=== PATIENT | female | born 1940 | race Caucasian/White ===

== ENCOUNTER 2016-06-06 13:15 | Inpatient (IN) | payer MEDICARE, OTHER ==
[~2016-06-06] VITALS: Ht 162.6 cm; Wt 127.0 kg
[2016-06-06] VITALS (10 sets, daily range): BP systolic 102–143; BP diastolic 54–80
[~2016-06-06 13:15] MED LIST: ALLO300T PO; APIX5TAB PO; ATOR40TA59 PO; CEPH250C PO; DILT120C97 PO; FURO40TA4 PO; FURO80TA3 PO; INSULIN DETEMIR 300 UNITS/3 ML INSULN.PEN. SQ SCH; LOSA1TAB16 PO; LOSA1TAB17 PO; LOSA25TA PO; NOVOLIN N SQ; NOVOLIN R SQ; PANT40TA5 PO; POTA10TA10 PO; losartan/HCTZ
[2016-06-06 15:47] LABS: BASO # 0.1 x10^3/uL (0.0-0.2); BASO % 1 % (0-3); EOS % 3 % (0-3); HEMATOCRIT 22.1 % (36.0-47.0); LYMPH # 1.1 x10^3/uL (1.0-4.8); LYMPH % 17 % (24-48); MEAN CORPUSCULAR HEMOGLOBIN 30 pg (25-35); MEAN CORPUSCULAR HGB CONC 31 g/dL (31-37); MEAN CORPUSCULAR VOLUME 95 fL (79-100); MONO % 8 % (0-9); NEUT % 71 % (31-73); PLATELET COUNT 332 x10^3/uL (140-400); RED BLOOD COUNT 2.34 x10^6/uL (3.50-5.40); RED CELL DISTRIBUTION WIDTH 19.9 % (11.5-14.5); WHITE BLOOD COUNT 6.4 x10^3/uL (4.0-11.0)
[2016-06-06 15:55] LABS: CALCIUM 9.1 mg/dL (8.5-10.1); CREATININE 1.8 mg/dL (0.6-1.0); GFR 27.4; POTASSIUM 3.9 mmol/L (3.5-5.1)
[2016-06-06 15:58] LABS: HEMOGLOBIN 6.9 g/dL (12.0-15.5)
--- NOTE | 2016-06-06 16:40 | PDOC2 ---
GI CONSULT Reason For Consult: Anemia HPI: HPI: 76 y/o female directly admitted by Dr. Moser for anemia. Denies abd pain, n/v, diarrhea, constipation, melena, hematochezia, weight loss, change in appetite, SOA, dizziness, weakness. Labs: Hgb 6.9 - compared to last admission w/ Hgb 11 then 9s w/ increased RDW. Transfusion and hemoccult ordered. Recently started on Eliquis for PE. Denies NSAID use. H/o GERD controlled w/ pantoprazole. No previous EGD. Colonoscopy in 2007 was unrevealing except for hemorrhoids. PMH: PMH: PE on Eliquis, DM, HLD, HTN, CARMEN, tonsillectomy, chest tube placement as a child for pneumonia, urosepsis retinopathy FH: Family History: No pertinent hx Social History: ALCOHOL: none Drugs: None ROS: GEN: Denies fevers, chills, sweats HEENT: Denies blurred vision, sore throat CV: Denies chest pain RESP: Denies shortness of air, cough GI: Per HPI : Denies hematuria, dysuria ENDO: Denies weight changes NEURO: Denies confusion, dizziness MSK: Denies weakness, joint pain/swelling SKIN: Denies jaundice, pruritus VItals: Vitals: Vital Signs Date Time Temp Pulse Resp B/P Pulse Ox O2 Delivery O2 Flow Rate FiO2 06/06/16 15:06 97.7 92 18 143/80 98 Room Air 97.7 Labs: Labs: Laboratory Tests Test 06/06/16 15:30 White Blood Count 6.4x10^3/uL (4.0-11.0) Red Blood Count 2.34x10^6/uL (3.50-5.40) Hemoglobin 6.9g/dL (12.0-15.5) Hematocrit 22.1% (36.0-47.0) Mean Corpuscular Volume 95fL (79-100) Mean Corpuscular Hemoglobin 30pg (25-35) Mean Corpuscular Hemoglobin Concent 31g/dL (31-37) Red Cell Distribution Width 19.9% (11.5-14.5) Platelet Count 332x10^3/uL (140-400) Neutrophils (%) (Auto) 71% (31-73) Lymphocytes (%) (Auto) 17% (24-48) Monocytes (%) (Auto) 8% (0-9) Eosinophils (%) (Auto) 3% (0-3) Basophils (%) (Auto) 1% (0-3) Neutrophils # (Auto) 4.6x10^3uL (1.8-7.7) Lymphocytes # (Auto) 1.1x10^3/uL (1.0-4.8) Monocytes # (Auto) 0.5x10^3/uL (0.0-1.1) Eosinophils # (Auto) 0.2x10^3/uL (0.0-0.7) Basophils # (Auto) 0.1x10^3/uL (0.0-0.2) Sodium Level 143mmol/L (136-145) Potassium Level 3.9mmol/L (3.5-5.1) Chloride Level 107mmol/L (98-107) Carbon Dioxide Level 24mmol/L (21-32) Anion Gap 12 (6-14) Blood Urea Nitrogen 44mg/dL (7-20) Creatinine 1.8mg/dL (0.6-1.0) Estimated GFR (Cockcroft-Gault) 27.4 Glucose Level 161mg/dL (70-99) Calcium Level 9.1mg/dL (8.5-10.1) Allergies: Coded Allergies: No Known Drug Allergies (Unverified , 08/26/13) Medications: Please see EMR. Imaging: Imaging: - PE: GEN: NAD HEENT: Atraumatic, PERRL LUNGS: CTAB HEART: RRR ABD: NABS, S/ND/NT, obese EXTREMITY: BLE edema SKIN: No rashes, no jaundice NEURO/PSYCH: A & O 3 A/P: A/P: Anemia -Hgb 6.9 (in Mar-) -denies GI symptoms GERD -controlled w/ PPI, no previous EGD CRC screen -colonoscopy 2007 w/ hemorrhoids Recent PE on Eliquis Elevated BMI of 47 -- D/w Dr. Mittal - EGD tomorrow a.m. r/o upper GI source of anemia. NPO at midnight. MARIS RYDER Jun 06, 2016 16:40
[2016-06-06] MEDS: INSULIN ASPART 300 UNITS/3 ML INSULN.PEN SQ SCH (18:02)
[2016-06-06 18:39] LABS: INR 1.6 (0.8-1.1); PROTHROMBIN TIME PATIENT 18.3 SEC (11.7-14.0)
[2016-06-06] MEDS ORDERED: FUROSEMIDE 40 MG/4 ML VIAL IVP ONE (19:45)
[2016-06-06] MEDS: ATORVASTATIN CALCIUM 40 MG TABLET. PO SCH (20:49)
[2016-06-06 20:51] LABS: NEG OBC FOB NEG; POS OBC FOB POS
[2016-06-06] MEDS: INSULIN DETEMIR 300 UNITS/3 ML INSULN.PEN. SQ SCH (21:34)
[2016-06-07 00:35] VITALS: BP 113/57
[2016-06-07 03:00] VITALS: BP 129/65
[2016-06-07 05:47] LABS: BASO # 0.1 x10^3/uL (0.0-0.2); BASO % 1 % (0-3); EOS % 5 % (0-3); HEMATOCRIT 26.5 % (36.0-47.0); HEMOGLOBIN 8.5 g/dL (12.0-15.5); LYMPH # 1.9 x10^3/uL (1.0-4.8); LYMPH % 23 % (24-48); MEAN CORPUSCULAR HEMOGLOBIN 29 pg (25-35); MEAN CORPUSCULAR HGB CONC 32 g/dL (31-37); MEAN CORPUSCULAR VOLUME 89 fL (79-100); MONO % 8 % (0-9); NEUT % 64 % (31-73); PLATELET COUNT 341 x10^3/uL (140-400); RED BLOOD COUNT 2.97 x10^6/uL (3.50-5.40); RED CELL DISTRIBUTION WIDTH 19.2 % (11.5-14.5)
[2016-06-07 07:00] VITALS: BP 121/59
[2016-06-07] MEDS: INSULIN ASPART 300 UNITS/3 ML INSULN.PEN SQ SCH ×3 (07:30→17:25)
[2016-06-07] MEDS: IV RINGERS,LACTATED 1000ML 1,000 ML IV SCH ×2 (08:21→22:20)
[2016-06-07] MEDS: INSULIN DETEMIR 300 UNITS/3 ML INSULN.PEN. SQ SCH ×2 (09:00→17:25)
[2016-06-07] MEDS ORDERED: PROPOFOL 20 ML IV ONE (09:23)
--- NOTE | 2016-06-07 09:38 | PDOC4 ---
Operative Note Operative Note EGD Meds Propofol 120 mg iv Pre-op dx acute blood loss anemia post-op dx watermelon stomach/gastropathy Plan ct abd/pelvis to assess for portal hypertension if unrevealing, IVC filter and stoppage of anticoagulation may be best option MANJU ESQUEDA MD Jun 07, 2016 09:38
[2016-06-07] MEDS ORDERED: IOHEXOL 240 MG/ML 50ML VIAL. PO ONE (10:45)
[2016-06-07] MEDS ORDERED: CONTRAST GIVEN MC PRN (11:00)
--- NOTE | 2016-06-07 11:39 | HP ---
ADMIT DATE: 06/06/2016 REASON FOR ADMISSION: GI bleed. CHIEF COMPLAINT: Fatigue. HISTORY OF PRESENT ILLNESS AND HOSPITAL COURSE: This patient is a 76-year-old female, who was initially seen in March 2016 with acute pulmonary embolus. She was treated with anticoagulation and subsequently went to detention where she improved to the point where she was able to be discharged home. She continued to come to the office for followup due to anemia noted during hospitalization, despite adequate iron and vitamin supplementation. The patient's blood counts continued to decline to the point that outpatient workup was felt not to be urgent enough due to the patient's increasing fatigue and decreasing hemoglobin to critical levels of less than 7. She was admitted to the hospital for further evaluation and GI workup. PAST MEDICAL HISTORY: Significant for: 1. New pulmonary embolus. 2. Morbid obesity. 3. Type 2 diabetes. 4. Hypertension. 5. Gouty arthritis. 6. Severe venous stasis. 7. Gastroesophageal reflux disease. 8. Chronic kidney disease stage 3. 9. High cholesterol. FAMILY HISTORY: Significant for mother who with lung cancer, brother who with pancreatic cancer. PAST SURGICAL HISTORY: Significant for surgery of kidney as well as tonsillectomy. SOCIAL HISTORY: The patient has never smoked or used alcohol. She lives with her sister. She is retired. REVIEW OF SYSTEMS: The patient states other than fatigue, she has been doing well. She has no nausea, vomiting or diarrhea. She notices black stools, but she takes iron pills and attributes this to that. PHYSICAL EXAMINATION: GENERAL: This is an obese female, in no apparent distress on my exam. Alert and oriented. She is pale. HEENT: Benign. NECK: Supple, without JVD or bruit. CARDIAC: Regular rate and rhythm. LUNGS: Clear. ABDOMEN: Soft, nontender. EXTREMITIES: There are venous stasis changes with 2+ edema and some redness on her right ankle, but it is nontender. NEUROLOGIC: Showed no unilateral findings. ASSESSMENT: 1. Gastrointestinal bleed with positive Hemoccult today. 2. Recent pulmonary embolus on anticoagulation. 3. Type 2 diabetes. 4. Hypertension. 5. High cholesterol. 6. Morbid obesity. 7. Chronic renal disease, stage 3-4. PLAN: To admit the patient, transfused 2 units packed red blood cells, add Lasix between units. Consult GI medicine for further evaluation. HARPREET ZAMORA MD DR: Jonny JOB#: [id number] / [id number]
--- NOTE | 2016-06-07 12:38 | RAD ---
EXAM: CT abdomen/pelvis without contrast. HISTORY: Gastrointestinal hemorrhage. TECHNIQUE: Computed tomography of the abdomen and pelvis was performed without intravenous contrast. COMPARISON: 05/20/2011. FINDINGS: Lung windows through the visualized portions of the bases reveal mild atelectasis. There is a calcified granuloma in the left hilum. Bone windows reveal no suspicious lesions. There is a subacute right posterior 10th rib fracture. There is at least moderate lower lumbar central canal stenosis. The liver, pancreas, gallbladder and adrenal glands are unremarkable without contrast. There is a calcified granuloma in the spleen. Cortical thinning is noted along both kidneys. There is no hydronephrosis. A small nodule laterally along the right kidney has decreased in size and may represent a small proteinaceous/hemorrhagic cyst. The stomach is unremarkable by CT. Duodenum and proximal small bowel also appear normal. There is no obstruction. The appendix is not inflamed. There are no pathologically enlarged lymph nodes. There are at least chronic calcifications at the origins of both renal arteries. IMPRESSION: 1. The stomach is unremarkable by CT. No small bowel or colonic lesions are identified, though sensitivity is low by this technique. 2. At least mild bilateral renal atrophy. 3. At least moderate lower lumbar central canal stenosis. *One or more of the following individualized dose reduction techniques were utilized for this examination: 1. Automated exposure control. 2. Adjustment of the mA and/or kV according to patient size. 3. Use of iterative reconstruction technique.
[2016-06-07 14:51] VITALS: BP 118/61
[2016-06-07] MEDS: DILTIAZEM HCL 120 MG CAP.ER.24H PO SCH (16:07)
[2016-06-07] MEDS: FUROSEMIDE 40 MG TABLET PO SCH (16:07)
[2016-06-07] MEDS: ALLOPURINOL 300 MG TABLET. PO SCH (16:07)
[2016-06-07] MEDS: PANTOPRAZOLE 40 MG TABLET. PO SCH (16:07)
[2016-06-07] MEDS: POTASSIUM CHLORIDE 10 MEQ TABLET.ER. PO SCH (16:08)
[2016-06-07] MEDS: LOSARTAN POTASSIUM 25 MG TABLET. PO SCH (16:08)
--- NOTE | 2016-06-07 16:17 | PDOC ---
Provider Note Provider Note dictated obtain repeat V/Q, dopplers hold AC for now ELIANA STONE MD Jun 07, 2016 16:17
--- NOTE | 2016-06-07 17:07 | CONS ---
DATE OF CONSULTATION: 06/07/2016 ATTENDING PHYSICIAN: Dr. Moser. REASON FOR CONSULTATION: Recent anemia and history of pulmonary embolism. HISTORY OF PRESENT ILLNESS: The patient is a 76-year-old female, who was seen by my partner Dr. Flanagan at the beginning of March with acute pulmonary embolism. Her V/Q scan was of high probability for pulmonary embolism. She had venous Dopplers which were a suboptimal study, but no DVT was observed. The patient states she has been on Eliquis since then. She was brought into the hospital after she was complaining of weakness and some progressive dyspnea. She was noted to have a hemoglobin level of 7 as an outpatient. The patient was admitted and seen by GI. Latest hemoglobin was 6.9. She underwent EGD. She had normal esophagus. She had enlarged gastric folds with hemorrhage. GI had recommended CT abdomen and pelvis and to look for portal hypertension. The patient states that due to back pain, she does not ambulate much. She has no known cancers. She was having some increase in exertional dyspnea recently due to anemia. No cough, no fever, no chills, no chest pain. She has chronic lower extremity edema and some venous stasis. Consultation requested for further evaluation and management. PAST MEDICAL HISTORY: Significant for: 1. Pulmonary embolism in March with no DVT. 2. Morbid obesity. 3. Type 2 diabetes. 4. Hypertension. 5. Gouty gastritis. 6. Venous stasis. 7. Gastroesophageal reflux disease. 8. CKD stage 3. 9. Dyslipidemia. PAST SURGICAL HISTORY: No recent surgeries. ALLERGIES: None. FAMILY HISTORY: Mother with lung cancer, brother with pancreatic cancer. SOCIAL HISTORY: Nonsmoker, nonalcoholic. REVIEW OF SYSTEMS: Twelve-point systems was obtained. Pertinent positives discussed in my history of present illness, otherwise noncontributory. All systems that were negative were reviewed as well. PHYSICAL EXAMINATION: VITAL SIGNS: Blood pressure 118/61, afebrile, pulse ox 98% on room air. NECK: Supple. LUNGS: Clear. CARDIOVASCULAR: Regular rate and rhythm. ABDOMEN: Soft, obese. EXTREMITIES: With venous stasis and bilateral pitting edema. LABORATORY DATA: Reviewed. White cell count 8.0, hemoglobin up from 6.9 to 8.5, platelets are 341. Her BUN is 44 and creatinine of 1.8. INR was 1.6. CT abdomen and pelvis showed mild renal atrophy and some lumbar central stenosis. No portal hypertension reported. IMPRESSION: 1. The patient with history of pulmonary embolism in March with no definite DVT. The risk factors were morbid obesity and sedentary lifestyle due to her chronic back pain. No known malignancy. She now comes in with anemia with a hemoglobin of 6.9 and increasing dyspnea secondary to anemia. She had an EGD done and it showed enlarged gastric folds with hemorrhage. At this time, anticoagulation has been kept on hold. I would recommend to repeat V/Q scan and venous Dopplers of lower extremities, and at this point it is reasonable to withhold anticoagulation and reassess the need for any IVC filter. 2. No significant history of tobacco use. 3. History of pulmonary embolism in March with no DVT and has been on Eliquis since then. 4. Recent acute blood loss anemia. RECOMMENDATIONS: 1. Obtain V/Q scan and venous Dopplers of lower extremities. 2. At this point, it is reasonable to withhold anticoagulation. 3. Pursue with further GI workup. She may need colonoscopy to rule out a lower GI source. 4. Follow hemoglobin post transfusion. 5. If venous Dopplers are positive, then IVC filter would be indicated. 6. Further recommendations to follow after review of imaging studies. Discussed with RN. ELIANA STONE MD DR: YONIS/roge JOB#: [id number] / [id number] LEAH
[2016-06-07 19:00] VITALS: BP 144/58
--- NOTE | 2016-06-07 20:22 | RAD ---
INDICATION: History of PE, follow up on PE diagnosed March 2016. TECHNIQUE: 5.0 mCi of Tc99m MAA administered intravenously and perfusion images obtained. 15.0 mCi of Xe-133 administered and ventilation images obtained. COMPARISON: None FINDINGS: There is improved distribution of radiotracer throughout both lungs on perfusion images when compared to the previous V/Q scan from March. Approximately two to three moderate wedge-shaped, peripheral perfusion defects persist within the lower lungs. IMPRESSION: Intermediate probability for pulmonary embolus. Findings relayed to the a floor nurse at 20:14 on 06/07/16. Electronically signed by: Yumiko Medellin (Jun 07, 2016 20:20:22)
[2016-06-07] MEDS: ATORVASTATIN CALCIUM 40 MG TABLET. PO SCH (22:10)
[2016-06-07 23:00] VITALS: BP 117/57
--- NOTE | 2016-06-08 02:03 | RAD ---
PROCEDURE Two-view chest dated 06/07/2016. HISTORY Possible pulmonary embolus. History PE. TECHNIQUE PA and lateral views obtained. COMPARISON None. FINDINGS Heart size upper limits of normal. Mediastinal contours within normal limits. Lungs are clear without focal consolidation. Vascular interstitium within normal limits. No pleural effusion or pneumothorax. IMPRESSION No acute radiographic abnormality. Electronically signed by: Dangelo Mcneill (Jun 08, 2016 02:01:21)
[2016-06-08 03:00] VITALS: BP 107/55
[2016-06-08 07:00] VITALS: BP 111/76
[2016-06-08 07:32] LABS: HEMATOCRIT 28.2 % (36.0-47.0); RED BLOOD COUNT 3.08 x10^6/uL (3.50-5.40); RED CELL DISTRIBUTION WIDTH 19.3 % (11.5-14.5); WHITE BLOOD COUNT 7.3 x10^3/uL (4.0-11.0)
[2016-06-08 07:44] LABS: CALCIUM 9.2 mg/dL (8.5-10.1); CREATININE 1.8 mg/dL (0.6-1.0); GFR 27.4; POTASSIUM 3.8 mmol/L (3.5-5.1)
[2016-06-08] MEDS: POTASSIUM CHLORIDE 10 MEQ TABLET.ER. PO SCH (08:40)
[2016-06-08] MEDS: PANTOPRAZOLE 40 MG TABLET. PO SCH (08:40)
[2016-06-08] MEDS: FUROSEMIDE 40 MG TABLET PO SCH (08:41)
[2016-06-08] MEDS: ALLOPURINOL 300 MG TABLET. PO SCH (08:41)
[2016-06-08] MEDS: LOSARTAN POTASSIUM 25 MG TABLET. PO SCH (08:41)
[2016-06-08] MEDS: DILTIAZEM HCL 120 MG CAP.ER.24H PO SCH (08:41)
--- NOTE | 2016-06-08 08:44 | RAD ---
Exam performed: Bilateral lower extremity venous Doppler. Clinical Indication: Chronic bilateral lower maturity swelling, history of PE, patient is diabetic Date of Service:06/07/16 Comparison : None available Discussion: Multiple longitudinal and transverse high resolution real-time images of the venous system of bilateral lower extremity were obtained with color and Doppler sampling and spectral analysis. The common femoral, superficial femoral, popliteal and proximal calf veins are all patent and demonstrate normal flow and compressibility. Normal respiratory phasicity and augmentation is present. Calf veins are not well seen due to swelling. Impression: No convincing evidence of DVT noted, given the limitation of swelling with suboptimal evaluation of the calf veins.
[2016-06-08] MEDS: INSULIN ASPART 300 UNITS/3 ML INSULN.PEN SQ SCH ×5 (08:53→17:04)
[2016-06-08] MEDS: INSULIN DETEMIR 300 UNITS/3 ML INSULN.PEN. SQ SCH ×2 (08:53→17:49)
[2016-06-08] MEDS ORDERED: DEXTROSE 50% 25 GM / 50ML DISP.SYRIN. IV PRN (10:00)
--- NOTE | 2016-06-08 10:06 | PDOC ---
SUBJECTIVE Subjective Pt states that she is feeling okay. No acute complaints. Discussed different options regarding IVC filter or potentially staying on blood thinners. Dr. Webb came in for a portion of this discussion, appreciate GI recommendations as well. OBJECTIVE Vital Signs Vital Signs Date Time Temp Pulse Resp B/P Pulse Ox O2 Delivery O2 Flow Rate FiO2 06/08/16 08:41 77 107/55 06/08/16 08:41 77 107/55 06/08/16 07:00 98.0 64 20 111/76 98 Room Air 98.0 06/08/16 03:00 98.3 77 18 107/55 97 98.3 06/07/16 23:00 98.2 77 18 117/57 97 98.2 06/07/16 20:00 Room Air 06/07/16 19:00 97.9 83 18 144/58 100 97.9 06/07/16 16:08 70 118/61 06/07/16 16:07 70 118/61 06/07/16 14:51 97.7 70 18 118/61 98 Room Air 97.7 06/07/16 10:05 72 20 106/75 100 Room Air I & O Intake and Output 06/08/16 07:00 Intake Total 1150 ml Output Total 1250 ml Balance -100 ml Intake Oral 1050 ml IV Total 100 ml Output Urine Total 1250 ml # Bowel Movements 1 PHYSICAL EXAM Physical Exam GEN: NAD, AOx3 HEENT: MMM, EOMI, no scleral icterus/injection Cardiac: RRR, no M/R/G Lungs: CTAB, regular breathing rate and effort Abd: soft, non distended, NTTP Ext: non pitting edema LE bilaterally Neuro: CN2-12 GI ASSESSMENT/PLAN Assessment/Plan Pt is a 76 yo CF admitted for anemia 2/2 GI bleed 1)Acute anemia- 2/2 GI bleed. Improved after 2 units PRCB tx yesterday. EGD showed watermelon stomach. CT Ab non revealing. Pt's V/Q scan still shows perfusion defects that persist. Appreciate GI recommendations. 2)Recent pulmonary embolus on anticoagulation- Pulmonology following. Anti- coagulation currently being held 3)Type 2 diabetes- previously uncontrolled with HbA1C 04/16 of 8.1, repeat pending. Fasting BS this morning was fairly well controlled. Pt currently continued on Levemir 37units BID, Novolog 25units TID. Will start SSI and QAC blood checks 4)Hypertension- pt more on hypotensive side. Currently receiving Losartan 25mg , Lasix 40mg. CTM 5)High cholesterol- pt continued on Atorvastatin 40mg 6)Morbid obesity. 7)Chronic renal disease, stage 3-4- Cr currently stable at 1.8. Electrolytes WNL 8)Hx afib- pt currently rate and rhythm controlled. Pt continued on Diltiazem 9)Gout- pt continued on Allopurinol Problems: COMMENT Lab Laboratory Tests Test 06/07/16 14:27 06/07/16 16:28 06/07/16 22:12 06/08/16 07:00 Glucose (Fingerstick) 116mg/dL (70-99) 209mg/dL (70-99) 106mg/dL (70-99) White Blood Count 7.3x10^3/uL (4.0-11.0) Red Blood Count 3.08x10^6/uL (3.50-5.40) Hemoglobin 9.0g/dL (12.0-15.5) Hematocrit 28.2% (36.0-47.0) Mean Corpuscular Volume 92fL (79-100) Mean Corpuscular Hemoglobin 29pg (25-35) Mean Corpuscular Hemoglobin Concent 32g/dL (31-37) Red Cell Distribution Width 19.3% (11.5-14.5) Platelet Count 334x10^3/uL (140-400) Sodium Level 141mmol/L (136-145) Potassium Level 3.8mmol/L (3.5-5.1) Chloride Level 106mmol/L (98-107) Carbon Dioxide Level 26mmol/L (21-32) Anion Gap 9 (6-14) Blood Urea Nitrogen 34mg/dL (7-20) Creatinine 1.8mg/dL (0.6-1.0) Estimated GFR (Cockcroft-Gault) 27.4 Glucose Level 131mg/dL (70-99) Calcium Level 9.2mg/dL (8.5-10.1) SCAR JORGE MD Jun 08, 2016 10:06
--- NOTE | 2016-06-08 10:17 | PDOC ---
PULMONARY PROGRESS NOTES Subjective NO SOA Vitals Vital Signs Date Time Temp Pulse Resp B/P Pulse Ox O2 Delivery O2 Flow Rate FiO2 06/08/16 08:41 77 107/55 06/08/16 07:00 98.0 20 98 Room Air 98.0 General: Alert, Oriented X4, No acute distress Lungs: Clear Cardiovascular: S1 Abdomen: Soft, Non-tender Neuro Exam: Alert Extremities: Other (2+edema/ stasis) Labs Laboratory Tests Test 06/06/16 15:30 06/06/16 16:22 06/06/16 19:00 06/06/16 21:00 White Blood Count 6.4x10^3/uL (4.0-11.0) Red Blood Count 2.34x10^6/uL (3.50-5.40) Hemoglobin 6.9g/dL (12.0-15.5) Hematocrit 22.1% (36.0-47.0) Mean Corpuscular Volume 95fL (79-100) Mean Corpuscular Hemoglobin 30pg (25-35) Mean Corpuscular Hemoglobin Concent 31g/dL (31-37) Red Cell Distribution Width 19.9% (11.5-14.5) Platelet Count 332x10^3/uL (140-400) Neutrophils (%) (Auto) 71% (31-73) Lymphocytes (%) (Auto) 17% (24-48) Monocytes (%) (Auto) 8% (0-9) Eosinophils (%) (Auto) 3% (0-3) Basophils (%) (Auto) 1% (0-3) Neutrophils # (Auto) 4.6x10^3uL (1.8-7.7) Lymphocytes # (Auto) 1.1x10^3/uL (1.0-4.8) Monocytes # (Auto) 0.5x10^3/uL (0.0-1.1) Eosinophils # (Auto) 0.2x10^3/uL (0.0-0.7) Basophils # (Auto) 0.1x10^3/uL (0.0-0.2) Prothrombin Time 18.3SEC (11.7-14.0) Prothromb Time International Ratio 1.6 (0.8-1.1) Sodium Level 143mmol/L (136-145) Potassium Level 3.9mmol/L (3.5-5.1) Chloride Level 107mmol/L (98-107) Carbon Dioxide Level 24mmol/L (21-32) Anion Gap 12 (6-14) Blood Urea Nitrogen 44mg/dL (7-20) Creatinine 1.8mg/dL (0.6-1.0) Estimated GFR (Cockcroft-Gault) 27.4 Glucose Level 161mg/dL (70-99) Calcium Level 9.1mg/dL (8.5-10.1) Glucose (Fingerstick) 172mg/dL (70-99) 88mg/dL (70-99) Stool Occult Blood Positive (NEG) Test 06/06/16 23:52 06/07/16 05:00 06/07/16 07:21 06/07/16 14:27 Glucose (Fingerstick) 81mg/dL (70-99) 84mg/dL (70-99) 116mg/dL (70-99) White Blood Count 8.0x10^3/uL (4.0-11.0) Red Blood Count 2.97x10^6/uL (3.50-5.40) Hemoglobin 8.5g/dL (12.0-15.5) Hematocrit 26.5% (36.0-47.0) Mean Corpuscular Volume 89fL (79-100) Mean Corpuscular Hemoglobin 29pg (25-35) Mean Corpuscular Hemoglobin Concent 32g/dL (31-37) Red Cell Distribution Width 19.2% (11.5-14.5) Platelet Count 341x10^3/uL (140-400) Neutrophils (%) (Auto) 64% (31-73) Lymphocytes (%) (Auto) 23% (24-48) Monocytes (%) (Auto) 8% (0-9) Eosinophils (%) (Auto) 5% (0-3) Basophils (%) (Auto) 1% (0-3) Neutrophils # (Auto) 5.1x10^3uL (1.8-7.7) Lymphocytes # (Auto) 1.9x10^3/uL (1.0-4.8) Monocytes # (Auto) 0.6x10^3/uL (0.0-1.1) Eosinophils # (Auto) 0.4x10^3/uL (0.0-0.7) Basophils # (Auto) 0.1x10^3/uL (0.0-0.2) Reticulocyte Count (auto) 2.6% (0.5-2.5) Haptoglobin 278mg/dL (34-200) Test 06/07/16 16:28 06/07/16 22:12 06/08/16 07:00 Glucose (Fingerstick) 209mg/dL (70-99) 106mg/dL (70-99) White Blood Count 7.3x10^3/uL (4.0-11.0) Red Blood Count 3.08x10^6/uL (3.50-5.40) Hemoglobin 9.0g/dL (12.0-15.5) Hematocrit 28.2% (36.0-47.0) Mean Corpuscular Volume 92fL (79-100) Mean Corpuscular Hemoglobin 29pg (25-35) Mean Corpuscular Hemoglobin Concent 32g/dL (31-37) Red Cell Distribution Width 19.3% (11.5-14.5) Platelet Count 334x10^3/uL (140-400) Sodium Level 141mmol/L (136-145) Potassium Level 3.8mmol/L (3.5-5.1) Chloride Level 106mmol/L (98-107) Carbon Dioxide Level 26mmol/L (21-32) Anion Gap 9 (6-14) Blood Urea Nitrogen 34mg/dL (7-20) Creatinine 1.8mg/dL (0.6-1.0) Estimated GFR (Cockcroft-Gault) 27.4 Glucose Level 131mg/dL (70-99) Calcium Level 9.2mg/dL (8.5-10.1) Laboratory Tests Test 06/07/16 14:27 06/07/16 16:28 06/07/16 22:12 06/08/16 07:00 Glucose (Fingerstick) 116mg/dL (70-99) 209mg/dL (70-99) 106mg/dL (70-99) White Blood Count 7.3x10^3/uL (4.0-11.0) Red Blood Count 3.08x10^6/uL (3.50-5.40) Hemoglobin 9.0g/dL (12.0-15.5) Hematocrit 28.2% (36.0-47.0) Mean Corpuscular Volume 92fL (79-100) Mean Corpuscular Hemoglobin 29pg (25-35) Mean Corpuscular Hemoglobin Concent 32g/dL (31-37) Red Cell Distribution Width 19.3% (11.5-14.5) Platelet Count 334x10^3/uL (140-400) Sodium Level 141mmol/L (136-145) Potassium Level 3.8mmol/L (3.5-5.1) Chloride Level 106mmol/L (98-107) Carbon Dioxide Level 26mmol/L (21-32) Anion Gap 9 (6-14) Blood Urea Nitrogen 34mg/dL (7-20) Creatinine 1.8mg/dL (0.6-1.0) Estimated GFR (Cockcroft-Gault) 27.4 Glucose Level 131mg/dL (70-99) Calcium Level 9.2mg/dL (8.5-10.1) Medications Active Scripts Medications Dose Route/Sig Days Date Category Eliquis (Apixaban) 5 Mg Tablet 5 Mg PO BID 04/04/16 Rx Cozaar (Losartan Potassium) 25 Mg Tablet 25 Mg PO DAILY 04/04/16 Rx Diltiazem 24HR Cd (Diltiazem Hcl) 120 Mg Cap.er.24h 120 Mg PO DAILY 04/04/16 Rx Furosemide 40 Mg Tablet 1 Tab PO DAILY 04/01/16 Reported [novolin R] 25 Units SQ TIDAC 04/01/16 Reported [novolin N] 37 Units SQ BIDAFTMEAL 04/01/16 Reported Potassium Chloride 10 Meq Tablet.er 10 Meq PO DAILY 04/01/16 Reported Pantoprazole Sodium 40 Mg Tablet.dr 1 Tab PO DAILY 04/01/16 Reported Atorvastatin Calcium 40 Mg Tablet 1 Tab PO QHS 04/01/16 Reported Allopurinol 300 Mg Tablet 1 Tab PO DAILY 04/01/16 Reported Impression . 1. The patient with history of pulmonary embolism in March with no definite DVT. The risk factors were morbid obesity and sedentary lifestyle due to her chronic back pain. No known malignancy. She now comes in with anemia with a hemoglobin of 6.9 and increasing dyspnea secondary to anemia. She had an EGD done and it showed enlarged gastric folds with hemorrhage. At this time, anticoagulation has been kept on hold. repeat V/Q scan indeterminate prob for PE (improved from high prob) and no DVT by venous Dopplers of lower extremities. CT abdomen with no portal HTN. she may need colonoscopy. Await GI rec regarding absolute contra-indication for AC 2. No significant history of tobacco use. 3. History of pulmonary embolism in March with no DVT and has been on Eliquis since then. 4. Recent acute blood loss anemia. Plan . 1. Indeterminate V/Q scan and negative venous Dopplers of lower extremities.IVC filter may not help but can be considered. 2. At this point, it is reasonable to withhold anticoagulation. 3. Pursue with further GI workup. She may need colonoscopy to rule out a lower GI source. 4. Follow hemoglobin 5. Await GI recommendations regarding absolute contraindication to AC 6. d/w PCP ELIANA STONE MD Jun 08, 2016 10:17
[2016-06-08 11:00] VITALS: BP 105/69
[2016-06-08] MEDS: IV RINGERS,LACTATED 1000ML 1,000 ML IV SCH (12:58)
[2016-06-08 15:00] VITALS: BP 103/52
--- NOTE | 2016-06-08 17:23 | PDOC ---
GI PROGRESS NOTES Date Date/Time DATE: 06/08/16 TIME: 17:13 Subjective Subjective eating - feeling better still with SOA with walking and back pain Objective Vitals Vital Signs Date Time Temp Pulse Resp B/P Pulse Ox O2 Delivery O2 Flow Rate FiO2 06/08/16 11:00 98.0 68 22 105/69 96 Room Air 98.0 06/08/16 08:41 77 107/55 06/08/16 08:41 77 107/55 06/08/16 08:00 Room Air 06/08/16 07:00 98.0 64 20 111/76 98 Room Air 98.0 06/08/16 03:00 98.3 77 18 107/55 97 98.3 06/07/16 23:00 98.2 77 18 117/57 97 98.2 06/07/16 20:00 Room Air 06/07/16 19:00 97.9 83 18 144/58 100 97.9 Labs Labs Laboratory Tests Test 06/07/16 22:12 06/08/16 07:00 06/08/16 11:01 06/08/16 16:38 Glucose (Fingerstick) 106mg/dL (70-99) 138mg/dL (70-99) 83mg/dL (70-99) White Blood Count 7.3x10^3/uL (4.0-11.0) Red Blood Count 3.08x10^6/uL (3.50-5.40) Hemoglobin 9.0g/dL (12.0-15.5) Hematocrit 28.2% (36.0-47.0) Mean Corpuscular Volume 92fL (79-100) Mean Corpuscular Hemoglobin 29pg (25-35) Mean Corpuscular Hemoglobin Concent 32g/dL (31-37) Red Cell Distribution Width 19.3% (11.5-14.5) Platelet Count 334x10^3/uL (140-400) Sodium Level 141mmol/L (136-145) Potassium Level 3.8mmol/L (3.5-5.1) Chloride Level 106mmol/L (98-107) Carbon Dioxide Level 26mmol/L (21-32) Anion Gap 9 (6-14) Blood Urea Nitrogen 34mg/dL (7-20) Creatinine 1.8mg/dL (0.6-1.0) Estimated GFR (Cockcroft-Gault) 27.4 Glucose Level 131mg/dL (70-99) Calcium Level 9.2mg/dL (8.5-10.1) Physical Exam Physical Exam abd- soft Assessment Assessment Gastric vascular AVMS- watermelon stomach- CT shows NO evidence for cirrhosis or portal hypertension as a potential cause- Bleeding- appears to have stopped and Hgb now stable But with history of PE- must review all options- risk of rebleeding with this gastric lesion if anti-coags are restarted- unclear how risky . Additionally disucssed IVC filter but patient states no history of DVT- Im not sure n=how accruate that is, but it would determine logic for IVC filter I will defer to pulm and PCP on these difficult decisions Problems: JUAN JOSÉ CERDA MD Jun 08, 2016 17:23
[2016-06-08 19:00] VITALS: BP 104/59
[2016-06-08] MEDS: ATORVASTATIN CALCIUM 40 MG TABLET. PO SCH (20:29)
[2016-06-08 22:32] VITALS: BP 113/56
[2016-06-09] MEDS: IV RINGERS,LACTATED 1000ML 1,000 ML IV SCH ×2 (00:53→14:20)
[2016-06-09 03:00] VITALS: BP 107/53
[2016-06-09 05:39] LABS: HEMATOCRIT 26.1 % (36.0-47.0); HEMOGLOBIN 8.4 g/dL (12.0-15.5); RED BLOOD COUNT 2.86 x10^6/uL (3.50-5.40); RED CELL DISTRIBUTION WIDTH 18.8 % (11.5-14.5); WHITE BLOOD COUNT 6.9 x10^3/uL (4.0-11.0)
[2016-06-09 06:00] LABS: CALCIUM 8.9 mg/dL (8.5-10.1); GFR 24.3; POTASSIUM 4.3 mmol/L (3.5-5.1)
[2016-06-09 07:00] VITALS: BP 120/63
--- NOTE | 2016-06-09 07:22 | PDOC ---
SUBJECTIVE Subjective Pt's Hb decreased slightly over the last 24 hours; she has not noticed any active bleeding. She is still unsure of what option she would like to pursue; discussed different treatment options again with pt. She is otherwise doing well OBJECTIVE Vital Signs Vital Signs Date Time Temp Pulse Resp B/P Pulse Ox O2 Delivery O2 Flow Rate FiO2 06/09/16 03:00 98.4 72 19 107/53 99 Room Air 98.4 06/08/16 22:32 98.0 74 18 113/56 98 Room Air 98.0 06/08/16 19:00 97.6 78 18 104/59 100 Room Air 97.6 06/08/16 15:00 97.5 76 20 103/52 97 Room Air 97.5 06/08/16 11:00 98.0 68 22 105/69 96 Room Air 98.0 06/08/16 08:41 77 107/55 06/08/16 08:41 77 107/55 06/08/16 08:00 Room Air I & O Intake and Output 06/09/16 07:00 Intake Total 2426 ml Output Total 1900 ml Balance 526 ml Intake Oral 2426 ml Output Urine Total 1900 ml PHYSICAL EXAM Physical Exam GEN: NAD, AOx3 HEENT: MMM, EOMI, no scleral icterus/injection Cardiac: RRR, no M/R/G Lungs: CTAB, regular breathing rate and effort Abd: soft, non distended, NTTP Ext: non pitting edema LE bilaterally Neuro: CN2-12 GI ASSESSMENT/PLAN Assessment/Plan Pt is a 76 yo CF admitted for anemia 2/2 GI bleed 1)Acute anemia- 2/2 GI bleed, EGD showed watermelon stomach. Hb initially improved after 2 units PRCB, but starting to trend down again. CT Ab non revealing. Pt's V/Q scan shows perfusion defects that persist, normal LE dopplers. Currently holding anti-coagulation. Pt is still unsure on which treatment option she would like to pursue 2)Recent pulmonary embolus on anticoagulation- Pulmonology following. Anti- coagulation currently being held. See above 3)Type 2 diabetes- previously uncontrolled with HbA1C 04/16 of 8.1, but now controlled with HbA1C of 6. Pt currently continued on Levemir 37units BID, Novolog 25units TID. Will start SSI and QAC blood checks 4)Hypertension- pt continues to be more on hypotensive side. Will hold pt's Losartan for now and continue her Lasix 40mg 5)High cholesterol- pt continued on Atorvastatin 40mg 6)Morbid obesity. 7)Chronic renal disease, stage 3-4- Cr currently stable at 2. Electrolytes WNL 8)Hx afib- pt currently rate and rhythm controlled. Pt continued on Diltiazem 9)Gout- pt continued on Allopurinol Problems: COMMENT Lab Laboratory Tests Test 06/08/16 11:01 06/08/16 16:38 06/08/16 20:13 06/08/16 20:35 Glucose (Fingerstick) 138mg/dL (70-99) 83mg/dL (70-99) 68mg/dL (70-99) 88mg/dL (70-99) Test 06/09/16 00:15 06/09/16 05:05 Glucose (Fingerstick) 152mg/dL (70-99) White Blood Count 6.9x10^3/uL (4.0-11.0) Red Blood Count 2.86x10^6/uL (3.50-5.40) Hemoglobin 8.4g/dL (12.0-15.5) Hematocrit 26.1% (36.0-47.0) Mean Corpuscular Volume 91fL (79-100) Mean Corpuscular Hemoglobin 29pg (25-35) Mean Corpuscular Hemoglobin Concent 32g/dL (31-37) Red Cell Distribution Width 18.8% (11.5-14.5) Platelet Count 315x10^3/uL (140-400) Sodium Level 143mmol/L (136-145) Potassium Level 4.3mmol/L (3.5-5.1) Chloride Level 107mmol/L (98-107) Carbon Dioxide Level 28mmol/L (21-32) Anion Gap 8 (6-14) Blood Urea Nitrogen 38mg/dL (7-20) Creatinine 2.0mg/dL (0.6-1.0) Estimated GFR (Cockcroft-Gault) 24.3 Glucose Level 116mg/dL (70-99) Calcium Level 8.9mg/dL (8.5-10.1) SCAR JORGE MD Jun 09, 2016 07:21
[2016-06-09] MEDS: INSULIN ASPART 300 UNITS/3 ML INSULN.PEN SQ SCH ×6 (07:40→16:58)
[2016-06-09] MEDS: POTASSIUM CHLORIDE 10 MEQ TABLET.ER. PO SCH (07:43)
[2016-06-09] MEDS: PANTOPRAZOLE 40 MG TABLET. PO SCH (07:43)
[2016-06-09] MEDS: FUROSEMIDE 40 MG TABLET PO SCH (09:01)
[2016-06-09] MEDS: ALLOPURINOL 300 MG TABLET. PO SCH (09:01)
[2016-06-09] MEDS: DILTIAZEM HCL 120 MG CAP.ER.24H PO SCH (09:01)
[2016-06-09] MEDS: INSULIN DETEMIR 300 UNITS/3 ML INSULN.PEN. SQ SCH ×2 (09:04→18:13)
[2016-06-09 11:00] VITALS: BP 115/69
--- NOTE | 2016-06-09 12:24 | PDOC ---
PULMONARY PROGRESS NOTES Subjective NO SOA Vitals Vital Signs Date Time Temp Pulse Resp B/P Pulse Ox O2 Delivery O2 Flow Rate FiO2 06/09/16 09:01 75 120/63 06/09/16 07:50 Room Air 06/09/16 07:00 97.3 22 97 97.3 General: Alert, Oriented X4, No acute distress Lungs: Clear Cardiovascular: S1 Abdomen: Soft, Non-tender Neuro Exam: Alert Extremities: Other (2+edema/ stasis) Labs Laboratory Tests Test 06/07/16 14:27 06/07/16 16:28 06/07/16 22:12 06/08/16 07:00 Glucose (Fingerstick) 116mg/dL (70-99) 209mg/dL (70-99) 106mg/dL (70-99) White Blood Count 7.3x10^3/uL (4.0-11.0) Red Blood Count 3.08x10^6/uL (3.50-5.40) Hemoglobin 9.0g/dL (12.0-15.5) Hematocrit 28.2% (36.0-47.0) Mean Corpuscular Volume 92fL (79-100) Mean Corpuscular Hemoglobin 29pg (25-35) Mean Corpuscular Hemoglobin Concent 32g/dL (31-37) Red Cell Distribution Width 19.3% (11.5-14.5) Platelet Count 334x10^3/uL (140-400) Sodium Level 141mmol/L (136-145) Potassium Level 3.8mmol/L (3.5-5.1) Chloride Level 106mmol/L (98-107) Carbon Dioxide Level 26mmol/L (21-32) Anion Gap 9 (6-14) Blood Urea Nitrogen 34mg/dL (7-20) Creatinine 1.8mg/dL (0.6-1.0) Estimated GFR (Cockcroft-Gault) 27.4 Glucose Level 131mg/dL (70-99) Hemoglobin A1c 6.0% (4.8-5.6) Calcium Level 9.2mg/dL (8.5-10.1) Test 06/08/16 11:01 06/08/16 16:38 06/08/16 20:13 06/08/16 20:35 Glucose (Fingerstick) 138mg/dL (70-99) 83mg/dL (70-99) 68mg/dL (70-99) 88mg/dL (70-99) Test 06/09/16 00:15 06/09/16 05:05 06/09/16 07:23 06/09/16 11:18 Glucose (Fingerstick) 152mg/dL (70-99) 111mg/dL (70-99) 118mg/dL (70-99) White Blood Count 6.9x10^3/uL (4.0-11.0) Red Blood Count 2.86x10^6/uL (3.50-5.40) Hemoglobin 8.4g/dL (12.0-15.5) Hematocrit 26.1% (36.0-47.0) Mean Corpuscular Volume 91fL (79-100) Mean Corpuscular Hemoglobin 29pg (25-35) Mean Corpuscular Hemoglobin Concent 32g/dL (31-37) Red Cell Distribution Width 18.8% (11.5-14.5) Platelet Count 315x10^3/uL (140-400) Sodium Level 143mmol/L (136-145) Potassium Level 4.3mmol/L (3.5-5.1) Chloride Level 107mmol/L (98-107) Carbon Dioxide Level 28mmol/L (21-32) Anion Gap 8 (6-14) Blood Urea Nitrogen 38mg/dL (7-20) Creatinine 2.0mg/dL (0.6-1.0) Estimated GFR (Cockcroft-Gault) 24.3 Glucose Level 116mg/dL (70-99) Calcium Level 8.9mg/dL (8.5-10.1) Laboratory Tests Test 06/08/16 16:38 06/08/16 20:13 06/08/16 20:35 06/09/16 00:15 Glucose (Fingerstick) 83mg/dL (70-99) 68mg/dL (70-99) 88mg/dL (70-99) 152mg/dL (70-99) Test 06/09/16 05:05 06/09/16 07:23 06/09/16 11:18 White Blood Count 6.9x10^3/uL (4.0-11.0) Red Blood Count 2.86x10^6/uL (3.50-5.40) Hemoglobin 8.4g/dL (12.0-15.5) Hematocrit 26.1% (36.0-47.0) Mean Corpuscular Volume 91fL (79-100) Mean Corpuscular Hemoglobin 29pg (25-35) Mean Corpuscular Hemoglobin Concent 32g/dL (31-37) Red Cell Distribution Width 18.8% (11.5-14.5) Platelet Count 315x10^3/uL (140-400) Sodium Level 143mmol/L (136-145) Potassium Level 4.3mmol/L (3.5-5.1) Chloride Level 107mmol/L (98-107) Carbon Dioxide Level 28mmol/L (21-32) Anion Gap 8 (6-14) Blood Urea Nitrogen 38mg/dL (7-20) Creatinine 2.0mg/dL (0.6-1.0) Estimated GFR (Cockcroft-Gault) 24.3 Glucose Level 116mg/dL (70-99) Calcium Level 8.9mg/dL (8.5-10.1) Glucose (Fingerstick) 111mg/dL (70-99) 118mg/dL (70-99) Medications Active Scripts Medications Dose Route/Sig Days Date Category Eliquis (Apixaban) 5 Mg Tablet 5 Mg PO BID 04/04/16 Rx Cozaar (Losartan Potassium) 25 Mg Tablet 25 Mg PO DAILY 04/04/16 Rx Diltiazem 24HR Cd (Diltiazem Hcl) 120 Mg Cap.er.24h 120 Mg PO DAILY 04/04/16 Rx Furosemide 40 Mg Tablet 1 Tab PO DAILY 04/01/16 Reported [novolin R] 25 Units SQ TIDAC 04/01/16 Reported [novolin N] 37 Units SQ BIDAFTMEAL 04/01/16 Reported Potassium Chloride 10 Meq Tablet.er 10 Meq PO DAILY 04/01/16 Reported Pantoprazole Sodium 40 Mg Tablet.dr 1 Tab PO DAILY 04/01/16 Reported Atorvastatin Calcium 40 Mg Tablet 1 Tab PO QHS 04/01/16 Reported Allopurinol 300 Mg Tablet 1 Tab PO DAILY 04/01/16 Reported Impression . 1. The patient with history of pulmonary embolism in March with no definite DVT. The risk factors were morbid obesity and sedentary lifestyle due to her chronic back pain. No known malignancy. She now comes in with anemia with a hemoglobin of 6.9 and increasing dyspnea secondary to anemia. She had an EGD done and it showed Gastric vascular AVMS- watermelon stomach- CT shows NO evidence for cirrhosis or portal hypertension as a potential cause- Bleeding- appears to have stopped and Hgb trending down again anticoagulation has been kept on hold. repeat V/Q scan indeterminate prob for PE (improved from high prob) and no DVT by venous Dopplers of lower extremities. 2. No significant history of tobacco use. 3. History of pulmonary embolism in March with no DVT and has been on Eliquis since then. 4. Recent acute blood loss anemia. Plan . 1. Indeterminate V/Q scan and negative venous Dopplers of lower extremities. 2. At this point, it is reasonable to withhold anticoagulation as risk of bleeding outweighs benefits 3. Pursue with further GI workup.? may need colonoscopy to rule out a lower GI source. 4. Follow hemoglobin 5. I had a lengthy discussion with patient. I told her that at this point anti- coagulation needs to be avoided due to ongoing anemia.She is definitive at risk for recurrent PE without AC due to her sedentary life style .IVC filter may be an option but since she had no DVT on two occasions , it may not provide full protection from recurrent PE but still may be considered. she is somewhat reluctant about it but will think about it and let us know 6. d/w PCP ELIANA STONE MD Jun 09, 2016 12:23
[2016-06-09 15:00] VITALS: BP 125/57
[2016-06-09 19:40] VITALS: BP 110/60
[2016-06-09] MEDS: ATORVASTATIN CALCIUM 40 MG TABLET. PO SCH (21:14)
[2016-06-09 23:00] VITALS: BP 114/57
[2016-06-10 02:42] VITALS: BP 109/54
[2016-06-10 07:00] VITALS: BP 121/70
--- NOTE | 2016-06-10 08:15 | PDOC ---
PROGRESS NOTES Subjective Subjective Patient without complaint, feels much better, ready to go home today. Objective Objective Vital Signs Date Time Temp Pulse Resp B/P Pulse Ox O2 Delivery O2 Flow Rate FiO2 06/10/16 02:42 98.3 74 24 109/54 98 Room Air 98.3 06/09/16 19:40 Intake and Output 06/10/16 07:00 Intake Total 1430 ml Output Total 2300 ml Balance -870 ml Intake Oral 1430 ml Output Urine Total 2300 ml # Voids 1 # Bowel Movements 1 Physical Exam Abdomen: Normal bowel sounds, Soft, No tenderness Heart: Regular rate Extremities: Other (moderate diffuse edema bilateral LE's) General: Alert, Oriented X3, No acute distress Lungs: Clear to auscultation Assessment Assessment Problems Medical Problems: (1) Acute upper GI bleed Status: Acute (2) Anemia Status: Acute (3) GI bleed Status: Acute Plan Plan of Care 1. Upper GI bleed from gastric AVM's - Hgb stable from yesterday. Home today on po Fe and close follow up in our office. 2. recent PE's - improving on VQ scan. Not hypoxic on RA. Risks and benefits of anticoagulation and'/or IVC filter placement discussed. Appears best at this time for patient to continue without anticoagulation. Venous dopplers negative for DVT's this admission and in March so difficult to say that she would benefit from filter placement. 3. DM2 - well controlled, continue insulins. 4. HTN - BP stable, will have patient resume her usual low dose of Losartan at home, continue Cardizem also. 5. venous insufficiency - chronic, stable. 6. CKD - stable, patient appears at baseline. Comment Review of Relevant I have reviewed the following items edis (where applicable) has been applied. Labs Laboratory Tests Test 06/08/16 11:01 06/08/16 16:38 06/08/16 20:13 06/08/16 20:35 Glucose (Fingerstick) 138mg/dL (70-99) 83mg/dL (70-99) 68mg/dL (70-99) 88mg/dL (70-99) Test 06/09/16 00:15 06/09/16 05:05 06/09/16 07:23 06/09/16 11:18 Glucose (Fingerstick) 152mg/dL (70-99) 111mg/dL (70-99) 118mg/dL (70-99) White Blood Count 6.9x10^3/uL (4.0-11.0) Red Blood Count 2.86x10^6/uL (3.50-5.40) Hemoglobin 8.4g/dL (12.0-15.5) Hematocrit 26.1% (36.0-47.0) Mean Corpuscular Volume 91fL (79-100) Mean Corpuscular Hemoglobin 29pg (25-35) Mean Corpuscular Hemoglobin Concent 32g/dL (31-37) Red Cell Distribution Width 18.8% (11.5-14.5) Platelet Count 315x10^3/uL (140-400) Sodium Level 143mmol/L (136-145) Potassium Level 4.3mmol/L (3.5-5.1) Chloride Level 107mmol/L (98-107) Carbon Dioxide Level 28mmol/L (21-32) Anion Gap 8 (6-14) Blood Urea Nitrogen 38mg/dL (7-20) Creatinine 2.0mg/dL (0.6-1.0) Estimated GFR (Cockcroft-Gault) 24.3 Glucose Level 116mg/dL (70-99) Calcium Level 8.9mg/dL (8.5-10.1) Test 06/09/16 16:56 06/09/16 20:14 06/10/16 06:10 06/10/16 07:16 Glucose (Fingerstick) 77mg/dL (70-99) 129mg/dL (70-99) 101mg/dL (70-99) Hemoglobin 8.5g/dL (12.0-15.5) Laboratory Tests Test 06/09/16 11:18 06/09/16 16:56 06/09/16 20:14 06/10/16 06:10 Glucose (Fingerstick) 118mg/dL (70-99) 77mg/dL (70-99) 129mg/dL (70-99) Hemoglobin 8.5g/dL (12.0-15.5) Test 06/10/16 07:16 Glucose (Fingerstick) 101mg/dL (70-99) Medications Current Medications Allopurinol (Zyloprim) 300 mg DAILY PO Last administered on 06/09/16 09:01; Start 06/07/16 at 09:00 Atorvastatin Calcium (Lipitor) 40 mg QHS PO Last administered on 06/09/16 21: 14; Start 06/06/16 at 21:00 Diltiazem HCl (Cardizem 24hr Cd) 120 mg DAILY PO Last administered on 09:01; Start 06/07/16 at 09:00 Furosemide (Lasix) 40 mg DAILY PO Last administered on 06/09/16 09:01; Start 06/07/16 at 09:00 Losartan Potassium (Cozaar) 25 mg DAILY PO Last administered on 06/08/16 08:41 ; Start 06/07/16 at 09:00; Stop 06/09/16 at 07:21; Status DC Pantoprazole Sodium (Protonix) 40 mg DAILYAC PO Last administered on 06/09/16 07:43; Start 06/07/16 at 07:30 Potassium Chloride (Klor-Con) 10 meq [id number] PO Last administered on 07:43; Start 06/07/16 at 08:00 Insulin Detemir (Levemir) 37 units BIDAFTMEAL SQ ; Start 06/05/16 at 09:00; Stop 06/06/16 at 15:35; Status DC Insulin Aspart (Novolog) 25 units TIDAC SQ Last administered on 06/09/16 16:58 ; Start 06/06/16 at 16:30 Insulin Detemir (Levemir) 37 units BIDAFTMEAL SQ Last administered on 18:13; Start 06/06/16 at 18:00 Furosemide 40 mg 40 mg 1X ONCE IVP Last administered on 06/06/16 20:48; Start 06/06/16 at 19:45; Stop 06/06/16 at 19:46; Status DC Lactated Ringer's 1,000 ml @ 75 mls/hr [id number] IV Last administered on 08:21; Start 06/07/16 at 09:00 Propofol (Diprivan) 20 ml @ As Directed STK-MED ONCE IV ; Start 06/07/16 at 09: 23; Stop 06/07/16 at 09:24; Status DC Iohexol (Omnipaque 240 Mg/ml) 40 ml 1X ONCE PO Last administered on 06/07/16t 10:45; Start 06/07/16 at 10:45; Stop 06/07/16 at 10:49; Status DC Info (Do NOT chart on this entry -- for MONITORING) 1 each PRN DAILY PRN MC SEE COMMENTS; Start 06/07/16 at 11:00; Stop 06/09/16 at 10:59; Status DC Insulin Aspart (Novolog) 0-7 UNITS TIDWMEALS SQ ; Start 06/08/16 at 12:00 Dextrose 12.5 gm PRN Q15MIN PRN IV SEE COMMENTS; Start 06/08/16 at 10:00 Active Scripts Active Eliquis (Apixaban) 5 Mg Tablet 5 Mg PO BID Cozaar (Losartan Potassium) 25 Mg Tablet 25 Mg PO DAILY Diltiazem 24HR Cd (Diltiazem Hcl) 120 Mg Cap.er.24h 120 Mg PO DAILY Reported Furosemide 40 Mg Tablet 1 Tab PO DAILY [novolin R] 25 Units SQ TIDAC [novolin N] 37 Units SQ BIDAFTMEAL Potassium Chloride 10 Meq Tablet.er 10 Meq PO DAILY Pantoprazole Sodium 40 Mg Tablet.dr 1 Tab PO DAILY Atorvastatin Calcium 40 Mg Tablet 1 Tab PO QHS Allopurinol 300 Mg Tablet 1 Tab PO DAILY Vitals/I & O Vital Sign - Last 24 Hours 06/09/16 06/09/16 06/09/16 06/09/16 09:01 11:00 15:00 19:40 Temp 97.4 97.9 98.0 97.4 97.9 98.0 Pulse 75 71 76 78 Resp 20 20 12 B/P 120/63 115/69 125/57 110/60 Pulse Ox 98 97 99 O2 Delivery Room Air Room Air Room Air O2 Flow Rate 06/09/16 06/09/16 06/10/16 20:00 23:00 02:42 Temp 98.0 98.3 98.0 98.3 Pulse 78 74 Resp 20 24 B/P 114/57 109/54 Pulse Ox 99 98 O2 Delivery Room Air Room Air Room Air Intake and Output 06/09/16 06/09/16 06/10/16 15:00 23:00 07:00 Intake Total 720 ml 710 ml Output Total 1500 ml 600 ml 200 ml Balance -780 ml 110 ml -200 ml MERRICK TOURE MD Jun 10, 2016 08:15
[2016-06-10] MEDS ORDERED: FERR-26 PO (08:17)
[2016-06-10] MEDS: INSULIN ASPART 300 UNITS/3 ML INSULN.PEN SQ SCH ×4 (08:26→12:17)
[2016-06-10] MEDS: PANTOPRAZOLE 40 MG TABLET. PO SCH (08:27)
[2016-06-10] MEDS: INSULIN DETEMIR 300 UNITS/3 ML INSULN.PEN. SQ SCH ×2 (08:27→12:15)
[2016-06-10] MEDS: ALLOPURINOL 300 MG TABLET. PO SCH (08:28)
[2016-06-10] MEDS: DILTIAZEM HCL 120 MG CAP.ER.24H PO SCH (08:28)
[2016-06-10] MEDS: POTASSIUM CHLORIDE 10 MEQ TABLET.ER. PO SCH (08:28)
[2016-06-10] MEDS: IV RINGERS,LACTATED 1000ML 1,000 ML IV SCH (08:34)
--- NOTE | 2016-06-10 10:35 | PDOC ---
Subjective: Subjective: No GI complaints. Objective: Objective: Reviewed notes. Vital Signs: Vital Signs Date Time Temp Pulse Resp B/P Pulse Ox O2 Delivery O2 Flow Rate FiO2 06/10/16 08:28 94 121/70 06/10/16 08:00 Room Air 06/10/16 02:42 98.3 24 98 98.3 06/09/16 19:40 Labs: Laboratory Tests Test 06/09/16 11:18 06/09/16 16:56 06/09/16 20:14 06/10/16 06:10 Glucose (Fingerstick) 118mg/dL 77mg/dL 129mg/dL Hemoglobin 8.5g/dL Test 06/10/16 07:16 Glucose (Fingerstick) 101mg/dL Imaging: EGD 06/07/16: watermelon stomach/gastropathy CT A/P 06/07/16: unrevealing for portal HTN, cirrhosis LE US: no convincing evidence of DVT noted PE: GEN: NAD LUNGS: CTAB HEART: RRR ABD: NABS, S/ND/NT NEURO/PSYCH: A & O 3 A/P: Anemia -Hgb stable -h/o GERD on PPI, EGD as above w/ watermelon stomach/AVMs -colonoscopy 2007 w/ hemorrhoids Recent PEs -has discussed IVC, to continue w/o anticoagulation for now -- Note DC plans today, to monitor Hgb w/ PCP. MARIS RYDER Jun 10, 2016 10:35
[2016-06-10 11:00] VITALS: BP 150/62
[2016-06-10] MEDS: FUROSEMIDE 40 MG TABLET PO SCH (12:10)
--- NOTE | 2016-06-10 12:25 | DS ---
DATE OF DISCHARGE: 06/10/2016 CHIEF COMPLAINT: Fatigue. HISTORY OF PRESENT ILLNESS: The patient is a 76-year-old female who was diagnosed with acute pulmonary embolism in March 2016. She was started on Eliquis at that time. There were no DVT's seen in her legs on venous Doppler studies at that time. She had been [facility] to [facility], but had improved and was able to return home. She was being followed in our office and found to have an ongoing anemia. This had worsened when she was seen on the day of admission. She was advised hospitalization for further evaluation. HOSPITAL COURSE: The patient was admitted and seen in consultation by GI and Pulmonary Medicine. Initial hemoglobin was 6.9 and she received 2 units of packed red cells in transfusion. The patient's hemoglobin improved to 8.5 and has remained stable since then. Dr. Mittal performed an EGD on 06/07/2016. This showed multiple AVMs in the gastric area and the patient's bleeding was thought to have occurred from these. CT of the abdomen and pelvis was done, but was unremarkable. Dr. Magdaleno ordered a V/Q scan as a followup from the patient's previous pulmonary emboli. The V/Q scan showed resolving areas of perfusion defects and no new areas of emboli. Venous Dopplers of the patient's legs were again negative for DVT's. The risks and benefits of anticoagulation and/or IVC filter placement were discussed with the patient on several occasions, it was felt that an IVC filter could not definitely be recommended at this time as she has had no DVTs on two different occasions when venous Dopplers were checked. With the multiple AVMs seen on EGD, she is at a risk for some chronic ongoing blood loss. It was decided not to resume her anticoagulation and not to pursue IVC filter placement. The patient appears to understand the risks and benefits of this. If pulmonary emboli were to reoccur then further treatment might be indicated. The patient's other chronic medical conditions including hypertension, chronic kidney disease and diabetes all appears stable and her home medications for these will be continued. The patient states she was already taking iron at home and she is advised to resume this. FINAL DIAGNOSES: 1. Upper gastrointestinal bleed due to gastric arteriovenous malformations. 2. Recent pulmonary emboli, resolving. 3. Diabetes mellitus type 2, insulin-dependent. 4. Hypertension. 5. Chronic venous insufficiency. 6. Chronic kidney disease, stage 3 to 4. DISCHARGE MEDICATIONS: Iron 325 mg daily, atorvastatin 40 mg daily, allopurinol 300 mg daily, Cardizem CD 120 mg daily, furosemide 40 mg daily, losartan 25 mg daily, pantoprazole 40 mg daily, potassium 10 mEq daily. The patient is to resume her home insulins. Her Eliquis 5 mg b.i.d. has been discontinued. FOLLOWUP: With Dr. Moser within 2 weeks. MERRICK TOURE MD DR: JANELL/roge JOB#: [id number] / [id number] LEAH
== END 2016-06-10 12:40 | disposition home or self-care (01) | DRG 378 ==
LOC: 5 SOUTH 13:37
PROVIDERS: ADMIT Family Medicine; ATTEND Family Medicine
PROC: 30233N1 Transfusion of Nonautologous Red Blood Cells into Peripheral Vein, Percutaneous Approach (ICD-10-PCS; principal; 2016-06-06)
PROC: 0DJ08ZZ Inspection of Upper Intestinal Tract, Via Natural or Artificial Opening Endoscopic (ICD-10-PCS; 2016-06-07)
DX: K31.811 Angiodysplasia of stomach and duodenum with bleeding (principal); D62 Acute posthemorrhagic anemia; Z68.42 Body mass index [BMI] 45.0-49.9, adult; N18.4 Chronic kidney disease, stage 4 (severe); E11.22 Type 2 diabetes mellitus with diabetic chronic kidney disease; E11.319 Type 2 diabetes mellitus with unspecified diabetic retinopathy without macular edema; E66.01 Morbid (severe) obesity due to excess calories; E78.00 Pure hypercholesterolemia, unspecified; E78.5 Hyperlipidemia, unspecified; G47.33 Obstructive sleep apnea (adult) (pediatric); G89.29 Other chronic pain; K21.9 Gastro-esophageal reflux disease without esophagitis; K31.9 Disease of stomach and duodenum, unspecified; M10.00 Idiopathic gout, unspecified site; I12.9 Hypertensive chronic kidney disease with stage 1 through stage 4 chronic kidney disease, or unspecified chronic kidney disease; I48.91 Unspecified atrial fibrillation; I87.2 Venous insufficiency (chronic) (peripheral); I87.8 Other specified disorders of veins; Z87.01 Personal history of pneumonia (recurrent); Z79.4 Long term (current) use of insulin; Z80.0 Family history of malignant neoplasm of digestive organs; Z80.1 Family history of malignant neoplasm of trachea, bronchus and lung; Z86.711 Personal history of pulmonary embolism; Z79.899 Other long term (current) drug therapy; Z79.82 Long term (current) use of aspirin
CPT/HCPCS: 36415; 71020; 74176; 78582; 80048; 82274; 82947; 83010; 83036; 85018; 85027; 85045; 85610; 86850; 86900; 86901; 86920; 93970; 96374; A9540; A9558; J1815; J1940; J2704; J7120; P9016; Q9966

== ENCOUNTER → 2016-06-21 | Day surgery (SDC) | payer MEDICARE, OTHER ==
[~2016-06-21] MED LIST changes: +ERGO500012 PO; +FENTANYL PF 100 MCG/2 ML VIAL. IV PRN; +FERR-26 PO; +HYDROMORPHONE 2 MG/ML VIAL. IV PRN; -INSULIN DETEMIR 300 UNITS/3 ML INSULN.PEN. SQ SCH; +IV RINGERS,LACTATED 1000ML 1,000 ML IV SCH; +LIDOCAINE 1% 1 ML SYRINGE. ID PRN; +LIDOCAINE 2% PF Vial for OR 5 ML VIAL. ONE; +MORPHINE SULFATE 2 MG/ML DISP.SYRIN. IV PRN; +ONDANSETRON PF 4 MG/2 ML VIAL. IV PRN; +PROCHLORPERAZINE 10 MG/2 ML VIAL. IV PRN; +PROPOFOL 20 ML IV ONE
[2016-06-21 08:59] VITALS: BP 138/52
== END | disposition home or self-care (01) ==
LOC: ENDOS 06:39
PROVIDERS: ATTEND Internal Medicine Gastroenterology
DX: K64.1 Second degree hemorrhoids (principal); K60.2 Anal fissure, unspecified; M19.90 Unspecified osteoarthritis, unspecified site; E78.00 Pure hypercholesterolemia, unspecified; E11.9 Type 2 diabetes mellitus without complications; I10 Essential (primary) hypertension; D64.9 Anemia, unspecified; E66.9 Obesity, unspecified; I48.91 Unspecified atrial fibrillation; Z83.3 Family history of diabetes mellitus; Z87.39 Personal history of other diseases of the musculoskeletal system and connective tissue; Z87.442 Personal history of urinary calculi
CPT/HCPCS: 45378; 82947; J2704

== ENCOUNTER → 2016-07-15 | Outpatient (CLI) | payer MEDICARE, OTHER ==
[2016-06-21 08:59] VITALS: BP 138/52
[~2016-07-15] MED LIST changes: -FENTANYL PF 100 MCG/2 ML VIAL. IV PRN; -HYDROMORPHONE 2 MG/ML VIAL. IV PRN; -IV RINGERS,LACTATED 1000ML 1,000 ML IV SCH; -LIDOCAINE 1% 1 ML SYRINGE. ID PRN; -LIDOCAINE 2% PF Vial for OR 5 ML VIAL. ONE; -MORPHINE SULFATE 2 MG/ML DISP.SYRIN. IV PRN; -ONDANSETRON PF 4 MG/2 ML VIAL. IV PRN; -PROCHLORPERAZINE 10 MG/2 ML VIAL. IV PRN; -PROPOFOL 20 ML IV ONE
--- NOTE | 2016-07-15 15:19 | RAD ---
Right lower extremity venous ultrasound, 07/15/2016 : History: Right leg edema Duplex evaluation including grayscale, color flow and spectral Doppler analysis was performed. The femoral and popliteal veins show no filling defects to suggest DVT. The visualized calf veins are unremarkable. IMPRESSION: There is no sonographic evidence of deep vein thrombosis in the right lower extremity
== END | disposition home or self-care (01) ==
LOC: US 13:52
PROVIDERS: ATTEND Family Medicine
DX: R60.0 Localized edema (principal)
CPT/HCPCS: 93971

== ENCOUNTER → 2016-09-23 | Outpatient (CLI) | payer MEDICARE, OTHER ==
[2016-06-21 08:59] VITALS: BP 138/52
[~2016-09-23] MED LIST changes: +DILT120C80 PO; -DILT120C97 PO; -ERGO500012 PO; +ERGO500027 PO; -POTA10TA10 PO; +POTA10TA12 PO
--- NOTE | 2016-09-23 14:55 | CARD ---
APPROVED REPORT EXAM: Two-dimensional and M-mode echocardiogram with Doppler and color Doppler. Other Information Quality : Average Rhythm : NSR INDICATION Pulmonary Hypertention 2D DIMENSIONS RVDd3.4 (2.9-3.5cm)Left Atrium(2D)4.0 (1.6-4.0cm) IVSd1.1 (0.7-1.1cm)Aortic Root(2D)3.0 (2.0-3.7cm) LVDd5.0 (3.9-5.9cm)LVOT Diameter2.0 (1.8-2.4cm) PWd1.1 (0.7-1.1cm)LVDs3.2 (2.5-4.0cm) FS (%) 35.5 %SV75.5 ml LVEF(%)64.7 (>50%) Aortic Valve AoV Peak Thomas.173.6cm/sAoV VTI32.2cm AO Peak GR.12.0mmHgLVOT Peak Thomas.134.4cm/s LVOT VTI 27.33cmAO Mean GR.7mmHg SHERMAN (VMAX)2.61vz2SGI (VTI)2.78cm2 Mitral Valve MV E Gyhntarj17.0cm/sMV DECEL [id number] MV A Wuwbqslx10.9cm/sMV E Mean Gr.2mmHg MV PWK61msG/A Ratio1.0 MV A Xycufwzi053exFEG (PHT)3.74cm2 TDI E/Lateral E'6.8E/Medial E'8.2 Pulmonary Valve PV Peak Swybsjlr546.9cm/sPV Peak Grad.7mmHg Tricuspid Valve TR P. Jtqnqlob382mw/sRAP XIWCGOVK2fhPv TR Peak Gr.30xvBaLBCN63yqFu Pulmonary Vein S1 Zbwxlusb72.5cm/sD2 Ebanqemy33.2cm/s LEFT VENTRICLE The left ventricle is normal size. There is normal left ventricular wall thickness. Left ventricle sy stolic function is normal. The Ejection Fraction is 60-65%. There is normal LV segmental wall motion. The left ventricular diastolic function and filling is normal for age. There is no ventricular septa l defect visualized. RIGHT VENTRICLE The right ventricle is normal size. The right ventricular systolic function is normal. ATRIA The left atrium size is normal. The right atrium size is normal. The interatrial septum is intact wit h no evidence for an atrial septal defect or patent foramen ovale as noted on 2-D or Doppler imaging. AORTIC VALVE The aortic valve is normal in structure and function. The aortic valve is trileaflet. Doppler and Col or Flow revealed no significant aortic regurgitation. There is no significant aortic valvular stenosi s. MITRAL VALVE The mitral valve is normal in structure and function. There is no evidence of mitral valve prolapse. There is no mitral valve stenosis. Doppler and Color Flow revealed trace mitral valve regurgitation. TRICUSPID VALVE The tricuspid valve is normal in structure and function. Doppler and Color Flow revealed mild tricusp id regurgitation. The PA pressure was estimated at 33 mmHg. There is no tricuspid valve stenosis. PULMONIC VALVE The pulmonic valve is not well visualized. Doppler and Color Flow revealed trace pulmonic valvular re gurgitation. There is no pulmonic valvular stenosis. GREAT VESSELS The aortic root is normal in size. The ascending aorta is normal in size. Normal pulmonary venous lexy w (Doppler). The IVC is normal in size and collapses >50% with inspiration. PERICARDIAL EFFUSION There is no evidence of significant pericardial effusion. Critical Notification Critical Value: No <Conclusion> The left ventricle is normal size. Left ventricle systolic function is normal. The Ejection Fraction is 60-65%. There is normal left ventricular wall thickness. There is no significant aortic valvular stenosis. Doppler and Color Flow revealed no significant aortic regurgitation. Doppler and Color Flow revealed trace mitral valve regurgitation. Doppler and Color Flow revealed mild tricuspid regurgitation. The PA pressure was estimated at 33 mmHg.
== END | disposition home or self-care (01) ==
LOC: ECHO 10:19
PROVIDERS: ATTEND Internal Medicine Cardiovascular Disease
DX: I27.2 Other secondary pulmonary hypertension (principal)
CPT/HCPCS: 93306

== ENCOUNTER → 2018-02-16 | Outpatient (CLI) | payer MEDICARE, OTHER ==
[2017-10-24 16:01] VITALS: BP 116/73
[~2018-02-16] MED LIST changes: -FERR-26 PO; +FERR325T14 PO; -LOSA1TAB16 PO; -LOSA1TAB17 PO; +LOSA1TAB19 PO; +LOSA1TAB22 PO; +WARF7.5T48 PO
--- NOTE | 2018-02-16 15:46 | RAD ---
Chest, 2 views, 02/16/2018: HISTORY: Shortness of breath, pulmonary emboli Comparison is made to a study from 10/27/2017. The heart size and pulmonary vascularity are normal. No pulmonary infiltrate is seen. There is no evidence of significant pleural fluid. There is moderate hypertrophic spurring in the spine with bony bridging at several levels. IMPRESSION: No acute cardiopulmonary abnormality is detected. Electronically signed by: Denver Mobley MD (02/16/2018 3:43 PM) [facility]
--- NOTE | 2018-02-16 15:53 | RAD ---
Ventilation/perfusion lung scan, 02/16/2018: HISTORY: Shortness of breath, previous pulmonary emboli The ventilation study was performed utilizing 25 mCi of xenon-133. Activity in the lungs is mildly heterogeneous. There is fairly good washout of the xenon from both lungs. Perfusion imaging was performed following IV injection of 6.6 mCi of technetium 99m MAA. There is a wedge shaped peripheral perfusion defect in the right middle lobe which appears unchanged since 10/27/2017. No new perfusion abnormality is seen. IMPRESSION: 1. Chronic right middle lobe perfusion defect related to a previous episode of pulmonary emboli. 2. No new abnormality is detected. Electronically signed by: Denver Mobley MD (02/16/2018 3:50 PM) [facility]
== END | disposition home or self-care (01) ==
LOC: NM 08:11
PROVIDERS: ATTEND Internal Medicine Critical Care Medicine
DX: R06.02 Shortness of breath (principal); R94.39 Abnormal result of other cardiovascular function study; Z86.711 Personal history of pulmonary embolism
CPT/HCPCS: 71046; 78582; 96374; A9540; A9558

== ENCOUNTER → 2018-06-25 | Outpatient (CLI) | payer MEDICARE ==
[2017-10-24 16:01] VITALS: BP 116/73
[~2018-06-25] MED LIST changes: -DILT120C80 PO; +DILT120C85 PO
--- NOTE | 2018-06-25 09:55 | CARD ---
MR#: [id number] Date of Study: 06/25/2018 Ordering Physician: MAURICIO ROMO, Referring Physician: MAURICIO ROMO, Tech: Lorene Kenny LAVINIA APPROVED REPORT EXAM: Two-dimensional and M-mode echocardiogram with Doppler and color Doppler. Other Information Quality : Technically LimitedHR: 83bpm Rhythm : NSRTechnically limited study due to body habitus. INDICATION Hypertension/HCVD RISK FACTORS Hypertension Obesity Diabetes 2D DIMENSIONS RVDd3.6 (2.9-3.5cm)Left Atrium(2D)3.5 (1.6-4.0cm) IVSd1.0 (0.7-1.1cm)Aortic Root(2D)2.9 (2.0-3.7cm) LVDd4.4 (3.9-5.9cm)LVOT Diameter1.9 (1.8-2.4cm) PWd1.2 (0.7-1.1cm)LVDs3.1 (2.5-4.0cm) FS (%) 28.6 %SV47.5 ml LVEF(%)55.4 (>50%) M-Mode DIMENSIONS Left Atrium(MM)4.16 (2.5-4.0cm)Aortic Root3.06 (2.2-3.7cm) Aortic Valve AoV Peak Thomas.151.7cm/sAoV VTI31.6cm AO Peak GR.9.2mmHgLVOT Peak Thomas.137.2cm/s AO Mean GR.6mmHgAVA (VMAX)2.50cm2 SHERMAN (VTI)2.50cm2 Mitral Valve MV E Accsnela48.7cm/sMV DECEL HXSM926ew MV A Osikaqul949.7cm/sE/A Ratio0.8 Pulmonary Valve PV Peak Cgwuqzxe540.2cm/s Tricuspid Valve TR P. Vilybqij377pf/sRAP DAEYWBRQ1awEu TR Peak Gr.68vcAkKPCM01fyKi LEFT VENTRICLE The left ventricle is normal size. There is normal left ventricular wall thickness. The left ventricu lar systolic function is normal. The Ejection Fraction is 55-60%. There is normal LV segmental wall m otion. Transmitral Doppler flow pattern is Grade I-abnormal relaxation pattern. RIGHT VENTRICLE The right ventricle is normal size. There is normal right ventricular wall thickness. The right ventr icular systolic function is normal. ATRIA The left atrium size is normal. The right atrium size is normal. The interatrial septum is intact wit h no evidence for an atrial septal defect or patent foramen ovale as noted on 2-D or Doppler imaging. AORTIC VALVE The aortic valve is mildly calcified. The aortic valve is trileaflet. Doppler and Color Flow revealed no significant aortic regurgitation. There is no significant aortic valvular stenosis. There is no a ortic valvular vegetation. MITRAL VALVE The mitral valve is normal in structure and function. There is no evidence of mitral valve prolapse. There is no mitral valve stenosis. Doppler and Color Flow revealed no mitral valve regurgitation note d. TRICUSPID VALVE The tricuspid valve is normal in structure and function. Doppler and Color Flow revealed trace to mil d tricuspid regurgitation. The PA pressure was estimated at 35 mmHg. There is no tricuspid valve prol apse or vegetation. There is no tricuspid valve stenosis. PULMONIC VALVE The pulmonic valve is not well visualized. GREAT VESSELS The aortic root is normal in size. The ascending aorta is normal in size. The IVC is normal in size a nd collapses >50% with inspiration. PERICARDIAL EFFUSION There is no evidence of significant pericardial effusion. Critical Notification Critical Value: No <Conclusion> The left ventricular systolic function is normal. The Ejection Fraction is 55-60%. There is normal LV segmental wall motion. Transmitral Doppler flow pattern is Grade I-abnormal relaxation pattern. Trace to mild tricuspid regurgitation. The PA pressure was estimated at 35 mmHg. There is no evidence of significant pericardial effusion. Signed by : Basil Caldwell, Electronically Approved : 06/25/2018 09:55:26
== END | disposition home or self-care (01) ==
LOC: ECHO 08:12
PROVIDERS: ATTEND Internal Medicine Cardiovascular Disease
DX: I27.20 Pulmonary hypertension, unspecified (principal); I10 Essential (primary) hypertension; E11.9 Type 2 diabetes mellitus without complications; E66.9 Obesity, unspecified
CPT/HCPCS: 93306

== ENCOUNTER 2018-08-08 15:32 | Emergency (ER) | payer MEDICARE ==
[~2018-08-08] VITALS: Ht 162.6 cm; Wt 124.3 kg
[2018-08-08] MEDS ORDERED: DIPHTH,PERTUSS(ACELL),TET TOX 0.5 ML DISP.SYRIN. VAX IM ONE (16:00)
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
[2018-08-08 17:20] VITALS: BP 141/63
== END 2018-08-08 18:02 | disposition home or self-care (01) ==
LOC: ER 15:32
DX: S92.514A Nondisplaced fracture of proximal phalanx of right lesser toe(s), initial encounter for closed fracture (principal); M79.671 Pain in right foot; M79.672 Pain in left foot; M25.562 Pain in left knee; I89.0 Lymphedema, not elsewhere classified; E11.9 Type 2 diabetes mellitus without complications; I10 Essential (primary) hypertension; E78.00 Pure hypercholesterolemia, unspecified; Z86.718 Personal history of other venous thrombosis and embolism; Z79.01 Long term (current) use of anticoagulants; V43.52XA Car driver injured in collision with other type car in traffic accident, initial encounter; Y93.89 Activity, other specified; Y92.410 Unspecified street and highway as the place of occurrence of the external cause; Y99.8 Other external cause status
CPT/HCPCS: 73562; 73590; 73630; 90471; 90715; 99284

== ENCOUNTER 2018-12-24 14:24 | Inpatient (IN) | payer MEDICARE ==
[~2018-12-24] VITALS: Ht 160 cm; Wt 122.1 kg
[~2018-12-24 14:24] MED LIST changes: -DILT120C85 PO; +DILT120C99 PO; -PANT40TA5 PO; +PANT40TA77 PO
[2018-12-24] MEDS ORDERED: fentaNYL PF VIAL 100 MCG/2 ML VIAL IM ONE (16:30)
--- NOTE | 2018-12-24 16:49 | RAD ---
AP view of the pelvis and lateral view of the left hip Clinical indications: Fall. Pain. FINDINGS: No acute fracture or dislocation or lytic process is seen. No diastases of the symphysis pubis or either SI joint is seen. IMPRESSION: No acute fracture. Electronically signed by: Russ Knapp MD (12/24/2018 4:46 PM) [id number]
[2018-12-24] MEDS ORDERED: MORPHINE SULFATE 10 MG/ML VIAL. IV ONE (17:00)
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
--- NOTE | 2018-12-24 19:38 | PHYS DOC ---
Past Medical History Past Medical History: Diabetes-Type II, DVT, High Cholesterol, Hypertension, Pneumonia, Other Additional Past Medical Histor: PE, lymphedema (DESHAWN OWUSU APRN) Past Surgical History: Other Additional Past Surgical Histo: chest while infant/TUBES IN LUNGS (DESHAWN OWUSU APRN) Alcohol Use: None Drug Use: None (DESHAWN OWUSU APRN) Adult General Chief Complaint Chief Complaint: HIP PAIN HPI HPI Patient is a 78 year old female with history of diabetes type 2, hypertension, high cholesterol, bilateral lower extremity lymphedema, who presents to the ED today complaining of left hip pain described as sharp and intermittent rated at 10 out of 10 that began 4 days ago after she fell landing on her left hip. Patient denies any loss of consciousness. Denies hitting her head on the ground. She states she's been unable to ambulate comfortably since she fell. She states today's symptoms got worse and she was unable to bear weight the left lower extremity. (DESHAWN OWUSU APRN) Review of Systems Review of Systems Constitutional: Denies fever or chills [] Eyes: Denies change in visual acuity, redness, or eye pain [] HENT: Denies nasal congestion or sore throat [] Respiratory: Denies cough or shortness of breath [] Cardiovascular: No additional information not addressed in HPI [] GI: Denies abdominal pain, nausea, vomiting, bloody stools or diarrhea [] : Denies dysuria or hematuria [] Musculoskeletal: Reports left hip pain Integument: Denies rash or skin lesions [] Neurologic: Denies headache, focal weakness or sensory changes [] All other systems were reviewed and found to be within normal limits, except as documented in this note. (DESHAWN OWUSU APRN) Current Medications Current Medications Current Medications Medications (Trade) Dose Ordered Sig/Angy Start Time Stop Time Status Last Admin Dose Admin Acetaminophen (Tylenol) 650 mg PRN Q4HRS PRN 12/24/18 19:45 12/25/18 19:44 Fentanyl Citrate (Fentanyl 2ml Vial) 50 mcg 1X ONCE 12/24/18 16:30 12/24/18 16:31 Cancel Morphine Sulfate (Morphine Sulfate) 4 mg PRN Q2HR PRN 12/24/18 19:45 12/25/18 19:44 Ondansetron HCl (Zofran) 4 mg PRN Q8HRS PRN 12/24/18 19:45 12/25/18 19:44 (DANICA ABRAMS MD) Allergies Allergies Allergies Coded Allergies Type Severity Reaction Last Updated Verified No Known Drug Allergies 10/24/17 No (DANICA ABRAMS MD) Physical Exam Physical Exam Constitutional: Well developed, well nourished, no acute distress, non-toxic appearance. [] HENT: Normocephalic, atraumatic, bilateral external ears normal, oropharynx moist, no oral exudates, nose normal. [] Eyes: PERRLA, EOMI, conjunctiva normal, no discharge. [] Neck: Normal range of motion, no tenderness, supple, no stridor. [] Cardiovascular:Heart rate regular rhythm, no murmur [] Lungs & Thorax: Bilateral breath sounds clear to auscultation [] Abdomen: Bowel sounds normal, soft, no tenderness, no masses, no pulsatile masses. [] Skin: Warm, dry, no erythema, no rash. [] Back: No tenderness, no CVA tenderness. [] Extremities: Morbidly obese patient. Left hip with no obvious deformity, tenderness on palpation of the left inner hip region. Limited range of motion to the left lower extremity specifically hip partly due to her weight. Patient has notable chronic bilateral lower extremity lymphedema. +1 bilateral pedal pulses. Cap refill less than 2 seconds bilateral toes. Sensation intact bilat eral lower extremities. Neurologic: Alert and oriented X 3, normal motor function, normal sensory function, no focal deficits noted. [] Psychologic: Affect normal, judgement normal, mood normal. [] (DESHAWN OWUSU APRN) Current Patient Data Vital Signs Vital Signs Date Time Temp Pulse Resp B/P (MAP) Pulse Ox O2 Delivery O2 Flow Rate FiO2 12/24/18 20:14 87 22 195/78 (117) 98 Room Air 12/24/18 16:15 98.0 98.0 (DANICA ABRAMS MD) EKG EKG [] (DESHAWN OWUSU APRN) Radiology/Procedures Radiology/Procedures []PROCEDURE: CT LOWER EXTREMITY WO LEFT PQRS Compliance statement: One or more of the following individualized dose reduction techniques were utilized for this examination: 1. Automated exposure control. 2. Adjustment of the mA and/or kV according to patient size. 3. Use of iterative reconstruction technique. Indication:Fall. Left hip pain. TECHNIQUE: CT left hip joint with IV contrast with multiplanar reformats. COMPARISON: None FINDINGS: Small calcific densities seen anterior to the greater trochanter of the femur which may represent an erosion fracture. Small intra-articular calcific density is seen adjacent to the fovea of the femur. Mild hip joint osteoarthritis. No joint effusion. No enlarged inguinal or pelvic lymph nodes. Visualized bowel is within normal limits. Visualized urinary bladder is within normal limits. Uterus is present. IMPRESSION: 1. Calcific density adjacent to the greater trochanter may present calcific tendinitis or an avulsion fracture. No gross femoral fracture. 2. Loose body in the joint space. Electronically signed by: Mario Roy DO (12/24/2018 5:17 PM) [facility] DICTATED and SIGNED BY: MARIO ROY DO DATE: 12/24/18 1717 PROCEDURE: HIP LEFT 1 VIEW WITH PELVIS AP view of the pelvis and lateral view of the left hip Clinical indications: Fall. Pain. FINDINGS: No acute fracture or dislocation or lytic process is seen. No diastases of the symphysis pubis or either SI joint is seen. IMPRESSION: No acute fracture. Electronically signed by: Nilo Knapp MD (12/24/2018 4:46 PM) [id number] DICTATED and SIGNED BY: NILO KNAPP MD DATE: 12/24/18 1646 (DESHAWN OWUSU APRN) Course & Med Decision Making Course & Med Decision Making Pertinent Labs and Imaging studies reviewed. (See chart for details) This is a 78-year-old female patient who presents to the ED today with left hip pain status post falling 4 days ago. Left hip x-rays interpreted by radiologist were negative for any acute findings. Patient is unable to bear weight on the left lower extremity. We did a CAT scan, CAT scan noted for calcific density adjacent to the greater trochanter may present calcific tendinitis or an avulsion fracture. No gross femoral fracture. Loose body in the joint space. Spoke with Dr. Moser who accepted patient for admission Routine consult placed for orthopedic doctor (DESHAWN OWUSU APRN) Course & Med Decision Making Staff Physician Addendum: I was working in the ER during the course of this patient's visit. I was available for consultation as needed, but I was not directly involved in the care of this patient. (DANICA ABRAMS MD) Dragon Disclaimer Dragon Disclaimer This electronic medical record was generated, in whole or in part, using a voice recognition dictation system. (DESHAWN OWUSU APRN) Departure Departure Impression: Primary Impression: Left hip pain Additional Impression: Fall Disposition: ADMITTED INPATIENT Condition: STABLE Referrals: HARPREET MOSER MD (PCP) Problem Qualifiers Additional Impression: Fall Encounter type: initial encounter Qualified Codes: W19.XXXA - Unspecified fall, initial encounter DESHAWN OWUSU APRN Dec 24, 2018 19:38 DANICA ABRAMS MD Dec 25, 2018 01:24
[2018-12-24] MEDS ORDERED: ONDANSETRON PF 4 MG/2 ML VIAL. IV PRN (19:45)
[2018-12-24] MEDS ORDERED: ACETAMINOPHEN 325 MG TABLET. PO PRN (19:45)
[2018-12-24] MEDS ORDERED: MORPHINE SULFATE 4 MG/ML VIAL. IV PRN (19:45)
--- NOTE | 2018-12-24 21:04 | NUR ---
The patient, MERRICK ARRIAGA, 78 y/o, F admitted by HARPREET ZAMORA MD, was given written information regarding hospital policies, unit procedures and contact persons. RN received report from Jaspreet NATARAJAN in ED @ 2103. Patient was transported via gurney from the ED to room 404 @ 2114. RN performed a head to toe assessment at that time, VSS, afebrile, and pain rated a 0/10. Bed is in lowest locked position and call light is within reach. Valuables were checked and left in the room with the patient. RN will continue to monitor patient closely.
[2018-12-24 21:54] VITALS: BP 152/72
[2018-12-24 23:05] VITALS: BP 143/68
[2018-12-25 02:42] LABS: BILIRUBIN,URINE NEGATIVE (NEG); CLARITY,URINE CLEAR; COLOR,URINE YELLOW; NITRITE,URINE NEGATIVE (NEG); PROTEIN,URINE 30 mg/dL (NEG-TRACE); UROBILINOGEN,URINE 0.2 mg/dL (0.2 mg/dL)
[2018-12-25 02:47] LABS: BACTERIA,URINE MOD /HPF (0-FEW); RBC,URINE 0 /HPF (0-2); SQUAMOUS EPITHELIAL CELL,UR MOD /LPF; WBC,URINE TNTC /HPF (0-4); YEAST,URINE PRESENT /HPF
[2018-12-25 03:00] VITALS: BP 159/73
[2018-12-25 07:00] VITALS: BP 159/57
[2018-12-25] MEDS: PANTOPRAZOLE 40 MG TABLET.DR. PO SCH (07:16)
[2018-12-25] MEDS: INSULIN LISPRO 300 UNITS/3 ML VIAL. SQ SCH ×3 (08:00→17:00)
[2018-12-25] MEDS: ALLOPURINOL 300 MG TABLET. PO SCH (08:25)
[2018-12-25] MEDS: LOSARTAN POTASSIUM 25 MG TABLET. PO SCH (08:25)
[2018-12-25] MEDS: FUROSEMIDE 40 MG TABLET. PO SCH (08:25)
[2018-12-25] MEDS: FERROUS SULFATE 325 MG TABLET. PO SCH (08:25)
[2018-12-25] MEDS: POTASSIUM CHLORIDE 10 MEQ TABLET.ER. PO SCH ×2 (08:26→20:02)
[2018-12-25] MEDS: INSULIN GLARGINE SYRINGE. SQ SCH ×2 (08:29→21:24)
[2018-12-25 08:31] LABS: BASO % 1 % (0-3); EOS # 0.3 x10^3/uL (0.0-0.7); EOS % 5 % (0-3); HEMATOCRIT 33.7 % (36.0-47.0); LYMPH # 1.1 x10^3/uL (1.0-4.8); LYMPH % 23 % (24-48); MEAN CORPUSCULAR HEMOGLOBIN 27 pg (25-35); MEAN CORPUSCULAR HGB CONC 33 g/dL (31-37); MEAN CORPUSCULAR VOLUME 84 fL (79-100); MONO # 0.4 x10^3/uL (0.0-1.1); MONO % 8 % (0-9); NEUT # 3.2 x10^3/uL (1.8-7.7); NEUT % 63 % (31-73); PLATELET COUNT 338 x10^3/uL (140-400); RED BLOOD COUNT 4.02 x10^6/uL (3.50-5.40); RED CELL DISTRIBUTION WIDTH 17.9 % (11.5-14.5)
[2018-12-25 08:36] LABS: PROTHROMBIN TIME PATIENT 17.9 SEC (11.7-14.0)
[2018-12-25 08:38] LABS: CREATININE 1.3 mg/dL (0.6-1.0); GFR 39.7; POTASSIUM 3.8 mmol/L (3.5-5.1)
--- NOTE | 2018-12-25 08:55 | PDOC1 ---
History and Physical Date of Admission Date of Admission 12/24/18 Identification/Chief Complaint Chief Complaint fall, left hip pain Source Source: Chart review, Patient History of Present Illness History of Present Illness She fell at home and has a possible left hip avulsion fracture, admitted for pain control, bedrest, ortho consult, she has multiple comorbidities Past Medical History Cardiovascular: AFIB, HTN, Hyperlipidemia Pulmonary: Pulmonary embolus, Other CENTRAL NERVOUS SYSTEM: Other GI: GI bleed, Other Heme/Onc: Anemia NOS Hepatobiliary: No pertinent hx Psych: No pertinent hx Rheumatologic: No pertinent hx Infectious disease: No pertinent hx Renal/: Chronic renal insuff Endocrine: Diabetes, Other (Vitamin D def) Past Surgical History Past Surgical History: Cataract Removal, Tonsillectomy, Other (lung surgery as a child) Family History Family History: Cancer, Other Social History Smoke: No ALCOHOL: none Drugs: None Current Medications Current Medications Current Medications Medications (Trade) Dose Ordered Sig/Angy Start Time Stop Time Status Last Admin Dose Admin Acetaminophen (Tylenol) 650 mg PRN Q4HRS PRN 12/24/18 19:45 12/25/18 19:44 Acetaminophen/ Hydrocodone Bitart (Lortab 5/325) 2 tab PRN Q4HRS PRN 12/24/18 23:45 Allopurinol (Zyloprim) 300 mg DAILY 12/25/18 09:00 12/25/18 08:25 300 MG Atorvastatin Calcium (Lipitor) 40 mg QHS 12/25/18 21:00 Diltiazem HCl (Cardizem 24hr Cd) 120 mg DAILY 12/25/18 09:00 12/25/18 08:26 120 MG Ergocalciferol (Vitamin D2) 50,000 unit WEEKLY 12/31/18 09:00 Fentanyl Citrate (Fentanyl 2ml Vial) 50 mcg 1X ONCE 12/24/18 16:30 12/24/18 16:31 Cancel Ferrous Sulfate (Feosol) 325 mg DAILY 12/25/18 09:00 12/25/18 08:25 325 MG Furosemide (Lasix) 40 mg DAILY 12/25/18 09:00 12/25/18 08:25 40 MG Influenza Virus Vaccine Quadrival (Afluria Quad 2019-20 (3yr Up) Syringe) 0.5 ml ONCE ONCE 12/25/18 09:00 12/25/18 09:01 Insulin Glargine (Lantus Syringe) 37 unit BID 12/25/18 09:00 12/25/18 08:29 37 UNIT Insulin Human Lispro (HumaLOG) 25 units TIDWMEALS 12/25/18 08:00 Losartan Potassium (Cozaar) 25 mg DAILY 12/25/18 09:00 12/25/18 08:25 25 MG Morphine Sulfate (Morphine Sulfate) 4 mg PRN Q2HR PRN 12/24/18 19:45 12/25/18 19:44 Ondansetron HCl (Zofran) 4 mg PRN Q8HRS PRN 12/24/18 19:45 12/25/18 19:44 Pantoprazole Sodium (Protonix) 40 mg DAILYAC 12/25/18 07:30 12/25/18 07:16 40 MG Potassium Chloride (Klor-Con) 10 meq BID 12/25/18 09:00 12/25/18 08:26 10 MEQ Warfarin Sodium (Coumadin Per Physician) 1 each PRN DAILY PRN 12/25/18 07:30 Warfarin Sodium (Coumadin) 4 mg DAILY16 12/25/18 16:00 UNV Allergies Allergies Allergies Coded Allergies Type Severity Reaction Last Updated Verified No Known Drug Allergies 10/24/17 No ROS Review of System CONSTITUTIONAL: No fever or chills EYES: No recent changes SKIN: No rash or itching CARDIOVASCULAR: No chest pain, syncope, palpitations, or edema RESPIRATORY: No SOB or cough GASTROINTESTINAL: No nausea, vomiting or abdominal pain NEUROLOGICAL: No headaches or weakness ENDOCRINE: No cold or heat intolerance GENITOURINARY: + dysuria MUSCULOSKELETAL: see HPI LYMPHATICS: No enlarged lymph nodes PSYCHIATRIC: No anxiety or depression Physical Exam Physical Exam GEN.: No apparent distress. Alert and oriented. HEENT: Head is normocephalic, atraumatic NECK: Supple. LUNGS: Clear to auscultation. HEART: RRR, S1, S2 present. Peripheral pulses intact ABDOMEN: Soft, nontender. Positive bowel sounds. EXTREMITIES: Without any cyanosis. NEUROLOGIC: Normal speech, normal tone PSYCHIATRIC: Normal affect, normal mood. SKIN: No ulcerations MS: tenderness of left hip Vitals Vitals Vital Signs Date Time Temp Pulse Resp B/P (MAP) Pulse Ox O2 Delivery O2 Flow Rate FiO2 12/25/18 08:26 82 159/57 12/25/18 03:00 97.8 98 97.8 12/24/18 21:15 Room Air 12/24/18 20:44 22 Labs Labs Laboratory Tests Test 12/24/18 21:46 12/25/18 01:10 12/25/18 07:25 Glucose (Fingerstick) 179 mg/dL (70-99) Urine Collection Type Unknown Urine Color Yellow Urine Clarity Clear Urine pH 6.0 Urine Specific [place] 1.020 Urine Protein 30 mg/dL (NEG-TRACE) Urine Glucose (UA) Negative mg/dL (NEG) Urine Ketones (Stick) Negative mg/dL (NEG) Urine Blood Negative (NEG) Urine Nitrite Negative (NEG) Urine Bilirubin Negative (NEG) Urine Urobilinogen Dipstick 0.2 mg/dL (0.2 mg/dL) Urine Leukocyte Esterase Moderate (NEG) Urine RBC 0 /HPF (0-2) Urine WBC Tntc /HPF (0-4) Urine Squamous Epithelial Cells Mod /LPF Urine Bacteria Mod /HPF (0-FEW) Urine Mucus Slight /LPF Urine Yeast Present /HPF White Blood Count 5.0 x10^3/uL (4.0-11.0) Red Blood Count 4.02 x10^6/uL (3.50-5.40) Hemoglobin 11.0 g/dL (12.0-15.5) Hematocrit 33.7 % (36.0-47.0) Mean Corpuscular Volume 84 fL (79-100) Mean Corpuscular Hemoglobin 27 pg (25-35) Mean Corpuscular Hemoglobin Concent 33 g/dL (31-37) Red Cell Distribution Width 17.9 % (11.5-14.5) Platelet Count 338 x10^3/uL (140-400) Neutrophils (%) (Auto) 63 % (31-73) Lymphocytes (%) (Auto) 23 % (24-48) Monocytes (%) (Auto) 8 % (0-9) Eosinophils (%) (Auto) 5 % (0-3) Basophils (%) (Auto) 1 % (0-3) Neutrophils # (Auto) 3.2 x10^3/uL (1.8-7.7) Lymphocytes # (Auto) 1.1 x10^3/uL (1.0-4.8) Monocytes # (Auto) 0.4 x10^3/uL (0.0-1.1) Eosinophils # (Auto) 0.3 x10^3/uL (0.0-0.7) Basophils # (Auto) 0.0 x10^3/uL (0.0-0.2) Prothrombin Time 17.9 SEC (11.7-14.0) Prothromb Time International Ratio 1.5 (0.8-1.1) Sodium Level 142 mmol/L (136-145) Potassium Level 3.8 mmol/L (3.5-5.1) Chloride Level 106 mmol/L (98-107) Carbon Dioxide Level 27 mmol/L (21-32) Anion Gap 9 (6-14) Blood Urea Nitrogen 21 mg/dL (7-20) Creatinine 1.3 mg/dL (0.6-1.0) Estimated GFR (Cockcroft-Gault) 39.7 Glucose Level 159 mg/dL (70-99) Calcium Level 9.0 mg/dL (8.5-10.1) Laboratory Tests Test 12/24/18 21:46 12/25/18 01:10 12/25/18 07:25 Glucose (Fingerstick) 179 mg/dL (70-99) Urine Collection Type Unknown Urine Color Yellow Urine Clarity Clear Urine pH 6.0 Urine Specific [place] 1.020 Urine Protein 30 mg/dL (NEG-TRACE) Urine Glucose (UA) Negative mg/dL (NEG) Urine Ketones (Stick) Negative mg/dL (NEG) Urine Blood Negative (NEG) Urine Nitrite Negative (NEG) Urine Bilirubin Negative (NEG) Urine Urobilinogen Dipstick 0.2 mg/dL (0.2 mg/dL) Urine Leukocyte Esterase Moderate (NEG) Urine RBC 0 /HPF (0-2) Urine WBC Tntc /HPF (0-4) Urine Squamous Epithelial Cells Mod /LPF Urine Bacteria Mod /HPF (0-FEW) Urine Mucus Slight /LPF Urine Yeast Present /HPF White Blood Count 5.0 x10^3/uL (4.0-11.0) Red Blood Count 4.02 x10^6/uL (3.50-5.40) Hemoglobin 11.0 g/dL (12.0-15.5) Hematocrit 33.7 % (36.0-47.0) Mean Corpuscular Volume 84 fL (79-100) Mean Corpuscular Hemoglobin 27 pg (25-35) Mean Corpuscular Hemoglobin Concent 33 g/dL (31-37) Red Cell Distribution Width 17.9 % (11.5-14.5) Platelet Count 338 x10^3/uL (140-400) Neutrophils (%) (Auto) 63 % (31-73) Lymphocytes (%) (Auto) 23 % (24-48) Monocytes (%) (Auto) 8 % (0-9) Eosinophils (%) (Auto) 5 % (0-3) Basophils (%) (Auto) 1 % (0-3) Neutrophils # (Auto) 3.2 x10^3/uL (1.8-7.7) Lymphocytes # (Auto) 1.1 x10^3/uL (1.0-4.8) Monocytes # (Auto) 0.4 x10^3/uL (0.0-1.1) Eosinophils # (Auto) 0.3 x10^3/uL (0.0-0.7) Basophils # (Auto) 0.0 x10^3/uL (0.0-0.2) Prothrombin Time 17.9 SEC (11.7-14.0) Prothromb Time International Ratio 1.5 (0.8-1.1) Sodium Level 142 mmol/L (136-145) Potassium Level 3.8 mmol/L (3.5-5.1) Chloride Level 106 mmol/L (98-107) Carbon Dioxide Level 27 mmol/L (21-32) Anion Gap 9 (6-14) Blood Urea Nitrogen 21 mg/dL (7-20) Creatinine 1.3 mg/dL (0.6-1.0) Estimated GFR (Cockcroft-Gault) 39.7 Glucose Level 159 mg/dL (70-99) Calcium Level 9.0 mg/dL (8.5-10.1) VTE Prophylaxis Ordered VTE Prophylaxis Devices: No VTE Pharmacological Prophylaxi: Yes Assessment/Plan Assessment/Plan Fall at home with left hip pain, unable to ambulate - possible avulsion fracture - ortho consult, PT/OT, diclofenac patch, ice possible UTI - Rocephin for now multiple comorbidities - continue home meds, add SSI Pan MICHAEL MD Dec 25, 2018 08:55
[2018-12-25] MEDS ORDERED: FLU VAX QS 2019-20 (36MOS+)/PF 0.5 ML SYRINGE. VAX IM ONE (09:00)
[2018-12-25 11:00] VITALS: BP 156/69
--- NOTE | 2018-12-25 14:23 | NUR ---
SS following for discharge planning. SS reviewed pt chart. Pt is from home and is currently on room air. PT/OT ordered. SS will await PT/OT evaluations and recommendations and will proceed accordingly with discharge planning.
[2018-12-25] MEDS: cefTRIAXone IV Push 1 GM VIAL. IVP SCH (14:48)
[2018-12-25] MEDS: DICLOFENAC SODIUM 1% TOPICAL GEL 100GM TUBE. TP SCH ×2 (14:48→20:04)
[2018-12-25 15:00] VITALS: BP 126/68
[2018-12-25] MEDS: WARFARIN 4 MG TABLET. PO SCH (15:28)
[2018-12-25] MEDS ORDERED: WARFARIN 7.5 MG TABLET. PO SCH (16:00)
[2018-12-25 19:00] VITALS: BP 122/71
[2018-12-25] MEDS: ATORVASTATIN CALCIUM 40 MG TABLET. PO SCH (20:02)
[2018-12-25] MEDS: HYDROcodone/APAP 5/325MG 1 TAB TABLET PO PRN (20:03)
--- NOTE | 2018-12-25 22:05 | CONS ---
DATE OF CONSULTATION: 12/25/2018 REASON FOR CONSULTATION: Left hip pain. REQUESTING PHYSICIAN: Dr. Dangelo Moser HISTORY OF PRESENT ILLNESS: The patient is a 78-year-old female who had the sudden onset of left hip pain about 4 days ago and describes somewhat of a fall, although she said she fell very lightly really against a piece of furniture two separate instances and really did not exactly have immediate hip pain. It was first lower over the hip and now is higher over the outside of the hip, denies really radiation but the day of admission, her symptoms got worse and she was unable to bear weight on the left lower extremity and had difficulty getting around. Again, she really denies any specific trauma or no actual fall to the ground. She denies any loss of consciousness, hitting her head. No neck or back pain, radiating pain in the extremities. PAST MEDICAL HISTORY: Significant for type 2 diabetes, history of DVT, hypertension, hypercholesterolemia, pneumonia, lymphedema and a history of pulmonary embolism. PAST SURGICAL HISTORY: Surgery as an . MEDICATIONS: List is reviewed. ALLERGIES: She has no known drug allergies. FAMILY HISTORY: Noncontributory. SOCIAL HISTORY: Previously got around independently. Denies tobacco, alcohol or drug use. REVIEW OF SYSTEMS: Some stiffness on the left hip and chronic lower extremity lymphedema, otherwise per history of present illness. PHYSICAL EXAMINATION: GENERAL: Pleasant, cooperative 78-year-old female, alert and oriented, no acute distress. EXTREMITIES: On examination of the left hip, she really has no tenderness on internal and external rotation or weightbearing through an extended still extremity. She has a bit more pain on extremes of motion of the left hip compared to the right and tenderness over the trochanteric bursa on the left compared to the right as well. Negative straight leg raise. Normal stability bilaterally. Normal alignment, stability of bilateral knees and ankles. She does have some chronic lower extremity 2+ pitting edema. Toes are warm. She has some stiffness in the ankles and feet due to the chronic lymphedema as well. IMAGING STUDIES: Include AP of the pelvis, lateral hip and a CT of the lower extremity, none of which show any degenerative change or evidence of fracture. She does have on CT small indication on the radiology report of some calcification around the area of the greater tuberosity, perhaps an old avulsion type fracture, although on her physical examination, she has no abduction weakness whatsoever or pain associated with that maneuver so that the diagnosis is likely chronic. IMPRESSION: Left hip pain and trochanteric bursitis status post fall. TREATMENT PLAN: I went over with her the fact that she seems to be aggravated mainly over the musculature of the hip. She has some mild trochanteric bursitis as well since this issue is only a few days old, not in favor of immediate injection and would rather have her go through some physical therapy and see how she responds as she does not seem to have a structural deficit. She is therefore weightbearing as tolerated. Physical therapy can do ambulation and transfers without restrictions. I told her we could keep in the back of our mind if she continues to have pain over the trochanteric bursa area and eventual injection, although I probably hold off a little bit to see how she progresses with physical therapy. SHIVA ZHANG MD DR: FRENCH/roge JOB#: [id number] / [id number] DANGELO Tyler MD
[2018-12-25 23:00] VITALS: BP_SYST 122; BP_SYST 129; BP_DIAS 71
[2018-12-26 03:00] VITALS: BP 102/43
[2018-12-26] MEDS: PANTOPRAZOLE 40 MG TABLET.DR. PO SCH (06:27)
[2018-12-26] MEDS: HYDROcodone/APAP 5/325MG 1 TAB TABLET PO PRN ×2 (06:27→14:38)
[2018-12-26 07:00] VITALS: BP 129/81
[2018-12-26] MEDS: INSULIN LISPRO 300 UNITS/3 ML VIAL. SQ SCH ×3 (08:11→17:38)
[2018-12-26] MEDS: LOSARTAN POTASSIUM 25 MG TABLET. PO SCH (09:00)
[2018-12-26] MEDS: POTASSIUM CHLORIDE 10 MEQ TABLET.ER. PO SCH ×2 (09:08→20:53)
[2018-12-26] MEDS: FERROUS SULFATE 325 MG TABLET. PO SCH (09:08)
[2018-12-26] MEDS: ALLOPURINOL 300 MG TABLET. PO SCH (09:09)
[2018-12-26] MEDS: FUROSEMIDE 40 MG TABLET. PO SCH (09:10)
[2018-12-26] MEDS: DICLOFENAC SODIUM 1% TOPICAL GEL 100GM TUBE. TP SCH ×2 (09:12→20:54)
[2018-12-26] MEDS: INSULIN GLARGINE SYRINGE. SQ SCH ×2 (09:17→20:46)
[2018-12-26 11:00] VITALS: BP 120/52
--- NOTE | 2018-12-26 11:25 | PDOC ---
PROGRESS NOTES Subjective Subjective Patient states pain in left hip is a little better. Objective Objective Vital Signs Date Time Temp Pulse Resp B/P (MAP) Pulse Ox O2 Delivery O2 Flow Rate FiO2 12/26/18 09:00 65 116/53 12/26/18 07:27 20 Room Air 12/26/18 07:00 97.4 97 97.4 Intake and Output 12/26/18 07:00 Intake Total 1240 ml Output Total 500 ml Balance 740 ml Intake Oral 1240 ml Output Urine Total 500 ml # Voids 5 Physical Exam Abdomen: Normal bowel sounds, Soft, No tenderness Heart: Regular rate Extremities: Other (no pitting edema present, Tubigrips on) General: Alert, Oriented X3, No acute distress Lungs: Clear to auscultation Plan Plan of Care 1. L hip pain - appreciate Orthopedics input. Dr Linder feels patient having bursitis, no evidence of acute fracture. Continue po pain meds. 2. probable UTI - UA at admission had TNTC WBC's but also moderate squamous cells and patient was started on Rocephin. Unfortunately, no urine culture was done and lab no longer has the urine specimen. New UA and culture ordered, culture may be negative as she has received two doses of Rocephin. 3. DM2 - well controlled, continue present medication. 4. HTN - well controlled with present medications. 5. hx DVT - stable, continue Coumadin. INR was low at admission. 6. debility and mobility deficits - continue therapies, anticipate transfer to long-term when ready for discharge. Comment Review of Relevant I have reviewed the following items edis (where applicable) has been applied. Labs Laboratory Tests Test 12/24/18 21:46 12/25/18 01:10 12/25/18 07:25 12/25/18 07:51 Glucose (Fingerstick) 179 mg/dL (70-99) 146 mg/dL (70-99) Urine Collection Type Unknown Urine Color Yellow Urine Clarity Clear Urine pH 6.0 Urine Specific [place] 1.020 Urine Protein 30 mg/dL (NEG-TRACE) Urine Glucose (UA) Negative mg/dL (NEG) Urine Ketones (Stick) Negative mg/dL (NEG) Urine Blood Negative (NEG) Urine Nitrite Negative (NEG) Urine Bilirubin Negative (NEG) Urine Urobilinogen Dipstick 0.2 mg/dL (0.2 mg/dL) Urine Leukocyte Esterase Moderate (NEG) Urine RBC 0 /HPF (0-2) Urine WBC Tntc /HPF (0-4) Urine Squamous Epithelial Cells Mod /LPF Urine Bacteria Mod /HPF (0-FEW) Urine Mucus Slight /LPF Urine Yeast Present /HPF White Blood Count 5.0 x10^3/uL (4.0-11.0) Red Blood Count 4.02 x10^6/uL (3.50-5.40) Hemoglobin 11.0 g/dL (12.0-15.5) Hematocrit 33.7 % (36.0-47.0) Mean Corpuscular Volume 84 fL (79-100) Mean Corpuscular Hemoglobin 27 pg (25-35) Mean Corpuscular Hemoglobin Concent 33 g/dL (31-37) Red Cell Distribution Width 17.9 % (11.5-14.5) Platelet Count 338 x10^3/uL (140-400) Neutrophils (%) (Auto) 63 % (31-73) Lymphocytes (%) (Auto) 23 % (24-48) Monocytes (%) (Auto) 8 % (0-9) Eosinophils (%) (Auto) 5 % (0-3) Basophils (%) (Auto) 1 % (0-3) Neutrophils # (Auto) 3.2 x10^3/uL (1.8-7.7) Lymphocytes # (Auto) 1.1 x10^3/uL (1.0-4.8) Monocytes # (Auto) 0.4 x10^3/uL (0.0-1.1) Eosinophils # (Auto) 0.3 x10^3/uL (0.0-0.7) Basophils # (Auto) 0.0 x10^3/uL (0.0-0.2) Prothrombin Time 17.9 SEC (11.7-14.0) Prothromb Time International Ratio 1.5 (0.8-1.1) Sodium Level 142 mmol/L (136-145) Potassium Level 3.8 mmol/L (3.5-5.1) Chloride Level 106 mmol/L (98-107) Carbon Dioxide Level 27 mmol/L (21-32) Anion Gap 9 (6-14) Blood Urea Nitrogen 21 mg/dL (7-20) Creatinine 1.3 mg/dL (0.6-1.0) Estimated GFR (Cockcroft-Gault) 39.7 Glucose Level 159 mg/dL (70-99) Calcium Level 9.0 mg/dL (8.5-10.1) Test 12/25/18 11:43 12/25/18 17:03 12/25/18 20:54 12/26/18 07:45 Glucose (Fingerstick) 156 mg/dL (70-99) 186 mg/dL (70-99) 183 mg/dL (70-99) 197 mg/dL (70-99) Laboratory Tests Test 12/25/18 11:43 12/25/18 17:03 12/25/18 20:54 12/26/18 07:45 Glucose (Fingerstick) 156 mg/dL (70-99) 186 mg/dL (70-99) 183 mg/dL (70-99) 197 mg/dL (70-99) Medications Current Medications Fentanyl Citrate (Fentanyl 2ml Vial) 50 mcg 1X ONCE IM ; Start 12/24/18 at 16:30; Stop 12/24/18 at 16:31; Status Cancel Morphine Sulfate (Morphine Sulfate) 5 mg 1X ONCE IV Last administered on 12/24/18at 17:16; Start 12/24/18 at 17:00; Stop 12/24/18 at 17:01; Status DC Ondansetron HCl (Zofran) 4 mg PRN Q8HRS PRN IV NAUSEA/VOMITING; Start 12/24/18 at 19:45; Stop 12/25/18 at 19:44; Status DC Morphine Sulfate (Morphine Sulfate) 4 mg PRN Q2HR PRN IV PAIN; Start 12/24/18 at 19:45; Stop 12/25/18 at 19:44; Status DC Acetaminophen (Tylenol) 650 mg PRN Q4HRS PRN PO FEVER; Start 12/24/18 at 19:45; Stop 12/25/18 at 19:44; Status DC Allopurinol (Zyloprim) 300 mg DAILY PO Last administered on 12/26/18at 09:09; Start 12/25/18 at 09:00 Atorvastatin Calcium (Lipitor) 40 mg QHS PO Last administered on 12/25/18at 20:02; Start 12/25/18 at 21:00 Diltiazem HCl (Cardizem 24hr Cd) 120 mg DAILY PO Last administered on 12/25/18 08:26; Start 12/25/18 at 09:00 Ergocalciferol (Vitamin D2) 50,000 unit WEEKLY PO ; Start 12/31/18 at 09:00 Ferrous Sulfate (Feosol) 325 mg DAILY PO Last administered on 12/26/18 09:08; Start 12/25/18 at 09:00 Furosemide (Lasix) 40 mg DAILY PO Last administered on 12/26/18 09:10; Start 12/25/18 at 09:00 Losartan Potassium (Cozaar) 25 mg DAILY PO Last administered on 12/25/18 08:25; Start 12/25/18 at 09:00 Pantoprazole Sodium (Protonix) 40 mg DAILYAC PO Last administered on 12/26/18 06:27; Start 12/25/18 at 07:30 Potassium Chloride (Klor-Con) 10 meq BID PO Last administered on 12/26/18 09:08; Start 12/25/18 at 09:00 Warfarin Sodium (Coumadin) 7.5 mg DAILY16 PO ; Start 12/25/18 at 16:00; Stop 12/24/18 at 23:43; Status DC Insulin Glargine (Lantus Syringe) 37 unit BID SQ Last administered on 12/26/18 09:17; Start 12/25/18 at 09:00 Insulin Human Lispro (HumaLOG) 25 units TIDWMEALS SQ Last administered on 12/26/18at 08:11; Start 12/25/18 at 08:00 Acetaminophen/ Hydrocodone Bitart (Lortab 5/325) 1 tab PRN Q4HRS PRN PO MILD PAIN 1-3; Start 12/24/18 at 23:45 Acetaminophen/ Hydrocodone Bitart (Lortab 5/325) 2 tab PRN Q4HRS PRN PO MODERATE PAIN, SEVERE PAIN Last administered on 12/26/18 06:27; Start 12/24/18 at 23:45 Warfarin Sodium (Coumadin) 4 mg DAILY16 PO Last administered on 12/25/18at 15:28; Start 12/25/18 at 16:00 Influenza Virus Vaccine Quadrival (Afluria Quad 2019-20 (3yr Up) Syringe) 0.5 ml ONCE ONCE VAX IM Last administered on 12/25/18at 12:27; Start 12/25/18 at 09:00; Stop 12/25/18 at 09:01; Status DC Warfarin Sodium (Coumadin Per Physician) 1 each PRN DAILY PRN MC SEE COMMENTS; Start 12/25/18 at 07:30 Ceftriaxone Sodium (Rocephin) 1 gm Q24H IVP Last administered on 12/25/18at 14:48; Start 12/25/18 at 14:00 Diclofenac Sodium (Voltaren) 1 melissa BID TP Last administered on 12/26/18at 09:12; Start 12/25/18 at 14:00 Active Scripts Active Coumadin (Warfarin Sodium) 7.5 Mg Tablet 7.5 Mg PO DAILY16 30 Days Ferrous Sulfate 325 Mg Tablet 1 Tab PO DAILY Cozaar (Losartan Potassium) 25 Mg Tablet 25 Mg PO DAILY Diltiazem 24HR Cd (Diltiazem Hcl) 120 Mg Cap.er.24h 120 Mg PO DAILY Reported Vitamin D2 (Ergocalciferol (Vitamin D2)) 50,000 Unit Capsule 1 Cap PO WEEKLY Furosemide 40 Mg Tablet 1 Tab PO DAILY [novolin R] 25 Units SQ TIDAC [novolin N] 37 Units SQ BIDAFTMEAL Potassium Chloride 10 Meq Tablet.er 10 Meq PO BID Pantoprazole Sodium (Pantoprazole Sodium) 40 Mg Tablet.dr 1 Tab PO DAILY Atorvastatin Calcium 40 Mg Tablet 1 Tab PO QHS Allopurinol 300 Mg Tablet 1 Tab PO DAILY Vitals/I & O Vital Sign - Last 24 Hours 12/25/18 12/25/18 12/25/18 12/25/18 15:00 19:00 20:00 20:03 Temp 98.0 98.3 98.0 98.3 Pulse 72 77 Resp 20 18 18 B/P (MAP) 126/68 (87) 122/71 (88) Pulse Ox 99 97 99 O2 Delivery Room Air Room Air Room Air Room Air 12/25/18 12/25/18 12/26/18 12/26/18 21:03 23:00 03:00 06:27 Temp 98.3 97.9 98.3 97.9 Pulse 83 76 Resp 18 18 18 B/P (MAP) 129/71 (90) 102/43 (62) Pulse Ox 99 97 96 96 O2 Delivery Room Air Room Air Room Air Room Air 12/26/18 12/26/18 12/26/18 12/26/18 07:00 07:27 09:00 09:00 Temp 97.4 97.4 Pulse 72 65 65 Resp 16 20 B/P (MAP) 129/81 (97) 116/53 116/53 Pulse Ox 97 O2 Delivery Room Air Room Air Intake and Output 12/25/18 12/25/18 12/26/18 15:00 23:00 07:00 Intake Total 700 ml 540 ml Output Total 200 ml 300 ml Balance 500 ml 240 ml Nutrition Consultation Dietary Evaluation: Comments: Suggest continue the ADA, cardiac diet with three meals per day Expected Outcomes/Goals: Stable weight PO intake >75% of estimated nutritional needs Malnutrition Findings: Malnutrition related to morbid: BMI>or equal to 40 Malnutrition related to morbid: Yes Weight Status: Morbidly Obese MERRICK TOURE MD Dec 26, 2018 11:25
[2018-12-26] MEDS: cefTRIAXone IV Push 1 GM VIAL. IVP SCH (14:38)
[2018-12-26 15:00] VITALS: BP 142/67
[2018-12-26] MEDS: WARFARIN 4 MG TABLET. PO SCH (17:34)
[2018-12-26] MEDS ORDERED: ACETAMINOPHEN 500 MG TABLET PO PRN (18:00)
[2018-12-26] MEDS ORDERED: METHOCARBAMOL 750 MG TABLET PO PRN (18:00)
[2018-12-26 19:00] VITALS: BP 133/52
[2018-12-26] MEDS: ATORVASTATIN CALCIUM 40 MG TABLET. PO SCH (20:52)
[2018-12-26] MEDS: LACTOBACILLUS RHAMNOSUS GG 1 CAPSULE. PO SCH (20:53)
[2018-12-26 23:00] VITALS: BP 125/57
[2018-12-27 02:52] VITALS: BP 127/47
[2018-12-27 05:35] LABS: PROTHROMBIN TIME PATIENT 19.9 SEC (11.7-14.0)
[2018-12-27] MEDS: PANTOPRAZOLE 40 MG TABLET.DR. PO SCH (05:58)
[2018-12-27] MEDS: HYDROcodone/APAP 5/325MG 1 TAB TABLET PO PRN (06:23)
[2018-12-27 07:05] VITALS: BP 146/57
[2018-12-27] MEDS: ALLOPURINOL 300 MG TABLET. PO SCH (08:19)
[2018-12-27] MEDS: LACTOBACILLUS RHAMNOSUS GG 1 CAPSULE. PO SCH ×2 (08:19→21:03)
[2018-12-27] MEDS: LOSARTAN POTASSIUM 25 MG TABLET. PO SCH (08:19)
[2018-12-27] MEDS: FERROUS SULFATE 325 MG TABLET. PO SCH (08:20)
[2018-12-27] MEDS: POTASSIUM CHLORIDE 10 MEQ TABLET.ER. PO SCH ×2 (08:20→21:03)
[2018-12-27] MEDS: FUROSEMIDE 40 MG TABLET. PO SCH (08:20)
[2018-12-27] MEDS: INSULIN GLARGINE SYRINGE. SQ SCH ×2 (08:27→21:31)
[2018-12-27] MEDS: DICLOFENAC SODIUM 1% TOPICAL GEL 100GM TUBE. TP SCH ×2 (08:28→21:02)
[2018-12-27] MEDS: INSULIN LISPRO 300 UNITS/3 ML VIAL. SQ SCH ×3 (08:28→16:47)
--- NOTE | 2018-12-27 10:53 | PDOC ---
PROGRESS NOTES Subjective Subjective Patient reports pain in left hip is decreasing and mobility is improving. Objective Objective Vital Signs Date Time Temp Pulse Resp B/P (MAP) Pulse Ox O2 Delivery O2 Flow Rate FiO2 12/27/18 08:20 82 146/57 12/27/18 07:25 99 Room Air 12/27/18 07:05 97.6 18 97.6 Intake and Output 12/27/18 06:59 Intake Total 910 ml Balance 910 ml Intake Oral 910 ml # Voids 3 Physical Exam Abdomen: Normal bowel sounds, Soft, No tenderness Heart: Regular rate Extremities: No edema General: Alert, Oriented X3, No acute distress Lungs: Clear to auscultation Plan Plan of Care 1. L hip pain with bursitis - improving and able to do more with PT, Continue present tx, may be able to go home when ready for discharge instead of to [place]. 2. Probably UTI - repeat UA was not collected yesterday so no culture will be available. Continue Rocephin. 3. DM2 - controlled, continue insulins. 4. HTN - controlled, continue present medication. 5. chronic anticoagulation - INR improving but still low, continue Coumadin. Comment Review of Relevant I have reviewed the following items edis (where applicable) has been applied. Labs Laboratory Tests Test 12/25/18 11:43 12/25/18 17:03 12/25/18 20:54 12/26/18 07:45 Glucose (Fingerstick) 156 mg/dL (70-99) 186 mg/dL (70-99) 183 mg/dL (70-99) 197 mg/dL (70-99) Test 12/26/18 11:32 12/26/18 16:24 12/26/18 20:16 12/27/18 04:30 Glucose (Fingerstick) 93 mg/dL (70-99) 146 mg/dL (70-99) 83 mg/dL (70-99) Prothrombin Time 19.9 SEC (11.7-14.0) Prothromb Time International Ratio 1.7 (0.8-1.1) Test 12/27/18 07:07 Glucose (Fingerstick) 136 mg/dL (70-99) Laboratory Tests Test 12/26/18 11:32 12/26/18 16:24 12/26/18 20:16 12/27/18 04:30 Glucose (Fingerstick) 93 mg/dL (70-99) 146 mg/dL (70-99) 83 mg/dL (70-99) Prothrombin Time 19.9 SEC (11.7-14.0) Prothromb Time International Ratio 1.7 (0.8-1.1) Test 12/27/18 07:07 Glucose (Fingerstick) 136 mg/dL (70-99) Medications Current Medications Fentanyl Citrate (Fentanyl 2ml Vial) 50 mcg 1X ONCE IM ; Start 12/24/18 at 16:30; Stop 12/24/18 at 16:31; Status Cancel Morphine Sulfate (Morphine Sulfate) 5 mg 1X ONCE IV Last administered on 12/24/18at 17:16; Start 12/24/18 at 17:00; Stop 12/24/18 at 17:01; Status DC Ondansetron HCl (Zofran) 4 mg PRN Q8HRS PRN IV NAUSEA/VOMITING; Start 12/24/18 at 19:45; Stop 12/25/18 at 19:44; Status DC Morphine Sulfate (Morphine Sulfate) 4 mg PRN Q2HR PRN IV PAIN; Start 12/24/18 at 19:45; Stop 12/25/18 at 19:44; Status DC Acetaminophen (Tylenol) 650 mg PRN Q4HRS PRN PO FEVER; Start 12/24/18 at 19:45; Stop 12/25/18 at 19:44; Status DC Allopurinol (Zyloprim) 300 mg DAILY PO Last administered on 12/27/18at 08:19; Start 12/25/18 at 09:00 Atorvastatin Calcium (Lipitor) 40 mg QHS PO Last administered on 12/26/18at 20:52; Start 12/25/18 at 21:00 Diltiazem HCl (Cardizem 24hr Cd) 120 mg DAILY PO Last administered on 12/27/18at 08:20; Start 12/25/18 at 09:00 Ergocalciferol (Vitamin D2) 50,000 unit WEEKLY PO ; Start 12/31/18 at 09:00 Ferrous Sulfate (Feosol) 325 mg DAILY PO Last administered on 12/27/18at 08:20; Start 12/25/18 at 09:00 Furosemide (Lasix) 40 mg DAILY PO Last administered on 9/29/19at 08:20; Start 12/25/18 at 09:00 Losartan Potassium (Cozaar) 25 mg DAILY PO Last administered on 12/27/18 08:19; Start 12/25/18 at 09:00 Pantoprazole Sodium (Protonix) 40 mg DAILYAC PO Last administered on 12/27/18 05:58; Start 12/25/18 at 07:30 Potassium Chloride (Klor-Con) 10 meq BID PO Last administered on 12/27/18 08:20; Start 12/25/18 at 09:00 Warfarin Sodium (Coumadin) 7.5 mg DAILY16 PO ; Start 12/25/18 at 16:00; Stop 12/24/18 at 23:43; Status DC Insulin Glargine (Lantus Syringe) 37 unit BID SQ Last administered on 12/27/18 08:27; Start 12/25/18 at 09:00 Insulin Human Lispro (HumaLOG) 25 units TIDWMEALS SQ Last administered on 12/27/18 08:28; Start 12/25/18 at 08:00 Acetaminophen/ Hydrocodone Bitart (Lortab 5/325) 1 tab PRN Q4HRS PRN PO MILD PAIN 1-3 Last administered on 12/27/18 06:23; Start 12/24/18 at 23:45 Acetaminophen/ Hydrocodone Bitart (Lortab 5/325) 2 tab PRN Q4HRS PRN PO MODERATE PAIN, SEVERE PAIN Last administered on 12/26/18 14:38; Start 12/24/18 at 23:45 Warfarin Sodium (Coumadin) 4 mg DAILY16 PO Last administered on 12/26/18 17:34; Start 12/25/18 at 16:00 Influenza Virus Vaccine Quadrival (Afluria Quad 2019-20 (3yr Up) Syringe) 0.5 ml ONCE ONCE VAX IM Last administered on 12/25/18 12:27; Start 12/25/18 at 09:00; Stop 12/25/18 at 09:01; Status DC Warfarin Sodium (Coumadin Per Physician) 1 each PRN DAILY PRN MC SEE COMMENTS Last administered on 12/26/18 11:20; Start 12/25/18 at 07:30 Ceftriaxone Sodium (Rocephin) 1 gm Q24H IVP Last administered on 9/28/19at 14:38; Start 12/25/18 at 14:00 Diclofenac Sodium (Voltaren) 1 melissa BID TP Last administered on 12/27/18at 08:28; Start 12/25/18 at 14:00 Lactobacillus Rhamnosus (Culturelle) 1 cap BID PO Last administered on 12/27/18at 08:19; Start 12/26/18 at 21:00 Acetaminophen (Tylenol) 1,000 mg PRN Q6HRS PRN PO pain mild; Start 12/26/18 at 18:00 Methocarbamol (Robaxin) 1,500 mg PRN Q8HRS PRN PO MUSCLE SPASMS; Start 12/26/18 at 18:00 Active Scripts Active Coumadin (Warfarin Sodium) 7.5 Mg Tablet 7.5 Mg PO DAILY16 30 Days Ferrous Sulfate 325 Mg Tablet 1 Tab PO DAILY Cozaar (Losartan Potassium) 25 Mg Tablet 25 Mg PO DAILY Diltiazem 24HR Cd (Diltiazem Hcl) 120 Mg Cap.er.24h 120 Mg PO DAILY Reported Vitamin D2 (Ergocalciferol (Vitamin D2)) 50,000 Unit Capsule 1 Cap PO WEEKLY Furosemide 40 Mg Tablet 1 Tab PO DAILY [novolin R] 25 Units SQ TIDAC [novolin N] 37 Units SQ BIDAFTMEAL Potassium Chloride 10 Meq Tablet.er 10 Meq PO BID Pantoprazole Sodium (Pantoprazole Sodium) 40 Mg Tablet.dr 1 Tab PO DAILY Atorvastatin Calcium 40 Mg Tablet 1 Tab PO QHS Allopurinol 300 Mg Tablet 1 Tab PO DAILY Vitals/I & O Vital Sign - Last 24 Hours 12/26/18 12/26/18 12/26/18 12/26/18 11:00 14:38 15:00 15:38 Temp 97.4 97.9 97.4 97.9 Pulse 66 79 Resp 16 20 16 16 B/P (MAP) 120/52 (74) 142/67 (92) Pulse Ox 96 95 O2 Delivery Room Air Room Air Room Air Room Air 12/26/18 12/26/18 12/26/18 12/27/18 19:00 19:35 23:00 02:52 Temp 98.3 97.9 97.5 98.3 97.9 97.5 Pulse 80 78 77 Resp 18 18 18 B/P (MAP) 133/52 (79) 125/57 (79) 127/47 (73) Pulse Ox 96 97 97 O2 Delivery Room Air Room Air Room Air Room Air 12/27/18 12/27/18 12/27/18 12/27/18 06:23 07:05 07:25 08:19 Temp 97.6 97.6 Pulse 82 82 Resp 18 B/P (MAP) 146/57 (86) 146/57 Pulse Ox 99 99 O2 Delivery Room Air Room Air Room Air 12/27/18 08:20 Pulse 82 B/P (MAP) 146/57 Intake and Output 12/26/18 12/26/18 12/27/18 14:59 22:59 06:59 Intake Total 280 ml 380 ml 250 ml Balance 280 ml 380 ml 250 ml Nutrition Consultation Dietary Evaluation: Comments: Suggest continue the ADA, cardiac diet with three meals per day Expected Outcomes/Goals: Stable weight PO intake >75% of estimated nutritional needs Malnutrition Findings: Malnutrition related to morbid: BMI>or equal to 40 Malnutrition related to morbid: Yes Weight Status: Morbidly Obese MERRICK TOURE MD Dec 27, 2018 10:53
[2018-12-27 11:00] VITALS: BP 123/64
[2018-12-27 15:00] VITALS: BP 110/57
[2018-12-27] MEDS: cefTRIAXone IV Push 1 GM VIAL. IVP SCH (15:25)
[2018-12-27] MEDS: WARFARIN 4 MG TABLET. PO SCH (15:36)
[2018-12-27] MEDS ORDERED: DEXTROSE 50% 25 GM / 50ML DISP.SYRIN. IV PRN (17:00)
[2018-12-27 19:00] VITALS: BP 142/63
[2018-12-27] MEDS: ATORVASTATIN CALCIUM 40 MG TABLET. PO SCH (21:03)
[2018-12-27 23:02] VITALS: BP 147/58
[2018-12-28 03:10] VITALS: BP 138/62
[2018-12-28] MEDS: HYDROcodone/APAP 5/325MG 1 TAB TABLET PO PRN ×2 (03:35→14:19)
[2018-12-28] MEDS: PANTOPRAZOLE 40 MG TABLET.DR. PO SCH (06:17)
[2018-12-28 07:00] VITALS: BP 134/58
[2018-12-28] MEDS: LACTOBACILLUS RHAMNOSUS GG 1 CAPSULE. PO SCH ×2 (08:24→21:17)
[2018-12-28] MEDS: POTASSIUM CHLORIDE 10 MEQ TABLET.ER. PO SCH ×2 (08:24→21:17)
[2018-12-28] MEDS: FERROUS SULFATE 325 MG TABLET. PO SCH (08:24)
[2018-12-28] MEDS: LOSARTAN POTASSIUM 25 MG TABLET. PO SCH (08:25)
[2018-12-28] MEDS: ALLOPURINOL 300 MG TABLET. PO SCH (08:25)
[2018-12-28] MEDS: FUROSEMIDE 40 MG TABLET. PO SCH (08:26)
[2018-12-28] MEDS: DICLOFENAC SODIUM 1% TOPICAL GEL 100GM TUBE. TP SCH ×2 (08:26→21:19)
[2018-12-28] MEDS: INSULIN GLARGINE SYRINGE. SQ SCH (08:33)
[2018-12-28] MEDS: INSULIN LISPRO 300 UNITS/3 ML VIAL. SQ SCH ×4 (08:33→17:00)
[2018-12-28] MEDS ORDERED: INSU100V8 SQ (08:52)
[2018-12-28] MEDS ORDERED: CEPH-264 PO (08:52)
[2018-12-28] MEDS ORDERED: METH750T2 PO (08:52)
[2018-12-28] MEDS ORDERED: DICL100G18 TP (08:52)
[2018-12-28] MEDS ORDERED: PRED-220 PO (08:53)
--- NOTE | 2018-12-28 08:55 | SNU/HH DC ---
DISCHARGE ORDERS DISCHARGE INFORMATION: DISCHARGE DATE: Dec 28, 2018 FINAL DIAGNOSIS Uti Debilitatin Hip Bursitis Morbid obesity CONDITION ON DISCHARGE: Stable CODE STATUS: Code Status: Full [facility]: SNF STAY <30 DAYS: Yes POST DISCHARGE ORDERS: ACTIVITY ORDERS: Activity as tolerated WEIGHT BEARING STATUS: As tolerated DIET AFTER DISCHARGE: ADA CHECKS AFTER DISCHARGE: CHECKS AFTER DISCHARGE: Check blood press - daily, Check blood sugar, ac/hs TREATMENT/EQUIPMENT ORDERS: Physical Therapy For: Evalulation/Treatment Occupational Therapy For: Evaluation/Treatment DISCHARGE MEDICATIONS: Home Meds Active Scripts Prednisone (PREDNISONE ) 10 Mg Tablet, 10 MG PO UD for OA, #30 TAB 0 Refills Take 5 tablets by mouth daily for 2 days, then take 4 tablets by mouth daily for 2 days, then take 3 tablets by mouth daily for 2 days, then take 2 tablets by mouth daily for 2 days, then take 1 tablets by mouth daily for 2 days, then stop. Prov:HARPREET ZAMORA MD 12/28/18 Cephalexin (KEFLEX) 500 Mg Capsule, 2 CAP PO TID for UTI, #21 CAP Prov:HARPREET ZAMORA MD 12/28/18 Insulin Glargine,Hum.rec.anlog (LANTUS) 100 Unit/1 Ml Vial, 20 UNIT SQ BID for DM2 for 30 Days, #1 EACH Prov:HARPREET ZAMORA MD 12/28/18 Diclofenac Sodium (VOLTAREN) 100 Gm Gel..gram., 1 VU TP BID for Pain for 14 Days, #28 EACH Prov:HARPREET ZAMORA MD 12/28/18 Methocarbamol (METHOCARBAMOL) 750 Mg Tablet, 750 MG PO PRN Q8HRS PRN for MUSCLE SPASMS for 14 Days, #60 TAB Prov:HARPREET ZAMORA MD 12/28/18 Warfarin Sodium (COUMADIN) 7.5 Mg Tablet, 7.5 MG PO DAILY16 for 30 Days, #30 TAB Prov:HARPREET ZAMORA MD 09/29/17 Ferrous Sulfate (FERROUS SULFATE) 325 Mg Tablet, 1 TAB PO DAILY, #30 TAB 3 Refills Prov:MERRICK TOURE MD 06/10/16 Losartan Potassium (COZAAR ) 25 Mg Tablet, 25 MG PO DAILY, #30 TAB Prov:HARPREET ZAMORA MD 04/04/16 Diltiazem Hcl (DILTIAZEM 24HR CD) 120 Mg Cap.er.24h, 120 MG PO DAILY, #30 TAB Prov:HARPREET ZAMORA MD 04/04/16 Reported Medications Ergocalciferol (Vitamin D2) (VITAMIN D2) 50,000 Unit Capsule, 1 CAP PO WEEKLY, #4 CAP 5 Refills 06/21/16 Furosemide (FUROSEMIDE) 40 Mg Tablet, 1 TAB PO DAILY, #30 TAB 5 Refills 04/01/16 [novolin R] No Conflict Check, 25 UNITS SQ TIDAC 04/01/16 Potassium Chloride (POTASSIUM CHLORIDE) 10 Meq Tablet.er, 10 MEQ PO BID, TAB 04/01/16 Pantoprazole Sodium (PANTOPRAZOLE SODIUM ) 40 Mg Tablet.dr, 1 TAB PO DAILY, #30 TAB 3 Refills 04/01/16 Atorvastatin Calcium (ATORVASTATIN CALCIUM) 40 Mg Tablet, 1 TAB PO QHS, #90 TAB 3 Refills 04/01/16 Allopurinol (ALLOPURINOL) 300 Mg Tablet, 1 TAB PO DAILY, #30 TAB 5 Refills 04/01/16 Discontinued Reported Medications [novolin N] No Conflict Check, 37 UNITS SQ BIDAFTMEAL 04/01/16 HARPREET ZAMORA MD Dec 28, 2018 08:55
[2018-12-28 11:00] VITALS: BP 142/51
[2018-12-28] MEDS: cefTRIAXone IV Push 1 GM VIAL. IVP SCH (14:20)
[2018-12-28 14:24] LABS: BILIRUBIN,URINE NEGATIVE (NEG); CLARITY,URINE CLOUDY; COLOR,URINE YELLOW; NITRITE,URINE NEGATIVE (NEG); PROTEIN,URINE NEGATIVE (NEG-TRACE); UROBILINOGEN,URINE 0.2 mg/dL (0.2 mg/dL)
[2018-12-28 14:39] LABS: BACTERIA,URINE FEW /HPF (0-FEW); SQUAMOUS EPITHELIAL CELL,UR OCC /LPF; WBC,URINE TNTC /HPF (0-4)
[2018-12-28 14:40] LABS: YEAST,URINE PRESENT /HPF
[2018-12-28 15:00] VITALS: BP 101/59
--- NOTE | 2018-12-28 15:50 | NUR ---
Pt's BS 34. Pt. states she feels dizzy and a little shaky. OJ x [address] Shanti westfall.
--- NOTE | 2018-12-28 16:04 | NUR ---
Dr. Louis notified of BS 34, orders received.
[2018-12-28] MEDS ORDERED: INSULIN GLARGINE SYRINGE. SQ SCH ×2 (16:15→21:00)
[2018-12-28] MEDS: WARFARIN 4 MG TABLET. PO SCH (17:38)
--- NOTE | 2018-12-28 18:29 | NUR ---
Dr. Lafleur returned call, notified about pt's family communication re: bx, hospice, etc. Orders received. Addendum: 12/28/18 at 1833 by NAZIA NUNES RN Charted on wrong patient.
[2018-12-28 19:00] VITALS: BP 110/53
[2018-12-28] MEDS: ATORVASTATIN CALCIUM 40 MG TABLET. PO SCH (21:17)
[2018-12-28 23:00] VITALS: BP 111/32
[2018-12-29 03:00] VITALS: BP 121/54
[2018-12-29 04:45] LABS: PROTHROMBIN TIME PATIENT 24.1 SEC (11.7-14.0)
[2018-12-29 07:00] VITALS: BP 127/72
[2018-12-29] MEDS: PANTOPRAZOLE 40 MG TABLET.DR. PO SCH (07:16)
[2018-12-29] MEDS: INSULIN LISPRO 300 UNITS/3 ML VIAL. SQ SCH ×2 (07:58→11:03)
[2018-12-29] MEDS: ALLOPURINOL 300 MG TABLET. PO SCH (08:30)
[2018-12-29] MEDS: DICLOFENAC SODIUM 1% TOPICAL GEL 100GM TUBE. TP SCH (08:30)
[2018-12-29] MEDS: LACTOBACILLUS RHAMNOSUS GG 1 CAPSULE. PO SCH (08:30)
[2018-12-29] MEDS: FUROSEMIDE 40 MG TABLET. PO SCH (08:31)
[2018-12-29] MEDS: FERROUS SULFATE 325 MG TABLET. PO SCH (08:31)
[2018-12-29] MEDS: POTASSIUM CHLORIDE 10 MEQ TABLET.ER. PO SCH (08:31)
[2018-12-29] MEDS: LOSARTAN POTASSIUM 25 MG TABLET. PO SCH (08:32)
[2018-12-29] MEDS ORDERED: AMMONIUM LACTATE 12% TOPICAL LOTION 226GM BOTTLE. TP SCH (10:30)
[2018-12-29 11:00] VITALS: BP 116/59
[2018-12-29] MEDS: HYDROcodone/APAP 5/325MG 1 TAB TABLET PO PRN (13:31)
--- NOTE | 2018-12-29 14:20 | NUR ---
Discharge instructions reviewed with patient, verbalized understanding. Patient was escorted out via wheelchair by transportation to go to [facility].
--- NOTE | 2018-12-29 17:15 | DS ---
DATE OF DISCHARGE: 12/29/2018 ADMITTING DIAGNOSIS: Mobility deficit. SECONDARY DIAGNOSES: 1. Possible avulsion fracture of left hip. 2. Morbid obesity. 3. Atrial fibrillation. 4. Hypertension. 5. Urinary tract infection. HISTORY OF PRESENT ILLNESS AND HOSPITAL COURSE: This patient is a 78-year-old female who came to the Emergency Room with increasing left hip pain and inability to walk. She was found to have a possible avulsion fracture over trochanter. Orthopedics was consulted, but felt that no acute fracture was noted. The patient's mobility improved in hospital stay, but she was still unable to care for herself. She was also found to have a UTI and was treated with IV then p.o. antibiotics. Due to her debility, she was recommended to proceed to detention for PT and OT modalities and was discharged on the following medications: Cephalexin 500 mg 2 pills b.i.d. for one more week, diclofenac gel applied to area b.i.d., insulin 20 units Lantus b.i.d., methocarbamol 750 mg t.i.d.; prednisone taper at 50 mg for 2 days, tapering by 10 mg every other day; allopurinol 300 mg daily, Lipitor 40 mg daily, diltiazem extended release 120 mg daily, vitamin D 50,000 units weekly, iron sulfate 325 mg daily, Lasix 40 mg daily, losartan 25 mg daily, Novolin R insulin 25 units before meals, pantoprazole 40 mg daily, potassium chloride 20 mEq b.i.d., Coumadin 7.5 mg daily with INR checked via pharmacy. HARPREET ZAMORA MD DR: AMANDA/roge JOB#: [id number] / [id number]
[2018-12-31] MEDS ORDERED: ERGOCALCIFEROL (VITAMIN D2) 50,000 UNIT CAPSULE. PO SCH (09:00)
== END 2018-12-29 14:30 | DRG 558 ==
LOC: ER 14:24 → 4 NORTH 20:23
PROVIDERS: ADMIT Family Medicine; ATTEND Family Medicine
DX: M70.62 Trochanteric bursitis, left hip (principal); N39.0 Urinary tract infection, site not specified; Z68.42 Body mass index [BMI] 45.0-49.9, adult; I12.9 Hypertensive chronic kidney disease with stage 1 through stage 4 chronic kidney disease, or unspecified chronic kidney disease; E11.22 Type 2 diabetes mellitus with diabetic chronic kidney disease; E78.00 Pure hypercholesterolemia, unspecified; I48.91 Unspecified atrial fibrillation; E78.5 Hyperlipidemia, unspecified; E66.01 Morbid (severe) obesity due to excess calories; M24.00 Loose body in unspecified joint; N18.9 Chronic kidney disease, unspecified; W19.XXXA Unspecified fall, initial encounter; Z98.49 Cataract extraction status, unspecified eye; Y93.89 Activity, other specified; Y92.098 Other place in other non-institutional residence as the place of occurrence of the external cause; Y99.8 Other external cause status; Z86.718 Personal history of other venous thrombosis and embolism; Z86.711 Personal history of pulmonary embolism; Z87.01 Personal history of pneumonia (recurrent); Z80.9 Family history of malignant neoplasm, unspecified
CPT/HCPCS: 36415; 73501; 73700; 80048; 81001; 82962; 85025; 85610; 87086; 90471; 90686; 96374; J0696; J1815; J2270; 97110; 97116; 97530; 97535; 99285-25; G0378

== ENCOUNTER 2019-09-06 07:32 | Inpatient (IN) | payer MEDICARE ==
[~2019-09-06] VITALS: Ht 162.6 cm; Wt 117.1 kg
[~2019-09-06 07:32] MED LIST changes: +CEPH-264 PO; +DICL100G54 TP; +INSU100V8 SQ; +METH750T2 PO; -POTA10TA12 PO; +POTASSIUM CHLO10 ME1 PO; +PRED-220 PO
--- NOTE | 2019-09-06 08:13 | PHYS DOC ---
Past Medical History Past Medical History: Diabetes-Type II, DVT, High Cholesterol, Hypertension, Pneumonia, Other Additional Past Medical Histor: PE, lymphedema Past Surgical History: Other Additional Past Surgical Histo: chest while infant/TUBES IN LUNGS Smoking Status: Never Smoker Alcohol Use: None Drug Use: None General Adult EDM: Chief Complaint: HIP PAIN HPI: HPI: 79-year-old female past medical history significant for morbid obesity, hypertension, hyperlipidemia, GERD, iddm, A. fib on Coumadin and chf/lymphedema on Lasix, presents to the ED with atraumatic left hip pain for the past 3 days. Patient also reports increased urinary frequency and dysuria for the past week. States she has had similar symptoms in the past and was admitted for them. EMR was reviewed and patient was admitted to the hospital in November 2017 for left hip bursitis with a UTI. States she ambulates with a cane and is having difficulty bearing weight at home-cannot care for herself. Review of systems: Denies associated fever, chills, cough, headache, neck stiffness, dyspnea, hemoptysis, nausea, vomiting, diaphoresis, chest pain or pressure, unilateral or new leg swelling, flank pain, abdominal pain. Current Medications: Current Medications Medications (Trade) Dose Ordered Sig/Angy Start Time Stop Time Status Last Admin Dose Admin Ceftriaxone Sodium (Rocephin) 1 gm 1X ONCE 09/06/19 08:15 09/06/19 08:16 UNV Allergies: Allergies: Allergies Coded Allergies Type Severity Reaction Last Updated Verified No Known Drug Allergies 10/24/17 No Physical Exam: PE: Constitutional: Well developed, well nourished, no acute distress, non-toxic appearance, morbid obesity HENT: Normocephalic, atraumatic, bilateral external ears normal, oropharynx moist, no oral exudates, nose normal. [] Eyes: EOMI, conjunctiva normal, no discharge. [] Neck: Normal range of motion, no tenderness, supple, no stridor. [] Cardiovascular:Heart rate regular rhythm, no murmur [] Lungs & Thorax: Bilateral breath sounds clear to auscultation [] Abdomen: Bowel sounds normal, soft, no tenderness, no masses, no pulsatile masses. [] Skin: Warm, dry, no erythema, no rash. [] Back: No tenderness, no CVA tenderness. [] Extremities: No tenderness, no cyanosis, no clubbing, ROM intact, bl le edema- equal, can lift left leg above stretcher-no ttp Neurologic: Alert and oriented X 3, normal motor function, normal sensory function, no focal deficits noted. [] Psychologic: Affect normal, judgement normal, mood normal. [] EKG: EKG: Normal sinus rhythm at 90 bpm, no axis deviation, first-degree AV block with VT interval of 246, T wave inversions III, no ST elevations or ST depressions, has no active chest pain Radiology/Procedures: Radiology/Procedures: IMAGING REPORT Signed PATIENT: MERRICK ARRIAGA A ACCOUNT: [id number] : 1940 LOCATION: ER AGE: 79 SEX: F EXAM STATUS: REG ER ORD. PHYSICIAN: RUIZ MARCELO DO REASON: left hip pain, no injury PROCEDURE: HIP LEFT 2V WITH PELVIS HIP LEFT 2V WITH PELVIS History: Reason: left hip pain, no injury / Spl. Instructions: / History: Technique: AP view the pelvis and 2 additional views of the left hip. Comparison: December 24, 2018 Findings: Normal alignment. No fracture. Lower lumbar spondylosis. Mild bilateral hip DJD. Impression: 1. No acute osseous abnormality. 2. Mild bilateral hip DJD. Electronically signed by: Camden Wheeler DO (09/06/2019 8:30 AM) [id number] DICTATED and SIGNED BY: CAMDEN WHEELER DO DATE: 09/06/19 0830 IMAGING REPORT Signed PATIENT: MERRICK ARRIAGA AACCOUNT: [id number] : 1940 LOCATION: ER AGE: 79 SEX: F EXAM STATUS: REG ER ORD. PHYSICIAN: RUIZ MARCELO DO REASON: admit PROCEDURE: CHEST AP ONLY EXAM: CHEST AP ONLY 09/06/2019 11:20 AM CLINICAL INDICATION:Admit COMPARISON:Chest radiograph 02/16/2018 TECHNIQUE:AP upright view of the chest FINDINGS:The heart and mediastinum are normal. Lungs are slightly hypoexpanded but clear. No focal opacity, pleural effusion, or pneumothorax. No acute osseous abnormality. IMPRESSION:No acute cardiopulmonary abnormality. Electronically signed by: Leslye Resendiz MD (09/06/2019 11:46 AM) [id number] DICTATED and SIGNED BY: LESLYE RESENDIZ MD DATE: 09/06/19 1146 Impression: Concern for atraumatic left hip pain, likely DJD, consider bursitis, cannot bear weight. U/A contaminated, abx started in ed. Will admit for pt/ot - to consider rehab. Pt agrees with these plans and is stable at time of admission. Course & Med Decision Making: Course & Med Decision Making Pertinent Labs and Imaging studies reviewed. (See chart for details) [] Dragon Disclaimer: Dragon Disclaimer: This electronic medical record was generated, in whole or in part, using a voice recognition dictation system. Departure Departure Impression: Primary Impression: Left hip pain Additional Impressions: Encounter for rehabilitation evaluation Microcytic anemia CKD (chronic kidney disease) DJD (degenerative joint disease) of pelvis Disposition: ADMITTED INPATIENT Admitting Physician: [facility] Referrals: HARPREET ZAMORA MD (PCP) Justicifation of Admission Dx: Justifications for Admission: Justification of Admission Dx: Comment: (left hip pain, nonweight bearing, for rehab) RUIZ MARCELO DO Sep 06, 2019 08:13
[2019-09-06] MEDS ORDERED: cefTRIAXone IV Push 1 GM VIAL. IVP ONE (08:15)
[2019-09-06 08:16] LABS: BILIRUBIN,URINE NEGATIVE (NEG); CLARITY,URINE TURBID; COLOR,URINE YELLOW; NITRITE,URINE NEGATIVE (NEG); PROTEIN,URINE 30 mg/dL (NEG-TRACE); UROBILINOGEN,URINE 0.2 mg/dL (0.2 mg/dL)
[2019-09-06 08:19] LABS: BASO % 1 % (0-3); EOS # 0.3 x10^3/uL (0.0-0.7); EOS % 4 % (0-3); HEMATOCRIT 23.7 % (36.0-47.0); HEMOGLOBIN 7.1 g/dL (12.0-15.5); LYMPH # 1.2 x10^3/uL (1.0-4.8); LYMPH % 18 % (24-48); MEAN CORPUSCULAR HEMOGLOBIN 23 pg (25-35); MEAN CORPUSCULAR HGB CONC 30 g/dL (31-37); MEAN CORPUSCULAR VOLUME 77 fL (79-100); MONO # 0.5 x10^3/uL (0.0-1.1); MONO % 8 % (0-9); NEUT # 4.6 x10^3/uL (1.8-7.7); NEUT % 70 % (31-73); PLATELET COUNT 410 x10^3/uL (140-400); RED BLOOD COUNT 3.07 x10^6/uL (3.50-5.40); RED CELL DISTRIBUTION WIDTH 21.7 % (11.5-14.5); WHITE BLOOD COUNT 6.6 x10^3/uL (4.0-11.0)
[2019-09-06 08:26] LABS: CALCIUM 8.6 mg/dL (8.5-10.1); CREATININE 1.9 mg/dL (0.6-1.0); GFR 25.6; POTASSIUM 4.4 mmol/L (3.5-5.1)
[2019-09-06 08:27] LABS: WBC,URINE >40 /HPF (0-4)
[2019-09-06 08:28] LABS: BACTERIA,URINE 0 /HPF (0-FEW); SQUAMOUS EPITHELIAL CELL,UR FEW /LPF
[2019-09-06 08:32] LABS: ALBUMIN 2.8 g/dL (3.4-5.0); ALBUMIN/GLOBULIN RATIO 0.8 (1.0-1.7); TOTAL BILIRUBIN 0.3 mg/dL (0.2-1.0); TOTAL PROTEIN 6.5 g/dL (6.4-8.2)
--- NOTE | 2019-09-06 08:33 | RAD ---
HIP LEFT 2V WITH PELVIS History: Reason: left hip pain, no injury / Spl. Instructions: / History: Technique: AP view the pelvis and 2 additional views of the left hip. Comparison: December 24, 2018 Findings: Normal alignment. No fracture. Lower lumbar spondylosis. Mild bilateral hip DJD. Impression: 1. No acute osseous abnormality. 2. Mild bilateral hip DJD. Electronically signed by: Camden Wheeler DO (09/06/2019 8:30 AM) [id number]
[2019-09-06 09:34] LABS: ANISOCYTOSIS MOD; HYPOCHROMIA SLIGHT; OVALOCYTES OCC; PLT ESTIMATE INCREASED (ADEQUATE)
--- NOTE | 2019-09-06 11:27 | PDOC1 ---
History and Physical Date of Admission Date of Admission DATE: 09/06/19 TIME: 11:24 Identification/Chief Complaint Chief Complaint Weakness Source Source: Chart review, Patient History of Present Illness History of Present Illness Ms Cheng is a 79yo F w/ PMHx Diabetes-Type II, DVT, High Cholesterol, Hypertension, PE, lymphedema, morbid obesity, presents to the ED with atraumatic severe left hip pain for the past 3 days. Presented the ER complaining of progressive left lateral hip pain. Pain is been progressive over the last week. A few weeks ago she noted dysuria and pain on urination and was a scared to call her primary care doctor because she did not want to pay for an antibiotic. She feels like this may have resolved, but now her hip pain has crept up on her. In ED noted with Hb 7.1, CR 1.9. Left hip x- ray with DJD, she did have fairly extensive work-up in the fall 2018 and senior care time for rehabilitation. States she ambulates with a cane and is having difficulty bearing weight at home-cannot care for herself. On ROS her right calf is much more swollen that the left. Past Medical History Cardiovascular: AFIB, HTN, Hyperlipidemia Pulmonary: Pulmonary embolus, Other CENTRAL NERVOUS SYSTEM: Other GI: GI bleed, Other Heme/Onc: Anemia NOS Hepatobiliary: No pertinent hx Psych: No pertinent hx Musculoskeletal: low back pain, Osteoarthritis Rheumatologic: No pertinent hx Infectious disease: No pertinent hx Renal/: Chronic renal insuff Endocrine: Diabetes, Other Past Surgical History Past Surgical History: Cataract Removal, Tonsillectomy, Other Family History Family History: Cancer, Other Social History Smoke: No ALCOHOL: none Drugs: None Current Medications Current Medications Current Medications Ceftriaxone Sodium (Rocephin) 1 gm 1X ONCE IVP Last administered on 09/06/19at 09:40; Start 09/06/19 at 08:15; Stop 09/06/19 at 08:16; Status DC Active Scripts Active Prednisone (Prednisone) 10 Mg Tablet 10 Mg PO UD Take 5 tablets by mouth daily for 2 days, then take 4 tablets by mouth daily for 2 days, then take 3 tablets by mouth daily for 2 days, then take 2 tablets by mouth daily for 2 days, then take 1 tablets by mouth daily for 2 days, then stop. Keflex (Cephalexin) 500 Mg Capsule 2 Cap PO TID Lantus (Insulin Glargine,Hum.rec.anlog) 100 Unit/1 Ml Vial 20 Unit SQ BID 30 Days Voltaren (Diclofenac Sodium) 100 Gm Gel..gram. 1 [place] TP BID 14 Days Methocarbamol 750 Mg Tablet 750 Mg PO PRN Q8HRS PRN 14 Days Coumadin (Warfarin Sodium) 7.5 Mg Tablet 7.5 Mg PO DAILY16 30 Days Ferrous Sulfate 325 Mg Tablet 1 Tab PO DAILY Cozaar (Losartan Potassium) 25 Mg Tablet 25 Mg PO DAILY Diltiazem 24HR Cd (Diltiazem Hcl) 120 Mg Cap.er.24h 120 Mg PO DAILY Reported Vitamin D2 (Ergocalciferol (Vitamin D2)) 50,000 Unit Capsule 1 Cap PO WEEKLY Furosemide 40 Mg Tablet 1 Tab PO DAILY [novolin R] 25 Units SQ TIDAC Potassium Chloride 10 Meq Tablet.er 10 Meq PO BID Pantoprazole Sodium (Pantoprazole Sodium) 40 Mg Tablet.dr 1 Tab PO DAILY Atorvastatin Calcium 40 Mg Tablet 1 Tab PO QHS Allopurinol 300 Mg Tablet 1 Tab PO DAILY Allergies Allergies: Coded Allergies: No Known Drug Allergies (Unverified , 10/24/17) ROS General: YES: Fatigue, Malaise; No: Chills, Night Sweats, Appetite, Other PSYCHOLOGICAL ROS: No: Anxiety, Behavioral Disorder, Concentration difficultie, Decreased libido, Depression, Disorientation, Hallucinations, Hostility, Irritablity, Memory difficulties, Mood Swings, Obsessive thoughts, Physical abuse, Sexual abuse, Sleep disturbances, Suicidal ideation, Other Eyes: No Blurry vision, No Decreased vision, No Double vision, No Dry eyes, No Excessive tearing, No Eye Pain, No Itchy Eyes, No Loss of vision, No Photophobia, No Scotomata, No Uses contacts, No Uses glasses, No Other HEENT: No: Heacaches, Visual Changes, Hearing change, Nasal congestion, Nasal discharge, Oral lesions, Sinus pain, Sore Throat, Epistaxis, Sneezing, Snoring, Tinnitus, Vertigo, Vocal changes, Other ALLERGY AND IMMUNOLOGY: No: Hives, Insect Bite Sensitivity, Itchy/Watery Eyes, Nasal Congestion, Post Nasal Drip, Seasonal Allergies, Other Hematological and Lymphatic: No: Bleeding Problems, Blood Clots, Blood Transfusions, Brusing, Night Sweats, Pallor, Swollen Lymph Nodes, Other ENDOCRINE: No: Breast Changes, Galactorrhea, Hair Pattern Changes, Hot Flashes, Malaise/lethargy, Mood Swings, Palpitations, Polydipsia/polyuria, Skin Changes, Temperature Intolerance, Unexpected Weight Changes, Other Breast: No New/Changing Breast Lumps, No Nipple changes, No Nipple discharge, No Other Respiratory: No: Cough, Hemoptysis, Orthopnea, Pleuritic Pain, Shortness of breath, SOB with excertion, Sputum Changes, Stridor, Tachypnea, Wheezing, Other Cardiovascular: yes Orthopnea, yes Edema; No Chest Pain, No Palpitations, No Paroxysmal Noc. Dyspnea, No Lt Headedness, No Other Gastrointestinal: No Nausea, No Vomiting, No Abdominal Pain, No Diarrhea, No Constipation, No Melena, No Hematochezia, No Other Genitourinary: No Dysuria, No Frequency, No Incontinence, No Hematuria, No Retention, No Discharge, No Urgency, No Pain, No Flank Pain, No Other, No , No , No , No , No , No , No Musculoskeletal: No Gait Disturbance, No Joint Pain, No Joint Stiffness, No Joint Swelling, No Muscle Pain, No Muscular Weakness, No Pain In:, No Swelling In:, No Other Neurological: No Behavorial Changes, No Bowel/Bladder ControlChng, No Confusion, No Dizziness, No Gait Disturbance, No Headaches, No Impaired Coord/balance, No Memory Loss, No Numbness/Tingling, No Seizures, No Speech Problems, No Tremors, No Visual Changes, No Weakness, No Other Skin: Yes Dry Skin, Yes Eczema; No Hair Changes, No Lumps, No Mole Changes, No Mottling, No Nail Changes, No Pruritus, No Rash, No Skin Lesion Changes, No Other, No Acne Physical Exam General: Alert, Oriented X3, Cooperative, No acute distress HEENT: Atraumatic, PERRLA, EOMI, Mucous membr. moist/pink Lungs: Clear to auscultation, Normal air movement Heart: S1S2, RRR, no thrills, no rubs Abdomen: Normal bowel sounds, Soft, No tenderness, No hepatosplenomegaly, No masses Rectal Exam: not examined Extremities: No clubbing, No cyanosis, Other (Bilateral edema, right calf > left calf) Skin: No breakdown, Other (Venous stasis dermatitis, xerosis bilaterally) Neuro: Normal speech, Strength at 5/5 X4 ext, Normal tone, Sensation intact, Cranial nerves 3-12 NL, Reflexes 2+, Other (left lateral hip pain, no pain on internal or external rotation. Pain on weight bearing) Psych/Mental Status: Mental status NL, Mood NL Vitals Vitals Vital Signs Date Time Temp Pulse Resp B/P (MAP) Pulse Ox O2 Delivery O2 Flow Rate FiO2 09/06/19 10:37 92 122/62 (82) 99 Room Air 09/06/19 07:32 98.8 22 98.8 Labs Labs Laboratory Tests Test 09/06/19 08:00 White Blood Count 6.6 x10^3/uL (4.0-11.0) Red Blood Count 3.07 x10^6/uL (3.50-5.40) Hemoglobin 7.1 g/dL (12.0-15.5) Hematocrit 23.7 % (36.0-47.0) Mean Corpuscular Volume 77 fL (79-100) Mean Corpuscular Hemoglobin 23 pg (25-35) Mean Corpuscular Hemoglobin Concent 30 g/dL (31-37) Red Cell Distribution Width 21.7 % (11.5-14.5) Platelet Count 410 x10^3/uL (140-400) Neutrophils (%) (Auto) 70 % (31-73) Lymphocytes (%) (Auto) 18 % (24-48) Monocytes (%) (Auto) 8 % (0-9) Eosinophils (%) (Auto) 4 % (0-3) Basophils (%) (Auto) 1 % (0-3) Neutrophils # (Auto) 4.6 x10^3/uL (1.8-7.7) Lymphocytes # (Auto) 1.2 x10^3/uL (1.0-4.8) Monocytes # (Auto) 0.5 x10^3/uL (0.0-1.1) Eosinophils # (Auto) 0.3 x10^3/uL (0.0-0.7) Basophils # (Auto) 0.0 x10^3/uL (0.0-0.2) Platelet Estimate Increased (ADEQUATE) Hypochromasia Slight Anisocytosis Mod Ovalocytes Occ Urine Collection Type Unknown Urine Color Yellow Urine Clarity Turbid Urine pH 5.0 (<5.0-8.0) Urine Specific [place] 1.020 (1.000-1.030) Urine Protein 30 mg/dL (NEG-TRACE) Urine Glucose (UA) Negative mg/dL (NEG) Urine Ketones (Stick) Negative mg/dL (NEG) Urine Blood Small (NEG) Urine Nitrite Negative (NEG) Urine Bilirubin Negative (NEG) Urine Urobilinogen Dipstick 0.2 mg/dL (0.2 mg/dL) Urine Leukocyte Esterase Large (NEG) Urine RBC 3-5 /HPF (0-2) Urine WBC >40 /HPF (0-4) Urine Squamous Epithelial Cells Few /LPF Urine Bacteria 0 /HPF (0-FEW) Sodium Level 141 mmol/L (136-145) Potassium Level 4.4 mmol/L (3.5-5.1) Chloride Level 106 mmol/L (98-107) Carbon Dioxide Level 21 mmol/L (21-32) Anion Gap 14 (6-14) Blood Urea Nitrogen 43 mg/dL (7-20) Creatinine 1.9 mg/dL (0.6-1.0) Estimated GFR (Cockcroft-Gault) 25.6 BUN/Creatinine Ratio 23 (6-20) Glucose Level 200 mg/dL (70-99) Calcium Level 8.6 mg/dL (8.5-10.1) Total Bilirubin 0.3 mg/dL (0.2-1.0) Aspartate Amino Transf (AST/SGOT) 13 U/L (15-37) Alanine Aminotransferase (ALT/SGPT) 9 U/L (14-59) Alkaline Phosphatase 90 U/L (46-116) Total Protein 6.5 g/dL (6.4-8.2) Albumin 2.8 g/dL (3.4-5.0) Albumin/Globulin Ratio 0.8 (1.0-1.7) Laboratory Tests Test 09/06/19 08:00 White Blood Count 6.6 x10^3/uL (4.0-11.0) Red Blood Count 3.07 x10^6/uL (3.50-5.40) Hemoglobin 7.1 g/dL (12.0-15.5) Hematocrit 23.7 % (36.0-47.0) Mean Corpuscular Volume 77 fL (79-100) Mean Corpuscular Hemoglobin 23 pg (25-35) Mean Corpuscular Hemoglobin Concent 30 g/dL (31-37) Red Cell Distribution Width 21.7 % (11.5-14.5) Platelet Count 410 x10^3/uL (140-400) Neutrophils (%) (Auto) 70 % (31-73) Lymphocytes (%) (Auto) 18 % (24-48) Monocytes (%) (Auto) 8 % (0-9) Eosinophils (%) (Auto) 4 % (0-3) Basophils (%) (Auto) 1 % (0-3) Neutrophils # (Auto) 4.6 x10^3/uL (1.8-7.7) Lymphocytes # (Auto) 1.2 x10^3/uL (1.0-4.8) Monocytes # (Auto) 0.5 x10^3/uL (0.0-1.1) Eosinophils # (Auto) 0.3 x10^3/uL (0.0-0.7) Basophils # (Auto) 0.0 x10^3/uL (0.0-0.2) Platelet Estimate Increased (ADEQUATE) Hypochromasia Slight Anisocytosis Mod Ovalocytes Occ Urine Collection Type Unknown Urine Color Yellow Urine Clarity Turbid Urine pH 5.0 (<5.0-8.0) Urine Specific [place] 1.020 (1.000-1.030) Urine Protein 30 mg/dL (NEG-TRACE) Urine Glucose (UA) Negative mg/dL (NEG) Urine Ketones (Stick) Negative mg/dL (NEG) Urine Blood Small (NEG) Urine Nitrite Negative (NEG) Urine Bilirubin Negative (NEG) Urine Urobilinogen Dipstick 0.2 mg/dL (0.2 mg/dL) Urine Leukocyte Esterase Large (NEG) Urine RBC 3-5 /HPF (0-2) Urine WBC >40 /HPF (0-4) Urine Squamous Epithelial Cells Few /LPF Urine Bacteria 0 /HPF (0-FEW) Sodium Level 141 mmol/L (136-145) Potassium Level 4.4 mmol/L (3.5-5.1) Chloride Level 106 mmol/L (98-107) Carbon Dioxide Level 21 mmol/L (21-32) Anion Gap 14 (6-14) Blood Urea Nitrogen 43 mg/dL (7-20) Creatinine 1.9 mg/dL (0.6-1.0) Estimated GFR (Cockcroft-Gault) 25.6 BUN/Creatinine Ratio 23 (6-20) Glucose Level 200 mg/dL (70-99) Calcium Level 8.6 mg/dL (8.5-10.1) Total Bilirubin 0.3 mg/dL (0.2-1.0) Aspartate Amino Transf (AST/SGOT) 13 U/L (15-37) Alanine Aminotransferase (ALT/SGPT) 9 U/L (14-59) Alkaline Phosphatase 90 U/L (46-116) Total Protein 6.5 g/dL (6.4-8.2) Albumin 2.8 g/dL (3.4-5.0) Albumin/Globulin Ratio 0.8 (1.0-1.7) Images Images Lef Hip XR: Normal alignment. No fracture. Lower lumbar spondylosis. Mild bilateral hip DJD. Impression: 1. No acute osseous abnormality. 2. Mild bilateral hip DJD. CXR: The heart and mediastinum are normal. Lungs are slightly hypoexpanded but clear. No focal opacity, pleural effusion, or pneumothorax. No acute osseous abnormality. IMPRESSION:No acute cardiopulmonary abnormality. VTE Prophylaxis Ordered VTE Prophylaxis Devices: No VTE Pharmacological Prophylaxi: Yes Assessment/Plan Assessment/Plan A/P: Left hip pain -appears to be osteoarthritis with DJD on x-ray. Will have PT evaluate and PMR physician recommendations. Right calf pain - with DVT/PE history we will repeat venous Dopplers as her INR subtherapeutic Lymphedema - chronic, will have OT evaluate once assessed for DVT Acute anemia -possibly of CKD. On chronic iron denies any GI losses will check iron stores transfuse for Hb less than 7 Morbid obesity -counseled on diet weight loss. Hypertension - continue home meds Paroxsymal afib - noted in [facility] in 2017, has been sinus since. On coumadin, rate controlled Urinary tract infection - with positive excite esterase, negative nitrates, will give empiric Rocephin BOBBY on CKD - Cr 1.9 from 1.3 last check. FEN - Renal diet PPX - warfarin FULL CODE Dispo - inpatient for above Justicifation of Admission Dx: Justifications for Admission: Justification of Admission Dx: Yes Chronic Renal Failure: Renail Failure LAURIE GIBSON MD Sep 06, 2019 11:27
--- NOTE | 2019-09-06 11:49 | RAD ---
EXAM: CHEST AP ONLY 09/06/2019 11:20 AM CLINICAL INDICATION:Admit COMPARISON:Chest radiograph 02/16/2018 TECHNIQUE:AP upright view of the chest FINDINGS:The heart and mediastinum are normal. Lungs are slightly hypoexpanded but clear. No focal opacity, pleural effusion, or pneumothorax. No acute osseous abnormality. IMPRESSION:No acute cardiopulmonary abnormality. Electronically signed by: Leslye Resendiz MD (09/06/2019 11:46 AM) [id number]
[2019-09-06 13:00] VITALS: BP 135/61
[2019-09-06] MEDS ORDERED: DEXTROSE 50% 25 GM / 50ML DISP.SYRIN. IV PRN (14:00)
--- NOTE | 2019-09-06 14:36 | EKG ---
[facility] [address] [place] [address] Test Date: 2019-09-06 Test Time: 11:43:58 Pat Name: MERRICK ARRIAGA Department: Room: 444 Gender: F Quarter Section Ironer: : 1940 Requested By: LAURIE GIBSON Order Number: [id number] Reading MD: Philippe Ferraro Measurements Intervals [place] Rate: 90 P: 31 MA: 246 QRS: 21 QRSD: 78 T: 24 QT: 356 QTc: 440 Interpretive Statements SINUS RHYTHM PROLONGED MA INTERVAL QRS(T) CONTOUR ABNORMALITY CONSIDER ANTEROLATERAL MYOCARDIAL DAMAGE Electronically Signed On 09-10-2019 16:00:40 CDT by Philippe Ferraro
[2019-09-06 14:48] LABS: PROTHROMBIN TIME PATIENT 16.1 SEC (11.7-14.0)
[2019-09-06] MEDS: INSULIN LISPRO 300 UNITS/3 ML VIAL. SQ SCH ×2 (16:30→21:46)
[2019-09-06] MEDS: WARFARIN 7.5 MG TABLET. PO SCH (17:31)
--- NOTE | 2019-09-06 18:39 | RAD ---
Exam: Bilateral lower extremity venous duplex study INDICATION: Leg swelling TECHNIQUE: Using a combination of real-time ultrasound imaging and color-flow and pulse Doppler imaging techniques along with graded compression and augmentation, duplex evaluation of the deep venous systems of bilateral lower extremity was performed. Multiple images were obtained. Findings: There is no sonographic evidence for deep venous thrombosis involving the visualized deep venous structures of the bilateral lower extremity. IMPRESSION: No acute DVT in the bilateral lower extremities. Electronically signed by: Kofi Alonzo MD (09/06/2019 6:36 PM) [id number]
[2019-09-06 19:00] VITALS: BP 146/55
[2019-09-06 20:59] LABS: FECAL OB PT NEGATIVE (NEG)
[2019-09-06] MEDS: DICLOFENAC SODIUM 1% TOPICAL GEL 100GM TUBE. TP SCH (21:37)
[2019-09-06] MEDS: ATORVASTATIN CALCIUM 40 MG TABLET. PO SCH (21:37)
[2019-09-06] MEDS: INSULIN GLARGINE SYRINGE. SQ SCH (21:38)
[2019-09-06 23:00] VITALS: BP 143/56
[2019-09-07 03:00] VITALS: BP 143/65
[2019-09-07 04:34] LABS: BASO % 1 % (0-3); EOS # 0.4 x10^3/uL (0.0-0.7); EOS % 6 % (0-3); HEMATOCRIT 22.4 % (36.0-47.0); LYMPH % 18 % (24-48); MEAN CORPUSCULAR HEMOGLOBIN 24 pg (25-35); MEAN CORPUSCULAR HGB CONC 31 g/dL (31-37); MEAN CORPUSCULAR VOLUME 77 fL (79-100); MONO # 0.5 x10^3/uL (0.0-1.1); MONO % 8 % (0-9); NEUT # 3.9 x10^3/uL (1.8-7.7); NEUT % 67 % (31-73); PLATELET COUNT 400 x10^3/uL (140-400); RED CELL DISTRIBUTION WIDTH 21.5 % (11.5-14.5); WHITE BLOOD COUNT 5.8 x10^3/uL (4.0-11.0)
[2019-09-07 04:40] LABS: PROTHROMBIN TIME PATIENT 15.3 SEC (11.7-14.0)
[2019-09-07 04:57] LABS: CALCIUM 8.4 mg/dL (8.5-10.1); CREATININE 1.6 mg/dL (0.6-1.0); GFR 31.2; POTASSIUM 4.3 mmol/L (3.5-5.1)
[2019-09-07 07:15] VITALS: BP 139/61
[2019-09-07] MEDS: INSULIN LISPRO 300 UNITS/3 ML VIAL. SQ SCH ×4 (07:30→21:16)
[2019-09-07] MEDS: cefTRIAXone IV Push 1 GM VIAL. IVP SCH (09:12)
[2019-09-07] MEDS: ALLOPURINOL 100 MG TABLET. PO SCH (09:12)
[2019-09-07] MEDS: FERROUS SULFATE 325 MG TABLET. PO SCH (09:12)
[2019-09-07] MEDS: PANTOPRAZOLE 40 MG TABLET.DR. PO SCH (09:12)
[2019-09-07] MEDS: DICLOFENAC SODIUM 1% TOPICAL GEL 100GM TUBE. TP SCH ×2 (09:13→21:16)
[2019-09-07] MEDS: INSULIN GLARGINE SYRINGE. SQ SCH ×2 (09:19→21:16)
[2019-09-07] MEDS ORDERED: methylPREDNISolone ACETATE 40 MG/ML VIAL. IM ONE (10:00)
[2019-09-07] MEDS ORDERED: BUPIVACAINE MPF 0.25% 10 ML VIAL. IJ ONE (10:00)
[2019-09-07 10:27] VITALS: BP 150/42
--- NOTE | 2019-09-07 11:13 | PDOC ---
PROGRESS NOTES Chief Complaint Chief Complaint Left hip pain -appears to be osteoarthritis with DJD on x-ray. Will have PT evaluate and PMR physician recommendations. Right calf pain - negative for DVT PE history more or less one year ago Lymphedema - chronic, will have OT evaluate once assessed for DVT Acute anemia -possibly of CKD. On chronic iron denies any GI losses will check iron stores transfuse for Hb less than 7 Morbid obesity -counseled on diet weight loss. Hypertension - continue home meds Paroxsymal afib - noted in [facility] in 2017, has been sinus since. On coumadin, rate controlled Urinary tract infection - with positive excite esterase, negative nitrates, will give empiric Rocephin BOBBY on CKD - Cr 1.9 from 1.3 last check. FEN - Renal diet PPX - warfarin FULL CODE Dispo - inpatient for above Further recommendations based on clinical course. History of Present Illness History of Present Illness 09/07/2019: Discussed results of imaging studies and explained plan of care in detail no new concerns were voiced during my visit. No acute events reported o vernight, case discussed with nursing staff patient in no acute distress no complaints during my visit Vitals Vitals Vital Signs Date Time Temp Pulse Resp B/P (MAP) Pulse Ox O2 Delivery O2 Flow Rate FiO2 09/07/19 10:27 97.6 87 20 150/42 (78) 96 Room Air 97.6 Physical Exam General: Alert, Oriented X3, Cooperative, No acute distress Lungs: Clear Abdomen: Normal bowel sounds, Soft, No tenderness, No hepatosplenomegaly, No masses Extremities: No clubbing, No cyanosis, Other (Bilateral edema, right calf > left calf) Skin: No breakdown, Other (Venous stasis dermatitis, xerosis bilaterally) Labs LABS Laboratory Tests Test 09/06/19 14:00 09/06/19 16:49 09/06/19 20:40 09/06/19 20:47 Prothrombin Time 16.1 SEC (11.7-14.0) Prothromb Time International Ratio 1.3 (0.8-1.1) Glucose (Fingerstick) 146 mg/dL (70-99) 203 mg/dL (70-99) Stool Occult Blood Negative (NEG) Test 09/07/19 04:05 09/07/19 07:11 White Blood Count 5.8 x10^3/uL (4.0-11.0) Red Blood Count 2.90 x10^6/uL (3.50-5.40) Hemoglobin 7.0 g/dL (12.0-15.5) Hematocrit 22.4 % (36.0-47.0) Mean Corpuscular Volume 77 fL (79-100) Mean Corpuscular Hemoglobin 24 pg (25-35) Mean Corpuscular Hemoglobin Concent 31 g/dL (31-37) Red Cell Distribution Width 21.5 % (11.5-14.5) Platelet Count 400 x10^3/uL (140-400) Neutrophils (%) (Auto) 67 % (31-73) Lymphocytes (%) (Auto) 18 % (24-48) Monocytes (%) (Auto) 8 % (0-9) Eosinophils (%) (Auto) 6 % (0-3) Basophils (%) (Auto) 1 % (0-3) Neutrophils # (Auto) 3.9 x10^3/uL (1.8-7.7) Lymphocytes # (Auto) 1.0 x10^3/uL (1.0-4.8) Monocytes # (Auto) 0.5 x10^3/uL (0.0-1.1) Eosinophils # (Auto) 0.4 x10^3/uL (0.0-0.7) Basophils # (Auto) 0.0 x10^3/uL (0.0-0.2) Prothrombin Time 15.3 SEC (11.7-14.0) Prothromb Time International Ratio 1.3 (0.8-1.1) Sodium Level 138 mmol/L (136-145) Potassium Level 4.3 mmol/L (3.5-5.1) Chloride Level 105 mmol/L (98-107) Carbon Dioxide Level 23 mmol/L (21-32) Anion Gap 10 (6-14) Blood Urea Nitrogen 32 mg/dL (7-20) Creatinine 1.6 mg/dL (0.6-1.0) Estimated GFR (Cockcroft-Gault) 31.2 Glucose Level 128 mg/dL (70-99) Calcium Level 8.4 mg/dL (8.5-10.1) Glucose (Fingerstick) 120 mg/dL (70-99) Review of Systems Review of Systems Pertinent as per HPI otherwise 10 point review of system is negative Assessment and Plan Assessmemt and Plan Problems Medical Problems: (1) CKD (chronic kidney disease) Status: Acute (2) DJD (degenerative joint disease) of pelvis Status: Acute (3) Encounter for rehabilitation evaluation Status: Acute (4) Microcytic anemia Status: Acute Comment Review of Relevant I have reviewed the following items edis (where applicable) has been applied. Labs Laboratory Tests Test 09/06/19 08:00 09/06/19 14:00 09/06/19 16:49 09/06/19 20:40 White Blood Count 6.6 x10^3/uL (4.0-11.0) Red Blood Count 3.07 x10^6/uL (3.50-5.40) Hemoglobin 7.1 g/dL (12.0-15.5) Hematocrit 23.7 % (36.0-47.0) Mean Corpuscular Volume 77 fL (79-100) Mean Corpuscular Hemoglobin 23 pg (25-35) Mean Corpuscular Hemoglobin Concent 30 g/dL (31-37) Red Cell Distribution Width 21.7 % (11.5-14.5) Platelet Count 410 x10^3/uL (140-400) Neutrophils (%) (Auto) 70 % (31-73) Lymphocytes (%) (Auto) 18 % (24-48) Monocytes (%) (Auto) 8 % (0-9) Eosinophils (%) (Auto) 4 % (0-3) Basophils (%) (Auto) 1 % (0-3) Neutrophils # (Auto) 4.6 x10^3/uL (1.8-7.7) Lymphocytes # (Auto) 1.2 x10^3/uL (1.0-4.8) Monocytes # (Auto) 0.5 x10^3/uL (0.0-1.1) Eosinophils # (Auto) 0.3 x10^3/uL (0.0-0.7) Basophils # (Auto) 0.0 x10^3/uL (0.0-0.2) Platelet Estimate Increased (ADEQUATE) Hypochromasia Slight Anisocytosis Mod Ovalocytes Occ Urine Collection Type Unknown Urine Color Yellow Urine Clarity Turbid Urine pH 5.0 (<5.0-8.0) Urine Specific [place] 1.020 (1.000-1.030) Urine Protein 30 mg/dL (NEG-TRACE) Urine Glucose (UA) Negative mg/dL (NEG) Urine Ketones (Stick) Negative mg/dL (NEG) Urine Blood Small (NEG) Urine Nitrite Negative (NEG) Urine Bilirubin Negative (NEG) Urine Urobilinogen Dipstick 0.2 mg/dL (0.2 mg/dL) Urine Leukocyte Esterase Large (NEG) Urine RBC 3-5 /HPF (0-2) Urine WBC >40 /HPF (0-4) Urine Squamous Epithelial Cells Few /LPF Urine Bacteria 0 /HPF (0-FEW) Sodium Level 141 mmol/L (136-145) Potassium Level 4.4 mmol/L (3.5-5.1) Chloride Level 106 mmol/L (98-107) Carbon Dioxide Level 21 mmol/L (21-32) Anion Gap 14 (6-14) Blood Urea Nitrogen 43 mg/dL (7-20) Creatinine 1.9 mg/dL (0.6-1.0) Estimated GFR (Cockcroft-Gault) 25.6 BUN/Creatinine Ratio 23 (6-20) Glucose Level 200 mg/dL (70-99) Calcium Level 8.6 mg/dL (8.5-10.1) Total Bilirubin 0.3 mg/dL (0.2-1.0) Aspartate Amino Transf (AST/SGOT) 13 U/L (15-37) Alanine Aminotransferase (ALT/SGPT) 9 U/L (14-59) Alkaline Phosphatase 90 U/L (46-116) Total Protein 6.5 g/dL (6.4-8.2) Albumin 2.8 g/dL (3.4-5.0) Albumin/Globulin Ratio 0.8 (1.0-1.7) Prothrombin Time 16.1 SEC (11.7-14.0) Prothromb Time International Ratio 1.3 (0.8-1.1) Glucose (Fingerstick) 146 mg/dL (70-99) Stool Occult Blood Negative (NEG) Test 09/06/19 20:47 09/07/19 04:05 09/07/19 07:11 Glucose (Fingerstick) 203 mg/dL (70-99) 120 mg/dL (70-99) White Blood Count 5.8 x10^3/uL (4.0-11.0) Red Blood Count 2.90 x10^6/uL (3.50-5.40) Hemoglobin 7.0 g/dL (12.0-15.5) Hematocrit 22.4 % (36.0-47.0) Mean Corpuscular Volume 77 fL (79-100) Mean Corpuscular Hemoglobin 24 pg (25-35) Mean Corpuscular Hemoglobin Concent 31 g/dL (31-37) Red Cell Distribution Width 21.5 % (11.5-14.5) Platelet Count 400 x10^3/uL (140-400) Neutrophils (%) (Auto) 67 % (31-73) Lymphocytes (%) (Auto) 18 % (24-48) Monocytes (%) (Auto) 8 % (0-9) Eosinophils (%) (Auto) 6 % (0-3) Basophils (%) (Auto) 1 % (0-3) Neutrophils # (Auto) 3.9 x10^3/uL (1.8-7.7) Lymphocytes # (Auto) 1.0 x10^3/uL (1.0-4.8) Monocytes # (Auto) 0.5 x10^3/uL (0.0-1.1) Eosinophils # (Auto) 0.4 x10^3/uL (0.0-0.7) Basophils # (Auto) 0.0 x10^3/uL (0.0-0.2) Prothrombin Time 15.3 SEC (11.7-14.0) Prothromb Time International Ratio 1.3 (0.8-1.1) Sodium Level 138 mmol/L (136-145) Potassium Level 4.3 mmol/L (3.5-5.1) Chloride Level 105 mmol/L (98-107) Carbon Dioxide Level 23 mmol/L (21-32) Anion Gap 10 (6-14) Blood Urea Nitrogen 32 mg/dL (7-20) Creatinine 1.6 mg/dL (0.6-1.0) Estimated GFR (Cockcroft-Gault) 31.2 Glucose Level 128 mg/dL (70-99) Calcium Level 8.4 mg/dL (8.5-10.1) Laboratory Tests Test 09/06/19 14:00 09/06/19 16:49 09/06/19 20:40 09/06/19 20:47 Prothrombin Time 16.1 SEC (11.7-14.0) Prothromb Time International Ratio 1.3 (0.8-1.1) Glucose (Fingerstick) 146 mg/dL (70-99) 203 mg/dL (70-99) Stool Occult Blood Negative (NEG) Test 09/07/19 04:05 09/07/19 07:11 White Blood Count 5.8 x10^3/uL (4.0-11.0) Red Blood Count 2.90 x10^6/uL (3.50-5.40) Hemoglobin 7.0 g/dL (12.0-15.5) Hematocrit 22.4 % (36.0-47.0) Mean Corpuscular Volume 77 fL (79-100) Mean Corpuscular Hemoglobin 24 pg (25-35) Mean Corpuscular Hemoglobin Concent 31 g/dL (31-37) Red Cell Distribution Width 21.5 % (11.5-14.5) Platelet Count 400 x10^3/uL (140-400) Neutrophils (%) (Auto) 67 % (31-73) Lymphocytes (%) (Auto) 18 % (24-48) Monocytes (%) (Auto) 8 % (0-9) Eosinophils (%) (Auto) 6 % (0-3) Basophils (%) (Auto) 1 % (0-3) Neutrophils # (Auto) 3.9 x10^3/uL (1.8-7.7) Lymphocytes # (Auto) 1.0 x10^3/uL (1.0-4.8) Monocytes # (Auto) 0.5 x10^3/uL (0.0-1.1) Eosinophils # (Auto) 0.4 x10^3/uL (0.0-0.7) Basophils # (Auto) 0.0 x10^3/uL (0.0-0.2) Prothrombin Time 15.3 SEC (11.7-14.0) Prothromb Time International Ratio 1.3 (0.8-1.1) Sodium Level 138 mmol/L (136-145) Potassium Level 4.3 mmol/L (3.5-5.1) Chloride Level 105 mmol/L (98-107) Carbon Dioxide Level 23 mmol/L (21-32) Anion Gap 10 (6-14) Blood Urea Nitrogen 32 mg/dL (7-20) Creatinine 1.6 mg/dL (0.6-1.0) Estimated GFR (Cockcroft-Gault) 31.2 Glucose Level 128 mg/dL (70-99) Calcium Level 8.4 mg/dL (8.5-10.1) Glucose (Fingerstick) 120 mg/dL (70-99) Microbiology 09/06/19 Urine Culture - Final, Complete Medications Current Medications Ceftriaxone Sodium (Rocephin) 1 gm 1X ONCE IVP Last administered on 09/06/19 09:40; Start 09/06/19 at 08:15; Stop 09/06/19 at 08:16; Status DC Ceftriaxone Sodium (Rocephin) 1 gm DAILY IVP Last administered on 09/07/19 09:12; Start 09/07/19 at 09:00 Allopurinol (Zyloprim) 100 mg DAILY PO Last administered on 09/07/19 09:12; Start 09/07/19 at 09:00 Atorvastatin Calcium (Lipitor) 40 mg QHS PO Last administered on 09/06/19 21:37; Start 09/06/19 at 21:00 Diclofenac Sodium (Voltaren) 1 [place] BID TP Last administered on 09/07/19 09:13; Start 09/06/19 at 21:00 Diltiazem HCl (Cardizem 24hr Cd) 120 mg DAILY PO Last administered on 09/07/19 09:12; Start 09/07/19 at 09:00 Ferrous Sulfate (Feosol) 325 mg DAILY PO Last administered on 09/07/19 09:12; Start 09/07/19 at 09:00 Insulin Glargine (Lantus Syringe) 20 unit BID SQ Last administered on 09/07/19 09:19; Start 09/06/19 at 21:00 Pantoprazole Sodium (Protonix) 40 mg DAILY PO Last administered on 09/07/19 09:12; Start 09/07/19 at 09:00 Warfarin Sodium (Coumadin) 7.5 mg DAILY16 PO Last administered on 09/06/19at 17:31; Start 09/06/19 at 16:00 Insulin Human Lispro (HumaLOG) 0-7 UNITS TIDACHC SQ Last administered on 09/06/19at 21:46; Start 09/06/19 at 16:30 Dextrose (Dextrose 50%-Water Syringe) 12.5 gm PRN Q15MIN PRN IV SEE COMMENTS; Start 09/06/19 at 14:00 Warfarin Sodium (Coumadin Per Physician) 1 each PRN DAILY PRN MC SEE COMMENTS; Start 09/06/19 at 15:15 Methylprednisolone Acetate (DEPO-Medrol 40MG VIAL) 40 mg 1X ONCE IM ; Start 09/07/19 at 10:00; Stop 09/07/19 at 10:01; Status DC Bupivacaine HCl (Sensorcaine-Mpf 0.25%) 10 ml 1X ONCE IJ ; Start 09/07/19 at 10:00; Stop 09/07/19 at 10:01; Status DC Active Scripts Active Prednisone (Prednisone) 10 Mg Tablet 10 Mg PO UD Take 5 tablets by mouth daily for 2 days, then take 4 tablets by mouth daily for 2 days, then take 3 tablets by mouth daily for 2 days, then take 2 tablets by mouth daily for 2 days, then take 1 tablets by mouth daily for 2 days, then stop. Keflex (Cephalexin) 500 Mg Capsule 2 Cap PO TID Lantus (Insulin Glargine,Hum.rec.anlog) 100 Unit/1 Ml Vial 20 Unit SQ BID 30 Days Voltaren (Diclofenac Sodium) 100 Gm Gel..gram. 1 [place] TP BID 14 Days Methocarbamol 750 Mg Tablet 750 Mg PO PRN Q8HRS PRN 14 Days Coumadin (Warfarin Sodium) 7.5 Mg Tablet 7.5 Mg PO DAILY16 30 Days Ferrous Sulfate 325 Mg Tablet 1 Tab PO DAILY Cozaar (Losartan Potassium) 25 Mg Tablet 25 Mg PO DAILY Diltiazem 24HR Cd (Diltiazem Hcl) 120 Mg Cap.er.24h 120 Mg PO DAILY Reported Vitamin D2 (Ergocalciferol (Vitamin D2)) 50,000 Unit Capsule 1 Cap PO WEEKLY Furosemide 40 Mg Tablet 1 Tab PO DAILY [novolin R] 25 Units SQ TIDAC Potassium Chloride 10 Meq Tablet.er 10 Meq PO BID Pantoprazole Sodium (Pantoprazole Sodium) 40 Mg Tablet.dr 1 Tab PO DAILY Atorvastatin Calcium 40 Mg Tablet 1 Tab PO QHS Allopurinol 300 Mg Tablet 1 Tab PO DAILY Vitals/I & O Vital Sign - Last 24 Hours 09/06/19 09/06/19 09/06/19 09/06/19 11:37 12:07 13:00 19:00 Temp 97.9 97.9 97.9 97.9 Pulse 91 92 92 89 Resp 18 18 B/P (MAP) 143/53 (83) 161/63 (95) 135/61 (85) 146/55 (85) Pulse Ox 99 98 99 98 O2 Delivery Room Air Room Air Room Air Room Air 09/06/19 09/06/19 09/07/19 09/07/19 20:15 23:00 03:00 07:15 Temp 98.0 98.7 97.9 98.0 98.7 97.9 Pulse 85 93 73 Resp 18 18 17 B/P (MAP) 143/56 (85) 143/65 (91) 139/61 (87) Pulse Ox 94 93 98 O2 Delivery Room Air Room Air Room Air Room Air 09/07/19 09/07/19 09:12 10:27 Temp 97.6 97.6 Pulse 73 87 Resp 20 B/P (MAP) 139/61 150/42 (78) Pulse Ox 96 O2 Delivery Room Air Intake and Output 09/06/19 09/06/19 09/07/19 15:00 23:00 07:00 Intake Total 240 ml Balance 240 ml JASON TILLEY MD Sep 07, 2019 11:13
--- NOTE | 2019-09-07 11:32 | CONS ---
DATE OF CONSULTATION: 09/07/2019 ATTENDING PHYSICIAN: Eddi Newsome MD REASON FOR CONSULTATION: The patient was seen at the request of Dr. Newsome for rehab evaluation. LOCATION: She is in room 444. HISTORY OF PRESENT ILLNESS: This is a 79-year-old female known to me in the past. The patient with diabetes mellitus type 2, deep venous thrombosis, hypercholesterolemia, hypertension, previous pulmonary emboli, lymphedema, morbid obesity, admitted through the Emergency Room with left hip pain for about 3 days. The patient denies any specific injury. X-rays revealed degenerative changes in her hips. She was also found with hemoglobin of 9.1, creatinine 1.9 and being treated for urinary tract infection. She admits some pain after she finishes urination. The patient lives at home with her sister in the basement. She had one or two steps to enter the house. She does not use any assistive devices while inside the house. ALLERGIES: The patient is not known allergic to any medication. PAST MEDICAL HISTORY: Also includes atrial fibrillation, GI bleeding, anemia, osteoarthritis, chronic lower back pain, chronic renal insufficiency. The patient is status post cataract surgery and tonsillectomy. FAMILY HISTORY: Carcinoma. PHYSICAL EXAMINATION: Today revealed an elderly female. She is alert, oriented to time, place, person and circumstance and follows commands appropriately, moves all 4 extremities voluntarily where she had 4+/5 grade muscle strength and she had absent knee and ankle jerks and she had equal perception of touch and pinprick sensation bilaterally. She had some edema and redness of skin in lower part of her legs. She had crepitus on range of motion of both knee joints. She had slightly overgrown toenails, especially big toes. She had no significant pain on range of motion of hip or knee joints or lumbar spine, tenderness to palpation over left trochanteric bursa. The patient takes some time to roll from side to side. I have not tested her transfers or ambulation skills at this time. Straight leg raising test is negative bilaterally. ASSESSMENT AND PLAN: Elderly female with degenerative joint disease of both hips, knees and chronic lower back pain without any clinical evidence of ongoing lumbar radiculopathy, presents with left trochanteric bursitis and also the patient with known lymphedema of both lower extremities, diabetes mellitus with peripheral neuropathy, morbid obesity, hypertension, hyperlipidemia, anemia, previous GI bleeding, chronic renal insufficiency, hypertension, atrial fibrillation, previous pulmonary emboli and deep venous thrombosis. RECOMMENDATIONS: At her request, I have injected painful left trochanteric bursa under aseptic skin technique after skin prepped and using alcohol swab using 1 mL of Depo-Medrol 40 mg per 1 mL solution mixed with Marcaine 0.25% solution 2 mL and she tolerated the procedure satisfactorily without any side effects to try ice packs, to get her up as tolerated, home with home health followup when medically stable. Dr. Newsome, appreciate asking me to participate in the care of this interesting patient. I will be glad to see her for followup with you on as-needed basis. MAAME BYRNES MD DR: VINCE/roge JOB#: [id number] / [id number]
--- NOTE | 2019-09-07 12:38 | PDOC2 ---
CONSULT Date of Consult Date of Consult DATE: 09/07/19 TIME: 12:35 Reason for Consult Reason for Consult: symptomatic nails Referring Physician Referring Physician: Dajuan Identification/Chief Complaint Chief Complaint symptomatic nails Source Source: Chart review, Patient History of Present Illness Reason for Visit: 79 year old female with DM admitted for hip pain also with long symptomatic toenails. She is well known to our clinic. She also relates to chronic lymphedema. Patient also complaining of difficulty affording her medications, food, and paying bills living on social security alone. Past Medical History Cardiovascular: AFIB, HTN, Hyperlipidemia Pulmonary: Pulmonary embolus, Other CENTRAL NERVOUS SYSTEM: Other GI: GI bleed, Other Heme/Onc: Anemia NOS Hepatobiliary: No pertinent hx Psych: No pertinent hx Musculoskeletal: low back pain, Osteoarthritis Rheumatologic: No pertinent hx Infectious disease: No pertinent hx Renal/: Chronic renal insuff Endocrine: Diabetes, Other Past Surgical History Past Surgical History: Cataract Removal, Tonsillectomy, Other Family History Family History: Cancer, Other Social History No ALCOHOL: none Drugs: None Current Problem List Problem List Problems Medical Problems: (1) CKD (chronic kidney disease) Status: Acute (2) DJD (degenerative joint disease) of pelvis Status: Acute (3) Encounter for rehabilitation evaluation Status: Acute (4) Microcytic anemia Status: Acute Current Medications Current Medications Current Medications Ceftriaxone Sodium (Rocephin) 1 gm 1X ONCE IVP Last administered on 09/06/19at 09:40; Start 09/06/19 at 08:15; Stop 09/06/19 at 08:16; Status DC Ceftriaxone Sodium (Rocephin) 1 gm DAILY IVP Last administered on 09/07/19at 09:12; Start 09/07/19 at 09:00 Allopurinol (Zyloprim) 100 mg DAILY PO Last administered on 09/07/19at 09:12; Start 09/07/19 at 09:00 Atorvastatin Calcium (Lipitor) 40 mg QHS PO Last administered on 09/06/19at 21:37; Start 09/06/19 at 21:00 Diclofenac Sodium (Voltaren) 1 laurel BID TP Last administered on 09/07/19at 09:13; Start 09/06/19 at 21:00 Diltiazem HCl (Cardizem 24hr ) 120 mg DAILY PO Last administered on 09/07/19at 09:12; Start 09/07/19 at 09:00 Ferrous Sulfate (Feosol) 325 mg DAILY PO Last administered on 09/07/19at 09:12; Start 09/07/19 at 09:00 Insulin Glargine (Lantus Syringe) 20 unit BID SQ Last administered on 09/07/19at 09:19; Start 09/06/19 at 21:00 Pantoprazole Sodium (Protonix) 40 mg DAILY PO Last administered on 09/07/19at 09:12; Start 09/07/19 at 09:00 Warfarin Sodium (Coumadin) 7.5 mg DAILY16 PO Last administered on 09/06/19at 17:31; Start 09/06/19 at 16:00 Insulin Human Lispro (HumaLOG) 0-7 UNITS TIDACHC SQ Last administered on 09/07/19at 12:32; Start 09/06/19 at 16:30 Dextrose (Dextrose 50%-Water Syringe) 12.5 gm PRN Q15MIN PRN IV SEE COMMENTS; Start 09/06/19 at 14:00 Warfarin Sodium (Coumadin Per Physician) 1 each PRN DAILY PRN MC SEE COMMENTS; Start 09/06/19 at 15:15 Methylprednisolone Acetate (DEPO-Medrol 40MG VIAL) 40 mg 1X ONCE IM ; Start 09/07/19 at 10:00; Stop 09/07/19 at 10:01; Status DC Bupivacaine HCl (Sensorcaine-Mpf 0.25%) 10 ml 1X ONCE IJ ; Start 09/07/19 at 10:00; Stop 09/07/19 at 10:01; Status DC Active Scripts Active Prednisone (Prednisone) 10 Mg Tablet 10 Mg PO UD Take 5 tablets by mouth daily for 2 days, then take 4 tablets by mouth daily for 2 days, then take 3 tablets by mouth daily for 2 days, then take 2 tablets by mouth daily for 2 days, then take 1 tablets by mouth daily for 2 days, then stop. Keflex (Cephalexin) 500 Mg Capsule 2 Cap PO TID Lantus (Insulin Glargine,Hum.rec.anlog) 100 Unit/1 Ml Vial 20 Unit SQ BID 30 Days Voltaren (Diclofenac Sodium) 100 Gm Gel..gram. 1 Laurel TP BID 14 Days Methocarbamol 750 Mg Tablet 750 Mg PO PRN Q8HRS PRN 14 Days Coumadin (Warfarin Sodium) 7.5 Mg Tablet 7.5 Mg PO DAILY16 30 Days Ferrous Sulfate 325 Mg Tablet 1 Tab PO DAILY Cozaar (Losartan Potassium) 25 Mg Tablet 25 Mg PO DAILY Diltiazem 24HR Cd (Diltiazem Hcl) 120 Mg Cap.er.24h 120 Mg PO DAILY Reported Vitamin D2 (Ergocalciferol (Vitamin D2)) 50,000 Unit Capsule 1 Cap PO WEEKLY Furosemide 40 Mg Tablet 1 Tab PO DAILY [novolin R] 25 Units SQ TIDAC Potassium Chloride 10 Meq Tablet.er 10 Meq PO BID Pantoprazole Sodium (Pantoprazole Sodium) 40 Mg Tablet.dr 1 Tab PO DAILY Atorvastatin Calcium 40 Mg Tablet 1 Tab PO QHS Allopurinol 300 Mg Tablet 1 Tab PO DAILY Allergies Allergies: Coded Allergies: No Known Drug Allergies (Unverified , 10/24/17) ROS General: No: Chills, Night Sweats, Fatigue, Malaise, Appetite, Other PSYCHOLOGICAL ROS: No: Anxiety, Behavioral Disorder, Concentration difficultie, Decreased libido, Depression, Disorientation, Hallucinations, Hostility, Irritablity, Memory difficulties, Mood Swings, Obsessive thoughts, Physical abuse, Sexual abuse, Sleep disturbances, Suicidal ideation, Other Eyes: No Blurry vision, No Decreased vision, No Double vision, No Dry eyes, No Excessive tearing, No Eye Pain, No Itchy Eyes, No Loss of vision, No Photophobia, No Scotomata, No Uses contacts, No Uses glasses, No Other HEENT: No: Heacaches, Visual Changes, Hearing change, Nasal congestion, Nasal discharge, Oral lesions, Sinus pain, Sore Throat, Epistaxis, Sneezing, Snoring, Tinnitus, Vertigo, Vocal changes, Other ALLERGY AND IMMUNOLOGY: No: Hives, Insect Bite Sensitivity, Itchy/Watery Eyes, Nasal Congestion, Post Nasal Drip, Seasonal Allergies, Other Hematological and Lymphatic: No: Bleeding Problems, Blood Clots, Blood Transfusions, Brusing, Night Sweats, Pallor, Swollen Lymph Nodes, Other ENDOCRINE: No: Breast Changes, Galactorrhea, Hair Pattern Changes, Hot Flashes, Malaise/lethargy, Mood Swings, Palpitations, Polydipsia/polyuria, Skin Changes, Temperature Intolerance, Unexpected Weight Changes, Other Breast: No New/Changing Breast Lumps, No Nipple changes, No Nipple discharge, No Other Respiratory: No: Cough, Hemoptysis, Orthopnea, Pleuritic Pain, Shortness of breath, SOB with excertion, Sputum Changes, Stridor, Tachypnea, Wheezing, Other Cardiovascular: No Chest Pain, No Palpitations, No Orthopnea, No Paroxysmal No c. Dyspnea, No Edema, No Lt Headedness, No Other Gastrointestinal: No Nausea, No Vomiting, No Abdominal Pain, No Diarrhea, No Constipation, No Melena, No Hematochezia, No Other Genitourinary: No Dysuria, No Frequency, No Incontinence, No Hematuria, No Retention, No Discharge, No Urgency, No Pain, No Flank Pain, No Other, No , No , No , No , No , No , No Musculoskeletal: Yes Gait Disturbance, Yes Joint Pain, Yes Joint Stiffness Neurological: No Behavorial Changes, No Bowel/Bladder ControlChng, No Confusio n, No Dizziness, No Gait Disturbance, No Headaches, No Impaired Coord/balance, No Memory Loss, No Numbness/Tingling, No Seizures, No Speech Problems, No Tremors, No Visual Changes, No Weakness, No Other Skin: Yes Nail Changes; No Dry Skin, No Eczema, No Hair Changes, No Lumps, No Mole Changes, No Mottling, No Pruritus, No Rash, No Skin Lesion Changes, No Other, No Acne Physical Exam Physical Exam Lower extremity: Skin is warm, xerotic, atrophic. Decreased turgor. no hair is present to feet. Chronic venous stasis changes to anterior legs bilateral. Nails are long x 10 with thickening and yellow discoloration as well as subungal debris to bilateral hallux. DP 1/4. PT 0/4. +2 pitting edema to bilateral lower extremity. No discontinuity of skin. Sensation is diminished to sharp dull and light touch. Dorsally contracted digits 2-5 bilateral. Positive pain on palpation to nails. Muscle strength is 5/5. General: Alert, Oriented X3, mild distress Vitals VITALS Vital Signs Date Time Temp Pulse Resp B/P (MAP) Pulse Ox O2 Delivery O2 Flow Rate FiO2 09/07/19 10:27 97.6 87 20 150/42 (78) 96 Room Air 97.6 Labs Labs Laboratory Tests Test 09/06/19 08:00 09/06/19 14:00 09/06/19 16:49 09/06/19 20:40 White Blood Count 6.6 x10^3/uL (4.0-11.0) Red Blood Count 3.07 x10^6/uL (3.50-5.40) Hemoglobin 7.1 g/dL (12.0-15.5) Hematocrit 23.7 % (36.0-47.0) Mean Corpuscular Volume 77 fL (79-100) Mean Corpuscular Hemoglobin 23 pg (25-35) Mean Corpuscular Hemoglobin Concent 30 g/dL (31-37) Red Cell Distribution Width 21.7 % (11.5-14.5) Platelet Count 410 x10^3/uL (140-400) Neutrophils (%) (Auto) 70 % (31-73) Lymphocytes (%) (Auto) 18 % (24-48) Monocytes (%) (Auto) 8 % (0-9) Eosinophils (%) (Auto) 4 % (0-3) Basophils (%) (Auto) 1 % (0-3) Neutrophils # (Auto) 4.6 x10^3/uL (1.8-7.7) Lymphocytes # (Auto) 1.2 x10^3/uL (1.0-4.8) Monocytes # (Auto) 0.5 x10^3/uL (0.0-1.1) Eosinophils # (Auto) 0.3 x10^3/uL (0.0-0.7) Basophils # (Auto) 0.0 x10^3/uL (0.0-0.2) Platelet Estimate Increased (ADEQUATE) Hypochromasia Slight Anisocytosis Mod Ovalocytes Occ Urine Collection Type Unknown Urine Color Yellow Urine Clarity Turbid Urine pH 5.0 (<5.0-8.0) Urine Specific Monette 1.020 (1.000-1.030) Urine Protein 30 mg/dL (NEG-TRACE) Urine Glucose (UA) Negative mg/dL (NEG) Urine Ketones (Stick) Negative mg/dL (NEG) Urine Blood Small (NEG) Urine Nitrite Negative (NEG) Urine Bilirubin Negative (NEG) Urine Urobilinogen Dipstick 0.2 mg/dL (0.2 mg/dL) Urine Leukocyte Esterase Large (NEG) Urine RBC 3-5 /HPF (0-2) Urine WBC >40 /HPF (0-4) Urine Squamous Epithelial Cells Few /LPF Urine Bacteria 0 /HPF (0-FEW) Sodium Level 141 mmol/L (136-145) Potassium Level 4.4 mmol/L (3.5-5.1) Chloride Level 106 mmol/L (98-107) Carbon Dioxide Level 21 mmol/L (21-32) Anion Gap 14 (6-14) Blood Urea Nitrogen 43 mg/dL (7-20) Creatinine 1.9 mg/dL (0.6-1.0) Estimated GFR (Cockcroft-Gault) 25.6 BUN/Creatinine Ratio 23 (6-20) Glucose Level 200 mg/dL (70-99) Calcium Level 8.6 mg/dL (8.5-10.1) Total Bilirubin 0.3 mg/dL (0.2-1.0) Aspartate Amino Transf (AST/SGOT) 13 U/L (15-37) Alanine Aminotransferase (ALT/SGPT) 9 U/L (14-59) Alkaline Phosphatase 90 U/L (46-116) Total Protein 6.5 g/dL (6.4-8.2) Albumin 2.8 g/dL (3.4-5.0) Albumin/Globulin Ratio 0.8 (1.0-1.7) Prothrombin Time 16.1 SEC (11.7-14.0) Prothromb Time International Ratio 1.3 (0.8-1.1) Glucose (Fingerstick) 146 mg/dL (70-99) Stool Occult Blood Negative (NEG) Test 09/06/19 20:47 09/07/19 04:05 09/07/19 07:11 09/07/19 11:24 Glucose (Fingerstick) 203 mg/dL (70-99) 120 mg/dL (70-99) 180 mg/dL (70-99) White Blood Count 5.8 x10^3/uL (4.0-11.0) Red Blood Count 2.90 x10^6/uL (3.50-5.40) Hemoglobin 7.0 g/dL (12.0-15.5) Hematocrit 22.4 % (36.0-47.0) Mean Corpuscular Volume 77 fL (79-100) Mean Corpuscular Hemoglobin 24 pg (25-35) Mean Corpuscular Hemoglobin Concent 31 g/dL (31-37) Red Cell Distribution Width 21.5 % (11.5-14.5) Platelet Count 400 x10^3/uL (140-400) Neutrophils (%) (Auto) 67 % (31-73) Lymphocytes (%) (Auto) 18 % (24-48) Monocytes (%) (Auto) 8 % (0-9) Eosinophils (%) (Auto) 6 % (0-3) Basophils (%) (Auto) 1 % (0-3) Neutrophils # (Auto) 3.9 x10^3/uL (1.8-7.7) Lymphocytes # (Auto) 1.0 x10^3/uL (1.0-4.8) Monocytes # (Auto) 0.5 x10^3/uL (0.0-1.1) Eosinophils # (Auto) 0.4 x10^3/uL (0.0-0.7) Basophils # (Auto) 0.0 x10^3/uL (0.0-0.2) Prothrombin Time 15.3 SEC (11.7-14.0) Prothromb Time International Ratio 1.3 (0.8-1.1) Sodium Level 138 mmol/L (136-145) Potassium Level 4.3 mmol/L (3.5-5.1) Chloride Level 105 mmol/L (98-107) Carbon Dioxide Level 23 mmol/L (21-32) Anion Gap 10 (6-14) Blood Urea Nitrogen 32 mg/dL (7-20) Creatinine 1.6 mg/dL (0.6-1.0) Estimated GFR (Cockcroft-Gault) 31.2 Glucose Level 128 mg/dL (70-99) Calcium Level 8.4 mg/dL (8.5-10.1) Laboratory Tests Test 09/06/19 14:00 09/06/19 16:49 09/06/19 20:40 09/06/19 20:47 Prothrombin Time 16.1 SEC (11.7-14.0) Prothromb Time International Ratio 1.3 (0.8-1.1) Glucose (Fingerstick) 146 mg/dL (70-99) 203 mg/dL (70-99) Stool Occult Blood Negative (NEG) Test 09/07/19 04:05 09/07/19 07:11 09/07/19 11:24 White Blood Count 5.8 x10^3/uL (4.0-11.0) Red Blood Count 2.90 x10^6/uL (3.50-5.40) Hemoglobin 7.0 g/dL (12.0-15.5) Hematocrit 22.4 % (36.0-47.0) Mean Corpuscular Volume 77 fL (79-100) Mean Corpuscular Hemoglobin 24 pg (25-35) Mean Corpuscular Hemoglobin Concent 31 g/dL (31-37) Red Cell Distribution Width 21.5 % (11.5-14.5) Platelet Count 400 x10^3/uL (140-400) Neutrophils (%) (Auto) 67 % (31-73) Lymphocytes (%) (Auto) 18 % (24-48) Monocytes (%) (Auto) 8 % (0-9) Eosinophils (%) (Auto) 6 % (0-3) Basophils (%) (Auto) 1 % (0-3) Neutrophils # (Auto) 3.9 x10^3/uL (1.8-7.7) Lymphocytes # (Auto) 1.0 x10^3/uL (1.0-4.8) Monocytes # (Auto) 0.5 x10^3/uL (0.0-1.1) Eosinophils # (Auto) 0.4 x10^3/uL (0.0-0.7) Basophils # (Auto) 0.0 x10^3/uL (0.0-0.2) Prothrombin Time 15.3 SEC (11.7-14.0) Prothromb Time International Ratio 1.3 (0.8-1.1) Sodium Level 138 mmol/L (136-145) Potassium Level 4.3 mmol/L (3.5-5.1) Chloride Level 105 mmol/L (98-107) Carbon Dioxide Level 23 mmol/L (21-32) Anion Gap 10 (6-14) Blood Urea Nitrogen 32 mg/dL (7-20) Creatinine 1.6 mg/dL (0.6-1.0) Estimated GFR (Cockcroft-Gault) 31.2 Glucose Level 128 mg/dL (70-99) Calcium Level 8.4 mg/dL (8.5-10.1) Glucose (Fingerstick) 120 mg/dL (70-99) 180 mg/dL (70-99) Assessment/Plan Assessment/Plan 79 year old female with DM, peripheral neuropathy, clinical onychomycosis, onychauxis, lymphedema, and diffuse PVD -Debrided nails x 10 without incident and to patient tolerance. -Reinforced proper DM foot care -Recommend DM shoegear and insoles -Recommend daily foot checks. -She defers treatment with topical antifungal to nails as she cannot reach her toes. Will continue debridement every 3 months -Patient also with financial hardships paying for her medical bills/medications/food. Will consult social work at this time to determine if patient is a candidate for social work manager/medicaid. -Follow up in office in 3 months or sooner if new ulceration or pain. SOCORRO PAIGE DPM Sep 07, 2019 12:38
[2019-09-07 14:47] VITALS: BP 132/46
[2019-09-07] MEDS: WARFARIN 7.5 MG TABLET. PO SCH (16:47)
[2019-09-07 19:00] VITALS: BP 123/59
[2019-09-07] MEDS: ATORVASTATIN CALCIUM 40 MG TABLET. PO SCH (21:16)
[2019-09-07 23:00] VITALS: BP 150/47
[2019-09-08 03:00] VITALS: BP 134/66
[2019-09-08 05:10] LABS: BASO % 1 % (0-3); EOS # 0.3 x10^3/uL (0.0-0.7); EOS % 5 % (0-3); HEMOGLOBIN 7.4 g/dL (12.0-15.5); LYMPH % 16 % (24-48); MEAN CORPUSCULAR HEMOGLOBIN 24 pg (25-35); MEAN CORPUSCULAR HGB CONC 31 g/dL (31-37); MEAN CORPUSCULAR VOLUME 78 fL (79-100); MONO # 0.5 x10^3/uL (0.0-1.1); MONO % 8 % (0-9); NEUT # 4.1 x10^3/uL (1.8-7.7); NEUT % 70 % (31-73); PLATELET COUNT 389 x10^3/uL (140-400); RED BLOOD COUNT 3.09 x10^6/uL (3.50-5.40); RED CELL DISTRIBUTION WIDTH 21.7 % (11.5-14.5); WHITE BLOOD COUNT 5.8 x10^3/uL (4.0-11.0)
[2019-09-08 05:16] LABS: PROTHROMBIN TIME PATIENT 16.4 SEC (11.7-14.0)
[2019-09-08 07:00] VITALS: BP 127/45
[2019-09-08] MEDS: FERROUS SULFATE 325 MG TABLET. PO SCH (09:00)
[2019-09-08] MEDS: cefTRIAXone IV Push 1 GM VIAL. IVP SCH (09:01)
[2019-09-08] MEDS: ALLOPURINOL 100 MG TABLET. PO SCH (09:01)
[2019-09-08] MEDS: PANTOPRAZOLE 40 MG TABLET.DR. PO SCH (09:01)
[2019-09-08] MEDS: DICLOFENAC SODIUM 1% TOPICAL GEL 100GM TUBE. TP SCH ×2 (09:10→20:56)
[2019-09-08] MEDS: INSULIN LISPRO 300 UNITS/3 ML VIAL. SQ SCH ×4 (09:13→21:00)
[2019-09-08] MEDS: INSULIN GLARGINE SYRINGE. SQ SCH ×2 (09:14→21:00)
--- NOTE | 2019-09-08 10:36 | PDOC ---
PROGRESS NOTES Chief Complaint Chief Complaint Left hip pain -appears to be osteoarthritis with DJD on x-ray. Injection done on 09/07/2019 Right calf pain - negative for DVT PE history more or less one year ago Lymphedema - chronic, will have OT evaluate once assessed for DVT Acute anemia -possibly of CKD. On chronic iron denies any GI losses will check iron stores transfuse for Hb less than 7 Morbid obesity -counseled on diet weight loss. Hypertension - continue home meds Paroxsymal afib - noted in [facility] in 2017, has been sinus since. On coumadin, rate controlled Urinary tract infection - with positive excite esterase, negative nitrates, will give empiric Rocephin BOBBY on CKD - Cr 1.9 from 1.3 last check. FEN - Renal diet PPX - warfarin FULL CODE Dispo - inpatient for above Further recommendations based on clinical course. Reassess in the a.m. History of Present Illness History of Present Illness 09/07/2019: Discussed results of imaging studies and explained plan of care in detail no new concerns were voiced during my visit. No acute events reported overnight, case discussed with nursing staff patient in no acute distress no complaints during my visit 09/08/2019: No acute events reported overnight, case discussed with nursing staff patient in no acute distress no complaints during my visit but still having sig nificant discomfort still not ready to be discharged discussed case with Dr. Graff recommendations greatly appreciated Vitals Vitals Vital Signs Date Time Temp Pulse Resp B/P (MAP) Pulse Ox O2 Delivery O2 Flow Rate FiO2 09/08/19 09:01 69 127/45 09/08/19 07:46 Room Air 09/08/19 07:00 97.7 18 97 97.7 Physical Exam General: Alert, Oriented X3, mild distress Lungs: Clear Abdomen: Normal bowel sounds, Soft, No tenderness, No hepatosplenomegaly, No masses Extremities: No clubbing, No cyanosis, Other (Bilateral edema, right calf > left calf) Skin: No breakdown, Other (Venous stasis dermatitis, xerosis bilaterally) Labs LABS Laboratory Tests Test 09/07/19 11:24 09/07/19 16:14 09/07/19 21:13 09/08/19 04:05 Glucose (Fingerstick) 180 mg/dL (70-99) 140 mg/dL (70-99) 191 mg/dL (70-99) White Blood Count 5.8 x10^3/uL (4.0-11.0) Red Blood Count 3.09 x10^6/uL (3.50-5.40) Hemoglobin 7.4 g/dL (12.0-15.5) Hematocrit 24.0 % (36.0-47.0) Mean Corpuscular Volume 78 fL (79-100) Mean Corpuscular Hemoglobin 24 pg (25-35) Mean Corpuscular Hemoglobin Concent 31 g/dL (31-37) Red Cell Distribution Width 21.7 % (11.5-14.5) Platelet Count 389 x10^3/uL (140-400) Neutrophils (%) (Auto) 70 % (31-73) Lymphocytes (%) (Auto) 16 % (24-48) Monocytes (%) (Auto) 8 % (0-9) Eosinophils (%) (Auto) 5 % (0-3) Basophils (%) (Auto) 1 % (0-3) Neutrophils # (Auto) 4.1 x10^3/uL (1.8-7.7) Lymphocytes # (Auto) 1.0 x10^3/uL (1.0-4.8) Monocytes # (Auto) 0.5 x10^3/uL (0.0-1.1) Eosinophils # (Auto) 0.3 x10^3/uL (0.0-0.7) Basophils # (Auto) 0.0 x10^3/uL (0.0-0.2) Prothrombin Time 16.4 SEC (11.7-14.0) Prothromb Time International Ratio 1.4 (0.8-1.1) Test 09/08/19 07:25 Glucose (Fingerstick) 221 mg/dL (70-99) Assessment and Plan Assessmemt and Plan Problems Medical Problems: (1) CKD (chronic kidney disease) Status: Acute (2) DJD (degenerative joint disease) of pelvis Status: Acute (3) Encounter for rehabilitation evaluation Status: Acute (4) Microcytic anemia Status: Acute Comment Review of Relevant I have reviewed the following items edis (where applicable) has been applied. Labs Laboratory Tests Test 09/06/19 14:00 09/06/19 16:49 09/06/19 20:40 09/06/19 20:47 Prothrombin Time 16.1 SEC (11.7-14.0) Prothromb Time International Ratio 1.3 (0.8-1.1) Glucose (Fingerstick) 146 mg/dL (70-99) 203 mg/dL (70-99) Stool Occult Blood Negative (NEG) Test 09/07/19 04:05 09/07/19 07:11 09/07/19 11:24 09/07/19 16:14 White Blood Count 5.8 x10^3/uL (4.0-11.0) Red Blood Count 2.90 x10^6/uL (3.50-5.40) Hemoglobin 7.0 g/dL (12.0-15.5) Hematocrit 22.4 % (36.0-47.0) Mean Corpuscular Volume 77 fL (79-100) Mean Corpuscular Hemoglobin 24 pg (25-35) Mean Corpuscular Hemoglobin Concent 31 g/dL (31-37) Red Cell Distribution Width 21.5 % (11.5-14.5) Platelet Count 400 x10^3/uL (140-400) Neutrophils (%) (Auto) 67 % (31-73) Lymphocytes (%) (Auto) 18 % (24-48) Monocytes (%) (Auto) 8 % (0-9) Eosinophils (%) (Auto) 6 % (0-3) Basophils (%) (Auto) 1 % (0-3) Neutrophils # (Auto) 3.9 x10^3/uL (1.8-7.7) Lymphocytes # (Auto) 1.0 x10^3/uL (1.0-4.8) Monocytes # (Auto) 0.5 x10^3/uL (0.0-1.1) Eosinophils # (Auto) 0.4 x10^3/uL (0.0-0.7) Basophils # (Auto) 0.0 x10^3/uL (0.0-0.2) Prothrombin Time 15.3 SEC (11.7-14.0) Prothromb Time International Ratio 1.3 (0.8-1.1) Sodium Level 138 mmol/L (136-145) Potassium Level 4.3 mmol/L (3.5-5.1) Chloride Level 105 mmol/L (98-107) Carbon Dioxide Level 23 mmol/L (21-32) Anion Gap 10 (6-14) Blood Urea Nitrogen 32 mg/dL (7-20) Creatinine 1.6 mg/dL (0.6-1.0) Estimated GFR (Cockcroft-Gault) 31.2 Glucose Level 128 mg/dL (70-99) Calcium Level 8.4 mg/dL (8.5-10.1) Glucose (Fingerstick) 120 mg/dL (70-99) 180 mg/dL (70-99) 140 mg/dL (70-99) Test 09/07/19 21:13 09/08/19 04:05 09/08/19 07:25 Glucose (Fingerstick) 191 mg/dL (70-99) 221 mg/dL (70-99) White Blood Count 5.8 x10^3/uL (4.0-11.0) Red Blood Count 3.09 x10^6/uL (3.50-5.40) Hemoglobin 7.4 g/dL (12.0-15.5) Hematocrit 24.0 % (36.0-47.0) Mean Corpuscular Volume 78 fL (79-100) Mean Corpuscular Hemoglobin 24 pg (25-35) Mean Corpuscular Hemoglobin Concent 31 g/dL (31-37) Red Cell Distribution Width 21.7 % (11.5-14.5) Platelet Count 389 x10^3/uL (140-400) Neutrophils (%) (Auto) 70 % (31-73) Lymphocytes (%) (Auto) 16 % (24-48) Monocytes (%) (Auto) 8 % (0-9) Eosinophils (%) (Auto) 5 % (0-3) Basophils (%) (Auto) 1 % (0-3) Neutrophils # (Auto) 4.1 x10^3/uL (1.8-7.7) Lymphocytes # (Auto) 1.0 x10^3/uL (1.0-4.8) Monocytes # (Auto) 0.5 x10^3/uL (0.0-1.1) Eosinophils # (Auto) 0.3 x10^3/uL (0.0-0.7) Basophils # (Auto) 0.0 x10^3/uL (0.0-0.2) Prothrombin Time 16.4 SEC (11.7-14.0) Prothromb Time International Ratio 1.4 (0.8-1.1) Laboratory Tests Test 09/07/19 11:24 09/07/19 16:14 09/07/19 21:13 09/08/19 04:05 Glucose (Fingerstick) 180 mg/dL (70-99) 140 mg/dL (70-99) 191 mg/dL (70-99) White Blood Count 5.8 x10^3/uL (4.0-11.0) Red Blood Count 3.09 x10^6/uL (3.50-5.40) Hemoglobin 7.4 g/dL (12.0-15.5) Hematocrit 24.0 % (36.0-47.0) Mean Corpuscular Volume 78 fL (79-100) Mean Corpuscular Hemoglobin 24 pg (25-35) Mean Corpuscular Hemoglobin Concent 31 g/dL (31-37) Red Cell Distribution Width 21.7 % (11.5-14.5) Platelet Count 389 x10^3/uL (140-400) Neutrophils (%) (Auto) 70 % (31-73) Lymphocytes (%) (Auto) 16 % (24-48) Monocytes (%) (Auto) 8 % (0-9) Eosinophils (%) (Auto) 5 % (0-3) Basophils (%) (Auto) 1 % (0-3) Neutrophils # (Auto) 4.1 x10^3/uL (1.8-7.7) Lymphocytes # (Auto) 1.0 x10^3/uL (1.0-4.8) Monocytes # (Auto) 0.5 x10^3/uL (0.0-1.1) Eosinophils # (Auto) 0.3 x10^3/uL (0.0-0.7) Basophils # (Auto) 0.0 x10^3/uL (0.0-0.2) Prothrombin Time 16.4 SEC (11.7-14.0) Prothromb Time International Ratio 1.4 (0.8-1.1) Test 09/08/19 07:25 Glucose (Fingerstick) 221 mg/dL (70-99) Microbiology 09/06/19 Urine Culture - Final, Complete Medications Current Medications Ceftriaxone Sodium (Rocephin) 1 gm 1X ONCE IVP Last administered on 09/06/19 09:40; Start 09/06/19 at 08:15; Stop 09/06/19 at 08:16; Status DC Ceftriaxone Sodium (Rocephin) 1 gm DAILY IVP Last administered on 09/08/19 09:01; Start 09/07/19 at 09:00 Allopurinol (Zyloprim) 100 mg DAILY PO Last administered on 09/08/19 09:01; Start 09/07/19 at 09:00 Atorvastatin Calcium (Lipitor) 40 mg QHS PO Last administered on 09/07/19 21:16; Start 09/06/19 at 21:00 Diclofenac Sodium (Voltaren) 1 laurel BID TP Last administered on 09/08/19 09:10; Start 09/06/19 at 21:00 Diltiazem HCl (Cardizem 24hr Cd) 120 mg DAILY PO Last administered on 09/08/19 09:01; Start 09/07/19 at 09:00 Ferrous Sulfate (Feosol) 325 mg DAILY PO Last administered on 09/08/19 09:00; Start 09/07/19 at 09:00 Insulin Glargine (Lantus Syringe) 20 unit BID SQ Last administered on 09/08/19 09:14; Start 09/06/19 at 21:00 Pantoprazole Sodium (Protonix) 40 mg DAILY PO Last administered on 09/08/19 09:01; Start 09/07/19 at 09:00 Warfarin Sodium (Coumadin) 7.5 mg DAILY16 PO Last administered on 09/07/19at 16:47; Start 09/06/19 at 16:00 Insulin Human Lispro (HumaLOG) 0-7 UNITS TIDACHC SQ Last administered on 09/08/19 09:13; Start 09/06/19 at 16:30 Dextrose (Dextrose 50%-Water Syringe) 12.5 gm PRN Q15MIN PRN IV SEE COMMENTS; Start 09/06/19 at 14:00 Warfarin Sodium (Coumadin Per Physician) 1 each PRN DAILY PRN MC SEE COMMENTS Last administered on 09/07/19at 15:02; Start 09/06/19 at 15:15 Methylprednisolone Acetate (DEPO-Medrol 40MG VIAL) 40 mg 1X ONCE IM ; Start 09/07/19 at 10:00; Stop 09/07/19 at 10:01; Status DC Bupivacaine HCl (Sensorcaine-Mpf 0.25%) 10 ml 1X ONCE IJ ; Start 09/07/19 at 10:00; Stop 09/07/19 at 10:01; Status DC Active Scripts Active Prednisone (Prednisone) 10 Mg Tablet 10 Mg PO UD Take 5 tablets by mouth daily for 2 days, then take 4 tablets by mouth daily for 2 days, then take 3 tablets by mouth daily for 2 days, then take 2 tablets by mouth daily for 2 days, then take 1 tablets by mouth daily for 2 days, then stop. Keflex (Cephalexin) 500 Mg Capsule 2 Cap PO TID Lantus (Insulin Glargine,Hum.rec.anlog) 100 Unit/1 Ml Vial 20 Unit SQ BID 30 Days Voltaren (Diclofenac Sodium) 100 Gm Gel..gram. 1 Laurel TP BID 14 Days Methocarbamol 750 Mg Tablet 750 Mg PO PRN Q8HRS PRN 14 Days Coumadin (Warfarin Sodium) 7.5 Mg Tablet 7.5 Mg PO DAILY16 30 Days Ferrous Sulfate 325 Mg Tablet 1 Tab PO DAILY Cozaar (Losartan Potassium) 25 Mg Tablet 25 Mg PO DAILY Diltiazem 24HR Cd (Diltiazem Hcl) 120 Mg Cap.er.24h 120 Mg PO DAILY Reported Vitamin D2 (Ergocalciferol (Vitamin D2)) 50,000 Unit Capsule 1 Cap PO WEEKLY Furosemide 40 Mg Tablet 1 Tab PO DAILY [novolin R] 25 Units SQ TIDAC Potassium Chloride 10 Meq Tablet.er 10 Meq PO BID Pantoprazole Sodium (Pantoprazole Sodium) 40 Mg Tablet.dr 1 Tab PO DAILY Atorvastatin Calcium 40 Mg Tablet 1 Tab PO QHS Allopurinol 300 Mg Tablet 1 Tab PO DAILY Vitals/I & O Vital Sign - Last 24 Hours 09/07/19 09/07/19 09/07/19 09/07/19 14:47 19:00 20:00 23:00 Temp 98.1 99.2 98.5 98.1 99.2 98.5 Pulse 75 81 76 Resp 18 20 20 B/P (MAP) 132/46 (74) 123/59 (80) 150/47 (81) Pulse Ox 97 97 95 O2 Delivery Room Air Room Air Room Air Room Air 09/08/19 09/08/19 09/08/19 09/08/19 03:00 07:00 07:46 09:01 Temp 97.7 97.7 97.7 97.7 Pulse 68 69 69 Resp 20 18 B/P (MAP) 134/66 (88) 127/45 (72) 127/45 Pulse Ox 98 97 O2 Delivery Room Air Room Air Room Air Intake and Output 09/07/19 09/07/19 09/08/19 15:00 23:00 07:00 Intake Total 860 ml 520 ml Output Total 300 ml Balance 860 ml 220 ml JASON TILLEY MD Sep 08, 2019 10:36
[2019-09-08 11:00] VITALS: BP 144/62
--- NOTE | 2019-09-08 13:07 | PDOC ---
PROGRESS NOTES Subjective Subjective She admits pain higher up in her left hip. Objective Objective Vital Signs Date Time Temp Pulse Resp B/P (MAP) Pulse Ox O2 Delivery O2 Flow Rate FiO2 09/08/19 11:00 97.6 69 18 144/62 (89) 99 Room Air 97.6 Intake and Output 09/08/19 07:00 Intake Total 1380 ml Output Total 300 ml Balance 1080 ml Intake Oral 1380 ml Output Urine Total 300 ml # Voids 9 # Bowel Movements 1 Physical Exam Physical Exam She had tenderness to palpation over left sacroiliac joint area and SLR test is negative bilaterally and she takes time with bed mobility. Assessment Assessment Problems Medical Problems: (1) CKD (chronic kidney disease) Status: Acute (2) DJD (degenerative joint disease) of pelvis Status: Acute (3) Encounter for rehabilitation evaluation Status: Acute (4) Microcytic anemia Status: Acute Plan Plan of Care I thought of injecting painful left sacroiliac joint area,bbut held it up at this time as her blood sugar was high. Agree with plans for SNF transfer when medically stable. Comment Review of Relevant I have reviewed the following items edis (where applicable) has been applied. Labs Laboratory Tests Test 09/06/19 14:00 09/06/19 16:49 09/06/19 20:40 09/06/19 20:47 Prothrombin Time 16.1 SEC (11.7-14.0) Prothromb Time International Ratio 1.3 (0.8-1.1) Glucose (Fingerstick) 146 mg/dL (70-99) 203 mg/dL (70-99) Stool Occult Blood Negative (NEG) Test 09/07/19 04:05 09/07/19 07:11 09/07/19 11:24 09/07/19 16:14 White Blood Count 5.8 x10^3/uL (4.0-11.0) Red Blood Count 2.90 x10^6/uL (3.50-5.40) Hemoglobin 7.0 g/dL (12.0-15.5) Hematocrit 22.4 % (36.0-47.0) Mean Corpuscular Volume 77 fL (79-100) Mean Corpuscular Hemoglobin 24 pg (25-35) Mean Corpuscular Hemoglobin Concent 31 g/dL (31-37) Red Cell Distribution Width 21.5 % (11.5-14.5) Platelet Count 400 x10^3/uL (140-400) Neutrophils (%) (Auto) 67 % (31-73) Lymphocytes (%) (Auto) 18 % (24-48) Monocytes (%) (Auto) 8 % (0-9) Eosinophils (%) (Auto) 6 % (0-3) Basophils (%) (Auto) 1 % (0-3) Neutrophils # (Auto) 3.9 x10^3/uL (1.8-7.7) Lymphocytes # (Auto) 1.0 x10^3/uL (1.0-4.8) Monocytes # (Auto) 0.5 x10^3/uL (0.0-1.1) Eosinophils # (Auto) 0.4 x10^3/uL (0.0-0.7) Basophils # (Auto) 0.0 x10^3/uL (0.0-0.2) Prothrombin Time 15.3 SEC (11.7-14.0) Prothromb Time International Ratio 1.3 (0.8-1.1) Sodium Level 138 mmol/L (136-145) Potassium Level 4.3 mmol/L (3.5-5.1) Chloride Level 105 mmol/L (98-107) Carbon Dioxide Level 23 mmol/L (21-32) Anion Gap 10 (6-14) Blood Urea Nitrogen 32 mg/dL (7-20) Creatinine 1.6 mg/dL (0.6-1.0) Estimated GFR (Cockcroft-Gault) 31.2 Glucose Level 128 mg/dL (70-99) Calcium Level 8.4 mg/dL (8.5-10.1) Glucose (Fingerstick) 120 mg/dL (70-99) 180 mg/dL (70-99) 140 mg/dL (70-99) Test 09/07/19 21:13 09/08/19 04:05 09/08/19 07:25 09/08/19 11:35 Glucose (Fingerstick) 191 mg/dL (70-99) 221 mg/dL (70-99) 148 mg/dL (70-99) White Blood Count 5.8 x10^3/uL (4.0-11.0) Red Blood Count 3.09 x10^6/uL (3.50-5.40) Hemoglobin 7.4 g/dL (12.0-15.5) Hematocrit 24.0 % (36.0-47.0) Mean Corpuscular Volume 78 fL (79-100) Mean Corpuscular Hemoglobin 24 pg (25-35) Mean Corpuscular Hemoglobin Concent 31 g/dL (31-37) Red Cell Distribution Width 21.7 % (11.5-14.5) Platelet Count 389 x10^3/uL (140-400) Neutrophils (%) (Auto) 70 % (31-73) Lymphocytes (%) (Auto) 16 % (24-48) Monocytes (%) (Auto) 8 % (0-9) Eosinophils (%) (Auto) 5 % (0-3) Basophils (%) (Auto) 1 % (0-3) Neutrophils # (Auto) 4.1 x10^3/uL (1.8-7.7) Lymphocytes # (Auto) 1.0 x10^3/uL (1.0-4.8) Monocytes # (Auto) 0.5 x10^3/uL (0.0-1.1) Eosinophils # (Auto) 0.3 x10^3/uL (0.0-0.7) Basophils # (Auto) 0.0 x10^3/uL (0.0-0.2) Prothrombin Time 16.4 SEC (11.7-14.0) Prothromb Time International Ratio 1.4 (0.8-1.1) Laboratory Tests Test 09/07/19 16:14 09/07/19 21:13 09/08/19 04:05 09/08/19 07:25 Glucose (Fingerstick) 140 mg/dL (70-99) 191 mg/dL (70-99) 221 mg/dL (70-99) White Blood Count 5.8 x10^3/uL (4.0-11.0) Red Blood Count 3.09 x10^6/uL (3.50-5.40) Hemoglobin 7.4 g/dL (12.0-15.5) Hematocrit 24.0 % (36.0-47.0) Mean Corpuscular Volume 78 fL (79-100) Mean Corpuscular Hemoglobin 24 pg (25-35) Mean Corpuscular Hemoglobin Concent 31 g/dL (31-37) Red Cell Distribution Width 21.7 % (11.5-14.5) Platelet Count 389 x10^3/uL (140-400) Neutrophils (%) (Auto) 70 % (31-73) Lymphocytes (%) (Auto) 16 % (24-48) Monocytes (%) (Auto) 8 % (0-9) Eosinophils (%) (Auto) 5 % (0-3) Basophils (%) (Auto) 1 % (0-3) Neutrophils # (Auto) 4.1 x10^3/uL (1.8-7.7) Lymphocytes # (Auto) 1.0 x10^3/uL (1.0-4.8) Monocytes # (Auto) 0.5 x10^3/uL (0.0-1.1) Eosinophils # (Auto) 0.3 x10^3/uL (0.0-0.7) Basophils # (Auto) 0.0 x10^3/uL (0.0-0.2) Prothrombin Time 16.4 SEC (11.7-14.0) Prothromb Time International Ratio 1.4 (0.8-1.1) Test 09/08/19 11:35 Glucose (Fingerstick) 148 mg/dL (70-99) Microbiology 09/06/19 Urine Culture - Final, Complete Medications Current Medications Ceftriaxone Sodium (Rocephin) 1 gm 1X ONCE IVP Last administered on 09/06/19at 09:40; Start 09/06/19 at 08:15; Stop 09/06/19 at 08:16; Status DC Ceftriaxone Sodium (Rocephin) 1 gm DAILY IVP Last administered on 09/08/19at 09:01; Start 09/07/19 at 09:00 Allopurinol (Zyloprim) 100 mg DAILY PO Last administered on 09/08/19at 09:01; Start 09/07/19 at 09:00 Atorvastatin Calcium (Lipitor) 40 mg QHS PO Last administered on 09/07/19at 21:16; Start 09/06/19 at 21:00 Diclofenac Sodium (Voltaren) 1 laurel BID TP Last administered on 09/08/19at 09:10; Start 09/06/19 at 21:00 Diltiazem HCl (Cardizem 24hr Cd) 120 mg DAILY PO Last administered on 09/08/19at 09:01; Start 09/07/19 at 09:00 Ferrous Sulfate (Feosol) 325 mg DAILY PO Last administered on 09/08/19at 09:00; Start 09/07/19 at 09:00 Insulin Glargine (Lantus Syringe) 20 unit BID SQ Last administered on 09/08/19at 09:14; Start 09/06/19 at 21:00 Pantoprazole Sodium (Protonix) 40 mg DAILY PO Last administered on 09/08/19at 09:01; Start 09/07/19 at 09:00 Warfarin Sodium (Coumadin) 7.5 mg DAILY16 PO Last administered on 09/07/19at 16:47; Start 09/06/19 at 16:00 Insulin Human Lispro (HumaLOG) 0-7 UNITS TIDACHC SQ Last administered on 09/08/19at 09:13; Start 09/06/19 at 16:30 Dextrose (Dextrose 50%-Water Syringe) 12.5 gm PRN Q15MIN PRN IV SEE COMMENTS; Start 09/06/19 at 14:00 Warfarin Sodium (Coumadin Per Physician) 1 each PRN DAILY PRN MC SEE COMMENTS Last administered on 09/07/19at 15:02; Start 09/06/19 at 15:15 Methylprednisolone Acetate (DEPO-Medrol 40MG VIAL) 40 mg 1X ONCE IM ; Start 09/07/19 at 10:00; Stop 09/07/19 at 10:01; Status DC Bupivacaine HCl (Sensorcaine-Mpf 0.25%) 10 ml 1X ONCE IJ ; Start 09/07/19 at 10:00; Stop 09/07/19 at 10:01; Status DC Active Scripts Active Prednisone (Prednisone) 10 Mg Tablet 10 Mg PO UD Take 5 tablets by mouth daily for 2 days, then take 4 tablets by mouth daily for 2 days, then take 3 tablets by mouth daily for 2 days, then take 2 tablets by mouth daily for 2 days, then take 1 tablets by mouth daily for 2 days, then stop. Keflex (Cephalexin) 500 Mg Capsule 2 Cap PO TID Lantus (Insulin Glargine,Hum.rec.anlog) 100 Unit/1 Ml Vial 20 Unit SQ BID 30 Days Voltaren (Diclofenac Sodium) 100 Gm Gel..gram. 1 Laurel TP BID 14 Days Methocarbamol 750 Mg Tablet 750 Mg PO PRN Q8HRS PRN 14 Days Coumadin (Warfarin Sodium) 7.5 Mg Tablet 7.5 Mg PO DAILY16 30 Days Ferrous Sulfate 325 Mg Tablet 1 Tab PO DAILY Cozaar (Losartan Potassium) 25 Mg Tablet 25 Mg PO DAILY Diltiazem 24HR Cd (Diltiazem Hcl) 120 Mg Cap.er.24h 120 Mg PO DAILY Reported Vitamin D2 (Ergocalciferol (Vitamin D2)) 50,000 Unit Capsule 1 Cap PO WEEKLY Furosemide 40 Mg Tablet 1 Tab PO DAILY [novolin R] 25 Units SQ TIDAC Potassium Chloride 10 Meq Tablet.er 10 Meq PO BID Pantoprazole Sodium (Pantoprazole Sodium) 40 Mg Tablet.dr 1 Tab PO DAILY Atorvastatin Calcium 40 Mg Tablet 1 Tab PO QHS Allopurinol 300 Mg Tablet 1 Tab PO DAILY Vitals/I & O Vital Sign - Last 24 Hours 09/07/19 09/07/19 09/07/19 09/07/19 14:47 19:00 20:00 23:00 Temp 98.1 99.2 98.5 98.1 99.2 98.5 Pulse 75 81 76 Resp 18 20 B/P (MAP) 132/46 (74) 123/59 (80) 150/47 (81) Pulse Ox 97 97 95 O2 Delivery Room Air Room Air Room Air Room Air 09/08/19 09/08/19 09/08/19 09/08/19 03:00 07:00 07:46 09:01 Temp 97.7 97.7 97.7 97.7 Pulse 68 69 69 Resp 20 18 B/P (MAP) 134/66 (88) 127/45 (72) 127/45 Pulse Ox 98 97 O2 Delivery Room Air Room Air Room Air 09/08/19 11:00 Temp 97.6 97.6 Pulse 69 Resp 18 B/P (MAP) 144/62 (89) Pulse Ox 99 O2 Delivery Room Air Intake and Output 09/07/19 09/07/19 09/08/19 15:00 23:00 07:00 Intake Total 860 ml 520 ml Output Total 300 ml Balance 860 ml 220 ml MAAME BYRNES MD Sep 08, 2019 13:07
[2019-09-08 15:00] VITALS: BP 125/53
[2019-09-08] MEDS: WARFARIN 7.5 MG TABLET. PO SCH (17:03)
[2019-09-08 19:00] VITALS: BP 127/55
[2019-09-08] MEDS: ATORVASTATIN CALCIUM 40 MG TABLET. PO SCH (20:55)
[2019-09-08 23:15] VITALS: BP 151/66
[2019-09-09 03:01] VITALS: BP 128/54
[2019-09-09] MEDS: INSULIN LISPRO 300 UNITS/3 ML VIAL. SQ SCH (07:30)
[2019-09-09 08:06] VITALS: BP 117/57
[2019-09-09 08:25] VITALS: BP 117/57
[2019-09-09] MEDS: PANTOPRAZOLE 40 MG TABLET.DR. PO SCH (08:25)
[2019-09-09] MEDS: ALLOPURINOL 100 MG TABLET. PO SCH (08:25)
[2019-09-09] MEDS: FERROUS SULFATE 325 MG TABLET. PO SCH (08:25)
[2019-09-09] MEDS: cefTRIAXone IV Push 1 GM VIAL. IVP SCH (08:26)
[2019-09-09] MEDS: DICLOFENAC SODIUM 1% TOPICAL GEL 100GM TUBE. TP SCH (08:31)
[2019-09-09] MEDS: INSULIN GLARGINE SYRINGE. SQ SCH (08:36)
[2019-09-09] MEDS ORDERED: ACET325T9 PO (09:54)
[2019-09-09] MEDS ORDERED: FURO-69 PO (09:54)
[2019-09-09] MEDS ORDERED: CEPH-264 PO (09:54)
--- NOTE | 2019-09-09 09:56 | SNU/HH DC ---
DISCHARGE ORDERS DISCHARGE INFORMATION: DISCHARGE DATE: Sep 09, 2019 FINAL DIAGNOSIS Left hip pain - acute flare of osteoarthritis with DJD on x-ray. Injection done on 09/07/2019 Right calf pain - muscle strain, neg DVT PE history more or less one year ago Lymphedema - chronic, will have OT evaluate once assessed for DVT Acute anemia -possibly of CKD. On chronic iron denies any GI losses Morbid obesity - BMI 44, Hypertension - continue home meds, chrnoic diastolic CHF Paroxsymal afib - noted in [facility] in 2017, has been sinus since. On coumadin, rate controlled Urinary tract infection - with positive excite esterase, negative nitrates, given Rocephin BOBBY on CKD - Cr 1.9 from 1.3 last check. Problems Medical Problems: (1) CKD (chronic kidney disease) Status: Acute (2) DJD (degenerative joint disease) of pelvis Status: Acute (3) Encounter for rehabilitation evaluation Status: Acute (4) Microcytic anemia Status: Acute CONDITION ON DISCHARGE: Stable CODE STATUS: Code Status: Full SENIOR CARE: SNF STAY <30 DAYS: Yes POST DISCHARGE ORDERS: ACTIVITY ORDERS: Activity as tolerated WEIGHT BEARING STATUS: As tolerated DIET AFTER DISCHARGE: ADA CHECKS AFTER DISCHARGE: CHECKS AFTER DISCHARGE: Check blood press - daily, Check blood sugar, ac/hs FOLLOW-UP: PHYSICIAN FOLLOW-UP: Dr. Moser 1-2 weeks ANTICOAGULATION F/U NEEDED: INR 2x week, TREATMENT/EQUIPMENT ORDERS: Physical Therapy For: Evalulation/Treatment Occupational Therapy For: Evaluation/Treatment DISCHARGE MEDICATIONS: Home Meds Active Scripts Furosemide (LASIX) 20 Mg Tablet, 1 TAB PO DAILY for CHF for 30 Days, #30 TAB 0 Refills Prov:LILI SCHAEFER MD 09/09/19 Acetaminophen (TYLENOL) 325 Mg Tablet, 1-2 TAB PO QID PRN for PAIN, #60 TAB Prov:LILI SCHAEFER MD 09/09/19 Cephalexin (KEFLEX) 500 Mg Capsule, 2 CAP PO TID for UTI, #12 CAP Prov:LILI SCHAEFER MD 09/09/19 Insulin Glargine,Hum.rec.anlog (LANTUS) 100 Unit/1 Ml Vial, 20 UNIT SQ BID for DM2 for 30 Days, #1 EACH Prov:HARPREET MOSER MD 12/28/18 Diclofenac Sodium (VOLTAREN) 100 Gm Gel..gram., 1 VU TP BID for Pain for 14 Days, #28 EACH Prov:HARPREET MOSER MD 12/28/18 Methocarbamol (METHOCARBAMOL) 750 Mg Tablet, 750 MG PO PRN Q8HRS PRN for MUSCLE SPASMS for 14 Days, #60 TAB Prov:HARPREET MOSER MD 12/28/18 Warfarin Sodium (COUMADIN) 7.5 Mg Tablet, 7.5 MG PO DAILY16 for 30 Days, #30 TAB Prov:HARPREET MOSER MD 09/29/17 Ferrous Sulfate (FERROUS SULFATE) 325 Mg Tablet, 1 TAB PO DAILY, #30 TAB 3 Refills Prov:MERRICK TOURE MD 06/10/16 Losartan Potassium (COZAAR ) 25 Mg Tablet, 25 MG PO DAILY, #30 TAB Prov:HARPREET MOSER MD 04/04/16 Diltiazem Hcl (DILTIAZEM 24HR CD) 120 Mg Cap.er.24h, 120 MG PO DAILY, #30 TAB Prov:HARPREET MOSER MD 04/04/16 Reported Medications Ergocalciferol (Vitamin D2) (VITAMIN D2) 50,000 Unit Capsule, 1 CAP PO WEEKLY, #4 CAP 5 Refills 06/21/16 Pantoprazole Sodium (PANTOPRAZOLE SODIUM ) 40 Mg Tablet.dr, 1 TAB PO DAILY, #30 TAB 3 Refills 04/01/16 Atorvastatin Calcium (ATORVASTATIN CALCIUM) 40 Mg Tablet, 1 TAB PO QHS, #90 TAB 3 Refills 04/01/16 Allopurinol (ALLOPURINOL) 300 Mg Tablet, 1 TAB PO DAILY, #30 TAB 5 Refills 04/01/16 Discontinued Reported Medications Furosemide (FUROSEMIDE) 40 Mg Tablet, 1 TAB PO DAILY, #30 TAB 5 Refills 04/01/16 [novolin R] No Conflict Check, 25 UNITS SQ TIDAC 04/01/16 Potassium Chloride (POTASSIUM CHLORIDE) 10 Meq Tablet.er, 10 MEQ PO BID, TAB 04/01/16 Discontinued Scripts Prednisone (PREDNISONE ) 10 Mg Tablet, 10 MG PO UD for OA, #30 TAB 0 Refills Take 5 tablets by mouth daily for 2 days, then take 4 tablets by mouth daily for 2 days, then take 3 tablets by mouth daily for 2 days, then take 2 tablets by mouth daily for 2 days, then take 1 tablets by mouth daily for 2 days, then stop. Prov:HARPREET MOSER MD 12/28/18 LILI SCHAEFER MD Sep 09, 2019 09:56
--- NOTE | 2019-09-09 10:13 | PDOC3 ---
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 Injection done on 09/07/2019 Right calf pain - muscle strain, neg DVT PE history more or less one year ago Lymphedema - chronic, will have OT evaluate once assessed for DVT Acute anemia -possibly of CKD. On chronic iron denies any GI losses Morbid obesity - BMI 44, Hypertension - continue home meds, chrnoic diastolic CHF Paroxsymal afib - noted in RVR in 2017, has been sinus since. On coumadin, rate controlled Urinary tract infection - with positive excite esterase, negative nitrates, given Rocephin BOBBY on CKD - Cr 1.9 from 1.3 last check. Problems Medical Problems: (1) CKD (chronic kidney disease) Status: Acute (2) DJD (degenerative joint disease) of pelvis Status: Acute (3) Encounter for rehabilitation evaluation Status: Acute (4) Microcytic anemia Status: Acute Brief Hospital Course Allergies Allergies Coded Allergies Type Severity Reaction Last Updated Verified No Known Drug Allergies 10/24/17 No Vital Signs Vital Signs Date Time Temp Pulse Resp B/P (MAP) Pulse Ox O2 Delivery O2 Flow Rate FiO2 09/09/19 08:25 60 117/57 09/09/19 08:06 97.5 18 99 Room Air 97.5 Lab Results Laboratory Tests Test 09/07/19 11:24 09/07/19 16:14 09/07/19 21:13 09/08/19 04:05 Glucose (Fingerstick) 180 mg/dL (70-99) 140 mg/dL (70-99) 191 mg/dL (70-99) White Blood Count 5.8 x10^3/uL (4.0-11.0) Red Blood Count 3.09 x10^6/uL (3.50-5.40) Hemoglobin 7.4 g/dL (12.0-15.5) Hematocrit 24.0 % (36.0-47.0) Mean Corpuscular Volume 78 fL (79-100) Mean Corpuscular Hemoglobin 24 pg (25-35) Mean Corpuscular Hemoglobin Concent 31 g/dL (31-37) Red Cell Distribution Width 21.7 % (11.5-14.5) Platelet Count 389 x10^3/uL (140-400) Neutrophils (%) (Auto) 70 % (31-73) Lymphocytes (%) (Auto) 16 % (24-48) Monocytes (%) (Auto) 8 % (0-9) Eosinophils (%) (Auto) 5 % (0-3) Basophils (%) (Auto) 1 % (0-3) Neutrophils # (Auto) 4.1 x10^3/uL (1.8-7.7) Lymphocytes # (Auto) 1.0 x10^3/uL (1.0-4.8) Monocytes # (Auto) 0.5 x10^3/uL (0.0-1.1) Eosinophils # (Auto) 0.3 x10^3/uL (0.0-0.7) Basophils # (Auto) 0.0 x10^3/uL (0.0-0.2) Prothrombin Time 16.4 SEC (11.7-14.0) Prothromb Time International Ratio 1.4 (0.8-1.1) Test 09/08/19 07:25 09/08/19 10:35 09/08/19 11:35 09/08/19 17:02 Glucose (Fingerstick) 221 mg/dL (70-99) 148 mg/dL (70-99) 176 mg/dL (70-99) Coronavirus (COVID-19)(PCR) Not detected (NOT DETECT.) Test 09/08/19 20:04 09/09/19 07:46 Glucose (Fingerstick) 171 mg/dL (70-99) 132 mg/dL (70-99) Laboratory Tests Test 09/08/19 10:35 09/08/19 11:35 09/08/19 17:02 09/08/19 20:04 Coronavirus (COVID-19)(PCR) Not detected (NOT DETECT.) Glucose (Fingerstick) 148 mg/dL (70-99) 176 mg/dL (70-99) 171 mg/dL (70-99) Test 09/09/19 07:46 Glucose (Fingerstick) 132 mg/dL (70-99) Brief Hospital Course Ms. Cheng is a 79 old female, admit with hip pain, could not walk. Mult other problems listed above, felt much improved, still weak Discharge Information Condition at Discharge: Improved Follow Up: Weeks Disposition/Orders: D/C to Another Facility Scheduled Allopurinol (Allopurinol) 300 Mg Tablet, 1 TAB PO DAILY, #30 Ref 5 (Reported) Entered as Reported by: RAHDA SIDHU on 04/01/161142 Last Action: Continued on 09/06/191352 by LAURIE GIBSON MD Atorvastatin Calcium (Atorvastatin Calcium) 40 Mg Tablet, 1 TAB PO QHS, #90 Ref 3 (Reported) Entered as Reported by: RADHA SIDHU on 04/01/161142 Last Action: Continued on 09/06/191352 by LAURIE GIBSON MD Cephalexin (Keflex) 500 Mg Capsule, 2 CAP PO TID for UTI, #12 Prescribed by: LILI SCHAEFER on 09/09/19 0954 Diclofenac Sodium (Voltaren) 100 Gm Gel..gram., 1 VU TP BID for Pain for 14 Days, #28 Prescribed by: HARPREET ZAMORA on 12/28/18 0852 Last Action: Continued on 09/06/191352 by LAURIE GIBSON MD Diltiazem Hcl (Diltiazem 24HR Cd) 120 Mg Cap.er.24h, 120 MG PO DAILY, #30 Prescribed by: HARPREET ZAMORA on 04/04/16 1210 Last Action: Continued on 09/06/191352 by LAURIE GIBSON MD Ergocalciferol (Vitamin D2) (Vitamin D2) 50,000 Unit Capsule, 1 CAP PO WEEKLY, #4 Ref 5 (Reported) Entered as Reported by: JOELLEN GARBER on 06/21/16 0712 Ferrous Sulfate (Ferrous Sulfate) 325 Mg Tablet, 1 TAB PO DAILY, #30 Ref 3 Prescribed by: MERRICK TOURE on 06/10/16 0817 Last Action: Continued on 09/06/191352 by LAURIE GIBSON MD Furosemide (Lasix) 20 Mg Tablet, 1 TAB PO DAILY for CHF for 30 Days, #30 Ref 0 Prescribed by: LILI SCHAEFER on 09/09/19 0954 Insulin Glargine,Hum.rec.anlog (Lantus) 100 Unit/1 Ml Vial, 20 UNIT SQ BID for DM2 for 30 Days, #1 Prescribed by: HARPREET ZAMORA on 12/28/18 0852 Last Action: Continued on 09/06/191352 by LAURIE GIBSON MD Losartan Potassium (Cozaar ) 25 Mg Tablet, 25 MG PO DAILY, #30 Prescribed by: HARPREET ZAMORA on 04/04/16 1210 Pantoprazole Sodium (Pantoprazole Sodium ) 40 Mg Tablet.dr, 1 TAB PO DAILY, #30 Ref 3 (Reported) Entered as Reported by: RADHA SIDHU on 04/01/16 1143 Last Action: Continued on 09/06/19 1353 by LAURIE GIBSON MD Warfarin Sodium (Coumadin) 7.5 Mg Tablet, 7.5 MG PO DAILY16 for 30 Days, #30 Prescribed by: HARPREET ZAMORA on 09/29/17 0859 Last Action: Continued on 09/06/19 135 by LAURIE GIBSON MD Scheduled PRN Acetaminophen (Tylenol) 325 Mg Tablet, 1-2 TAB PO QID PRN for PAIN, #60 Prescribed by: LILI SCHAEFER on 09/09/19 0954 Methocarbamol (Methocarbamol) 750 Mg Tablet, 750 MG PO PRN Q8HRS PRN for MUSCLE SPASMS for 14 Days, #60 Prescribed by: HARPREET ZAMORA on 12/28/18 0852 Discontinued Medications Furosemide (Furosemide) 40 Mg Tablet, 1 TAB PO DAILY, #30 Ref 5 (Reported) Entered as Reported by: VALE HAIDER on 04/01/16 1157 Potassium Chloride (Potassium Chloride) 10 Meq Tablet.er, 10 MEQ PO BID, (Reported) Entered as Reported by: RADHA SIDHU on 04/01/16 1145 Prednisone (Prednisone ) 10 Mg Tablet, 10 MG PO UD for OA, #30 Ref 0 Take 5 tablets by mouth daily for 2 days, then take 4 tablets by mouth daily for 2 days, then take 3 tablets by mouth daily for 2 days, then take 2 tablets by mouth daily for 2 days, then take 1 tablets by mouth daily for 2 days, then stop. Prescribed by: HARPREET ZAMORA on 12/28/18 0853 [novolin R] , 25 UNITS SQ TIDAC, (Reported) Entered as Reported by: RADHA SIDHU on 04/01/16 1148 Patient Instructions Patient Instructions > 30 min face to face Justicifation of Admission Dx: Justifications for Admission: Justification of Admission Dx: Yes Chronic Renal Failure: Renail Failure LILI SCHAEFER MD Sep 09, 2019 10:13
== END 2019-09-09 11:19 | DRG 683 ==
LOC: ER 07:32 → 4 NORTH 11:22
PROVIDERS: ADMIT Internal Medicine; ATTEND Internal Medicine
PROC: 3E0U33Z Introduction of Anti-inflammatory into Joints, Percutaneous Approach (ICD-10-PCS; principal; 2019-09-07)
PROC: 3E0U3BZ Introduction of Anesthetic Agent into Joints, Percutaneous Approach (ICD-10-PCS; 2019-09-07)
DX: N17.9 Acute kidney failure, unspecified (principal); N39.0 Urinary tract infection, site not specified; I13.0 Hypertensive heart and chronic kidney disease with heart failure and stage 1 through stage 4 chronic kidney disease, or unspecified chronic kidney disease; Z68.41 Body mass index [BMI] 40.0-44.9, adult; M16.0 Bilateral primary osteoarthritis of hip; Z20.828 Contact with and (suspected) exposure to other viral communicable diseases; B35.1 Tinea unguium; D50.9 Iron deficiency anemia, unspecified; N18.9 Chronic kidney disease, unspecified; M70.62 Trochanteric bursitis, left hip; I89.0 Lymphedema, not elsewhere classified; I48.0 Paroxysmal atrial fibrillation; I50.9 Heart failure, unspecified; L60.2 Onychogryphosis; E78.5 Hyperlipidemia, unspecified; G89.29 Other chronic pain; E78.00 Pure hypercholesterolemia, unspecified; E66.01 Morbid (severe) obesity due to excess calories; E11.51 Type 2 diabetes mellitus with diabetic peripheral angiopathy without gangrene; E11.42 Type 2 diabetes mellitus with diabetic polyneuropathy; K21.9 Gastro-esophageal reflux disease without esophagitis; M79.661 Pain in right lower leg; E11.22 Type 2 diabetes mellitus with diabetic chronic kidney disease; Z86.711 Personal history of pulmonary embolism; Z79.4 Long term (current) use of insulin; Z79.01 Long term (current) use of anticoagulants; Z87.01 Personal history of pneumonia (recurrent); Z98.49 Cataract extraction status, unspecified eye; Z71.3 Dietary counseling and surveillance
CPT/HCPCS: 36415; 71045; 73502; 80048; 80053; 81001; 82274; 82962; 85025; 85610; 86850; 86900; 86901; 87086; 93005; 93970; 96374; J0696; J1815; P9612; 97530-GO; 97535-GO; 99285-25; G0378; U0003-CS

== ENCOUNTER 2019-10-14 12:04 | Inpatient (IN) | payer MEDICARE ==
[~2019-10-14] VITALS: Ht 162.6 cm; Wt 118.1 kg
[~2019-10-14 12:04] MED LIST changes: +ACET325T9 PO; +FURO-69 PO
[2019-10-14] MEDS ORDERED: GABAPENTIN 100 MG CAPSULE. PO STA (12:29)
[2019-10-14] MEDS ORDERED: ONDANSETRON ODT 4 MG TAB.RAPDIS. PO ONE (12:30)
[2019-10-14] MEDS ORDERED: HYDROcodone/APAP 5/325MG 1 TAB TABLET PO ONE (12:30)
[2019-10-14] MEDS ORDERED: IV NORMAL SALINE 500ML BAG 500 ML IV ONE (12:30)
--- NOTE | 2019-10-14 12:31 | PHYS DOC ---
Past Medical History Past Medical History: Diabetes-Type II, DVT, High Cholesterol, Hypertension, Pneumonia, Other Additional Past Medical Histor: PE, lymphedema Past Surgical History: Other Additional Past Surgical Histo: chest while /TUBES IN LUNGS Smoking Status: Never Smoker Alcohol Use: None Drug Use: None General Adult EDM: Chief Complaint: HYPOGLYCEMIA HPI: HPI: Patient is a 79 year old f biba with low blood sugar "i have had a urine infection and it is gretting worse. when i go to the bathroom it is just a small stream." x one week. patient has chronic left hip pain was admitted, had rehab now pain is increasing again has bilateral foot burning pain denies medications for this. no fever, no cough. no chest pain. today got a little dizzy when she stood up so gave tube oral glucose came up from 59 to 85. ate breakfast at six am. used insulin at 5 am. insulin used sliding scale at meals normally. had not eaten lunch yet when this happened. Review of Systems: Review of Systems: Constitutional: Denies fever or chills. [] Eyes: Denies change in visual acuity. [] HENT: Denies nasal congestion or sore throat. [] Respiratory: Denies cough or shortness of breath. [] Cardiovascular: Denies chest pain or edema. [] GI: : Neurologic: Denies headache, focal weakness or sensory changes. [] Endocrine: Heart Score: Risk Factors: Risk Factors: DM, Current or recent (<one month) smoker, HTN, HLP, family history of CAD, obesity. Risk Scores: Score 0 - 3: 2.5% MACE over next 6 weeks - Discharge Home Score 4 - 6: 20.3% MACE over next 6 weeks - Admit for Clinical Observation Score 7 - 10: 72.7% MACE over next 6 weeks - Early Invasive Strategies Allergies: Allergies: Allergies Coded Allergies Type Severity Reaction Last Updated Verified No Known Drug Allergies 10/24/17 No Physical Exam: PE: Constitutional: Well developed, well nourished, no acute distress, non-toxic appearance. [] HENT: Normocephalic, atraumatic, bilateral external ears normal, oropharynx moist, no oral exudates, nose normal. [] Eyes: PERRLA, EOMI, conjunctiva normal, no discharge. [] Neck: Normal range of motion, no tenderness, supple, no stridor. [] Cardiovascular:Heart rate regular rhythm, no murmur [] Lungs & Thorax: Bilateral breath sounds clear to auscultation [] Abdomen: Bowel sounds normal, soft, no tenderness, no masses, no pulsatile masses. [] Skin: Warm, dry, no erythema, no rash. [] Back: No tenderness, no CVA tenderness. [] Extremities: No tenderness, no cyanosis, no clubbing, ROM intact, no edema. [] Neurologic: Alert and oriented X 3, normal motor function, normal sensory function, no focal deficits noted. [] Psychologic: Affect normal, judgement normal, mood normal. [] Current Patient Data: Labs: Laboratory Tests Test 10/14/19 12:12 Glucose (Fingerstick) 85 mg/dL (70-99) Vital Signs: Vital Signs Date Time Temp Pulse Resp B/P (MAP) Pulse Ox O2 Delivery O2 Flow Rate FiO2 10/14/19 12:04 98.5 89 18 115/60 (78) 98 Room Air 98.5 EKG: EKG: [] Radiology/Procedures: Radiology/Procedures: [] Impression: TECHNIQUE: Single portable radiograph of the chest FINDINGS: The cardiac silhouette is unremarkable. The lungs are clear bilaterally. The costophrenic sulci are clear and well demarcated. IMPRESSION: No radiographic evidence of an acute cardiopulmonary process. Electronically signed by: Wei Tobin MD (10/14/2019 1:16 PM) [id number] DICTATED and SIGNED BY: WEI TOBIN MD DATE: 10/14/19 1316 Course & Med Decision Making: Course & Med Decision Making Pertinent Labs and Imaging studies reviewed. (See chart for details) [] 71-year-old female with a history of diabetes chronic hip pain neuropathy presenting with generalized weakness some dizziness and lightheadedness. Blood sugar was low at 59 patient has a UTI she is having difficulty getting around on her own and she also has acute on chronic kidney disease as well. Baseline creatinine is quite elevated now compared to normal. Discussed with Dr. Gonzalez for admission IV fluids were provided in the emergency room as well as antibiotics Sam Disclaimer: Sam Disclaimer: This electronic medical record was generated, in whole or in part, using a voice recognition dictation system. Departure Departure Impression: Primary Impression: UTI (urinary tract infection) Additional Impression: Acute renal failure Disposition: 09 ADMITTED INPATIENT Admitting Physician: CHATO Condition: STABLE Referrals: HARPREET ZAMORA MD (PCP) Justicifation of Admission Dx: Justifications for Admission: Justification of Admission Dx: Yes Acute Renal Failure: RF Can't Be Managed Outpt Chronic Renal Failure: Renail Failure DANICA ABRAMS MD Oct 14, 2019 12:31
[2019-10-14 12:40] LABS: BASO % 0 % (0-3); EOS # 0.3 x10^3/uL (0.0-0.7); EOS % 4 % (0-3); HEMOGLOBIN 8.6 g/dL (12.0-15.5); LYMPH # 1.8 x10^3/uL (1.0-4.8); LYMPH % 23 % (24-48); MEAN CORPUSCULAR HEMOGLOBIN 26 pg (25-35); MEAN CORPUSCULAR HGB CONC 32 g/dL (31-37); MEAN CORPUSCULAR VOLUME 83 fL (79-100); MONO # 0.7 x10^3/uL (0.0-1.1); MONO % 9 % (0-9); NEUT % 64 % (31-73); PLATELET COUNT 380 x10^3/uL (140-400); RED BLOOD COUNT 3.26 x10^6/uL (3.50-5.40); RED CELL DISTRIBUTION WIDTH 23.2 % (11.5-14.5); WHITE BLOOD COUNT 7.8 x10^3/uL (4.0-11.0)
[2019-10-14 12:51] LABS: BILIRUBIN,URINE NEGATIVE (NEG); COLOR,URINE YELLOW; NITRITE,URINE NEGATIVE (NEG); PROTEIN,URINE NEGATIVE (NEG-TRACE); UROBILINOGEN,URINE 0.2 mg/dL (0.2 mg/dL)
[2019-10-14 12:51] LABS: CALCIUM 9.3 mg/dL (8.5-10.1); CREATININE 2.3 mg/dL (0.6-1.0); GFR 20.5; POTASSIUM 4.8 mmol/L (3.5-5.1)
[2019-10-14 12:58] LABS: ALBUMIN 3.1 g/dL (3.4-5.0); ALBUMIN/GLOBULIN RATIO 0.8 (1.0-1.7); TOTAL BILIRUBIN 0.2 mg/dL (0.2-1.0); TOTAL PROTEIN 7.2 g/dL (6.4-8.2)
[2019-10-14 13:03] LABS: ANISOCYTOSIS SLIGHT; PLT ESTIMATE ADEQUATE (ADEQUATE)
[2019-10-14 13:09] LABS: CLARITY,URINE HAZY
[2019-10-14 13:10] LABS: BACTERIA,URINE FEW /HPF (0-FEW); YEAST,URINE PRESENT /HPF
--- NOTE | 2019-10-14 13:19 | RAD ---
EXAM: CHEST 1 VIEW History: Weakness COMPARISON: 09/06/2019 TECHNIQUE: Single portable radiograph of the chest FINDINGS: The cardiac silhouette is unremarkable. The lungs are clear bilaterally. The costophrenic sulci are clear and well demarcated. IMPRESSION: No radiographic evidence of an acute cardiopulmonary process. Electronically signed by: Wei Tobin MD (10/14/2019 1:16 PM) [id number]
[2019-10-14] MEDS ORDERED: cefTRIAXone IV Push 1 GM VIAL. IVP ONE (14:00)
[2019-10-14 15:00] VITALS: BP 113/47
--- NOTE | 2019-10-14 15:08 | PDOC1 ---
History and Physical Date of Admission Date of Admission DATE: 10/14/19 TIME: 15:07 Identification/Chief Complaint Chief Complaint SEEN IN ER WITH HYPOGLYCEMIA patient has chronic left hip pain was admitted, had rehab now pain is increasing again has bilateral foot burning pain denies medications for this. no fever, no cough. no chest pain. NOTES little dizzy when she stood up so gave tube oral glucose came up from 59 to 85. ate breakfast at six am. used insulin at 5 am. insulin used sliding scale at meals normally. 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, not much water intake x 2 days losarten and allopurinol held due to CKD Past Medical History Past Medical History Past Medical History Past Medical History Past Medical History: Diabetes-Type II, DVT, High Cholesterol, Hypertension, Pneumonia, Other Additional Past Medical Histor: PE, lymphedema Past Surgical History: Other Additional Past Surgical Histo: chest while /TUBES IN LUNGS Smoking Status: Never Smoker Alcohol Use: None Drug Use: None FHX OBESITY Cardiovascular: AFIB, HTN, Hyperlipidemia Pulmonary: Pulmonary embolus, Other CENTRAL NERVOUS SYSTEM: Other GI: GI bleed, Other Heme/Onc: Anemia NOS Hepatobiliary: No pertinent hx Psych: No pertinent hx Musculoskeletal: low back pain, Osteoarthritis Rheumatologic: No pertinent hx Infectious disease: No pertinent hx Renal/: Chronic renal insuff Endocrine: Diabetes, Other Past Surgical History Past Surgical History: Cataract Removal, Tonsillectomy, Other Family History Family History: Cancer, Hypertension, Other Social History Smoke: No ALCOHOL: none Drugs: None Current Problem List Problem List Problems Medical Problems: (1) Acute renal failure Status: Acute Current Medications Current Medications Current Medications Sodium Chloride 500 ml @ 500 mls/hr 1X ONCE IV Last administered on 10/14/19at 12:49; Start 10/14/19 at 12:30; Stop 10/14/19 at 13:29; Status DC Gabapentin (Neurontin) 100 mg 1X STAT PO Last administered on 10/14/19at 12:49; Start 10/14/19 at 12:29; Stop 10/14/19 at 12:31; Status DC Acetaminophen/ Hydrocodone Bitart (Lortab 5/325) 1 tab 1X ONCE PO Last administered on 10/14/19at 12:49; Start 10/14/19 at 12:30; Stop 10/14/19 at 12:33; Status DC Ondansetron HCl (Zofran Odt) 4 mg 1X ONCE PO Last administered on 10/14/19at 12:49; Start 10/14/19 at 12:30; Stop 10/14/19 at 12:33; Status DC Sodium Chloride 1,000 ml @ 75 mls/hr [id number] IV ; Start 10/14/19 at 14:00; Stop 10/15/19 at 13:59 Ceftriaxone Sodium (Rocephin) 1 gm 1X ONCE IVP Last administered on 10/14/19at 14:23; Start 10/14/19 at 14:00; Stop 10/14/19 at 14:01; Status DC Active Scripts Active Lasix (Furosemide) 20 Mg Tablet 1 Tab PO DAILY 30 Days Tylenol (Acetaminophen) 325 Mg Tablet 1-2 Tab PO QID PRN Keflex (Cephalexin) 500 Mg Capsule 2 Cap PO TID Lantus (Insulin Glargine,Hum.rec.anlog) 100 Unit/1 Ml Vial 20 Unit SQ BID 30 Days Voltaren (Diclofenac Sodium) 100 Gm Gel..gram. 1 [place] TP BID 14 Days Methocarbamol 750 Mg Tablet 750 Mg PO PRN Q8HRS PRN 14 Days Coumadin (Warfarin Sodium) 7.5 Mg Tablet 7.5 Mg PO DAILY16 30 Days Ferrous Sulfate 325 Mg Tablet 1 Tab PO DAILY Cozaar (Losartan Potassium) 25 Mg Tablet 25 Mg PO DAILY Diltiazem 24HR Cd (Diltiazem Hcl) 120 Mg Cap.er.24h 120 Mg PO DAILY Reported Vitamin D2 (Ergocalciferol (Vitamin D2)) 50,000 Unit Capsule 1 Cap PO WEEKLY Pantoprazole Sodium (Pantoprazole Sodium) 40 Mg Tablet.dr 1 Tab PO DAILY Atorvastatin Calcium 40 Mg Tablet 1 Tab PO QHS Allopurinol 300 Mg Tablet 1 Tab PO DAILY Allergies Allergies: Coded Allergies: No Known Drug Allergies (Unverified , 10/24/17) ROS Review of System Constitutional: Denies fever or chills. [] Eyes: Denies change in visual acuity. [] HENT: Denies nasal congestion or sore throat. [] Respiratory: Denies cough or shortness of breath. [] Cardiovascular: Denies chest pain or edema. [] NOTES LITTLE WATER INTAKE X 2 DAYS Neurologic: Denies headache, focal weakness or sensory changes. [] 14 PT ROS OTHERWISE NEG Skin: Yes Dry Skin Physical Exam Physical Exam Constitutional: Well developed, well nourished, no acute distress, non-toxic appearance. [] HENT: Normocephalic, atraumatic, bilateral external ears normal, oropharynx moist, no oral exudates, nose normal. [] Eyes: PERRLA, EOMI, conjunctiva normal, no discharge. [] Neck: Normal range of motion, no tenderness, supple, no stridor. [] Cardiovascular:Heart rate regular rhythm, no murmur [] Lungs & Thorax: Bilateral breath sounds clear to auscultation [] Abdomen: Bowel sounds normal, soft, no tenderness, no masses, no pulsatile masses. [] Skin: Warm, dry, no erythema, no rash. [] Back: No tenderness, no CVA tenderness. [] Extremities: No tenderness, no cyanosis, no clubbing, ROM intact, no edema. [] Neurologic: Alert and oriented X 3, normal motor function, normal sensory funct ion, no focal deficits noted. [] Psychologic: Affect normal, judgement normal, mood normal. [] General: Alert, Oriented X3, Cooperative, No acute distress HEENT: Atraumatic, PERRLA, EOMI, Mucous membr. moist/pink Heart: RRR, no thrills Breasts: Not examined Abdomen: Soft Rectal Exam: not examined Extremities: No cyanosis Neuro: Normal speech, Strength at 5/5 X4 ext, Sensation intact, Cranial nerves 3-12 NL Psych/Mental Status: Mental status NL, Mood NL Vitals Vitals Vital Signs Date Time Temp Pulse Resp B/P (MAP) Pulse Ox O2 Delivery O2 Flow Rate FiO2 10/14/19 14:10 82 17 122/63 (82) 100 Room Air 10/14/19 12:04 98.5 98.5 Labs Labs Laboratory Tests Test 10/14/19 12:12 10/14/19 12:20 10/14/19 12:38 10/14/19 13:40 Glucose (Fingerstick) 85 mg/dL (70-99) 101 mg/dL (70-99) White Blood Count 7.8 x10^3/uL (4.0-11.0) Red Blood Count 3.26 x10^6/uL (3.50-5.40) Hemoglobin 8.6 g/dL (12.0-15.5) Hematocrit 27.0 % (36.0-47.0) Mean Corpuscular Volume 83 fL (79-100) Mean Corpuscular Hemoglobin 26 pg (25-35) Mean Corpuscular Hemoglobin Concent 32 g/dL (31-37) Red Cell Distribution Width 23.2 % (11.5-14.5) Platelet Count 380 x10^3/uL (140-400) Neutrophils (%) (Auto) 64 % (31-73) Lymphocytes (%) (Auto) 23 % (24-48) Monocytes (%) (Auto) 9 % (0-9) Eosinophils (%) (Auto) 4 % (0-3) Basophils (%) (Auto) 0 % (0-3) Neutrophils # (Auto) 5.0 x10^3/uL (1.8-7.7) Lymphocytes # (Auto) 1.8 x10^3/uL (1.0-4.8) Monocytes # (Auto) 0.7 x10^3/uL (0.0-1.1) Eosinophils # (Auto) 0.3 x10^3/uL (0.0-0.7) Basophils # (Auto) 0.0 x10^3/uL (0.0-0.2) Platelet Estimate Adequate (ADEQUATE) Anisocytosis Slight Sodium Level 142 mmol/L (136-145) Potassium Level 4.8 mmol/L (3.5-5.1) Chloride Level 106 mmol/L (98-107) Carbon Dioxide Level 28 mmol/L (21-32) Anion Gap 8 (6-14) Blood Urea Nitrogen 55 mg/dL (7-20) Creatinine 2.3 mg/dL (0.6-1.0) Estimated GFR (Cockcroft-Gault) 20.5 BUN/Creatinine Ratio 24 (6-20) Glucose Level 83 mg/dL (70-99) Lactic Acid Level 3.1 mmol/L (0.4-2.0) Calcium Level 9.3 mg/dL (8.5-10.1) Total Bilirubin 0.2 mg/dL (0.2-1.0) Aspartate Amino Transf (AST/SGOT) 23 U/L (15-37) Alanine Aminotransferase (ALT/SGPT) 15 U/L (14-59) Alkaline Phosphatase 85 U/L (46-116) Total Protein 7.2 g/dL (6.4-8.2) Albumin 3.1 g/dL (3.4-5.0) Albumin/Globulin Ratio 0.8 (1.0-1.7) Urine Collection Type U cath Urine Color Yellow Urine Clarity Hazy Urine pH 5.0 (<5.0-8.0) Urine Specific Pierce 1.015 (1.000-1.030) Urine Protein Negative mg/dL (NEG-TRACE) Urine Glucose (UA) Negative mg/dL (NEG) Urine Ketones (Stick) Negative mg/dL (NEG) Urine Blood Moderate (NEG) Urine Nitrite Negative (NEG) Urine Bilirubin Negative (NEG) Urine Urobilinogen Dipstick 0.2 mg/dL (0.2 mg/dL) Urine Leukocyte Esterase Large (NEG) Urine RBC 3-5 /HPF (0-2) Urine WBC 11-20 /HPF (0-4) Urine Bacteria Few /HPF (0-FEW) Urine Yeast Present /HPF Laboratory Tests Test 10/14/19 12:12 10/14/19 12:20 10/14/19 12:38 10/14/19 13:40 Glucose (Fingerstick) 85 mg/dL (70-99) 101 mg/dL (70-99) White Blood Count 7.8 x10^3/uL (4.0-11.0) Red Blood Count 3.26 x10^6/uL (3.50-5.40) Hemoglobin 8.6 g/dL (12.0-15.5) Hematocrit 27.0 % (36.0-47.0) Mean Corpuscular Volume 83 fL (79-100) Mean Corpuscular Hemoglobin 26 pg (25-35) Mean Corpuscular Hemoglobin Concent 32 g/dL (31-37) Red Cell Distribution Width 23.2 % (11.5-14.5) Platelet Count 380 x10^3/uL (140-400) Neutrophils (%) (Auto) 64 % (31-73) Lymphocytes (%) (Auto) 23 % (24-48) Monocytes (%) (Auto) 9 % (0-9) Eosinophils (%) (Auto) 4 % (0-3) Basophils (%) (Auto) 0 % (0-3) Neutrophils # (Auto) 5.0 x10^3/uL (1.8-7.7) Lymphocytes # (Auto) 1.8 x10^3/uL (1.0-4.8) Monocytes # (Auto) 0.7 x10^3/uL (0.0-1.1) Eosinophils # (Auto) 0.3 x10^3/uL (0.0-0.7) Basophils # (Auto) 0.0 x10^3/uL (0.0-0.2) Platelet Estimate Adequate (ADEQUATE) Anisocytosis Slight Sodium Level 142 mmol/L (136-145) Potassium Level 4.8 mmol/L (3.5-5.1) Chloride Level 106 mmol/L (98-107) Carbon Dioxide Level 28 mmol/L (21-32) Anion Gap 8 (6-14) Blood Urea Nitrogen 55 mg/dL (7-20) Creatinine 2.3 mg/dL (0.6-1.0) Estimated GFR (Cockcroft-Gault) 20.5 BUN/Creatinine Ratio 24 (6-20) Glucose Level 83 mg/dL (70-99) Lactic Acid Level 3.1 mmol/L (0.4-2.0) Calcium Level 9.3 mg/dL (8.5-10.1) Total Bilirubin 0.2 mg/dL (0.2-1.0) Aspartate Amino Transf (AST/SGOT) 23 U/L (15-37) Alanine Aminotransferase (ALT/SGPT) 15 U/L (14-59) Alkaline Phosphatase 85 U/L (46-116) Total Protein 7.2 g/dL (6.4-8.2) Albumin 3.1 g/dL (3.4-5.0) Albumin/Globulin Ratio 0.8 (1.0-1.7) Urine Collection Type U cath Urine Color Yellow Urine Clarity Hazy Urine pH 5.0 (<5.0-8.0) Urine Specific Pierce 1.015 (1.000-1.030) Urine Protein Negative mg/dL (NEG-TRACE) Urine Glucose (UA) Negative mg/dL (NEG) Urine Ketones (Stick) Negative mg/dL (NEG) Urine Blood Moderate (NEG) Urine Nitrite Negative (NEG) Urine Bilirubin Negative (NEG) Urine Urobilinogen Dipstick 0.2 mg/dL (0.2 mg/dL) Urine Leukocyte Esterase Large (NEG) Urine RBC 3-5 /HPF (0-2) Urine WBC 11-20 /HPF (0-4) Urine Bacteria Few /HPF (0-FEW) Urine Yeast Present /HPF Images Images STATUS: REG ER ORD. PHYSICIAN: DANICA ABRAMS MD REASON: WEAK PROCEDURE: PORTABLE CHEST 1V EXAM: CHEST 1 VIEW History: Weakness COMPARISON: 09/06/2019 TECHNIQUE: Single portable radiograph of the chest FINDINGS: The cardiac silhouette is unremarkable. The lungs are clear bilaterally. The costophrenic sulci are clear and well demarcated. IMPRESSION: No radiographic evidence of an acute cardiopulmonary process. Electronically signed by: Wei Tobin MD (10/14/2019 1:16 PM) [id number] DICTATED and SIGNED BY: WEI TOBIN MD DATE: 10/14/19 1316 VTE Prophylaxis Ordered VTE Prophylaxis Devices: Yes VTE Pharmacological Prophylaxi: Yes Assessment/Plan Assessment/Plan Impression: UTI (urinary tract infection) MORBID OBESITY Acute renal failure DEHYDRATION normocytic anemia plan ADMITTED Consult nephrology iv antibiotics, EMPERIC IV FLUID SUPPORT AM BMP nephrology consult HOLD ALLOPURINOL AND LOSARTEN DUE TO BOBBY D/W ER DR Adametion of Admission Dx: Justifications for Admission: Justification of Admission Dx: Yes Acute Renal Failure: RF Can't Be Managed Outpt Chronic Renal Failure: Renail Failure MARTY JACQUES MD Oct 14, 2019 15:08
[2019-10-14] MEDS: IV NORMAL SALINE 1000ML BAG 1,000 ML IV SCH (15:19)
[2019-10-14] MEDS ORDERED: FURO40TA4 PO (15:42)
[2019-10-14 19:00] VITALS: BP 113/49
[2019-10-14] MEDS ORDERED: ALBUTEROL SULFATE 2.5 MG/3 ML NEBU. NEB PRN (20:15)
[2019-10-14] MEDS ORDERED: guaiFENesin ORAL 200 MG/10 ML LIQUID. PO PRN (20:15)
[2019-10-14] MEDS ORDERED: SODIUM PHOSPHATES 19/7GM 133 ML ENEMA. PR PRN (20:15)
[2019-10-14] MEDS ORDERED: MAG HYDROX/ALUMINUM HYD/SIMETH 30 ML ORAL.SUSP PO PRN (20:15)
[2019-10-14] MEDS ORDERED: 0.9 % SODIUM CHLORIDE 10 ML DISP.SYRIN. IV PRN (20:15)
[2019-10-14] MEDS ORDERED: ONDANSETRON PF 4 MG/2 ML VIAL. IV PRN (20:15)
[2019-10-14] MEDS ORDERED: ACETAMINOPHEN 325 MG TABLET. PO PRN ×2 (20:15)
[2019-10-14] MEDS: ATORVASTATIN CALCIUM 40 MG TABLET. PO SCH (21:13)
[2019-10-14] MEDS: NYSTATIN TOPICAL POWDER 15GM BOTTLE. TP SCH (21:13)
[2019-10-14 23:00] VITALS: BP 127/53
[2019-10-15 03:00] VITALS: BP 124/46
[2019-10-15] MEDS: IV NORMAL SALINE 1000ML BAG 1,000 ML IV SCH (03:19)
[2019-10-15 05:36] LABS: CREATININE 1.8 mg/dL (0.6-1.0); GFR 27.2; POTASSIUM 5.1 mmol/L (3.5-5.1)
[2019-10-15] MEDS: PANTOPRAZOLE 40 MG TABLET.DR. PO SCH (06:31)
[2019-10-15 07:00] VITALS: BP 114/42
[2019-10-15] MEDS: ACETAMINOPHEN 325 MG TABLET. PO PRN (07:09)
[2019-10-15] MEDS: NYSTATIN TOPICAL POWDER 15GM BOTTLE. TP SCH ×4 (08:29→21:39)
[2019-10-15] MEDS ORDERED: ENOXAPARIN 30 MG/0.3 ML SYRINGE. SQ SCH (09:00)
--- NOTE | 2019-10-15 09:07 | PDOC ---
PROGRESS NOTES Chief Complaint Chief Complaint VTE Prophylaxis Ordered VTE Prophylaxis Devices: Yes VTE Pharmacological Prophylaxi: Yes Assessment/Plan Assessment/Plan Impression: UTI (urinary tract infection) MORBID OBESITY Acute renal failure DEHYDRATION normocytic anemia plan ADMITTED Consult nephrology iv antibiotics, EMPERIC IV FLUID SUPPORT AM [facility] nephrology consult HOLD ALLOPURINOL AND LOSARTEN DUE TO BOBBY follow renal fx closely History of Present Illness History of Present Illness SEEN IN ER WITH HYPOGLYCEMIA patient has chronic left hip pain was admitted, had rehab now pain is increasing again has bilateral foot burning pain denies medications for this. no fever, no cough. no chest pain. NOTES little dizzy when she stood up so gave tube oral glucose came up from 59 to 85. ate breakfast at six am. used insulin at 5 am. insulin used sliding scale at meals normally. 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 [] HENT: Normocephalic, atraumatic, bilateral external ears normal, oropharynx moist, no oral exudates, nose normal. [] Eyes: PERRLA, EOMI, conjunctiva normal, no discharge. [] Neck: Normal range of motion, no tenderness, supple, no stridor. [] Cardiovascular:Heart rate regular rhythm, no murmur [] Lungs & Thorax: Bilateral breath sounds clear to auscultation [] Abdomen: Bowel sounds normal, soft, no tenderness, no masses, no pulsatile masses. [] Skin: Warm, dry, no erythema, no rash. [] Back: No tenderness, no CVA tenderness. [] Extremities: No tenderness, no cyanosis, no clubbing, ROM intact, no edema. [] Neurologic: Alert and oriented X 3, normal motor function, normal sensory function, no focal deficits noted. [] Psychologic: Affect normal, judgement normal, mood normal. [] General: Alert, Oriented X3, Cooperative, No acute distress HEENT: Atraumatic, PERRLA, EOMI, Mucous membr. moist/pink Heart: RRR, no thrills Breasts: Not examined Abdomen: Soft Rectal Exam: not examined Extremities: No cyanosis Neuro: Normal speech, Strength at 5/5 X4 ext, Sensation intact, Cranial nerves 3-12 NL Psych/Mental Status: Mental status NL, Mood NL General: Alert, Oriented X3, Cooperative, No acute distress Heart: Regular rate, Normal S1, Normal S2 Lungs: Clear Abdomen: Normal bowel sounds, Soft, No tenderness Extremities: No clubbing, No cyanosis Labs LABS EXAM: CHEST 1 VIEW History: Weakness COMPARISON: 09/06/2019 TECHNIQUE: Single portable radiograph of the chest FINDINGS: The cardiac silhouette is unremarkable. The lungs are clear bilaterally. The costophrenic sulci are clear and well demarcated. IMPRESSION: No radiographic evidence of an acute cardiopulmonary process. Electronically signed by: Wei Tobin MD (10/14/2019 1:16 PM) [id number] DICTATED and SIGNED BY: WEI TOBIN MD DATE: 10/14/19 1316 Laboratory Tests Test 10/14/19 12:12 10/14/19 12:20 10/14/19 12:38 10/14/19 13:40 Glucose (Fingerstick) 85 mg/dL (70-99) 101 mg/dL (70-99) White Blood Count 7.8 x10^3/uL (4.0-11.0) Red Blood Count 3.26 x10^6/uL (3.50-5.40) Hemoglobin 8.6 g/dL (12.0-15.5) Hematocrit 27.0 % (36.0-47.0) Mean Corpuscular Volume 83 fL (79-100) Mean Corpuscular Hemoglobin 26 pg (25-35) Mean Corpuscular Hemoglobin Concent 32 g/dL (31-37) Red Cell Distribution Width 23.2 % (11.5-14.5) Platelet Count 380 x10^3/uL (140-400) Neutrophils (%) (Auto) 64 % (31-73) Lymphocytes (%) (Auto) 23 % (24-48) Monocytes (%) (Auto) 9 % (0-9) Eosinophils (%) (Auto) 4 % (0-3) Basophils (%) (Auto) 0 % (0-3) Neutrophils # (Auto) 5.0 x10^3/uL (1.8-7.7) Lymphocytes # (Auto) 1.8 x10^3/uL (1.0-4.8) Monocytes # (Auto) 0.7 x10^3/uL (0.0-1.1) Eosinophils # (Auto) 0.3 x10^3/uL (0.0-0.7) Basophils # (Auto) 0.0 x10^3/uL (0.0-0.2) Platelet Estimate Adequate (ADEQUATE) Anisocytosis Slight Sodium Level 142 mmol/L (136-145) Potassium Level 4.8 mmol/L (3.5-5.1) Chloride Level 106 mmol/L (98-107) Carbon Dioxide Level 28 mmol/L (21-32) Anion Gap 8 (6-14) Blood Urea Nitrogen 55 mg/dL (7-20) Creatinine 2.3 mg/dL (0.6-1.0) Estimated GFR (Cockcroft-Gault) 20.5 BUN/Creatinine Ratio 24 (6-20) Glucose Level 83 mg/dL (70-99) Lactic Acid Level 3.1 mmol/L (0.4-2.0) Calcium Level 9.3 mg/dL (8.5-10.1) Total Bilirubin 0.2 mg/dL (0.2-1.0) Aspartate Amino Transf (AST/SGOT) 23 U/L (15-37) Alanine Aminotransferase (ALT/SGPT) 15 U/L (14-59) Alkaline Phosphatase 85 U/L (46-116) Total Protein 7.2 g/dL (6.4-8.2) Albumin 3.1 g/dL (3.4-5.0) Albumin/Globulin Ratio 0.8 (1.0-1.7) Urine Collection Type U cath Urine Color Yellow Urine Clarity Hazy Urine pH 5.0 (<5.0-8.0) Urine Specific [place] 1.015 (1.000-1.030) Urine Protein Negative mg/dL (NEG-TRACE) Urine Glucose (UA) Negative mg/dL (NEG) Urine Ketones (Stick) Negative mg/dL (NEG) Urine Blood Moderate (NEG) Urine Nitrite Negative (NEG) Urine Bilirubin Negative (NEG) Urine Urobilinogen Dipstick 0.2 mg/dL (0.2 mg/dL) Urine Leukocyte Esterase Large (NEG) Urine RBC 3-5 /HPF (0-2) Urine WBC 11-20 /HPF (0-4) Urine Bacteria Few /HPF (0-FEW) Urine Yeast Present /HPF Test 10/14/19 16:04 10/14/19 17:55 10/14/19 21:27 10/15/19 04:19 Glucose (Fingerstick) 135 mg/dL (70-99) 161 mg/dL (70-99) Lactic Acid Level 1.9 mmol/L (0.4-2.0) Sodium Level 140 mmol/L (136-145) Potassium Level 5.1 mmol/L (3.5-5.1) Chloride Level 107 mmol/L (98-107) Carbon Dioxide Level 25 mmol/L (21-32) Anion Gap 8 (6-14) Blood Urea Nitrogen 47 mg/dL (-20) Creatinine 1.8 mg/dL (0.6-1.0) Estimated GFR (Cockcroft-Gault) 27.2 Glucose Level 140 mg/dL (70-99) Calcium Level 8.0 mg/dL (8.5-10.1) Test 10/15/19 07:24 Glucose (Fingerstick) 135 mg/dL (70-99) Assessment and Plan Assessmemt and Plan Problems Medical Problems: (1) Acute renal failure Status: Acute Comment Review of Relevant I have reviewed the following items edis (where applicable) has been applied. Labs Laboratory Tests Test 10/14/19 12:12 10/14/19 12:20 10/14/19 12:38 10/14/19 13:40 Glucose (Fingerstick) 85 mg/dL (70-99) 101 mg/dL (70-99) White Blood Count 7.8 x10^3/uL (4.0-11.0) Red Blood Count 3.26 x10^6/uL (3.50-5.40) Hemoglobin 8.6 g/dL (12.0-15.5) Hematocrit 27.0 % (36.0-47.0) Mean Corpuscular Volume 83 fL (79-100) Mean Corpuscular Hemoglobin 26 pg (25-35) Mean Corpuscular Hemoglobin Concent 32 g/dL (31-37) Red Cell Distribution Width 23.2 % (11.5-14.5) Platelet Count 380 x10^3/uL (140-400) Neutrophils (%) (Auto) 64 % (31-73) Lymphocytes (%) (Auto) 23 % (24-48) Monocytes (%) (Auto) 9 % (0-9) Eosinophils (%) (Auto) 4 % (0-3) Basophils (%) (Auto) 0 % (0-3) Neutrophils # (Auto) 5.0 x10^3/uL (1.8-7.7) Lymphocytes # (Auto) 1.8 x10^3/uL (1.0-4.8) Monocytes # (Auto) 0.7 x10^3/uL (0.0-1.1) Eosinophils # (Auto) 0.3 x10^3/uL (0.0-0.7) Basophils # (Auto) 0.0 x10^3/uL (0.0-0.2) Platelet Estimate Adequate (ADEQUATE) Anisocytosis Slight Sodium Level 142 mmol/L (136-145) Potassium Level 4.8 mmol/L (3.5-5.1) Chloride Level 106 mmol/L (98-107) Carbon Dioxide Level 28 mmol/L (21-32) Anion Gap 8 (6-14) Blood Urea Nitrogen 55 mg/dL (7-20) Creatinine 2.3 mg/dL (0.6-1.0) Estimated GFR (Cockcroft-Gault) 20.5 BUN/Creatinine Ratio 24 (6-20) Glucose Level 83 mg/dL (70-99) Lactic Acid Level 3.1 mmol/L (0.4-2.0) Calcium Level 9.3 mg/dL (8.5-10.1) Total Bilirubin 0.2 mg/dL (0.2-1.0) Aspartate Amino Transf (AST/SGOT) 23 U/L (15-37) Alanine Aminotransferase (ALT/SGPT) 15 U/L (14-59) Alkaline Phosphatase 85 U/L (46-116) Total Protein 7.2 g/dL (6.4-8.2) Albumin 3.1 g/dL (3.4-5.0) Albumin/Globulin Ratio 0.8 (1.0-1.7) Urine Collection Type U cath Urine Color Yellow Urine Clarity Hazy Urine pH 5.0 (<5.0-8.0) Urine Specific [place] 1.015 (1.000-1.030) Urine Protein Negative mg/dL (NEG-TRACE) Urine Glucose (UA) Negative mg/dL (NEG) Urine Ketones (Stick) Negative mg/dL (NEG) Urine Blood Moderate (NEG) Urine Nitrite Negative (NEG) Urine Bilirubin Negative (NEG) Urine Urobilinogen Dipstick 0.2 mg/dL (0.2 mg/dL) Urine Leukocyte Esterase Large (NEG) Urine RBC 3-5 /HPF (0-2) Urine WBC 11-20 /HPF (0-4) Urine Bacteria Few /HPF (0-FEW) Urine Yeast Present /HPF Test 10/14/19 16:04 10/14/19 17:55 10/14/19 21:27 10/15/19 04:19 Glucose (Fingerstick) 135 mg/dL (70-99) 161 mg/dL (70-99) Lactic Acid Level 1.9 mmol/L (0.4-2.0) Sodium Level 140 mmol/L (136-145) Potassium Level 5.1 mmol/L (3.5-5.1) Chloride Level 107 mmol/L (98-107) Carbon Dioxide Level 25 mmol/L (21-32) Anion Gap 8 (6-14) Blood Urea Nitrogen 47 mg/dL (7-20) Creatinine 1.8 mg/dL (0.6-1.0) Estimated GFR (Cockcroft-Gault) 27.2 Glucose Level 140 mg/dL (70-99) Calcium Level 8.0 mg/dL (8.5-10.1) Test 10/15/19 07:24 Glucose (Fingerstick) 135 mg/dL (70-99) Laboratory Tests Test 10/14/19 12:12 10/14/19 12:20 10/14/19 12:38 10/14/19 13:40 Glucose (Fingerstick) 85 mg/dL (70-99) 101 mg/dL (70-99) White Blood Count 7.8 x10^3/uL (4.0-11.0) Red Blood Count 3.26 x10^6/uL (3.50-5.40) Hemoglobin 8.6 g/dL (12.0-15.5) Hematocrit 27.0 % (36.0-47.0) Mean Corpuscular Volume 83 fL (79-100) Mean Corpuscular Hemoglobin 26 pg (25-35) Mean Corpuscular Hemoglobin Concent 32 g/dL (31-37) Red Cell Distribution Width 23.2 % (11.5-14.5) Platelet Count 380 x10^3/uL (140-400) Neutrophils (%) (Auto) 64 % (31-73) Lymphocytes (%) (Auto) 23 % (24-48) Monocytes (%) (Auto) 9 % (0-9) Eosinophils (%) (Auto) 4 % (0-3) Basophils (%) (Auto) 0 % (0-3) Neutrophils # (Auto) 5.0 x10^3/uL (1.8-7.7) Lymphocytes # (Auto) 1.8 x10^3/uL (1.0-4.8) Monocytes # (Auto) 0.7 x10^3/uL (0.0-1.1) Eosinophils # (Auto) 0.3 x10^3/uL (0.0-0.7) Basophils # (Auto) 0.0 x10^3/uL (0.0-0.2) Platelet Estimate Adequate (ADEQUATE) Anisocytosis Slight Sodium Level 142 mmol/L (136-145) Potassium Level 4.8 mmol/L (3.5-5.1) Chloride Level 106 mmol/L (98-107) Carbon Dioxide Level 28 mmol/L (21-32) Anion Gap 8 (6-14) Blood Urea Nitrogen 55 mg/dL (7-20) Creatinine 2.3 mg/dL (0.6-1.0) Estimated GFR (Cockcroft-Gault) 20.5 BUN/Creatinine Ratio 24 (6-20) Glucose Level 83 mg/dL (70-99) Lactic Acid Level 3.1 mmol/L (0.4-2.0) Calcium Level 9.3 mg/dL (8.5-10.1) Total Bilirubin 0.2 mg/dL (0.2-1.0) Aspartate Amino Transf (AST/SGOT) 23 U/L (15-37) Alanine Aminotransferase (ALT/SGPT) 15 U/L (14-59) Alkaline Phosphatase 85 U/L (46-116) Total Protein 7.2 g/dL (6.4-8.2) Albumin 3.1 g/dL (3.4-5.0) Albumin/Globulin Ratio 0.8 (1.0-1.7) Urine Collection Type U cath Urine Color Yellow Urine Clarity Hazy Urine pH 5.0 (<5.0-8.0) Urine Specific [place] 1.015 (1.000-1.030) Urine Protein Negative mg/dL (NEG-TRACE) Urine Glucose (UA) Negative mg/dL (NEG) Urine Ketones (Stick) Negative mg/dL (NEG) Urine Blood Moderate (NEG) Urine Nitrite Negative (NEG) Urine Bilirubin Negative (NEG) Urine Urobilinogen Dipstick 0.2 mg/dL (0.2 mg/dL) Urine Leukocyte Esterase Large (NEG) Urine RBC 3-5 /HPF (0-2) Urine WBC 11-20 /HPF (0-4) Urine Bacteria Few /HPF (0-FEW) Urine Yeast Present /HPF Test 10/14/19 16:04 10/14/19 17:55 10/14/19 21:27 10/15/19 04:19 Glucose (Fingerstick) 135 mg/dL (70-99) 161 mg/dL (70-99) Lactic Acid Level 1.9 mmol/L (0.4-2.0) Sodium Level 140 mmol/L (136-145) Potassium Level 5.1 mmol/L (3.5-5.1) Chloride Level 107 mmol/L (98-107) Carbon Dioxide Level 25 mmol/L (21-32) Anion Gap 8 (6-14) Blood Urea Nitrogen 47 mg/dL (7-20) Creatinine 1.8 mg/dL (0.6-1.0) Estimated GFR (Cockcroft-Gault) 27.2 Glucose Level 140 mg/dL (70-99) Calcium Level 8.0 mg/dL (8.5-10.1) Test 10/15/19 07:24 Glucose (Fingerstick) 135 mg/dL (70-99) Medications Current Medications Sodium Chloride 500 ml @ 500 mls/hr 1X ONCE IV Last administered on 10/14/19at 12:49; Start 10/14/19 at 12:30; Stop 10/14/19 at 13:29; Status DC Gabapentin (Neurontin) 100 mg 1X STAT PO Last administered on 10/14/19at 12:49; Start 10/14/19 at 12:29; Stop 10/14/19 at 12:31; Status DC Acetaminophen/ Hydrocodone Bitart (Lortab 5/325) 1 tab 1X ONCE PO Last administered on 10/14/19at 12:49; Start 10/14/19 at 12:30; Stop 10/14/19 at 12:33; Status DC Ondansetron HCl (Zofran Odt) 4 mg 1X ONCE PO Last administered on 10/14/19at 12:49; Start 10/14/19 at 12:30; Stop 10/14/19 at 12:33; Status DC Sodium Chloride 1,000 ml @ 75 mls/hr [id number] IV Last administered on 10/15/19at 03:19; Start 10/14/19 at 14:00; Stop 10/15/19 at 13:59 Ceftriaxone Sodium (Rocephin) 1 gm 1X ONCE IVP Last administered on 10/14/19at 14:23; Start 10/14/19 at 14:00; Stop 10/14/19 at 14:01; Status DC Ceftriaxone Sodium (Rocephin) 1 gm Q24H IVP ; Start 10/15/19 at 14:00 Sodium Chloride (Normal Saline Flush) 3 ml QSHIFT PRN IV AFTER MEDS AND BLOOD DRAWS; Start 10/14/19 at 20:15 Ondansetron HCl (Zofran) 4 mg PRN Q4HRS PRN IV NAUSEA/VOMITING; Start 10/14/19 at 20:15 Acetaminophen (Tylenol) 650 mg PRN Q4HRS PRN PO TEMP OVER 100.4F; Start at 20:15; Stop 10/14/19 at 20:26; Status DC Al Hydroxide/Mg Hydroxide (Mylanta Plus Xs) 30 ml PRN DAILY PRN PO HEARTBURN / GAS; Start 10/14/19 at 20:15 Sodium Monofluorophosphate (Fleet Adult) 133 ml PRN DAILY PRN CO CONSTIPATION; Start 10/14/19 at 20:15 Docusate Sodium (Colace) 100 mg PRN BID PRN PO HARD STOOLS; Start 10/14/19 at 20:15 Albuterol Sulfate (Ventolin Neb Soln) 2.5 mg PRN Q4HRS PRN NEB SHORTNESS OF BREATH; Start 10/14/19 at 20:15 Guaifenesin (Robitussin) 200 mg PRN Q4HRS PRN PO COUGH; Start 10/14/19 at 20:15 Enoxaparin Sodium (Lovenox 30mg Syringe) 30 mg Q24H SQ Last administered on 10/15/19at 08:25; Start 10/15/19 at 09:00 Acetaminophen (Tylenol) 325 mg PRN QID PRN PO PAIN MILD; Start 10/14/19 at 20:15 Atorvastatin Calcium (Lipitor) 40 mg QHS PO Last administered on 10/14/19at 21:13; Start 10/14/19 at 21:00 Diltiazem HCl (Cardizem 24hr Cd) 120 mg DAILY PO ; Start 10/15/19 at 09:00 Ergocalciferol (Vitamin D2) 50,000 unit WEEKLY PO ; Start 10/22/19 at 09:00 Pantoprazole Sodium (Protonix) 40 mg DAILY07 PO Last administered on 10/15/19at 06:31; Start 10/15/19 at 07:00 Nystatin (Nystop) 1 melissa QID TP Last administered on 10/15/19at 08:29; Start 10/14/19 at 21:00 Acetaminophen (Tylenol) 650 mg PRN QID PRN PO PAIN MODERATE Last administered on 10/15/19at 07:09; Start 10/14/19 at 20:30 Active Scripts Active Tylenol (Acetaminophen) 325 Mg Tablet 1-2 Tab PO QID PRN Lantus (Insulin Glargine,Hum.rec.anlog) 100 Unit/1 Ml Vial 20 Unit SQ BID 30 Days Cozaar (Losartan Potassium) 25 Mg Tablet 25 Mg PO DAILY Diltiazem 24HR Cd (Diltiazem Hcl) 120 Mg Cap.er.24h 120 Mg PO DAILY Reported Furosemide 40 Mg Tablet 1 Tab PO DAILY Vitamin D2 (Ergocalciferol (Vitamin D2)) 50,000 Unit Capsule 1 Cap PO WEEKLY Pantoprazole Sodium (Pantoprazole Sodium) 40 Mg Tablet.dr 1 Tab PO DAILY Atorvastatin Calcium 40 Mg Tablet 1 Tab PO QHS Allopurinol 300 Mg Tablet 1 Tab PO DAILY Vitals/I & O Vital Sign - Last 24 Hours 10/14/19 10/14/19 10/14/19 10/14/19 12:04 12:40 12:49 13:10 Temp 98.5 98.5 Pulse 89 82 82 Resp 18 19 B/P (MAP) 115/60 (78) 110/84 (93) 121/59 (79) Pulse Ox 98 99 100 99 O2 Delivery Room Air Room Air Room Air Room Air 10/14/19 10/14/19 10/14/19 10/14/19 13:40 14:10 15:00 16:11 Temp 97.7 97.7 Pulse 82 82 86 Resp 17 18 B/P (MAP) 124/65 (84) 122/63 (82) 113/47 (69) Pulse Ox 100 100 100 O2 Delivery Room Air Room Air Room Air Room Air 10/14/19 10/14/19 10/14/19 10/15/19 19:00 19:30 23:00 03:00 Temp 97.8 98.1 98.2 97.8 98.1 98.2 Pulse 89 88 97 Resp 18 18 18 B/P (MAP) 113/49 (70) 127/53 (77) 124/46 (72) Pulse Ox 94 95 96 O2 Delivery Room Air Room Air Room Air Room Air 10/15/19 10/15/19 07:00 07:42 Temp 98.8 98.8 Pulse 95 Resp 18 B/P (MAP) 114/42 (66) Pulse Ox 98 98 O2 Delivery Room Air Room Air Intake and Output 10/14/19 10/14/19 10/15/19 15:00 23:00 07:00 Intake Total 500 ml 60 ml 450 ml Balance 500 ml 60 ml 450 ml Justicifation of Admission Dx: Justifications for Admission: Justification of Admission Dx: Yes Acute Renal Failure: RF Can't Be Managed Outpt Chronic Renal Failure: Renail Failure MARTY JACQUES MD Oct 15, 2019 09:07
--- NOTE | 2019-10-15 10:20 | NUR ---
SW following. Discussed with RN, pt from home alone, room air. PT/OT being ordered. SW will continue to follow.
[2019-10-15 11:00] VITALS: BP 116/48
--- NOTE | 2019-10-15 11:31 | PDOC2 ---
CONSULT Date of Consult Date of Consult DATE: 10/15/19 TIME: 11:22 Reason for Consult Reason for Consult: BOBBY Identification/Chief Complaint Chief Complaint Generalized body ache, nani in both legs Source Source: Chart review, Patient History of Present Illness Reason for Visit: Pt is a 79 yo CF c/o chronic left hip pain getting worse , she has bilateral foot burning pain Denies fever, chills, no cough. no chest pain. Denies N/V . She states she may have UTI . C/O mildly dizzy when she stood up , was Hypoglycemic . Reports decrease Fluid intake She is seen by me as OP, last appt in Jan 2019. She cancelled FU appt due to CoV[facility] (we have been offering Phone/Tele appts ) Past Medical History Cardiovascular: AFIB, HTN, Hyperlipidemia Pulmonary: Pulmonary embolus, Other CENTRAL NERVOUS SYSTEM: Other GI: GI bleed, Other Heme/Onc: Anemia NOS Hepatobiliary: No pertinent hx Psych: No pertinent hx Musculoskeletal: low back pain, Osteoarthritis Rheumatologic: No pertinent hx Infectious disease: No pertinent hx Renal/: Chronic renal insuff Endocrine: Diabetes, Other Past Surgical History Past Surgical History: Cataract Removal, Tonsillectomy, Other Family History Family History: Cancer, Hypertension, Other Social History No ALCOHOL: none Drugs: None Current Problem List Problem List Problems Medical Problems: (1) Acute renal failure Status: Acute Current Medications Current Medications Current Medications Sodium Chloride 500 ml @ 500 mls/hr 1X ONCE IV Last administered on 10/14/19at 12:49; Start 10/14/19 at 12:30; Stop 10/14/19 at 13:29; Status DC Gabapentin (Neurontin) 100 mg 1X STAT PO Last administered on 10/14/19at 12:49; Start 10/14/19 at 12:29; Stop 10/14/19 at 12:31; Status DC Acetaminophen/ Hydrocodone Bitart (Lortab 5/325) 1 tab 1X ONCE PO Last administered on 10/14/19at 12:49; Start 10/14/19 at 12:30; Stop 10/14/19 at 12:33; Status DC Ondansetron HCl (Zofran Odt) 4 mg 1X ONCE PO Last administered on 10/14/19at 12:49; Start 10/14/19 at 12:30; Stop 10/14/19 at 12:33; Status DC Sodium Chloride 1,000 ml @ 75 mls/hr [id number] IV Last administered on 10/15/19at 03:19; Start 10/14/19 at 14:00; Stop 10/15/19 at 13:59 Ceftriaxone Sodium (Rocephin) 1 gm 1X ONCE IVP Last administered on 10/14/19at 14:23; Start 10/14/19 at 14:00; Stop 10/14/19 at 14:01; Status DC Ceftriaxone Sodium (Rocephin) 1 gm Q24H IVP ; Start 10/15/19 at 14:00 Sodium Chloride (Normal Saline Flush) 3 ml QSHIFT PRN IV AFTER MEDS AND BLOOD DRAWS; Start 10/14/19 at 20:15 Ondansetron HCl (Zofran) 4 mg PRN Q4HRS PRN IV NAUSEA/VOMITING; Start 10/14/19 at 20:15 Acetaminophen (Tylenol) 650 mg PRN Q4HRS PRN PO TEMP OVER 100.4F; Start 10/14/19 at 20:15; Stop 10/14/19 at 20:26; Status DC Al Hydroxide/Mg Hydroxide (Mylanta Plus Xs) 30 ml PRN DAILY PRN PO HEARTBURN / GAS; Start 10/14/19 at 20:15 Sodium Monofluorophosphate (Fleet Adult) 133 ml PRN DAILY PRN MD CONSTIPATION; Start 10/14/19 at 20:15 Docusate Sodium (Colace) 100 mg PRN BID PRN PO HARD STOOLS; Start 10/14/19 at 20:15 Albuterol Sulfate (Ventolin Neb Soln) 2.5 mg PRN Q4HRS PRN NEB SHORTNESS OF BREATH; Start 10/14/19 at 20:15 Guaifenesin (Robitussin) 200 mg PRN Q4HRS PRN PO COUGH; Start 10/14/19 at 20:15 Enoxaparin Sodium (Lovenox 30mg Syringe) 30 mg Q24H SQ Last administered on 10/15/19at 08:25; Start 10/15/19 at 09:00 Acetaminophen (Tylenol) 325 mg PRN QID PRN PO PAIN MILD; Start 10/14/19 at 20:15 Atorvastatin Calcium (Lipitor) 40 mg QHS PO Last administered on 10/14/19at 21:1 3; Start 10/14/19 at 21:00 Diltiazem HCl (Cardizem 24hr Cd) 120 mg DAILY PO ; Start 10/15/19 at 09:00 Ergocalciferol (Vitamin D2) 50,000 unit WEEKLY PO ; Start 10/22/19 at 09:00 Pantoprazole Sodium (Protonix) 40 mg DAILY07 PO Last administered on 10/15/19at 06:31; Start 10/15/19 at 07:00 Nystatin (Nystop) 1 melissa QID TP Last administered on 10/15/19at 08:29; Start 10/14/19 at 21:00 Acetaminophen (Tylenol) 650 mg PRN QID PRN PO PAIN MODERATE Last administered on 10/15/19at 07:09; Start 10/14/19 at 20:30 Active Scripts Active Tylenol (Acetaminophen) 325 Mg Tablet 1-2 Tab PO QID PRN Lantus (Insulin Glargine,Hum.rec.anlog) 100 Unit/1 Ml Vial 20 Unit SQ BID 30 Days Cozaar (Losartan Potassium) 25 Mg Tablet 25 Mg PO DAILY Diltiazem 24HR Cd (Diltiazem Hcl) 120 Mg Cap.er.24h 120 Mg PO DAILY Reported Furosemide 40 Mg Tablet 1 Tab PO DAILY Vitamin D2 (Ergocalciferol (Vitamin D2)) 50,000 Unit Capsule 1 Cap PO WEEKLY Pantoprazole Sodium (Pantoprazole Sodium) 40 Mg Tablet.dr 1 Tab PO DAILY Atorvastatin Calcium 40 Mg Tablet 1 Tab PO QHS Allopurinol 300 Mg Tablet 1 Tab PO DAILY Allergies Allergies: Coded Allergies: No Known Drug Allergies (Unverified , 10/24/17) ROS Review of System Per HPI, rest ROS negative Physical Exam Physical Exam General: No acute distress, Morbidly Obese HEENT: Atraumatic, PERRLA, EOMI, Mucous membr. moist/pink Neck Supple Heart: RRR, Lungs CTA, Non labored Abdomen: Soft, Obese Extremities: No cyanosis, Changes of CVI Bilat LE +, Edema Non pitting Neuro: Grossly normal Psych/Mental Status: Mental status NL, Mood NL No Navarro, No CVA or SP tenderness Skin No Rash Vital Signs Vital Signs Date Time Temp Pulse Resp B/P (MAP) Pulse Ox O2 Delivery O2 Flow Rate FiO2 10/15/19 08:12 Room Air 10/15/19 07:42 98 10/15/19 07:00 98.8 95 18 114/42 (39) 98.8 Assessment & Plan BOBBY - suspect vasomotor E-Lytes stable Improving , Continue IVF, Supportive care , avoid nephrotoxins CKD stage 3 last seen in our office in Jan 2019, didint keep fu appt Baseline Cr 1.6-1.8 UTI - per primary Anemia- Drop in Hgb since 2019 , [place] per primary Labs Labs Laboratory Tests Test 10/14/19 12:12 10/14/19 12:20 10/14/19 12:38 10/14/19 13:40 Glucose (Fingerstick) 85 mg/dL (70-99) 101 mg/dL (70-99) White Blood Count 7.8 x10^3/uL (4.0-11.0) Red Blood Count 3.26 x10^6/uL (3.50-5.40) Hemoglobin 8.6 g/dL (12.0-15.5) Hematocrit 27.0 % (36.0-47.0) Mean Corpuscular Volume 83 fL (79-100) Mean Corpuscular Hemoglobin 26 pg (25-35) Mean Corpuscular Hemoglobin Concent 32 g/dL (31-37) Red Cell Distribution Width 23.2 % (11.5-14.5) Platelet Count 380 x10^3/uL (140-400) Neutrophils (%) (Auto) 64 % (31-73) Lymphocytes (%) (Auto) 23 % (24-48) Monocytes (%) (Auto) 9 % (0-9) Eosinophils (%) (Auto) 4 % (0-3) Basophils (%) (Auto) 0 % (0-3) Neutrophils # (Auto) 5.0 x10^3/uL (1.8-7.7) Lymphocytes # (Auto) 1.8 x10^3/uL (1.0-4.8) Monocytes # (Auto) 0.7 x10^3/uL (0.0-1.1) Eosinophils # (Auto) 0.3 x10^3/uL (0.0-0.7) Basophils # (Auto) 0.0 x10^3/uL (0.0-0.2) Platelet Estimate Adequate (ADEQUATE) Anisocytosis Slight Sodium Level 142 mmol/L (136-145) Potassium Level 4.8 mmol/L (3.5-5.1) Chloride Level 106 mmol/L (98-107) Carbon Dioxide Level 28 mmol/L (21-32) Anion Gap 8 (6-14) Blood Urea Nitrogen 55 mg/dL (7-20) Creatinine 2.3 mg/dL (0.6-1.0) Estimated GFR (Cockcroft-Gault) 20.5 BUN/Creatinine Ratio 24 (6-20) Glucose Level 83 mg/dL (70-99) Lactic Acid Level 3.1 mmol/L (0.4-2.0) Calcium Level 9.3 mg/dL (8.5-10.1) Total Bilirubin 0.2 mg/dL (0.2-1.0) Aspartate Amino Transf (AST/SGOT) 23 U/L (15-37) Alanine Aminotransferase (ALT/SGPT) 15 U/L (14-59) Alkaline Phosphatase 85 U/L (46-116) Total Protein 7.2 g/dL (6.4-8.2) Albumin 3.1 g/dL (3.4-5.0) Albumin/Globulin Ratio 0.8 (1.0-1.7) Urine Collection Type U cath Urine Color Yellow Urine Clarity Hazy Urine pH 5.0 (<5.0-8.0) Urine Specific Gordon 1.015 (1.000-1.030) Urine Protein Negative mg/dL (NEG-TRACE) Urine Glucose (UA) Negative mg/dL (NEG) Urine Ketones (Stick) Negative mg/dL (NEG) Urine Blood Moderate (NEG) Urine Nitrite Negative (NEG) Urine Bilirubin Negative (NEG) Urine Urobilinogen Dipstick 0.2 mg/dL (0.2 mg/dL) Urine Leukocyte Esterase Large (NEG) Urine RBC 3-5 /HPF (0-2) Urine WBC 11-20 /HPF (0-4) Urine Bacteria Few /HPF (0-FEW) Urine Yeast Present /HPF Test 10/14/19 16:04 10/14/19 17:55 10/14/19 21:27 10/15/19 04:19 Glucose (Fingerstick) 135 mg/dL (70-99) 161 mg/dL (70-99) Lactic Acid Level 1.9 mmol/L (0.4-2.0) Sodium Level 140 mmol/L (136-145) Potassium Level 5.1 mmol/L (3.5-5.1) Chloride Level 107 mmol/L (98-107) Carbon Dioxide Level 25 mmol/L (21-32) Anion Gap 8 (6-14) Blood Urea Nitrogen 47 mg/dL (7-20) Creatinine 1.8 mg/dL (0.6-1.0) Estimated GFR (Cockcroft-Gault) 27.2 Glucose Level 140 mg/dL (70-99) Calcium Level 8.0 mg/dL (8.5-10.1) Test 10/15/19 07:24 Glucose (Fingerstick) 135 mg/dL (70-99) Laboratory Tests Test 10/14/19 12:12 10/14/19 12:20 10/14/19 12:38 10/14/19 13:40 Glucose (Fingerstick) 85 mg/dL (70-99) 101 mg/dL (70-99) White Blood Count 7.8 x10^3/uL (4.0-11.0) Red Blood Count 3.26 x10^6/uL (3.50-5.40) Hemoglobin 8.6 g/dL (12.0-15.5) Hematocrit 27.0 % (36.0-47.0) Mean Corpuscular Volume 83 fL (79-100) Mean Corpuscular Hemoglobin 26 pg (25-35) Mean Corpuscular Hemoglobin Concent 32 g/dL (31-37) Red Cell Distribution Width 23.2 % (11.5-14.5) Platelet Count 380 x10^3/uL (140-400) Neutrophils (%) (Auto) 64 % (31-73) Lymphocytes (%) (Auto) 23 % (24-48) Monocytes (%) (Auto) 9 % (0-9) Eosinophils (%) (Auto) 4 % (0-3) Basophils (%) (Auto) 0 % (0-3) Neutrophils # (Auto) 5.0 x10^3/uL (1.8-7.7) Lymphocytes # (Auto) 1.8 x10^3/uL (1.0-4.8) Monocytes # (Auto) 0.7 x10^3/uL (0.0-1.1) Eosinophils # (Auto) 0.3 x10^3/uL (0.0-0.7) Basophils # (Auto) 0.0 x10^3/uL (0.0-0.2) Platelet Estimate Adequate (ADEQUATE) Anisocytosis Slight Sodium Level 142 mmol/L (136-145) Potassium Level 4.8 mmol/L (3.5-5.1) Chloride Level 106 mmol/L (98-107) Carbon Dioxide Level 28 mmol/L (21-32) Anion Gap 8 (6-14) Blood Urea Nitrogen 55 mg/dL (7-20) Creatinine 2.3 mg/dL (0.6-1.0) Estimated GFR (Cockcroft-Gault) 20.5 BUN/Creatinine Ratio 24 (6-20) Glucose Level 83 mg/dL (70-99) Lactic Acid Level 3.1 mmol/L (0.4-2.0) Calcium Level 9.3 mg/dL (8.5-10.1) Total Bilirubin 0.2 mg/dL (0.2-1.0) Aspartate Amino Transf (AST/SGOT) 23 U/L (15-37) Alanine Aminotransferase (ALT/SGPT) 15 U/L (14-59) Alkaline Phosphatase 85 U/L (46-116) Total Protein 7.2 g/dL (6.4-8.2) Albumin 3.1 g/dL (3.4-5.0) Albumin/Globulin Ratio 0.8 (1.0-1.7) Urine Collection Type U cath Urine Color Yellow Urine Clarity Hazy Urine pH 5.0 (<5.0-8.0) Urine Specific Gordon 1.015 (1.000-1.030) Urine Protein Negative mg/dL (NEG-TRACE) Urine Glucose (UA) Negative mg/dL (NEG) Urine Ketones (Stick) Negative mg/dL (NEG) Urine Blood Moderate (NEG) Urine Nitrite Negative (NEG) Urine Bilirubin Negative (NEG) Urine Urobilinogen Dipstick 0.2 mg/dL (0.2 mg/dL) Urine Leukocyte Esterase Large (NEG) Urine RBC 3-5 /HPF (0-2) Urine WBC 11-20 /HPF (0-4) Urine Bacteria Few /HPF (0-FEW) Urine Yeast Present /HPF Test 10/14/19 16:04 10/14/19 17:55 10/14/19 21:27 10/15/19 04:19 Glucose (Fingerstick) 135 mg/dL (70-99) 161 mg/dL (70-99) Lactic Acid Level 1.9 mmol/L (0.4-2.0) Sodium Level 140 mmol/L (136-145) Potassium Level 5.1 mmol/L (3.5-5.1) Chloride Level 107 mmol/L (98-107) Carbon Dioxide Level 25 mmol/L (21-32) Anion Gap 8 (6-14) Blood Urea Nitrogen 47 mg/dL (7-20) Creatinine 1.8 mg/dL (0.6-1.0) Estimated GFR (Cockcroft-Gault) 27.2 Glucose Level 140 mg/dL (70-99) Calcium Level 8.0 mg/dL (8.5-10.1) Test 10/15/19 07:24 Glucose (Fingerstick) 135 mg/dL (70-99) Review All relevant outside records, renal labs, imaging studies, telemetry/EKG's were reviewed. Images Images CxR-- IMPRESSION: No radiographic evidence of an acute cardiopulmonary process. MEREDITH CULP MD Oct 15, 2019 11:31
--- NOTE | 2019-10-15 13:44 | PDOC2 ---
GI CONSULT Reason For Consult: anemia HPI: HPI: Pleasant 79 y/o female who we have seen in the past. Tells me she's here because of left hip pain and a bladder infection. Has no GI complaints. No GI concerns per nurse. H/o GERD controlled w/ PPI. No dysphagia, n/v, abd pain, diarrhea, constipation, hematochezia, melena, change in appetite, or weight loss. Chronic anemia. When last discharge in 08/2019, Hgb in 7s. 8.6 now. Iron deficient in 2018 w/ normal B12. 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 On PO iron BID. EGD [place] [address] Mittal w/ mireille stomach/gastropathy. Follow-up CT unrevealing for portal hypertension/cirrhosis. Had a colonoscopy in 2007 w/ hemorrhoids - she thinks she's maybe had one since but isn't sure. H/o PE (?and A Fib) on Coumadin. No GB or pancreas history. No NSAIDs. PMH: PMH: A Fib, PE, HTN, HLD, DM, CARMEN, urosepsis, retinopathy, lymphedema, CKD chest tube, tonsillectomy FH: Family History: No pertinent hx Social History: Smoke: No ALCOHOL: none Drugs: None ROS: GEN: Denies fevers, chills, sweats HEENT: Denies blurred vision, sore throat CV: Denies chest pain RESP: Denies shortness of air, cough GI: Per HPI : Denies hematuria, dysuria ENDO: Denies weight changes NEURO: Denies confusion, dizziness MSK: hip pain, weakness SKIN: Denies jaundice, pruritus Vitals: Vitals: Vital Signs Date Time Temp Pulse Resp B/P (MAP) Pulse Ox O2 Delivery O2 Flow Rate FiO2 10/15/19 11:00 98.8 98 18 116/48 (70) 97 Room Air 98.8 Labs: Labs: Laboratory Tests Test 10/14/19 13:40 10/14/19 16:04 10/14/19 17:55 10/14/19 21:27 Glucose (Fingerstick) 101 mg/dL (70-99) 135 mg/dL (70-99) 161 mg/dL (70-99) Lactic Acid Level 1.9 mmol/L (0.4-2.0) Test 10/15/19 04:19 10/15/19 07:24 10/15/19 11:40 10/15/19 12:45 Sodium Level 140 mmol/L (136-145) Potassium Level 5.1 mmol/L (3.5-5.1) Chloride Level 107 mmol/L (98-107) Carbon Dioxide Level 25 mmol/L (21-32) Anion Gap 8 (6-14) Blood Urea Nitrogen 47 mg/dL (7-20) Creatinine 1.8 mg/dL (0.6-1.0) Estimated GFR (Cockcroft-Gault) 27.2 Glucose Level 140 mg/dL (70-99) Calcium Level 8.0 mg/dL (8.5-10.1) Glucose (Fingerstick) 135 mg/dL (70-99) 135 mg/dL (70-99) Iron Level 23 ug/dL (50-170) Total Iron Binding Capacity 215 ug/dL (250-450) Iron Saturation 11 % (15-34) BLOOD CULTURE Final GRAM POSITIVE COCCI IN CLUSTERS, SUGGESTIVE OF STAPH, IN 1 OF 4 BOTTLES, TWO SETS DRAWN. URINE CULTURE Final Final No Growth on 10/15/19 at 0947 Allergies: Coded Allergies: No Known Drug Allergies (Unverified , 10/24/17) Medications: Current Medications Medications (Trade) Dose Ordered Sig/Angy Route PRN Reason Start Time Stop Time Status Last Admin Dose Admin Sodium Chloride 1,000 ml @ 75 mls/hr [id number] IV 10/14/19 14:00 10/15/19 13:59 10/15/19 03:19 Ceftriaxone Sodium (Rocephin) 1 gm 1X ONCE IVP 10/14/19 14:00 10/14/19 14:01 DC 10/14/19 14:23 Enoxaparin Sodium (Lovenox 30mg Syringe) 30 mg Q24H SQ 10/15/19 09:00 10/15/19 08:25 Atorvastatin Calcium (Lipitor) 40 mg QHS PO 10/14/19 21:00 10/14/19 21:13 Pantoprazole Sodium (Protonix) 40 mg DAILY07 PO 10/15/19 07:00 10/15/19 06:31 Nystatin (Nystop) 1 melissa QID TP 10/14/19 21:00 10/15/19 08:29 Acetaminophen (Tylenol) 650 mg PRN QID PRN PO PAIN MODERATE 10/14/19 20:30 10/15/19 07:09 Imaging: Imaging: CXR 10/13 IMPRESSION: No radiographic evidence of an acute cardiopulmonary process. PE: GEN: NAD, was asleep HEENT: Atraumatic, PERRL LUNGS: CTAB anteriorly HEART: RR ABD: NABS, S/ND/NT EXTREMITY: BLE edema SKIN: No rashes, no jaundice NEURO/PSYCH: A & O 3 A/P: A/P: Left hip pain, ?UTI, GPC bacteremia Chronic anemia - on PO iron GERD - on PPI, past EGD per [facility] w/ [facility] stomach CRC screen - 2007? H/o A Fib and PE on Warfarin -- Continue PPI and iron. Will review w/ office for any records of recent colonoscopy. Update - colonoscopy 2017: non-bleeding hemorrhoids, small anal fissure. MARIS RYDER Oct 15, 2019 13:44
[2019-10-15] MEDS: cefTRIAXone IV Push 1 GM VIAL. IVP SCH (14:00)
[2019-10-15 15:00] VITALS: BP 108/30
[2019-10-15 19:00] VITALS: BP 112/36
--- NOTE | 2019-10-15 20:36 | RAD ---
Exam: Ultrasound renal complete Indication: Acute kidney injury Technique: Real-time grayscale and color Doppler images of the kidneys were obtained by the department cartridge feeder. Comparisons: None FINDINGS: Right kidney measures 10.6 cm in length. No hydronephrosis. Left kidney measures 10.1 cm in length. No hydronephrosis. Bladder is distended and appears thin-walled. Bilateral ureteral jets are seen. Aorta and IVC are not well seen secondary to overlying bowel gas. IMPRESSION: No hydronephrosis. Electronically signed by: Kofi Alonzo MD (10/15/2019 8:33 PM) [id number]
[2019-10-15] MEDS: LACTOBACILLUS RHAMNOSUS GG 1 CAPSULE. PO SCH (21:36)
[2019-10-15] MEDS: ATORVASTATIN CALCIUM 40 MG TABLET. PO SCH (21:36)
[2019-10-15] MEDS: ENOXAPARIN 40 MG/0.4 ML SYRINGE. SQ SCH (21:36)
[2019-10-15 23:00] VITALS: BP 129/95
[2019-10-16 03:00] VITALS: BP 123/53
[2019-10-16] MEDS: PANTOPRAZOLE 40 MG TABLET.DR. PO SCH (06:35)
[2019-10-16 07:00] VITALS: BP 106/39
[2019-10-16] MEDS: LACTOBACILLUS RHAMNOSUS GG 1 CAPSULE. PO SCH ×2 (09:37→21:00)
[2019-10-16] MEDS: ENOXAPARIN 40 MG/0.4 ML SYRINGE. SQ SCH ×2 (09:37→21:01)
[2019-10-16] MEDS: NYSTATIN TOPICAL POWDER 15GM BOTTLE. TP SCH ×4 (09:44→21:01)
[2019-10-16 11:00] VITALS: BP 110/40
--- NOTE | 2019-10-16 12:08 | PDOC ---
PROGRESS NOTES Chief Complaint Chief Complaint VTE Prophylaxis Ordered VTE Prophylaxis Devices: Yes VTE Pharmacological Prophylaxi: Yes Assessment/Plan Assessment/Plan Impression: UTI (urinary tract infection) MORBID OBESITY Acute renal failure DEHYDRATION normocytic anemia, CHRONIC BLOOD LOSS ANEMIA plan ADMITTED Consult nephrology iv antibiotics, EMPERIC IV FLUID SUPPORT AM [facility] nephrology consult HOLD ALLOPURINOL AND LOSARTEN DUE TO BOBBY follow renal fx closely D/W RN History of Present Illness History of Present Illness SEEN IN ER WITH HYPOGLYCEMIA patient has chronic left hip pain was admitted, had rehab now pain is increasing again has bilateral foot burning pain denies medications for this. no fever, no cough. no chest pain. NOTES little dizzy when she stood up so gave tube oral glucose came up from 59 to 85. ate breakfast at six am. used insulin at 5 am. insulin used sliding scale at meals normally. 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 [] HENT: Normocephalic, atraumatic, bilateral external ears normal, oropharynx moist, no oral exudates, nose normal. [] Eyes: PERRLA, EOMI, conjunctiva normal, no discharge. [] Neck: Normal range of motion, no tenderness, supple, no stridor. [] Cardiovascular:Heart rate regular rhythm, no murmur [] Lungs & Thorax: Bilateral breath sounds clear to auscultation [] Abdomen: Bowel sounds normal, soft, no tenderness, no masses, no pulsatile masses. [] Skin: Warm, dry, no erythema, no rash. [] Back: No tenderness, no CVA tenderness. [] Extremities: No tenderness, no cyanosis, no clubbing, ROM intact, no edema. [] Neurologic: Alert and oriented X 3, normal motor function, normal sensory function, no focal deficits noted. [] Psychologic: Affect normal, judgement normal, mood normal. [] General: Alert, Oriented X3, Cooperative, No acute distress HEENT: Atraumatic, PERRLA, EOMI, Mucous membr. moist/pink Heart: RRR, no thrills Breasts: Not examined Abdomen: Soft Rectal Exam: not examined Extremities: No cyanosis Neuro: Normal speech, Strength at 5/5 X4 ext, Sensation intact, Cranial nerves 3-12 NL Psych/Mental Status: Mental status NL, Mood NL General: Alert, Oriented X3, Cooperative, No acute distress Heart: Regular rate, Normal S1, Normal S2 Lungs: Clear Abdomen: Normal bowel sounds, Soft, No tenderness Extremities: No clubbing, No cyanosis Labs LABS SEX: F EXAM STATUS: ADM IN ORD. PHYSICIAN: MARTY JACQUES MD REASON: BOBBY; RENAL US NOT ABD COMPLETE PER ROSA ISELA CHOW PROCEDURE: RENAL COMPLETE BILATERAL Exam: Ultrasound renal complete Indication: Acute kidney injury Technique: Real-time grayscale and color Doppler images of the kidneys were obtained by the department head wrestling coach. Comparisons: None FINDINGS: Right kidney measures 10.6 cm in length. No hydronephrosis. Left kidney measures 10.1 cm in length. No hydronephrosis. Bladder is distended and appears thin-walled. Bilateral ureteral jets are seen. Aorta and IVC are not well seen secondary to overlying bowel gas. IMPRESSION: No hydronephrosis. Electronically signed by: Kofi Shirley MD (10/15/2019 8:33 PM) [id number] DICTATED and SIGNED BY: KOFI SHIRLEY MD DATE: 10/15/192032 : 1940 LOCATION: [address] [place] [address] AGE: 79 SEX: F EXAM STATUS: ADM IN ORD. PHYSICIAN: MARTY JACQUES MD REASON: BOBBY; RENAL US NOT ABD COMPLETE PER ROSA ISELA CHOW PROCEDURE: RENAL COMPLETE BILATERAL Exam: Ultrasound renal complete Indication: Acute kidney injury Technique: Real-time grayscale and color Doppler images of the kidneys were obtained by the department head wrestling coach. Comparisons: None FINDINGS: Right kidney measures 10.6 cm in length. No hydronephrosis. Left kidney measures 10.1 cm in length. No hydronephrosis. Bladder is distended and appears thin-walled. Bilateral ureteral jets are seen. Aorta and IVC are not well seen secondary to overlying bowel gas. IMPRESSION: No hydronephrosis. Electronically signed by: Kofi Shirley MD (10/15/2019 8:33 PM) [id number] Laboratory Tests Test 10/15/19 12:45 10/15/19 14:43 10/15/19 16:55 10/15/19 20:31 Iron Level 23 ug/dL (50-170) Total Iron Binding Capacity 215 ug/dL (250-450) Iron Saturation 11 % (15-34) Lactic Acid Level 1.6 mmol/L (0.4-2.0) Glucose (Fingerstick) 128 mg/dL (70-99) 168 mg/dL (70-99) Test 10/16/19 07:54 10/16/19 11:57 Glucose (Fingerstick) 134 mg/dL (70-99) 157 mg/dL (70-99) Assessment and Plan Assessmemt and Plan Problems Medical Problems: (1) Acute renal failure Status: Acute Comment Review of Relevant I have reviewed the following items edis (where applicable) has been applied. Labs Laboratory Tests Test 10/14/19 12:12 10/14/19 12:20 10/14/19 12:38 10/14/19 13:40 Glucose (Fingerstick) 85 mg/dL (70-99) 101 mg/dL (70-99) White Blood Count 7.8 x10^3/uL (4.0-11.0) Red Blood Count 3.26 x10^6/uL (3.50-5.40) Hemoglobin 8.6 g/dL (12.0-15.5) Hematocrit 27.0 % (36.0-47.0) Mean Corpuscular Volume 83 fL (79-100) Mean Corpuscular Hemoglobin 26 pg (25-35) Mean Corpuscular Hemoglobin Concent 32 g/dL (31-37) Red Cell Distribution Width 23.2 % (11.5-14.5) Platelet Count 380 x10^3/uL (140-400) Neutrophils (%) (Auto) 64 % (31-73) Lymphocytes (%) (Auto) 23 % (24-48) Monocytes (%) (Auto) 9 % (0-9) Eosinophils (%) (Auto) 4 % (0-3) Basophils (%) (Auto) 0 % (0-3) Neutrophils # (Auto) 5.0 x10^3/uL (1.8-7.7) Lymphocytes # (Auto) 1.8 x10^3/uL (1.0-4.8) Monocytes # (Auto) 0.7 x10^3/uL (0.0-1.1) Eosinophils # (Auto) 0.3 x10^3/uL (0.0-0.7) Basophils # (Auto) 0.0 x10^3/uL (0.0-0.2) Platelet Estimate Adequate (ADEQUATE) Anisocytosis Slight Sodium Level 142 mmol/L (136-145) Potassium Level 4.8 mmol/L (3.5-5.1) Chloride Level 106 mmol/L (98-107) Carbon Dioxide Level 28 mmol/L (21-32) Anion Gap 8 (6-14) Blood Urea Nitrogen 55 mg/dL (7-20) Creatinine 2.3 mg/dL (0.6-1.0) Estimated GFR (Cockcroft-Gault) 20.5 BUN/Creatinine Ratio 24 (6-20) Glucose Level 83 mg/dL (70-99) Lactic Acid Level 3.1 mmol/L (0.4-2.0) Calcium Level 9.3 mg/dL (8.5-10.1) Total Bilirubin 0.2 mg/dL (0.2-1.0) Aspartate Amino Transf (AST/SGOT) 23 U/L (15-37) Alanine Aminotransferase (ALT/SGPT) 15 U/L (14-59) Alkaline Phosphatase 85 U/L (46-116) Total Protein 7.2 g/dL (6.4-8.2) Albumin 3.1 g/dL (3.4-5.0) Albumin/Globulin Ratio 0.8 (1.0-1.7) Urine Collection Type U cath Urine Color Yellow Urine Clarity Hazy Urine pH 5.0 (<5.0-8.0) Urine Specific [place] 1.015 (1.000-1.030) Urine Protein Negative mg/dL (NEG-TRACE) Urine Glucose (UA) Negative mg/dL (NEG) Urine Ketones (Stick) Negative mg/dL (NEG) Urine Blood Moderate (NEG) Urine Nitrite Negative (NEG) Urine Bilirubin Negative (NEG) Urine Urobilinogen Dipstick 0.2 mg/dL (0.2 mg/dL) Urine Leukocyte Esterase Large (NEG) Urine RBC 3-5 /HPF (0-2) Urine WBC 11-20 /HPF (0-4) Urine Bacteria Few /HPF (0-FEW) Urine Yeast Present /HPF Test 10/14/19 16:04 10/14/19 17:55 10/14/19 21:27 10/15/19 04:19 Glucose (Fingerstick) 135 mg/dL (70-99) 161 mg/dL (70-99) Lactic Acid Level 1.9 mmol/L (0.4-2.0) Sodium Level 140 mmol/L (136-145) Potassium Level 5.1 mmol/L (3.5-5.1) Chloride Level 107 mmol/L (98-107) Carbon Dioxide Level 25 mmol/L (21-32) Anion Gap 8 (6-14) Blood Urea Nitrogen 47 mg/dL (7-20) Creatinine 1.8 mg/dL (0.6-1.0) Estimated GFR (Cockcroft-Gault) 27.2 Glucose Level 140 mg/dL (70-99) Calcium Level 8.0 mg/dL (8.5-10.1) Test 10/15/19 07:24 10/15/19 11:40 10/15/19 12:45 10/15/19 14:43 Glucose (Fingerstick) 135 mg/dL (70-99) 135 mg/dL (70-99) Iron Level 23 ug/dL (50-170) Total Iron Binding Capacity 215 ug/dL (250-450) Iron Saturation 11 % (15-34) Lactic Acid Level 1.6 mmol/L (0.4-2.0) Test 10/15/19 16:55 10/15/19 20:31 10/16/19 07:54 10/16/19 11:57 Glucose (Fingerstick) 128 mg/dL (70-99) 168 mg/dL (70-99) 134 mg/dL (70-99) 157 mg/dL (70-99) Laboratory Tests Test 10/15/19 12:45 10/15/19 14:43 10/15/19 16:55 10/15/19 20:31 Iron Level 23 ug/dL (50-170) Total Iron Binding Capacity 215 ug/dL (250-450) Iron Saturation 11 % (15-34) Lactic Acid Level 1.6 mmol/L (0.4-2.0) Glucose (Fingerstick) 128 mg/dL (70-99) 168 mg/dL (70-99) Test 10/16/19 07:54 10/16/19 11:57 Glucose (Fingerstick) 134 mg/dL (70-99) 157 mg/dL (70-99) Microbiology 10/14/19 Blood Culture - Preliminary, Resulted NO GROWTH AFTER 1 DAY 10/14/19 Urine Culture - Final, Complete Medications Current Medications Sodium Chloride 500 ml @ 500 mls/hr 1X ONCE IV Last administered on 10/14/19at 12:49; Start 10/14/19 at 12:30; Stop 10/14/19 at 13:29; Status DC Gabapentin (Neurontin) 100 mg 1X STAT PO Last administered on 10/14/19at 12:49; Start 10/14/19 at 12:29; Stop 10/14/19 at 12:31; Status DC Acetaminophen/ Hydrocodone Bitart (Lortab 5/325) 1 tab 1X ONCE PO Last administered on 10/14/19at 12:49; Start 10/14/19 at 12:30; Stop 10/14/19 at 12:33; Status DC Ondansetron HCl (Zofran Odt) 4 mg 1X ONCE PO Last administered on 10/14/19at 12:49; Start 10/14/19 at 12:30; Stop 10/14/19 at 12:33; Status DC Sodium Chloride 1,000 ml @ 75 mls/hr [id number] IV Last administered on 10/15/19at 03:19; Start 10/14/19 at 14:00; Stop 10/15/19 at 13:59; Status DC Ceftriaxone Sodium (Rocephin) 1 gm 1X ONCE IVP Last administered on 10/14/19at 14:23; Start 10/14/19 at 14:00; Stop 10/14/19 at 14:01; Status DC Ceftriaxone Sodium (Rocephin) 1 gm Q24H IVP Last administered on 10/15/19at 14:00; Start 10/15/19 at 14:00 Sodium Chloride (Normal Saline Flush) 3 ml QSHIFT PRN IV AFTER MEDS AND BLOOD DRAWS; Start 10/14/19 at 20:15 Ondansetron HCl (Zofran) 4 mg PRN Q4HRS PRN IV NAUSEA/VOMITING; Start 10/14/19 at 20:15 Acetaminophen (Tylenol) 650 mg PRN Q4HRS PRN PO TEMP OVER 100.4F; Start 10/14/19 at 20:15; Stop 10/14/19 at 20:26; Status DC Al Hydroxide/Mg Hydroxide (Mylanta Plus Xs) 30 ml PRN DAILY PRN PO HEARTBURN / GAS; Start 10/14/19 at 20:15 Sodium Monofluorophosphate (Fleet Adult) 133 ml PRN DAILY PRN [place] CONSTIPATION; Start 10/14/19 at 20:15 Docusate Sodium (Colace) 100 mg PRN BID PRN PO HARD STOOLS; Start 10/14/19 at 20:15 Albuterol Sulfate (Ventolin Neb Soln) 2.5 mg PRN Q4HRS PRN NEB SHORTNESS OF BREATH; Start 10/14/19 at 20:15 Guaifenesin (Robitussin) 200 mg PRN Q4HRS PRN PO COUGH; Start 10/14/19 at 20:15 Enoxaparin Sodium (Lovenox 30mg Syringe) 30 mg Q24H SQ Last administered on 10/15/19at 08:25; Start 10/15/19 at 09:00; Stop 10/15/19 at 13:49; Status DC Acetaminophen (Tylenol) 325 mg PRN QID PRN PO PAIN MILD; Start 10/14/19 at 20:15 Atorvastatin Calcium (Lipitor) 40 mg QHS PO Last administered on 10/15/19at 21:36; Start 10/14/19 at 21:00 Diltiazem HCl (Cardizem 24hr Cd) 120 mg DAILY PO Last administered on 10/16/19at 09:39; Start 10/15/19 at 09:00 Ergocalciferol (Vitamin D2) 50,000 unit WEEKLY PO ; Start 10/22/19 at 09:00 Pantoprazole Sodium (Protonix) 40 mg DAILY07 PO Last administered on 10/16/19at 06:35; Start 10/15/19 at 07:00 Nystatin (Nystop) 1 melissa QID TP Last administered on 10/16/19at 09:44; Start 10/14/19 at 21:00 Acetaminophen (Tylenol) 650 mg PRN QID PRN PO PAIN MODERATE Last administered on 10/15/19at 07:09; Start 10/14/19 at 20:30 Lactobacillus Rhamnosus (Culturelle) 1 cap BID PO Last administered on 10/16/19at 09:37; Start 10/15/19 at 21:00 Enoxaparin Sodium (Lovenox 40mg Syringe) 40 mg Q12H SQ Last administered on 10/16/19at 09:37; Start 10/15/19 at 21:00 Active Scripts Active Tylenol (Acetaminophen) 325 Mg Tablet 1-2 Tab PO QID PRN Lantus (Insulin Glargine,Hum.rec.anlog) 100 Unit/1 Ml Vial 20 Unit SQ BID 30 Days Cozaar (Losartan Potassium) 25 Mg Tablet 25 Mg PO DAILY Diltiazem 24HR Cd (Diltiazem Hcl) 120 Mg Cap.er.24h 120 Mg PO DAILY Reported Furosemide 40 Mg Tablet 1 Tab PO DAILY Vitamin D2 (Ergocalciferol (Vitamin D2)) 50,000 Unit Capsule 1 Cap PO WEEKLY Pantoprazole Sodium (Pantoprazole Sodium) 40 Mg Tablet.dr 1 Tab PO DAILY Atorvastatin Calcium 40 Mg Tablet 1 Tab PO QHS Allopurinol 300 Mg Tablet 1 Tab PO DAILY Vitals/I & O Vital Sign - Last 24 Hours 10/15/19 10/15/19 10/15/19 10/15/19 15:00 19:00 20:25 23:00 Temp 98.6 98.3 98.4 98.6 98.3 98.4 Pulse 82 95 90 Resp 18 18 18 B/P (MAP) 108/30 (56) 112/36 (61) 129/95 (106) Pulse Ox 97 96 95 O2 Delivery Room Air Room Air Room Air Room Air 10/16/19 10/16/19 10/16/19 10/16/19 03:00 07:00 09:39 11:00 Temp 97.7 98.2 98.4 97.7 98.2 98.4 Pulse 94 91 91 89 Resp 18 16 18 B/P (MAP) 123/53 (76) 106/39 (61) 106/39 110/40 (63) Pulse Ox 98 99 94 O2 Delivery Room Air Room Air Room Air Intake and Output 10/15/19 10/15/19 10/16/19 15:00 23:00 07:00 Intake Total 540 ml 480 ml Balance 540 ml 480 ml Justicifation of Admission Dx: Justifications for Admission: Justification of Admission Dx: Yes Acute Renal Failure: RF Can't Be Managed Outpt Chronic Renal Failure: Renail Failure MARTY JACQUES MD Oct 16, 2019 12:08
[2019-10-16] MEDS: cefTRIAXone IV Push 1 GM VIAL. IVP SCH (13:27)
--- NOTE | 2019-10-16 13:39 | PDOC ---
G I PROGRESS NOTE Reason for Follow-up Anemia Subjective No new complaints Physical Exam Lungs clear CV S1 S2 ABD +BS, soft, nontender Review of Relevant I have reviewed the following items edis (where applicable) has been applied. Labs Laboratory Tests Test 10/14/19 13:40 10/14/19 16:04 10/14/19 17:55 10/14/19 21:27 Glucose (Fingerstick) 101 mg/dL (70-99) 135 mg/dL (70-99) 161 mg/dL (70-99) Lactic Acid Level 1.9 mmol/L (0.4-2.0) Test 10/15/19 04:19 10/15/19 07:24 10/15/19 11:40 10/15/19 12:45 Sodium Level 140 mmol/L (136-145) Potassium Level 5.1 mmol/L (3.5-5.1) Chloride Level 107 mmol/L (98-107) Carbon Dioxide Level 25 mmol/L (21-32) Anion Gap 8 (6-14) Blood Urea Nitrogen 47 mg/dL (-20) Creatinine 1.8 mg/dL (0.6-1.0) Estimated GFR (Cockcroft-Gault) 27.2 Glucose Level 140 mg/dL (70-99) Calcium Level 8.0 mg/dL (8.5-10.1) Glucose (Fingerstick) 135 mg/dL (70-99) 135 mg/dL (70-99) Iron Level 23 ug/dL (50-170) Total Iron Binding Capacity 215 ug/dL (250-450) Iron Saturation 11 % (15-34) Test 10/15/19 14:43 10/15/19 16:55 10/15/19 20:31 10/16/19 07:54 Lactic Acid Level 1.6 mmol/L (0.4-2.0) Glucose (Fingerstick) 128 mg/dL (70-99) 168 mg/dL (70-99) 134 mg/dL (70-99) Test 10/16/19 11:57 Glucose (Fingerstick) 157 mg/dL (70-99) Laboratory Tests Test 10/15/19 14:43 10/15/19 16:55 10/15/19 20:31 10/16/19 07:54 Lactic Acid Level 1.6 mmol/L (0.4-2.0) Glucose (Fingerstick) 128 mg/dL (70-99) 168 mg/dL (70-99) 134 mg/dL (70-99) Test 10/16/19 11:57 Glucose (Fingerstick) 157 mg/dL (70-99) Microbiology 10/14/19 Blood Culture - Preliminary, Resulted NO GROWTH AFTER 1 DAY 10/14/19 Urine Culture - Final, Complete Medications Current Medications Sodium Chloride 500 ml @ 500 mls/hr 1X ONCE IV Last administered on 10/14/19at 12:49; Start 10/14/19 at 12:30; Stop 10/14/19 at 13:29; Status DC Gabapentin (Neurontin) 100 mg 1X STAT PO Last administered on 10/14/19at 12:49; Start 10/14/19 at 12:29; Stop 10/14/19 at 12:31; Status DC Acetaminophen/ Hydrocodone Bitart (Lortab 5/325) 1 tab 1X ONCE PO Last administered on 10/14/19at 12:49; Start 10/14/19 at 12:30; Stop 10/14/19 at 12:33; Status DC Ondansetron HCl (Zofran Odt) 4 mg 1X ONCE PO Last administered on 10/14/19at 12:49; Start 10/14/19 at 12:30; Stop 10/14/19 at 12:33; Status DC Sodium Chloride 1,000 ml @ 75 mls/hr [id number] IV Last administered on 10/15/19at 03:19; Start 10/14/19 at 14:00; Stop 10/15/19 at 13:59; Status DC Ceftriaxone Sodium (Rocephin) 1 gm 1X ONCE IVP Last administered on 10/14/19at 14:23; Start 10/14/19 at 14:00; Stop 10/14/19 at 14:01; Status DC Ceftriaxone Sodium (Rocephin) 1 gm Q24H IVP Last administered on 10/16/19at 13:27; Start 10/15/19 at 14:00 Sodium Chloride (Normal Saline Flush) 3 ml QSHIFT PRN IV AFTER MEDS AND BLOOD DRAWS; Start 10/14/19 at 20:15 Ondansetron HCl (Zofran) 4 mg PRN Q4HRS PRN IV NAUSEA/VOMITING; Start 10/14/19 at 20:15 Acetaminophen (Tylenol) 650 mg PRN Q4HRS PRN PO TEMP OVER 100.4F; Start 10/14/19 at 20:15; Stop 10/14/19 at 20:26; Status DC Al Hydroxide/Mg Hydroxide (Mylanta Plus Xs) 30 ml PRN DAILY PRN PO HEARTBURN / GAS; Start 10/14/19 at 20:15 Sodium Monofluorophosphate (Fleet Adult) 133 ml PRN DAILY PRN [place] CONSTIPATION; Start 10/14/19 at 20:15 Docusate Sodium (Colace) 100 mg PRN BID PRN PO HARD STOOLS; Start 10/14/19 at 20:15 Albuterol Sulfate (Ventolin Neb Soln) 2.5 mg PRN Q4HRS PRN NEB SHORTNESS OF BREATH; Start 10/14/19 at 20:15 Guaifenesin (Robitussin) 200 mg PRN Q4HRS PRN PO COUGH; Start 10/14/19 at 20:15 Enoxaparin Sodium (Lovenox 30mg Syringe) 30 mg Q24H SQ Last administered on 10/15/19at 08:25; Start 10/15/19 at 09:00; Stop 10/15/19 at 13:49; Status DC Acetaminophen (Tylenol) 325 mg PRN QID PRN PO PAIN MILD; Start 10/14/19 at 20:15 Atorvastatin Calcium (Lipitor) 40 mg QHS PO Last administered on 10/15/19at 21:36; Start 10/14/19 at 21:00 Diltiazem HCl (Cardizem 24hr Cd) 120 mg DAILY PO Last administered on 10/16/19at 09:39; Start 10/15/19 at 09:00 Ergocalciferol (Vitamin D2) 50,000 unit WEEKLY PO ; Start 10/22/19 at 09:00 Pantoprazole Sodium (Protonix) 40 mg DAILY07 PO Last administered on 10/16/19at 06:35; Start 10/15/19 at 07:00 Nystatin (Nystop) 1 melissa QID TP Last administered on 10/16/19at 13:00; Start 10/14/19 at 21:00 Acetaminophen (Tylenol) 650 mg PRN QID PRN PO PAIN MODERATE Last administered on 10/15/19at 07:09; Start 10/14/19 at 20:30 Lactobacillus Rhamnosus (Culturelle) 1 cap BID PO Last administered on 10/16/19at 09:37; Start 10/15/19 at 21:00 Enoxaparin Sodium (Lovenox 40mg Syringe) 40 mg Q12H SQ Last administered on 10/16/19at 09:37; Start 10/15/19 at 21:00 Active Scripts Active Tylenol (Acetaminophen) 325 Mg Tablet 1-2 Tab PO QID PRN Lantus (Insulin Glargine,Hum.rec.anlog) 100 Unit/1 Ml Vial 20 Unit SQ BID 30 Days Cozaar (Losartan Potassium) 25 Mg Tablet 25 Mg PO DAILY Diltiazem 24HR Cd (Diltiazem Hcl) 120 Mg Cap.er.24h 120 Mg PO DAILY Reported Furosemide 40 Mg Tablet 1 Tab PO DAILY Vitamin D2 (Ergocalciferol (Vitamin D2)) 50,000 Unit Capsule 1 Cap PO WEEKLY Pantoprazole Sodium (Pantoprazole Sodium) 40 Mg Tablet.dr 1 Tab PO DAILY Atorvastatin Calcium 40 Mg Tablet 1 Tab PO QHS Allopurinol 300 Mg Tablet 1 Tab PO DAILY Vitals/I & O Vital Sign - Last 24 Hours 10/15/19 10/15/19 10/15/19 10/15/19 15:00 19:00 20:25 23:00 Temp 98.6 98.3 98.4 98.6 98.3 98.4 Pulse 82 95 90 Resp 18 18 18 B/P (MAP) 108/30 (56) 112/36 (61) 129/95 (106) Pulse Ox 97 96 95 O2 Delivery Room Air Room Air Room Air Room Air 10/16/19 10/16/19 10/16/19 10/16/19 03:00 07:00 08:15 09:39 Temp 97.7 98.2 97.7 98.2 Pulse 94 91 91 Resp 18 16 B/P (MAP) 123/53 (76) 106/39 (61) 106/39 Pulse Ox 98 99 O2 Delivery Room Air Room Air Room Air 10/16/19 11:00 Temp 98.4 98.4 Pulse 89 Resp 18 B/P (MAP) 110/40 (63) Pulse Ox 94 O2 Delivery Room Air Intake and Output 10/15/19 10/15/19 10/16/19 15:00 23:00 07:00 Intake Total 540 ml 480 ml Balance 540 ml 480 ml Problem List Problems Medical Problems: (1) Acute renal failure Status: Acute Assessment 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 CMP Justicifation of Admission Dx: Justifications for Admission: Justification of Admission Dx: Yes Acute Renal Failure: RF Can't Be Managed Outpt Chronic Renal Failure: Renail Failure MANJU ESQUEDA MD Oct 16, 2019 13:39
[2019-10-16 15:00] VITALS: BP 109/40
[2019-10-16 19:00] VITALS: BP 112/38
[2019-10-16] MEDS: ATORVASTATIN CALCIUM 40 MG TABLET. PO SCH (21:00)
[2019-10-16] MEDS: ACETAMINOPHEN 325 MG TABLET. PO PRN (21:01)
[2019-10-16 23:00] VITALS: BP 105/33
[2019-10-17 03:00] VITALS: BP 116/37
[2019-10-17] MEDS: PANTOPRAZOLE 40 MG TABLET.DR. PO SCH (05:46)
[2019-10-17 07:00] VITALS: BP 126/49
[2019-10-17] MEDS: LACTOBACILLUS RHAMNOSUS GG 1 CAPSULE. PO SCH ×3 (09:34→22:12)
[2019-10-17] MEDS: ENOXAPARIN 40 MG/0.4 ML SYRINGE. SQ SCH ×3 (09:34→22:13)
[2019-10-17] MEDS: NYSTATIN TOPICAL POWDER 15GM BOTTLE. TP SCH ×5 (09:35→22:13)
[2019-10-17 11:00] VITALS: BP 129/48
--- NOTE | 2019-10-17 11:08 | PDOC ---
PROGRESS NOTES Chief Complaint Chief Complaint VTE Prophylaxis Ordered VTE Prophylaxis Devices: Yes VTE Pharmacological Prophylaxi: Yes Assessment/Plan Assessment/Plan Impression: UTI (urinary tract infection) MORBID OBESITY Acute renal failure DEHYDRATION normocytic anemia, CHRONIC BLOOD LOSS ANEMIA plan ADMITTED Consult nephrology iv antibiotics, EMPERIC IV FLUID SUPPORT AM BMP nephrology consult HOLD ALLOPURINOL AND LOSARTEN DUE TO BOBBY follow renal fx closely D/W RN History of Present Illness History of Present Illness SEEN IN ER WITH HYPOGLYCEMIA patient has chronic left hip pain was admitted, had rehab now pain is increasing again has bilateral foot burning pain denies medications for this. no fever, no cough. no chest pain. NOTES little dizzy when she stood up so gave tube oral glucose came up from 59 to 85. ate breakfast at six am. used insulin at 5 am. insulin used sliding scale at meals normally. 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 [] HENT: Normocephalic, atraumatic, bilateral external ears normal, oropharynx moist, no oral exudates, nose normal. [] Eyes: PERRLA, EOMI, conjunctiva normal, no discharge. [] Neck: Normal range of motion, no tenderness, supple, no stridor. [] Cardiovascular:Heart rate regular rhythm, no murmur [] Lungs & Thorax: Bilateral breath sounds clear to auscultation [] Abdomen: Bowel sounds normal, soft, no tenderness, no masses, no pulsatile masses. [] Skin: Warm, dry, no erythema, no rash. [] Back: No tenderness, no CVA tenderness. [] Extremities: No tenderness, no cyanosis, no clubbing, ROM intact, no edema. [] Neurologic: Alert and oriented X 3, normal motor function, normal sensory function, no focal deficits noted. [] Psychologic: Affect normal, judgement normal, mood normal. [] General: Alert, Oriented X3, Cooperative, No acute distress HEENT: Atraumatic, PERRLA, EOMI, Mucous membr. moist/pink Heart: RRR, no thrills Breasts: Not examined Abdomen: Soft Rectal Exam: not examined Extremities: No cyanosis Neuro: Normal speech, Strength at 5/5 X4 ext, Sensation intact, Cranial nerves 3-12 NL Psych/Mental Status: Mental status NL, Mood NL General: Alert, Oriented X3, Cooperative, No acute distress Heart: Regular rate, Normal S1, Normal S2 Lungs: Clear Abdomen: Normal bowel sounds, Soft, No tenderness Extremities: No clubbing, No cyanosis Labs LABS Laboratory Tests Test 10/16/19 11:57 10/16/19 17:20 10/16/19 20:40 10/16/19 23:05 Glucose (Fingerstick) 157 mg/dL (70-99) 161 mg/dL (70-99) 176 mg/dL (70-99) 134 mg/dL (70-99) Test 10/17/19 07:38 Glucose (Fingerstick) 160 mg/dL (70-99) Assessment and Plan Assessmemt and Plan Problems Medical Problems: (1) Acute renal failure Status: Acute Comment Review of Relevant I have reviewed the following items edis (where applicable) has been applied. Labs Laboratory Tests Test 10/15/19 11:40 10/15/19 12:45 10/15/19 14:43 10/15/19 16:55 Glucose (Fingerstick) 135 mg/dL (70-99) 128 mg/dL (70-99) Iron Level 23 ug/dL (50-170) Total Iron Binding Capacity 215 ug/dL (250-450) Iron Saturation 11 % (15-34) Lactic Acid Level 1.6 mmol/L (0.4-2.0) Test 10/15/19 20:31 10/16/19 07:54 10/16/19 11:57 10/16/19 17:20 Glucose (Fingerstick) 168 mg/dL (70-99) 134 mg/dL (70-99) 157 mg/dL (70-99) 161 mg/dL (70-99) Test 10/16/19 20:40 10/16/19 23:05 10/17/19 07:38 Glucose (Fingerstick) 176 mg/dL (70-99) 134 mg/dL (70-99) 160 mg/dL (70-99) Laboratory Tests Test 10/16/19 11:57 10/16/19 17:20 10/16/19 20:40 10/16/19 23:05 Glucose (Fingerstick) 157 mg/dL (70-99) 161 mg/dL (70-99) 176 mg/dL (70-99) 134 mg/dL (70-99) Test 10/17/19 07:38 Glucose (Fingerstick) 160 mg/dL (70-99) Microbiology 10/15/19 Blood Culture - Preliminary, Resulted NO GROWTH AFTER 1 DAY 10/14/19 Urine Culture - Final, Complete Medications Current Medications Sodium Chloride 500 ml @ 500 mls/hr 1X ONCE IV Last administered on 10/14/19at 12:49; Start 10/14/19 at 12:30; Stop 10/14/19 at 13:29; Status DC Gabapentin (Neurontin) 100 mg 1X STAT PO Last administered on 10/14/19at 12:49; Start 10/14/19 at 12:29; Stop 10/14/19 at 12:31; Status DC Acetaminophen/ Hydrocodone Bitart (Lortab 5/325) 1 tab 1X ONCE PO Last administered on 10/14/19at 12:49; Start 10/14/19 at 12:30; Stop 10/14/19 at 12:33; Status DC Ondansetron HCl (Zofran Odt) 4 mg 1X ONCE PO Last administered on 10/14/19at 12:49; Start 10/14/19 at 12:30; Stop 10/14/19 at 12:33; Status DC Sodium Chloride 1,000 ml @ 75 mls/hr [id number] IV Last administered on 10/15/19at 03:19; Start 10/14/19 at 14:00; Stop 10/15/19 at 13:59; Status DC Ceftriaxone Sodium (Rocephin) 1 gm 1X ONCE IVP Last administered on 10/14/19at 14:23; Start 10/14/19 at 14:00; Stop 10/14/19 at 14:01; Status DC Ceftriaxone Sodium (Rocephin) 1 gm Q24H IVP Last administered on 10/16/19at 13:27; Start 10/15/19 at 14:00 Sodium Chloride (Normal Saline Flush) 3 ml QSHIFT PRN IV AFTER MEDS AND BLOOD DRAWS; Start 10/14/19 at 20:15 Ondansetron HCl (Zofran) 4 mg PRN Q4HRS PRN IV NAUSEA/VOMITING; Start 10/14/19 at 20:15 Acetaminophen (Tylenol) 650 mg PRN Q4HRS PRN PO TEMP OVER 100.4F; Start 10/14/19 at 20:15; Stop 10/14/19 at 20:26; Status DC Al Hydroxide/Mg Hydroxide (Mylanta Plus Xs) 30 ml PRN DAILY PRN PO HEARTBURN / GAS; Start 10/14/19 at 20:15 Sodium Monofluorophosphate (Fleet Adult) 133 ml PRN DAILY PRN CO CONSTIPATION; Start 10/14/19 at 20:15 Docusate Sodium (Colace) 100 mg PRN BID PRN PO HARD STOOLS; Start 10/14/19 at 20:15 Albuterol Sulfate (Ventolin Neb Soln) 2.5 mg PRN Q4HRS PRN NEB SHORTNESS OF BREATH; Start 10/14/19 at 20:15 Guaifenesin (Robitussin) 200 mg PRN Q4HRS PRN PO COUGH; Start 10/14/19 at 20:15 Enoxaparin Sodium (Lovenox 30mg Syringe) 30 mg Q24H SQ Last administered on 10/15/19at 08:25; Start 10/15/19 at 09:00; Stop 10/15/19 at 13:49; Status DC Acetaminophen (Tylenol) 325 mg PRN QID PRN PO PAIN MILD; Start 10/14/19 at 20:15 Atorvastatin Calcium (Lipitor) 40 mg QHS PO Last administered on 10/16/19at 21: 00; Start 10/14/19 at 21:00 Diltiazem HCl (Cardizem 24hr Cd) 120 mg DAILY PO Last administered on 10/17/19at 09:34; Start 10/15/19 at 09:00 Ergocalciferol (Vitamin D2) 50,000 unit WEEKLY PO ; Start 10/22/19 at 09:00 Pantoprazole Sodium (Protonix) 40 mg DAILY07 PO Last administered on 10/17/19at 05:46; Start 10/15/19 at 07:00 Nystatin (Nystop) 1 melissa QID TP Last administered on 10/17/19at 09:35; Start 10/14/19 at 21:00 Acetaminophen (Tylenol) 650 mg PRN QID PRN PO PAIN MODERATE Last administered on 10/16/19at 21:01; Start 10/14/19 at 20:30 Lactobacillus Rhamnosus (Culturelle) 1 cap BID PO Last administered on 10/17/19at 09:34; Start 10/15/19 at 21:00 Enoxaparin Sodium (Lovenox 40mg Syringe) 40 mg Q12H SQ Last administered on 10/17/19at 09:34; Start 10/15/19 at 21:00 Active Scripts Active Tylenol (Acetaminophen) 325 Mg Tablet 1-2 Tab PO QID PRN Lantus (Insulin Glargine,Hum.rec.anlog) 100 Unit/1 Ml Vial 20 Unit SQ BID 30 Days Cozaar (Losartan Potassium) 25 Mg Tablet 25 Mg PO DAILY Diltiazem 24HR Cd (Diltiazem Hcl) 120 Mg Cap.er.24h 120 Mg PO DAILY Reported Furosemide 40 Mg Tablet 1 Tab PO DAILY Vitamin D2 (Ergocalciferol (Vitamin D2)) 50,000 Unit Capsule 1 Cap PO WEEKLY Pantoprazole Sodium (Pantoprazole Sodium) 40 Mg Tablet.dr 1 Tab PO DAILY Atorvastatin Calcium 40 Mg Tablet 1 Tab PO QHS Allopurinol 300 Mg Tablet 1 Tab PO DAILY Vitals/I & O Vital Sign - Last 24 Hours 10/16/19 10/16/19 10/16/19 10/16/19 15:00 19:00 20:00 23:00 Temp 98.3 98.5 98.2 98.3 98.5 98.2 Pulse 81 82 75 Resp 16 20 20 B/P (MAP) 109/40 (63) 112/38 (62) 105/33 (57) Pulse Ox 96 98 96 O2 Delivery Room Air Room Air Room Air Room Air 10/17/19 10/17/19 10/17/19 10/17/19 03:00 07:00 08:00 09:34 Temp 97.8 98.0 97.8 98.0 Pulse 70 72 72 Resp 20 16 B/P (MAP) 116/37 (63) 126/49 (74) 126/49 Pulse Ox 99 94 O2 Delivery Room Air Room Air Room Air Intake and Output 10/16/19 10/16/19 10/17/19 15:00 23:00 07:00 Intake Total 100 ml 600 ml Output Total 650 ml Balance -550 ml 600 ml Justicifation of Admission Dx: Justifications for Admission: Justification of Admission Dx: Yes Acute Renal Failure: RF Can't Be Managed Outpt Chronic Renal Failure: Renail Failure MARTY JACQUES MD Oct 17, 2019 11:08
[2019-10-17] MEDS: cefTRIAXone IV Push 1 GM VIAL. IVP SCH (14:09)
[2019-10-17] MEDS: DOCUSATE SODIUM 100 MG CAPSULE. PO PRN (14:11)
[2019-10-17] MEDS: ACETAMINOPHEN 325 MG TABLET. PO PRN (14:11)
[2019-10-17 15:00] VITALS: BP 132/50
--- NOTE | 2019-10-17 17:08 | NUR ---
Non administered 1700 nystatin; not needed at this time.
[2019-10-17 17:49] LABS: BASO % 1 % (0-3); EOS # 0.5 x10^3/uL (0.0-0.7); EOS % 11 % (0-3); HEMATOCRIT 26.6 % (36.0-47.0); HEMOGLOBIN 8.4 g/dL (12.0-15.5); LYMPH # 0.8 x10^3/uL (1.0-4.8); LYMPH % 17 % (24-48); MEAN CORPUSCULAR HEMOGLOBIN 27 pg (25-35); MEAN CORPUSCULAR HGB CONC 32 g/dL (31-37); MEAN CORPUSCULAR VOLUME 84 fL (79-100); MONO # 0.3 x10^3/uL (0.0-1.1); MONO % 8 % (0-9); NEUT # 2.9 x10^3/uL (1.8-7.7); NEUT % 64 % (31-73); PLATELET COUNT 376 x10^3/uL (140-400); RED BLOOD COUNT 3.18 x10^6/uL (3.50-5.40); RED CELL DISTRIBUTION WIDTH 22.3 % (11.5-14.5); WHITE BLOOD COUNT 4.5 x10^3/uL (4.0-11.0)
[2019-10-17 18:09] LABS: ALBUMIN 2.8 g/dL (3.4-5.0); ALBUMIN/GLOBULIN RATIO 0.7 (1.0-1.7); CALCIUM 8.4 mg/dL (8.5-10.1); CREATININE 1.8 mg/dL (0.6-1.0); GFR 27.2; POTASSIUM 4.2 mmol/L (3.5-5.1); TOTAL BILIRUBIN 0.2 mg/dL (0.2-1.0)
[2019-10-17 19:00] VITALS: BP 125/46
[2019-10-17] MEDS: ATORVASTATIN CALCIUM 40 MG TABLET. PO SCH ×2 (22:01→22:12)
[2019-10-17 23:00] VITALS: BP 120/40
[2019-10-18 03:00] VITALS: BP 123/47
[2019-10-18] MEDS: ACETAMINOPHEN 325 MG TABLET. PO PRN ×2 (03:25→14:27)
[2019-10-18 06:02] LABS: ALBUMIN 2.3 g/dL (3.4-5.0); ALBUMIN/GLOBULIN RATIO 0.8 (1.0-1.7); CALCIUM 7.9 mg/dL (8.5-10.1); CREATININE 1.7 mg/dL (0.6-1.0); GFR 29.1; POTASSIUM 4.6 mmol/L (3.5-5.1); TOTAL BILIRUBIN 0.1 mg/dL (0.2-1.0); TOTAL PROTEIN 5.2 g/dL (6.4-8.2)
[2019-10-18] MEDS: PANTOPRAZOLE 40 MG TABLET.DR. PO SCH (06:17)
[2019-10-18 07:00] VITALS: BP 117/38
[2019-10-18] MEDS: ENOXAPARIN 40 MG/0.4 ML SYRINGE. SQ SCH (08:18)
[2019-10-18] MEDS: LACTOBACILLUS RHAMNOSUS GG 1 CAPSULE. PO SCH ×2 (08:18→20:48)
[2019-10-18] MEDS: NYSTATIN TOPICAL POWDER 15GM BOTTLE. TP SCH ×4 (08:19→20:48)
--- NOTE | 2019-10-18 08:54 | NUR ---
SW following. Reviewed chart and spoke with RN. Pt from home. PT/OT evaluation pending. Pt's creatinine improving. SW to continue following.
--- NOTE | 2019-10-18 09:20 | PDOC ---
PROGRESS NOTES Chief Complaint Chief Complaint VTE Prophylaxis Ordered VTE Prophylaxis Devices: Yes VTE Pharmacological Prophylaxi: Yes Assessment/Plan Assessment/Plan Impression: UTI (urinary tract infection) MORBID OBESITY Acute renal failure DEHYDRATION normocytic anemia, CHRONIC BLOOD LOSS ANEMIA plan ADMITTED Consult nephrology iv antibiotics, EMPERIC IV FLUID SUPPORT AM BMP nephrology consult HOLD ALLOPURINOL AND LOSARTEN DUE TO BOBBY follow renal fx closely 10/17 RENAL FUNCTION SLOWLY improving , c/o right hip pain, PT/OT TO SEE RESTART COUMADIN D/W RN * Skin Integrity Clinical Presentation * Stable Evaluation Complexity Level * Moderate Complexity Pt/caregiver agrees with plan of care/goals * Yes Patient condition at conclusion of therapy * Pt in chair * Call light in reach * Phone in reach * PtIn no apparent distress * Pt denies further needs Communicated Patient Care With (Name, Title) * Josette RN, Sury OT Goal 1 - Bed Mobility Assistance Required * Independent Goal 2 - Transfers Assistance Required * Independent Goal 2 - Transfer Type * Sit to Stand Goal 3 - Ambulation Assistance Required * Independent Goal 3 - Ambulation Distance * 100' Goal 3 - Ambulation Device * Roller Walker Goal 4 - Stairs Assistance Required * Supervision Goal 4 - Number of Stairs * 2-4 Goal 4 - Device on Stairs * Roller Walker * Rail on Right * Rail on Left Goal 5 * Indep with HEP. Treatment Plan * Therapeutic Exercise * Bed Mobility Training * Transfer training * Gait Training * Dynamic Balance Training Frequency of Treatment Expected * 7 visits/week Duration of Treatment Expected * 2 weeks Discharge Recommendations * Care Home Unit Discharge Recommendation - DME * None Discharge Recommendation Comments * SNF at this time. History of Present Illness History of Present Illness SEEN IN ER WITH HYPOGLYCEMIA patient has chronic left hip pain was admitted, had rehab now pain is increasing again has bilateral foot burning pain denies medications for this. no fever, no cough. no chest pain. NOTES little dizzy when she stood up so gave tube oral glucose came up from 59 to 85. ate breakfast at six am. used insulin at 5 am. insulin used sliding scale at meals normally. 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 [] HENT: Normocephalic, atraumatic, bilateral external ears normal, oropharynx moist, no oral exudates, nose normal. [] Eyes: PERRLA, EOMI, conjunctiva normal, no discharge. [] Neck: Normal range of motion, no tenderness, supple, no stridor. [] Cardiovascular:Heart rate regular rhythm, no murmur [] Lungs & Thorax: Bilateral breath sounds clear to auscultation [] Abdomen: Bowel sounds normal, soft, no tenderness, no masses, no pulsatile masses. [] Skin: Warm, dry, no erythema, no rash. [] Back: No tenderness, no CVA tenderness. [] Extremities: No tenderness, no cyanosis, no clubbing, ROM intact, no edema. [] Neurologic: Alert and oriented X 3, normal motor function, normal sensory function, no focal deficits noted. [] Psychologic: Affect normal, judgement normal, mood normal. [] General: Alert, Oriented X3, Cooperative, No acute distress HEENT: Atraumatic, PERRLA, EOMI, Mucous membr. moist/pink Heart: RRR, no thrills Breasts: Not examined Abdomen: Soft Rectal Exam: not examined Extremities: No cyanosis Neuro: Normal speech, Strength at 5/5 X4 ext, Sensation intact, Cranial nerves 3-12 NL Psych/Mental Status: Mental status NL, Mood NL General: Alert, Oriented X3, Cooperative, No acute distress Heart: Regular rate, Normal S1, Normal S2 Lungs: Clear Abdomen: Normal bowel sounds, Soft, No tenderness Extremities: No clubbing, No cyanosis Labs LABS URINE CULTURE Final Final No Growth on 10/15/19 at 0947 Testing Performed by: [address] [address] For Inquires, the Physician may contact the Microbiology department at [phone] Unless otherwise specified, Testing Performed by: [address] [address] For Inquires, the Physician may contact the Microbiology department at [phone] Laboratory Tests Test 10/17/19 16:44 10/17/19 17:25 10/17/19 21:59 10/18/19 04:34 Glucose (Fingerstick) 181 mg/dL (70-99) 146 mg/dL (70-99) White Blood Count 4.5 x10^3/uL (4.0-11.0) Red Blood Count 3.18 x10^6/uL (3.50-5.40) Hemoglobin 8.4 g/dL (12.0-15.5) Hematocrit 26.6 % (36.0-47.0) Mean Corpuscular Volume 84 fL (79-100) Mean Corpuscular Hemoglobin 27 pg (25-35) Mean Corpuscular Hemoglobin Concent 32 g/dL (31-37) Red Cell Distribution Width 22.3 % (11.5-14.5) Platelet Count 376 x10^3/uL (140-400) Neutrophils (%) (Auto) 64 % (31-73) Lymphocytes (%) (Auto) 17 % (24-48) Monocytes (%) (Auto) 8 % (0-9) Eosinophils (%) (Auto) 11 % (0-3) Basophils (%) (Auto) 1 % (0-3) Neutrophils # (Auto) 2.9 x10^3/uL (1.8-7.7) Lymphocytes # (Auto) 0.8 x10^3/uL (1.0-4.8) Monocytes # (Auto) 0.3 x10^3/uL (0.0-1.1) Eosinophils # (Auto) 0.5 x10^3/uL (0.0-0.7) Basophils # (Auto) 0.0 x10^3/uL (0.0-0.2) Sodium Level 138 mmol/L (136-145) 141 mmol/L (136-145) Potassium Level 4.2 mmol/L (3.5-5.1) 4.6 mmol/L (3.5-5.1) Chloride Level 104 mmol/L (98-107) 108 mmol/L (98-107) Carbon Dioxide Level 24 mmol/L (21-32) 25 mmol/L (21-32) Anion Gap 10 (6-14) 8 (6-14) Blood Urea Nitrogen 35 mg/dL (7-20) 32 mg/dL (7-20) Creatinine 1.8 mg/dL (0.6-1.0) 1.7 mg/dL (0.6-1.0) Estimated GFR (Cockcroft-Gault) 27.2 29.1 BUN/Creatinine Ratio 19 (6-20) 19 (6-20) Glucose Level 176 mg/dL (70-99) 161 mg/dL (70-99) Calcium Level 8.4 mg/dL (8.5-10.1) 7.9 mg/dL (8.5-10.1) Total Bilirubin 0.2 mg/dL (0.2-1.0) 0.1 mg/dL (0.2-1.0) Aspartate Amino Transf (AST/SGOT) 14 U/L (15-37) 11 U/L (15-37) Alanine Aminotransferase (ALT/SGPT) 11 U/L (14-59) 8 U/L (14-59) Alkaline Phosphatase 78 U/L (46-116) 64 U/L (46-116) Total Protein 7.0 g/dL (6.4-8.2) 5.2 g/dL (6.4-8.2) Albumin 2.8 g/dL (3.4-5.0) 2.3 g/dL (3.4-5.0) Albumin/Globulin Ratio 0.7 (1.0-1.7) 0.8 (1.0-1.7) Test 10/18/19 07:34 Glucose (Fingerstick) 138 mg/dL (70-99) Assessment and Plan Assessmemt and Plan Problems Medical Problems: (1) Acute renal failure Status: Acute Comment Review of Relevant I have reviewed the following items edis (where applicable) has been applied. Labs Laboratory Tests Test 10/16/19 11:57 7/18/20 17:20 10/16/19 20:40 10/16/19 23:05 Glucose (Fingerstick) 157 mg/dL (70-99) 161 mg/dL (70-99) 176 mg/dL (70-99) 134 mg/dL (70-99) Test 10/17/19 07:38 10/17/19 16:44 10/17/19 17:25 10/17/19 21:59 Glucose (Fingerstick) 160 mg/dL (70-99) 181 mg/dL (70-99) 146 mg/dL (70-99) White Blood Count 4.5 x10^3/uL (4.0-11.0) Red Blood Count 3.18 x10^6/uL (3.50-5.40) Hemoglobin 8.4 g/dL (12.0-15.5) Hematocrit 26.6 % (36.0-47.0) Mean Corpuscular Volume 84 fL (79-100) Mean Corpuscular Hemoglobin 27 pg (25-35) Mean Corpuscular Hemoglobin Concent 32 g/dL (31-37) Red Cell Distribution Width 22.3 % (11.5-14.5) Platelet Count 376 x10^3/uL (140-400) Neutrophils (%) (Auto) 64 % (31-73) Lymphocytes (%) (Auto) 17 % (24-48) Monocytes (%) (Auto) 8 % (0-9) Eosinophils (%) (Auto) 11 % (0-3) Basophils (%) (Auto) 1 % (0-3) Neutrophils # (Auto) 2.9 x10^3/uL (1.8-7.7) Lymphocytes # (Auto) 0.8 x10^3/uL (1.0-4.8) Monocytes # (Auto) 0.3 x10^3/uL (0.0-1.1) Eosinophils # (Auto) 0.5 x10^3/uL (0.0-0.7) Basophils # (Auto) 0.0 x10^3/uL (0.0-0.2) Sodium Level 138 mmol/L (136-145) Potassium Level 4.2 mmol/L (3.5-5.1) Chloride Level 104 mmol/L (98-107) Carbon Dioxide Level 24 mmol/L (21-32) Anion Gap 10 (6-14) Blood Urea Nitrogen 35 mg/dL (7-20) Creatinine 1.8 mg/dL (0.6-1.0) Estimated GFR (Cockcroft-Gault) 27.2 BUN/Creatinine Ratio 19 (6-20) Glucose Level 176 mg/dL (70-99) Calcium Level 8.4 mg/dL (8.5-10.1) Total Bilirubin 0.2 mg/dL (0.2-1.0) Aspartate Amino Transf (AST/SGOT) 14 U/L (15-37) Alanine Aminotransferase (ALT/SGPT) 11 U/L (14-59) Alkaline Phosphatase 78 U/L (46-116) Total Protein 7.0 g/dL (6.4-8.2) Albumin 2.8 g/dL (3.4-5.0) Albumin/Globulin Ratio 0.7 (1.0-1.7) Test 10/18/19 04:34 10/18/19 07:34 Sodium Level 141 mmol/L (136-145) Potassium Level 4.6 mmol/L (3.5-5.1) Chloride Level 108 mmol/L (98-107) Carbon Dioxide Level 25 mmol/L (21-32) Anion Gap 8 (6-14) Blood Urea Nitrogen 32 mg/dL (7-20) Creatinine 1.7 mg/dL (0.6-1.0) Estimated GFR (Cockcroft-Gault) 29.1 BUN/Creatinine Ratio 19 (6-20) Glucose Level 161 mg/dL (70-99) Calcium Level 7.9 mg/dL (8.5-10.1) Total Bilirubin 0.1 mg/dL (0.2-1.0) Aspartate Amino Transf (AST/SGOT) 11 U/L (15-37) Alanine Aminotransferase (ALT/SGPT) 8 U/L (14-59) Alkaline Phosphatase 64 U/L (46-116) Total Protein 5.2 g/dL (6.4-8.2) Albumin 2.3 g/dL (3.4-5.0) Albumin/Globulin Ratio 0.8 (1.0-1.7) Glucose (Fingerstick) 138 mg/dL (70-99) Laboratory Tests Test 10/17/19 16:44 10/17/19 17:25 10/17/19 21:59 10/18/19 04:34 Glucose (Fingerstick) 181 mg/dL (70-99) 146 mg/dL (70-99) White Blood Count 4.5 x10^3/uL (4.0-11.0) Red Blood Count 3.18 x10^6/uL (3.50-5.40) Hemoglobin 8.4 g/dL (12.0-15.5) Hematocrit 26.6 % (36.0-47.0) Mean Corpuscular Volume 84 fL (79-100) Mean Corpuscular Hemoglobin 27 pg (25-35) Mean Corpuscular Hemoglobin Concent 32 g/dL (31-37) Red Cell Distribution Width 22.3 % (11.5-14.5) Platelet Count 376 x10^3/uL (140-400) Neutrophils (%) (Auto) 64 % (31-73) Lymphocytes (%) (Auto) 17 % (24-48) Monocytes (%) (Auto) 8 % (0-9) Eosinophils (%) (Auto) 11 % (0-3) Basophils (%) (Auto) 1 % (0-3) Neutrophils # (Auto) 2.9 x10^3/uL (1.8-7.7) Lymphocytes # (Auto) 0.8 x10^3/uL (1.0-4.8) Monocytes # (Auto) 0.3 x10^3/uL (0.0-1.1) Eosinophils # (Auto) 0.5 x10^3/uL (0.0-0.7) Basophils # (Auto) 0.0 x10^3/uL (0.0-0.2) Sodium Level 138 mmol/L (136-145) 141 mmol/L (136-145) Potassium Level 4.2 mmol/L (3.5-5.1) 4.6 mmol/L (3.5-5.1) Chloride Level 104 mmol/L (98-107) 108 mmol/L (98-107) Carbon Dioxide Level 24 mmol/L (21-32) 25 mmol/L (21-32) Anion Gap 10 (6-14) 8 (6-14) Blood Urea Nitrogen 35 mg/dL (7-20) 32 mg/dL (7-20) Creatinine 1.8 mg/dL (0.6-1.0) 1.7 mg/dL (0.6-1.0) Estimated GFR (Cockcroft-Gault) 27.2 29.1 BUN/Creatinine Ratio 19 (6-20) 19 (6-20) Glucose Level 176 mg/dL (70-99) 161 mg/dL (70-99) Calcium Level 8.4 mg/dL (8.5-10.1) 7.9 mg/dL (8.5-10.1) Total Bilirubin 0.2 mg/dL (0.2-1.0) 0.1 mg/dL (0.2-1.0) Aspartate Amino Transf (AST/SGOT) 14 U/L (15-37) 11 U/L (15-37) Alanine Aminotransferase (ALT/SGPT) 11 U/L (14-59) 8 U/L (14-59) Alkaline Phosphatase 78 U/L (46-116) 64 U/L (46-116) Total Protein 7.0 g/dL (6.4-8.2) 5.2 g/dL (6.4-8.2) Albumin 2.8 g/dL (3.4-5.0) 2.3 g/dL (3.4-5.0) Albumin/Globulin Ratio 0.7 (1.0-1.7) 0.8 (1.0-1.7) Test 10/18/19 07:34 Glucose (Fingerstick) 138 mg/dL (70-99) Microbiology 10/15/19 Blood Culture - Preliminary, Resulted NO GROWTH AFTER 2 DAYS 10/14/19 Urine Culture - Final, Complete Medications Current Medications Sodium Chloride 500 ml @ 500 mls/hr 1X ONCE IV Last administered on 10/14/19at 12:49; Start 10/14/19 at 12:30; Stop 10/14/19 at 13:29; Status DC Gabapentin (Neurontin) 100 mg 1X STAT PO Last administered on 10/14/19at 12:49; Start 10/14/19 at 12:29; Stop 10/14/19 at 12:31; Status DC Acetaminophen/ Hydrocodone Bitart (Lortab 5/325) 1 tab 1X ONCE PO Last administered on 10/14/19at 12:49; Start 10/14/19 at 12:30; Stop 10/14/19 at 12:33; Status DC Ondansetron HCl (Zofran Odt) 4 mg 1X ONCE PO Last administered on 10/14/19at 12:49; Start 10/14/19 at 12:30; Stop 10/14/19 at 12:33; Status DC Sodium Chloride 1,000 ml @ 75 mls/hr [id number] IV Last administered on 10/15/19at 03:19; Start 10/14/19 at 14:00; Stop 10/15/19 at 13:59; Status DC Ceftriaxone Sodium (Rocephin) 1 gm 1X ONCE IVP Last administered on 10/14/19at 14:23; Start 10/14/19 at 14:00; Stop 10/14/19 at 14:01; Status DC Ceftriaxone Sodium (Rocephin) 1 gm Q24H IVP Last administered on 10/17/19at 14:09; Start 10/15/19 at 14:00 Sodium Chloride (Normal Saline Flush) 3 ml QSHIFT PRN IV AFTER MEDS AND BLOOD DRAWS; Start 10/14/19 at 20:15 Ondansetron HCl (Zofran) 4 mg PRN Q4HRS PRN IV NAUSEA/VOMITING; Start 10/14/19 at 20:15 Acetaminophen (Tylenol) 650 mg PRN Q4HRS PRN PO TEMP OVER 100.4F; Start 10/14/19 at 20:15; Stop 10/14/19 at 20:26; Status DC Al Hydroxide/Mg Hydroxide (Mylanta Plus Xs) 30 ml PRN DAILY PRN PO HEARTBURN / GAS; Start 10/14/19 at 20:15 Sodium Monofluorophosphate (Fleet Adult) 133 ml PRN DAILY PRN [place] CONSTIPATION; Start 10/14/19 at 20:15 Docusate Sodium (Colace) 100 mg PRN BID PRN PO HARD STOOLS Last administered on 10/17/19at 14:11; Start 10/14/19 at 20:15 Albuterol Sulfate (Ventolin Neb Soln) 2.5 mg PRN Q4HRS PRN NEB SHORTNESS OF BREATH; Start 10/14/19 at 20:15 Guaifenesin (Robitussin) 200 mg PRN Q4HRS PRN PO COUGH; Start 10/14/19 at 20:15 Enoxaparin Sodium (Lovenox 30mg Syringe) 30 mg Q24H SQ Last administered on 10/15/19at 08:25; Start 10/15/19 at 09:00; Stop 10/15/19 at 13:49; Status DC Acetaminophen (Tylenol) 325 mg PRN QID PRN PO PAIN MILD; Start 10/14/19 at 20:15 Atorvastatin Calcium (Lipitor) 40 mg QHS PO Last administered on 10/17/19at 22:12; Start 10/14/19 at 21:00 Diltiazem HCl (Cardizem 24hr Cd) 120 mg DAILY PO Last administered on 10/18/19at 08:18; Start 10/15/19 at 09:00 Ergocalciferol (Vitamin D2) 50,000 unit WEEKLY PO ; Start 10/22/19 at 09:00 Pantoprazole Sodium (Protonix) 40 mg DAILY07 PO Last administered on 10/18/19at 06:17; Start 10/15/19 at 07:00 Nystatin (Nystop) 1 melissa QID TP Last administered on 10/18/19at 08:19; Start 09/28 09/17 at 21:00 Acetaminophen (Tylenol) 650 mg PRN QID PRN PO PAIN MODERATE Last administered on 10/18/19at 03:25; Start 10/14/19 at 20:30 Lactobacillus Rhamnosus (Culturelle) 1 cap BID PO Last administered on 10/18/19at 08:18; Start 10/15/19 at 21:00 Enoxaparin Sodium (Lovenox 40mg Syringe) 40 mg Q12H SQ Last administered on 10/18/19at 08:18; Start 10/15/19 at 21:00 Active Scripts Active Tylenol (Acetaminophen) 325 Mg Tablet 1-2 Tab PO QID PRN Lantus (Insulin Glargine,Hum.rec.anlog) 100 Unit/1 Ml Vial 20 Unit SQ BID 30 Days Cozaar (Losartan Potassium) 25 Mg Tablet 25 Mg PO DAILY Diltiazem 24HR Cd (Diltiazem Hcl) 120 Mg Cap.er.24h 120 Mg PO DAILY Reported Furosemide 40 Mg Tablet 1 Tab PO DAILY Vitamin D2 (Ergocalciferol (Vitamin D2)) 50,000 Unit Capsule 1 Cap PO WEEKLY Pantoprazole Sodium (Pantoprazole Sodium) 40 Mg Tablet.dr 1 Tab PO DAILY Atorvastatin Calcium 40 Mg Tablet 1 Tab PO QHS Allopurinol 300 Mg Tablet 1 Tab PO DAILY Vitals/I & O Vital Sign - Last 24 Hours 10/17/19 10/17/19 10/17/19 10/17/19 09:34 11:00 15:00 19:00 Temp 97.8 98.0 97.9 97.8 98.0 97.9 Pulse 72 70 68 72 Resp 16 18 16 B/P (MAP) 126/49 129/48 (75) 132/50 (77) 125/46 (72) Pulse Ox 94 93 93 O2 Delivery Room Air Room Air 10/17/19 10/17/19 10/18/19 10/18/19 20:00 23:00 03:00 07:00 Temp 98.0 98.0 98.1 98.0 98.0 98.1 Pulse 72 69 67 Resp 16 18 18 B/P (MAP) 120/40 (66) 123/47 (72) 117/38 (64) Pulse Ox 98 97 100 O2 Delivery Room Air Room Air Room Air Room Air 10/18/19 10/18/19 08:06 08:18 Pulse 67 B/P (MAP) 117/38 O2 Delivery Room Air Intake and Output 10/17/19 10/17/19 10/18/19 15:00 23:00 07:00 Intake Total 100 ml 390 ml Output Total 200 ml Balance -100 ml 390 ml Justicifation of Admission Dx: Justifications for Admission: Justification of Admission Dx: Yes Acute Renal Failure: RF Can't Be Managed Outpt Chronic Renal Failure: Renail Failure MARTY JACQUES MD Oct 18, 2019 09:20
--- NOTE | 2019-10-18 11:26 | PDOC ---
Subjective: Subjective: No GI complaints. Objective: Objective: Stool charted. Vital Signs: Vital Signs Date Time Temp Pulse Resp B/P (MAP) Pulse Ox O2 Delivery O2 Flow Rate FiO2 10/18/19 09:28 98 Room Air 10/18/19 08:18 67 117/38 10/18/19 07:00 98.1 18 98.1 Labs: Laboratory Tests Test 10/17/19 16:44 10/17/19 17:25 10/17/19 21:59 10/18/19 04:34 Glucose (Fingerstick) 181 mg/dL 146 mg/dL White Blood Count 4.5 x10^3/uL Red Blood Count 3.18 x10^6/uL Hemoglobin 8.4 g/dL Hematocrit 26.6 % Mean Corpuscular Volume 84 fL Mean Corpuscular Hemoglobin 27 pg Mean Corpuscular Hemoglobin Concent 32 g/dL Red Cell Distribution Width 22.3 % Platelet Count 376 x10^3/uL Neutrophils (%) (Auto) 64 % Lymphocytes (%) (Auto) 17 % Monocytes (%) (Auto) 8 % Eosinophils (%) (Auto) 11 % Basophils (%) (Auto) 1 % Neutrophils # (Auto) 2.9 x10^3/uL Lymphocytes # (Auto) 0.8 x10^3/uL Monocytes # (Auto) 0.3 x10^3/uL Eosinophils # (Auto) 0.5 x10^3/uL Basophils # (Auto) 0.0 x10^3/uL Sodium Level 138 mmol/L 141 mmol/L Potassium Level 4.2 mmol/L 4.6 mmol/L Chloride Level 104 mmol/L 108 mmol/L Carbon Dioxide Level 24 mmol/L 25 mmol/L Anion Gap 10 8 Blood Urea Nitrogen 35 mg/dL 32 mg/dL Creatinine 1.8 mg/dL 1.7 mg/dL Estimated GFR (Cockcroft-Gault) 27.2 29.1 BUN/Creatinine Ratio 19 19 Glucose Level 176 mg/dL 161 mg/dL Calcium Level 8.4 mg/dL 7.9 mg/dL Total Bilirubin 0.2 mg/dL 0.1 mg/dL Aspartate Amino Transf (AST/SGOT) 14 U/L 11 U/L Alanine Aminotransferase (ALT/SGPT) 11 U/L 8 U/L Alkaline Phosphatase 78 U/L 64 U/L Total Protein 7.0 g/dL 5.2 g/dL Albumin 2.8 g/dL 2.3 g/dL Albumin/Globulin Ratio 0.7 0.8 Test 10/18/19 07:34 Glucose (Fingerstick) 138 mg/dL BLOOD CULTURE LC Final Final STAPHYLOCOCCUS EPIDERMIDIS on 10/16/19 at 0959 URINE CULTURE Final Final No Growth on 10/15/19 at 0947 Imaging: Renal US IMPRESSION: No hydronephrosis. PE: GEN: NAD - getting off commode LUNGS: room air ABD: non-distended NEURO/PSYCH: A & O 3 A/P: Hip pain - ?ongoing Chronic anemia - mixed iron deficiency/chronic illness; stable, on PO iron at home GERD - on PPI, past EGD watermelon stomach CRC screen - UTD H/o A Fib and PE on Warfarin - held CKD -- Continue PPI, restart iron. DC per primary. Justicifation of Admission Dx: Justifications for Admission: Justification of Admission Dx: Yes Acute Renal Failure: RF Can't Be Managed Outpt Chronic Renal Failure: Renail Failure MARIS RYDER Oct 18, 2019 11:26
[2019-10-18 11:27] VITALS: BP 125/47
[2019-10-18 12:26] LABS: PROTHROMBIN TIME PATIENT 15.4 SEC (11.7-14.0)
[2019-10-18] MEDS: cefTRIAXone IV Push 1 GM VIAL. IVP SCH (14:27)
[2019-10-18 15:13] VITALS: BP 117/29
--- NOTE | 2019-10-18 15:24 | PDOC ---
Renal-Progress Notes Subjective Notes Notes NO NEW COMPLAINTS History of Present Illness Hx of present illness STABLE Vitals Vitals Vital Signs Date Time Temp Pulse Resp B/P (MAP) Pulse Ox O2 Delivery O2 Flow Rate FiO2 10/18/19 15:13 97.6 68 18 117/29 (58) 98 Room Air 97.6 Weight Weight [ ] I.O. Intake and Output Intake and Output 10/18/19 07:00 Intake Total 490 ml Output Total 200 ml Balance 290 ml Intake Oral 490 ml Output Urine Total 200 ml # Voids 6 # Bowel Movements 1 Labs Labs Laboratory Tests Test 10/17/19 16:44 10/17/19 17:25 10/17/19 21:59 10/18/19 04:34 Glucose (Fingerstick) 181 mg/dL (70-99) 146 mg/dL (70-99) White Blood Count 4.5 x10^3/uL (4.0-11.0) Red Blood Count 3.18 x10^6/uL (3.50-5.40) Hemoglobin 8.4 g/dL (12.0-15.5) Hematocrit 26.6 % (36.0-47.0) Mean Corpuscular Volume 84 fL (79-100) Mean Corpuscular Hemoglobin 27 pg (25-35) Mean Corpuscular Hemoglobin Concent 32 g/dL (31-37) Red Cell Distribution Width 22.3 % (11.5-14.5) Platelet Count 376 x10^3/uL (140-400) Neutrophils (%) (Auto) 64 % (31-73) Lymphocytes (%) (Auto) 17 % (24-48) Monocytes (%) (Auto) 8 % (0-9) Eosinophils (%) (Auto) 11 % (0-3) Basophils (%) (Auto) 1 % (0-3) Neutrophils # (Auto) 2.9 x10^3/uL (1.8-7.7) Lymphocytes # (Auto) 0.8 x10^3/uL (1.0-4.8) Monocytes # (Auto) 0.3 x10^3/uL (0.0-1.1) Eosinophils # (Auto) 0.5 x10^3/uL (0.0-0.7) Basophils # (Auto) 0.0 x10^3/uL (0.0-0.2) Sodium Level 138 mmol/L (136-145) 141 mmol/L (136-145) Potassium Level 4.2 mmol/L (3.5-5.1) 4.6 mmol/L (3.5-5.1) Chloride Level 104 mmol/L (98-107) 108 mmol/L (98-107) Carbon Dioxide Level 24 mmol/L (21-32) 25 mmol/L (21-32) Anion Gap 10 (6-14) 8 (6-14) Blood Urea Nitrogen 35 mg/dL (7-20) 32 mg/dL (7-20) Creatinine 1.8 mg/dL (0.6-1.0) 1.7 mg/dL (0.6-1.0) Estimated GFR (Cockcroft-Gault) 27.2 29.1 BUN/Creatinine Ratio 19 (6-20) 19 (6-20) Glucose Level 176 mg/dL (70-99) 161 mg/dL (70-99) Calcium Level 8.4 mg/dL (8.5-10.1) 7.9 mg/dL (8.5-10.1) Total Bilirubin 0.2 mg/dL (0.2-1.0) 0.1 mg/dL (0.2-1.0) Aspartate Amino Transf (AST/SGOT) 14 U/L (15-37) 11 U/L (15-37) Alanine Aminotransferase (ALT/SGPT) 11 U/L (14-59) 8 U/L (14-59) Alkaline Phosphatase 78 U/L (46-116) 64 U/L (46-116) Total Protein 7.0 g/dL (6.4-8.2) 5.2 g/dL (6.4-8.2) Albumin 2.8 g/dL (3.4-5.0) 2.3 g/dL (3.4-5.0) Albumin/Globulin Ratio 0.7 (1.0-1.7) 0.8 (1.0-1.7) Prothrombin Time 15.4 SEC (11.7-14.0) Prothromb Time International Ratio 1.3 (0.8-1.1) Test 10/18/19 07:34 10/18/19 11:50 Glucose (Fingerstick) 138 mg/dL (70-99) 206 mg/dL (70-99) Micro Micro Microbiology 10/15/19 Blood Culture - Preliminary, Resulted NO GROWTH AFTER 3 DAYS 10/14/19 Urine Culture - Final, Complete Review of Systems Constitutional: yes: weakness, alert Ears/Nose/Throat: Yes: no symptom reported Eyes: Yes: no symptom reported Pulmonary: Yes no symptom reported Cardiovascular: Yes no symptom reported Gastrointestional: Yes: no symptom reported Genitourinary: Yes: no symptom reported Musculoskeletal: Yes: no symptom reported Skin: Yes no symptom reported Physical Exam General Appearance: no apparent distress Skin: warm Respiratory: bilateral CTA Heart: S1S2 Abdomen: soft, bowel sounds present Genitourinary: bladder flat Extremities: pulses present Neurology: alert Musculoskeletal: low back pain Assessment Assessment IMP UTI BOBBY-IMPROVED CKD STAGE 3B TO 4 ANEMIA OF CKD PLAN IV IRON BEATRICE OP NEEDED ANTIBIOTICS WILL FOLLOW LORRIE CHAVIS MD Oct 18, 2019 15:24
[2019-10-18] MEDS ORDERED: WARFARIN 3 MG TABLET. PO ONE (16:00)
[2019-10-18] MEDS: FERROUS SULFATE 325 MG TABLET. PO SCH (16:50)
[2019-10-18 19:00] VITALS: BP 117/58
[2019-10-18] MEDS: POLYETHYLENE GLYCOL 3350 17 GM PACKET. PO PRN (20:48)
[2019-10-18] MEDS: DOCUSATE SODIUM 100 MG CAPSULE. PO PRN (20:48)
[2019-10-18] MEDS: ATORVASTATIN CALCIUM 40 MG TABLET. PO SCH (20:48)
[2019-10-18 23:00] VITALS: BP 117/38
[2019-10-19 03:00] VITALS: BP 127/50
[2019-10-19] MEDS: PANTOPRAZOLE 40 MG TABLET.DR. PO SCH (05:44)
[2019-10-19 06:56] LABS: PROTHROMBIN TIME PATIENT 14.6 SEC (11.7-14.0)
[2019-10-19 07:08] LABS: CALCIUM 8.3 mg/dL (8.5-10.1); CREATININE 1.5 mg/dL (0.6-1.0); GFR 33.6; POTASSIUM 4.3 mmol/L (3.5-5.1)
[2019-10-19 07:19] VITALS: BP 121/79
[2019-10-19] MEDS: FERROUS SULFATE 325 MG TABLET. PO SCH ×2 (07:47→17:56)
[2019-10-19] MEDS: LACTOBACILLUS RHAMNOSUS GG 1 CAPSULE. PO SCH ×2 (07:47→21:13)
[2019-10-19] MEDS: NYSTATIN TOPICAL POWDER 15GM BOTTLE. TP SCH ×4 (07:51→21:13)
--- NOTE | 2019-10-19 08:25 | PDOC ---
PROGRESS NOTES Chief Complaint Chief Complaint VTE Prophylaxis Ordered VTE Prophylaxis Devices: Yes VTE Pharmacological Prophylaxi: Yes IMPRESSION Assessment/Plan Impression: UTI (urinary tract infection) MORBID OBESITY Acute renal failure DEHYDRATION normocytic anemia, CHRONIC BLOOD LOSS ANEMIA plan ADMITTED Consult nephrology iv antibiotics, EMPERIC IV FLUID SUPPORT AM BMP nephrology consult HOLD ALLOPURINOL AND LOSARTEN DUE TO BOBBY follow renal fx closely 10/17 RENAL FUNCTION SLOWLY improving , c/o right hip pain, PT/OT TO SEE RESTART COUMADIN D/W RN * Skin Integrity Clinical Presentation * Stable Evaluation Complexity Level * Moderate Complexity Pt/caregiver agrees with plan of care/goals * Yes Patient condition at conclusion of therapy * Pt in chair * Call light in reach * Phone in reach * PtIn no apparent distress * Pt denies further needs Communicated Patient Care With (Name, Title) * Josette RN, Sury OT Goal 1 - Bed Mobility Assistance Required * Independent Goal 2 - Transfers Assistance Required * Independent Goal 2 - Transfer Type * Sit to Stand Goal 3 - Ambulation Assistance Required * Independent Goal 3 - Ambulation Distance * 100' Goal 3 - Ambulation Device * Roller Walker Goal 4 - Stairs Assistance Required * Supervision Goal 4 - Number of Stairs * 2-4 Goal 4 - Device on Stairs * Roller Walker * Rail on Right * Rail on Left Goal 5 * Indep with HEP. Treatment Plan * Therapeutic Exercise * Bed Mobility Training * Transfer training * Gait Training * Dynamic Balance Training Frequency of Treatment Expected * 7 visits/week Duration of Treatment Expected * 2 weeks Discharge Recommendations * [facility] Discharge Recommendation - DME * None Discharge Recommendation Comments * SNF at this time. History of Present Illness History of Present Illness SEEN IN ER WITH HYPOGLYCEMIA patient has chronic left hip pain was admitted, had rehab now pain is increasing again has bilateral foot burning pain denies medications for this. no fever, no cough. no chest pain. NOTES little dizzy when she stood up so gave tube oral glucose came up from 59 to 85. ate breakfast at six am. used insulin at 5 am. insulin used sliding scale at meals normally. 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 [] HENT: Normocephalic, atraumatic, bilateral external ears normal, oropharynx moist, no oral exudates, nose normal. [] Eyes: PERRLA, EOMI, conjunctiva normal, no discharge. [] Neck: Normal range of motion, no tenderness, supple, no stridor. [] Cardiovascular:Heart rate regular rhythm, no murmur [] Lungs & Thorax: Bilateral breath sounds clear to auscultation [] Abdomen: Bowel sounds normal, soft, no tenderness, no masses, no pulsatile masses. [] Skin: Warm, dry, no erythema, no rash. [] Back: No tenderness, no CVA tenderness. [] Extremities: No tenderness, no cyanosis, no clubbing, ROM intact, no edema. [] Neurologic: Alert and oriented X 3, normal motor function, normal sensory function, no focal deficits noted. [] Psychologic: Affect normal, judgement normal, mood normal. [] General: Alert, Oriented X3, Cooperative, No acute distress HEENT: Atraumatic, PERRLA, EOMI, Mucous membr. moist/pink Heart: RRR, no thrills Breasts: Not examined Abdomen: Soft Rectal Exam: not examined Extremities: No cyanosis Neuro: Normal speech, Strength at 5/5 X4 ext, Sensation intact, Cranial nerves 3-12 NL Psych/Mental Status: Mental status NL, Mood NL General: Alert, Oriented X3, Cooperative, No acute distress Heart: Regular rate, Normal S1, Normal S2, No murmurs Lungs: Clear Abdomen: Normal bowel sounds, Soft, No tenderness Extremities: No clubbing, No cyanosis, No edema Skin: No significant lesion Labs LABS Laboratory Tests Test 10/18/19 11:50 10/18/19 16:34 10/18/19 20:29 10/19/19 06:10 Glucose (Fingerstick) 206 mg/dL (70-99) 170 mg/dL (70-99) 171 mg/dL (70-99) Sodium Level 141 mmol/L (136-145) Potassium Level 4.3 mmol/L (3.5-5.1) Chloride Level 108 mmol/L (98-107) Carbon Dioxide Level 25 mmol/L (21-32) Anion Gap 8 (6-14) Blood Urea Nitrogen 26 mg/dL (7-20) Creatinine 1.5 mg/dL (0.6-1.0) Estimated GFR (Cockcroft-Gault) 33.6 Glucose Level 160 mg/dL (70-99) Calcium Level 8.3 mg/dL (8.5-10.1) Test 10/19/19 06:16 10/19/19 07:40 Prothrombin Time 14.6 SEC (11.7-14.0) Prothromb Time International Ratio 1.2 (0.8-1.1) Glucose (Fingerstick) 140 mg/dL (70-99) Assessment and Plan Assessmemt and Plan Problems Medical Problems: (1) Acute renal failure Status: Acute Comment Review of Relevant I have reviewed the following items edis (where applicable) has been applied. Labs Laboratory Tests Test 10/17/19 16:44 10/17/19 17:25 10/17/19 21:59 10/18/19 04:34 Glucose (Fingerstick) 181 mg/dL (70-99) 146 mg/dL (70-99) White Blood Count 4.5 x10^3/uL (4.0-11.0) Red Blood Count 3.18 x10^6/uL (3.50-5.40) Hemoglobin 8.4 g/dL (12.0-15.5) Hematocrit 26.6 % (36.0-47.0) Mean Corpuscular Volume 84 fL (79-100) Mean Corpuscular Hemoglobin 27 pg (25-35) Mean Corpuscular Hemoglobin Concent 32 g/dL (31-37) Red Cell Distribution Width 22.3 % (11.5-14.5) Platelet Count 376 x10^3/uL (140-400) Neutrophils (%) (Auto) 64 % (31-73) Lymphocytes (%) (Auto) 17 % (24-48) Monocytes (%) (Auto) 8 % (0-9) Eosinophils (%) (Auto) 11 % (0-3) Basophils (%) (Auto) 1 % (0-3) Neutrophils # (Auto) 2.9 x10^3/uL (1.8-7.7) Lymphocytes # (Auto) 0.8 x10^3/uL (1.0-4.8) Monocytes # (Auto) 0.3 x10^3/uL (0.0-1.1) Eosinophils # (Auto) 0.5 x10^3/uL (0.0-0.7) Basophils # (Auto) 0.0 x10^3/uL (0.0-0.2) Sodium Level 138 mmol/L (136-145) 141 mmol/L (136-145) Potassium Level 4.2 mmol/L (3.5-5.1) 4.6 mmol/L (3.5-5.1) Chloride Level 104 mmol/L (98-107) 108 mmol/L (98-107) Carbon Dioxide Level 24 mmol/L (21-32) 25 mmol/L (21-32) Anion Gap 10 (6-14) 8 (6-14) Blood Urea Nitrogen 35 mg/dL (7-20) 32 mg/dL (7-20) Creatinine 1.8 mg/dL (0.6-1.0) 1.7 mg/dL (0.6-1.0) Estimated GFR (Cockcroft-Gault) 27.2 29.1 BUN/Creatinine Ratio 19 (6-20) 19 (6-20) Glucose Level 176 mg/dL (70-99) 161 mg/dL (70-99) Calcium Level 8.4 mg/dL (8.5-10.1) 7.9 mg/dL (8.5-10.1) Total Bilirubin 0.2 mg/dL (0.2-1.0) 0.1 mg/dL (0.2-1.0) Aspartate Amino Transf (AST/SGOT) 14 U/L (15-37) 11 U/L (15-37) Alanine Aminotransferase (ALT/SGPT) 11 U/L (14-59) 8 U/L (14-59) Alkaline Phosphatase 78 U/L (46-116) 64 U/L (46-116) Total Protein 7.0 g/dL (6.4-8.2) 5.2 g/dL (6.4-8.2) Albumin 2.8 g/dL (3.4-5.0) 2.3 g/dL (3.4-5.0) Albumin/Globulin Ratio 0.7 (1.0-1.7) 0.8 (1.0-1.7) Prothrombin Time 15.4 SEC (11.7-14.0) Prothromb Time International Ratio 1.3 (0.8-1.1) Test 10/18/19 07:34 10/18/19 11:50 10/18/19 16:34 10/18/19 20:29 Glucose (Fingerstick) 138 mg/dL (70-99) 206 mg/dL (70-99) 170 mg/dL (70-99) 171 mg/dL (70-99) Test 10/19/19 06:10 10/19/19 06:16 10/19/19 07:40 Sodium Level 141 mmol/L (136-145) Potassium Level 4.3 mmol/L (3.5-5.1) Chloride Level 108 mmol/L (98-107) Carbon Dioxide Level 25 mmol/L (21-32) Anion Gap 8 (6-14) Blood Urea Nitrogen 26 mg/dL (-) Creatinine 1.5 mg/dL (0.6-1.0) Estimated GFR (Cockcroft-Gault) 33.6 Glucose Level 160 mg/dL (70-99) Calcium Level 8.3 mg/dL (8.5-10.1) Prothrombin Time 14.6 SEC (11.7-14.0) Prothromb Time International Ratio 1.2 (0.8-1.1) Glucose (Fingerstick) 140 mg/dL (70-99) Laboratory Tests Test 10/18/19 11:50 10/18/19 16:34 10/18/19 20:29 10/19/19 06:10 Glucose (Fingerstick) 206 mg/dL (70-99) 170 mg/dL (70-99) 171 mg/dL (70-99) Sodium Level 141 mmol/L (136-145) Potassium Level 4.3 mmol/L (3.5-5.1) Chloride Level 108 mmol/L (98-107) Carbon Dioxide Level 25 mmol/L (21-32) Anion Gap 8 (6-14) Blood Urea Nitrogen 26 mg/dL (7-20) Creatinine 1.5 mg/dL (0.6-1.0) Estimated GFR (Cockcroft-Gault) 33.6 Glucose Level 160 mg/dL (70-99) Calcium Level 8.3 mg/dL (8.5-10.1) Test 10/19/19 06:16 10/19/19 07:40 Prothrombin Time 14.6 SEC (11.7-14.0) Prothromb Time International Ratio 1.2 (0.8-1.1) Glucose (Fingerstick) 140 mg/dL (70-99) Microbiology 10/15/19 Blood Culture - Preliminary, Resulted NO GROWTH AFTER 3 DAYS 10/14/19 Urine Culture - Final, Complete Medications Current Medications Sodium Chloride 500 ml @ 500 mls/hr 1X ONCE IV Last administered on 10/14/19at 12:49; Start 10/14/19 at 12:30; Stop 10/14/19 at 13:29; Status DC Gabapentin (Neurontin) 100 mg 1X STAT PO Last administered on 10/14/19at 12:49; Start 10/14/19 at 12:29; Stop 10/14/19 at 12:31; Status DC Acetaminophen/ Hydrocodone Bitart (Lortab 5/325) 1 tab 1X ONCE PO Last administered on 10/14/19at 12:49; Start 10/14/19 at 12:30; Stop 10/14/19 at 12 :33; Status DC Ondansetron HCl (Zofran Odt) 4 mg 1X ONCE PO Last administered on 10/14/19at 12:49; Start 10/14/19 at 12:30; Stop 10/14/19 at 12:33; Status DC Sodium Chloride 1,000 ml @ 75 mls/hr [id number] IV Last administered on 10/15/19at 03:19; Start 10/14/19 at 14:00; Stop 10/15/19 at 13:59; Status DC Ceftriaxone Sodium (Rocephin) 1 gm 1X ONCE IVP Last administered on 10/14/19at 14:23; Start 10/14/19 at 14:00; Stop 10/14/19 at 14:01; Status DC Ceftriaxone Sodium (Rocephin) 1 gm Q24H IVP Last administered on 10/18/19at 14:27; Start 10/15/19 at 14:00 Sodium Chloride (Normal Saline Flush) 3 ml QSHIFT PRN IV AFTER MEDS AND BLOOD DRAWS; Start 10/14/19 at 20:15 Ondansetron HCl (Zofran) 4 mg PRN Q4HRS PRN IV NAUSEA/VOMITING; Start 10/14/19 at 20:15 Acetaminophen (Tylenol) 650 mg PRN Q4HRS PRN PO TEMP OVER 100.4F; Start 10/14/19 at 20:15; Stop 10/14/19 at 20:26; Status DC Al Hydroxide/Mg Hydroxide (Mylanta Plus Xs) 30 ml PRN DAILY PRN PO HEARTBURN / GAS; Start 10/14/19 at 20:15 Sodium Monofluorophosphate (Fleet Adult) 133 ml PRN DAILY PRN SC CONSTIPATION; Start 10/14/19 at 20:15 Docusate Sodium (Colace) 100 mg PRN BID PRN PO HARD STOOLS Last administered on 10/18/19at 20:48; Start 10/14/19 at 20:15 Albuterol Sulfate (Ventolin Neb Soln) 2.5 mg PRN Q4HRS PRN NEB SHORTNESS OF BREATH; Start 10/14/19 at 20:15 Guaifenesin (Robitussin) 200 mg PRN Q4HRS PRN PO COUGH; Start 10/14/19 at 20:15 Enoxaparin Sodium (Lovenox 30mg Syringe) 30 mg Q24H SQ Last administered on 10/15/19at 08:25; Start 10/15/19 at 09:00; Stop 10/15/19 at 13:49; Status DC Acetaminophen (Tylenol) 325 mg PRN QID PRN PO PAIN MILD; Start 10/14/19 at 20:15 Atorvastatin Calcium (Lipitor) 40 mg QHS PO Last administered on 10/18/19at 20:48; Start 10/14/19 at 21:00 Diltiazem HCl (Cardizem 24hr Cd) 120 mg DAILY PO Last administered on 10/19/19at 07:48; Start 10/15/19 at 09:00 Ergocalciferol (Vitamin D2) 50,000 unit WEEKLY PO ; Start 10/22/19 at 09:00 Pantoprazole Sodium (Protonix) 40 mg DAILY07 PO Last administered on 10/19/19 05:44; Start 10/15/19 at 07:00 Nystatin (Nystop) 1 melissa QID TP Last administered on 10/19/19 07:51; Start 10/14/19 at 21:00 Acetaminophen (Tylenol) 650 mg PRN QID PRN PO PAIN MODERATE Last administered on 10/18/19 14:27; Start 10/14/19 at 20:30 Lactobacillus Rhamnosus (Culturelle) 1 cap BID PO Last administered on 10/19/19 07:47; Start 10/15/19 at 21:00 Enoxaparin Sodium (Lovenox 40mg Syringe) 40 mg Q12H SQ Last administered on 10/18/19 08:18; Start 10/15/19 at 21:00; Stop 10/18/19 at 12:07; Status DC Ferrous Sulfate (Feosol) 325 mg BIDWMEALS PO Last administered on 10/19/19at 07:47; Start 10/18/19 at 17:00 Polyethylene Glycol (miraLAX PACKET) 17 gm PRN DAILY PRN PO CONSTIPATION Last administered on 10/18/19 20:48; Start 10/18/19 at 11:30 Warfarin Sodium (Coumadin) 6 mg 1X WARF ONCE PO Last administered on 10/18/19 16:51; Start 10/18/19 at 16:00; Stop 10/18/19 at 16:01; Status DC Warfarin Sodium (Coumadin Per Physician) 1 each PRN DAILY PRN MC SEE COMMENTS; Start 10/18/19 at 12:15 Active Scripts Active Tylenol (Acetaminophen) 325 Mg Tablet 1-2 Tab PO QID PRN Lantus (Insulin Glargine,Hum.rec.anlog) 100 Unit/1 Ml Vial 20 Unit SQ BID 30 Days Cozaar (Losartan Potassium) 25 Mg Tablet 25 Mg PO DAILY Diltiazem 24HR Cd (Diltiazem Hcl) 120 Mg Cap.er.24h 120 Mg PO DAILY Reported Furosemide 40 Mg Tablet 1 Tab PO DAILY Vitamin D2 (Ergocalciferol (Vitamin D2)) 50,000 Unit Capsule 1 Cap PO WEEKLY Pantoprazole Sodium (Pantoprazole Sodium) 40 Mg Tablet.dr 1 Tab PO DAILY Atorvastatin Calcium 40 Mg Tablet 1 Tab PO QHS Allopurinol 300 Mg Tablet 1 Tab PO DAILY Vitals/I & O Vital Sign - Last 24 Hours 10/18/19 10/18/19 10/18/19 10/18/19 09:28 11:27 15:13 19:00 Temp 97.9 97.6 97.9 97.9 97.6 97.9 Pulse 73 68 71 Resp 20 18 18 B/P (MAP) 125/47 (73) 117/29 (58) 117/58 (77) Pulse Ox 98 100 98 99 O2 Delivery Room Air Room Air Room Air Room Air 10/18/19 10/18/19 10/19/19 10/19/19 20:00 23:00 03:00 07:19 Temp 98.2 98.0 98.2 98.2 98.0 98.2 Pulse 69 63 63 Resp 18 18 18 B/P (MAP) 117/38 (64) 127/50 (75) 121/79 (93) Pulse Ox 98 98 99 O2 Delivery Room Air Room Air Room Air Room Air 10/19/19 10/19/19 07:48 08:00 Pulse 63 B/P (MAP) 121/79 O2 Delivery Room Air Intake and Output 10/18/19 10/18/19 10/19/19 15:00 23:00 07:00 Intake Total 200 ml 575 ml Balance 200 ml 575 ml Justicifation of Admission Dx: Justifications for Admission: Justification of Admission Dx: Yes Acute Renal Failure: RF Can't Be Managed Outpt Chronic Renal Failure: Renail Failure MARTY JACQUES MD Oct 19, 2019 08:25
--- NOTE | 2019-10-19 10:09 | PDOC ---
Objective: Objective: No GI concerns per nurse. Possible DC to SNU soon. Stooled yesterday. Looks like restarted on Warfarin yesterday. Vital Signs: Vital Signs Date Time Temp Pulse Resp B/P (MAP) Pulse Ox O2 Delivery O2 Flow Rate FiO2 10/19/19 08:00 Room Air 10/19/19 07:48 63 121/79 10/19/19 07:19 98.2 18 99 98.2 Labs: Laboratory Tests Test 10/18/19 11:50 10/18/19 16:34 10/18/19 20:29 10/19/19 06:10 Glucose (Fingerstick) 206 mg/dL 170 mg/dL 171 mg/dL Sodium Level 141 mmol/L Potassium Level 4.3 mmol/L Chloride Level 108 mmol/L Carbon Dioxide Level 25 mmol/L Anion Gap 8 Blood Urea Nitrogen 26 mg/dL Creatinine 1.5 mg/dL Estimated GFR (Cockcroft-Gault) 33.6 Glucose Level 160 mg/dL Calcium Level 8.3 mg/dL Test 10/19/19 06:16 10/19/19 07:40 Prothrombin Time 14.6 SEC Prothromb Time International Ratio 1.2 Glucose (Fingerstick) 140 mg/dL BLOOD CULTURE Preliminary NO GROWTH AFTER 4 DAYS PE: GEN: NAD - in chair LUNGS: room air HEART: RRR ABD: non-distended NEURO/PSYCH: sleeping, not awakened A/P: ?hip pain Chronic GIDEON/ACD - iron restarted; past scopes per consult note H/o A Fib and PE - Warfarin restarted CKD -- Remains stable from GI standpoint. DC per primary. Justicifation of Admission Dx: Justifications for Admission: Justification of Admission Dx: Yes Acute Renal Failure: RF Can't Be Managed Outpt Chronic Renal Failure: Renail Failure MARIS RYDER Oct 19, 2019 10:09
[2019-10-19 11:15] VITALS: BP 131/56
--- NOTE | 2019-10-19 11:42 | PDOC ---
Renal-Progress Notes Subjective Notes Notes NO NEW COMPLAINTS History of Present Illness Hx of present illness STABLE Vitals Vitals Vital Signs Date Time Temp Pulse Resp B/P (MAP) Pulse Ox O2 Delivery O2 Flow Rate FiO2 10/19/19 11:15 98.2 69 18 131/56 (81) 97 Room Air 98.2 Weight Weight [ ] I.O. Intake and Output Intake and Output 10/19/19 07:00 Intake Total 775 ml Balance 775 ml Intake Oral 775 ml # Voids 4 # Bowel Movements 1 Labs Labs Laboratory Tests Test 10/18/19 11:50 10/18/19 16:34 10/18/19 20:29 10/19/19 06:10 Glucose (Fingerstick) 206 mg/dL (70-99) 170 mg/dL (70-99) 171 mg/dL (70-99) Sodium Level 141 mmol/L (136-145) Potassium Level 4.3 mmol/L (3.5-5.1) Chloride Level 108 mmol/L (98-107) Carbon Dioxide Level 25 mmol/L (21-32) Anion Gap 8 (6-14) Blood Urea Nitrogen 26 mg/dL (-) Creatinine 1.5 mg/dL (0.6-1.0) Estimated GFR (Cockcroft-Gault) 33.6 Glucose Level 160 mg/dL (70-99) Calcium Level 8.3 mg/dL (8.5-10.1) Test 10/19/19 06:16 10/19/19 07:40 Prothrombin Time 14.6 SEC (11.7-14.0) Prothromb Time International Ratio 1.2 (0.8-1.1) Glucose (Fingerstick) 140 mg/dL (70-99) Micro Micro Microbiology 10/15/19 Blood Culture - Preliminary, Resulted NO GROWTH AFTER 3 DAYS 10/14/19 Urine Culture - Final, Complete Review of Systems Constitutional: yes: weakness, alert Ears/Nose/Throat: Yes: no symptom reported Eyes: Yes: no symptom reported Pulmonary: Yes no symptom reported Cardiovascular: Yes no symptom reported Gastrointestional: Yes: no symptom reported Genitourinary: Yes: no symptom reported Musculoskeletal: Yes: no symptom reported Skin: Yes no symptom reported Physical Exam General Appearance: no apparent distress Skin: warm Respiratory: bilateral CTA Heart: S1S2 Abdomen: soft, bowel sounds present Genitourinary: bladder flat Extremities: pulses present Neurology: alert Musculoskeletal: low back pain Assessment Assessment IMP UTI BOBBY-IMPROVED CKD STAGE 3B TO 4-CR OF 1.5 ANEMIA OF CKD PLAN BEATRICE OP NEEDED ANTIBIOTICS WILL FOLLOW LORRIE HCAVIS MD Oct 19, 2019 11:42
[2019-10-19 15:11] VITALS: BP 117/39
[2019-10-19] MEDS: cefTRIAXone IV Push 1 GM VIAL. IVP SCH (15:23)
[2019-10-19 19:00] VITALS: BP 115/47
[2019-10-19] MEDS: CEFDINIR 300 MG CAPSULE PO SCH (21:13)
[2019-10-19] MEDS: ATORVASTATIN CALCIUM 40 MG TABLET. PO SCH (21:13)
[2019-10-19 23:00] VITALS: BP 135/50
[2019-10-20 03:00] VITALS: BP 146/57
[2019-10-20] MEDS: PANTOPRAZOLE 40 MG TABLET.DR. PO SCH (06:53)
[2019-10-20 07:29] VITALS: BP 137/39
[2019-10-20 07:29] LABS: CALCIUM 8.1 mg/dL (8.5-10.1); CREATININE 1.6 mg/dL (0.6-1.0); GFR 31.2; POTASSIUM 4.1 mmol/L (3.5-5.1)
[2019-10-20 07:38] LABS: PROTHROMBIN TIME PATIENT 15.7 SEC (11.7-14.0)
[2019-10-20] MEDS: FERROUS SULFATE 325 MG TABLET. PO SCH ×2 (08:10→18:17)
[2019-10-20] MEDS: LACTOBACILLUS RHAMNOSUS GG 1 CAPSULE. PO SCH ×2 (08:10→20:51)
[2019-10-20] MEDS: CEFDINIR 300 MG CAPSULE PO SCH ×2 (08:10→20:51)
[2019-10-20] MEDS: NYSTATIN TOPICAL POWDER 15GM BOTTLE. TP SCH ×4 (08:11→20:52)
--- NOTE | 2019-10-20 11:09 | PDOC ---
Subjective: Subjective: No GI complaints, might DC today. Objective: Vital Signs: Vital Signs Date Time Temp Pulse Resp B/P (MAP) Pulse Ox O2 Delivery O2 Flow Rate FiO2 10/20/19 08:10 66 137/39 10/20/19 08:00 Room Air 10/20/19 07:29 98.2 20 99 98.2 Labs: Laboratory Tests Test 10/19/19 12:19 10/19/19 20:26 10/20/19 05:47 10/20/19 07:12 Glucose (Fingerstick) 180 mg/dL 187 mg/dL 146 mg/dL Prothrombin Time 15.7 SEC Prothromb Time International Ratio 1.3 Sodium Level 141 mmol/L Potassium Level 4.1 mmol/L Chloride Level 109 mmol/L Carbon Dioxide Level 25 mmol/L Anion Gap 7 Blood Urea Nitrogen 27 mg/dL Creatinine 1.6 mg/dL Estimated GFR (Cockcroft-Gault) 31.2 Glucose Level 149 mg/dL Calcium Level 8.1 mg/dL BLOOD CULTURE Final NO GROWTH AFTER 5 DAYS PE: GEN: NAD, in recliner LUNGS: CTAB HEART: RRR ABD: NABS, S/ND/NT NEURO/PSYCH: A & O 3 A/P: Chronic GIDEON/ACD - iron restarted; past scopes per consult note H/o A Fib, PE, CKD - on Warfarin -- DC per primary. Follow-up w/ GI if anemia worsens, etc. Justicifation of Admission Dx: Justifications for Admission: Justification of Admission Dx: Yes Acute Renal Failure: RF Can't Be Managed Outpt Chronic Renal Failure: Renail Failure MARIS RYDER Oct 20, 2019 11:09
--- NOTE | 2019-10-20 11:23 | PDOC ---
Renal-Progress Notes Subjective Notes Notes NO NEW COMPLAINTS History of Present Illness Hx of present illness NO CHANGE Vitals Vitals Vital Signs Date Time Temp Pulse Resp B/P (MAP) Pulse Ox O2 Delivery O2 Flow Rate FiO2 10/20/19 08:10 66 137/39 10/20/19 08:00 Room Air 10/20/19 07:29 98.2 20 99 98.2 Weight Weight [ ] I.O. Intake and Output Intake and Output 10/20/19 07:00 Intake Total 930 ml Output Total 400 ml Balance 530 ml Intake Oral 930 ml Output Urine Total 400 ml # Voids 3 Labs Labs Laboratory Tests Test 10/19/19 12:19 10/19/19 20:26 10/20/19 05:47 10/20/19 07:12 Glucose (Fingerstick) 180 mg/dL (70-99) 187 mg/dL (70-99) 146 mg/dL (70-99) Prothrombin Time 15.7 SEC (11.7-14.0) Prothromb Time International Ratio 1.3 (0.8-1.1) Sodium Level 141 mmol/L (136-145) Potassium Level 4.1 mmol/L (3.5-5.1) Chloride Level 109 mmol/L (98-107) Carbon Dioxide Level 25 mmol/L (21-32) Anion Gap 7 (6-14) Blood Urea Nitrogen 27 mg/dL (7-20) Creatinine 1.6 mg/dL (0.6-1.0) Estimated GFR (Cockcroft-Gault) 31.2 Glucose Level 149 mg/dL (70-99) Calcium Level 8.1 mg/dL (8.5-10.1) Micro Micro Microbiology 10/15/19 Blood Culture - Preliminary, Resulted NO GROWTH AFTER 4 DAYS 10/14/19 Urine Culture - Final, Complete Review of Systems Constitutional: yes: weakness, alert Ears/Nose/Throat: Yes: no symptom reported Eyes: Yes: no symptom reported Pulmonary: Yes no symptom reported Cardiovascular: Yes no symptom reported Gastrointestional: Yes: no symptom reported Genitourinary: Yes: no symptom reported Musculoskeletal: Yes: no symptom reported Skin: Yes no symptom reported Physical Exam General Appearance: no apparent distress Skin: warm Respiratory: bilateral CTA Heart: S1S2 Abdomen: soft, bowel sounds present Genitourinary: bladder flat Extremities: pulses present Neurology: alert Musculoskeletal: low back pain Assessment Assessment IMP UTI BOBBY-IMPROVED/RESOLVED CKD STAGE 3B TO 4-CR OF 1.6 ANEMIA OF CKD PLAN BEATRICE OP NEEDED ANTIBIOTICS WILL FOLLOW LORRIE CHAVIS MD Oct 20, 2019 11:23
[2019-10-20 11:36] VITALS: BP 131/47
[2019-10-20] MEDS: ACETAMINOPHEN 325 MG TABLET. PO PRN (14:39)
[2019-10-20 15:21] VITALS: BP 126/58
[2019-10-20] MEDS ORDERED: WARFARIN 3 MG TABLET. PO ONE (16:00)
--- NOTE | 2019-10-20 17:35 | PDOC ---
PROGRESS NOTES Chief Complaint Chief Complaint VTE Prophylaxis Ordered VTE Prophylaxis Devices: Yes VTE Pharmacological Prophylaxi: Yes IMPRESSION Assessment/Plan Impression: UTI (urinary tract infection) MORBID OBESITY Acute renal failure DEHYDRATION Iron deficiency anemia CHRONIC BLOOD LOSS ANEMIA History of A. fib and PE on chronic anticoagulation with warfarin Subtherapeutic INR plan Restarted warfarin Empiric antibiotic Hold allopurinol and losartan due to renal dysfunction nephrology consult noted and recommendations greatly appreciated follow renal fx closely History of Present Illness History of Present Illness SEEN IN ER WITH HYPOGLYCEMIA patient has chronic left hip pain was admitted, had rehab now pain is increasing again has bilateral foot burning pain denies medications for this. no fever, no cough. no chest pain. NOTES little dizzy when she stood up so gave tube oral glucose came up from 59 to 85. ate breakfast at six am. used insulin at 5 am. insulin used sliding scale at meals normally. 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 [] HENT: Normocephalic, atraumatic, bilateral external ears normal, oropharynx moist, no oral exudates, nose normal. [] Eyes: PERRLA, EOMI, conjunctiva normal, no discharge. [] Neck: Normal range of motion, no tenderness, supple, no stridor. [] Cardiovascular:Heart rate regular rhythm, no murmur [] Lungs & Thorax: Bilateral breath sounds clear to auscultation [] Abdomen: Bowel sounds normal, soft, no tenderness, no masses, no pulsatile masses. [] Skin: Warm, dry, no erythema, no rash. [] Back: No tenderness, no CVA tenderness. [] Extremities: No tenderness, no cyanosis, no clubbing, ROM intact, no edema. [] Neurologic: Alert and oriented X 3, normal motor function, normal sensory function, no focal deficits noted. [] Psychologic: Affect normal, judgement normal, mood normal. [] General: Alert, Oriented X3, Cooperative, No acute distress HEENT: Atraumatic, PERRLA, EOMI, Mucous membr. moist/pink Heart: RRR, no thrills Breasts: Not examined Abdomen: Soft Rectal Exam: not examined Extremities: No cyanosis Neuro: Normal speech, Strength at 5/5 X4 ext, Sensation intact, Cranial nerves 3-12 NL Psych/Mental Status: Mental status NL, Mood NL General: Alert, Oriented X3, Cooperative, No acute distress Heart: Regular rate, Normal S1, Normal S2, No murmurs Lungs: Clear Abdomen: Normal bowel sounds, Soft, No tenderness Extremities: No clubbing, No cyanosis, No edema Skin: No significant lesion Labs LABS Laboratory Tests Test 10/19/19 20:26 10/20/19 05:47 10/20/19 07:12 10/20/19 11:24 Glucose (Fingerstick) 187 mg/dL (70-99) 146 mg/dL (70-99) 184 mg/dL (70-99) Prothrombin Time 15.7 SEC (11.7-14.0) Prothromb Time International Ratio 1.3 (0.8-1.1) Sodium Level 141 mmol/L (136-145) Potassium Level 4.1 mmol/L (3.5-5.1) Chloride Level 109 mmol/L (98-107) Carbon Dioxide Level 25 mmol/L (21-32) Anion Gap 7 (6-14) Blood Urea Nitrogen 27 mg/dL (7-20) Creatinine 1.6 mg/dL (0.6-1.0) Estimated GFR (Cockcroft-Gault) 31.2 Glucose Level 149 mg/dL (70-99) Calcium Level 8.1 mg/dL (8.5-10.1) Test 10/20/19 16:42 Glucose (Fingerstick) 171 mg/dL (70-99) Review of Systems Review of Systems Pertinent as per HPI otherwise 14 point review of system is negative Assessment and Plan Assessmemt and Plan Problems Medical Problems: (1) Acute renal failure Status: Acute Comment Review of Relevant I have reviewed the following items edis (where applicable) has been applied. Labs Laboratory Tests Test 10/18/19 20:29 10/19/19 06:10 10/19/19 06:16 10/19/19 07:40 Glucose (Fingerstick) 171 mg/dL (70-99) 140 mg/dL (70-99) Sodium Level 141 mmol/L (136-145) Potassium Level 4.3 mmol/L (3.5-5.1) Chloride Level 108 mmol/L (98-107) Carbon Dioxide Level 25 mmol/L (21-32) Anion Gap 8 (6-14) Blood Urea Nitrogen 26 mg/dL (7-20) Creatinine 1.5 mg/dL (0.6-1.0) Estimated GFR (Cockcroft-Gault) 33.6 Glucose Level 160 mg/dL (70-99) Calcium Level 8.3 mg/dL (8.5-10.1) Prothrombin Time 14.6 SEC (11.7-14.0) Prothromb Time International Ratio 1.2 (0.8-1.1) Test 10/19/19 12:19 10/19/19 20:26 10/20/19 05:47 10/20/19 07:12 Glucose (Fingerstick) 180 mg/dL (70-99) 187 mg/dL (70-99) 146 mg/dL (70-99) Prothrombin Time 15.7 SEC (11.7-14.0) Prothromb Time International Ratio 1.3 (0.8-1.1) Sodium Level 141 mmol/L (136-145) Potassium Level 4.1 mmol/L (3.5-5.1) Chloride Level 109 mmol/L (98-107) Carbon Dioxide Level 25 mmol/L (21-32) Anion Gap 7 (6-14) Blood Urea Nitrogen 27 mg/dL (7-20) Creatinine 1.6 mg/dL (0.6-1.0) Estimated GFR (Cockcroft-Gault) 31.2 Glucose Level 149 mg/dL (70-99) Calcium Level 8.1 mg/dL (8.5-10.1) Test 10/20/19 11:24 10/20/19 16:42 Glucose (Fingerstick) 184 mg/dL (70-99) 171 mg/dL (70-99) Laboratory Tests Test 10/19/19 20:26 10/20/19 05:47 10/20/19 07:12 10/20/19 11:24 Glucose (Fingerstick) 187 mg/dL (70-99) 146 mg/dL (70-99) 184 mg/dL (70-99) Prothrombin Time 15.7 SEC (11.7-14.0) Prothromb Time International Ratio 1.3 (0.8-1.1) Sodium Level 141 mmol/L (136-145) Potassium Level 4.1 mmol/L (3.5-5.1) Chloride Level 109 mmol/L (98-107) Carbon Dioxide Level 25 mmol/L (21-32) Anion Gap 7 (6-14) Blood Urea Nitrogen 27 mg/dL (7-20) Creatinine 1.6 mg/dL (0.6-1.0) Estimated GFR (Cockcroft-Gault) 31.2 Glucose Level 149 mg/dL (70-99) Calcium Level 8.1 mg/dL (8.5-10.1) Test 10/20/19 16:42 Glucose (Fingerstick) 171 mg/dL (70-99) Microbiology 10/15/19 Blood Culture - Final, Complete NO GROWTH AFTER 5 DAYS 10/14/19 Urine Culture - Final, Complete Medications Current Medications Sodium Chloride 500 ml @ 500 mls/hr 1X ONCE IV Last administered on 10/14/19at 12:49; Start 10/14/19 at 12:30; Stop 10/14/19 at 13:29; Status DC Gabapentin (Neurontin) 100 mg 1X STAT PO Last administered on 10/14/19at 12:49; Start 10/14/19 at 12:29; Stop 10/14/19 at 12:31; Status DC Acetaminophen/ Hydrocodone Bitart (Lortab 5/325) 1 tab 1X ONCE PO Last administered on 10/14/19at 12:49; Start 10/14/19 at 12:30; Stop 10/14/19 at 12:33; Status DC Ondansetron HCl (Zofran Odt) 4 mg 1X ONCE PO Last administered on 10/14/19at 12:49; Start 10/14/19 at 12:30; Stop 10/14/19 at 12:33; Status DC Sodium Chloride 1,000 ml @ 75 mls/hr [id number] IV Last administered on 10/15/19at 03:19; Start 10/14/19 at 14:00; Stop 10/15/19 at 13:59; Status DC Ceftriaxone Sodium (Rocephin) 1 gm 1X ONCE IVP Last administered on 10/14/19at 14:23; Start 10/14/19 at 14:00; Stop 10/14/19 at 14:01; Status DC Ceftriaxone Sodium (Rocephin) 1 gm Q24H IVP Last administered on 10/19/19at 15:23; Start 10/15/19 at 14:00; Stop 10/19/19 at 18:00; Status DC Sodium Chloride (Normal Saline Flush) 3 ml QSHIFT PRN IV AFTER MEDS AND BLOOD DRAWS; Start 10/14/19 at 20:15 Ondansetron HCl (Zofran) 4 mg PRN Q4HRS PRN IV NAUSEA/VOMITING; Start 10/14/19 at 20:15 Acetaminophen (Tylenol) 650 mg PRN Q4HRS PRN PO TEMP OVER 100.4F; Start 10/14/19 at 20:15; Stop 10/14/19 at 20:26; Status DC Al Hydroxide/Mg Hydroxide (Mylanta Plus Xs) 30 ml PRN DAILY PRN PO HEARTBURN / GAS; Start 10/14/19 at 20:15 Sodium Monofluorophosphate (Fleet Adult) 133 ml PRN DAILY PRN PA CONSTIPATION; Start 10/14/19 at 20:15 Docusate Sodium (Colace) 100 mg PRN BID PRN PO HARD STOOLS Last administered on 10/18/19at 20:48; Start 10/14/19 at 20:15 Albuterol Sulfate (Ventolin Neb Soln) 2.5 mg PRN Q4HRS PRN NEB SHORTNESS OF BREATH; Start 10/14/19 at 20:15 Guaifenesin (Robitussin) 200 mg PRN Q4HRS PRN PO COUGH; Start 10/14/19 at 20:15 Enoxaparin Sodium (Lovenox 30mg Syringe) 30 mg Q24H SQ Last administered on 10/15/19at 08:25; Start 10/15/19 at 09:00; Stop 10/15/19 at 13:49; Status DC Acetaminophen (Tylenol) 325 mg PRN QID PRN PO PAIN MILD; Start 10/14/19 at 20:15 Atorvastatin Calcium (Lipitor) 40 mg QHS PO Last administered on 10/19/19 21:13; Start 10/14/19 at 21:00 Diltiazem HCl (Cardizem 24hr Cd) 120 mg DAILY PO Last administered on 10/20/19at 08:10; Start 10/15/19 at 09:00 Ergocalciferol (Vitamin D2) 50,000 unit WEEKLY PO ; Start 10/22/19 at 09:00 Pantoprazole Sodium (Protonix) 40 mg DAILY07 PO Last administered on 10/20/19 06:53; Start 10/15/19 at 07:00 Nystatin (Nystop) 1 melissa QID TP Last administered on 10/20/19 08:11; Start 10/14/19 at 21:00 Acetaminophen (Tylenol) 650 mg PRN QID PRN PO PAIN MODERATE Last administered on 10/20/19at 14:39; Start 10/14/19 at 20:30 Lactobacillus Rhamnosus (Culturelle) 1 cap BID PO Last administered on 10/20/19at 08:10; Start 10/15/19 at 21:00 Enoxaparin Sodium (Lovenox 40mg Syringe) 40 mg Q12H SQ Last administered on 10/18/19 08:18; Start 10/15/19 at 21:00; Stop 10/18/19 at 12:07; Status DC Ferrous Sulfate (Feosol) 325 mg BIDWMEALS PO Last administered on 10/20/19at 08:10; Start 10/18/19 at 17:00 Polyethylene Glycol (miraLAX PACKET) 17 gm PRN DAILY PRN PO CONSTIPATION Last administered on 10/18/19at 20:48; Start 10/18/19 at 11:30 Warfarin Sodium (Coumadin) 6 mg 1X WARF ONCE PO Last administered on 10/18/19 16:51; Start 10/18/19 at 16:00; Stop 10/18/19 at 16:01; Status DC Warfarin Sodium (Coumadin Per Physician) 1 each PRN DAILY PRN MC SEE COMMENTS; Start 10/18/19 at 12:15; Stop 10/20/19 at 12:35; Status DC Cefdinir (Omnicef) 300 mg BID PO Last administered on 10/20/19at 08:10; Start 10/19/19 at 21:00 Warfarin Sodium (Coumadin Per Pharmacy) 1 each PRN DAILY PRN MC SEE COMMENTS Last administered on 10/20/19at 12:37; Start 10/20/19 at 12:45 Warfarin Sodium (Coumadin) 6 mg 1X WARF ONCE PO ; Start 10/20/19 at 16:00; Stop 10/20/19 at 16:01; Status DC Active Scripts Active Tylenol (Acetaminophen) 325 Mg Tablet 1-2 Tab PO QID PRN Lantus (Insulin Glargine,Hum.rec.anlog) 100 Unit/1 Ml Vial 20 Unit SQ BID 30 Days Cozaar (Losartan Potassium) 25 Mg Tablet 25 Mg PO DAILY Diltiazem 24HR Cd (Diltiazem Hcl) 120 Mg Cap.er.24h 120 Mg PO DAILY Reported Furosemide 40 Mg Tablet 1 Tab PO DAILY Vitamin D2 (Ergocalciferol (Vitamin D2)) 50,000 Unit Capsule 1 Cap PO WEEKLY Pantoprazole Sodium (Pantoprazole Sodium) 40 Mg Tablet.dr 1 Tab PO DAILY Atorvastatin Calcium 40 Mg Tablet 1 Tab PO QHS Allopurinol 300 Mg Tablet 1 Tab PO DAILY Vitals/I & O Vital Sign - Last 24 Hours 10/19/19 10/19/19 10/19/19 10/20/19 19:00 20:00 23:00 03:00 Temp 98.0 98.6 98.0 98.0 98.6 98.0 Pulse 72 77 66 Resp 17 18 18 B/P (MAP) 115/47 (69) 135/50 (78) 146/57 (86) Pulse Ox 96 98 98 O2 Delivery Room Air Room Air Room Air Room Air 10/20/19 10/20/19 10/20/19 10/20/19 07:29 08:00 08:10 11:36 Temp 98.2 98.7 98.2 98.7 Pulse 66 66 65 Resp 20 18 B/P (MAP) 137/39 (71) 137/39 131/47 (75) Pulse Ox 99 99 O2 Delivery Room Air Room Air Room Air 10/20/19 15:21 Temp 97.9 97.9 Pulse 75 Resp 18 B/P (MAP) 126/58 (80) Pulse Ox 99 O2 Delivery Room Air Intake and Output 10/19/19 10/19/1910/19/20 15:00 23:00 07:00 Intake Total 530 ml 400 ml 0 ml Output Total 400 ml Balance 530 ml 400 ml -400 ml Justicifation of Admission Dx: Justifications for Admission: Justification of Admission Dx: Yes Acute Renal Failure: RF Can't Be Managed Outpt Chronic Renal Failure: Renail Failure JASON TILLEY MD Oct 20, 2019 17:35
[2019-10-20 19:00] VITALS: BP 116/36
[2019-10-20] MEDS: ATORVASTATIN CALCIUM 40 MG TABLET. PO SCH (20:52)
[2019-10-20] MEDS: POLYETHYLENE GLYCOL 3350 17 GM PACKET. PO PRN (20:56)
[2019-10-20 23:00] VITALS: BP 129/36
[2019-10-21 03:00] VITALS: BP 122/40
[2019-10-21] MEDS: PANTOPRAZOLE 40 MG TABLET.DR. PO SCH (05:47)
[2019-10-21 07:00] VITALS: BP 137/43
[2019-10-21 07:45] LABS: CREATININE 1.6 mg/dL (0.6-1.0); GFR 31.2; POTASSIUM 4.9 mmol/L (3.5-5.1)
[2019-10-21 08:39] VITALS: BP 137/43
[2019-10-21] MEDS: FERROUS SULFATE 325 MG TABLET. PO SCH (08:39)
[2019-10-21] MEDS: CEFDINIR 300 MG CAPSULE PO SCH (08:39)
[2019-10-21] MEDS: NYSTATIN TOPICAL POWDER 15GM BOTTLE. TP SCH (08:39)
[2019-10-21] MEDS: LACTOBACILLUS RHAMNOSUS GG 1 CAPSULE. PO SCH (08:39)
[2019-10-21] MEDS ORDERED: LACT1CAP19 PO (09:43)
[2019-10-21] MEDS ORDERED: NYST60PO TP (09:43)
[2019-10-21] MEDS ORDERED: FERR325T72 PO (09:43)
--- NOTE | 2019-10-21 10:38 | SNU/HH DC ---
DISCHARGE ORDERS DISCHARGE INFORMATION: DISCHARGE DATE: Oct 21, 2019 FINAL DIAGNOSIS Problems Medical Problems: (1) Acute renal failure Status: Acute CONDITION ON DISCHARGE: Stable CODE STATUS: Code Status: Full GROUP HOME: SNF STAY <30 DAYS: Yes POST DISCHARGE ORDERS: ACTIVITY ORDERS: Activity as tolerated WEIGHT BEARING STATUS: As tolerated DIET AFTER DISCHARGE: ADA CHECKS AFTER DISCHARGE: CHECKS AFTER DISCHARGE: Check blood press - daily, Check blood sugar, ac/hs, Check your Temp as needed FOLLOW-UP: ADDITIONAL FOLLOW-UP: Primary Care Physician within 1 week. TREATMENT/EQUIPMENT ORDERS: ADAPTIVE EQUIPMENT NEEDED: None Physical Therapy For: Evalulation/Treatment Occupational Therapy For: Evaluation/Treatment DISCHARGE MEDICATIONS: Home Meds Active Scripts Nystatin (NYSTOP) 60 Gm Powder, 1 VU TP QID for yeast infection for 15 Days, #1 MISC Prov:JASON TILLEY MD 10/21/19 Lactobacillus Rhamnosus Gg (CULTURELLE) 1 Each Cap.sprink, 1 CAP PO BID for probiotic for 30 Days, #60 CAP Prov:JASON TILLEY MD 10/21/19 Ferrous Sulfate (FEOSOL) 325 Mg Tablet, 325 MG PO BIDWMEALS for iron deficiency anemia for 30 Days, #60 TAB Prov:JASON TILLEY MD 10/21/19 Acetaminophen (TYLENOL) 325 Mg Tablet, 1-2 TAB PO QID PRN for PAIN, #60 TAB Prov:LILI SCHAEFER MD 09/09/19 Insulin Glargine,Hum.rec.anlog (LANTUS) 100 Unit/1 Ml Vial, 20 UNIT SQ BID for DM2 for 30 Days, #1 EACH Prov:HARPREET ZAMORA MD 12/28/18 Losartan Potassium (COZAAR ) 25 Mg Tablet, 25 MG PO DAILY, #30 TAB Prov:HARPREET ZAMORA MD 04/04/16 Diltiazem Hcl (DILTIAZEM 24HR CD) 120 Mg Cap.er.24h, 120 MG PO DAILY, #30 TAB Prov:HARPREET ZAMORA MD 04/04/16 Reported Medications Furosemide (FUROSEMIDE) 40 Mg Tablet, 1 TAB PO DAILY for edema, #30 TAB 5 Refills 10/14/19 Ergocalciferol (Vitamin D2) (VITAMIN D2) 50,000 Unit Capsule, 1 CAP PO WEEKLY, #4 CAP 5 Refills 3/24/17 Pantoprazole Sodium (PANTOPRAZOLE SODIUM ) 40 Mg Tablet.dr, 1 TAB PO DAILY, #30 TAB 3 Refills 04/01/16 Atorvastatin Calcium (ATORVASTATIN CALCIUM) 40 Mg Tablet, 1 TAB PO QHS, #90 TAB 3 Refills 04/01/16 Allopurinol (ALLOPURINOL) 300 Mg Tablet, 1 TAB PO DAILY, #30 TAB 5 Refills 04/01/16 JASON TILLEY MD Oct 21, 2019 10:38
--- NOTE | 2019-10-21 11:13 | PDOC ---
Subjective: Subjective: No GI complaints. Objective: Objective: D/w Dr. Lutz re: restarting Warfarin, communicated w/ Dr. Mittal as well. Vital Signs: Vital Signs Date Time Temp Pulse Resp B/P (MAP) Pulse Ox O2 Delivery O2 Flow Rate FiO2 10/21/19 08:39 79 137/43 10/21/19 07:46 Room Air 10/21/19 07:00 98.4 18 99 98.4 Labs: Laboratory Tests Test 10/20/19 11:24 10/20/19 16:42 10/20/19 20:32 10/21/19 07:12 Glucose (Fingerstick) 184 mg/dL (70-99) 171 mg/dL (70-99) 165 mg/dL (70-99) 156 mg/dL (70-99) PE: GEN: NAD LUNGS: CTAB HEART: RRR ABD: S/ND/NT NEURO/PSYCH: A & O 3 A/P: Chronic GIDEON/ACD - iron restarted; past scopes per consult note H/o A Fib, PE, CKD - on Warfarin -- DC per primary. Okay to resume Warfarin, continue iron. Follow-up w/ GI PRN. Justicifation of Admission Dx: Justifications for Admission: Justification of Admission Dx: Yes Acute Renal Failure: RF Can't Be Managed Outpt Chronic Renal Failure: Renail Failure MARIS RYDER Oct 21, 2019 11:13
--- NOTE | 2019-10-21 11:26 | NUR ---
Pharmacy Warfarin Dosing Note S:Pharmacy consulted to assist with anticoagulation therapy started with target INR: 2 -3 O:MERRICK ARRIAGA is a 79 year old F with Atrial Fibrillation DVT/PE LABS: Last INR: 1.2 Last HGB: 8.4 Last HCT: 26.6 Last PLT: 376 Last dose of 6 mg given on 10/20/19 at 1600 Previous Regimen: Vitamin K given: Drug Interaction Changes: Ongoing Drug Interactions: A:INR of 1.2 is below desired range. Target range for this patient is: 2 -3 P: Warfarin dose: 7.5 mg Today at 1600 Bridge Therapy: None Next INR due 10/22/19. Pharmacy anticoagulation service will continue to follow. MIGUELINA SMITH RPH, 10/21/19 [id number]
--- NOTE | 2019-10-21 11:30 | NUR ---
Discharge Note: MERRICK ARRIAGA [address] Discharge instructions and discharge home medications reviewed with Other facility and a copy given. All questions have been answered and understanding verbalized. Report given to ROSA ISELA Bailey at [facility]. The following instructions and handouts were given: information about medications, diet, labs/imaging tests, history, etc. Discontinued lines and drains: IV line in left forearm removed, catheter tip intact. Patient discharged to [facility] with [facility] transport, wheelchair used for mobility to discharge vehicle.
--- NOTE | 2019-10-21 15:08 | PDOC3 ---
Discharge Summary Visit Information Date of Admission: Oct 14, 2019 Date of Discharge: Oct 21, 2019 Admitting Diagnosis Comment: UTI (urinary tract infection) MORBID OBESITY Acute renal failure DEHYDRATION normocytic anemia Final Diagnosis Encephaloptahty which had metabolic etiology given her hypoglycmiea UTI (urinary tract infection) ruled out MORBID OBESITY Acute renal failure DEHYDRATION Iron deficiency anemia CHRONIC BLOOD LOSS ANEMIA History of A. fib and PE on chronic anticoagulation with warfarin Subtherapeutic INR Brief Hospital Course Allergies Allergies Coded Allergies Type Severity Reaction Last Updated Verified No Known Drug Allergies 10/24/17 No Vital Signs Vital Signs Date Time Temp Pulse Resp B/P (MAP) Pulse Ox O2 Delivery O2 Flow Rate FiO2 10/21/19 08:39 79 137/43 10/21/19 07:46 Room Air 10/21/19 07:00 98.4 18 99 98.4 Lab Results Laboratory Tests Test 10/19/19 20:26 10/20/19 05:47 10/20/19 07:12 10/20/19 11:24 Glucose (Fingerstick) 187 mg/dL (70-99) 146 mg/dL (70-99) 184 mg/dL (70-99) Prothrombin Time 15.7 SEC (11.7-14.0) Prothromb Time International Ratio 1.3 (0.8-1.1) Sodium Level 141 mmol/L (136-145) Potassium Level 4.1 mmol/L (3.5-5.1) Chloride Level 109 mmol/L (98-107) Carbon Dioxide Level 25 mmol/L (21-32) Anion Gap 7 (6-14) Blood Urea Nitrogen 27 mg/dL (7-20) Creatinine 1.6 mg/dL (0.6-1.0) Estimated GFR (Cockcroft-Gault) 31.2 Glucose Level 149 mg/dL (70-99) Calcium Level 8.1 mg/dL (8.5-10.1) Test 10/20/19 16:42 10/20/19 20:32 10/21/19 06:28 10/21/19 07:12 Glucose (Fingerstick) 171 mg/dL (70-99) 165 mg/dL (70-99) 156 mg/dL (70-99) Prothrombin Time 15.0 SEC (11.7-14.0) Prothromb Time International Ratio 1.2 (0.8-1.1) Sodium Level 141 mmol/L (136-145) Potassium Level 4.9 mmol/L (3.5-5.1) Chloride Level 108 mmol/L (98-107) Carbon Dioxide Level 25 mmol/L (21-32) Anion Gap 8 (6-14) Blood Urea Nitrogen 29 mg/dL (7-20) Creatinine 1.6 mg/dL (0.6-1.0) Estimated GFR (Cockcroft-Gault) 31.2 Glucose Level 160 mg/dL (70-99) Calcium Level 8.0 mg/dL (8.5-10.1) Laboratory Tests Test 10/20/19 16:42 10/20/19 20:32 10/21/19 06:28 10/21/19 07:12 Glucose (Fingerstick) 171 mg/dL (70-99) 165 mg/dL (70-99) 156 mg/dL (70-99) Prothrombin Time 15.0 SEC (11.7-14.0) Prothromb Time International Ratio 1.2 (0.8-1.1) Sodium Level 141 mmol/L (136-145) Potassium Level 4.9 mmol/L (3.5-5.1) Chloride Level 108 mmol/L (98-107) Carbon Dioxide Level 25 mmol/L (21-32) Anion Gap 8 (6-14) Blood Urea Nitrogen 29 mg/dL (7-20) Creatinine 1.6 mg/dL (0.6-1.0) Estimated GFR (Cockcroft-Gault) 31.2 Glucose Level 160 mg/dL (70-99) Calcium Level 8.0 mg/dL (8.5-10.1) Brief Hospital Course History of Present Illness SEEN IN ER WITH HYPOGLYCEMIA patient has chronic left hip pain was admitted, had rehab now pain is increasing again has bilateral foot burning pain denies medications for this. no fever, no cough. no chest pain. NOTES little dizzy when she stood up so gave tube oral glucose came up from 59 to 85. ate breakfast at six am. used insulin at 5 am. insulin used sliding scale at meals normally. 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 The patient had been placed on warfarin due to pulmonary embolism note was diagnosed greater than 3 years ago. 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 Richard had recommended against oral anticoagulation and placing an IVC filter given the risks of bleeding. Patient over the course of all this years had done well. The urinalysis was negative and urine culture was also reported with no growth, the patient was placed on iron supplementation and her warfarin was restarted while she was inpatient. She has subtherapeutic INR and this can be certainly followed up at [facility] on a daily basis. Patient was in good spirits to be discharged home no further recommendations from the nephrology standpoint of view either. She continues to have a chronic kidney disease. Her ARB was restarted, and this can be followed up in the outpatient setting by her primary care physician. No changes were made to her medications all of her concerns were addressed to the best of my abilities prior to discharge to [facility]. Patient in good spirits General: Alert, Oriented X3, Cooperative, No acute distress HEENT: Atraumatic, PERRLA, EOMI, Mucous membr. moist/pink Heart: RRR, no thrills Breasts: Not examined Abdomen: Soft Rectal Exam: not examined Extremities: No cyanosis Neuro: Normal speech, Strength at 5/5 X4 ext, Sensation intact, Cranial nerves 3-12 NL Psych/Mental Status: Mental status NL, Mood NL General: Alert, Oriented X3, Cooperative, No acute distress Heart: Regular rate, Normal S1, Normal S2, No murmurs Lungs: Clear Abdomen: Normal bowel sounds, Soft, No tenderness Extremities: No clubbing, No cyanosis, No edema Skin: No significant lesion Assessment Assessment IMAGING REPORT Signed PATIENT: MERRICK ARRIAGA AACCOUNT: [id number] : 1940 LOCATION: [address] [place] [address] AGE: 79 SEX: F EXAM STATUS: ADM IN ORD. PHYSICIAN: MARTY JACQUES MD REASON: BOBBY; RENAL US NOT ABD COMPLETE PER ROSA ISELA CHOW PROCEDURE: RENAL COMPLETE BILATERAL Exam: Ultrasound renal complete Indication: Acute kidney injury Technique: Real-time grayscale and color Doppler images of the kidneys were obtained by the department account associate. Comparisons: None FINDINGS: Right kidney measures 10.6 cm in length. No hydronephrosis. Left kidney measures 10.1 cm in length. No hydronephrosis. Bladder is distended and appears thin-walled. Bilateral ureteral jets are seen. Aorta and IVC are not well seen secondary to overlying bowel gas. IMPRESSION: No hydronephrosis. Electronically signed by: Kofi Alonzo MD (10/15/2019 8:33 PM) [id number] Discharge Information Condition at Discharge: Improved Follow Up: Weeks Disposition/Orders: D/C to Another Facility ([facility]) Scheduled Allopurinol (Allopurinol) 300 Mg Tablet, 1 TAB PO DAILY, #30 Ref 5 (Reported) Entered as Reported by: RADHA SIDHU on 04/01/16 1143 Last Action: HELD on 10/14/192005 by MARTY JACQUES MD Atorvastatin Calcium (Atorvastatin Calcium) 40 Mg Tablet, 1 TAB PO QHS, #90 Ref 3 (Reported) Entered as Reported by: RADHA SIDHU on 04/01/16 1143 Last Action: Continued on 10/14/192005 by MARTY JACQUES MD Diltiazem Hcl (Diltiazem 24HR Cd) 120 Mg Cap.er.24h, 120 MG PO DAILY, #30 Prescribed by: HARPREET ZAMORA on 04/04/16 1210 Last Action: Continued on 10/14/192005 by MARTY JACQUES MD Ergocalciferol (Vitamin D2) (Vitamin D2) 50,000 Unit Capsule, 1 CAP PO WEEKLY, #4 Ref 5 (Reported) Entered as Reported by: JOELLEN GARBER on 06/21/16 0712 Last Action: Continued on 10/14/192005 by MARTY JACQUES MD Ferrous Sulfate (Feosol) 325 Mg Tablet, 325 MG PO BIDWMEALS for iron deficiency anemia for 30 Days, #60 Prescribed by: JASON TILLEY MD on 10/21/19 0943 Furosemide (Furosemide) 40 Mg Tablet, 1 TAB PO DAILY for edema, #30 Ref 5 (Reported) Entered as Reported by: MARISEL JORGE RN on 10/14/19 1542 Last Action: HELD on 10/14/192005 by MARTY JACQUES MD Insulin Glargine,Hum.rec.anlog (Lantus) 100 Unit/1 Ml Vial, 20 UNIT SQ BID for DM2 for 30 Days, #1 Prescribed by: HARPREET ZAMORA on 12/28/18 0852 Last Action: HELD on 10/14/192005 by MARTY JACQUES MD Lactobacillus Rhamnosus Gg (Culturelle) 1 Each Cap.sprink, 1 CAP PO BID for probiotic for 30 Days, #60 Prescribed by: JASON TILLEY MD on 10/21/19 0943 Losartan Potassium (Cozaar ) 25 Mg Tablet, 25 MG PO DAILY, #30 Prescribed by: HARPREET ZAMORA on 04/04/16 1210 Last Action: HELD on 10/14/192005 by MARTY JACQUES MD Nystatin (Nystop) 60 Gm Powder, 1 VU TP QID for yeast infection for 15 Days, #1 Prescribed by: JASON TILLEY MD on 10/21/19 0943 Pantoprazole Sodium (Pantoprazole Sodium ) 40 Mg Tablet.dr, 1 TAB PO DAILY, #30 Ref 3 (Reported) Entered as Reported by: RADHA SIDHU on 04/01/16 1143 Last Action: Continued on 10/14/192005 by MARTY JACQUES MD Scheduled PRN Acetaminophen (Tylenol) 325 Mg Tablet, 1-2 TAB PO QID PRN for PAIN, #60 Prescribed by: LILI SCHAEFER on 09/09/19 0954 Last Action: Continued on 10/14/192005 by MARTY JACQUES MD Justicifation of Admission Dx: Justifications for Admission: Justification of Admission Dx: Yes Acute Renal Failure: RF Can't Be Managed Outpt Chronic Renal Failure: Renail Failure JASON TILLEY MD Oct 21, 2019 15:08
[2019-10-21] MEDS ORDERED: WARFARIN 7.5 MG TABLET. PO ONE (16:00)
[2019-10-22] MEDS ORDERED: ERGOCALCIFEROL (VITAMIN D2) 50,000 UNIT CAPSULE. PO SCH (09:00)
== END 2019-10-21 11:30 | DRG 682 ==
LOC: ER 12:04 → 4 NORTH 13:15
PROVIDERS: ADMIT Family Medicine; ATTEND Family Medicine
DX: N17.0 Acute kidney failure with tubular necrosis (principal); G93.41 Metabolic encephalopathy; Z68.41 Body mass index [BMI] 40.0-44.9, adult; E11.649 Type 2 diabetes mellitus with hypoglycemia without coma; D50.0 Iron deficiency anemia secondary to blood loss (chronic); D63.1 Anemia in chronic kidney disease; E11.22 Type 2 diabetes mellitus with diabetic chronic kidney disease; E11.319 Type 2 diabetes mellitus with unspecified diabetic retinopathy without macular edema; E66.01 Morbid (severe) obesity due to excess calories; E78.00 Pure hypercholesterolemia, unspecified; E86.0 Dehydration; E78.5 Hyperlipidemia, unspecified; G47.33 Obstructive sleep apnea (adult) (pediatric); G89.29 Other chronic pain; I12.9 Hypertensive chronic kidney disease with stage 1 through stage 4 chronic kidney disease, or unspecified chronic kidney disease; I48.91 Unspecified atrial fibrillation; K21.9 Gastro-esophageal reflux disease without esophagitis; Z20.828 Contact with and (suspected) exposure to other viral communicable diseases; M19.90 Unspecified osteoarthritis, unspecified site; N18.3 Chronic kidney disease, stage 3 (moderate); Z79.01 Long term (current) use of anticoagulants; Z82.49 Family history of ischemic heart disease and other diseases of the circulatory system; Z86.711 Personal history of pulmonary embolism; Z86.718 Personal history of other venous thrombosis and embolism; Z87.01 Personal history of pneumonia (recurrent); Z98.42 Cataract extraction status, left eye; Z98.41 Cataract extraction status, right eye; Z80.9 Family history of malignant neoplasm, unspecified
CPT/HCPCS: 36415; 71045; 76770; 80048; 80053; 81001; 82962; 83540; 83550; 83605; 85025; 85610; 87040; 87086; 87205; 94760; 96361; 96374; 99285; J0696; J1650; J7030; J7040; 97110-GP; 97116-GP; 97535-GO; G0378; U0003-CS

== ENCOUNTER 2020-12-18 20:22 | Emergency (ER) | payer MEDICARE ==
[~2020-12-18] VITALS: Ht 162.6 cm; Wt 116.0 kg
[~2020-12-18 20:22] MED LIST changes: +FERR325T72 PO; +LACT1CAP19 PO; +METH-562 PO; -METH750T2 PO; +NYST60PO TP; +TRAM-48 PO; +TRAM50TA PO
--- NOTE | 2020-12-18 21:02 | PHYS DOC ---
Past Medical History Past Medical History: A-Fib, Anemia, CHF, Diabetes-Type II, DVT, High Cho lesterol, Hypertension, Pneumonia, Renal Failure, Other Additional Past Medical Histor: PE,lymphedema,ACUTE RENAL FAILURE,ACUTE RESP FAILURE Past Surgical History: Tonsillectomy, Other Additional Past Surgical Histo: chest while infant/TUBES IN LUNGS Smoking Status: Never Smoker Alcohol Use: None Drug Use: None General Adult EDM: Chief Complaint: MECHANICAL FALL HPI: HPI: Patient is a 80 year old female presents for evaluation after fall. Patient uses a walker. States she was on the toilet got up to leave bathroom when her right knee gave out and she feel to the ground. Patient complains of right hip pain and right knee pain. No deformities on exam. Review of Systems: Review of Systems: Constitutional: Denies fever or chills. [] Eyes: Denies change in visual acuity. [] HENT: Denies nasal congestion or sore throat. [] Respiratory: Denies cough or shortness of breath. [] Cardiovascular: Denies chest pain or edema. [] GI: Denies abdominal pain, nausea, vomiting, bloody stools or diarrhea. [] : Denies dysuria. [] Musculoskeletal: Denies back pain or joint pain. [] Integument: Denies rash. [] Neurologic: Denies headache, focal weakness or sensory changes. [] Endocrine: Denies polyuria or polydipsia. [] Lymphatic: Denies swollen glands. [] Psychiatric: Denies depression or anxiety. [] Heart Score: C/O Chest Pain: N/A Risk Factors: Risk Factors: DM, Current or recent (<one month) smoker, HTN, HLP, family history of CAD, obesity. Risk Scores: Score 0 - 3: 2.5% MACE over next 6 weeks - Discharge Home Score 4 - 6: 20.3% MACE over next 6 weeks - Admit for Clinical Observation Score 7 - 10: 72.7% MACE over next 6 weeks - Early Invasive Strategies Allergies: Allergies: Allergies Coded Allergies Type Severity Reaction Last Updated Verified No Known Drug Allergies 10/24/17 No Physical Exam: PE: Constitutional: Well developed, well nourished, no acute distress, non-toxic appearance. [] HENT: Normocephalic, atraumatic, bilateral external ears normal, oropharynx moist, no oral exudates, nose normal. [] Eyes: PERRLA, EOMI, conjunctiva normal, no discharge. [] Neck: Normal range of motion, no tenderness, supple, no stridor. [] Cardiovascular:Heart rate regular rhythm, no murmur [] Lungs & Thorax: Bilateral breath sounds clear to auscultation [] Abdomen: Bowel sounds normal, soft, no tenderness, no masses, no pulsatile masses. [] Skin: Warm, dry, no erythema, no rash. [] Back: No tenderness, no CVA tenderness. [] Extremities: No tenderness, no cyanosis, no clubbing, ROM intact, no edema. [no deformity right or left lower extremity, no shortening of lower extremities] Neurologic: Alert and oriented X 3, normal motor function, normal sensory function, no focal deficits noted. [] Psychologic: Affect normal, judgement normal, mood normal. [] Current Patient Data: Vital Signs: Vital Signs Date Time Temp Pulse Resp B/P (MAP) Pulse Ox O2 Delivery O2 Flow Rate FiO2 12/18/20 20:36 99.5 100 16 157/74 (101) 99 Room Air 99.5 EKG: EKG: [] Radiology/Procedures: Radiology/Procedures: [] Impression: Xray right hip/knee no acute fractures Course & Med Decision Making: Course & Med Decision Making Pertinent Labs and Imaging studies reviewed. (See chart for details) [] Dragon Disclaimer: Dragon Disclaimer: This electronic medical record was generated, in whole or in part, using a voice recognition dictation system. Departure Departure Impression: Primary Impression: Fall Additional Impressions: Knee pain Hip pain Disposition: HOME / SELF CARE / HOMELESS Condition: STABLE Referrals: HARPREET ZAMORA MD (PCP) Patient Instructions: Hip Pain KRZYSZTOF GEORGE I DO Dec 18, 2020 21:02
--- NOTE | 2020-12-18 21:11 | RAD ---
Exam: Pelvis 1 view INDICATION: Fall, pain TECHNIQUE: Frontal view of the pelvis Comparisons: None FINDINGS: Diffuse osteopenia. Bone mineralization is normal. No acute or healed fractures. Joint spaces are wel l-maintained. IMPRESSION: No acute osseous abnormality Electronically signed by: Kofi Alonzo MD (12/18/2020 9:09 PM) CYNTHIA
--- NOTE | 2020-12-18 21:13 | RAD ---
Three-view right knee HISTORY: Pain status post fall AP lateral oblique views There is marked tricompartmental degenerative changes with marginal spurring of all 3 compartments. T here is no interruption of cortex suggestive fracture. There is a small effusion on the lateral view. IMPRESSION: 1. Marked tricompartmental degenerative changes consistent with osteoarthrosis. 2. Small joint effusion. 3. No fracture seen. Electronically signed by: Wang Miles III, MD (12/18/2020 9:10 PM) [facility]
[2020-12-19 00:13] VITALS: BP 185/81
== END 2020-12-19 00:15 | disposition home or self-care (01) ==
LOC: ER 20:22
DX: M25.561 Pain in right knee (principal); M25.551 Pain in right hip; G89.11 Acute pain due to trauma; E11.22 Type 2 diabetes mellitus with diabetic chronic kidney disease; I13.0 Hypertensive heart and chronic kidney disease with heart failure and stage 1 through stage 4 chronic kidney disease, or unspecified chronic kidney disease; N18.9 Chronic kidney disease, unspecified; I50.9 Heart failure, unspecified; I48.91 Unspecified atrial fibrillation; E78.00 Pure hypercholesterolemia, unspecified; W18.11XA Fall from or off toilet without subsequent striking against object, initial encounter; Y93.E8 Activity, other personal hygiene; Y92.091 Bathroom in other non-institutional residence as the place of occurrence of the external cause; Y99.8 Other external cause status
CPT/HCPCS: 72170; 73562; 99284

== ENCOUNTER → 2021-01-11 | Outpatient (CLI) | payer MEDICARE ==
[2020-12-27 15:00] VITALS: BP 158/68
[~2021-01-11] MED LIST changes: +ASPI-630 PO; +POLY17PO52 PO
--- NOTE | 2021-01-12 10:37 | CARD ---
MR#: [id number] Date of Study: 01/11/2021 Ordering Physician: MAURICIO ROMO, Referring Physician: MAURICIO ROMO, Tech: Yumiko Jeter, [facility] APPROVED REPORT EXAM: Two-dimensional and M-mode echocardiogram with Doppler and color Doppler. Other Information Quality : AverageHR: 90bpm INDICATION Congestive Heart Failure RISK FACTORS Hypertension Hyperlipidemia Diabetes 2D DIMENSIONS Left Atrium(2D)2.0 (1.6-4.0cm)IVSd1.0 (0.7-1.1cm) Aortic Root(2D)2.9 (2.0-3.7cm)LVDd5.0 (3.9-5.9cm) PWd1.1 (0.7-1.1cm)LVDs3.4 (2.5-4.0cm) FS (%) 31.3 %SV68.6 ml LVEF(%)58.9 (>50%) Aortic Valve AoV Peak Thomas.139.9cm/sAoV VTI32.2cm AO Peak GR.7.8mmHgLVOT Peak Thomas.108.5cm/s LVOT VTI 26.15cmAO Mean GR.4mmHg Mitral Valve MV E Cnbldmwy00.9cm/sMV DECEL CMGE649yo MV A Htiklflc038.2cm/sMV E Mean Gr.4mmHg MV JQP76rcB/A Ratio0.9 MVA (PHT)4.69cm2 TDI E/Lateral E'9.7E/Medial E'11.3 Pulmonary Valve PV Peak Sjabveej662.9cm/sPV Peak Grad.4mmHg Tricuspid Valve TR P. Niwfejgn114er/sRAP DJQUAECW0ojSi TR Peak Gr.02gfZoMNLQ46exFv Pulmonary Vein S1 Zhtvgznx99.1cm/sD2 Plsqebrm17.1cm/s PVa [id number] LEFT VENTRICLE The left ventricle is normal size. There is normal left ventricular wall thickness. The left ventricu lar systolic function is normal. The Ejection Fraction is 55-60%. There is normal LV segmental wall m otion. Transmitral Doppler flow pattern is Grade I-abnormal relaxation pattern. RIGHT VENTRICLE The right ventricle is normal size. There is normal right ventricular wall thickness. The right ventr icular systolic function is normal. ATRIA The left atrium size is normal. The right atrium size is normal. The interatrial septum is intact wit h no evidence for an atrial septal defect or patent foramen ovale as noted on 2-D or Doppler imaging. AORTIC VALVE The aortic valve is normal in structure and function. Doppler and Color Flow revealed trace aortic re gurgitation. There is no significant aortic valvular stenosis. Calculated aortic valve area is 2.54 c m2 with maximum pressure gradient of 9 mmHg and mean pressure gradient of 5 mmHg. MITRAL VALVE The mitral valve is normal in structure and function. There is no evidence of mitral valve prolapse. There is no mitral valve stenosis. Doppler and Color-flow revealed trace mitral regurgitation. TRICUSPID VALVE The tricuspid valve is normal in structure and function. Doppler and Color Flow revealed trace to mil d tricuspid regurgitation with an estimated PAP of 38 mmHg. There is no tricuspid valve stenosis. PULMONIC VALVE The pulmonary valve is normal in structure and function. Doppler and Color Flow revealed trace pulmon ic valvular regurgitation. GREAT VESSELS The aortic root is normal in size. The ascending aorta is normal in size. The IVC is normal in size a nd collapses >50% with inspiration. PERICARDIAL EFFUSION There is no evidence of significant pericardial effusion. Critical Notification Critical Value: No <Conclusion> The left ventricular systolic function is normal. The Ejection Fraction is 55-60%. There is normal LV segmental wall motion. Transmitral Doppler flow pattern is Grade I-abnormal relaxation pattern. Trace mitral regurgitation. Trace to mild tricuspid regurgitation with an estimated PAP of 38 mmHg. There is no evidence of significant pericardial effusion. Signed by : Basil Caldwell, Electronically Approved : 01/12/2021 10:36:42
== END ==
LOC: ECHO 13:04
PROVIDERS: ATTEND Internal Medicine Cardiovascular Disease
DX: I36.1 Nonrheumatic tricuspid (valve) insufficiency (principal); I50.9 Heart failure, unspecified
CPT/HCPCS: 93306

== ENCOUNTER 2021-04-05 16:01 | Inpatient (IN) | payer MEDICARE ==
[~2021-04-05] VITALS: Ht 162.6 cm; Wt 96.5 kg
[~2021-04-05 16:01] MED LIST changes: +AMLO-186 PO; +AMOX1TAB10 PO; +LINE600T12 PO
--- NOTE | 2021-04-05 16:13 | PHYS DOC ---
Past Medical History Past Medical History: A-Fib, Anemia, CHF, Diabetes-Type II, DVT, High Cho lesterol, Hypertension, Pneumonia, Renal Failure, UTI, Other Additional Past Medical Histor: PE,lymphedema,ACUTE RENAL FAILURE,ACUTE RESP FAILURE Past Surgical History: Tonsillectomy, Other Additional Past Surgical Histo: chest while /TUBES IN LUNGS Smoking Status: Never Smoker Alcohol Use: None Drug Use: None General Adult EDM: Chief Complaint: ABNORMAL LABS HPI: HPI: Patient is a 80-year-old female that presents today by [facility] from her nursing facility [facility]. Patient was brought today for evaluation of abnormal lab values that were drawn today. According to the EMS report her creatinine and bun are slowly increasing and they would like her evaluated for this. Patient was admitted to [facility] from February 21 through February, for UTI and renal failure. She had labs drawn on April 02 with a bun of 83 and a creatinine of 4.5, April 04 a bun of 86 and a creatinine of 4.9 and today April 05 her bun of 90 and a creatinine of 5.4, her potassium and all 3 of those days was 5.3. Patient does have a Navarro catheter in place and a tunneled [place] and her right chest wall. Patient did states she fell 1-2 nights ago out of the bed while she was being rolled side to side by the nursing staff. Denies loss of consciousness, said she has aches and pains and bruising from that incident. Patient denies neck pain or head pain. Review of Systems: Review of Systems: Constitutional: Denies fever or chills. [] Eyes: Denies change in visual acuity. [] HENT: Denies nasal congestion or sore throat. [] Respiratory: Denies cough or shortness of breath. [] Cardiovascular: Denies chest pain or edema. [] GI: Denies abdominal pain, nausea, vomiting, bloody stools or diarrhea. [] : Navarro catheter pain [] Musculoskeletal: Generalized aches and pains Integument: Denies rash. [] Neurologic: Denies headache, focal weakness or sensory changes. [] Endocrine: Denies polyuria or polydipsia. [] Lymphatic: Denies swollen glands. [] Psychiatric: Denies depression or anxiety. [] Heart Score: C/O Chest Pain: N/A Risk Factors: Risk Factors: DM, Current or recent (<one month) smoker, HTN, HLP, family history of CAD, obesity. Risk Scores: Score 0 - 3: 2.5% MACE over next 6 weeks - Discharge Home Score 4 - 6: 20.3% MACE over next 6 weeks - Admit for Clinical Observation Score 7 - 10: 72.7% MACE over next 6 weeks - Early Invasive Strategies Current Medications: Acetaminophen 325 mg as needed pain Aspirin 81 mg daily Atorvastatin 40 mg at bedtime Cholecalciferol 14803 units every friday Iron 325 mg take 1 tablet twice daily Furosemide 20 mg once daily MiraLAX 17 g by mouth once daily Hyoscyamine 0.125mg every 4 hours as needed for increased secretions Probiotic tablet 1 tablet daily Lantus 5 units at bedtime Linagliptin 5mg take one tablet daily Nystatin powder under breasts abdominal fold topical every day and night for redness Zofran 4 mg take 1 tablet every 12 hours as needed for nausea and vomiting Protonix 40 mg 1 tablet daily Senna-S 2 tablets every 12 hours as needed for constipation Flomax 0.4 mg take 1 tablet in the morning Allergies: Allergies: Allergies Coded Allergies Type Severity Reaction Last Updated Verified No Known Drug Allergies 10/24/17 No Physical Exam: PE: Constitutional: Obese nontoxic-appearing seen female in no acute distress HENT: Normocephalic, atraumatic, bilateral external ears normal, oropharynx moist, no oral exudates, nose normal. [] Eyes: PERRLA, EOMI, conjunctiva normal, no discharge. [] Neck: Normal range of motion, no tenderness, supple, no stridor. [] Cardiovascular:Heart rate regular rhythm, no murmur [] Lungs & Thorax: Bilateral breath sounds clear to auscultation, tunneled single- lumen central line and right upper chest wall Abdomen: Bowel sounds normal, soft, tenderness noted in the lower abdomen, Navarro catheter is in place cloudy brown/yellow urine in the bag. [] Skin: Warm, dry, no erythema, no rash. [] Back: No tenderness, no CVA tenderness. [] Extremities: No tenderness, no cyanosis, no clubbing, ROM intact, no edema. [] Neurologic: Alert and oriented X 3, normal motor function, normal sensory function, no focal deficits noted. [] Psychologic: Affect normal, judgement normal, mood normal. [] Current Patient Data: Labs: Laboratory Tests Test 04/05/21 17:20 04/05/21 17:29 04/05/21 18:35 White Blood Count 12.2 x10^3/uL Red Blood Count 2.63 x10^6/uL Hemoglobin 7.3 g/dL Hematocrit 22.7 % Mean Corpuscular Volume 86 fL Mean Corpuscular Hemoglobin 28 pg Mean Corpuscular Hemoglobin Concent 32 g/dL Red Cell Distribution Width 18.8 % Platelet Count 436 x10^3/uL Neutrophils (%) (Auto) 78 % Lymphocytes (%) (Auto) 10 % Monocytes (%) (Auto) 7 % Eosinophils (%) (Auto) 5 % Basophils (%) (Auto) 1 % Neutrophils # (Auto) 9.6 x10^3/uL Lymphocytes # (Auto) 1.2 x10^3/uL Monocytes # (Auto) 0.8 x10^3/uL Eosinophils # (Auto) 0.6 x10^3/uL Basophils # (Auto) 0.1 x10^3/uL Sodium Level 134 mmol/L Potassium Level 5.2 mmol/L Chloride Level 101 mmol/L Carbon Dioxide Level 22 mmol/L Anion Gap 11 Blood Urea Nitrogen 94 mg/dL Creatinine 5.3 mg/dL Estimated GFR (Cockcroft-Gault) 7.8 BUN/Creatinine Ratio 18 Glucose Level 156 mg/dL Lactic Acid Level 1.4 mmol/L Calcium Level 8.5 mg/dL Total Bilirubin 0.3 mg/dL Aspartate Amino Transf (AST/SGOT) 11 U/L Alanine Aminotransferase (ALT/SGPT) 14 U/L Alkaline Phosphatase 95 U/L Troponin I High Sensitivity 11 ng/L Total Protein 7.2 g/dL Albumin 2.4 g/dL Albumin/Globulin Ratio 0.5 Procalcitonin 0.22 ng/mL SARS-CoV-2 Antigen (Rapid) Negative Urine Collection Type U cath Urine Color Other Urine Clarity Turbid Urine pH 5.5 Urine Specific [place] 1.015 Urine Protein >=300 mg/dL Urine Glucose (UA) Negative mg/dL Urine Ketones (Stick) Negative mg/dL Urine Blood Large Urine Nitrite Negative Urine Bilirubin Negative Urine Urobilinogen Dipstick 0.2 mg/dL Urine Leukocyte Esterase Large Urine RBC Tntc /HPF Urine WBC Tntc /HPF Urine Squamous Epithelial Cells Occ /LPF Urine Amorphous Sediment Present /HPF Urine Bacteria Many /HPF Urine Yeast Present /HPF Vital Signs: Vital Signs Date Time Temp Pulse Resp B/P (MAP) Pulse Ox O2 Delivery O2 Flow Rate FiO2 04/05/21 23:22 97.6 105 22 107/52 (70) 98 Room Air 97.6 04/05/21 16:14 97.6 100 20 141/60 (87) 98 Room Air 97.6 Vital Signs Date Time Temp Pulse Resp B/P (MAP) Pulse Ox O2 Delivery O2 Flow Rate FiO2 04/05/21 16:14 97.6 100 20 141/60 (87) 98 Room Air 97.6 EKG: EKG: [] Radiology/Procedures: Radiology/Procedures: REASON: abnormal labs PROCEDURE: CHEST AP ONLY Single view of the chest. 04/05/2021 4:29 PM Indication: Reason: abnormal labs / Spl. Instructions: / History: Comparison: Chest radiograph February 21, 2021 Findings: Right internal jugular tunneled central line noted. There is no focal consolidation. There is no pleural effusion or pneumothorax. The heart size is normal. No acute osseous abnormalities are seen. Impression: No evidence of acute cardiopulmonary process. Electronically signed by: Jitendra Mckeon MD (04/05/2021 4:32 PM) [id number] [] Course & Med Decision Making: Course & Med Decision Making Pertinent Labs and Imaging studies reviewed. (See chart for details) 1919 review of labs shows an increase in BUN/creatinine from her last admission, also her urine appears to have bacteria in it. Will consult with Dr. Lugo for admission and the type of antibiotics he wishes at this time. Amarion Disclaimer: Amarion Disclaimer: This electronic medical record was generated, in whole or in part, using a voice recognition dictation system. Departure Departure Impression: Primary Impression: Acute renal failure Qualified Codes: N17.9 - Acute kidney failure, unspecified Additional Impression: UTI (urinary tract infection) Qualified Codes: T83.511A - Infection and inflammatory reaction due to indwelling urethral catheter, initial encounter; N39.0 - Urinary tract infection, site not specified Disposition: ADMITTED INPATIENT Admitting Physician: HIMS Referrals: HARPREET ZAMORA MD (PCP) NETO DEL ANGEL APRN Apr 05, 2021 16:13
--- NOTE | 2021-04-05 16:35 | RAD ---
Single view of the chest. 04/05/2021 4:29 PM Indication: Reason: abnormal labs / Spl. Instructions: / History: Comparison: Chest radiograph February 21, 2021 Findings: Right internal jugular tunneled central line noted. There is no focal consolidation. There is no pleural effusion or pneumothorax. The heart size is normal. No acute osseous abnormalities are seen. Impression: No evidence of acute cardiopulmonary process. Electronically signed by: Jitendra Mckeon MD (04/05/2021 4:32 PM) [id number]
[2021-04-05 17:31] LABS: BASO # 0.1 x10^3/uL (0.0-0.2); BASO % 1 % (0-3); EOS # 0.6 x10^3/uL (0.0-0.7); EOS % 5 % (0-3); HEMATOCRIT 22.7 % (36.0-47.0); HEMOGLOBIN 7.3 g/dL (12.0-15.5); LYMPH # 1.2 x10^3/uL (1.0-4.8); LYMPH % 10 % (24-48); MEAN CORPUSCULAR HEMOGLOBIN 28 pg (25-35); MEAN CORPUSCULAR HGB CONC 32 g/dL (31-37); MEAN CORPUSCULAR VOLUME 86 fL (79-100); MONO # 0.8 x10^3/uL (0.0-1.1); MONO % 7 % (0-9); NEUT # 9.6 x10^3/uL (1.8-7.7); NEUT % 78 % (31-73); PLATELET COUNT 436 x10^3/uL (140-400); RED BLOOD COUNT 2.63 x10^6/uL (3.50-5.40); RED CELL DISTRIBUTION WIDTH 18.8 % (11.5-14.5); WHITE BLOOD COUNT 12.2 x10^3/uL (4.0-11.0)
[2021-04-05 17:49] LABS: CALCIUM 8.5 mg/dL (8.5-10.1); CREATININE 5.3 mg/dL (0.6-1.0); GFR 7.8; POTASSIUM 5.2 mmol/L (3.5-5.1)
[2021-04-05 17:59] LABS: ALBUMIN 2.4 g/dL (3.4-5.0); ALBUMIN/GLOBULIN RATIO 0.5 (1.0-1.7); TOTAL BILIRUBIN 0.3 mg/dL (0.2-1.0); TOTAL PROTEIN 7.2 g/dL (6.4-8.2)
[2021-04-05 18:49] LABS: BILIRUBIN,URINE NEGATIVE (NEG); CLARITY,URINE TURBID; COLOR,URINE OTHER; NITRITE,URINE NEGATIVE (NEG); PH,URINE 5.5 (<5.0-8.0); PROTEIN,URINE >=300 mg/dL (NEG-TRACE); UROBILINOGEN,URINE 0.2 mg/dL (0.2 mg/dL)
[2021-04-05 19:06] LABS: AMORPHOUS SEDIMENT,UR PRESENT /HPF; BACTERIA,URINE MANY /HPF (0-FEW); RBC,URINE TNTC /HPF (0-2); WBC,URINE TNTC /HPF (0-4)
[2021-04-05 19:07] LABS: YEAST,URINE PRESENT /HPF
--- NOTE | 2021-04-05 19:10 | EKG ---
[facility] [address] [place] [address] Test Date: 2021-04-05 Test Time: 17:17:09 Pat Name: MERRICK ARRIAGA Department: Room: Gender: F Clinical Account Executive: : 1940 Requested By: NETO DEL ANGEL Order Number: [id number] Reading MD: Basil Caldwell Measurements Intervals [place] Rate: 100 P: 0 NH: 166 QRS: 21 QRSD: 76 T: 26 QT: 330 QTc: 429 Interpretive Statements SINUS RHYTHM Electronically Signed On 04-06-2021 14:30:47 IN CLASS SPECIAL EDUCATION TEACHER by Basil Caldwell
--- NOTE | 2021-04-05 19:39 | PDOC1 ---
History and Physical Date of Admission Date of Admission DATE: 04/05/21 TIME: 19:38 Identification/Chief Complaint Chief Complaint Abnormal labs Source Source: Chart review, Patient History of Present Illness History of Present Illness Ms Cheng is a 80yo female with PMHx afib, prior DVT/PE, OA, CKD, HTN, DM2 who comes to ED via EMS from her nursing facility [facility] for fall at SNF and abnormal urine and labs. She fell out of bed while her diaper was being changed the night prior to admission, notes she has bruises to left knee, left elbow, left flank scabbed abrasion to left scalp she thinks tore open. She think she had negative imaging prior to transfer to ED. She did not have loss of consciousness. Patient denies neck pain or head pain. Her only complaints are memory difficulties, weakness and debility and gluteal pain Patient does have a Navarro catheter in place and a tunneled single lumen RIJ, she notes since a discharge on 03/06 for debility she had Urology follow up and was admitted to [facility], does not recall most of her stay and does not know why she has a tunneled line in her right chest wall, does not think she is being given meds. WBC 12.2, Hb 7.3, platelets 436, NA 134, K5.2, BUN 94, CR 5.3, glucose 156, albumin 2.4, LFTs otherwise within normal laboratory limits, high-sensitivity troponin is 11, lactic acid 1.4, procalcitonin 0.22, urinalysis large leukocyte esterase large blood, rapid COVID-19 negative Chest radiograph with no acute abnormalities Admitted for further care Past Medical History Cardiovascular: AFIB, HTN, Hyperlipidemia, Other Pulmonary: Pulmonary embolus, Other CENTRAL NERVOUS SYSTEM: Periperal neuropathy, Other GI: GERD Heme/Onc: Anemia NOS Hepatobiliary: No pertinent hx Psych: No pertinent hx Musculoskeletal: Osteoarthritis Rheumatologic: Gout Infectious disease: No pertinent hx Renal/: Chronic renal insuff Endocrine: Diabetes Past Surgical History Past Surgical History: Tonsillectomy Family History Family History: Hypertension Social History Smoke: No ALCOHOL: none Drugs: None Current Medications Current Medications Active Scripts Active Amlodipine Besylate 5 Mg Tablet 5 Mg PO DAILY 60 Days Zyvox (Linezolid) 600 Mg Tablet 600 Mg PO BID 4 Days Amox Tr-K Clv 500-125 Mg Tab (Amoxicillin/Potassium Clav) 1 Each Tablet 1 Tab PO BID 4 Days Polyethylene Glycol 3350 17 Gm Powd.pack 17 Gm PO DAILY PRN 30 Days Aspirin 81 Mg Tab.chew 1 Tab PO DAILY Nystop (Nystatin) 60 Gm Powder 1 [place] TP QID 15 Days Culturelle (Lactobacillus Rhamnosus Gg) 1 Each Cap.sprink 1 Cap PO BID 30 Days Feosol (Ferrous Sulfate) 325 Mg Tablet 325 Mg PO BIDWMEALS 30 Days Tylenol (Acetaminophen) 325 Mg Tablet 1-2 Tab PO QID PRN Lantus (Insulin Glargine,Hum.rec.anlog) 100 Unit/1 Ml Vial 20 Unit SQ BID 30 Days Reported Furosemide 40 Mg Tablet 1 Tab PO DAILY Vitamin D2 (Ergocalciferol (Vitamin D2)) 50,000 Unit Capsule 1 Cap PO WEEKLY Pantoprazole Sodium (Pantoprazole Sodium) 40 Mg Tablet.dr 1 Tab PO DAILY Atorvastatin Calcium 40 Mg Tablet 1 Tab PO QHS Allergies Allergies: Coded Allergies: No Known Drug Allergies (Unverified , 04/05/21) ROS General: YES: Fatigue, Malaise; No: Chills, Night Sweats, Appetite, Other PSYCHOLOGICAL ROS: YES: Memory difficulties; No: Anxiety, Behavioral Disorder, Concentration difficultie, Decreased libido, Depression, Disorientation, Hallucinations, Hostility, Irritablity, Mood Swings, Obsessive thoughts, Physical abuse, Sexual abuse, Sleep disturbances, Suicidal ideation, Other Eyes: No Blurry vision, No Decreased vision, No Double vision, No Dry eyes, No Excessive tearing, No Eye Pain, No Itchy Eyes, No Loss of vision, No Photophobia, No Scotomata, No Uses contacts, No Uses glasses, No Other HEENT: No: Heacaches, Visual Changes, Hearing change, Nasal congestion, Nasal discharge, Oral lesions, Sinus pain, Sore Throat, Epistaxis, Sneezing, Snoring, Tinnitus, Vertigo, Vocal changes, Other ALLERGY AND IMMUNOLOGY: No: Hives, Insect Bite Sensitivity, Itchy/Watery Eyes, Nasal Congestion, Post Nasal Drip, Seasonal Allergies, Other Hematological and Lymphatic: YES: Blood Clots, Blood Transfusions; No: Bleeding Problems, Brusing, Night Sweats, Pallor, Swollen Lymph Nodes, Other ENDOCRINE: No: Breast Changes, Galactorrhea, Hair Pattern Changes, Hot Flashes, Malaise/lethargy, Mood Swings, Palpitations, Polydipsia/polyuria, Skin Changes, Temperature Intolerance, Unexpected Weight Changes, Other Breast: No New/Changing Breast Lumps, No Nipple changes, No Nipple discharge, No Other Respiratory: No: Cough, Hemoptysis, Orthopnea, Pleuritic Pain, Shortness of breath, SOB with excertion, Sputum Changes, Stridor, Tachypnea, Wheezing, Other Cardiovascular: No Chest Pain, No Palpitations, No Orthopnea, No Paroxysmal Noc. Dyspnea, No Edema, No Lt Headedness, No Other Gastrointestinal: No Nausea, No Vomiting, No Abdominal Pain, No Diarrhea, No Constipation, No Melena, No Hematochezia, No Other Genitourinary: YES Dysuria; No Frequency, No Incontinence, No Hematuria, No Retention, No Discharge, No Urgency, No Pain, No Flank Pain, No Other, No , No , No , No , No , No , No Musculoskeletal: Yes Gait Disturbance, Yes Muscular Weakness; No Joint Pain, No Joint Stiffness, No Joint Swelling, No Muscle Pain, No Pain In:, No Swelling In:, No Other Neurological: No Behavorial Changes, No Bowel/Bladder ControlChng, No Confusion, No Dizziness, No Gait Disturbance, No Headaches, No Impaired Coord/balance, No Memory Loss, No Numbness/Tingling, No Seizures, No Speech Problems, No Tremors, No Visual Changes, No Weakness, No Other Skin: No Dry Skin, No Eczema, No Hair Changes, No Lumps, No Mole Changes, No Mottling, No Nail Changes, No Pruritus, No Rash, No Skin Lesion Changes, No Other, No Acne Physical Exam General: Alert, Oriented X3, Cooperative, mild distress HEENT: PERRLA, EOMI, Mucous membr. moist/pink, Other (Scalp abrasion) Lungs: Clear to auscultation, Normal air movement Heart: S1S2, RRR, no thrills, no rubs, no gallops, no murmurs, other (right chest wall tunneled catheter) Abdomen: Normal bowel sounds, Soft, No tenderness, No hepatosplenomegaly, No masses Rectal Exam: not examined Extremities: No clubbing, No cyanosis, Other (Bruises to left knee, left elbow, left flank scabbed abrasion to left scalp) Skin: No rashes, No breakdown, Other (gluteal redness) Neuro: Normal speech, Strength at 5/5 X4 ext, Normal tone, Sensation intact, Cranial nerves 3-12 NL, Reflexes 2+ Psych/Mental Status: Mental status NL, Mood NL Vitals Vitals Vital Signs Date Time Temp Pulse Resp B/P (MAP) Pulse Ox O2 Delivery O2 Flow Rate FiO2 04/05/21 16:14 97.6 100 20 141/60 (87) 98 Room Air 97.6 Labs Labs Laboratory Tests Test 04/05/21 17:20 04/05/21 17:29 04/05/21 18:35 White Blood Count 12.2 x10^3/uL (4.0-11.0) Red Blood Count 2.63 x10^6/uL (3.50-5.40) Hemoglobin 7.3 g/dL (12.0-15.5) Hematocrit 22.7 % (36.0-47.0) Mean Corpuscular Volume 86 fL (79-100) Mean Corpuscular Hemoglobin 28 pg (25-35) Mean Corpuscular Hemoglobin Concent 32 g/dL (31-37) Red Cell Distribution Width 18.8 % (11.5-14.5) Platelet Count 436 x10^3/uL (140-400) Neutrophils (%) (Auto) 78 % (31-73) Lymphocytes (%) (Auto) 10 % (24-48) Monocytes (%) (Auto) 7 % (0-9) Eosinophils (%) (Auto) 5 % (0-3) Basophils (%) (Auto) 1 % (0-3) Neutrophils # (Auto) 9.6 x10^3/uL (1.8-7.7) Lymphocytes # (Auto) 1.2 x10^3/uL (1.0-4.8) Monocytes # (Auto) 0.8 x10^3/uL (0.0-1.1) Eosinophils # (Auto) 0.6 x10^3/uL (0.0-0.7) Basophils # (Auto) 0.1 x10^3/uL (0.0-0.2) Sodium Level 134 mmol/L (136-145) Potassium Level 5.2 mmol/L (3.5-5.1) Chloride Level 101 mmol/L (98-107) Carbon Dioxide Level 22 mmol/L (21-32) Anion Gap 11 (6-14) Blood Urea Nitrogen 94 mg/dL (7-20) Creatinine 5.3 mg/dL (0.6-1.0) Estimated GFR (Cockcroft-Gault) 7.8 BUN/Creatinine Ratio 18 (6-20) Glucose Level 156 mg/dL (70-99) Lactic Acid Level 1.4 mmol/L (0.4-2.0) Calcium Level 8.5 mg/dL (8.5-10.1) Total Bilirubin 0.3 mg/dL (0.2-1.0) Aspartate Amino Transf (AST/SGOT) 11 U/L (15-37) Alanine Aminotransferase (ALT/SGPT) 14 U/L (14-59) Alkaline Phosphatase 95 U/L (46-116) Troponin I High Sensitivity 11 ng/L (4-50) Total Protein 7.2 g/dL (6.4-8.2) Albumin 2.4 g/dL (3.4-5.0) Albumin/Globulin Ratio 0.5 (1.0-1.7) Procalcitonin 0.22 ng/mL (0.00-0.10) SARS-CoV-2 Antigen (Rapid) Negative (NEGATIVE) Urine Collection Type U cath Urine Color Other Urine Clarity Turbid Urine pH 5.5 (<5.0-8.0) Urine Specific [place] 1.015 (1.000-1.030) Urine Protein >=300 mg/dL (NEG-TRACE) Urine Glucose (UA) Negative mg/dL (NEG) Urine Ketones (Stick) Negative mg/dL (NEG) Urine Blood Large (NEG) Urine Nitrite Negative (NEG) Urine Bilirubin Negative (NEG) Urine Urobilinogen Dipstick 0.2 mg/dL (0.2 mg/dL) Urine Leukocyte Esterase Large (NEG) Urine RBC Tntc /HPF (0-2) Urine WBC Tntc /HPF (0-4) Urine Squamous Epithelial Cells Occ /LPF Urine Amorphous Sediment Present /HPF Urine Bacteria Many /HPF (0-FEW) Urine Yeast Present /HPF Laboratory Tests Test 04/05/21 17:20 04/05/21 17:29 04/05/21 18:35 White Blood Count 12.2 x10^3/uL (4.0-11.0) Red Blood Count 2.63 x10^6/uL (3.50-5.40) Hemoglobin 7.3 g/dL (12.0-15.5) Hematocrit 22.7 % (36.0-47.0) Mean Corpuscular Volume 86 fL (79-100) Mean Corpuscular Hemoglobin 28 pg (25-35) Mean Corpuscular Hemoglobin Concent 32 g/dL (31-37) Red Cell Distribution Width 18.8 % (11.5-14.5) Platelet Count 436 x10^3/uL (140-400) Neutrophils (%) (Auto) 78 % (31-73) Lymphocytes (%) (Auto) 10 % (24-48) Monocytes (%) (Auto) 7 % (0-9) Eosinophils (%) (Auto) 5 % (0-3) Basophils (%) (Auto) 1 % (0-3) Neutrophils # (Auto) 9.6 x10^3/uL (1.8-7.7) Lymphocytes # (Auto) 1.2 x10^3/uL (1.0-4.8) Monocytes # (Auto) 0.8 x10^3/uL (0.0-1.1) Eosinophils # (Auto) 0.6 x10^3/uL (0.0-0.7) Basophils # (Auto) 0.1 x10^3/uL (0.0-0.2) Sodium Level 134 mmol/L (136-145) Potassium Level 5.2 mmol/L (3.5-5.1) Chloride Level 101 mmol/L (98-107) Carbon Dioxide Level 22 mmol/L (21-32) Anion Gap 11 (6-14) Blood Urea Nitrogen 94 mg/dL (7-20) Creatinine 5.3 mg/dL (0.6-1.0) Estimated GFR (Cockcroft-Gault) 7.8 BUN/Creatinine Ratio 18 (6-20) Glucose Level 156 mg/dL (70-99) Lactic Acid Level 1.4 mmol/L (0.4-2.0) Calcium Level 8.5 mg/dL (8.5-10.1) Total Bilirubin 0.3 mg/dL (0.2-1.0) Aspartate Amino Transf (AST/SGOT) 11 U/L (15-37) Alanine Aminotransferase (ALT/SGPT) 14 U/L (14-59) Alkaline Phosphatase 95 U/L (46-116) Troponin I High Sensitivity 11 ng/L (4-50) Total Protein 7.2 g/dL (6.4-8.2) Albumin 2.4 g/dL (3.4-5.0) Albumin/Globulin Ratio 0.5 (1.0-1.7) Procalcitonin 0.22 ng/mL (0.00-0.10) SARS-CoV-2 Antigen (Rapid) Negative (NEGATIVE) Urine Collection Type U cath Urine Color Other Urine Clarity Turbid Urine pH 5.5 (<5.0-8.0) Urine Specific [place] 1.015 (1.000-1.030) Urine Protein >=300 mg/dL (NEG-TRACE) Urine Glucose (UA) Negative mg/dL (NEG) Urine Ketones (Stick) Negative mg/dL (NEG) Urine Blood Large (NEG) Urine Nitrite Negative (NEG) Urine Bilirubin Negative (NEG) Urine Urobilinogen Dipstick 0.2 mg/dL (0.2 mg/dL) Urine Leukocyte Esterase Large (NEG) Urine RBC Tntc /HPF (0-2) Urine WBC Tntc /HPF (0-4) Urine Squamous Epithelial Cells Occ /LPF Urine Amorphous Sediment Present /HPF Urine Bacteria Many /HPF (0-FEW) Urine Yeast Present /HPF Images Images Chest radiograph: Right internal jugular tunneled central line noted. There is no focal consolidation. There is no pleural effusion or pneumothorax. The heart size is normal. No acute osseous abnormalities are seen. Impression: No evidence of acute cardiopulmonary process. VTE Prophylaxis Ordered VTE Prophylaxis Devices: No VTE Pharmacological Prophylaxi: Yes Assessment/Plan Assessment/Plan A/P: Uremia - likely from renal failure. Will hydrate, hold nephrotoxic meds, consult nephrology. IVF resuscitation Lymphedema - chronic, will have OT evaluate. Hold diuretics for BOBBY Acute anemia -possibly of CKD. On chronic iron denies any GI losses will check iron stores transfuse for Hb less than 7 Morbid obesity -counseled on diet weight loss. Hypertension - continue home meds Paroxsymal afib - noted in [facility] in 2017, has been sinus since. Was on coumadin, rate controlled. Not on warfarin now Urinary tract infection - with positive leuk esterase, negative nitrates, will give empiric Rocephin BOBBY on CKD - with uremia. Vasomotor nephropathy likely. WIll assess renal US. obtain [facility] records. Consult nephrology DM2 - Sliding scale, lantus QHS prior DVT/PE - off anticoagulation OA - tylenol prn Gluteal pain - redness, will cont frequent turning Bruises to left knee, left elbow, left flank scabbed abrasion to left scalp - local wound care FEN - Renal diet PPX - heparin FULL CODE Dispo - inpatient for above Justifications for Admission Other Justification LAURIE GIBSON MD Apr 05, 2021 19:39
[2021-04-05] MEDS ORDERED: IV NORMAL SALINE 1000ML BAG 1,000 ML IV ONE ×2 (19:45)
[2021-04-05] MEDS ORDERED: cefTRIAXone IV Push 1 GM VIAL. IVP ONE (19:45)
[2021-04-05] MEDS ORDERED: POLYETHYLENE GLYCOL 3350 17 GM PACKET. PO PRN (22:30)
[2021-04-05] MEDS ORDERED: DEXTROSE 50% 25 GM / 50ML DISP.SYRIN. IV PRN (22:30)
[2021-04-05] MEDS ORDERED: INSULIN GLARGINE SYRINGE. SQ SCH (22:45)
[2021-04-05] MEDS: INSULIN GLARGINE SYRINGE. SQ SCH (23:20)
[2021-04-05] MEDS: ATORVASTATIN CALCIUM 40 MG TABLET. PO SCH (23:20)
[2021-04-06] MEDS: PANTOPRAZOLE 40 MG TABLET.DR. PO SCH (07:52)
[2021-04-06] MEDS: FERROUS SULFATE 325 MG TABLET. PO SCH ×2 (07:53→18:03)
[2021-04-06] MEDS: INSULIN LISPRO 300 UNITS/3 ML VIAL. SQ SCH ×3 (07:57→17:00)
--- NOTE | 2021-04-06 08:00 | RAD ---
INDICATION: Reason: BOBBY, h/o hydronephrosis, concern for obstructive uropathy / Spl. Instructions: / History: COMPARISON: February 22, 2021 TECHNIQUE: Grayscale and color ultrasound images obtained of the bilateral kidneys and bladder. FINDINGS: Right Kidney: 110 mm. Left Kidney: 107 mm. Bilateral mild to moderate hydronephrosis again seen Bladder: Minimal urine within. IMPRESSION: * Persistent bilateral hydronephrosis with severity comparable to prior. Electronically signed by: Brayan Lafleur MD (04/06/2021 7:58 AM) [id number]
[2021-04-06] MEDS: LACTOBACILLUS RHAMNOSUS GG 1 CAPSULE. PO SCH ×2 (09:02→20:54)
[2021-04-06] MEDS: cefTRIAXone IV Push 1 GM VIAL. IVP SCH (09:05)
--- NOTE | 2021-04-06 11:28 | PDOC2 ---
CONSULT Date of Consult Date of Consult DATE: 04/06/21 TIME: 11:20 Reason for Consult Reason for Consult: BOBBY Referring Physician Referring Physician: MELODYFEL Identification/Chief Complaint Chief Complaint FALL AND ABNORMAL LABS Source Source: Chart review History of Present Illness Reason for Visit: THIS IS A 80 YR OLD FEMALE ADMITTED WITH CONFUSION, FALLS AND ABNORMAL LABS. CR OF 5.3 NOTED SHE HAS HAS PROGRESSIVE CKD. CKD STAGE 3 WITH CR AVG OF ABOUT 1.8 A YEAR AGO. THEN LATE LAST YEAR CR STABILIZED AT ABOUT 3.0-3.5. SHE WAS NOTED TO HAVE BILATERAL MODERATE HYDRONEPHROSIS AND WAS TO SEE UROLOGY OP AFTER DISCHARGE FROM HERE LAST MONTH. HER RENAL FUNCTION IS WORSE WITH PERSISTENT HYDR ONEPHROSIS. SHE APPARENTLY FELL OUT OF HER BED AND HAS SOME BRUISES IN HER L KNEE, ELBOW AND FLANK AREA. SHE IS ALSO NOTED TO HAVE AN UTI AND LEUCOCYTOSIS. COVID 19 RAPID WAS NEG Past Medical History Cardiovascular: AFIB, HTN, Hyperlipidemia, Other Pulmonary: Pulmonary embolus, Other CENTRAL NERVOUS SYSTEM: Periperal neuropathy, Other GI: GERD Heme/Onc: Anemia NOS Hepatobiliary: No pertinent hx Psych: No pertinent hx Musculoskeletal: Osteoarthritis Rheumatologic: Gout Infectious disease: No pertinent hx Renal/: Chronic renal insuff, Acute renal failure Endocrine: Diabetes Past Surgical History Past Surgical History: Tonsillectomy Family History Family History: Hypertension Social History No ALCOHOL: none Drugs: None Lives: Alone Current Problem List Problem List Problems Medical Problems: (1) Acute renal failure Status: Acute Current Medications Current Medications Current Medications Sodium Chloride 1,000 ml @ 999 mls/hr 1X ONCE IV Last administered on 04/05/21at 20:14; Start 04/05/21 at 19:45; Stop 04/05/21 at 20:45; Status DC Ceftriaxone Sodium (Rocephin) 1 gm 1X ONCE IVP Last administered on 04/05/21at 20:55; Start 04/05/21 at 19:45; Stop 04/05/21 at 19:48; Status DC Ondansetron HCl (Zofran) 4 mg PRN Q4HRS PRN IVP NAUSEA/VOMITING; Start 04/05/21 at 19:45 Olanzapine (ZyPREXA ZYDIS) 5 mg PRN BID PRN PO ANXIETY / AGITATION; Start 04/05/21 at 19:45 Acetaminophen (Tylenol) 650 mg PRN Q6HRS PRN PO MILD PAIN / TEMP > 100.3'F; Start 04/05/21 at 19:45 Sodium Chloride 1,000 ml @ 75 mls/hr 1X ONCE IV Last administered on 04/05/21at 21:38; Start 04/05/21 at 19:45; Stop 04/06/21 at 09:04; Status DC Amlodipine Besylate (Norvasc) 5 mg DAILY PO Last administered on 04/06/21at 09:03; Start 04/06/21 at 09:00 Atorvastatin Calcium (Lipitor) 40 mg QHS PO Last administered on 04/05/21at 23:20; Start 04/05/21 at 23:00 Ferrous Sulfate (Feosol) 325 mg BIDWMEALS PO Last administered on 04/06/21at 07:53; Start 04/06/21 at 08:00 Lactobacillus Rhamnosus (Culturelle) 1 cap BID PO Last administered on 04/06/21at 09:02; Start 04/06/21 at 09:00 Pantoprazole Sodium (Protonix) 40 mg DAILY07 PO Last administered on 04/06/21at 07:52; Start 04/06/21 at 07:00 Polyethylene Glycol (miraLAX PACKET) 17 gm PRN DAILY PRN PO CONSTIPATION; Start 04/05/21 at 22:30 Insulin Glargine (Lantus Syringe) 20 unit QHS SQ ; Start 04/05/21 at 22:45; Stop 04/05/21 at 22:36; Status DC Insulin Human Lispro (HumaLOG) 0-7 UNITS TIDWMEALS SQ ; Start 04/06/21 at 08:00 Dextrose (Dextrose 50%-Water Syringe) 12.5 gm PRN Q15MIN PRN IV SEE COMMENTS; Start 04/05/21 at 22:30 Ceftriaxone Sodium (Rocephin) 1 gm DAILY IVP Last administered on 04/06/21at 09:05; Start 04/06/21 at 09:00 Insulin Glargine (Lantus Syringe) 8 unit QHS SQ Last administered on 04/05/21at 23:20; Start 04/05/21 at 23:00 Active Scripts Active Amlodipine Besylate 5 Mg Tablet 5 Mg PO DAILY 60 Days Zyvox (Linezolid) 600 Mg Tablet 600 Mg PO BID 4 Days Amox Tr-K Clv 500-125 Mg Tab (Amoxicillin/Potassium Clav) 1 Each Tablet 1 Tab PO BID 4 Days Polyethylene Glycol 3350 17 Gm Powd.pack 17 Gm PO DAILY PRN 30 Days Aspirin 81 Mg Tab.chew 1 Tab PO DAILY Nystop (Nystatin) 60 Gm Powder 1 [place] TP QID 15 Days Culturelle (Lactobacillus Rhamnosus Gg) 1 Each Cap.sprink 1 Cap PO BID 30 Days Feosol (Ferrous Sulfate) 325 Mg Tablet 325 Mg PO BIDWMEALS 30 Days Tylenol (Acetaminophen) 325 Mg Tablet 1-2 Tab PO QID PRN Lantus (Insulin Glargine,Hum.rec.anlog) 100 Unit/1 Ml Vial 20 Unit SQ BID 30 Days Reported Furosemide 40 Mg Tablet 1 Tab PO DAILY Vitamin D2 (Ergocalciferol (Vitamin D2)) 50,000 Unit Capsule 1 Cap PO WEEKLY Pantoprazole Sodium (Pantoprazole Sodium) 40 Mg Tablet.dr 1 Tab PO DAILY Atorvastatin Calcium 40 Mg Tablet 1 Tab PO QHS Allergies Allergies: Coded Allergies: No Known Drug Allergies (Unverified , 04/05/21) ROS Review of System CONFUSED, UNABLE TO OBTAIN Physical Exam General: Cooperative, No acute distress HEENT: Atraumatic Lungs: Clear to auscultation Heart: Regular rate Abdomen: Normal bowel sounds, No tenderness Extremities: No clubbing Skin: No breakdown Neuro: Other (CONFUSED, NO ASYMMETRY) Psych/Mental Status: Other (CONFUSED) MUSCULOSKELETAL: No joint tenderness, No deformity Vitals VITALS Vital Signs Date Time Temp Pulse Resp B/P (MAP) Pulse Ox O2 Delivery O2 Flow Rate FiO2 04/06/21 09:03 104 134/61 04/06/21 09:02 18 98 Room Air 04/05/21 23:22 97.6 97.6 Labs Labs Laboratory Tests Test 04/05/21 17:20 04/05/21 17:29 04/05/21 18:35 04/05/21 22:57 White Blood Count 12.2 x10^3/uL (4.0-11.0) Red Blood Count 2.63 x10^6/uL (3.50-5.40) Hemoglobin 7.3 g/dL (12.0-15.5) Hematocrit 22.7 % (36.0-47.0) Mean Corpuscular Volume 86 fL (79-100) Mean Corpuscular Hemoglobin 28 pg (25-35) Mean Corpuscular Hemoglobin Concent 32 g/dL (31-37) Red Cell Distribution Width 18.8 % (11.5-14.5) Platelet Count 436 x10^3/uL (140-400) Neutrophils (%) (Auto) 78 % (31-73) Lymphocytes (%) (Auto) 10 % (24-48) Monocytes (%) (Auto) 7 % (0-9) Eosinophils (%) (Auto) 5 % (0-3) Basophils (%) (Auto) 1 % (0-3) Neutrophils # (Auto) 9.6 x10^3/uL (1.8-7.7) Lymphocytes # (Auto) 1.2 x10^3/uL (1.0-4.8) Monocytes # (Auto) 0.8 x10^3/uL (0.0-1.1) Eosinophils # (Auto) 0.6 x10^3/uL (0.0-0.7) Basophils # (Auto) 0.1 x10^3/uL (0.0-0.2) Sodium Level 134 mmol/L (136-145) Potassium Level 5.2 mmol/L (3.5-5.1) Chloride Level 101 mmol/L (98-107) Carbon Dioxide Level 22 mmol/L (21-32) Anion Gap 11 (6-14) Blood Urea Nitrogen 94 mg/dL (7-20) Creatinine 5.3 mg/dL (0.6-1.0) Estimated GFR (Cockcroft-Gault) 7.8 BUN/Creatinine Ratio 18 (6-20) Glucose Level 156 mg/dL (70-99) Lactic Acid Level 1.4 mmol/L (0.4-2.0) Calcium Level 8.5 mg/dL (8.5-10.1) Total Bilirubin 0.3 mg/dL (0.2-1.0) Aspartate Amino Transf (AST/SGOT) 11 U/L (15-37) Alanine Aminotransferase (ALT/SGPT) 14 U/L (14-59) Alkaline Phosphatase 95 U/L (46-116) Troponin I High Sensitivity 11 ng/L (4-50) Total Protein 7.2 g/dL (6.4-8.2) Albumin 2.4 g/dL (3.4-5.0) Albumin/Globulin Ratio 0.5 (1.0-1.7) Procalcitonin 0.22 ng/mL (0.00-0.10) SARS-CoV-2 RNA (SIENNA) Negative (Negative) SARS-CoV-2 Antigen (Rapid) Negative (NEGATIVE) Urine Collection Type U cath Urine Color Other Urine Clarity Turbid Urine pH 5.5 (<5.0-8.0) Urine Specific [place] 1.015 (1.000-1.030) Urine Protein >=300 mg/dL (NEG-TRACE) Urine Glucose (UA) Negative mg/dL (NEG) Urine Ketones (Stick) Negative mg/dL (NEG) Urine Blood Large (NEG) Urine Nitrite Negative (NEG) Urine Bilirubin Negative (NEG) Urine Urobilinogen Dipstick 0.2 mg/dL (0.2 mg/dL) Urine Leukocyte Esterase Large (NEG) Urine RBC Tntc /HPF (0-2) Urine WBC Tntc /HPF (0-4) Urine Squamous Epithelial Cells Occ /LPF Urine Amorphous Sediment Present /HPF Urine Bacteria Many /HPF (0-FEW) Urine Yeast Present /HPF Glucose (Fingerstick) 131 mg/dL (70-99) Test 04/06/21 07:57 Glucose (Fingerstick) 121 mg/dL (70-99) Laboratory Tests Test 04/05/21 17:20 04/05/21 17:29 04/05/21 18:35 04/05/21 22:57 White Blood Count 12.2 x10^3/uL (4.0-11.0) Red Blood Count 2.63 x10^6/uL (3.50-5.40) Hemoglobin 7.3 g/dL (12.0-15.5) Hematocrit 22.7 % (36.0-47.0) Mean Corpuscular Volume 86 fL (79-100) Mean Corpuscular Hemoglobin 28 pg (25-35) Mean Corpuscular Hemoglobin Concent 32 g/dL (31-37) Red Cell Distribution Width 18.8 % (11.5-14.5) Platelet Count 436 x10^3/uL (140-400) Neutrophils (%) (Auto) 78 % (31-73) Lymphocytes (%) (Auto) 10 % (24-48) Monocytes (%) (Auto) 7 % (0-9) Eosinophils (%) (Auto) 5 % (0-3) Basophils (%) (Auto) 1 % (0-3) Neutrophils # (Auto) 9.6 x10^3/uL (1.8-7.7) Lymphocytes # (Auto) 1.2 x10^3/uL (1.0-4.8) Monocytes # (Auto) 0.8 x10^3/uL (0.0-1.1) Eosinophils # (Auto) 0.6 x10^3/uL (0.0-0.7) Basophils # (Auto) 0.1 x10^3/uL (0.0-0.2) Sodium Level 134 mmol/L (136-145) Potassium Level 5.2 mmol/L (3.5-5.1) Chloride Level 101 mmol/L (98-107) Carbon Dioxide Level 22 mmol/L (21-32) Anion Gap 11 (6-14) Blood Urea Nitrogen 94 mg/dL (7-20) Creatinine 5.3 mg/dL (0.6-1.0) Estimated GFR (Cockcroft-Gault) 7.8 BUN/Creatinine Ratio 18 (6-20) Glucose Level 156 mg/dL (70-99) Lactic Acid Level 1.4 mmol/L (0.4-2.0) Calcium Level 8.5 mg/dL (8.5-10.1) Total Bilirubin 0.3 mg/dL (0.2-1.0) Aspartate Amino Transf (AST/SGOT) 11 U/L (15-37) Alanine Aminotransferase (ALT/SGPT) 14 U/L (14-59) Alkaline Phosphatase 95 U/L (46-116) Troponin I High Sensitivity 11 ng/L (4-50) Total Protein 7.2 g/dL (6.4-8.2) Albumin 2.4 g/dL (3.4-5.0) Albumin/Globulin Ratio 0.5 (1.0-1.7) Procalcitonin 0.22 ng/mL (0.00-0.10) SARS-CoV-2 RNA (SIENNA) Negative (Negative) SARS-CoV-2 Antigen (Rapid) Negative (NEGATIVE) Urine Collection Type U cath Urine Color Other Urine Clarity Turbid Urine pH 5.5 (<5.0-8.0) Urine Specific [place] 1.015 (1.000-1.030) Urine Protein >=300 mg/dL (NEG-TRACE) Urine Glucose (UA) Negative mg/dL (NEG) Urine Ketones (Stick) Negative mg/dL (NEG) Urine Blood Large (NEG) Urine Nitrite Negative (NEG) Urine Bilirubin Negative (NEG) Urine Urobilinogen Dipstick 0.2 mg/dL (0.2 mg/dL) Urine Leukocyte Esterase Large (NEG) Urine RBC Tntc /HPF (0-2) Urine WBC Tntc /HPF (0-4) Urine Squamous Epithelial Cells Occ /LPF Urine Amorphous Sediment Present /HPF Urine Bacteria Many /HPF (0-FEW) Urine Yeast Present /HPF Glucose (Fingerstick) 131 mg/dL (70-99) Test 04/06/21 07:57 Glucose (Fingerstick) 121 mg/dL (70-99) Images Images INDICATION: Reason: BOBBY, h/o hydronephrosis, concern for obstructive uropathy / Spl. Instructions: / History: COMPARISON: February 22, 2021 TECHNIQUE: Grayscale and color ultrasound images obtained of the bilateral kidneys and bladder. FINDINGS: Right Kidney: 110 mm. Left Kidney: 107 mm. Bilateral mild to moderate hydronephrosis again seen Bladder: Minimal urine within. IMPRESSION: * Persistent bilateral hydronephrosis with severity comparable to prior. Electronically signed by: Brayan Lafleur MD (04/06/2021 7:58 AM) [id number] Assessment/Plan Assessment/Plan IMP BOBBY WITH CR OF 5.3-WAS 3.3-3.5 AND STABLE LAST MONTH-WAS FELT TO BE NEW BASELINE CKD STAGE 3 TO 4 CR OF ABOUT 1.7-1.9 A YEAR AGO URINARY TRACT INFECTION DEHYDRATION-APPEARS COMPENSATED POSS PRETIBIAL AREA CELLULITIS RECENTLY-IMPROVED HYDRONEPHROSIS- ANEMIA HX OF PAFIB LABILE HTN DM II PLAN ANTIBIOTICS AVOID NEPHROTOXINS NEEDS UROLOGY EVAL ADEQUATE UO WILL FOLLOW D/W ATTENDING MAY NEED DIALYSIS LABS IN AM LORRIE CHAVIS MD Apr 06, 2021 11:28
[2021-04-06 12:07] LABS: RED BLOOD COUNT 2.21 x10^6/uL (3.50-5.40); RED CELL DISTRIBUTION WIDTH 19.1 % (11.5-14.5); WHITE BLOOD COUNT 8.4 x10^3/uL (4.0-11.0)
[2021-04-06 12:17] LABS: HEMATOCRIT 19.2 % (36.0-47.0); HEMOGLOBIN 6.3 g/dL (12.0-15.5)
[2021-04-06 12:20] LABS: ALBUMIN 1.9 g/dL (3.4-5.0); ALBUMIN/GLOBULIN RATIO 0.4 (1.0-1.7); CALCIUM 8.1 mg/dL (8.5-10.1); CREATININE 4.8 mg/dL (0.6-1.0); GFR 8.8; POTASSIUM 4.7 mmol/L (3.5-5.1); TOTAL BILIRUBIN 0.2 mg/dL (0.2-1.0); TOTAL PROTEIN 6.7 g/dL (6.4-8.2)
[2021-04-06 12:23] LABS: PROTHROMBIN TIME PATIENT 14.8 SEC (11.7-14.0)
--- NOTE | 2021-04-06 13:32 | PDOC ---
[employer] PROGRESS NOTE Date of Service DOS: DATE: 04/06/21 TIME: 13:23 Chief Complaint Chief Complaint Assessment/Plan Uremia - likely from renal failure. Will hydrate, hold nephrotoxic meds, consult nephrology. IVF resuscitation Lymphedema - chronic, will have OT evaluate. Hold diuretics for BOBBY Acute anemia -possibly of CKD. On chronic iron denies any GI losses will check iron stores transfuse for Hb less than 7 Morbid obesity -counseled on diet weight loss. Hypertension - continue home meds Paroxsymal afib - noted in RVR in 2017, has been sinus since. Was on coumadin, rate controlled. Not on warfarin now Urinary tract infection - with positive leuk esterase, negative nitrates, will give empiric Rocephin BOBBY on CKD - with uremia. Vasomotor nephropathy likely. Renal ultrasound showing bilateral moderate hydronephrosis, needs urology evaluation. DM2 - Sliding scale, lantus QHS prior DVT/PE - off anticoagulation OA - tylenol prn Gluteal pain - redness, will cont frequent turning Bruises to left knee, left elbow, left flank scabbed abrasion to left scalp - local wound care FEN - Renal diet PPX - heparin FULL CODE Dispo - inpatient for above History of Present Illness History of Present Illness 80yo female with PMHx afib, prior DVT/PE, OA, CKD, HTN, DM2 who comes to ED via EMS from her nursing facility [facility] for fall at SNF and abnormal urine and labs. She fell out of bed while her diaper was being changed the night prior to admission, notes she has bruises to left knee, left elbow, left flank scabbed abrasion to left scalp she thinks tore open. She think she had negative imaging prior to transfer to ED. She did not have loss of consciousness. Patient denies neck pain or head pain. Her only complaints are memory difficulties, weakness and debility and gluteal pain Patient does have a Navarro catheter in place and a tunneled single lumen RIJ, she notes since a discharge on 03/06 for debility she had Urology follow up and was admitted to [facility], does not recall most of her stay and does not know why she has a tunneled line in her right chest wall, does not think she is being given meds Vitals/I&O Vitals/I&O: Vital Signs Date Time Temp Pulse Resp B/P (MAP) Pulse Ox O2 Delivery O2 Flow Rate FiO2 04/06/21 12:02 97 18 109/53 (71) 97 Room Air 04/05/21 23:22 97.6 97.6 I & O 04/05/21 04/05/21 04/06/21 15:00 23:00 07:00 Intake Total 1000 ml Balance 1000 ml Physical Exam General: Cooperative, No acute distress Heart: Regular rate Lungs: Clear Abdomen: Normal bowel sounds, No tenderness Extremities: No clubbing Skin: No breakdown Labs Labs: Laboratory Tests Test 04/05/21 17:20 04/05/21 17:29 04/05/21 18:35 04/05/21 22:57 White Blood Count 12.2 x10^3/uL (4.0-11.0) Red Blood Count 2.63 x10^6/uL (3.50-5.40) Hemoglobin 7.3 g/dL (12.0-15.5) Hematocrit 22.7 % (36.0-47.0) Mean Corpuscular Volume 86 fL (79-100) Mean Corpuscular Hemoglobin 28 pg (25-35) Mean Corpuscular Hemoglobin Concent 32 g/dL (31-37) Red Cell Distribution Width 18.8 % (11.5-14.5) Platelet Count 436 x10^3/uL (140-400) Neutrophils (%) (Auto) 78 % (31-73) Lymphocytes (%) (Auto) 10 % (24-48) Monocytes (%) (Auto) 7 % (0-9) Eosinophils (%) (Auto) 5 % (0-3) Basophils (%) (Auto) 1 % (0-3) Neutrophils # (Auto) 9.6 x10^3/uL (1.8-7.7) Lymphocytes # (Auto) 1.2 x10^3/uL (1.0-4.8) Monocytes # (Auto) 0.8 x10^3/uL (0.0-1.1) Eosinophils # (Auto) 0.6 x10^3/uL (0.0-0.7) Basophils # (Auto) 0.1 x10^3/uL (0.0-0.2) Sodium Level 134 mmol/L (136-145) Potassium Level 5.2 mmol/L (3.5-5.1) Chloride Level 101 mmol/L (98-107) Carbon Dioxide Level 22 mmol/L (21-32) Anion Gap 11 (6-14) Blood Urea Nitrogen 94 mg/dL (7-20) Creatinine 5.3 mg/dL (0.6-1.0) Estimated GFR (Cockcroft-Gault) 7.8 BUN/Creatinine Ratio 18 (6-20) Glucose Level 156 mg/dL (70-99) Lactic Acid Level 1.4 mmol/L (0.4-2.0) Calcium Level 8.5 mg/dL (8.5-10.1) Total Bilirubin 0.3 mg/dL (0.2-1.0) Aspartate Amino Transf (AST/SGOT) 11 U/L (15-37) Alanine Aminotransferase (ALT/SGPT) 14 U/L (14-59) Alkaline Phosphatase 95 U/L (46-116) Troponin I High Sensitivity 11 ng/L (4-50) Total Protein 7.2 g/dL (6.4-8.2) Albumin 2.4 g/dL (3.4-5.0) Albumin/Globulin Ratio 0.5 (1.0-1.7) Procalcitonin 0.22 ng/mL (0.00-0.10) SARS-CoV-2 RNA (SIENNA) Negative (Negative) SARS-CoV-2 Antigen (Rapid) Negative (NEGATIVE) Urine Collection Type U cath Urine Color Other Urine Clarity Turbid Urine pH 5.5 (<5.0-8.0) Urine Specific [place] 1.015 (1.000-1.030) Urine Protein >=300 mg/dL (NEG-TRACE) Urine Glucose (UA) Negative mg/dL (NEG) Urine Ketones (Stick) Negative mg/dL (NEG) Urine Blood Large (NEG) Urine Nitrite Negative (NEG) Urine Bilirubin Negative (NEG) Urine Urobilinogen Dipstick 0.2 mg/dL (0.2 mg/dL) Urine Leukocyte Esterase Large (NEG) Urine RBC Tntc /HPF (0-2) Urine WBC Tntc /HPF (0-4) Urine Squamous Epithelial Cells Occ /LPF Urine Amorphous Sediment Present /HPF Urine Bacteria Many /HPF (0-FEW) Urine Yeast Present /HPF Glucose (Fingerstick) 131 mg/dL (70-99) Test 1/7/22 07:57 04/06/21 11:19 04/06/21 12:12 Glucose (Fingerstick) 121 mg/dL (70-99) 182 mg/dL (70-99) White Blood Count 8.4 x10^3/uL (4.0-11.0) Red Blood Count 2.21 x10^6/uL (3.50-5.40) Hemoglobin 6.3 g/dL (12.0-15.5) Hematocrit 19.2 % (36.0-47.0) Mean Corpuscular Volume 87 fL (79-100) Mean Corpuscular Hemoglobin 29 pg (25-35) Mean Corpuscular Hemoglobin Concent 33 g/dL (31-37) Red Cell Distribution Width 19.1 % (11.5-14.5) Platelet Count 394 x10^3/uL (140-400) Prothrombin Time 14.8 SEC (11.7-14.0) Prothromb Time International Ratio 1.2 (0.8-1.1) Sodium Level 141 mmol/L (136-145) Potassium Level 4.7 mmol/L (3.5-5.1) Chloride Level 108 mmol/L (98-107) Carbon Dioxide Level 22 mmol/L (21-32) Anion Gap 11 (6-14) Blood Urea Nitrogen 84 mg/dL (7-20) Creatinine 4.8 mg/dL (0.6-1.0) Estimated GFR (Cockcroft-Gault) 8.8 BUN/Creatinine Ratio 18 (6-20) Glucose Level 160 mg/dL (70-99) Calcium Level 8.1 mg/dL (8.5-10.1) Total Bilirubin 0.2 mg/dL (0.2-1.0) Aspartate Amino Transf (AST/SGOT) 8 U/L (15-37) Alanine Aminotransferase (ALT/SGPT) 8 U/L (14-59) Alkaline Phosphatase 81 U/L (46-116) Total Protein 6.7 g/dL (6.4-8.2) Albumin 1.9 g/dL (3.4-5.0) Albumin/Globulin Ratio 0.4 (1.0-1.7) Assessment and Plan Assessmemt and Plan Problems Medical Problems: (1) Acute renal failure Status: Acute Comment Review of Relevant I have reviewed the following items edis (where applicable) has been applied. Medications: Current Medications Medications (Trade) Dose Ordered Sig/Angy Route PRN Reason Start Time Stop Time Status Last Admin Dose Admin Sodium Chloride 1,000 ml @ 999 mls/hr 1X ONCE IV 04/05/21 19:45 04/05/21 20:45 DC 04/05/21 20:14 Ceftriaxone Sodium (Rocephin) 1 gm 1X ONCE IVP 04/05/21 19:45 04/05/21 19:48 DC 04/05/21 20:55 Sodium Chloride 1,000 ml @ 75 mls/hr 1X ONCE IV 04/05/21 19:45 04/06/21 09:04 DC 04/05/21 21:38 Amlodipine Besylate (Norvasc) 5 mg DAILY PO 04/06/21 09:00 04/06/21 09:03 Atorvastatin Calcium (Lipitor) 40 mg QHS PO 04/05/21 23:00 04/05/21 23:20 Ferrous Sulfate (Feosol) 325 mg BIDWMEALS PO 04/06/21 08:00 04/06/21 07:53 Lactobacillus Rhamnosus (Culturelle) 1 cap BID PO 04/06/21 09:00 04/06/21 09:02 Pantoprazole Sodium (Protonix) 40 mg DAILY07 PO 04/06/21 07:00 04/06/21 07:52 Insulin Human Lispro (HumaLOG) 0-7 UNITS TIDWMEALS SQ 04/06/21 08:00 04/06/21 12:53 Ceftriaxone Sodium (Rocephin) 1 gm DAILY IVP 04/06/21 09:00 04/06/21 09:05 Insulin Glargine (Lantus Syringe) 8 unit QHS SQ 04/05/21 23:00 04/05/21 23:20 Justifications for Admission Other Justification ANN WATKINS MD Apr 06, 2021 13:32
[2021-04-06 16:53] VITALS: BP 106/50
[2021-04-06 16:58] VITALS: BP 110/53
[2021-04-06 17:03] VITALS: BP 111/56
[2021-04-06 18:05] VITALS: BP 115/46
--- NOTE | 2021-04-06 18:25 | NUR ---
The patient, MERRICK ARRIAGA, 80 y/o, F admitted by LAURIE GIBSON MD, was given written information regarding hospital policies, unit procedures and contact persons. Valuables were checked and left in patient room.
[2021-04-06 19:15] VITALS: BP 118/54
[2021-04-06] MEDS: ATORVASTATIN CALCIUM 40 MG TABLET. PO SCH (20:54)
[2021-04-06] MEDS: ACETAMINOPHEN 325 MG TABLET. PO PRN (20:55)
[2021-04-06] MEDS: INSULIN GLARGINE SYRINGE. SQ SCH (21:22)
[2021-04-06 23:00] VITALS: BP 123/49
[2021-04-07 03:00] VITALS: BP 116/60
[2021-04-07 07:00] VITALS: BP 114/51
[2021-04-07 07:33] LABS: CALCIUM 8.4 mg/dL (8.5-10.1); CREATININE 4.7 mg/dL (0.6-1.0); POTASSIUM 5.3 mmol/L (3.5-5.1)
[2021-04-07] MEDS: INSULIN LISPRO 300 UNITS/3 ML VIAL. SQ SCH ×3 (08:00→17:00)
[2021-04-07] MEDS: FERROUS SULFATE 325 MG TABLET. PO SCH ×2 (09:36→17:10)
[2021-04-07] MEDS: LACTOBACILLUS RHAMNOSUS GG 1 CAPSULE. PO SCH ×3 (09:36→20:59)
[2021-04-07] MEDS: cefTRIAXone IV Push 1 GM VIAL. IVP SCH (09:40)
--- NOTE | 2021-04-07 10:22 | PDOC ---
Renal-Progress Notes Subjective Notes Notes NO NEW COMPLAINTS History of Present Illness Hx of present illness STABLE Vitals Vitals Vital Signs Date Time Temp Pulse Resp B/P (MAP) Pulse Ox O2 Delivery O2 Flow Rate FiO2 04/07/21 09:36 83 114/51 04/07/21 07:00 97.9 18 96 Room Air 97.9 Weight Weight [ ] I.O. Intake and Output Intake and Output 04/07/21 07:00 Intake Total 600 ml Output Total 1000 ml Balance -400 ml Intake Oral 600 ml Output Urine Total 1000 ml Labs Labs Laboratory Tests Test 04/06/21 11:19 04/06/21 12:12 04/06/21 17:40 04/06/21 20:01 White Blood Count 8.4 x10^3/uL (4.0-11.0) Red Blood Count 2.21 x10^6/uL (3.50-5.40) Hemoglobin 6.3 g/dL (12.0-15.5) Hematocrit 19.2 % (36.0-47.0) Mean Corpuscular Volume 87 fL (79-100) Mean Corpuscular Hemoglobin 29 pg (25-35) Mean Corpuscular Hemoglobin Concent 33 g/dL (31-37) Red Cell Distribution Width 19.1 % (11.5-14.5) Platelet Count 394 x10^3/uL (140-400) Prothrombin Time 14.8 SEC (11.7-14.0) Prothromb Time International Ratio 1.2 (0.8-1.1) Sodium Level 141 mmol/L (136-145) Potassium Level 4.7 mmol/L (3.5-5.1) Chloride Level 108 mmol/L (98-107) Carbon Dioxide Level 22 mmol/L (21-32) Anion Gap 11 (6-14) Blood Urea Nitrogen 84 mg/dL (7-20) Creatinine 4.8 mg/dL (0.6-1.0) Estimated GFR (Cockcroft-Gault) 8.8 BUN/Creatinine Ratio 18 (6-20) Glucose Level 160 mg/dL (70-99) Calcium Level 8.1 mg/dL (8.5-10.1) Total Bilirubin 0.2 mg/dL (0.2-1.0) Aspartate Amino Transf (AST/SGOT) 8 U/L (15-37) Alanine Aminotransferase (ALT/SGPT) 8 U/L (14-59) Alkaline Phosphatase 81 U/L (46-116) Total Protein 6.7 g/dL (6.4-8.2) Albumin 1.9 g/dL (3.4-5.0) Albumin/Globulin Ratio 0.4 (1.0-1.7) Glucose (Fingerstick) 182 mg/dL (70-99) 116 mg/dL (70-99) 207 mg/dL (70-99) Test 04/07/21 06:20 04/07/21 08:44 Sodium Level 143 mmol/L (136-145) Potassium Level 5.3 mmol/L (3.5-5.1) Chloride Level 111 mmol/L (98-107) Carbon Dioxide Level 19 mmol/L (21-32) Anion Gap 13 (6-14) Blood Urea Nitrogen 77 mg/dL (7-20) Creatinine 4.7 mg/dL (0.6-1.0) Estimated GFR (Cockcroft-Gault) 9.0 Glucose Level 120 mg/dL (70-99) Calcium Level 8.4 mg/dL (8.5-10.1) Creatine Kinase 27 U/L (26-192) Glucose (Fingerstick) 115 mg/dL (70-99) Micro Micro Microbiology 04/05/21 Blood Culture - Preliminary, Resulted NO GROWTH AFTER 1 DAY Review of Systems Constitutional: yes: alert Ears/Nose/Throat: Yes: no symptom reported Eyes: Yes: no symptom reported Pulmonary: Yes no symptom reported Cardiovascular: Yes no symptom reported Gastrointestional: Yes: no symptom reported Genitourinary: Yes: no symptom reported Skin: Yes no symptom reported Psychiatric/Neurological: Yes: no symptom reported Endocrine: Yes: no symptom reported Physical Exam General Appearance: no apparent distress Skin: warm Respiratory: bilateral CTA Heart: S1S2 Abdomen: soft, bowel sounds present Genitourinary: bladder flat Extremities: pulses present Neurology: alert Musculoskeletal: Osteoarthritis Assessment Assessment IMP BOBBY WITH CR OF 5.3 TO 4.7-WAS 3.3-3.5 AND STABLE LAST MONTH-WAS FELT TO BE NEW BASELINE CKD STAGE 3 TO 4 CR OF ABOUT 1.7-1.9 A YEAR AGO HYPERKALEMIA-STABLE URINARY TRACT INFECTION DEHYDRATION-APPEARS COMPENSATED POSS PRETIBIAL AREA CELLULITIS RECENTLY-IMPROVED HYDRONEPHROSIS ANEMIA HX OF PAFIB LABILE HTN DM II PLAN ANTIBIOTICS AVOID NEPHROTOXINS NEEDS UROLOGY EVAL ADEQUATE UO WILL FOLLOW D/W ATTENDING MAY NEED DIALYSIS LABS IN AM LORRIE CHAVIS MD Apr 07, 2021 10:22
[2021-04-07 11:00] VITALS: BP 128/54
[2021-04-07 15:00] VITALS: BP 132/53
[2021-04-07 19:00] VITALS: BP 129/59
--- NOTE | 2021-04-07 19:38 | PDOC ---
GENERAL General: Patient examined chart reviewed today's hospital day 3 for this patient with acute on chronic stage IV renal failure in the setting of bilateral hydron ephrosis and pyelonephritis. She has severe anemia in the setting without obvious blood loss. She is not sure of the timing of her renal failure. She does tell me that she saw urology at and stents were placed several weeks ago she is not sure what happened to those stents. Patient was found to have very significant hydronephrosis that has worsened since her last study. Urology is not yet available here at [place]. Appreciate nephrology support. Somehow repeat labs were not rechecked this morning we will reassess those first thing in the morning. Patient denies any acute issues this evening and has not had any blood loss in the last 24 hours to her knowledge. Urine culture is still pending blood cultures are negative to date. We will continue current management otherwise. Time spent today is 30 minutes with greater than 50% in counseling and coordination of care most of which in discussion with patient regarding care plan and progress. Problems: (1) Acute on chronic renal failure (2) Morbid obesity (3) Debilitated patient (4) UTI (urinary tract infection) (5) Anemia VITAL SIGNS Vital Signs/I&O: Vital Signs Date Time Temp Pulse Resp B/P (MAP) Pulse Ox O2 Delivery O2 Flow Rate FiO2 04/07/21 15:00 97.9 91 18 132/53 (79) 98 Room Air 97.9 I & O 04/06/21 04/06/21 04/07/21 15:00 23:00 07:00 Intake Total 360 ml 240 ml Output Total 1000 ml Balance -640 ml 240 ml In general the patient is pleasant alert and oriented x3 no acute distress resting comfortably in bed HEENT exam is unremarkable for acute abnormality Neck is soft and supple no adenopathy or thyromegaly noted. Chest is clear to auscultation. Heart S1-S2 normal regular rate and rhythm no murmurs or gallops are noted. Abdomen is obese soft nontender nondistended no masses organomegaly noted. Extremity exam is notable for chronic venous stasis dermatitis with very dry skin bilateral onychomycosis of the toenails noted. Pulses are intact throughout ALLERGIES Allergies: Allergies Coded Allergies Type Severity Reaction Last Updated Verified No Known Drug Allergies 04/05/21 No MEDS Medications: Current Medications Medications (Trade) Dose Ordered Sig/Angy Start Time Stop Time Status Last Admin Dose Admin Acetaminophen (Tylenol) 650 mg PRN Q6HRS PRN 04/05/21 19:45 04/06/21 20:55 Amlodipine Besylate (Norvasc) 5 mg DAILY 04/06/21 09:00 04/07/21 09:36 Atorvastatin Calcium (Lipitor) 40 mg QHS 04/05/21 23:00 04/06/21 20:54 Ceftriaxone Sodium (Rocephin) 1 gm DAILY 04/06/21 09:00 04/07/21 09:40 Dextrose (Dextrose 50%-Water Syringe) 12.5 gm PRN Q15MIN PRN 04/05/21 22:30 Ferrous Sulfate (Feosol) 325 mg BIDWMEALS 04/06/21 08:00 04/07/21 17:10 Insulin Glargine (Lantus Syringe) 8 unit QHS 04/05/21 23:00 04/06/21 21:22 Insulin Human Lispro (HumaLOG) 0-7 UNITS TIDWMEALS 04/06/21 08:00 04/07/21 12:30 Lactobacillus Rhamnosus (Culturelle) 1 cap BID 04/06/21 09:00 04/07/21 09:36 Olanzapine (ZyPREXA ZYDIS) 5 mg PRN BID PRN 04/05/21 19:45 Ondansetron HCl (Zofran) 4 mg PRN Q4HRS PRN 04/05/21 19:45 Pantoprazole Sodium (Protonix) 40 mg DAILY07 04/06/21 07:00 04/06/21 07:52 Polyethylene Glycol (miraLAX PACKET) 17 gm PRN DAILY PRN 04/05/21 22:30 Sodium Chloride 1,000 ml @ 75 mls/hr 1X ONCE 04/05/21 19:45 04/06/21 09:04 DC 04/05/21 21:38 LAB Lab: Laboratory Tests Test 04/06/21 20:01 04/07/21 06:20 04/07/21 08:44 04/07/21 11:43 Glucose (Fingerstick) 207 mg/dL (70-99) H 115 mg/dL (70-99) H 207 mg/dL (70-99) H Sodium Level 143 mmol/L (136-145) Potassium Level 5.3 mmol/L (3.5-5.1) H Chloride Level 111 mmol/L (98-107) H Carbon Dioxide Level 19 mmol/L (21-32) L Anion Gap 13 (6-14) Blood Urea Nitrogen 77 mg/dL (7-20) H Creatinine 4.7 mg/dL (0.6-1.0) H Estimated GFR (Cockcroft-Gault) 9.0 Glucose Level 120 mg/dL (70-99) H Calcium Level 8.4 mg/dL (8.5-10.1) L Creatine Kinase 27 U/L (26-192) Test 04/07/21 16:41 Glucose (Fingerstick) 149 mg/dL (70-99) H Laboratory Tests 04/07/21 06:20 ASSESSMENT & PLAN A&P Plan as noted above This note was created using [employer] and may have omissions and/or errors due to the nature of real-time voice jumpbasting lining baster. Justifications for Admission Other Justification Problem Qualifiers (1) UTI (urinary tract infection): Urinary tract infection type: catheter-associated UTI Indwelling urinary catheter type: indwelling urethral catheter Encounter type: initial encounter Qualified Codes: T83.511A - Infection and inflammatory reaction due to indwelling urethral catheter, initial encounter; N39.0 - Urinary tract infection, site not specified CRESCENCIO BYRNES MD Apr 07, 2021 19:38
[2021-04-07] MEDS: ATORVASTATIN CALCIUM 40 MG TABLET. PO SCH (20:09)
[2021-04-07] MEDS: INSULIN GLARGINE SYRINGE. SQ SCH (20:59)
[2021-04-07 23:04] VITALS: BP 122/62
[2021-04-08 03:05] VITALS: BP 108/57
[2021-04-08 05:21] LABS: BASO # 0.1 x10^3/uL (0.0-0.2); BASO % 1 % (0-3); EOS % 12 % (0-3); HEMATOCRIT 22.2 % (36.0-47.0); HEMOGLOBIN 7.3 g/dL (12.0-15.5); LYMPH # 1.1 x10^3/uL (1.0-4.8); LYMPH % 13 % (24-48); MEAN CORPUSCULAR HEMOGLOBIN 28 pg (25-35); MEAN CORPUSCULAR HGB CONC 33 g/dL (31-37); MEAN CORPUSCULAR VOLUME 86 fL (79-100); MONO # 0.6 x10^3/uL (0.0-1.1); MONO % 7 % (0-9); NEUT % 68 % (31-73); PLATELET COUNT 375 x10^3/uL (140-400); RED BLOOD COUNT 2.59 x10^6/uL (3.50-5.40); RED CELL DISTRIBUTION WIDTH 18.6 % (11.5-14.5); WHITE BLOOD COUNT 8.9 x10^3/uL (4.0-11.0)
[2021-04-08 05:31] LABS: ALBUMIN/GLOBULIN RATIO 0.5 (1.0-1.7); CALCIUM 8.2 mg/dL (8.5-10.1); CREATININE 4.1 mg/dL (0.6-1.0); GFR 10.5; POTASSIUM 4.3 mmol/L (3.5-5.1); TOTAL BILIRUBIN 0.3 mg/dL (0.2-1.0); TOTAL PROTEIN 6.2 g/dL (6.4-8.2)
[2021-04-08] MEDS: PANTOPRAZOLE 40 MG TABLET.DR. PO SCH (05:31)
[2021-04-08 07:59] VITALS: BP 125/55
[2021-04-08] MEDS: INSULIN LISPRO 300 UNITS/3 ML VIAL. SQ SCH ×3 (08:00→17:00)
[2021-04-08] MEDS: FERROUS SULFATE 325 MG TABLET. PO SCH ×2 (09:41→18:38)
[2021-04-08] MEDS: cefTRIAXone IV Push 1 GM VIAL. IVP SCH (09:42)
--- NOTE | 2021-04-08 11:05 | PDOC ---
Renal-Progress Notes Subjective Notes Notes NO NEW COMPLAINTS History of Present Illness Hx of present illness STABLE Vitals Vitals Vital Signs Date Time Temp Pulse Resp B/P (MAP) Pulse Ox O2 Delivery O2 Flow Rate FiO2 04/08/21 09:41 93 125/55 04/08/21 07:59 97.7 20 99 Room Air 97.7 Weight Weight [ ] I.O. Intake and Output Intake and Output 04/08/21 07:00 Intake Total 480 ml Output Total 800 ml Balance -320 ml Intake Oral 480 ml Output Urine Total 800 ml Labs Labs Laboratory Tests Test 04/07/21 11:43 04/07/21 16:41 04/07/21 20:47 04/08/21 04:30 Glucose (Fingerstick) 207 mg/dL (70-99) 149 mg/dL (70-99) 137 mg/dL (70-99) White Blood Count 8.9 x10^3/uL (4.0-11.0) Red Blood Count 2.59 x10^6/uL (3.50-5.40) Hemoglobin 7.3 g/dL (12.0-15.5) Hematocrit 22.2 % (36.0-47.0) Mean Corpuscular Volume 86 fL (79-100) Mean Corpuscular Hemoglobin 28 pg (25-35) Mean Corpuscular Hemoglobin Concent 33 g/dL (31-37) Red Cell Distribution Width 18.6 % (11.5-14.5) Platelet Count 375 x10^3/uL (140-400) Neutrophils (%) (Auto) 68 % (31-73) Lymphocytes (%) (Auto) 13 % (24-48) Monocytes (%) (Auto) 7 % (0-9) Eosinophils (%) (Auto) 12 % (0-3) Basophils (%) (Auto) 1 % (0-3) Neutrophils # (Auto) 6.0 x10^3/uL (1.8-7.7) Lymphocytes # (Auto) 1.1 x10^3/uL (1.0-4.8) Monocytes # (Auto) 0.6 x10^3/uL (0.0-1.1) Eosinophils # (Auto) 1.0 x10^3/uL (0.0-0.7) Basophils # (Auto) 0.1 x10^3/uL (0.0-0.2) Sodium Level 141 mmol/L (136-145) Potassium Level 4.3 mmol/L (3.5-5.1) Chloride Level 109 mmol/L (98-107) Carbon Dioxide Level 22 mmol/L (21-32) Anion Gap 10 (6-14) Blood Urea Nitrogen 67 mg/dL (7-20) Creatinine 4.1 mg/dL (0.6-1.0) Estimated GFR (Cockcroft-Gault) 10.5 BUN/Creatinine Ratio 16 (6-20) Glucose Level 114 mg/dL (70-99) Calcium Level 8.2 mg/dL (8.5-10.1) Total Bilirubin 0.3 mg/dL (0.2-1.0) Aspartate Amino Transf (AST/SGOT) 12 U/L (15-37) Alanine Aminotransferase (ALT/SGPT) 11 U/L (14-59) Alkaline Phosphatase 81 U/L (46-116) Total Protein 6.2 g/dL (6.4-8.2) Albumin 2.0 g/dL (3.4-5.0) Albumin/Globulin Ratio 0.5 (1.0-1.7) Test 04/08/21 08:11 Glucose (Fingerstick) 113 mg/dL (70-99) Micro Micro Microbiology 04/05/21 Blood Culture - Preliminary, Resulted NO GROWTH AFTER 2 DAYS Review of Systems Constitutional: yes: alert Ears/Nose/Throat: Yes: no symptom reported Eyes: Yes: no symptom reported Pulmonary: Yes no symptom reported Cardiovascular: Yes no symptom reported Gastrointestional: Yes: no symptom reported Genitourinary: Yes: no symptom reported Skin: Yes no symptom reported Psychiatric/Neurological: Yes: no symptom reported Endocrine: Yes: no symptom reported Physical Exam General Appearance: no apparent distress Skin: warm Respiratory: bilateral CTA Heart: S1S2 Abdomen: soft, bowel sounds present Genitourinary: bladder flat Extremities: pulses present Neurology: alert Musculoskeletal: Osteoarthritis Assessment Assessment IMP BOBBY WITH CR OF 5.3 TO 4.1-WAS 3.3-3.5 AND STABLE LAST MONTH-WAS FELT TO BE NEW BASELINE CKD STAGE 3 TO 4 CR OF ABOUT 1.7-1.9 A YEAR AGO HYPERKALEMIA-STABLE URINARY TRACT INFECTION DEHYDRATION-APPEARS COMPENSATED POSS PRETIBIAL AREA CELLULITIS RECENTLY-IMPROVED HYDRONEPHROSIS ANEMIA HX OF PAFIB LABILE HTN DM II PLAN ANTIBIOTICS AVOID NEPHROTOXINS UROLOGY EVAL ADEQUATE UO WILL FOLLOW D/W ATTENDING MAY NEED DIALYSIS LABS IN AM D/W ATTENDING LORRIE CHAVIS MD Apr 08, 2021 11:05
[2021-04-08 11:36] VITALS: BP 113/54
[2021-04-08 15:00] VITALS: BP 123/54
[2021-04-08] MEDS: FLUCONAZOLE 100 MG TABLET. PO SCH (18:38)
--- NOTE | 2021-04-08 18:38 | PDOC ---
GENERAL General: Patient examined chart reviewed no events overnight noted. She was moved to [address] today. She is looking forward to her 81th birthday tomorrow. I discussed her case with Dr. Hogue and his understanding was that urology is available now here and should be able to see her tomorrow. I put in another consult to Dr. Sanchez or his hobbies and crafts sales representative from [facility]. I had a renal dosed Diflucan for 5 days for the Graciela growing in her urine culture. Appreciate subspecialty support Problems: (1) Debilitated patient (2) Acute on chronic renal failure (3) Morbid obesity (4) Anemia (5) UTI (urinary tract infection) VITAL SIGNS Vital Signs/I&O: Vital Signs Date Time Temp Pulse Resp B/P (MAP) Pulse Ox O2 Delivery O2 Flow Rate FiO2 04/08/21 15:00 97.8 83 18 123/54 (77) 98 Room Air 97.8 I & O 04/07/21 04/07/21 04/08/21 15:00 23:00 07:00 Intake Total 360 ml 120 ml Output Total 800 ml Balance 360 ml -680 ml In general patient is resting comfortably pleasant alert and oriented x3 no acute distress HEENT exam is unremarkable for acute abnormality Chest is clear to auscultation Heart S1-S2 normal regular rate and rhythm no murmurs or gallops are noted Abdomen soft nontender nondistended no masses organomegaly noted Extremity exam is unremarkable for acute abnormality ALLERGIES Allergies: Allergies Coded Allergies Type Severity Reaction Last Updated Verified No Known Drug Allergies 04/05/21 No MEDS Medications: Current Medications Medications (Trade) Dose Ordered Sig/Angy Start Time Stop Time Status Last Admin Dose Admin Acetaminophen (Tylenol) 650 mg PRN Q6HRS PRN 04/05/21 19:45 04/06/21 20:55 Amlodipine Besylate (Norvasc) 5 mg DAILY 04/06/21 09:00 04/08/21 09:41 Atorvastatin Calcium (Lipitor) 40 mg QHS 04/05/21 23:00 04/07/21 20:09 Ceftriaxone Sodium (Rocephin) 1 gm DAILY 04/06/21 09:00 04/08/21 09:42 Dextrose (Dextrose 50%-Water Syringe) 12.5 gm PRN Q15MIN PRN 04/05/21 22:30 Ferrous Sulfate (Feosol) 325 mg BIDWMEALS 1/7/22 08:00 04/08/21 09:41 Fluconazole (Diflucan) 50 mg DAILY 04/08/21 18:00 04/14/21 17:59 Insulin Glargine (Lantus Syringe) 8 unit QHS 04/05/21 23:00 04/07/21 20:59 Insulin Human Lispro (HumaLOG) 0-7 UNITS TIDWMEALS 04/06/21 08:00 04/07/21 12:30 Lactobacillus Rhamnosus (Culturelle) 1 cap BID 04/06/21 09:00 04/07/21 20:59 Olanzapine (ZyPREXA ZYDIS) 5 mg PRN BID PRN 04/05/21 19:45 Ondansetron HCl (Zofran) 4 mg PRN Q4HRS PRN 04/05/21 19:45 Pantoprazole Sodium (Protonix) 40 mg DAILY07 04/06/21 07:00 04/08/21 05:31 Polyethylene Glycol (miraLAX PACKET) 17 gm PRN DAILY PRN 04/05/21 22:30 Sodium Chloride 1,000 ml @ 75 mls/hr 1X ONCE 04/05/21 19:45 04/06/21 09:04 DC 04/05/21 21:38 LAB Lab: Laboratory Tests Test 04/07/21 20:47 04/08/21 04:30 04/08/21 08:11 04/08/21 17:04 Glucose (Fingerstick) 137 mg/dL (70-99) H 113 mg/dL (70-99) H 109 mg/dL (70-99) H White Blood Count 8.9 x10^3/uL (4.0-11.0) Red Blood Count 2.59 x10^6/uL (3.50-5.40) L Hemoglobin 7.3 g/dL (12.0-15.5) L Hematocrit 22.2 % (36.0-47.0) L Mean Corpuscular Volume 86 fL (79-100) Mean Corpuscular Hemoglobin 28 pg (25-35) Mean Corpuscular Hemoglobin Concent 33 g/dL (31-37) Red Cell Distribution Width 18.6 % (11.5-14.5) H Platelet Count 375 x10^3/uL (140-400) Neutrophils (%) (Auto) 68 % (31-73) Lymphocytes (%) (Auto) 13 % (24-48) L Monocytes (%) (Auto) 7 % (0-9) Eosinophils (%) (Auto) 12 % (0-3) H Basophils (%) (Auto) 1 % (0-3) Neutrophils # (Auto) 6.0 x10^3/uL (1.8-7.7) Lymphocytes # (Auto) 1.1 x10^3/uL (1.0-4.8) Monocytes # (Auto) 0.6 x10^3/uL (0.0-1.1) Eosinophils # (Auto) 1.0 x10^3/uL (0.0-0.7) H Basophils # (Auto) 0.1 x10^3/uL (0.0-0.2) Sodium Level 141 mmol/L (136-145) Potassium Level 4.3 mmol/L (3.5-5.1) # Chloride Level 109 mmol/L (98-107) H Carbon Dioxide Level 22 mmol/L (21-32) Anion Gap 10 (6-14) Blood Urea Nitrogen 67 mg/dL (7-20) H Creatinine 4.1 mg/dL (0.6-1.0) H Estimated GFR (Cockcroft-Gault) 10.5 BUN/Creatinine Ratio 16 (6-20) Glucose Level 114 mg/dL (70-99) H Calcium Level 8.2 mg/dL (8.5-10.1) L Total Bilirubin 0.3 mg/dL (0.2-1.0) Aspartate Amino Transferase (AST) 12 U/L (15-37) L Alanine Aminotransferase (ALT) 11 U/L (14-59) L Alkaline Phosphatase 81 U/L (46-116) Total Protein 6.2 g/dL (6.4-8.2) L Albumin 2.0 g/dL (3.4-5.0) L Albumin/Globulin Ratio 0.5 (1.0-1.7) L Laboratory Tests 04/08/21 04:30 Laboratory Tests 04/08/21 04:30 ASSESSMENT & PLAN A&P Plan as noted above This note was created using [employer] and may have omissions and/or errors due to the nature of real-time voice battery tester field. Justifications for Admission Other Justification Problem Qualifiers (1) UTI (urinary tract infection): Urinary tract infection type: catheter-associated UTI Indwelling urinary catheter type: indwelling urethral catheter Encounter type: initial encounter Qualified Codes: T83.511A - Infection and inflammatory reaction due to indwelling urethral catheter, initial encounter; N39.0 - Urinary tract infection, site not specified CRESCENCIO BYRNES MD Apr 08, 2021 18:38
[2021-04-08 19:15] VITALS: BP 120/54
[2021-04-08] MEDS: ATORVASTATIN CALCIUM 40 MG TABLET. PO SCH (21:00)
[2021-04-08] MEDS: LACTOBACILLUS RHAMNOSUS GG 1 CAPSULE. PO SCH (21:00)
[2021-04-08] MEDS: INSULIN GLARGINE SYRINGE. SQ SCH (22:15)
[2021-04-08 23:18] VITALS: BP 121/59
[2021-04-09] MEDS: ACETAMINOPHEN 325 MG TABLET. PO PRN (01:01)
[2021-04-09 03:21] VITALS: BP 124/53
[2021-04-09 06:29] LABS: BASO # 0.1 x10^3/uL (0.0-0.2); BASO % 1 % (0-3); EOS # 1.1 x10^3/uL (0.0-0.7); EOS % 13 % (0-3); HEMATOCRIT 22.2 % (36.0-47.0); HEMOGLOBIN 7.3 g/dL (12.0-15.5); LYMPH # 1.5 x10^3/uL (1.0-4.8); LYMPH % 17 % (24-48); MEAN CORPUSCULAR HEMOGLOBIN 29 pg (25-35); MEAN CORPUSCULAR HGB CONC 33 g/dL (31-37); MEAN CORPUSCULAR VOLUME 87 fL (79-100); MONO # 0.6 x10^3/uL (0.0-1.1); MONO % 7 % (0-9); NEUT # 5.4 x10^3/uL (1.8-7.7); NEUT % 62 % (31-73); PLATELET COUNT 391 x10^3/uL (140-400); RED BLOOD COUNT 2.56 x10^6/uL (3.50-5.40); RED CELL DISTRIBUTION WIDTH 19.2 % (11.5-14.5); WHITE BLOOD COUNT 8.7 x10^3/uL (4.0-11.0)
[2021-04-09] MEDS: PANTOPRAZOLE 40 MG TABLET.DR. PO SCH (06:34)
[2021-04-09 07:07] LABS: ALBUMIN 1.9 g/dL (3.4-5.0); ALBUMIN/GLOBULIN RATIO 0.5 (1.0-1.7); CALCIUM 8.4 mg/dL (8.5-10.1); CREATININE 4.1 mg/dL (0.6-1.0); GFR 10.5; POTASSIUM 4.5 mmol/L (3.5-5.1); TOTAL BILIRUBIN 0.2 mg/dL (0.2-1.0); TOTAL PROTEIN 6.1 g/dL (6.4-8.2)
[2021-04-09 07:15] VITALS: BP 114/55
[2021-04-09] MEDS: INSULIN LISPRO 300 UNITS/3 ML VIAL. SQ SCH ×3 (08:00→17:00)
[2021-04-09] MEDS: FLUCONAZOLE 100 MG TABLET. PO SCH (08:38)
[2021-04-09] MEDS: FERROUS SULFATE 325 MG TABLET. PO SCH ×2 (08:38→17:00)
[2021-04-09] MEDS: LACTOBACILLUS RHAMNOSUS GG 1 CAPSULE. PO SCH ×2 (08:38→21:31)
--- NOTE | 2021-04-09 10:16 | NUR ---
SW following. Discussed with RN. MIGNON verified pt is a SNF resident at [facility] and can return when medically stable. PT/OT being ordered. COVID-19 negative. Urology following. SW will continue to follow.
[2021-04-09 10:37] LABS: % BANDS 4 % (0-9); % EOS 14 % (0-5); % LYMPHS 17 % (24-48); % MONOS 5 % (0-10); % SEGS 60 % (35-66)
[2021-04-09 10:38] LABS: ANISOCYTOSIS SLIGHT; PLT ESTIMATE ADEQUATE (ADEQUATE)
--- NOTE | 2021-04-09 10:43 | PDOC ---
Renal-Progress Notes Subjective Notes Notes NO NEW COMPLAINTS History of Present Illness Hx of present illness NO ACUTE CHANGES Vitals Vitals Vital Signs Date Time Temp Pulse Resp B/P (MAP) Pulse Ox O2 Delivery O2 Flow Rate FiO2 04/09/21 08:38 82 114/55 04/09/21 07:15 97.9 18 97 Room Air 97.9 Weight Weight [ ] I.O. Intake and Output Intake and Output 04/09/21 07:00 Intake Total 360 ml Output Total 1250 ml Balance -890 ml Intake Oral 360 ml Output Urine Total 1250 ml Labs Labs Laboratory Tests Test 04/08/21 17:04 04/08/21 21:50 04/09/21 05:20 04/09/21 07:27 Glucose (Fingerstick) 109 mg/dL (70-99) 130 mg/dL (70-99) 91 mg/dL (70-99) White Blood Count 8.7 x10^3/uL (4.0-11.0) Red Blood Count 2.56 x10^6/uL (3.50-5.40) Hemoglobin 7.3 g/dL (12.0-15.5) Hematocrit 22.2 % (36.0-47.0) Mean Corpuscular Volume 87 fL (79-100) Mean Corpuscular Hemoglobin 29 pg (25-35) Mean Corpuscular Hemoglobin Concent 33 g/dL (31-37) Red Cell Distribution Width 19.2 % (11.5-14.5) Platelet Count 391 x10^3/uL (140-400) Neutrophils (%) (Auto) 62 % (31-73) Lymphocytes (%) (Auto) 17 % (24-48) Monocytes (%) (Auto) 7 % (0-9) Eosinophils (%) (Auto) 13 % (0-3) Basophils (%) (Auto) 1 % (0-3) Neutrophils # (Auto) 5.4 x10^3/uL (1.8-7.7) Lymphocytes # (Auto) 1.5 x10^3/uL (1.0-4.8) Monocytes # (Auto) 0.6 x10^3/uL (0.0-1.1) Eosinophils # (Auto) 1.1 x10^3/uL (0.0-0.7) Basophils # (Auto) 0.1 x10^3/uL (0.0-0.2) Segmented Neutrophils % 60 % (35-66) Band Neutrophils % 4 % (0-9) Lymphocytes % 17 % (24-48) Monocytes % 5 % (0-10) Eosinophils % 14 % (0-5) Platelet Estimate Adequate (ADEQUATE) Anisocytosis Slight Sodium Level 141 mmol/L (136-145) Potassium Level 4.5 mmol/L (3.5-5.1) Chloride Level 109 mmol/L (98-107) Carbon Dioxide Level 22 mmol/L (21-32) Anion Gap 10 (6-14) Blood Urea Nitrogen 62 mg/dL (7-20) Creatinine 4.1 mg/dL (0.6-1.0) Estimated GFR (Cockcroft-Gault) 10.5 BUN/Creatinine Ratio 15 (6-20) Glucose Level 90 mg/dL (70-99) Calcium Level 8.4 mg/dL (8.5-10.1) Total Bilirubin 0.2 mg/dL (0.2-1.0) Aspartate Amino Transf (AST/SGOT) 13 U/L (15-37) Alanine Aminotransferase (ALT/SGPT) 10 U/L (14-59) Alkaline Phosphatase 85 U/L (46-116) Total Protein 6.1 g/dL (6.4-8.2) Albumin 1.9 g/dL (3.4-5.0) Albumin/Globulin Ratio 0.5 (1.0-1.7) Micro Micro Microbiology 04/05/21 Blood Culture - Preliminary, Resulted NO GROWTH AFTER 3 DAYS 04/05/21 Urine Culture - Final, Complete Review of Systems Constitutional: yes: alert Ears/Nose/Throat: Yes: no symptom reported Eyes: Yes: no symptom reported Pulmonary: Yes no symptom reported Cardiovascular: Yes no symptom reported Gastrointestional: Yes: no symptom reported Genitourinary: Yes: no symptom reported Skin: Yes no symptom reported Psychiatric/Neurological: Yes: no symptom reported Endocrine: Yes: no symptom reported Physical Exam General Appearance: no apparent distress Skin: warm Respiratory: bilateral CTA Heart: S1S2 Abdomen: soft, bowel sounds present Genitourinary: bladder flat Extremities: pulses present Neurology: alert Musculoskeletal: Osteoarthritis Assessment Assessment IMP BOBBY WITH CR OF 5.3 TO 4.1-WAS 3.3-3.5 AND STABLE LAST MONTH-WAS FELT TO BE NEW BASELINE CKD STAGE 3 TO 4 CR OF ABOUT 1.7-1.9 A YEAR AGO HYPERKALEMIA-STABLE URINARY TRACT INFECTION DEHYDRATION-APPEARS COMPENSATED POSS PRETIBIAL AREA CELLULITIS RECENTLY-IMPROVED HYDRONEPHROSIS ANEMIA HX OF PAFIB LABILE HTN DM II PLAN ANTIBIOTICS AVOID NEPHROTOXINS UROLOGY EVAL PENDING ADEQUATE UO WILL FOLLOW D/W ATTENDING MAY NEED DIALYSIS LABS IN AM D/W ATTENDING LORRIE CHAVIS MD Apr 09, 2021 10:43
[2021-04-09 11:00] VITALS: BP 109/57
--- NOTE | 2021-04-09 11:18 | PDOC ---
[employer] PROGRESS NOTE Date of Service DOS: DATE: 04/09/21 TIME: 11:13 Chief Complaint Chief Complaint Assessment/Plan 1. Acute Kidney Injury 2. UTI 3. Laceration to head 4. History of: HTN, diabetes type 2, lymphedema, obesity, OA History of Present Illness History of Present Illness 80yo female with PMHx afib, prior DVT/PE, OA, CKD, HTN, DM2 who comes to ED via EMS from her nursing facility [facility] for fall at SNF and abnormal urine and labs. She fell out of bed while her diaper was being changed the night prior to admission, notes she has bruises to left knee, left elbow, left flank scabbed abrasion to left scalp she thinks tore open. She think she had negative imaging prior to transfer to ED. She did not have loss of consciousness. Patient denies neck pain or head pain. Her only complaints are memory difficulties, weakness and debility and gluteal pain Patient does have a Navarro catheter in place and a tunneled single lumen RIJ, she notes since a discharge on 03/06 for debility she had Urology follow up and was admitted to [facility], does not recall most of her stay and does not know why she has a tunneled line in her right chest wall, does not think she is being given meds 04/09: Patient seen and examined Chart reviewed Discussed with RN Discussed with patient about potential placement at SNF Vitals/I&O Vitals/I&O: Vital Signs Date Time Temp Pulse Resp B/P (MAP) Pulse Ox O2 Delivery O2 Flow Rate FiO2 04/09/21 11:00 98.0 80 18 109/57 (74) 96 Room Air 98.0 I & O 04/08/21 04/08/21 04/09/21 15:00 23:00 07:00 Intake Total 360 ml Output Total 1250 ml Balance -890 ml Physical Exam General: Cooperative, No acute distress Heart: Regular rate Lungs: Clear Abdomen: Normal bowel sounds, No tenderness Extremities: No clubbing Skin: No breakdown Labs Labs: Laboratory Tests Test 04/08/21 17:04 04/08/21 21:50 04/09/21 05:20 04/09/21 07:27 Glucose (Fingerstick) 109 mg/dL (70-99) 130 mg/dL (70-99) 91 mg/dL (70-99) White Blood Count 8.7 x10^3/uL (4.0-11.0) Red Blood Count 2.56 x10^6/uL (3.50-5.40) Hemoglobin 7.3 g/dL (12.0-15.5) Hematocrit 22.2 % (36.0-47.0) Mean Corpuscular Volume 87 fL (79-100) Mean Corpuscular Hemoglobin 29 pg (25-35) Mean Corpuscular Hemoglobin Concent 33 g/dL (31-37) Red Cell Distribution Width 19.2 % (11.5-14.5) Platelet Count 391 x10^3/uL (140-400) Neutrophils (%) (Auto) 62 % (31-73) Lymphocytes (%) (Auto) 17 % (24-48) Monocytes (%) (Auto) 7 % (0-9) Eosinophils (%) (Auto) 13 % (0-3) Basophils (%) (Auto) 1 % (0-3) Neutrophils # (Auto) 5.4 x10^3/uL (1.8-7.7) Lymphocytes # (Auto) 1.5 x10^3/uL (1.0-4.8) Monocytes # (Auto) 0.6 x10^3/uL (0.0-1.1) Eosinophils # (Auto) 1.1 x10^3/uL (0.0-0.7) Basophils # (Auto) 0.1 x10^3/uL (0.0-0.2) Segmented Neutrophils % 60 % (35-66) Band Neutrophils % 4 % (0-9) Lymphocytes % 17 % (24-48) Monocytes % 5 % (0-10) Eosinophils % 14 % (0-5) Platelet Estimate Adequate (ADEQUATE) Anisocytosis Slight Sodium Level 141 mmol/L (136-145) Potassium Level 4.5 mmol/L (3.5-5.1) Chloride Level 109 mmol/L (98-107) Carbon Dioxide Level 22 mmol/L (21-32) Anion Gap 10 (6-14) Blood Urea Nitrogen 62 mg/dL (7-20) Creatinine 4.1 mg/dL (0.6-1.0) Estimated GFR (Cockcroft-Gault) 10.5 BUN/Creatinine Ratio 15 (6-20) Glucose Level 90 mg/dL (70-99) Calcium Level 8.4 mg/dL (8.5-10.1) Total Bilirubin 0.2 mg/dL (0.2-1.0) Aspartate Amino Transf (AST/SGOT) 13 U/L (15-37) Alanine Aminotransferase (ALT/SGPT) 10 U/L (14-59) Alkaline Phosphatase 85 U/L (46-116) Total Protein 6.1 g/dL (6.4-8.2) Albumin 1.9 g/dL (3.4-5.0) Albumin/Globulin Ratio 0.5 (1.0-1.7) Assessment and Plan Assessmemt and Plan Problems Medical Problems: (1) Acute renal failure Status: Acute Assessment: 1. Acute Kidney Injury 2. UTI 3. Laceration to head 4. History of: HTN, diabetes type 2, lymphedema, obesity, OA Plan: Home Meds DVT prophylaxis Full Code Encourage PO intake Wound care Comment Review of Relevant I have reviewed the following items edis (where applicable) has been applied. Medications: Current Medications Medications (Trade) Dose Ordered Sig/Angy Route PRN Reason Start Time Stop Time Status Last Admin Dose Admin Fluconazole (Diflucan) 50 mg DAILY PO 04/08/21 18:00 04/14/21 17:59 04/09/21 08:38 Justifications for Admission Other Justification NARCISO SHIELDS III DO Apr 09, 2021 11:18
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
[2021-04-09] MEDS: cefTRIAXone IV Push 1 GM VIAL. IVP SCH (12:00)
--- NOTE | 2021-04-09 15:05 | NUR ---
Figueredo discontinued and new 16F figueredo inserted.
[2021-04-09 15:19] VITALS: BP 112/67
--- NOTE | 2021-04-09 16:06 | RAD ---
Exam Date: 04/09/2021 10:[address] ABDOMEN+PELVIS WO Indication: Reason: bilateral hydronephrosis; BOBBY / Spl. Instructions: / History: . TECHNIQUE: CT examination of the abdomen and pelvis was performed without oral or intravenous contra st. One or more of the following dose reduction techniques were utilized: *Automated exposure control (AEC) *Adjustment of mA and/or kV according to patient size *Use of iterative reconstruction technique *CT scan done according to ALARA, or ALARA/IMAGE GENTLY COMPARISON: Ultrasound from April 06, 2021 FINDINGS: The visualized lung bases are clear. Gallstones and sludge is seen within the gallbladder. The gallbladder is distended up to 10 x 5 cm w ithout definite gallbladder wall thickening or pericholecystic fluid appreciated. There is mild uppe r abdominal and mesenteric fat stranding, particularly around the tail the pancreas, nonspecific and possibly incidental. The liver, spleen, pancreas, and adrenal glands are otherwise normal. There are bilateral ureteral stents in place. Mild to moderate bilateral hydronephrosis is seen. Pa rapelvic renal cysts are not excluded. Renal cortices appear thinned suggesting atrophy. No urinary tract calculi are seen. Urinary bladder is suboptimally evaluated due to underdistention with Navarro catheter in place. Mild fat stranding around the urinary bladder is nonspecific. There is no bowel obstruction or inflammation. The appendix is normal. Mild atherosclerotic calcifications are seen. No lymphadenopathy or ascites is seen. Degenerative changes are seen in the spine. IMPRESSION: Bilateral ureteral stents in place. Mild to moderate bilateral hydronephrosis is seen. Parapelvic r enal cysts are not excluded. No urinary tract calculi seen. Renal atrophy is noted. Urinary bladder is suboptimally evaluated due to underdistention with Navarro catheter in place. Mild fat stranding around the urinary bladder is nonspecific. Mild upper abdominal and mesenteric fat stranding noted, most prominent around the tail of the pancre as. This is nonspecific and can be an incidental finding in asymptomatic patients. However, mesente ritis or acute pancreatitis could have a similar appearance. Clinical correlation is advised. Distended gallbladder with sludge and gallstones. Acute cholecystitis is not excluded. No definite gallbladder wall thickening or pericholecystic fluid is seen, though CT sensitivity for gallbladder p athology is limited. If there is clinical concern for acute cholecystitis, consider further evaluati on with right upper quadrant ultrasound or nuclear medicine hepatobiliary scan. Electronically signed by: Gonzalo Dolan MD (04/09/2021 4:04 PM) [facility]
[2021-04-09 19:40] VITALS: BP 121/54
[2021-04-09] MEDS: ATORVASTATIN CALCIUM 40 MG TABLET. PO SCH (21:31)
[2021-04-09] MEDS: INSULIN GLARGINE SYRINGE. SQ SCH (21:41)
[2021-04-09 22:59] VITALS: BP 124/56
[2021-04-10] VITALS (8 sets, daily range): BP systolic 83–122; BP diastolic 42–63
[2021-04-10 06:08] LABS: CALCIUM 8.3 mg/dL (8.5-10.1); CREATININE 4.2 mg/dL (0.6-1.0); GFR 10.2; POTASSIUM 4.6 mmol/L (3.5-5.1)
[2021-04-10] MEDS: INSULIN LISPRO 300 UNITS/3 ML VIAL. SQ SCH ×3 (08:00→17:00)
[2021-04-10] MEDS: LACTOBACILLUS RHAMNOSUS GG 1 CAPSULE. PO SCH ×2 (08:37→21:23)
[2021-04-10] MEDS: PANTOPRAZOLE 40 MG TABLET.DR. PO SCH (08:38)
[2021-04-10] MEDS: FLUCONAZOLE 100 MG TABLET. PO SCH (08:38)
[2021-04-10] MEDS: FERROUS SULFATE 325 MG TABLET. PO SCH ×2 (08:38→17:48)
--- NOTE | 2021-04-10 10:52 | PDOC ---
Renal-Progress Notes Subjective Notes Notes NO NEW COMPLAINTS History of Present Illness Hx of present illness STABLE Vitals Vitals Vital Signs Date Time Temp Pulse Resp B/P (MAP) Pulse Ox O2 Delivery O2 Flow Rate FiO2 04/10/21 08:38 82 121/63 04/10/21 07:15 98.0 16 95 Room Air 98.0 Weight Weight [ ] I.O. Intake and Output Intake and Output 04/10/21 07:00 Intake Total 960 ml Output Total 1100 ml Balance -140 ml Intake Oral 960 ml Output Urine Total 1100 ml Labs Labs Laboratory Tests Test 04/09/21 11:37 04/09/21 17:03 04/09/21 21:03 04/10/21 04:55 Glucose (Fingerstick) 103 mg/dL (70-99) 118 mg/dL (70-99) 117 mg/dL (70-99) Sodium Level 142 mmol/L (136-145) Potassium Level 4.6 mmol/L (3.5-5.1) Chloride Level 108 mmol/L (98-107) Carbon Dioxide Level 20 mmol/L (21-32) Anion Gap 14 (6-14) Blood Urea Nitrogen 57 mg/dL (7-20) Creatinine 4.2 mg/dL (0.6-1.0) Estimated GFR (Cockcroft-Gault) 10.2 Glucose Level 125 mg/dL (70-99) Calcium Level 8.3 mg/dL (8.5-10.1) Test 04/10/21 07:07 Glucose (Fingerstick) 113 mg/dL (70-99) Micro Micro Microbiology 04/05/21 Blood Culture - Preliminary, Resulted NO GROWTH AFTER 4 DAYS 04/05/21 Urine Culture - Final, Complete Review of Systems Constitutional: yes: alert Ears/Nose/Throat: Yes: no symptom reported Eyes: Yes: no symptom reported Pulmonary: Yes no symptom reported Cardiovascular: Yes no symptom reported Gastrointestional: Yes: no symptom reported Genitourinary: Yes: no symptom reported Skin: Yes no symptom reported Psychiatric/Neurological: Yes: no symptom reported Endocrine: Yes: no symptom reported Physical Exam General Appearance: no apparent distress Skin: warm Respiratory: bilateral CTA Heart: S1S2 Abdomen: soft, bowel sounds present Genitourinary: bladder flat Extremities: pulses present Neurology: alert Musculoskeletal: Osteoarthritis Assessment Assessment IMP BOBBY WITH CR OF 5.3 TO 4.1-WAS 3.3-3.5 AND STABLE LAST MONTH-WAS FELT TO BE NEW BASELINE CKD STAGE 3 TO 4 CR OF ABOUT 1.7-1.9 A YEAR AGO HYPERKALEMIA-STABLE URINARY TRACT INFECTION DEHYDRATION-APPEARS COMPENSATED POSS PRETIBIAL AREA CELLULITIS RECENTLY-IMPROVED HYDRONEPHROSIS-S/P BILATERAL URETERAL STENTS ANEMIA HX OF PAFIB LABILE HTN DM II PLAN NEEDS TO START HD WILL ASK IR FOR TUNNELED HD LINE WILL START HD TOMORROW SW WILL NEED TO SET UP OP HD AT [facility] OR [facility] WILL FOLLOW LORREI CHAVIS MD Apr 10, 2021 10:52
--- NOTE | 2021-04-10 12:17 | PDOC ---
PROGRESS NOTE DATE OF SERVICE: DATE: 04/10/21 TIME: 12:11 CHIEF COMPLAINT: UTI, bilateral hydronephrosis SUBJECTIVE: HPI: Duration: [] Quality: [] Severity: [] Site/Location: [] Problems: Problems Medical Problems: (1) Acute renal failure Status: Acute OBJECTIVE: Vital Signs: Vital Signs Date Time Temp Pulse Resp B/P (MAP) Pulse Ox O2 Delivery O2 Flow Rate FiO2 04/10/21 11:07 97.5 79 18 119/60 (79) 94 Room Air 97.5 04/10/21 08:38 82 121/63 04/10/21 08:00 Room Air 04/10/21 07:15 98.0 82 16 121/63 (82) 95 Room Air 98.0 04/10/21 03:25 98.0 75 16 110/53 (72) 97 Room Air 98.0 04/09/21 22:59 97.9 93 18 124/56 (78) 97 Room Air 97.9 04/09/21 20:00 Room Air 04/09/21 19:40 97.7 90 16 121/54 (76) 99 Room Air 97.7 04/09/21 15:19 98.3 79 18 112/67 (82) 98 Room Air 98.3 I & O Intake and Output 04/10/21 07:00 Intake Total 960 ml Output Total 1100 ml Balance -140 ml Intake Oral 960 ml Output Urine Total 1100 ml PHYSICAL EXAM: Physical Exam: General: Pleasant, no acute distress, well groomed, slightly confused Eyes: conjunctiva anicteric, eyes full range of motion ENT: moist oral mucosa, normal dentition Neck: Trachea midline, no masses Respiratory: unlabored breathing, not using accessory muscles, no crackles or wheezes Abdomen: nontender, nondistended, no hepatosplenomegaly, no masses Skin: no rashes or skin lesions on visualized skin Psych: normal mood, affect. Alert and oriented. : figueredo with clear yellow output LABS: Laboratory Tests Test 04/07/21 16:41 04/07/21 20:47 04/08/21 04:30 04/08/21 08:11 Glucose (Fingerstick) 149 mg/dL (70-99) 137 mg/dL (70-99) 113 mg/dL (70-99) White Blood Count 8.9 x10^3/uL (4.0-11.0) Red Blood Count 2.59 x10^6/uL (3.50-5.40) Hemoglobin 7.3 g/dL (12.0-15.5) Hematocrit 22.2 % (36.0-47.0) Mean Corpuscular Volume 86 fL (79-100) Mean Corpuscular Hemoglobin 28 pg (25-35) Mean Corpuscular Hemoglobin Concent 33 g/dL (31-37) Red Cell Distribution Width 18.6 % (11.5-14.5) Platelet Count 375 x10^3/uL (140-400) Neutrophils (%) (Auto) 68 % (31-73) Lymphocytes (%) (Auto) 13 % (24-48) Monocytes (%) (Auto) 7 % (0-9) Eosinophils (%) (Auto) 12 % (0-3) Basophils (%) (Auto) 1 % (0-3) Neutrophils # (Auto) 6.0 x10^3/uL (1.8-7.7) Lymphocytes # (Auto) 1.1 x10^3/uL (1.0-4.8) Monocytes # (Auto) 0.6 x10^3/uL (0.0-1.1) Eosinophils # (Auto) 1.0 x10^3/uL (0.0-0.7) Basophils # (Auto) 0.1 x10^3/uL (0.0-0.2) Sodium Level 141 mmol/L (136-145) Potassium Level 4.3 mmol/L (3.5-5.1) Chloride Level 109 mmol/L (98-107) Carbon Dioxide Level 22 mmol/L (21-32) Anion Gap 10 (6-14) Blood Urea Nitrogen 67 mg/dL (7-20) Creatinine 4.1 mg/dL (0.6-1.0) Estimated GFR (Cockcroft-Gault) 10.5 BUN/Creatinine Ratio 16 (6-20) Glucose Level 114 mg/dL (70-99) Calcium Level 8.2 mg/dL (8.5-10.1) Total Bilirubin 0.3 mg/dL (0.2-1.0) Aspartate Amino Transf (AST/SGOT) 12 U/L (15-37) Alanine Aminotransferase (ALT/SGPT) 11 U/L (14-59) Alkaline Phosphatase 81 U/L (46-116) Total Protein 6.2 g/dL (6.4-8.2) Albumin 2.0 g/dL (3.4-5.0) Albumin/Globulin Ratio 0.5 (1.0-1.7) Test 04/08/21 17:04 04/08/21 21:50 04/09/21 05:20 04/09/21 07:27 Glucose (Fingerstick) 109 mg/dL (70-99) 130 mg/dL (70-99) 91 mg/dL (70-99) White Blood Count 8.7 x10^3/uL (4.0-11.0) Red Blood Count 2.56 x10^6/uL (3.50-5.40) Hemoglobin 7.3 g/dL (12.0-15.5) Hematocrit 22.2 % (36.0-47.0) Mean Corpuscular Volume 87 fL (79-100) Mean Corpuscular Hemoglobin 29 pg (25-35) Mean Corpuscular Hemoglobin Concent 33 g/dL (31-37) Red Cell Distribution Width 19.2 % (11.5-14.5) Platelet Count 391 x10^3/uL (140-400) Neutrophils (%) (Auto) 62 % (31-73) Lymphocytes (%) (Auto) 17 % (24-48) Monocytes (%) (Auto) 7 % (0-9) Eosinophils (%) (Auto) 13 % (0-3) Basophils (%) (Auto) 1 % (0-3) Neutrophils # (Auto) 5.4 x10^3/uL (1.8-7.7) Lymphocytes # (Auto) 1.5 x10^3/uL (1.0-4.8) Monocytes # (Auto) 0.6 x10^3/uL (0.0-1.1) Eosinophils # (Auto) 1.1 x10^3/uL (0.0-0.7) Basophils # (Auto) 0.1 x10^3/uL (0.0-0.2) Segmented Neutrophils % 60 % (35-66) Band Neutrophils % 4 % (0-9) Lymphocytes % 17 % (24-48) Monocytes % 5 % (0-10) Eosinophils % 14 % (0-5) Platelet Estimate Adequate (ADEQUATE) Anisocytosis Slight Sodium Level 141 mmol/L (136-145) Potassium Level 4.5 mmol/L (3.5-5.1) Chloride Level 109 mmol/L (98-107) Carbon Dioxide Level 22 mmol/L (21-32) Anion Gap 10 (6-14) Blood Urea Nitrogen 62 mg/dL (7-20) Creatinine 4.1 mg/dL (0.6-1.0) Estimated GFR (Cockcroft-Gault) 10.5 BUN/Creatinine Ratio 15 (6-20) Glucose Level 90 mg/dL (70-99) Calcium Level 8.4 mg/dL (8.5-10.1) Total Bilirubin 0.2 mg/dL (0.2-1.0) Aspartate Amino Transf (AST/SGOT) 13 U/L (15-37) Alanine Aminotransferase (ALT/SGPT) 10 U/L (14-59) Alkaline Phosphatase 85 U/L (46-116) Total Protein 6.1 g/dL (6.4-8.2) Albumin 1.9 g/dL (3.4-5.0) Albumin/Globulin Ratio 0.5 (1.0-1.7) Test 04/09/21 11:37 04/09/21 17:03 04/09/21 21:03 04/10/21 04:55 Glucose (Fingerstick) 103 mg/dL (70-99) 118 mg/dL (70-99) 117 mg/dL (70-99) Sodium Level 142 mmol/L (136-145) Potassium Level 4.6 mmol/L (3.5-5.1) Chloride Level 108 mmol/L (98-107) Carbon Dioxide Level 20 mmol/L (21-32) Anion Gap 14 (6-14) Blood Urea Nitrogen 57 mg/dL (7-20) Creatinine 4.2 mg/dL (0.6-1.0) Estimated GFR (Cockcroft-Gault) 10.2 Glucose Level 125 mg/dL (70-99) Calcium Level 8.3 mg/dL (8.5-10.1) Test 04/10/21 07:07 04/10/21 11:36 Glucose (Fingerstick) 113 mg/dL (70-99) 134 mg/dL (70-99) Microbiology 04/05/21 Blood Culture - Preliminary, Resulted NO GROWTH AFTER 4 DAYS 04/05/21 Urine Culture - Final, Complete MEDICATIONS: Current Medications Medications (Trade) Dose Ordered Sig/Angy Start Time Stop Time Status Last Admin Dose Admin Acetaminophen (Tylenol) 650 mg PRN Q6HRS PRN 04/05/21 19:45 04/09/21 01:01 650 MG Amlodipine Besylate (Norvasc) 5 mg DAILY 04/06/21 09:00 04/10/21 08:38 5 MG Atorvastatin Calcium (Lipitor) 40 mg QHS 04/05/21 23:00 04/09/21 21:31 40 MG Ceftriaxone Sodium (Rocephin) 1 gm DAILY 04/06/21 09:00 04/09/21 13:37 DC 04/09/21 12:00 1 GM Dextrose (Dextrose 50%-Water Syringe) 12.5 gm PRN Q15MIN PRN 04/05/21 22:30 Ferrous Sulfate (Feosol) 325 mg BIDWMEALS 04/06/21 08:00 04/10/21 08:38 325 MG Fluconazole (Diflucan) 50 mg DAILY 04/08/21 18:00 04/14/21 17:59 04/10/21 08:38 50 MG Insulin Glargine (Lantus Syringe) 8 unit QHS 04/05/21 23:00 04/09/21 21:41 8 UNIT Insulin Human Lispro (HumaLOG) 0-7 UNITS TIDWMEALS 04/06/21 08:00 04/07/21 12:30 4 UNITS Lactobacillus Rhamnosus (Culturelle) 1 cap BID 04/06/21 09:00 04/10/21 08:37 1 CAP Olanzapine (ZyPREXA ZYDIS) 5 mg PRN BID PRN 04/05/21 19:45 Ondansetron HCl (Zofran) 4 mg PRN Q4HRS PRN 04/05/21 19:45 Pantoprazole Sodium (Protonix) 40 mg DAILY07 04/06/21 07:00 04/10/21 08:38 40 MG Polyethylene Glycol (miraLAX PACKET) 17 gm PRN DAILY PRN 04/05/21 22:30 Sodium Chloride 1,000 ml @ 75 mls/hr 1X ONCE 04/05/21 19:45 04/06/21 09:04 DC 04/05/21 21:38 75 MLS/HR ASSESSMENT & PLAN Assessment/Plan Bilateral hydronephrosis, BOBBY Ucx with +omar. Being treated. Ramon exchanged this AM. Cr now 4.2. Nephrology planning to start dialysis. Tunnel cath today. Pt currently has bilateral stents in place that were apparently placed at . Still waiting on records from . Nurse to reach out again. May have stent reflux, will start patient on oxybutynin for this. Will need to f/u with Urologist--due to have stents exchanged in May per pt report. Problem List: Problems Medical Problems: (1) Acute renal failure Status: Acute JANET MORSE Apr 10, 2021 12:17
[2021-04-10] MEDS ORDERED: LIDOCAINE 1%/EPI 1:100,000 20 ML VIAL. ONE (13:03)
[2021-04-10] MEDS ORDERED: fentaNYL PF VIAL 100 MCG/2 ML VIAL ONE (13:54)
[2021-04-10] MEDS ORDERED: MIDAZOLAM HCL/PF 2 MG/2 ML VIAL. ONE (13:54)
[2021-04-10] MEDS ORDERED: LIDOCAINE 2%/EPI 1:100,000 20 ML VIAL. IJ ONE (14:15)
[2021-04-10] MEDS ORDERED: fentaNYL PF VIAL 100 MCG/2 ML VIAL IV ONE (14:15)
[2021-04-10] MEDS ORDERED: MIDAZOLAM HCL/PF 2 MG/2 ML VIAL. IV ONE (14:15)
[2021-04-10] MEDS ORDERED: LIDOCAINE 1%/EPI 1:100,000 20 ML VIAL. INJ ONE (14:30)
--- NOTE | 2021-04-10 15:53 | RAD ---
EXAMINATION: TUNNELED CENTRAL VENOUS CATHETER PLACEMENT (CPT 87777), with ultrasound guidance for a venous punctu re (CPT 72500), and fluoroscopic guidance, (CPT 26412) Moderate sedation (CPT fill) HISTORY: renal failure Flouroscopy-Radiation exposure: Kerma Air Product (in mGycm2): 1 Contrast: None Isovue 300 IV. SEDATION: Under physician supervision, Versed and fentanyl were administered intravenously for moder ate sedation. Pulse oximetry, heart rate, and BP were continuously monitored by a dedicated qualifie d nurse. The physician spent 15 minutes of [id number] sedation time with the patient. Current history and physical and other medical records are reviewed prior to the procedure. CONSENT: Informed consent was obtained. The risks, benefits, potential complications and alternatives were reviewed and all questions answered. ESTIMATED BLOOD LOSS: Less than 20 mL. COMPLICATIONS: None. PROCEDURE: Prior to beginning the procedure, [place] Protocol was used to confirm the patient's identity and p lanned procedure. Maximum sterile barriers including cap, mask, hand hygiene, sterile gloves, steril e gown, large sterile drape and cutaneous antisepsis were used. The right internal jugular vein was evaluated by ultrasound. An image of the patent vessel was recor ded and saved to PACS. After local anesthetic administration, this vessel was accessed with a microp uncture needle using real-time ultrasound guidance. A guidewire and catheter were then passed centrally using fluoroscopic guidance. The intravascular l ength to the cavoatrial junction was assessed. After infiltrating the skin in the subclavicular region with lidocaine, a short transverse incision w as made and 19 cm length tip to cuff catheter was tunneled to the access site and inserted through a peel-away sheath. The catheter was flushed and secured to the skin. The incision in the lower neck was closed using Dermabond. A sterile dressing was applied. FINDINGS: Ultrasound demonstrates a patent right internal jugular vein. A tunneled central venous cat heter is also in place on the right side. The final fluoroscopic image demonstrates the catheter with its tip at the right atrium. No immediat e complications. IMPRESSION: Successful tunneled catheter placement via the right IJ vein. PLAN: The catheter is ready for immediate use. Electronically signed by: Andrea Marvin MD (04/10/2021 3:50 PM) [id number]
--- NOTE | 2021-04-10 15:53 | RAD ---
EXAMINATION: TUNNELED CENTRAL VENOUS CATHETER PLACEMENT (CPT 90019), with ultrasound guidance for a venous punctu re (CPT 93834), and fluoroscopic guidance, (CPT 67903) Moderate sedation (CPT fill) HISTORY: renal failure Flouroscopy-Radiation exposure: Kerma Air Product (in mGycm2): 1 Contrast: None Isovue 300 IV. SEDATION: Under physician supervision, Versed and fentanyl were administered intravenously for moder ate sedation. Pulse oximetry, heart rate, and BP were continuously monitored by a dedicated qualifie d nurse. The physician spent 15 minutes of kokq-tm-cvew sedation time with the patient. Current history and physical and other medical records are reviewed prior to the procedure. CONSENT: Informed consent was obtained. The risks, benefits, potential complications and alternatives were reviewed and all questions answered. ESTIMATED BLOOD LOSS: Less than 20 mL. COMPLICATIONS: None. PROCEDURE: Prior to beginning the procedure, [place] Protocol was used to confirm the patient's identity and p lanned procedure. Maximum sterile barriers including cap, mask, hand hygiene, sterile gloves, steril e gown, large sterile drape and cutaneous antisepsis were used. The right internal jugular vein was evaluated by ultrasound. An image of the patent vessel was recor ded and saved to PACS. After local anesthetic administration, this vessel was accessed with a microp uncture needle using real-time ultrasound guidance. A guidewire and catheter were then passed centrally using fluoroscopic guidance. The intravascular l ength to the cavoatrial junction was assessed. After infiltrating the skin in the subclavicular region with lidocaine, a short transverse incision w as made and 19 cm length tip to cuff catheter was tunneled to the access site and inserted through a peel-away sheath. The catheter was flushed and secured to the skin. The incision in the lower neck was closed using Dermabond. A sterile dressing was applied. FINDINGS: Ultrasound demonstrates a patent right internal jugular vein. A tunneled central venous cat heter is also in place on the right side. The final fluoroscopic image demonstrates the catheter with its tip at the right atrium. No immediat e complications. IMPRESSION: Successful tunneled catheter placement via the right IJ vein. PLAN: The catheter is ready for immediate use. Electronically signed by: nAdrea Marvin MD (04/10/2021 3:50 PM) [id number]
--- NOTE | 2021-04-10 15:53 | RAD ---
EXAMINATION: TUNNELED CENTRAL VENOUS CATHETER PLACEMENT (CPT 65003), with ultrasound guidance for a venous punctu re (CPT 28073), and fluoroscopic guidance, (CPT 93570) Moderate sedation (CPT fill) HISTORY: renal failure Flouroscopy-Radiation exposure: Kerma Air Product (in mGycm2): 1 Contrast: None Isovue 300 IV. SEDATION: Under physician supervision, Versed and fentanyl were administered intravenously for moder ate sedation. Pulse oximetry, heart rate, and BP were continuously monitored by a dedicated qualifie d nurse. The physician spent 15 minutes of bsqa-pj-pwlj sedation time with the patient. Current history and physical and other medical records are reviewed prior to the procedure. CONSENT: Informed consent was obtained. The risks, benefits, potential complications and alternatives were reviewed and all questions answered. ESTIMATED BLOOD LOSS: Less than 20 mL. COMPLICATIONS: None. PROCEDURE: Prior to beginning the procedure, [place] Protocol was used to confirm the patient's identity and p lanned procedure. Maximum sterile barriers including cap, mask, hand hygiene, sterile gloves, steril e gown, large sterile drape and cutaneous antisepsis were used. The right internal jugular vein was evaluated by ultrasound. An image of the patent vessel was recor ded and saved to PACS. After local anesthetic administration, this vessel was accessed with a microp uncture needle using real-time ultrasound guidance. A guidewire and catheter were then passed centrally using fluoroscopic guidance. The intravascular l ength to the cavoatrial junction was assessed. After infiltrating the skin in the subclavicular region with lidocaine, a short transverse incision w as made and 19 cm length tip to cuff catheter was tunneled to the access site and inserted through a peel-away sheath. The catheter was flushed and secured to the skin. The incision in the lower neck was closed using Dermabond. A sterile dressing was applied. FINDINGS: Ultrasound demonstrates a patent right internal jugular vein. A tunneled central venous cat heter is also in place on the right side. The final fluoroscopic image demonstrates the catheter with its tip at the right atrium. No immediat e complications. IMPRESSION: Successful tunneled catheter placement via the right IJ vein. PLAN: The catheter is ready for immediate use. Electronically signed by: Andrea Marvin MD (04/10/2021 3:50 PM) [id number]
--- NOTE | 2021-04-10 17:54 | PDOC ---
[employer] PROGRESS NOTE Date of Service DOS: DATE: 04/10/21 TIME: 17:53 Chief Complaint Chief Complaint Assessment/Plan 1. Acute Kidney Injury 2. UTI 3. Laceration to head 4. History of: HTN, diabetes type 2, lymphedema, obesity, OA History of Present Illness History of Present Illness 80yo female with PMHx afib, prior DVT/PE, OA, CKD, HTN, DM2 who comes to ED via EMS from her nursing facility [facility] for fall at SNF and abnormal urine and labs. She fell out of bed while her diaper was being changed the night prior to admission, notes she has bruises to left knee, left elbow, left flank scabbed abrasion to left scalp she thinks tore open. She think she had negative imaging prior to transfer to ED. She did not have loss of consciousness. Patient denies neck pain or head pain. Her only complaints are memory difficulties, weakness and debility and gluteal pain Patient does have a Navarro catheter in place and a tunneled single lumen RIJ, she notes since a discharge on 03/06 for debility she had Urology follow up and was admitted to [facility], does not recall most of her stay and does not know why she has a tunneled line in her right chest wall, does not think she is being given meds 04/09: Patient seen and examined Chart reviewed Discussed with RN Discussed with patient about potential placement at SNF 04/10 Patient evaluated examined at bedside. Creatinine still quite elevated. Tunnel cath requested for today and HD tomorrow per nephrology. Continue current plan otherwise. When I saw patient she was resting in bed without much complaint. Vitals/I&O Vitals/I&O: Vital Signs Date Time Temp Pulse Resp B/P (MAP) Pulse Ox O2 Delivery O2 Flow Rate FiO2 04/10/21 15:00 99 97/46 (63) 04/10/21 14:50 Room Air 04/10/21 14:45 97.6 20 94 97.6 04/10/21 14:35 2.0 I & O 04/09/21 04/09/21 04/10/21 15:00 23:00 07:00 Intake Total 600 ml 360 ml 0 ml Output Total 500 ml 600 ml Balance 600 ml -140 ml -600 ml Physical Exam General: Cooperative, No acute distress Heart: Regular rate Lungs: Clear Abdomen: Normal bowel sounds, No tenderness Extremities: No clubbing Skin: No breakdown Labs Labs: Laboratory Tests Test 04/09/21 21:03 04/10/21 04:53 04/10/21 04:55 04/10/21 07:07 Glucose (Fingerstick) 117 mg/dL (70-99) 113 mg/dL (70-99) Hepatitis B Surface Antibody Nonreactive Hepatitis B Core Total Antibody Nonreactive (Nonreactive) Sodium Level 142 mmol/L (136-145) Potassium Level 4.6 mmol/L (3.5-5.1) Chloride Level 108 mmol/L (98-107) Carbon Dioxide Level 20 mmol/L (21-32) Anion Gap 14 (6-14) Blood Urea Nitrogen 57 mg/dL (7-20) Creatinine 4.2 mg/dL (0.6-1.0) Estimated GFR (Cockcroft-Gault) 10.2 Glucose Level 125 mg/dL (70-99) Calcium Level 8.3 mg/dL (8.5-10.1) Test 04/10/21 11:36 04/10/21 17:00 Glucose (Fingerstick) 134 mg/dL (70-99) 125 mg/dL (70-99) Assessment and Plan Assessmemt and Plan Problems Medical Problems: (1) Acute renal failure Status: Acute Comment Review of Relevant I have reviewed the following items edis (where applicable) has been applied. Medications: Current Medications Medications (Trade) Dose Ordered Sig/Angy Route PRN Reason Start Time Stop Time Status Last Admin Dose Admin Midazolam HCl (Versed) 1 mg 1X ONCE IV 04/10/21 14:15 04/10/21 14:16 DC 04/10/21 14:20 Fentanyl Citrate (Fentanyl 2ml Vial) 50 mcg 1X ONCE IV 04/10/21 14:15 04/10/21 14:16 DC 04/10/21 14:20 Cefazolin Sodium/ Dextrose 50 ml @ 100 mls/hr 1X ONCE IV 04/10/21 14:15 04/10/21 14:44 DC 04/10/21 14:21 Lidocaine/ Epinephrine (LIDOCAINE 1%-EPI 1:100,000 Multi-Dose) 18 ml 1X ONCE INJ 04/10/21 14:30 04/10/21 14:31 DC 04/10/21 14:00 Justifications for Admission Other Justification LAURIE SHARMA MD Apr 10, 2021 17:54
[2021-04-10] MEDS: INSULIN GLARGINE SYRINGE. SQ SCH (21:00)
[2021-04-10] MEDS: ATORVASTATIN CALCIUM 40 MG TABLET. PO SCH (21:23)
[2021-04-11 03:24] VITALS: BP 120/57
[2021-04-11] MEDS: PANTOPRAZOLE 40 MG TABLET.DR. PO SCH (05:32)
[2021-04-11 05:37] LABS: HEMATOCRIT 22.3 % (36.0-47.0); HEMOGLOBIN 7.2 g/dL (12.0-15.5); RED BLOOD COUNT 2.58 x10^6/uL (3.50-5.40); RED CELL DISTRIBUTION WIDTH 19.4 % (11.5-14.5); WHITE BLOOD COUNT 8.6 x10^3/uL (4.0-11.0)
[2021-04-11 05:45] LABS: CALCIUM 8.5 mg/dL (8.5-10.1); CREATININE 4.4 mg/dL (0.6-1.0); GFR 9.7; POTASSIUM 4.8 mmol/L (3.5-5.1)
[2021-04-11 07:00] VITALS: BP 111/53
[2021-04-11] MEDS: INSULIN LISPRO 300 UNITS/3 ML VIAL. SQ SCH ×3 (08:00→17:00)
[2021-04-11] MEDS: FLUCONAZOLE 100 MG TABLET. PO SCH (08:18)
[2021-04-11] MEDS: LACTOBACILLUS RHAMNOSUS GG 1 CAPSULE. PO SCH ×2 (08:18→21:36)
[2021-04-11] MEDS: FERROUS SULFATE 325 MG TABLET. PO SCH ×2 (08:18→17:00)
--- NOTE | 2021-04-11 09:03 | PDOC ---
[employer] PROGRESS NOTE Date of Service DOS: DATE: 04/11/21 TIME: 09:00 Chief Complaint Chief Complaint 1. Acute Kidney Injury 2. UTI 3. Laceration to head 4. History of: HTN, diabetes type 2, lymphedema, obesity, OA History of Present Illness History of Present Illness 80yo female with PMHx afib, prior DVT/PE, OA, CKD, HTN, DM2 who comes to ED via EMS from her nursing facility [facility] for fall at [facility] and abnormal urine and labs. She fell out of bed while her diaper was being changed the night prior to admi ssion, notes she has bruises to left knee, left elbow, left flank scabbed abrasion to left scalp she thinks tore open. She think she had negative imaging prior to transfer to ED. She did not have loss of consciousness. Patient denies neck pain or head pain. Her only complaints are memory difficulties, weakness and debility and gluteal pain Patient does have a Navarro catheter in place and a tunneled single lumen RIJ, she notes since a discharge on 03/06 for debility she had Urology follow up and was admitted to [facility], does not recall most of her stay and does not know why she has a tunneled line in her right chest wall, does not think she is being given meds 04/09: Patient seen and examined Chart reviewed Discussed with RN Discussed with patient about potential placement at SNF 04/10 Patient evaluated examined at bedside. Creatinine still quite elevated. Tunnel cath requested for today and HD tomorrow per nephrology. Continue current plan otherwise. When I saw patient she was resting in bed without much complaint. 04/11 Patient seen and examined. Chart Reviewed Discussed with RN Vitals/I&O Vitals/I&O: Vital Signs Date Time Temp Pulse Resp B/P (MAP) Pulse Ox O2 Delivery O2 Flow Rate FiO2 04/11/21 08:19 77 111/53 04/11/21 07:00 97.8 18 98 Room Air 97.8 04/10/21 14:35 2.0 I & O 04/10/21 04/10/21 04/11/21 15:00 23:00 07:00 Intake Total 240 ml 120 ml 120 ml Output Total 500 ml Balance 240 ml -380 ml 120 ml Physical Exam General: Cooperative, No acute distress Heart: Regular rate Lungs: Clear Abdomen: Normal bowel sounds, No tenderness Extremities: No clubbing Skin: No breakdown Labs Labs: Laboratory Tests Test 04/10/21 11:36 04/10/21 17:00 04/10/21 21:19 04/11/21 04:45 Glucose (Fingerstick) 134 mg/dL (70-99) 125 mg/dL (70-99) 111 mg/dL (70-99) White Blood Count 8.6 x10^3/uL (4.0-11.0) Red Blood Count 2.58 x10^6/uL (3.50-5.40) Hemoglobin 7.2 g/dL (12.0-15.5) Hematocrit 22.3 % (36.0-47.0) Mean Corpuscular Volume 86 fL (79-100) Mean Corpuscular Hemoglobin 28 pg (25-35) Mean Corpuscular Hemoglobin Concent 33 g/dL (31-37) Red Cell Distribution Width 19.4 % (11.5-14.5) Platelet Count 380 x10^3/uL (140-400) Sodium Level 142 mmol/L (136-145) Potassium Level 4.8 mmol/L (3.5-5.1) Chloride Level 109 mmol/L (98-107) Carbon Dioxide Level 20 mmol/L (21-32) Anion Gap 13 (6-14) Blood Urea Nitrogen 49 mg/dL (7-20) Creatinine 4.4 mg/dL (0.6-1.0) Estimated GFR (Cockcroft-Gault) 9.7 Glucose Level 84 mg/dL (70-99) Calcium Level 8.5 mg/dL (8.5-10.1) Test 04/11/21 07:05 Glucose (Fingerstick) 102 mg/dL (70-99) Assessment and Plan Assessmemt and Plan Assessment: 1. Acute Kidney Injury 2. UTI 3. Laceration to head 4. History of: HTN, diabetes type 2, lymphedema, obesity, OA Plan: Start dialysis today Trend labs Home meds DVT prophylaxis Full Code Comment Review of Relevant I have reviewed the following items edis (where applicable) has been applied. Medications: Current Medications Medications (Trade) Dose Ordered Sig/Angy Route PRN Reason Start Time Stop Time Status Last Admin Dose Admin Midazolam HCl (Versed) 1 mg 1X ONCE IV 04/10/21 14:15 04/10/21 14:16 DC 04/10/21 14:20 Fentanyl Citrate (Fentanyl 2ml Vial) 50 mcg 1X ONCE IV 04/10/21 14:15 04/10/21 14:16 DC 04/10/21 14:20 Cefazolin Sodium/ Dextrose 50 ml @ 100 mls/hr 1X ONCE IV 04/10/21 14:15 04/10/21 14:44 DC 04/10/21 14:21 Lidocaine/ Epinephrine (LIDOCAINE 1%-EPI 1:100,000 Multi-Dose) 18 ml 1X ONCE INJ 04/10/21 14:30 04/10/21 14:31 DC 04/10/21 14:00 Justifications for Admission Other Justification NARCISO SHIELDS III DO Apr 11, 2021 09:03
--- NOTE | 2021-04-11 10:45 | PDOC ---
PROGRESS NOTE DATE OF SERVICE: DATE: 04/11/21 TIME: 10:42 CHIEF COMPLAINT: UTI, hydronephrosis, chronic ureteral stents SUBJECTIVE: HPI: Duration: [] Quality: [] Severity: [] Site/Location: [] Problems: Problems Medical Problems: (1) Acute renal failure Status: Acute OBJECTIVE: Vital Signs: Vital Signs Date Time Temp Pulse Resp B/P (MAP) Pulse Ox O2 Delivery O2 Flow Rate FiO2 04/11/21 08:19 77 111/53 04/11/21 07:00 97.8 77 18 111/53 (72) 98 Room Air 97.8 04/11/21 03:24 98.1 85 18 120/57 (78) 99 Room Air 98.1 04/10/21 22:51 98.1 85 18 122/59 (80) 99 Room Air 98.1 04/10/21 20:00 Room Air 04/10/21 19:15 98.0 94 18 116/58 (77) 99 Room Air 98.0 04/10/21 15:00 99 97/46 (63) 04/10/21 14:50 Room Air 04/10/21 14:45 97.6 104 20 92/47 (62) 94 Room Air 97.6 04/10/21 14:35 115 27 100 Nasal Cannula 2.0 04/10/21 14:20 18 100 04/10/21 11:07 97.5 79 18 119/60 (79) 94 Room Air 97.5 I & O Intake and Output 04/11/21 07:00 Intake Total 480 ml Output Total 500 ml Balance -20 ml Intake Oral 480 ml Output Urine Total 500 ml PHYSICAL EXAM: Physical Exam: General: Pleasant, no acute distress, well groomed Eyes: conjunctiva anicteric, eyes full range of motion ENT: moist oral mucosa, normal dentition Neck: Trachea midline, no masses Respiratory: unlabored breathing, not using accessory muscles, no crackles or wheezes : figueredo with clear yellow urine output Abdomen: nontender, nondistended, no hepatosplenomegaly, no masses Skin: no rashes or skin lesions on visualized skin Psych: normal mood, affect. Alert and oriented x 3. LABS: Laboratory Tests Test 04/08/21 17:04 04/08/21 21:50 04/09/21 05:20 04/09/21 07:27 Glucose (Fingerstick) 109 mg/dL (70-99) 130 mg/dL (70-99) 91 mg/dL (70-99) White Blood Count 8.7 x10^3/uL (4.0-11.0) Red Blood Count 2.56 x10^6/uL (3.50-5.40) Hemoglobin 7.3 g/dL (12.0-15.5) Hematocrit 22.2 % (36.0-47.0) Mean Corpuscular Volume 87 fL (79-100) Mean Corpuscular Hemoglobin 29 pg (25-35) Mean Corpuscular Hemoglobin Concent 33 g/dL (31-37) Red Cell Distribution Width 19.2 % (11.5-14.5) Platelet Count 391 x10^3/uL (140-400) Neutrophils (%) (Auto) 62 % (31-73) Lymphocytes (%) (Auto) 17 % (24-48) Monocytes (%) (Auto) 7 % (0-9) Eosinophils (%) (Auto) 13 % (0-3) Basophils (%) (Auto) 1 % (0-3) Neutrophils # (Auto) 5.4 x10^3/uL (1.8-7.7) Lymphocytes # (Auto) 1.5 x10^3/uL (1.0-4.8) Monocytes # (Auto) 0.6 x10^3/uL (0.0-1.1) Eosinophils # (Auto) 1.1 x10^3/uL (0.0-0.7) Basophils # (Auto) 0.1 x10^3/uL (0.0-0.2) Segmented Neutrophils % 60 % (35-66) Band Neutrophils % 4 % (0-9) Lymphocytes % 17 % (24-48) Monocytes % 5 % (0-10) Eosinophils % 14 % (0-5) Platelet Estimate Adequate (ADEQUATE) Anisocytosis Slight Sodium Level 141 mmol/L (136-145) Potassium Level 4.5 mmol/L (3.5-5.1) Chloride Level 109 mmol/L (98-107) Carbon Dioxide Level 22 mmol/L (21-32) Anion Gap 10 (6-14) Blood Urea Nitrogen 62 mg/dL (7-20) Creatinine 4.1 mg/dL (0.6-1.0) Estimated GFR (Cockcroft-Gault) 10.5 BUN/Creatinine Ratio 15 (6-20) Glucose Level 90 mg/dL (70-99) Calcium Level 8.4 mg/dL (8.5-10.1) Total Bilirubin 0.2 mg/dL (0.2-1.0) Aspartate Amino Transf (AST/SGOT) 13 U/L (15-37) Alanine Aminotransferase (ALT/SGPT) 10 U/L (14-59) Alkaline Phosphatase 85 U/L (46-116) Total Protein 6.1 g/dL (6.4-8.2) Albumin 1.9 g/dL (3.4-5.0) Albumin/Globulin Ratio 0.5 (1.0-1.7) Test 04/09/21 11:37 04/09/21 17:03 04/09/21 21:03 04/10/21 04:53 Glucose (Fingerstick) 103 mg/dL (70-99) 118 mg/dL (70-99) 117 mg/dL (70-99) Hepatitis B Surface Antibody Nonreactive Hepatitis B Core Total Antibody Nonreactive (Nonreactive) Test 04/10/21 04:55 04/10/21 07:07 04/10/21 11:36 04/10/21 17:00 Sodium Level 142 mmol/L (136-145) Potassium Level 4.6 mmol/L (3.5-5.1) Chloride Level 108 mmol/L (98-107) Carbon Dioxide Level 20 mmol/L (21-32) Anion Gap 14 (6-14) Blood Urea Nitrogen 57 mg/dL (7-20) Creatinine 4.2 mg/dL (0.6-1.0) Estimated GFR (Cockcroft-Gault) 10.2 Glucose Level 125 mg/dL (70-99) Calcium Level 8.3 mg/dL (8.5-10.1) Glucose (Fingerstick) 113 mg/dL (70-99) 134 mg/dL (70-99) 125 mg/dL (70-99) Test 04/10/21 21:19 04/11/21 04:45 04/11/21 07:05 Glucose (Fingerstick) 111 mg/dL (70-99) 102 mg/dL (70-99) White Blood Count 8.6 x10^3/uL (4.0-11.0) Red Blood Count 2.58 x10^6/uL (3.50-5.40) Hemoglobin 7.2 g/dL (12.0-15.5) Hematocrit 22.3 % (36.0-47.0) Mean Corpuscular Volume 86 fL (79-100) Mean Corpuscular Hemoglobin 28 pg (25-35) Mean Corpuscular Hemoglobin Concent 33 g/dL (31-37) Red Cell Distribution Width 19.4 % (11.5-14.5) Platelet Count 380 x10^3/uL (140-400) Sodium Level 142 mmol/L (136-145) Potassium Level 4.8 mmol/L (3.5-5.1) Chloride Level 109 mmol/L (98-107) Carbon Dioxide Level 20 mmol/L (21-32) Anion Gap 13 (6-14) Blood Urea Nitrogen 49 mg/dL (7-20) Creatinine 4.4 mg/dL (0.6-1.0) Estimated GFR (Cockcroft-Gault) 9.7 Glucose Level 84 mg/dL (70-99) Calcium Level 8.5 mg/dL (8.5-10.1) Microbiology 04/05/21 Blood Culture - Final, Complete NO GROWTH AFTER 5 DAYS 04/05/21 Urine Culture - Final, Complete MEDICATIONS: Current Medications Medications (Trade) Dose Ordered Sig/Angy Start Time Stop Time Status Last Admin Dose Admin Acetaminophen (Tylenol) 650 mg PRN Q6HRS PRN 04/05/21 19:45 04/09/21 01:01 650 MG Amlodipine Besylate (Norvasc) 5 mg DAILY 04/06/21 09:00 04/10/21 08:38 5 MG Atorvastatin Calcium (Lipitor) 40 mg QHS 04/05/21 23:00 04/10/21 21:23 40 MG Cefazolin Sodium/ Dextrose 50 ml @ 100 mls/hr 1X ONCE 04/10/21 14:15 04/10/21 14:44 DC 04/10/21 14:21 100 MLS/HR Ceftriaxone Sodium (Rocephin) 1 gm DAILY 04/06/21 09:00 04/09/21 13:37 DC 04/09/21 12:00 1 GM Dextrose (Dextrose 50%-Water Syringe) 12.5 gm PRN Q15MIN PRN 04/05/21 22:30 Fentanyl Citrate (Fentanyl 2ml Vial) 50 mcg 1X ONCE 04/10/21 14:15 04/10/21 14:16 DC 04/10/21 14:20 50 MCG Ferrous Sulfate (Feosol) 325 mg BIDWMEALS 04/06/21 08:00 04/11/21 08:18 325 MG Fluconazole (Diflucan) 50 mg DAILY 04/08/21 18:00 04/14/21 17:59 04/11/21 08:18 50 MG Insulin Glargine (Lantus Syringe) 8 unit QHS 04/05/21 23:00 04/09/21 21:41 8 UNIT Insulin Human Lispro (HumaLOG) 0-7 UNITS TIDWMEALS 04/06/21 08:00 04/07/21 12:30 4 UNITS Lactobacillus Rhamnosus (Culturelle) 1 cap BID 04/06/21 09:00 04/11/21 08:18 1 CAP Lidocaine/ Epinephrine (LIDOCAINE 1%-EPI 1:100,000 Multi-Dose) 18 ml 1X ONCE 04/10/21 14:30 04/10/21 14:31 DC 04/10/21 14:00 18 ML Lidocaine/ Epinephrine (LIDOCAINE 2%-EPI 1:100,000 multi-dose) 13 ml 1X ONCE 04/10/21 14:15 04/10/21 14:23 DC Midazolam HCl (Versed) 1 mg 1X ONCE 04/10/21 14:15 04/10/21 14:16 DC 04/10/21 14:20 1 MG Olanzapine (ZyPREXA ZYDIS) 5 mg PRN BID PRN 04/05/21 19:45 Ondansetron HCl (Zofran) 4 mg PRN Q4HRS PRN 04/05/21 19:45 Pantoprazole Sodium (Protonix) 40 mg DAILY07 04/06/21 07:00 04/11/21 05:32 40 MG Polyethylene Glycol (miraLAX PACKET) 17 gm PRN DAILY PRN 04/05/21 22:30 Sodium Chloride 1,000 ml @ 75 mls/hr 1X ONCE 04/05/21 19:45 04/06/21 09:04 DC 04/05/21 21:38 75 MLS/HR ASSESSMENT & PLAN Bilateral hydronephrosis, BOBBY Ucx with +omar. Being treated. Ramon exchanged this AM. Cr now 4.4. Nephrology planning to start dialysis. Tunnel cath yesterday. Pt currently has bilateral stents in place that were apparently placed at . Still waiting on records from . Nursing is faxing third request today for medical records May have stent reflux, will start patient on oxybutynin for this. Will need to f/u with Urologist--due to have stents exchanged in May per pt report. Pt clear from urology standpoint. Please call if medical records are sent by . Problem List: Problems Medical Problems: (1) Acute renal failure Status: Acute JANET MORSE Apr 11, 2021 10:45
[2021-04-11 11:00] VITALS: BP 111/64
[2021-04-11] MEDS: OXYBUTYNIN CHLORIDE 5 MG TABLET PO SCH ×3 (14:00→21:37)
[2021-04-11 15:00] VITALS: BP 113/54
--- NOTE | 2021-04-11 15:53 | PDOC ---
Renal-Progress Notes Subjective Notes Notes NO NEW COMPLAINTS History of Present Illness Hx of present illness STABLE Vitals Vitals Vital Signs Date Time Temp Pulse Resp B/P (MAP) Pulse Ox O2 Delivery O2 Flow Rate FiO2 04/11/21 15:00 97.5 97 18 113/54 (73) 96 Room Air 97.5 04/10/21 14:35 2.0 Weight Weight [ ] I.O. Intake and Output Intake and Output 04/11/21 07:00 Intake Total 480 ml Output Total 500 ml Balance -20 ml Intake Oral 480 ml Output Urine Total 500 ml Labs Labs Laboratory Tests Test 04/10/21 17:00 04/10/21 21:19 04/11/21 04:45 04/11/21 07:05 Glucose (Fingerstick) 125 mg/dL (70-99) 111 mg/dL (70-99) 102 mg/dL (70-99) White Blood Count 8.6 x10^3/uL (4.0-11.0) Red Blood Count 2.58 x10^6/uL (3.50-5.40) Hemoglobin 7.2 g/dL (12.0-15.5) Hematocrit 22.3 % (36.0-47.0) Mean Corpuscular Volume 86 fL (79-100) Mean Corpuscular Hemoglobin 28 pg (25-35) Mean Corpuscular Hemoglobin Concent 33 g/dL (31-37) Red Cell Distribution Width 19.4 % (11.5-14.5) Platelet Count 380 x10^3/uL (140-400) Sodium Level 142 mmol/L (136-145) Potassium Level 4.8 mmol/L (3.5-5.1) Chloride Level 109 mmol/L (98-107) Carbon Dioxide Level 20 mmol/L (21-32) Anion Gap 13 (6-14) Blood Urea Nitrogen 49 mg/dL (7-20) Creatinine 4.4 mg/dL (0.6-1.0) Estimated GFR (Cockcroft-Gault) 9.7 Glucose Level 84 mg/dL (70-99) Calcium Level 8.5 mg/dL (8.5-10.1) Hepatitis B Surface Antigen Nonreactive (Nonreactive) Test 04/11/21 11:23 Glucose (Fingerstick) 124 mg/dL (70-99) Micro Micro Microbiology 04/05/21 Blood Culture - Final, Complete NO GROWTH AFTER 5 DAYS 04/05/21 Urine Culture - Final, Complete Review of Systems Constitutional: yes: alert Ears/Nose/Throat: Yes: no symptom reported Eyes: Yes: no symptom reported Pulmonary: Yes no symptom reported Cardiovascular: Yes no symptom reported Gastrointestional: Yes: no symptom reported Genitourinary: Yes: no symptom reported Skin: Yes no symptom reported Psychiatric/Neurological: Yes: no symptom reported Endocrine: Yes: no symptom reported Physical Exam General Appearance: no apparent distress Skin: warm Respiratory: bilateral CTA Heart: S1S2 Abdomen: soft, bowel sounds present Genitourinary: bladder flat Extremities: pulses present Neurology: alert Musculoskeletal: Osteoarthritis Assessment Assessment IMP NEW ONSET ESRD HYPERKALEMIA-STABLE URINARY TRACT INFECTION DEHYDRATION-APPEARS COMPENSATED POSS PRETIBIAL AREA CELLULITIS RECENTLY-IMPROVED HYDRONEPHROSIS-S/P BILATERAL URETERAL STENTS ANEMIA HX OF PAFIB LABILE HTN DM II S/P TUNNELED HD CATHETER PLAN NEEDS TO START HD HD TODAY UF TOLERATED SW WILL NEED TO SET UP OP HD AT [facility] OR [facility] WILL FOLLOW LORRIE CHAVIS MD Apr 11, 2021 15:52
[2021-04-11] MEDS ORDERED: IV NORMAL SALINE 1000ML BAG 1,000 ML IV PRN ×2 (17:45)
[2021-04-11] MEDS ORDERED: DIALYSIS PATIENT. MC PRN ×2 (17:45)
[2021-04-11 20:45] VITALS: BP 114/56
[2021-04-11] MEDS: INSULIN GLARGINE SYRINGE. SQ SCH (21:00)
[2021-04-11] MEDS: ATORVASTATIN CALCIUM 40 MG TABLET. PO SCH (21:37)
[2021-04-11 23:00] VITALS: BP 129/60
[2021-04-12 03:00] VITALS: BP 110/60
[2021-04-12 03:30] LABS: BASO # 0.1 x10^3/uL (0.0-0.2); BASO % 1 % (0-3); EOS # 1.2 x10^3/uL (0.0-0.7); EOS % 11 % (0-3); HEMATOCRIT 25.5 % (36.0-47.0); HEMOGLOBIN 8.4 g/dL (12.0-15.5); LYMPH # 1.2 x10^3/uL (1.0-4.8); LYMPH % 11 % (24-48); MEAN CORPUSCULAR HEMOGLOBIN 29 pg (25-35); MEAN CORPUSCULAR HGB CONC 33 g/dL (31-37); MEAN CORPUSCULAR VOLUME 87 fL (79-100); MONO # 0.6 x10^3/uL (0.0-1.1); MONO % 6 % (0-9); NEUT # 7.4 x10^3/uL (1.8-7.7); NEUT % 70 % (31-73); PLATELET COUNT 361 x10^3/uL (140-400); RED BLOOD COUNT 2.93 x10^6/uL (3.50-5.40); RED CELL DISTRIBUTION WIDTH 19.4 % (11.5-14.5); WHITE BLOOD COUNT 10.5 x10^3/uL (4.0-11.0)
[2021-04-12 03:51] LABS: CALCIUM 8.1 mg/dL (8.5-10.1); CREATININE 2.7 mg/dL (0.6-1.0); POTASSIUM 4.1 mmol/L (3.5-5.1)
[2021-04-12] MEDS: PANTOPRAZOLE 40 MG TABLET.DR. PO SCH (05:17)
[2021-04-12 07:00] VITALS: BP 106/55
[2021-04-12] MEDS ORDERED: IV NORMAL SALINE 1000ML BAG 1,000 ML IV PRN ×2 (07:00)
[2021-04-12] MEDS ORDERED: DIALYSIS PATIENT. MC PRN (07:00)
[2021-04-12] MEDS: INSULIN LISPRO 300 UNITS/3 ML VIAL. SQ SCH ×3 (08:00→17:00)
[2021-04-12 11:00] VITALS: BP 101/50
--- NOTE | 2021-04-12 11:19 | PDOC ---
[employer] PROGRESS NOTE Date of Service DOS: DATE: 04/12/21 TIME: 11:13 Chief Complaint Chief Complaint 1. Acute Kidney Injury 2. UTI 3. Laceration to head 4. History of: HTN, diabetes type 2, lymphedema, obesity, OA History of Present Illness History of Present Illness 80yo female with PMHx afib, prior DVT/PE, OA, CKD, HTN, DM2 who comes to ED via EMS from her nursing facility [facility] for fall at [facility] and abnormal urine and labs. She fell out of bed while her diaper was being changed the night prior to admis bernabe, notes she has bruises to left knee, left elbow, left flank scabbed abrasion to left scalp she thinks tore open. She think she had negative imaging prior to transfer to ED. She did not have loss of consciousness. Patient denies neck pain or head pain. Her only complaints are memory difficulties, weakness and debility and gluteal pain Patient does have a Navarro catheter in place and a tunneled single lumen RIJ, she notes since a discharge on 03/06 for debility she had Urology follow up and was admitted to [facility], does not recall most of her stay and does not know why she has a tunneled line in her right chest wall, does not think she is being given meds 04/09: Patient seen and examined Chart reviewed Discussed with RN Discussed with patient about potential placement at SNF 04/10 Patient evaluated examined at bedside. Creatinine still quite elevated. Tunnel cath requested for today and HD tomorrow per nephrology. Continue current plan otherwise. When I saw patient she was resting in bed without much complaint. 04/11 Patient seen and examined. Chart Reviewed Discussed with RN 04/12 Patient evaluated during dialysis. BUN and Creatinine are trending down since starting dialysis. Continue current plan. Chart Reviewed. Discussed with RN. Vitals/I&O Vitals/I&O: Vital Signs Date Time Temp Pulse Resp B/P (MAP) Pulse Ox O2 Delivery O2 Flow Rate FiO2 04/12/21 07:00 97.9 86 14 106/55 (72) 97 Room Air 97.9 I & O 04/11/21 04/11/21 04/12/21 15:00 23:00 07:00 Intake Total 240 ml 300 ml Output Total 550 ml 625 ml Balance -310 ml 300 ml -625 ml Physical Exam General: Cooperative, No acute distress Heart: Regular rate Lungs: Clear Abdomen: Normal bowel sounds, No tenderness Extremities: No clubbing Skin: No breakdown Labs Labs: Laboratory Tests Test 04/11/21 11:23 04/11/21 21:41 04/12/21 02:45 Glucose (Fingerstick) 124 mg/dL (70-99) 98 mg/dL (70-99) White Blood Count 10.5 x10^3/uL (4.0-11.0) Red Blood Count 2.93 x10^6/uL (3.50-5.40) Hemoglobin 8.4 g/dL (12.0-15.5) Hematocrit 25.5 % (36.0-47.0) Mean Corpuscular Volume 87 fL (79-100) Mean Corpuscular Hemoglobin 29 pg (25-35) Mean Corpuscular Hemoglobin Concent 33 g/dL (31-37) Red Cell Distribution Width 19.4 % (11.5-14.5) Platelet Count 361 x10^3/uL (140-400) Neutrophils (%) (Auto) 70 % (31-73) Lymphocytes (%) (Auto) 11 % (24-48) Monocytes (%) (Auto) 6 % (0-9) Eosinophils (%) (Auto) 11 % (0-3) Basophils (%) (Auto) 1 % (0-3) Neutrophils # (Auto) 7.4 x10^3/uL (1.8-7.7) Lymphocytes # (Auto) 1.2 x10^3/uL (1.0-4.8) Monocytes # (Auto) 0.6 x10^3/uL (0.0-1.1) Eosinophils # (Auto) 1.2 x10^3/uL (0.0-0.7) Basophils # (Auto) 0.1 x10^3/uL (0.0-0.2) Sodium Level 138 mmol/L (136-145) Potassium Level 4.1 mmol/L (3.5-5.1) Chloride Level 102 mmol/L (98-107) Carbon Dioxide Level 25 mmol/L (21-32) Anion Gap 11 (6-14) Blood Urea Nitrogen 27 mg/dL (7-20) Creatinine 2.7 mg/dL (0.6-1.0) Estimated GFR (Cockcroft-Gault) 17.0 Glucose Level 124 mg/dL (70-99) Calcium Level 8.1 mg/dL (8.5-10.1) Assessment and Plan Assessmemt and Plan Assessment: 1. Acute Kidney Injury 2. UTI 3. Laceration to head 4. History of: HTN, diabetes type 2, lymphedema, obesity, OA Plan: Dialysis per nephrology Trend labs DVT prophylaxis Full code Encourage PO intake Comment Review of Relevant I have reviewed the following items edis (where applicable) has been applied. Justifications for Admission Other Justification NARCISO SHIELDS III DO Apr 12, 2021 11:19
--- NOTE | 2021-04-12 11:33 | PDOC ---
Renal-Progress Notes Subjective Notes Notes NO NEW COMPLAINTS History of Present Illness Hx of present illness STABLE Vitals Vitals Vital Signs Date Time Temp Pulse Resp B/P (MAP) Pulse Ox O2 Delivery O2 Flow Rate FiO2 04/12/21 07:00 97.9 86 14 106/55 (72) 97 Room Air 97.9 Weight Weight [ ] I.O. Intake and Output Intake and Output 04/12/21 07:00 Intake Total 540 ml Output Total 1175 ml Balance -635 ml Intake Oral 540 ml Output Urine Total 1175 ml # Voids 1 Labs Labs Laboratory Tests Test 04/11/21 21:41 04/12/21 02:45 04/12/21 11:27 Glucose (Fingerstick) 98 mg/dL (70-99) 105 mg/dL (70-99) White Blood Count 10.5 x10^3/uL (4.0-11.0) Red Blood Count 2.93 x10^6/uL (3.50-5.40) Hemoglobin 8.4 g/dL (12.0-15.5) Hematocrit 25.5 % (36.0-47.0) Mean Corpuscular Volume 87 fL (79-100) Mean Corpuscular Hemoglobin 29 pg (25-35) Mean Corpuscular Hemoglobin Concent 33 g/dL (31-37) Red Cell Distribution Width 19.4 % (11.5-14.5) Platelet Count 361 x10^3/uL (140-400) Neutrophils (%) (Auto) 70 % (31-73) Lymphocytes (%) (Auto) 11 % (24-48) Monocytes (%) (Auto) 6 % (0-9) Eosinophils (%) (Auto) 11 % (0-3) Basophils (%) (Auto) 1 % (0-3) Neutrophils # (Auto) 7.4 x10^3/uL (1.8-7.7) Lymphocytes # (Auto) 1.2 x10^3/uL (1.0-4.8) Monocytes # (Auto) 0.6 x10^3/uL (0.0-1.1) Eosinophils # (Auto) 1.2 x10^3/uL (0.0-0.7) Basophils # (Auto) 0.1 x10^3/uL (0.0-0.2) Sodium Level 138 mmol/L (136-145) Potassium Level 4.1 mmol/L (3.5-5.1) Chloride Level 102 mmol/L (98-107) Carbon Dioxide Level 25 mmol/L (21-32) Anion Gap 11 (6-14) Blood Urea Nitrogen 27 mg/dL (7-20) Creatinine 2.7 mg/dL (0.6-1.0) Estimated GFR (Cockcroft-Gault) 17.0 Glucose Level 124 mg/dL (70-99) Calcium Level 8.1 mg/dL (8.5-10.1) Micro Micro Microbiology 04/05/21 Blood Culture - Final, Complete NO GROWTH AFTER 5 DAYS 04/05/21 Urine Culture - Final, Complete Review of Systems Constitutional: yes: alert Ears/Nose/Throat: Yes: no symptom reported Eyes: Yes: no symptom reported Pulmonary: Yes no symptom reported Cardiovascular: Yes no symptom reported Gastrointestional: Yes: no symptom reported Genitourinary: Yes: no symptom reported Skin: Yes no symptom reported Psychiatric/Neurological: Yes: no symptom reported Endocrine: Yes: no symptom reported Physical Exam General Appearance: no apparent distress Skin: warm Respiratory: bilateral CTA Heart: S1S2 Abdomen: soft, bowel sounds present Genitourinary: bladder flat Extremities: pulses present Neurology: alert Musculoskeletal: Osteoarthritis Assessment Assessment IMP NEW ONSET ESRD HYPERKALEMIA-STABLE URINARY TRACT INFECTION DEHYDRATION-APPEARS COMPENSATED POSS PRETIBIAL AREA CELLULITIS RECENTLY-IMPROVED HYDRONEPHROSIS-S/P BILATERAL URETERAL STENTS ANEMIA HX OF PAFIB LABILE HTN DM II S/P TUNNELED HD CATHETER DECONDITIONING PLAN HD TODAY UF TOLERATED OP HD BEING SET UP START EPO CHECK IRON STORES CHECK PO4 START RENAL MVI WOULD BENEFIT FROM THERAPY WILL FOLLOW LORRIE CHAVIS MD Apr 12, 2021 11:33
[2021-04-12] MEDS: FLUCONAZOLE 100 MG TABLET. PO SCH (12:45)
[2021-04-12] MEDS: FOLIC/VIT B COMP W-C (RENAL) TABLET. PO SCH (12:45)
[2021-04-12] MEDS: OXYBUTYNIN CHLORIDE 5 MG TABLET PO SCH ×3 (12:45→21:42)
[2021-04-12] MEDS: LACTOBACILLUS RHAMNOSUS GG 1 CAPSULE. PO SCH ×2 (12:45→21:42)
[2021-04-12] MEDS: FERROUS SULFATE 325 MG TABLET. PO SCH ×2 (12:45→17:41)
--- NOTE | 2021-04-12 13:05 | NUR ---
SW following. Discussed with RN, dialysis referral sent to [facility]. Awaiting chair time. Pt had dialysis again. Per RN, a order department supervisor was visiting with pt. MIGNON will continue to follow. Addendum: 04/13/21 at 1011 by CALOS CROW Chair time arranged for [facility] at 1630 at [facility] (ph: [phone]). Start date Friday04/16/21 at 1600.
[2021-04-12 15:00] VITALS: BP 92/50
[2021-04-12 19:00] VITALS: BP 98/49
[2021-04-12] MEDS: ATORVASTATIN CALCIUM 40 MG TABLET. PO SCH (21:42)
[2021-04-12] MEDS: INSULIN GLARGINE SYRINGE. SQ SCH (21:46)
[2021-04-12 23:00] VITALS: BP 107/60
[2021-04-13 03:00] VITALS: BP 105/60
[2021-04-13] MEDS: PANTOPRAZOLE 40 MG TABLET.DR. PO SCH (06:24)
[2021-04-13 07:00] VITALS: BP 84/52
[2021-04-13] MEDS: FERROUS SULFATE 325 MG TABLET. PO SCH (08:00)
[2021-04-13] MEDS ORDERED: 0.9 % SODIUM CHLORIDE 10 ML DISP.SYRIN. IV PRN ×2 (08:00)
[2021-04-13] MEDS: INSULIN LISPRO 300 UNITS/3 ML VIAL. SQ SCH ×3 (08:00→17:00)
[2021-04-13] MEDS ORDERED: DIALYSIS PATIENT. MC PRN ×2 (08:00)
[2021-04-13] MEDS ORDERED: IV NORMAL SALINE 1000ML BAG 1,000 ML IV PRN ×2 (08:00)
[2021-04-13 08:17] LABS: BASO # 0.1 x10^3/uL (0.0-0.2); BASO % 1 % (0-3); EOS % 12 % (0-3); HEMATOCRIT 25.2 % (36.0-47.0); HEMOGLOBIN 8.2 g/dL (12.0-15.5); LYMPH # 1.2 x10^3/uL (1.0-4.8); LYMPH % 13 % (24-48); MEAN CORPUSCULAR HEMOGLOBIN 28 pg (25-35); MEAN CORPUSCULAR HGB CONC 33 g/dL (31-37); MEAN CORPUSCULAR VOLUME 87 fL (79-100); MONO # 0.8 x10^3/uL (0.0-1.1); MONO % 9 % (0-9); NEUT % 65 % (31-73); PLATELET COUNT 337 x10^3/uL (140-400); RED CELL DISTRIBUTION WIDTH 18.9 % (11.5-14.5); WHITE BLOOD COUNT 9.1 x10^3/uL (4.0-11.0)
[2021-04-13 08:25] LABS: CALCIUM 8.3 mg/dL (8.5-10.1); CREATININE 3.2 mg/dL (0.6-1.0); GFR 13.9; POTASSIUM 4.5 mmol/L (3.5-5.1)
[2021-04-13] MEDS: OXYBUTYNIN CHLORIDE 5 MG TABLET PO SCH ×4 (09:00→21:38)
[2021-04-13] MEDS: FOLIC/VIT B COMP W-C (RENAL) TABLET. PO SCH ×2 (09:00→11:52)
[2021-04-13] MEDS: LACTOBACILLUS RHAMNOSUS GG 1 CAPSULE. PO SCH ×3 (09:00→21:38)
[2021-04-13] MEDS: FLUCONAZOLE 100 MG TABLET. PO SCH ×2 (09:00→11:52)
--- NOTE | 2021-04-13 10:47 | PDOC ---
Renal-Progress Notes Subjective Notes Notes NO NEW COMPLAINTS History of Present Illness Hx of present illness STABLE Vitals Vitals Vital Signs Date Time Temp Pulse Resp B/P (MAP) Pulse Ox O2 Delivery O2 Flow Rate FiO2 04/13/21 08:00 Room Air 04/13/21 07:00 97.7 88 16 84/52 (63) 99 97.7 Weight Weight [ ] I.O. Intake and Output Intake and Output 04/13/21 07:00 Intake Total 300 ml Output Total 125 ml Balance 175 ml Intake Oral 300 ml Output Urine Total 125 ml # Bowel Movements 1 Labs Labs Laboratory Tests Test 04/12/21 11:27 04/12/21 17:10 04/12/21 21:07 04/13/21 06:45 Glucose (Fingerstick) 105 mg/dL (70-99) 125 mg/dL (70-99) 102 mg/dL (70-99) White Blood Count 9.1 x10^3/uL (4.0-11.0) Red Blood Count 2.90 x10^6/uL (3.50-5.40) Hemoglobin 8.2 g/dL (12.0-15.5) Hematocrit 25.2 % (36.0-47.0) Mean Corpuscular Volume 87 fL (79-100) Mean Corpuscular Hemoglobin 28 pg (25-35) Mean Corpuscular Hemoglobin Concent 33 g/dL (31-37) Red Cell Distribution Width 18.9 % (11.5-14.5) Platelet Count 337 x10^3/uL (140-400) Neutrophils (%) (Auto) 65 % (31-73) Lymphocytes (%) (Auto) 13 % (24-48) Monocytes (%) (Auto) 9 % (0-9) Eosinophils (%) (Auto) 12 % (0-3) Basophils (%) (Auto) 1 % (0-3) Neutrophils # (Auto) 6.0 x10^3/uL (1.8-7.7) Lymphocytes # (Auto) 1.2 x10^3/uL (1.0-4.8) Monocytes # (Auto) 0.8 x10^3/uL (0.0-1.1) Eosinophils # (Auto) 1.0 x10^3/uL (0.0-0.7) Basophils # (Auto) 0.1 x10^3/uL (0.0-0.2) Sodium Level 136 mmol/L (136-145) Potassium Level 4.5 mmol/L (3.5-5.1) Chloride Level 100 mmol/L (98-107) Carbon Dioxide Level 29 mmol/L (21-32) Anion Gap 7 (6-14) Blood Urea Nitrogen 21 mg/dL (7-20) Creatinine 3.2 mg/dL (0.6-1.0) Estimated GFR (Cockcroft-Gault) 13.9 Glucose Level 103 mg/dL (70-99) Calcium Level 8.3 mg/dL (8.5-10.1) Phosphorus Level 4.0 mg/dL (2.6-4.7) Test 04/13/21 07:49 Glucose (Fingerstick) 105 mg/dL (70-99) Micro Micro Microbiology 04/05/21 Blood Culture - Final, Complete NO GROWTH AFTER 5 DAYS 04/05/21 Urine Culture - Final, Complete Review of Systems Constitutional: yes: alert Ears/Nose/Throat: Yes: no symptom reported Eyes: Yes: no symptom reported Pulmonary: Yes no symptom reported Cardiovascular: Yes no symptom reported Gastrointestional: Yes: no symptom reported Genitourinary: Yes: no symptom reported Skin: Yes no symptom reported Psychiatric/Neurological: Yes: no symptom reported Endocrine: Yes: no symptom reported Physical Exam General Appearance: no apparent distress Skin: warm Respiratory: bilateral CTA Heart: S1S2 Abdomen: soft, bowel sounds present Genitourinary: bladder flat Extremities: pulses present Neurology: alert Musculoskeletal: Osteoarthritis Assessment Assessment IMP NEW ONSET ESRD HYPERKALEMIA-STABLE URINARY TRACT INFECTION DEHYDRATION-APPEARS COMPENSATED POSS PRETIBIAL AREA CELLULITIS RECENTLY-IMPROVED HYDRONEPHROSIS-S/P BILATERAL URETERAL STENTS ANEMIA HX OF PAFIB LABILE HTN DM II S/P TUNNELED HD CATHETER DECONDITIONING PLAN HD TODAY UF TOLERATED OP HD BEING SET UP START EPO IV VENOFER START RENAL MVI WOULD BENEFIT FROM THERAPY WILL FOLLOW LORRIE CHAVIS MD Apr 13, 2021 10:47
[2021-04-13] MEDS ORDERED: IRON SUCROSE COMPLEX 500 MG in IV NORMAL SALINE 250ML 250 ML IV ONE (11:00)
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
[2021-04-13 15:00] VITALS: BP 93/56
[2021-04-13 19:00] VITALS: BP 85/54
[2021-04-13] MEDS: ATORVASTATIN CALCIUM 40 MG TABLET. PO SCH (21:38)
[2021-04-13] MEDS: EPOETIN ALFA-EPBX for ESRD 20,000 UNIT/ML VIAL. SQ SCH (21:40)
[2021-04-13] MEDS: INSULIN GLARGINE SYRINGE. SQ SCH (21:47)
[2021-04-13 23:06] VITALS: BP 92/46
[2021-04-14] VITALS (9 sets, daily range): BP systolic 74–113; BP diastolic 24–58
[2021-04-14] MEDS: PANTOPRAZOLE 40 MG TABLET.DR. PO SCH (06:20)
[2021-04-14 07:27] LABS: CALCIUM 8.2 mg/dL (8.5-10.1); CREATININE 3.5 mg/dL (0.6-1.0); GFR 12.6
[2021-04-14 07:37] LABS: BASO # 0.2 x10^3/uL (0.0-0.2); BASO % 1 % (0-3); EOS # 1.4 x10^3/uL (0.0-0.7); EOS % 11 % (0-3); HEMOGLOBIN 7.8 g/dL (12.0-15.5); LYMPH # 1.6 x10^3/uL (1.0-4.8); LYMPH % 12 % (24-48); MEAN CORPUSCULAR HEMOGLOBIN 29 pg (25-35); MEAN CORPUSCULAR HGB CONC 33 g/dL (31-37); MEAN CORPUSCULAR VOLUME 88 fL (79-100); MONO # 1.2 x10^3/uL (0.0-1.1); MONO % 9 % (0-9); NEUT # 8.6 x10^3/uL (1.8-7.7); NEUT % 67 % (31-73); PLATELET COUNT 282 x10^3/uL (140-400); POTASSIUM 4.2 mmol/L (3.5-5.1); RED BLOOD COUNT 2.75 x10^6/uL (3.50-5.40); RED CELL DISTRIBUTION WIDTH 19.4 % (11.5-14.5); WHITE BLOOD COUNT 12.9 x10^3/uL (4.0-11.0)
[2021-04-14] MEDS: INSULIN LISPRO 300 UNITS/3 ML VIAL. SQ SCH ×3 (08:00→17:00)
[2021-04-14] MEDS: FOLIC/VIT B COMP W-C (RENAL) TABLET. PO SCH (09:41)
[2021-04-14] MEDS: OXYBUTYNIN CHLORIDE 5 MG TABLET PO SCH ×3 (09:41→21:57)
[2021-04-14] MEDS: LACTOBACILLUS RHAMNOSUS GG 1 CAPSULE. PO SCH ×2 (09:41→21:56)
[2021-04-14] MEDS: FLUCONAZOLE 100 MG TABLET. PO SCH (09:42)
[2021-04-14] MEDS ORDERED: IV NORMAL SALINE 500ML BAG 500 ML IV ONE (11:15)
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
[2021-04-14] MEDS: ATORVASTATIN CALCIUM 40 MG TABLET. PO SCH (21:56)
[2021-04-14] MEDS: INSULIN GLARGINE SYRINGE. SQ SCH (22:07)
[2021-04-15 03:00] VITALS: BP 101/45
[2021-04-15] MEDS: PANTOPRAZOLE 40 MG TABLET.DR. PO SCH (06:27)
[2021-04-15 07:00] VITALS: BP 106/52
[2021-04-15 07:50] LABS: BASO # 0.1 x10^3/uL (0.0-0.2); BASO % 1 % (0-3); EOS # 0.8 x10^3/uL (0.0-0.7); EOS % 9 % (0-3); HEMATOCRIT 22.1 % (36.0-47.0); HEMOGLOBIN 7.4 g/dL (12.0-15.5); LYMPH # 1.1 x10^3/uL (1.0-4.8); LYMPH % 13 % (24-48); MEAN CORPUSCULAR HEMOGLOBIN 30 pg (25-35); MEAN CORPUSCULAR HGB CONC 34 g/dL (31-37); MEAN CORPUSCULAR VOLUME 89 fL (79-100); MONO # 0.7 x10^3/uL (0.0-1.1); MONO % 9 % (0-9); NEUT # 5.9 x10^3/uL (1.8-7.7); NEUT % 68 % (31-73); PLATELET COUNT 310 x10^3/uL (140-400); RED CELL DISTRIBUTION WIDTH 19.2 % (11.5-14.5); WHITE BLOOD COUNT 8.7 x10^3/uL (4.0-11.0)
[2021-04-15] MEDS: INSULIN LISPRO 300 UNITS/3 ML VIAL. SQ SCH ×3 (08:00→17:00)
[2021-04-15 08:12] LABS: CALCIUM 7.9 mg/dL (8.5-10.1); CREATININE 4.4 mg/dL (0.6-1.0); GFR 9.7; POTASSIUM 3.9 mmol/L (3.5-5.1)
[2021-04-15] MEDS: LACTOBACILLUS RHAMNOSUS GG 1 CAPSULE. PO SCH ×2 (08:52→22:50)
[2021-04-15] MEDS: OXYBUTYNIN CHLORIDE 5 MG TABLET PO SCH ×3 (08:52→22:50)
[2021-04-15] MEDS: ACETAMINOPHEN 325 MG TABLET. PO PRN ×2 (08:53→22:51)
[2021-04-15] MEDS: FOLIC/VIT B COMP W-C (RENAL) TABLET. PO SCH (08:53)
[2021-04-15 11:00] VITALS: BP 91/36
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
[2021-04-15 15:00] VITALS: BP 107/36
[2021-04-15 19:00] VITALS: BP 93/49
[2021-04-15] MEDS: INSULIN GLARGINE SYRINGE. SQ SCH (21:00)
[2021-04-15] MEDS: ATORVASTATIN CALCIUM 40 MG TABLET. PO SCH (21:00)
[2021-04-15] MEDS: HEPARIN for SUB-Q USE 5,000 UNIT/ML VIAL. SQ SCH (22:00)
[2021-04-15 23:00] VITALS: BP 93/46
[2021-04-16 03:25] VITALS: BP_SYST 110; BP_SYST 114; BP_DIAS 53; BP_DIAS 54
[2021-04-16] MEDS: ACETAMINOPHEN 325 MG TABLET. PO PRN (06:10)
[2021-04-16] MEDS: HEPARIN for SUB-Q USE 5,000 UNIT/ML VIAL. SQ SCH ×3 (06:12→21:59)
[2021-04-16 07:00] VITALS: BP 101/52
[2021-04-16 07:07] LABS: BASO # 0.1 x10^3/uL (0.0-0.2); BASO % 1 % (0-3); EOS # 0.7 x10^3/uL (0.0-0.7); EOS % 10 % (0-3); HEMATOCRIT 22.6 % (36.0-47.0); HEMOGLOBIN 7.2 g/dL (12.0-15.5); LYMPH # 1.2 x10^3/uL (1.0-4.8); LYMPH % 16 % (24-48); MEAN CORPUSCULAR HEMOGLOBIN 29 pg (25-35); MEAN CORPUSCULAR HGB CONC 32 g/dL (31-37); MEAN CORPUSCULAR VOLUME 89 fL (79-100); MONO # 0.6 x10^3/uL (0.0-1.1); MONO % 8 % (0-9); NEUT # 4.8 x10^3/uL (1.8-7.7); NEUT % 65 % (31-73); PLATELET COUNT 312 x10^3/uL (140-400); RED BLOOD COUNT 2.54 x10^6/uL (3.50-5.40); RED CELL DISTRIBUTION WIDTH 19.2 % (11.5-14.5); WHITE BLOOD COUNT 7.5 x10^3/uL (4.0-11.0)
[2021-04-16 07:20] LABS: PROTHROMBIN TIME PATIENT 14.2 SEC (11.7-14.0)
[2021-04-16 07:36] LABS: ALBUMIN/GLOBULIN RATIO 0.5 (1.0-1.7); GFR 8.3; POTASSIUM 3.6 mmol/L (3.5-5.1); TOTAL BILIRUBIN 0.3 mg/dL (0.2-1.0); TOTAL PROTEIN 6.2 g/dL (6.4-8.2)
[2021-04-16] MEDS: INSULIN LISPRO 300 UNITS/3 ML VIAL. SQ SCH ×3 (08:00→17:00)
[2021-04-16] MEDS ORDERED: DIALYSIS PATIENT. MC PRN ×2 (08:00)
[2021-04-16] MEDS: PANTOPRAZOLE 40 MG TABLET.DR. PO SCH (09:45)
[2021-04-16] MEDS: LACTOBACILLUS RHAMNOSUS GG 1 CAPSULE. PO SCH ×2 (09:45→21:52)
[2021-04-16] MEDS: OXYBUTYNIN CHLORIDE 5 MG TABLET PO SCH ×3 (09:45→21:52)
--- NOTE | 2021-04-16 11:20 | PDOC ---
DATE OF SERVICE DATE: 04/16/21 TIME: 11:14 SUBJECTIVE ROS Seen during dialysis No complaints OBJECTIVE Vital Signs Vital Signs Date Time Temp Pulse Resp B/P (MAP) Pulse Ox O2 Delivery O2 Flow Rate FiO2 04/16/21 08:00 Nasal Cannula 2.0 04/16/21 07:00 98.2 85 18 101/52 (68) 95 98.2 I & 0 Intake and Output 04/16/21 06:59 Intake Total 480 ml Output Total 1100 ml Balance -620 ml Intake Oral 480 ml Output Urine Total 1100 ml # Voids 1 PHYSICAL EXAM Physical Exam General Appearance: no apparent distress Skin: warm Respiratory: bilateral CTA Heart: S1S2 Abdomen: soft, bowel sounds present Genitourinary: No figueredo Extremities: pulses present Neurology: alert Musculoskeletal: Osteoarthritis DIAGNOSIS/ASSESSMENT Assessment & Plan New Onset ESRD- 4th dialysis treatment today. Seen during treatment , tolerating well. Continue as ordered. Mustapha MANDUJANO Access Tunneled [facility] . OP chair arranged MWF per SW note - starting 04/16 Hyperkalemia - K normal today UTI Anemia - On BEATRICE ,Recd IV Venofer HTN- currently Low normal DM II DC per Primary COMMENT/RELEVANT DATA Meds Current Medications Medications (Trade) Dose Ordered Sig/Angy Start Time Stop Time Status Last Admin Dose Admin Acetaminophen (Tylenol) 650 mg PRN Q6HRS PRN 04/05/21 19:45 04/16/21 06:10 650 MG Amlodipine Besylate (Norvasc) 5 mg DAILY 04/06/21 09:00 04/15/21 08:53 5 MG Atorvastatin Calcium (Lipitor) 40 mg QHS 04/05/21 23:00 04/15/21 21:00 40 MG Cefazolin Sodium/ Dextrose 50 ml @ 100 mls/hr 1X ONCE 04/10/21 14:15 04/10/21 14:44 DC 04/10/21 14:21 100 MLS/HR Ceftriaxone Sodium (Rocephin) 1 gm DAILY 04/06/21 09:00 04/09/21 13:37 DC 04/09/21 12:00 1 GM Dextrose (Dextrose 50%-Water Syringe) 12.5 gm PRN Q15MIN PRN 04/05/21 22:30 Epoetin Romulo-epbx (RETACRIT for ESRD PTS) 10,000 unit MoWeFr@2100 04/13/21 21:00 04/13/21 21:40 10,000 UNIT Fentanyl Citrate (Fentanyl 2ml Vial) 50 mcg 1X ONCE 04/10/21 14:15 04/10/21 14:16 DC 04/10/21 14:20 50 MCG Ferrous Sulfate (Feosol) 325 mg BIDWMEALS 04/06/21 08:00 04/13/21 10:48 DC 04/12/21 17:41 325 MG Fluconazole (Diflucan) 50 mg DAILY 04/08/21 18:00 04/14/21 17:59 DC 04/14/21 09:42 50 MG Heparin Sodium (Porcine) (Heparin Sodium) 5,000 unit Q8HRS 04/15/21 22:00 04/16/21 06:12 5,000 UNIT Info (PHARMACY MONITORING -- do not chart) 1 each PRN DAILY PRN 04/16/21 08:00 Insulin Glargine (Lantus Syringe) 8 unit QHS 04/05/21 23:00 04/15/21 21:00 8 UNIT Insulin Human Lispro (HumaLOG) 0-7 UNITS TIDWMEALS 04/06/21 08:00 04/15/21 12:18 4 UNITS Iron Sucrose 500 mg/Sodium Chloride 275 ml @ 78.571 mls/ hr 1X ONCE 04/13/21 11:00 04/13/21 14:29 DC 04/13/21 11:53 78.571 MLS/HR Lactobacillus Rhamnosus (Culturelle) 1 cap BID 04/06/21 09:00 04/15/21 22:50 1 CAP Lidocaine/ Epinephrine (LIDOCAINE 1%-EPI 1:100,000 Multi-Dose) 18 ml 1X ONCE 04/10/21 14:30 04/10/21 14:31 DC 04/10/21 14:00 18 ML Lidocaine/ Epinephrine (LIDOCAINE 2%-EPI 1:100,000 multi-dose) 13 ml 1X ONCE 04/10/21 14:15 04/10/21 14:23 DC Midazolam HCl (Versed) 1 mg 1X ONCE 04/10/21 14:15 04/10/21 14:16 DC 04/10/21 14:20 1 MG Olanzapine (ZyPREXA ZYDIS) 5 mg PRN BID PRN 04/05/21 19:45 Ondansetron HCl (Zofran) 4 mg PRN Q4HRS PRN 04/05/21 19:45 Oxybutynin Chloride (Ditropan) 5 mg TFH226 04/11/21 11:00 04/15/21 22:50 5 MG Pantoprazole Sodium (Protonix) 40 mg DAILY07 04/06/21 07:00 04/15/21 06:27 40 MG Polyethylene Glycol (miraLAX PACKET) 17 gm PRN DAILY PRN 04/05/21 22:30 Sodium Chloride 500 ml @ 500 mls/hr 1X ONCE 04/14/21 11:15 04/14/21 12:14 DC 04/14/21 11:15 500 MLS/HR Sodium Chloride (Normal Saline Flush) 10 ml 1X PRN PRN 04/13/21 08:00 04/14/21 07:59 DC Vitamin B Complex/ Vitamin C (Eugenia-Randy) 1 tab DAILY 04/12/21 12:00 04/15/21 08:53 1 TAB Lab Laboratory Tests Test 04/15/21 11:17 04/15/21 17:41 04/15/21 20:56 04/16/21 06:15 Glucose (Fingerstick) 222 mg/dL (70-99) 113 mg/dL (70-99) 130 mg/dL (70-99) White Blood Count 7.5 x10^3/uL (4.0-11.0) Red Blood Count 2.54 x10^6/uL (3.50-5.40) Hemoglobin 7.2 g/dL (12.0-15.5) Hematocrit 22.6 % (36.0-47.0) Mean Corpuscular Volume 89 fL (79-100) Mean Corpuscular Hemoglobin 29 pg (25-35) Mean Corpuscular Hemoglobin Concent 32 g/dL (31-37) Red Cell Distribution Width 19.2 % (11.5-14.5) Platelet Count 312 x10^3/uL (140-400) Neutrophils (%) (Auto) 65 % (31-73) Lymphocytes (%) (Auto) 16 % (24-48) Monocytes (%) (Auto) 8 % (0-9) Eosinophils (%) (Auto) 10 % (0-3) Basophils (%) (Auto) 1 % (0-3) Neutrophils # (Auto) 4.8 x10^3/uL (1.8-7.7) Lymphocytes # (Auto) 1.2 x10^3/uL (1.0-4.8) Monocytes # (Auto) 0.6 x10^3/uL (0.0-1.1) Eosinophils # (Auto) 0.7 x10^3/uL (0.0-0.7) Basophils # (Auto) 0.1 x10^3/uL (0.0-0.2) Prothrombin Time 14.2 SEC (11.7-14.0) Prothromb Time International Ratio 1.1 (0.8-1.1) Sodium Level 139 mmol/L (136-145) Potassium Level 3.6 mmol/L (3.5-5.1) Chloride Level 103 mmol/L (98-107) Carbon Dioxide Level 26 mmol/L (21-32) Anion Gap 10 (6-14) Blood Urea Nitrogen 36 mg/dL (7-20) Creatinine 5.0 mg/dL (0.6-1.0) Estimated GFR (Cockcroft-Gault) 8.3 BUN/Creatinine Ratio 7 (6-20) Glucose Level 94 mg/dL (70-99) Calcium Level 8.0 mg/dL (8.5-10.1) Total Bilirubin 0.3 mg/dL (0.2-1.0) Aspartate Amino Transf (AST/SGOT) 14 U/L (15-37) Alanine Aminotransferase (ALT/SGPT) 9 U/L (14-59) Alkaline Phosphatase 87 U/L (46-116) Total Protein 6.2 g/dL (6.4-8.2) Albumin 2.0 g/dL (3.4-5.0) Albumin/Globulin Ratio 0.5 (1.0-1.7) Test 04/16/21 07:27 Glucose (Fingerstick) 100 mg/dL (70-99) Results All relevant outside records, renal labs, imaging studies, telemetry/EKG's were reviewed. Justicifation of Admission Dx: Justifications for Admission: Justification of Admission Dx: Yes Acute Renal Failure: RF Can't Be Managed Outpt Chronic Renal Failure: Renail Failure MEREDITH CULP MD Apr 16, 2021 11:20
--- NOTE | 2021-04-16 11:28 | PDOC ---
[employer] PROGRESS NOTE Date of Service DOS: DATE: 04/16/21 TIME: 11:25 Chief Complaint Chief Complaint 1. Acute Kidney Injury 2. Hypotension 3. UTI 4. Laceration to head 5. History of: HTN, diabetes type 2, lymphedema, obesity, OA History of Present Illness History of Present Illness 80yo female with PMHx afib, prior DVT/PE, OA, CKD, HTN, DM2 who comes to ED via EMS from her nursing facility [facility] for fall at [facility] and abnormal urine and labs. She fell out of bed while her diaper was being changed the night prior to admission, notes she has bruises to left knee, left elbow, left flank scabbed abrasion to left scalp she thinks tore open. She think she had negative imaging prior to transfer to ED. She did not have loss of consciousness. Patient denies neck pain or head pain. Her only complaints are memory difficulties, weakness and debility and gluteal pain Patient does have a Navarro catheter in place and a tunneled single lumen RIJ, she notes since a discharge on 03/06 for debility she had Urology follow up and was admitted to [facility], does not recall most of her stay and does not know why she has a tunneled line in her right chest wall, does not think she is being given meds 04/09: Patient seen and examined Chart reviewed Discussed with RN Discussed with patient about potential placement at SNF 04/10 Patient evaluated examined at bedside. Creatinine still quite elevated. Tunnel cath requested for today and HD tomorrow per nephrology. Continue current plan otherwise. When I saw patient she was resting in bed without much complaint. 04/11 Patient seen and examined. Chart Reviewed Discussed with RN 04/12 Patient evaluated during dialysis. BUN and Creatinine are trending down since starting dialysis. Continue current plan. Chart Reviewed. Discussed with RN. 04/13 [facility]. Patient is doing well. Chart Reviewed. Discussed with RN. 04/14 Patient [facility] at [facility]. She is doing well, awaiting acceptance into nursing facility. Chair time has been scheduled at [facility]. Chart Reviewed. Discussed with nurse. Start 500cc IV fluid bolus for mild hypotension. 04/15/2021: Patient seen and examined. Chart reviewed. Discussed with RN. Patient is alert and communicative. Patient is eating well. Outpatient dialysis has been set-up at [facility]. 04/16 Patient seen and examined. Patient has no complaints. Is alert and communicative. Chart reviewed. Discussed with RN. Vitals/I&O Vitals/I&O: Vital Signs Date Time Temp Pulse Resp B/P (MAP) Pulse Ox O2 Delivery O2 Flow Rate FiO2 04/16/21 08:00 Nasal Cannula 2.0 04/16/21 07:00 98.2 85 18 101/52 (68) 95 98.2 I & O 04/15/21 04/15/21 04/16/21 15:00 23:00 07:00 Intake Total 480 ml Output Total 750 ml 350 ml Balance -270 ml -350 ml Physical Exam General: Cooperative, No acute distress Heart: Regular rate Lungs: Clear Abdomen: Normal bowel sounds, No tenderness Extremities: No clubbing Skin: No breakdown Labs Labs: Laboratory Tests Test 04/15/21 17:41 04/15/21 20:56 04/16/21 06:15 04/16/21 07:27 Glucose (Fingerstick) 113 mg/dL (70-99) 130 mg/dL (70-99) 100 mg/dL (70-99) White Blood Count 7.5 x10^3/uL (4.0-11.0) Red Blood Count 2.54 x10^6/uL (3.50-5.40) Hemoglobin 7.2 g/dL (12.0-15.5) Hematocrit 22.6 % (36.0-47.0) Mean Corpuscular Volume 89 fL (79-100) Mean Corpuscular Hemoglobin 29 pg (25-35) Mean Corpuscular Hemoglobin Concent 32 g/dL (31-37) Red Cell Distribution Width 19.2 % (11.5-14.5) Platelet Count 312 x10^3/uL (140-400) Neutrophils (%) (Auto) 65 % (31-73) Lymphocytes (%) (Auto) 16 % (24-48) Monocytes (%) (Auto) 8 % (0-9) Eosinophils (%) (Auto) 10 % (0-3) Basophils (%) (Auto) 1 % (0-3) Neutrophils # (Auto) 4.8 x10^3/uL (1.8-7.7) Lymphocytes # (Auto) 1.2 x10^3/uL (1.0-4.8) Monocytes # (Auto) 0.6 x10^3/uL (0.0-1.1) Eosinophils # (Auto) 0.7 x10^3/uL (0.0-0.7) Basophils # (Auto) 0.1 x10^3/uL (0.0-0.2) Prothrombin Time 14.2 SEC (11.7-14.0) Prothromb Time International Ratio 1.1 (0.8-1.1) Sodium Level 139 mmol/L (136-145) Potassium Level 3.6 mmol/L (3.5-5.1) Chloride Level 103 mmol/L (98-107) Carbon Dioxide Level 26 mmol/L (21-32) Anion Gap 10 (6-14) Blood Urea Nitrogen 36 mg/dL (7-20) Creatinine 5.0 mg/dL (0.6-1.0) Estimated GFR (Cockcroft-Gault) 8.3 BUN/Creatinine Ratio 7 (6-20) Glucose Level 94 mg/dL (70-99) Calcium Level 8.0 mg/dL (8.5-10.1) Total Bilirubin 0.3 mg/dL (0.2-1.0) Aspartate Amino Transf (AST/SGOT) 14 U/L (15-37) Alanine Aminotransferase (ALT/SGPT) 9 U/L (14-59) Alkaline Phosphatase 87 U/L (46-116) Total Protein 6.2 g/dL (6.4-8.2) Albumin 2.0 g/dL (3.4-5.0) Albumin/Globulin Ratio 0.5 (1.0-1.7) Assessment and Plan Assessmemt and Plan 1. Acute Kidney Injury 2. Hypotension 3. UTI 4. Laceration to head 5. History of: HTN, diabetes type 2, lymphedema, obesity, OA Plan: Dialysis per nephrology Discharge dispo pending. Patient accepted for chair time at [facility] For now continue: Home meds DVT prophylaxis Full code Encourage po intake Comment Review of Relevant I have reviewed the following items edis (where applicable) has been applied. Medications: Current Medications Medications (Trade) Dose Ordered Sig/Angy Route PRN Reason Start Time Stop Time Status Last Admin Dose Admin Heparin Sodium (Porcine) (Heparin Sodium) 5,000 unit Q8HRS SQ 1/16/22 22:00 04/16/21 06:12 Justifications for Admission Other Justification NARCISO SHIELDS III DO Apr 16, 2021 11:28
[2021-04-16] MEDS: FOLIC/VIT B COMP W-C (RENAL) TABLET. PO SCH (13:56)
[2021-04-16 15:00] VITALS: BP 89/42
[2021-04-16 19:00] VITALS: BP 137/62
[2021-04-16] MEDS: ATORVASTATIN CALCIUM 40 MG TABLET. PO SCH (21:52)
[2021-04-16] MEDS: EPOETIN ALFA-EPBX for ESRD 20,000 UNIT/ML VIAL. SQ SCH (21:53)
[2021-04-16] MEDS: INSULIN GLARGINE SYRINGE. SQ SCH (21:53)
[2021-04-16 23:00] VITALS: BP 98/49
[2021-04-17 03:00] VITALS: BP 96/47
[2021-04-17] MEDS: PANTOPRAZOLE 40 MG TABLET.DR. PO SCH (05:49)
[2021-04-17] MEDS: HEPARIN for SUB-Q USE 5,000 UNIT/ML VIAL. SQ SCH ×3 (05:52→21:38)
[2021-04-17 07:00] VITALS: BP 100/53
[2021-04-17 07:41] LABS: BASO # 0.1 x10^3/uL (0.0-0.2); BASO % 1 % (0-3); EOS # 0.8 x10^3/uL (0.0-0.7); EOS % 11 % (0-3); HEMATOCRIT 23.4 % (36.0-47.0); HEMOGLOBIN 7.5 g/dL (12.0-15.5); LYMPH # 1.5 x10^3/uL (1.0-4.8); LYMPH % 23 % (24-48); MEAN CORPUSCULAR HEMOGLOBIN 29 pg (25-35); MEAN CORPUSCULAR HGB CONC 32 g/dL (31-37); MEAN CORPUSCULAR VOLUME 90 fL (79-100); MONO # 0.7 x10^3/uL (0.0-1.1); MONO % 10 % (0-9); NEUT # 3.6 x10^3/uL (1.8-7.7); NEUT % 54 % (31-73); PLATELET COUNT 293 x10^3/uL (140-400); RED BLOOD COUNT 2.61 x10^6/uL (3.50-5.40); RED CELL DISTRIBUTION WIDTH 19.6 % (11.5-14.5); WHITE BLOOD COUNT 6.7 x10^3/uL (4.0-11.0)
[2021-04-17 07:47] LABS: CALCIUM 7.7 mg/dL (8.5-10.1); CREATININE 3.2 mg/dL (0.6-1.0); GFR 13.9; POTASSIUM 3.9 mmol/L (3.5-5.1)
[2021-04-17] MEDS: INSULIN LISPRO 300 UNITS/3 ML VIAL. SQ SCH ×3 (08:00→15:29)
[2021-04-17 08:04] LABS: PROTHROMBIN TIME PATIENT 15.1 SEC (11.7-14.0)
[2021-04-17] MEDS: OXYBUTYNIN CHLORIDE 5 MG TABLET PO SCH ×3 (09:30→20:51)
[2021-04-17] MEDS: LACTOBACILLUS RHAMNOSUS GG 1 CAPSULE. PO SCH ×2 (09:30→20:51)
[2021-04-17] MEDS: FOLIC/VIT B COMP W-C (RENAL) TABLET. PO SCH (09:30)
--- NOTE | 2021-04-17 10:12 | PDOC ---
[employer] PROGRESS NOTE Date of Service DOS: DATE: 04/17/21 TIME: 10:09 Chief Complaint Chief Complaint 1. Acute Kidney Injury 2. Hypotension 3. UTI 4. Laceration to head 5. History of: HTN, diabetes type 2, lymphedema, obesity, OA History of Present Illness History of Present Illness 80yo female with PMHx afib, prior DVT/PE, OA, CKD, HTN, DM2 who comes to ED via EMS from her nursing facility [facility] for fall at [facility] and abnormal urine and labs. She fell out of bed while her diaper was being changed the night prior to admission, notes she has bruises to left knee, left elbow, left flank scabbed abrasion to left scalp she thinks tore open. She think she had negative imaging prior to transfer to ED. She did not have loss of consciousness. Patient denies neck pain or head pain. Her only complaints are memory difficulties, weakness and debility and gluteal pain Patient does have a Navarro catheter in place and a tunneled single lumen RIJ, she notes since a discharge on 03/06 for debility she had Urology follow up and was admitted to [facility], does not recall most of her stay and does not know why she has a tunneled line in her right chest wall, does not think she is being given meds 04/09: Patient seen and examined Chart reviewed Discussed with RN Discussed with patient about potential placement at SNF 04/10 Patient evaluated examined at bedside. Creatinine still quite elevated. Tunnel cath requested for today and HD tomorrow per nephrology. Continue current plan otherwise. When I saw patient she was resting in bed without much complaint. 04/11 Patient seen and examined. Chart Reviewed Discussed with RN 04/12 Patient evaluated during dialysis. BUN and Creatinine are trending down since starting dialysis. Continue current plan. Chart Reviewed. Discussed with RN. 04/13 Patient seen and examined at [facility] after her dialysis. Patient is doing well. Chart Reviewed. Discussed with RN. 04/14 Patient seen at [facility]. She is doing well, awaiting acceptance into nursing facility. Chair time has been scheduled at [facility]. Chart Reviewed. Discussed with nurse. Start 500cc IV fluid bolus for mild hypotension. 04/15/2021: Patient seen and examined. Chart reviewed. Discussed with RN. Patient is alert and communicative. Patient is eating well. Outpatient dialysis has been set-up at [facility]. 04/16 Patient seen and examined. Patient has no complaints. Is alert and communicative. Chart reviewed. Discussed with RN. 04/17 Patient seen and examined. Patient is feeling well and ready for discharge. Chart reviewed. Discussed with RN. Vitals/I&O Vitals/I&O: Vital Signs Date Time Temp Pulse Resp B/P (MAP) Pulse Ox O2 Delivery O2 Flow Rate FiO2 04/17/21 07:00 98.4 83 18 100/53 (69) 99 Nasal Cannula 2.0 98.4 I & O 04/16/21 04/16/21 04/17/21 15:00 23:00 07:00 Intake Total 120 ml 500 ml Output Total 350 ml 100 ml Balance 120 ml 150 ml -100 ml Physical Exam General: Cooperative, No acute distress Heart: Regular rate Lungs: Clear Abdomen: Normal bowel sounds, No tenderness Extremities: No clubbing Skin: No breakdown Labs Labs: Laboratory Tests Test 04/16/21 17:02 04/16/21 20:43 04/17/21 06:40 Glucose (Fingerstick) 103 mg/dL (70-99) 106 mg/dL (70-99) White Blood Count 6.7 x10^3/uL (4.0-11.0) Red Blood Count 2.61 x10^6/uL (3.50-5.40) Hemoglobin 7.5 g/dL (12.0-15.5) Hematocrit 23.4 % (36.0-47.0) Mean Corpuscular Volume 90 fL (79-100) Mean Corpuscular Hemoglobin 29 pg (25-35) Mean Corpuscular Hemoglobin Concent 32 g/dL (31-37) Red Cell Distribution Width 19.6 % (11.5-14.5) Platelet Count 293 x10^3/uL (140-400) Neutrophils (%) (Auto) 54 % (31-73) Lymphocytes (%) (Auto) 23 % (24-48) Monocytes (%) (Auto) 10 % (0-9) Eosinophils (%) (Auto) 11 % (0-3) Basophils (%) (Auto) 1 % (0-3) Neutrophils # (Auto) 3.6 x10^3/uL (1.8-7.7) Lymphocytes # (Auto) 1.5 x10^3/uL (1.0-4.8) Monocytes # (Auto) 0.7 x10^3/uL (0.0-1.1) Eosinophils # (Auto) 0.8 x10^3/uL (0.0-0.7) Basophils # (Auto) 0.1 x10^3/uL (0.0-0.2) Prothrombin Time 15.1 SEC (11.7-14.0) Prothromb Time International Ratio 1.2 (0.8-1.1) Sodium Level 137 mmol/L (136-145) Potassium Level 3.9 mmol/L (3.5-5.1) Chloride Level 99 mmol/L (98-107) Carbon Dioxide Level 29 mmol/L (21-32) Anion Gap 9 (6-14) Blood Urea Nitrogen 17 mg/dL (7-20) Creatinine 3.2 mg/dL (0.6-1.0) Estimated GFR (Cockcroft-Gault) 13.9 Glucose Level 109 mg/dL (70-99) Calcium Level 7.7 mg/dL (8.5-10.1) Assessment and Plan Assessmemt and Plan 1. Acute Kidney Injury 2. Hypotension 3. UTI 4. Laceration to head 5. History of: HTN, diabetes type 2, lymphedema, obesity, OA Plan: Dialysis per nephrology Home meds DVT prophylaxis Full code Encourage PO intake [facility] Comment Review of Relevant I have reviewed the following items edis (where applicable) has been applied. Justifications for Admission Other Justification NARCISO SHIELDS III, DO Apr 17, 2021 10:12
[2021-04-17] MEDS ORDERED: INSU100C4 SQ (10:21)
[2021-04-17] MEDS ORDERED: INSU100V8 SQ (10:21)
--- NOTE | 2021-04-17 10:23 | SNU/HH DC ---
DISCHARGE ORDERS DISCHARGE INFORMATION: FINAL DIAGNOSIS Problems Medical Problems: (1) Acute renal failure Status: Acute CONDITION ON DISCHARGE: Stable CODE STATUS: Code Status: Full FPC: SNF STAY <30 DAYS: Yes HOSPICE: HOSPICE: No HOSPICE EVAL & TREAT: No LTAC: ADMIT TO LTAC: Yes POST DISCHARGE ORDERS: ACTIVITY ORDERS: Activity as tolerated WEIGHT BEARING STATUS: As tolerated DIET AFTER DISCHARGE: Cardiac WOUND/INCISION CARE: No wound care needed CHECKS AFTER DISCHARGE: CHECKS AFTER DISCHARGE: Check blood press - daily, Check blood sugar, ac/hs, Check your Temp as needed TREATMENT/EQUIPMENT ORDERS: ADAPTIVE EQUIPMENT NEEDED: Bath Bench, Raised toilet seat w/arms, Walker Physical Therapy For: Evalulation/Treatment Occupational Therapy For: Evaluation/Treatment DISCHARGE MEDICATIONS: Home Meds Active Scripts Insulin Aspart (NOVOLOG) 100 Unit/1 Ml Cartridge, 5 UNIT SQ TIDAC for dm for 30 Days, #1 EACH Prov:NARCISO SHIELDS K III DO 04/17/21 Insulin Glargine,Hum.rec.anlog (LANTUS) 100 Unit/1 Ml Vial, 8 UNIT SQ QHS for . for 30 Days, #1 EACH Prov:TONEY SHIELDSL K III DO 04/17/21 Amlodipine Besylate (AMLODIPINE BESYLATE) 5 Mg Tablet, 5 MG PO DAILY for htn for 60 Days, #60 TAB Prov:LAURIE SHARMA MD 03/06/21 Linezolid (ZYVOX) 600 Mg Tablet, 600 MG PO BID for infection for 4 Days, #8 TAB Prov:LAURIE SHARMA MD 03/06/21 Amoxicillin/Potassium Clav (AMOX TR-K CLV 500-125 MG TAB) 1 Each Tablet, 1 TAB PO BID for infection for 4 Days, #8 TAB Prov:LAURIE SHARMA MD 03/06/21 Polyethylene Glycol 3350 (POLYETHYLENE GLYCOL 3350) 17 Gm Powd.pack, 17 GM PO DAILY PRN for CONSTIPATION for 30 Days, #30 PKT 1 Refill Prov:TIAN NYE MD 12/26/20 Aspirin (ASPIRIN) 81 Mg Tab.chew, 1 TAB PO DAILY for A-fib prophylaxis, #30 TAB 3 Refills Prov:TIAN NYE MD 12/26/20 Nystatin (NYSTOP) 60 Gm Powder, 1 VU TP QID for yeast infection for 15 Days, #1 MISC Prov:JASON TILLEY MD 10/21/19 Lactobacillus Rhamnosus Gg (CULTURELLE) 1 Each Cap.sprink, 1 CAP PO BID for probiotic for 30 Days, #60 CAP Prov:JASON TILLEY MD 10/21/19 Ferrous Sulfate (FEOSOL) 325 Mg Tablet, 325 MG PO BIDWMEALS for iron deficiency anemia for 30 Days, #60 TAB Prov:JASON TILLEY MD 10/21/19 Acetaminophen (TYLENOL) 325 Mg Tablet, 1-2 TAB PO QID PRN for PAIN, #60 TAB Prov:LILI SCHAEFER MD 09/09/19 Reported Medications Furosemide (FUROSEMIDE) 40 Mg Tablet, 1 TAB PO DAILY for edema, #30 TAB 5 Refills 10/14/19 Ergocalciferol (Vitamin D2) (VITAMIN D2) 50,000 Unit Capsule, 1 CAP PO WEEKLY, #4 CAP 5 Refills 06/21/16 Pantoprazole Sodium (PANTOPRAZOLE SODIUM ) 40 Mg Tablet.dr, 1 TAB PO DAILY, #30 TAB 3 Refills 04/01/16 Atorvastatin Calcium (ATORVASTATIN CALCIUM) 40 Mg Tablet, 1 TAB PO QHS, #90 TAB 3 Refills 04/01/16 Discontinued Scripts Insulin Glargine,Hum.rec.anlog (LANTUS) 100 Unit/1 Ml Vial, 20 UNIT SQ BID for DM2 for 30 Days, #1 EACH Prov:HARPREET ZAMORA MD 12/28/18 NARCISO SHIELDS III DO Apr 17, 2021 10:23
[2021-04-17 11:00] VITALS: BP 97/49
--- NOTE | 2021-04-17 11:35 | DS ---
DATE OF DISCHARGE: 04/17/2021 ADMITTING DIAGNOSIS: Acute kidney injury. DISCHARGE DIAGNOSES: End-stage renal disease, requiring dialysis. CONSULTS: Nephrology. HOSPITAL COURSE: The patient is a pleasant older female who presented from [facility] with weakness, was noted to have acute kidney injury. Her initial creatinine was 5.3. We admit the patient. Consult Nephrology, is felt that she probably has chronic end-stage renal disease. She has now been on dialysis for 4 or 5 days. Today, I saw and examined her. She is doing well. We plan to discharge back to the [facility]. DISPOSITION: [facility]. ACTIVITY: As tolerated. DIET: Renal. DISCHARGE MEDICATIONS: Please see the MRAD. Insulin 5 units t.i.d. with meals of NovoLog and 8 units at bedtime of Lantus, p.r.n. Tylenol, amlodipine 5 a day, Augmentin 500 b.i.d., aspirin 81 a day, atorvastatin 40 a day, vitamin D, iron, Lasix 40 a day, lactobacillus, Zyvox 600 b.i.d., nystatin, Protonix 40 a day, polyethylene glycol. TOTAL TIME: 34 minutes. MELISSA/RAÚL DR: Lacey TID: [id number]
--- NOTE | 2021-04-17 14:40 | PDOC ---
DATE OF SERVICE DATE: 04/17/21 TIME: 14:34 SUBJECTIVE ROS No complaints OBJECTIVE Vital Signs Vital Signs Date Time Temp Pulse Resp B/P (MAP) Pulse Ox O2 Delivery O2 Flow Rate FiO2 04/17/21 11:00 97.9 79 18 97/49 (65) 98 Nasal Cannula 2.0 97.9 I & 0 Intake and Output 04/17/21 07:00 Intake Total 620 ml Output Total 450 ml Balance 170 ml Intake Oral 620 ml Output Urine Total 450 ml PHYSICAL EXAM Physical Exam General Appearance: no apparent distress,resting comfortably Skin: warm Respiratory: bilateral CTA Heart: S1S2 Abdomen: soft, bowel sounds present Genitourinary: figueredo + Extremities: pulses present Neurology: alert DIAGNOSIS/ASSESSMENT Assessment & Plan New Onset ESRD- initiated on dialysis , last yesterday. No indication for dialysis today Access Tunneled HDC . OP chair arranged MWF per SW note - starting 04/16 .Dialyzed at [facility] yesterday as not dced . UTI POA - defer to Primary Hydronephrosis - S/P Bilateral Ureteral stents . Defer fu with Urology HX of PAfib Anemia - On BEATRICE ,Recd IV Venofer HTN- currently Low normal DM II DC per Primary COMMENT/RELEVANT DATA Meds Current Medications Medications (Trade) Dose Ordered Sig/Angy Start Time Stop Time Status Last Admin Dose Admin Acetaminophen (Tylenol) 650 mg PRN Q6HRS PRN 04/05/21 19:45 04/16/21 06:10 650 MG Amlodipine Besylate (Norvasc) 5 mg DAILY 04/06/21 09:00 04/15/21 08:53 5 MG Atorvastatin Calcium (Lipitor) 40 mg QHS 04/05/21 23:00 04/16/21 21:52 40 MG Cefazolin Sodium/ Dextrose 50 ml @ 100 mls/hr 1X ONCE 04/10/21 14:15 04/10/21 14:44 DC 04/10/21 14:21 100 MLS/HR Ceftriaxone Sodium (Rocephin) 1 gm DAILY 04/06/21 09:00 04/09/21 13:37 DC 04/09/21 12:00 1 GM Dextrose (Dextrose 50%-Water Syringe) 12.5 gm PRN Q15MIN PRN 04/05/21 22:30 Epoetin Romulo-epbx (RETACRIT for ESRD PTS) 10,000 unit MoWeFr@2100 04/13/21 21:00 04/16/21 21:53 10,000 UNIT Fentanyl Citrate (Fentanyl 2ml Vial) 50 mcg 1X ONCE 04/10/21 14:15 04/10/21 14:16 DC 04/10/21 14:20 50 MCG Ferrous Sulfate (Feosol) 325 mg BIDWMEALS 04/06/21 08:00 04/13/21 10:48 DC 04/12/21 17:41 325 MG Fluconazole (Diflucan) 50 mg DAILY 04/08/21 18:00 04/14/21 17:59 DC 04/14/21 09:42 50 MG Heparin Sodium (Porcine) (Heparin Sodium) 5,000 unit Q8HRS 04/15/21 22:00 04/17/21 13:07 5,000 UNIT Info (PHARMACY MONITORING -- do not chart) 1 each PRN DAILY PRN 04/16/21 08:00 Insulin Glargine (Lantus Syringe) 8 unit QHS 04/05/21 23:00 04/15/21 21:00 8 UNIT Insulin Human Lispro (HumaLOG) 0-7 UNITS TIDWMEALS 04/06/21 08:00 04/15/21 12:18 4 UNITS Iron Sucrose 500 mg/Sodium Chloride 275 ml @ 78.571 mls/ hr 1X ONCE 04/13/21 11:00 04/13/21 14:29 DC 04/13/21 11:53 78.571 MLS/HR Lactobacillus Rhamnosus (Culturelle) 1 cap BID 04/06/21 09:00 04/17/21 09:30 1 CAP Lidocaine/ Epinephrine (LIDOCAINE 1%-EPI 1:100,000 Multi-Dose) 18 ml 1X ONCE 04/10/21 14:30 04/10/21 14:31 DC 04/10/21 14:00 18 ML Lidocaine/ Epinephrine (LIDOCAINE 2%-EPI 1:100,000 multi-dose) 13 ml 1X ONCE 04/10/21 14:15 04/10/21 14:23 DC Midazolam HCl (Versed) 1 mg 1X ONCE 04/10/21 14:15 04/10/21 14:16 DC 04/10/21 14:20 1 MG Olanzapine (ZyPREXA ZYDIS) 5 mg PRN BID PRN 04/05/21 19:45 Ondansetron HCl (Zofran) 4 mg PRN Q4HRS PRN 04/05/21 19:45 Oxybutynin Chloride (Ditropan) 5 mg [id number] 04/11/21 11:00 04/17/21 13:08 5 MG Pantoprazole Sodium (Protonix) 40 mg DAILY07 04/06/21 07:00 04/17/21 05:49 40 MG Polyethylene Glycol (miraLAX PACKET) 17 gm PRN DAILY PRN 04/05/21 22:30 Sodium Chloride 500 ml @ 500 mls/hr 1X ONCE 04/14/21 11:15 04/14/21 12:14 DC 04/14/21 11:15 500 MLS/HR Sodium Chloride (Normal Saline Flush) 10 ml 1X PRN PRN 04/13/21 08:00 04/14/21 07:59 DC Vitamin B Complex/ Vitamin C (Eugenia-Randy) 1 tab DAILY 04/12/21 12:00 04/17/21 09:30 1 TAB Lab Laboratory Tests Test 04/16/21 17:02 04/16/21 20:43 04/17/21 06:40 04/17/21 11:31 Glucose (Fingerstick) 103 mg/dL (70-99) 106 mg/dL (70-99) 142 mg/dL (70-99) White Blood Count 6.7 x10^3/uL (4.0-11.0) Red Blood Count 2.61 x10^6/uL (3.50-5.40) Hemoglobin 7.5 g/dL (12.0-15.5) Hematocrit 23.4 % (36.0-47.0) Mean Corpuscular Volume 90 fL (79-100) Mean Corpuscular Hemoglobin 29 pg (25-35) Mean Corpuscular Hemoglobin Concent 32 g/dL (31-37) Red Cell Distribution Width 19.6 % (11.5-14.5) Platelet Count 293 x10^3/uL (140-400) Neutrophils (%) (Auto) 54 % (31-73) Lymphocytes (%) (Auto) 23 % (24-48) Monocytes (%) (Auto) 10 % (0-9) Eosinophils (%) (Auto) 11 % (0-3) Basophils (%) (Auto) 1 % (0-3) Neutrophils # (Auto) 3.6 x10^3/uL (1.8-7.7) Lymphocytes # (Auto) 1.5 x10^3/uL (1.0-4.8) Monocytes # (Auto) 0.7 x10^3/uL (0.0-1.1) Eosinophils # (Auto) 0.8 x10^3/uL (0.0-0.7) Basophils # (Auto) 0.1 x10^3/uL (0.0-0.2) Prothrombin Time 15.1 SEC (11.7-14.0) Prothromb Time International Ratio 1.2 (0.8-1.1) Sodium Level 137 mmol/L (136-145) Potassium Level 3.9 mmol/L (3.5-5.1) Chloride Level 99 mmol/L (98-107) Carbon Dioxide Level 29 mmol/L (21-32) Anion Gap 9 (6-14) Blood Urea Nitrogen 17 mg/dL (7-20) Creatinine 3.2 mg/dL (0.6-1.0) Estimated GFR (Cockcroft-Gault) 13.9 Glucose Level 109 mg/dL (70-99) Calcium Level 7.7 mg/dL (8.5-10.1) Results All relevant outside records, renal labs, imaging studies, telemetry/EKG's were reviewed. Justicifation of Admission Dx: Justifications for Admission: Justification of Admission Dx: Yes Acute Renal Failure: RF Can't Be Managed Outpt Chronic Renal Failure: Renail Failure MEREDITH CULP MD Apr 17, 2021 14:40
[2021-04-17 15:00] VITALS: BP 101/48
[2021-04-17 20:00] VITALS: BP 115/55
[2021-04-17] MEDS: ATORVASTATIN CALCIUM 40 MG TABLET. PO SCH (20:51)
[2021-04-17] MEDS: INSULIN GLARGINE SYRINGE. SQ SCH (21:37)
--- NOTE | 2021-04-17 22:00 | NUR ---
Patient transferred to room 675, with all belongings. Violet NATARAJAN given report and assumed care of Patient.
[2021-04-17 22:27] VITALS: BP 116/56
[2021-04-18 02:24] VITALS: BP 139/63
[2021-04-18 04:47] LABS: BASO # 0.1 x10^3/uL (0.0-0.2); BASO % 1 % (0-3); EOS # 0.8 x10^3/uL (0.0-0.7); EOS % 12 % (0-3); HEMATOCRIT 23.4 % (36.0-47.0); HEMOGLOBIN 7.6 g/dL (12.0-15.5); LYMPH # 1.4 x10^3/uL (1.0-4.8); LYMPH % 21 % (24-48); MEAN CORPUSCULAR HEMOGLOBIN 29 pg (25-35); MEAN CORPUSCULAR HGB CONC 32 g/dL (31-37); MEAN CORPUSCULAR VOLUME 90 fL (79-100); MONO # 0.5 x10^3/uL (0.0-1.1); MONO % 8 % (0-9); NEUT % 59 % (31-73); PLATELET COUNT 292 x10^3/uL (140-400); RED BLOOD COUNT 2.59 x10^6/uL (3.50-5.40); RED CELL DISTRIBUTION WIDTH 19.9 % (11.5-14.5); WHITE BLOOD COUNT 6.9 x10^3/uL (4.0-11.0)
[2021-04-18 04:52] LABS: PROTHROMBIN TIME PATIENT 13.2 SEC (11.7-14.0)
[2021-04-18 05:07] LABS: CALCIUM 7.7 mg/dL (8.5-10.1); CREATININE 4.3 mg/dL (0.6-1.0); GFR 9.9; POTASSIUM 3.8 mmol/L (3.5-5.1)
[2021-04-18 07:00] VITALS: BP 120/56
[2021-04-18] MEDS: PANTOPRAZOLE 40 MG TABLET.DR. PO SCH (07:26)
[2021-04-18] MEDS: HEPARIN for SUB-Q USE 5,000 UNIT/ML VIAL. SQ SCH ×3 (07:27→21:45)
--- NOTE | 2021-04-18 07:56 | PDOC ---
[employer] PROGRESS NOTE Date of Service DOS: DATE: 04/18/21 TIME: 07:54 Chief Complaint Chief Complaint Acute Kidney Injury Hypotension UTI Laceration to head HTN, diabetes type 2, lymphedema, obesity, OA COVID 19 History of Present Illness History of Present Illness 80yo female with PMHx afib, prior DVT/PE, OA, CKD, HTN, DM2 who comes to ED via EMS from her nursing facility [facility] for fall at SNF and abnormal urine and labs. She fell out of bed while her diaper was being changed the night prior to admission, notes she has bruises to left knee, left elbow, left flank scabbed abrasion to left scalp she thinks tore open. She think she had negative imaging prior to transfer to ED. She did not have loss of consciousness. Patient denies neck pain or head pain. Her only complaints are memory difficulties, weakness and debility and gluteal pain Patient does have a Navarro catheter in place and a tunneled single lumen RIJ, she notes since a discharge on 03/06 for debility she had Urology follow up and was admitted to [facility], does not recall most of her stay and does not know why she has a tunneled line in her right chest wall, does not think she is being given meds 04/09: Nephrology and urology consulted. Has chronic uretal stents bilaterally and getting tunneled catheter placed for HD. 04/10: Patient evaluated examined at bedside. Creatinine still quite elevated. Tunnel cath requested for today and HD tomorrow per nephrology. Continue current plan otherwise. When I saw patient she was resting in bed without much complaint. 04/12: Patient evaluated during dialysis. BUN and Creatinine are trending down since starting dialysis. Continue current plan. 04/13: Patient seen and examined at [facility] after her dialysis. Patient is doing well. 04/14: Patient seen at [facility]. She is doing well, awaiting acceptance into nursing facility. Chair time has been scheduled at [facility]. 04/15: Outpatient dialysis has been set-up at [facility]. 04/16: Needs SNF, has outpatient dialysis set up 04/17: Rapid COVID 19 returns positive, plans for dc to SNF and outpatient dialysis 04/18: Hemodialysis. No significant complaints. COVID-19 was positive on repeat testing. She is not currently hypoxic and not feel any symptoms Vitals/I&O Vitals/I&O: Vital Signs Date Time Temp Pulse Resp B/P (MAP) Pulse Ox O2 Delivery O2 Flow Rate FiO2 04/18/21 02:24 98.3 88 18 139/63 (88) 99 Nasal Cannula 2.0 98.3 I & O 04/17/21 04/17/21 04/18/21 15:00 23:00 07:00 Intake Total 100 ml 0 ml Output Total 400 ml Balance 100 ml -400 ml Physical Exam General: Cooperative, No acute distress Heart: Regular rate Lungs: Clear Abdomen: Normal bowel sounds, No tenderness Extremities: No clubbing Skin: No breakdown Labs Labs: Laboratory Tests Test 04/17/21 11:31 04/17/21 15:20 04/17/21 18:10 04/17/21 21:20 Glucose (Fingerstick) 142 mg/dL (70-99) 142 mg/dL (70-99) 132 mg/dL (70-99) SARS-CoV-2 Antigen (Rapid) Positive (NEGATIVE) Test 04/18/21 04:20 White Blood Count 6.9 x10^3/uL (4.0-11.0) Red Blood Count 2.59 x10^6/uL (3.50-5.40) Hemoglobin 7.6 g/dL (12.0-15.5) Hematocrit 23.4 % (36.0-47.0) Mean Corpuscular Volume 90 fL (79-100) Mean Corpuscular Hemoglobin 29 pg (25-35) Mean Corpuscular Hemoglobin Concent 32 g/dL (31-37) Red Cell Distribution Width 19.9 % (11.5-14.5) Platelet Count 292 x10^3/uL (140-400) Neutrophils (%) (Auto) 59 % (31-73) Lymphocytes (%) (Auto) 21 % (24-48) Monocytes (%) (Auto) 8 % (0-9) Eosinophils (%) (Auto) 12 % (0-3) Basophils (%) (Auto) 1 % (0-3) Neutrophils # (Auto) 4.0 x10^3/uL (1.8-7.7) Lymphocytes # (Auto) 1.4 x10^3/uL (1.0-4.8) Monocytes # (Auto) 0.5 x10^3/uL (0.0-1.1) Eosinophils # (Auto) 0.8 x10^3/uL (0.0-0.7) Basophils # (Auto) 0.1 x10^3/uL (0.0-0.2) Prothrombin Time 13.2 SEC (11.7-14.0) Prothromb Time International Ratio 1.0 (0.8-1.1) Sodium Level 139 mmol/L (136-145) Potassium Level 3.8 mmol/L (3.5-5.1) Chloride Level 101 mmol/L (98-107) Carbon Dioxide Level 28 mmol/L (21-32) Anion Gap 10 (6-14) Blood Urea Nitrogen 24 mg/dL (7-20) Creatinine 4.3 mg/dL (0.6-1.0) Estimated GFR (Cockcroft-Gault) 9.9 Glucose Level 120 mg/dL (70-99) Calcium Level 7.7 mg/dL (8.5-10.1) Assessment and Plan Assessmemt and Plan Problems Medical Problems: (1) Acute renal failure Status: Acute Comment Review of Relevant I have reviewed the following items edis (where applicable) has been applied. Justifications for Admission Other Justification LAURIE GIBSON MD Apr 18, 2021 07:56
[2021-04-18] MEDS ORDERED: IV NORMAL SALINE 1000ML BAG 1,000 ML IV PRN ×2 (08:00)
[2021-04-18] MEDS ORDERED: ALBUMIN HUMAN 25% 100 ML IV PRN (08:00)
[2021-04-18] MEDS: INSULIN LISPRO 300 UNITS/3 ML VIAL. SQ SCH ×3 (08:00→17:00)
[2021-04-18] MEDS ORDERED: DIALYSIS PATIENT. MC PRN ×2 (08:00)
[2021-04-18] MEDS: FOLIC/VIT B COMP W-C (RENAL) TABLET. PO SCH (08:55)
[2021-04-18] MEDS: LACTOBACILLUS RHAMNOSUS GG 1 CAPSULE. PO SCH ×2 (08:55→21:43)
[2021-04-18] MEDS: OXYBUTYNIN CHLORIDE 5 MG TABLET PO SCH ×3 (08:55→21:43)
--- NOTE | 2021-04-18 11:15 | PDOC ---
DATE OF SERVICE DATE: 04/18/21 TIME: 11:12 SUBJECTIVE ROS No complaints , seen during dialysis. OBJECTIVE Vital Signs Vital Signs Date Time Temp Pulse Resp B/P (MAP) Pulse Ox O2 Delivery O2 Flow Rate FiO2 04/18/21 08:55 88 139/63 04/18/21 08:02 Room Air 04/18/21 07:00 97.8 18 99 2.0 97.8 I & 0 Intake and Output 04/18/21 07:00 Intake Total 100 ml Output Total 400 ml Balance -300 ml Intake Oral 100 ml Output Urine Total 400 ml PHYSICAL EXAM Physical Exam General Appearance: no apparent distress,resting comfortably Skin: warm Respiratory: bilateral CTA Heart: S1S2 Abdomen: soft, bowel sounds present Genitourinary: figueredo + Extremities: pulses present Neurology: alert DIAGNOSIS/ASSESSMENT Assessment & Plan New Onset ESRD- initiated on dialysis , seen during dialysis, 5th treatment today , tolerating well, Continue a sordered, Dw DRN Access Tunneled HDC . OP chair arranged MWF per SW note - start date was 04/16 .Dialyzed at [facility] today . DC per primary UTI POA - Primary managing Hydronephrosis - S/P Bilateral Ureteral stents . Defer fu with Urology HX of PAfib Anemia - On BEATRICE ,Recd IV Venofer HTN- currently Low normal DM II DC per Primary COMMENT/RELEVANT DATA Meds Current Medications Medications (Trade) Dose Ordered Sig/Angy Start Time Stop Time Status Last Admin Dose Admin Acetaminophen (Tylenol) 650 mg PRN Q6HRS PRN 04/05/21 19:45 04/16/21 06:10 650 MG Albumin Human 100 ml @ 200 mls/hr 1X PRN PRN 04/18/21 08:00 04/18/21 13:59 Amlodipine Besylate (Norvasc) 5 mg DAILY 04/06/21 09:00 04/18/21 08:55 5 MG Atorvastatin Calcium (Lipitor) 40 mg QHS 04/05/21 23:00 04/17/21 20:51 40 MG Cefazolin Sodium/ Dextrose 50 ml @ 100 mls/hr 1X ONCE 04/10/21 14:15 04/10/21 14:44 DC 04/10/21 14:21 100 MLS/HR Ceftriaxone Sodium (Rocephin) 1 gm DAILY 04/06/21 09:00 04/09/21 13:37 DC 04/09/21 12:00 1 GM Dextrose (Dextrose 50%-Water Syringe) 12.5 gm PRN Q15MIN PRN 04/05/21 22:30 Epoetin Romulo-epbx (RETACRIT for ESRD PTS) 10,000 unit MoWeFr@2100 04/13/21 21:00 04/16/21 21:53 10,000 UNIT Fentanyl Citrate (Fentanyl 2ml Vial) 50 mcg 1X ONCE 04/10/21 14:15 04/10/21 14:16 DC 04/10/21 14:20 50 MCG Ferrous Sulfate (Feosol) 325 mg BIDWMEALS 04/06/21 08:00 04/13/21 10:48 DC 04/12/21 17:41 325 MG Fluconazole (Diflucan) 50 mg DAILY 04/08/21 18:00 04/14/21 17:59 DC 04/14/21 09:42 50 MG Heparin Sodium (Porcine) (Heparin Sodium) 5,000 unit Q8HRS 04/15/21 22:00 04/18/21 07:27 5,000 UNIT Info (PHARMACY MONITORING -- do not chart) 1 each PRN DAILY PRN 04/18/21 08:00 Cancel Insulin Glargine (Lantus Syringe) 8 unit QHS 04/05/21 23:00 04/17/21 21:37 8 UNIT Insulin Human Lispro (HumaLOG) 0-7 UNITS TIDWMEALS 04/06/21 08:00 04/15/21 12:18 4 UNITS Iron Sucrose 500 mg/Sodium Chloride 275 ml @ 78.571 mls/ hr 1X ONCE 04/13/21 11:00 04/13/21 14:29 DC 04/13/21 11:53 78.571 MLS/HR Lactobacillus Rhamnosus (Culturelle) 1 cap BID 04/06/21 09:00 04/18/21 08:55 1 CAP Lidocaine/ Epinephrine (LIDOCAINE 1%-EPI 1:100,000 Multi-Dose) 18 ml 1X ONCE 04/10/21 14:30 04/10/21 14:31 DC 04/10/21 14:00 18 ML Lidocaine/ Epinephrine (LIDOCAINE 2%-EPI 1:100,000 multi-dose) 13 ml 1X ONCE 04/10/21 14:15 04/10/21 14:23 DC Midazolam HCl (Versed) 1 mg 1X ONCE 04/10/21 14:15 04/10/21 14:16 DC 04/10/21 14:20 1 MG Olanzapine (ZyPREXA ZYDIS) 5 mg PRN BID PRN 04/05/21 19:45 Ondansetron HCl (Zofran) 4 mg PRN Q4HRS PRN 04/05/21 19:45 Oxybutynin Chloride (Ditropan) 5 mg [id number] 04/11/21 11:00 04/18/21 08:55 5 MG Pantoprazole Sodium (Protonix) 40 mg DAILY07 04/06/21 07:00 04/18/21 07:26 40 MG Polyethylene Glycol (miraLAX PACKET) 17 gm PRN DAILY PRN 04/05/21 22:30 Sodium Chloride 1,000 ml @ 400 mls/hr Q2H30M PRN 04/18/21 08:00 04/18/21 19:59 Sodium Chloride (Normal Saline Flush) 10 ml 1X PRN PRN 04/13/21 08:00 04/14/21 07:59 DC Vitamin B Complex/ Vitamin C (Eugenia-Randy) 1 tab DAILY 04/12/21 12:00 04/18/21 08:55 1 TAB Lab Laboratory Tests Test 04/17/21 11:31 04/17/21 15:20 04/17/21 18:10 04/17/21 21:20 Glucose (Fingerstick) 142 mg/dL (70-99) 142 mg/dL (70-99) 132 mg/dL (70-99) SARS-CoV-2 Antigen (Rapid) Positive (NEGATIVE) Test 04/18/21 04:20 04/18/21 08:46 White Blood Count 6.9 x10^3/uL (4.0-11.0) Red Blood Count 2.59 x10^6/uL (3.50-5.40) Hemoglobin 7.6 g/dL (12.0-15.5) Hematocrit 23.4 % (36.0-47.0) Mean Corpuscular Volume 90 fL (79-100) Mean Corpuscular Hemoglobin 29 pg (25-35) Mean Corpuscular Hemoglobin Concent 32 g/dL (31-37) Red Cell Distribution Width 19.9 % (11.5-14.5) Platelet Count 292 x10^3/uL (140-400) Neutrophils (%) (Auto) 59 % (31-73) Lymphocytes (%) (Auto) 21 % (24-48) Monocytes (%) (Auto) 8 % (0-9) Eosinophils (%) (Auto) 12 % (0-3) Basophils (%) (Auto) 1 % (0-3) Neutrophils # (Auto) 4.0 x10^3/uL (1.8-7.7) Lymphocytes # (Auto) 1.4 x10^3/uL (1.0-4.8) Monocytes # (Auto) 0.5 x10^3/uL (0.0-1.1) Eosinophils # (Auto) 0.8 x10^3/uL (0.0-0.7) Basophils # (Auto) 0.1 x10^3/uL (0.0-0.2) Prothrombin Time 13.2 SEC (11.7-14.0) Prothromb Time International Ratio 1.0 (0.8-1.1) Sodium Level 139 mmol/L (136-145) Potassium Level 3.8 mmol/L (3.5-5.1) Chloride Level 101 mmol/L (98-107) Carbon Dioxide Level 28 mmol/L (21-32) Anion Gap 10 (6-14) Blood Urea Nitrogen 24 mg/dL (7-20) Creatinine 4.3 mg/dL (0.6-1.0) Estimated GFR (Cockcroft-Gault) 9.9 Glucose Level 120 mg/dL (70-99) Calcium Level 7.7 mg/dL (8.5-10.1) Glucose (Fingerstick) 120 mg/dL (70-99) Results All relevant outside records, renal labs, imaging studies, telemetry/EKG's were reviewed. Justicifation of Admission Dx: Justifications for Admission: Justification of Admission Dx: Yes Acute Renal Failure: RF Can't Be Managed Outpt Chronic Renal Failure: Renail Failure MEREDITH CULP MD Apr 18, 2021 11:14
--- NOTE | 2021-04-18 13:31 | NUR ---
SS following up with discharge planning. SS reviewed pt chart and discussed with pt RN. Pt is currently requiring oxygen at two liters nasal canula. COVID19 positive on 04/17/2021. Pt has outpatient hemodialysis set up at [facility], ; fax [phone], Friday, Friday, and Friday at 1630. PT/OT recommended assisted unit. Pt was accepted at [facility] but since pt tested positive for COVID19 they are unable to accept for 10 days. SS contacted [facility], ; fax [phone], and was notified that they cannot transport to and from dialysis with COVID19. SS discussed with Amara at [facility], ; fax [phone], and was notified that they can do in house dialysis and accept pt COVID19 positive pending insurance approval. Referral phoned and faxed to [facility]. SS will continue to follow for discharge planning.
[2021-04-18 15:00] VITALS: BP 90/51
[2021-04-18 19:00] VITALS: BP 105/55
[2021-04-18] MEDS: ATORVASTATIN CALCIUM 40 MG TABLET. PO SCH (21:43)
[2021-04-18] MEDS: EPOETIN ALFA-EPBX for ESRD 20,000 UNIT/ML VIAL. SQ SCH (21:44)
[2021-04-18] MEDS: INSULIN GLARGINE SYRINGE. SQ SCH (21:45)
[2021-04-18 22:42] VITALS: BP 116/53
[2021-04-19 03:00] VITALS: BP 110/52
[2021-04-19] MEDS: PANTOPRAZOLE 40 MG TABLET.DR. PO SCH (05:49)
[2021-04-19] MEDS: HEPARIN for SUB-Q USE 5,000 UNIT/ML VIAL. SQ SCH ×3 (05:50→21:23)
[2021-04-19 07:00] VITALS: BP 119/55
[2021-04-19] MEDS: INSULIN LISPRO 300 UNITS/3 ML VIAL. SQ SCH ×3 (08:00→17:00)
--- NOTE | 2021-04-19 10:06 | PDOC ---
DATE OF SERVICE DATE: 04/19/21 TIME: 10:05 SUBJECTIVE ROS No complaints OBJECTIVE Vital Signs Vital Signs Date Time Temp Pulse Resp B/P (MAP) Pulse Ox O2 Delivery O2 Flow Rate FiO2 04/19/21 07:00 97.8 81 16 119/55 (76) 96 Room Air 97.8 04/18/21 15:00 2.0 I & 0 Intake and Output 04/19/21 06:59 Intake Total 570 ml Output Total 375 ml Balance 195 ml Intake Oral 570 ml Output Urine Total 375 ml PHYSICAL EXAM Physical Exam General Appearance: no apparent distress,resting comfortably Skin: warm Respiratory: bilateral CTA Heart: S1S2 Abdomen: soft, bowel sounds present Genitourinary: figueredo + Extremities: pulses present Neurology: alert DIAGNOSIS/ASSESSMENT Assessment & Plan New Onset ESRD- initiated on dialysis , on MWF schedule. Currently no indication today Access Tunneled HDC . OP chair MWF @ [facility] 3 rd shift CoVid Rapid- positive on 04/17 UTI POA - Primary managing Hydronephrosis - S/P Bilateral Ureteral stents . Defer fu with Urology HX of PAfib Anemia - On BEATRICE ,Recd IV Venofer HTN- currently Low normal DM II DC per Primary, awaiting placement COMMENT/RELEVANT DATA Meds Current Medications Medications (Trade) Dose Ordered Sig/Angy Start Time Stop Time Status Last Admin Dose Admin Acetaminophen (Tylenol) 650 mg PRN Q6HRS PRN 04/05/21 19:45 04/16/21 06:10 650 MG Albumin Human 100 ml @ 200 mls/hr 1X PRN PRN 04/18/21 08:00 04/18/21 13:59 DC 04/18/21 11:40 200 MLS/HR Amlodipine Besylate (Norvasc) 5 mg DAILY 04/06/21 09:00 04/18/21 08:55 5 MG Atorvastatin Calcium (Lipitor) 40 mg QHS 04/05/21 23:00 04/18/21 21:43 40 MG Cefazolin Sodium/ Dextrose 50 ml @ 100 mls/hr 1X ONCE 04/10/21 14:15 04/10/21 14:44 DC 04/10/21 14:21 100 MLS/HR Ceftriaxone Sodium (Rocephin) 1 gm DAILY 04/06/21 09:00 04/09/21 13:37 DC 04/09/21 12:00 1 GM Dextrose (Dextrose 50%-Water Syringe) 12.5 gm PRN Q15MIN PRN 04/05/21 22:30 Epoetin Romulo-epbx (RETACRIT for ESRD PTS) 10,000 unit MoWeFr@2100 04/13/21 21:00 04/18/21 21:44 10,000 UNIT Fentanyl Citrate (Fentanyl 2ml Vial) 50 mcg 1X ONCE 04/10/21 14:15 04/10/21 14:16 DC 04/10/21 14:20 50 MCG Ferrous Sulfate (Feosol) 325 mg BIDWMEALS 04/06/21 08:00 04/13/21 10:48 DC 04/12/21 17:41 325 MG Fluconazole (Diflucan) 50 mg DAILY 04/08/21 18:00 04/14/21 17:59 DC 04/14/21 09:42 50 MG Heparin Sodium (Porcine) (Heparin Sodium) 5,000 unit Q8HRS 04/15/21 22:00 04/19/21 05:50 5,000 UNIT Info (PHARMACY MONITORING -- do not chart) 1 each PRN DAILY PRN 04/18/21 08:00 Cancel Insulin Glargine (Lantus Syringe) 8 unit QHS 04/05/21 23:00 04/18/21 21:45 8 UNIT Insulin Human Lispro (HumaLOG) 0-7 UNITS TIDWMEALS 04/06/21 08:00 04/15/21 12:18 4 UNITS Iron Sucrose 500 mg/Sodium Chloride 275 ml @ 78.571 mls/ hr 1X ONCE 04/13/21 11:00 04/13/21 14:29 DC 04/13/21 11:53 78.571 MLS/HR Lactobacillus Rhamnosus (Culturelle) 1 cap BID 04/06/21 09:00 04/18/21 21:43 1 CAP Lidocaine/ Epinephrine (LIDOCAINE 1%-EPI 1:100,000 Multi-Dose) 18 ml 1X ONCE 04/10/21 14:30 04/10/21 14:31 DC 04/10/21 14:00 18 ML Lidocaine/ Epinephrine (LIDOCAINE 2%-EPI 1:100,000 multi-dose) 13 ml 1X ONCE 04/10/21 14:15 04/10/21 14:23 DC Midazolam HCl (Versed) 1 mg 1X ONCE 04/10/21 14:15 04/10/21 14:16 DC 04/10/21 14:20 1 MG Olanzapine (ZyPREXA ZYDIS) 5 mg PRN BID PRN 04/05/21 19:45 Ondansetron HCl (Zofran) 4 mg PRN Q4HRS PRN 04/05/21 19:45 Oxybutynin Chloride (Ditropan) 5 mg [id number] 04/11/21 11:00 04/18/21 21:43 5 MG Pantoprazole Sodium (Protonix) 40 mg DAILY07 04/06/21 07:00 04/19/21 05:49 40 MG Polyethylene Glycol (miraLAX PACKET) 17 gm PRN DAILY PRN 04/05/21 22:30 Sodium Chloride 1,000 ml @ 400 mls/hr Q2H30M PRN 04/18/21 08:00 04/18/21 19:59 DC Sodium Chloride (Normal Saline Flush) 10 ml 1X PRN PRN 04/13/21 08:00 04/14/21 07:59 DC Vitamin B Complex/ Vitamin C (Eugenia-Randy) 1 tab DAILY 04/12/21 12:00 04/18/21 08:55 1 TAB Lab Laboratory Tests Test 04/18/21 17:27 04/18/21 20:49 04/19/21 08:04 Glucose (Fingerstick) 107 mg/dL (70-99) 107 mg/dL (70-99) 103 mg/dL (70-99) Results All relevant outside records, renal labs, imaging studies, telemetry/EKG's were reviewed. Justicifation of Admission Dx: Justifications for Admission: Justification of Admission Dx: Yes Acute Renal Failure: RF Can't Be Managed Outpt Chronic Renal Failure: Renail Failure MEREDITH CULP MD Apr 19, 2021 10:06
[2021-04-19] MEDS: LACTOBACILLUS RHAMNOSUS GG 1 CAPSULE. PO SCH ×2 (10:27→21:22)
[2021-04-19] MEDS: FOLIC/VIT B COMP W-C (RENAL) TABLET. PO SCH (10:28)
[2021-04-19] MEDS: OXYBUTYNIN CHLORIDE 5 MG TABLET PO SCH ×3 (10:28→21:23)
[2021-04-19 11:00] VITALS: BP 119/57
[2021-04-19] MEDS: ONDANSETRON PF 4 MG/2 ML VIAL. IVP PRN ×2 (11:44→21:22)
--- NOTE | 2021-04-19 12:29 | NUR ---
SS following up with discharge planning. SS reviewed pt chart and discussed with pt RN. Pt is currently on room air. COVID19 positive. Hemodialysis. PT/OT recommended [facility] unit. [facility] contacted SS and requested PT report from today. [facility] expressed concern about orthostasis, dizziness, and ambulation. [facility] reported that orthostasis needs to be improved and pt needs to be able to walk to the bathroom. PT worked with pt and pt orthostatic this morning. Pt was unable to walk and was orthostatic. [facility] unable to clinically accept pt at this time due to these issues. Pt accepted at [facility], ; fax [phone], but will need to be 10 days post COVID19 positive test. Pt unable to admit until 04/28/2021. SS will continue to follow for discharge planning.
--- NOTE | 2021-04-19 13:26 | PDOC ---
[employer] PROGRESS NOTE Date of Service DOS: DATE: 04/19/21 TIME: 13:25 Chief Complaint Chief Complaint Acute Kidney Injury Hypotension UTI Laceration to head HTN, diabetes type 2, lymphedema, obesity, OA COVID 19 History of Present Illness History of Present Illness 80yo female with PMHx afib, prior DVT/PE, OA, CKD, HTN, DM2 who comes to ED via EMS from her nursing facility [facility] for fall at SNF and abnormal urine and labs. She fell out of bed while her diaper was being changed the night prior to admission, notes she has bruises to left knee, left elbow, left flank scabbed abrasion to left scalp she thinks tore open. She think she had negative imaging prior to transfer to ED. She did not have loss of consciousness. Patient denies neck pain or head pain. Her only complaints are memory difficulties, weakness and debility and gluteal pain Patient does have a Navarro catheter in place and a tunneled single lumen RIJ, she notes since a discharge on 03/06 for debility she had Urology follow up and was admitted to [facility], does not recall most of her stay and does not know why she has a tunneled line in her right chest wall, does not think she is being given meds 04/09: Nephrology and urology consulted. Has chronic uretal stents bilaterally and getting tunneled catheter placed for HD. 04/10: Patient evaluated examined at bedside. Creatinine still quite elevated. Tunnel cath requested for today and HD tomorrow per nephrology. Continue current plan otherwise. When I saw patient she was resting in bed without much complaint. 04/12: Patient evaluated during dialysis. BUN and Creatinine are trending down since starting dialysis. Continue current plan. 04/13: Patient seen and examined at [facility] after her dialysis. Patient is doing well. 04/14: Patient seen at [facility]. She is doing well, awaiting acceptance into nursing facility. Chair time has been scheduled at [facility]. 04/15: Outpatient dialysis has been set-up at [facility]. 04/16: Needs SNF, has outpatient dialysis set up 04/17: Rapid COVID 19 returns positive, plans for dc to SNF and outpatient dialysis 04/18: Hemodialysis. No significant complaints. COVID-19 was positive on repeat testing. She is not currently hypoxic and not feel any symptoms 04/19: Orthostatic positive with therapy today. She just feels weak overall and feels her neck is weak. No loss of rn medical surgical strength. Needs rehab. Vitals/I&O Vitals/I&O: Vital Signs Date Time Temp Pulse Resp B/P (MAP) Pulse Ox O2 Delivery O2 Flow Rate FiO2 04/19/21 11:00 97.1 76 20 119/57 (77) 97 Room Air 97.1 04/18/21 15:00 2.0 I & O 04/18/21 04/18/21 04/19/21 15:00 23:00 07:00 Intake Total 100 ml 320 ml 150 ml Output Total 250 ml 125 ml Balance 100 ml 70 ml 25 ml Physical Exam General: Cooperative, No acute distress Heart: Regular rate Lungs: Clear Abdomen: Normal bowel sounds, No tenderness Extremities: No clubbing Skin: No breakdown Labs Labs: Laboratory Tests Test 04/18/21 17:27 04/18/21 20:49 04/19/21 08:04 04/19/21 11:33 Glucose (Fingerstick) 107 mg/dL (70-99) 107 mg/dL (70-99) 103 mg/dL (70-99) 123 mg/dL (70-99) Assessment and Plan Assessmemt and Plan Problems Medical Problems: (1) Acute renal failure Status: Acute Comment Review of Relevant I have reviewed the following items edis (where applicable) has been applied. Justifications for Admission Other Justification LAURIE GIBSON MD Apr 19, 2021 13:26
[2021-04-19 15:00] VITALS: BP 102/56
[2021-04-19 18:57] VITALS: BP 119/59
--- NOTE | 2021-04-19 19:30 | NUR ---
PT IN BED ASSESSMENT COMPLETED PT DENIED PAIN AT THIS TIME POC EXPLAINED, PT REPOSITIONED CALL LIGHT PLACED IN REACH WILL RESUME CARE AND CONTINUE TO MONITOR PT.
[2021-04-19] MEDS: ATORVASTATIN CALCIUM 40 MG TABLET. PO SCH (21:22)
[2021-04-19] MEDS: INSULIN GLARGINE SYRINGE. SQ SCH (21:24)
[2021-04-19] MEDS: ACETAMINOPHEN 325 MG TABLET. PO PRN (22:26)
[2021-04-19 22:53] VITALS: BP 100/51
[2021-04-20 03:07] VITALS: BP 111/54
[2021-04-20] MEDS: HEPARIN for SUB-Q USE 5,000 UNIT/ML VIAL. SQ SCH ×3 (05:40→21:09)
[2021-04-20] MEDS: PANTOPRAZOLE 40 MG TABLET.DR. PO SCH (05:40)
[2021-04-20 07:00] VITALS: BP 102/50
[2021-04-20] MEDS: INSULIN LISPRO 300 UNITS/3 ML VIAL. SQ SCH ×3 (08:00→17:00)
[2021-04-20] MEDS: FOLIC/VIT B COMP W-C (RENAL) TABLET. PO SCH (09:56)
[2021-04-20] MEDS: LACTOBACILLUS RHAMNOSUS GG 1 CAPSULE. PO SCH ×2 (09:56→21:07)
[2021-04-20] MEDS: OXYBUTYNIN CHLORIDE 5 MG TABLET PO SCH ×3 (09:56→21:07)
[2021-04-20 11:00] VITALS: BP 103/53
--- NOTE | 2021-04-20 11:18 | PDOC ---
DATE OF SERVICE DATE: 04/20/21 TIME: 11:15 SUBJECTIVE ROS No complaints when resting Denies SOB, No N/V OBJECTIVE Vital Signs Vital Signs Date Time Temp Pulse Resp B/P (MAP) Pulse Ox O2 Delivery O2 Flow Rate FiO2 04/20/21 07:00 96.3 81 16 102/50 (67) 100 Room Air 96.3 I & 0 Intake and Output 04/20/21 07:00 Intake Total 475 ml Balance 475 ml Intake Oral 475 ml # Bowel Movements 1 PHYSICAL EXAM Physical Exam General Appearance: no apparent distress,resting comfortably Skin: warm Respiratory: bilateral CTA Heart: S1S2 Abdomen: soft, bowel sounds present Genitourinary: figueredo + Extremities: pulses present Neurology: alert DIAGNOSIS/ASSESSMENT Assessment & Plan New Onset ESRD- initiated on dialysis , on MWF schedule.Dialysis today, discussed treatment plan with [facility] . OP chair [facility] @ [facility] 3 rd shift CoVid Rapid- positive on 04/17 UTI POA - Primary managing Hydronephrosis - S/P Bilateral Ureteral stents . Defer fu with Urology HX of PAfib Anemia - On BEATRICE ,Recd IV Venofer HTN- currently Low normal . DM II Per PT- Pt was orthostatic and unable to walk DC per Primary, awaiting placement COMMENT/RELEVANT DATA Meds Current Medications Medications (Trade) Dose Ordered Sig/Angy Start Time Stop Time Status Last Admin Dose Admin Acetaminophen (Tylenol) 650 mg PRN Q6HRS PRN 04/05/21 19:45 04/19/21 22:26 650 MG Albumin Human 100 ml @ 200 mls/hr 1X PRN PRN 04/18/21 08:00 04/18/21 13:59 DC 04/18/21 11:40 200 MLS/HR Amlodipine Besylate (Norvasc) 5 mg DAILY 04/06/21 09:00 04/19/21 10:28 5 MG Atorvastatin Calcium (Lipitor) 40 mg QHS 04/05/21 23:00 04/19/21 21:22 40 MG Cefazolin Sodium/ Dextrose 50 ml @ 100 mls/hr 1X ONCE 04/10/21 14:15 04/10/21 14:44 DC 04/10/21 14:21 100 MLS/HR Ceftriaxone Sodium (Rocephin) 1 gm DAILY 04/06/21 09:00 04/09/21 13:37 DC 04/09/21 12:00 1 GM Dextrose (Dextrose 50%-Water Syringe) 12.5 gm PRN Q15MIN PRN 04/05/21 22:30 Epoetin Romulo-epbx (RETACRIT for ESRD PTS) 10,000 unit MoWeFr@2100 04/13/21 21:00 04/18/21 21:44 10,000 UNIT Fentanyl Citrate (Fentanyl 2ml Vial) 50 mcg 1X ONCE 04/10/21 14:15 04/10/21 14:16 DC 04/10/21 14:20 50 MCG Ferrous Sulfate (Feosol) 325 mg BIDWMEALS 04/06/21 08:00 04/13/21 10:48 DC 04/12/21 17:41 325 MG Fluconazole (Diflucan) 50 mg DAILY 04/08/21 18:00 04/14/21 17:59 DC 04/14/21 09:42 50 MG Heparin Sodium (Porcine) (Heparin Sodium) 5,000 unit Q8HRS 04/15/21 22:00 04/20/21 05:40 5,000 UNIT Info (PHARMACY MONITORING -- do not chart) 1 each PRN DAILY PRN 04/18/21 08:00 Cancel Insulin Glargine (Lantus Syringe) 8 unit QHS 04/05/21 23:00 04/19/21 21:24 8 UNIT Insulin Human Lispro (HumaLOG) 0-7 UNITS TIDWMEALS 04/06/21 08:00 04/15/21 12:18 4 UNITS Iron Sucrose 500 mg/Sodium Chloride 275 ml @ 78.571 mls/ hr 1X ONCE 04/13/21 11:00 04/13/21 14:29 DC 04/13/21 11:53 78.571 MLS/HR Lactobacillus Rhamnosus (Culturelle) 1 cap BID 04/06/21 09:00 04/20/21 09:56 1 CAP Lidocaine/ Epinephrine (LIDOCAINE 1%-EPI 1:100,000 Multi-Dose) 18 ml 1X ONCE 04/10/21 14:30 04/10/21 14:31 DC 04/10/21 14:00 18 ML Lidocaine/ Epinephrine (LIDOCAINE 2%-EPI 1:100,000 multi-dose) 13 ml 1X ONCE 04/10/21 14:15 04/10/21 14:23 DC Midazolam HCl (Versed) 1 mg 1X ONCE 04/10/21 14:15 04/10/21 14:16 DC 04/10/21 14:20 1 MG Olanzapine (ZyPREXA ZYDIS) 5 mg PRN BID PRN 04/05/21 19:45 Ondansetron HCl (Zofran) 4 mg PRN Q4HRS PRN 04/05/21 19:45 04/19/21 21:22 4 MG Oxybutynin Chloride (Ditropan) 5 mg [id number] 04/11/21 11:00 04/20/21 09:56 5 MG Pantoprazole Sodium (Protonix) 40 mg DAILY07 04/06/21 07:00 04/20/21 05:40 40 MG Polyethylene Glycol (miraLAX PACKET) 17 gm PRN DAILY PRN 04/05/21 22:30 Sodium Chloride 1,000 ml @ 400 mls/hr Q2H30M PRN 04/18/21 08:00 04/18/21 19:59 DC Sodium Chloride (Normal Saline Flush) 10 ml 1X PRN PRN 04/13/21 08:00 04/14/21 07:59 DC Vitamin B Complex/ Vitamin C (Eugenia-Randy) 1 tab DAILY 04/12/21 12:00 04/20/21 09:56 1 TAB Lab Laboratory Tests Test 04/19/21 11:33 04/19/21 16:57 04/19/21 21:30 04/20/21 08:43 Glucose (Fingerstick) 123 mg/dL (70-99) 106 mg/dL (70-99) 95 mg/dL (70-99) 97 mg/dL (70-99) Results All relevant outside records, renal labs, imaging studies, telemetry/EKG's were reviewed. Justicifation of Admission Dx: Justifications for Admission: Justification of Admission Dx: Yes Acute Renal Failure: RF Can't Be Managed Outpt Chronic Renal Failure: Renail Failure MEREDITH CULP MD Apr 20, 2021 11:18
--- NOTE | 2021-04-20 12:32 | PDOC ---
[employer] PROGRESS NOTE Date of Service DOS: DATE: 04/20/21 TIME: 12:31 Chief Complaint Chief Complaint Acute Kidney Injury Hypotension UTI Laceration to head HTN, diabetes type 2, lymphedema, obesity, OA COVID 19 History of Present Illness History of Present Illness 80yo female with PMHx afib, prior DVT/PE, OA, CKD, HTN, DM2 who comes to ED via EMS from her nursing facility [facility] for fall at SNF and abnormal urine and labs. She fell out of bed while her diaper was being changed the night prior to admission, notes she has bruises to left knee, left elbow, left flank scabbed abrasion to left scalp she thinks tore open. She think she had negative imaging prior to transfer to ED. She did not have loss of consciousness. Patient denies neck pain or head pain. Her only complaints are memory difficulties, weakness and debility and gluteal pain Patient does have a Navarro catheter in place and a tunneled single lumen RIJ, she notes since a discharge on 03/06 for debility she had Urology follow up and was admitted to [facility], does not recall most of her stay and does not know why she has a tunneled line in her right chest wall, does not think she is being given meds 04/09: Nephrology and urology consulted. Has chronic uretal stents bilaterally and getting tunneled catheter placed for HD. 04/10: Patient evaluated examined at bedside. Creatinine still quite elevated. Tunnel cath requested for today and HD tomorrow per nephrology. Continue current plan otherwise. When I saw patient she was resting in bed without much complaint. 04/12: Patient evaluated during dialysis. BUN and Creatinine are trending down since starting dialysis. Continue current plan. 04/13: Patient seen and examined at [facility] after her dialysis. Patient is doing well. 04/14: Patient seen at [facility]. She is doing well, awaiting acceptance into nursing facility. Chair time has been scheduled at [facility]. 04/15: Outpatient dialysis has been set-up at [facility]. 04/16: Needs SNF, has outpatient dialysis set up 04/17: Rapid COVID 19 returns positive, plans for dc to SNF and outpatient dialysis 04/18: Hemodialysis. No significant complaints. COVID-19 was positive on repeat testing. She is not currently hypoxic and not feel any symptoms 04/19: Orthostatic positive with therapy today. She just feels weak overall and feels her neck is weak. No loss of manager payer strength. Needs rehab. 04/20: Still orthostatic positive. She is a little stronger today but still profoundly weak. Still needs rehab. Hold antihypertensives and started midodrine today. Vitals/I&O Vitals/I&O: Vital Signs Date Time Temp Pulse Resp B/P (MAP) Pulse Ox O2 Delivery O2 Flow Rate FiO2 04/20/21 11:00 96.5 80 16 103/53 (70) 99 Room Air 96.5 I & O 04/19/21 04/19/21 04/20/21 15:00 23:00 07:00 Intake Total 118 ml 237 ml 120 ml Balance 118 ml 237 ml 120 ml Physical Exam General: Cooperative, No acute distress Heart: Regular rate Lungs: Clear Abdomen: Normal bowel sounds, No tenderness Extremities: No clubbing Skin: No breakdown Labs Labs: Laboratory Tests Test 04/19/21 16:57 04/19/21 21:30 04/20/21 08:43 04/20/21 12:01 Glucose (Fingerstick) 106 mg/dL (70-99) 95 mg/dL (70-99) 97 mg/dL (70-99) 146 mg/dL (70-99) Assessment and Plan Assessmemt and Plan Problems Medical Problems: (1) Acute renal failure Status: Acute Comment Review of Relevant I have reviewed the following items edis (where applicable) has been applied. Justifications for Admission Other Justification LAURIE GIBSON MD Apr 20, 2021 12:32
--- NOTE | 2021-04-20 13:24 | NUR ---
SS following up with discharge planning. SS reviewed pt chart and discussed with pt RN. Pt is currently on room air. COVID19 positive. PT/OT recommending alf unit. Hemodialysis. Pt continuing to have dizziness with therapy. Pt accepted at [facility], ; fax [phone], and can admit on 04/28/2021 once ten days post COVID19 positive test. Pt has outpatient hemodialysis set up at [facility], ; fax [phone], Friday, Friday, and Friday. Facility reported that pt is cleared to start services on 04/30/2021. SS will continue to follow for discharge planning.
[2021-04-20] MEDS ORDERED: DIALYSIS PATIENT. MC PRN ×2 (13:45)
[2021-04-20] MEDS ORDERED: IV NORMAL SALINE 1000ML BAG 1,000 ML IV PRN ×2 (13:45)
[2021-04-20] MEDS ORDERED: 0.9 % SODIUM CHLORIDE 10 ML DISP.SYRIN. IV PRN ×2 (13:45)
[2021-04-20] MEDS ORDERED: ALBUMIN HUMAN 25% 200 ML IV PRN (13:45)
[2021-04-20] MEDS: MIDODRINE 2.5 MG TABLET PO SCH ×2 (13:55→21:07)
[2021-04-20] MEDS: ACETAMINOPHEN 325 MG TABLET. PO PRN (14:37)
[2021-04-20 15:00] VITALS: BP 108/54
[2021-04-20 15:16] LABS: CALCIUM 8.1 mg/dL (8.5-10.1); CREATININE 5.2 mg/dL (0.6-1.0); POTASSIUM 4.3 mmol/L (3.5-5.1)
[2021-04-20 19:31] VITALS: BP 89/50
[2021-04-20] MEDS: ATORVASTATIN CALCIUM 40 MG TABLET. PO SCH (21:07)
[2021-04-20] MEDS: INSULIN GLARGINE SYRINGE. SQ SCH (21:10)
[2021-04-20] MEDS: EPOETIN ALFA-EPBX for ESRD 20,000 UNIT/ML VIAL. SQ SCH (21:10)
[2021-04-20 22:57] VITALS: BP 92/54
[2021-04-21 02:55] VITALS: BP 110/52
--- NOTE | 2021-04-21 03:00 | NUR ---
REMOVED HDEZ THAT PT CAME INTO HOSPITAL. REPLACED W 16FR 10CC. PUS AND BLOOD CAME OUT INTO HDEZ BAG. PT TOLERATED W MAX DISCOMFORT. HDEZ THAT WAS REMOVED THE BALLOON WAS DEFLATED, NOTHING TO BE DEFLATED IN PROCESS. LCRN
[2021-04-21] MEDS: HEPARIN for SUB-Q USE 5,000 UNIT/ML VIAL. SQ SCH ×3 (06:00→21:25)
[2021-04-21] MEDS: MIDODRINE 2.5 MG TABLET PO SCH ×4 (06:22→16:51)
[2021-04-21] MEDS: PANTOPRAZOLE 40 MG TABLET.DR. PO SCH (06:22)
[2021-04-21 07:53] VITALS: BP 98/52
[2021-04-21] MEDS: INSULIN LISPRO 300 UNITS/3 ML VIAL. SQ SCH ×3 (07:56→16:47)
[2021-04-21] MEDS: OXYBUTYNIN CHLORIDE 5 MG TABLET PO SCH ×3 (08:38→21:24)
[2021-04-21] MEDS: FOLIC/VIT B COMP W-C (RENAL) TABLET. PO SCH (08:38)
[2021-04-21] MEDS: LACTOBACILLUS RHAMNOSUS GG 1 CAPSULE. PO SCH ×2 (08:38→21:24)
[2021-04-21 10:33] VITALS: BP 101/54
--- NOTE | 2021-04-21 10:58 | PDOC ---
[employer] PROGRESS NOTE Date of Service DOS: DATE: 04/21/21 TIME: 10:57 Chief Complaint Chief Complaint Acute Kidney Injury Hypotension UTI Laceration to head HTN, diabetes type 2, lymphedema, obesity, OA COVID 19 History of Present Illness History of Present Illness 80yo female with PMHx afib, prior DVT/PE, OA, CKD, HTN, DM2 who comes to ED via EMS from her nursing facility [facility] for fall at SNF and abnormal urine and labs. She fell out of bed while her diaper was being changed the night prior to admission, notes she has bruises to left knee, left elbow, left flank scabbed abrasion to left scalp she thinks tore open. She think she had negative imaging prior to transfer to ED. She did not have loss of consciousness. Patient denies neck pain or head pain. Her only complaints are memory difficulties, weakness and debility and gluteal pain Patient does have a Navarro catheter in place and a tunneled single lumen RIJ, she notes since a discharge on 03/06 for debility she had Urology follow up and was admitted to [facility], does not recall most of her stay and does not know why she has a tunneled line in her right chest wall, does not think she is being given meds 04/09: Nephrology and urology consulted. Has chronic uretal stents bilaterally and getting tunneled catheter placed for HD. 04/10: Patient evaluated examined at bedside. Creatinine still quite elevated. Tunnel cath requested for today and HD tomorrow per nephrology. Continue current plan otherwise. When I saw patient she was resting in bed without much complaint. 04/12: Patient evaluated during dialysis. BUN and Creatinine are trending down since starting dialysis. Continue current plan. 04/13: Patient seen and examined at [facility] after her dialysis. Patient is doing well. 04/14: Patient seen at [facility]. She is doing well, awaiting acceptance into nursing facility. Chair time has been scheduled at [facility]. 04/15: Outpatient dialysis has been set-up at [facility]. 04/16: Needs SNF, has outpatient dialysis set up 04/17: Rapid COVID 19 returns positive, plans for dc to SNF and outpatient dialysis 04/18: Hemodialysis. No significant complaints. COVID-19 was positive on repeat testing. She is not currently hypoxic and not feel any symptoms 04/19: Orthostatic positive with therapy today. She just feels weak overall and feels her neck is weak. No loss of safety professional strength. Needs rehab. 04/20: Still orthostatic positive. She is a little stronger today but still profoundly weak. Still needs rehab. Hold antihypertensives and started midodrine today. 04/21: Still fairly orthostatic and very weak. She needs help getting up in bed and eating today. Started on midodrine. Needs continued dialysis. Vitals/I&O Vitals/I&O: Vital Signs Date Time Temp Pulse Resp B/P (MAP) Pulse Ox O2 Delivery O2 Flow Rate FiO2 04/21/21 10:33 98.0 75 20 101/54 (70) 98 Nasal Cannula 2.0 98.0 I & O 04/20/21 04/20/21 04/21/21 15:00 23:00 07:00 Intake Total 510 ml 200 ml 0 ml Output Total 200 ml Balance 510 ml 200 ml -200 ml Physical Exam General: Cooperative, No acute distress Heart: Regular rate Lungs: Clear Abdomen: Normal bowel sounds, No tenderness Extremities: No clubbing Skin: No breakdown Labs Labs: Laboratory Tests Test 04/20/21 12:01 04/20/21 14:47 04/21/21 08:21 04/21/21 10:34 Glucose (Fingerstick) 146 mg/dL (70-99) 106 mg/dL (70-99) 100 mg/dL (70-99) Sodium Level 138 mmol/L (136-145) Potassium Level 4.3 mmol/L (3.5-5.1) Chloride Level 102 mmol/L (98-107) Carbon Dioxide Level 28 mmol/L (21-32) Anion Gap 8 (6-14) Blood Urea Nitrogen 23 mg/dL (7-20) Creatinine 5.2 mg/dL (0.6-1.0) Estimated GFR (Cockcroft-Gault) 8.0 Glucose Level 147 mg/dL (70-99) Calcium Level 8.1 mg/dL (8.5-10.1) Assessment and Plan Assessmemt and Plan Problems Medical Problems: (1) Acute renal failure Status: Acute Comment Review of Relevant I have reviewed the following items edis (where applicable) has been applied. Medications: Current Medications Medications (Trade) Dose Ordered Sig/Angy Route PRN Reason Start Time Stop Time Status Last Admin Dose Admin Midodrine (Proamatine) 2.5 mg [id number] PO 04/20/21 13:00 04/21/21 06:22 Justifications for Admission Other Justification LAURIE GIBSON MD Apr 21, 2021 10:57
--- NOTE | 2021-04-21 13:12 | PDOC ---
DATE OF SERVICE: DOS: DATE: 04/21/21 TIME: 13:09 SUBJECTIVE ROS Follow-up on new onset ESRD Patient remains in COVID-19 respiratory isolation status at this time. Review of systems unable to be obtained OBJECTIVE Vital Signs Vital Signs Date Time Temp Pulse Resp B/P (MAP) Pulse Ox O2 Delivery O2 Flow Rate FiO2 04/21/21 10:33 98.0 75 20 101/54 (70) 98 Nasal Cannula 2.0 98.0 I & 0 Intake and Output 04/21/21 06:59 Intake Total 710 ml Output Total 200 ml Balance 510 ml Intake Oral 710 ml Output Urine Total 200 ml PHYSICAL EXAM Physical Exam Patient remains in COVID-19 associated respiratory isolation and physical exam was unable to be performed. This was reviewed as documented by other providers and corroborated with the nurse DIAGNOSIS/ASSESSMENT Assessment & Plan New onset ESRD: Current fluid and E-lyte status does not necessitate emergent need for dialysis. Will re-evaluate for dialysis in the am and continue on Friday schedule. Will follow-up on Friday COMMENT/RELEVANT DATA Meds Current Medications Medications (Trade) Dose Ordered Sig/Angy Start Time Stop Time Status Last Admin Dose Admin Acetaminophen (Tylenol) 650 mg PRN Q6HRS PRN 04/05/21 19:45 04/20/21 14:37 650 MG Albumin Human 200 ml @ 200 mls/hr 1X PRN PRN 04/20/21 13:45 04/20/21 19:44 DC Amlodipine Besylate (Norvasc) 5 mg DAILY 04/06/21 09:00 04/20/21 12:31 DC 04/19/21 10:28 5 MG Atorvastatin Calcium (Lipitor) 40 mg QHS 04/05/21 23:00 04/20/21 21:07 40 MG Cefazolin Sodium/ Dextrose 50 ml @ 100 mls/hr 1X ONCE 04/10/21 14:15 04/10/21 14:44 DC 04/10/21 14:21 100 MLS/HR Ceftriaxone Sodium (Rocephin) 1 gm DAILY 04/06/21 09:00 04/09/21 13:37 DC 04/09/21 12:00 1 GM Dextrose (Dextrose 50%-Water Syringe) 12.5 gm PRN Q15MIN PRN 04/05/21 22:30 Epoetin Romulo-epbx (RETACRIT for ESRD PTS) 10,000 unit MoWeFr@2100 04/13/21 21:00 04/20/21 21:10 10,000 UNIT Fentanyl Citrate (Fentanyl 2ml Vial) 50 mcg 1X ONCE 04/10/21 14:15 04/10/21 14:16 DC 04/10/21 14:20 50 MCG Ferrous Sulfate (Feosol) 325 mg BIDWMEALS 04/06/21 08:00 04/13/21 10:48 DC 04/12/21 17:41 325 MG Fluconazole (Diflucan) 50 mg DAILY 04/08/21 18:00 04/14/21 17:59 DC 04/14/21 09:42 50 MG Heparin Sodium (Porcine) (Heparin Sodium) 5,000 unit Q8HRS 04/15/21 22:00 04/21/21 12:52 5,000 UNIT Info (PHARMACY MONITORING -- do not chart) 1 each PRN DAILY PRN 04/20/21 13:45 UNV Insulin Glargine (Lantus Syringe) 8 unit QHS 04/05/21 23:00 04/20/21 21:10 8 UNIT Insulin Human Lispro (HumaLOG) 0-7 UNITS TIDWMEALS 04/06/21 08:00 04/15/21 12:18 4 UNITS Iron Sucrose 500 mg/Sodium Chloride 275 ml @ 78.571 mls/ hr 1X ONCE 04/13/21 11:00 04/13/21 14:29 DC 04/13/21 11:53 78.571 MLS/HR Lactobacillus Rhamnosus (Culturelle) 1 cap BID 04/06/21 09:00 04/21/21 08:38 1 CAP Lidocaine/ Epinephrine (LIDOCAINE 1%-EPI 1:100,000 Multi-Dose) 18 ml 1X ONCE 04/10/21 14:30 04/10/21 14:31 DC 04/10/21 14:00 18 ML Lidocaine/ Epinephrine (LIDOCAINE 2%-EPI 1:100,000 multi-dose) 13 ml 1X ONCE 04/10/21 14:15 04/10/21 14:23 DC Midazolam HCl (Versed) 1 mg 1X ONCE 04/10/21 14:15 04/10/21 14:16 DC 04/10/21 14:20 1 MG Midodrine (Proamatine) 2.5 mg [id number] 04/20/21 13:00 04/21/21 06:22 2.5 MG Olanzapine (ZyPREXA ZYDIS) 5 mg PRN BID PRN 04/05/21 19:45 Ondansetron HCl (Zofran) 4 mg PRN Q4HRS PRN 04/05/21 19:45 04/19/21 21:22 4 MG Oxybutynin Chloride (Ditropan) 5 mg [id number] 04/11/21 11:00 04/21/21 12:49 5 MG Pantoprazole Sodium (Protonix) 40 mg DAILY07 04/06/21 07:00 04/21/21 06:22 40 MG Polyethylene Glycol (miraLAX PACKET) 17 gm PRN DAILY PRN 04/05/21 22:30 Sodium Chloride 1,000 ml @ 400 mls/hr Q2H30M PRN 04/20/21 13:45 04/21/21 01:44 DC Sodium Chloride (Normal Saline Flush) 10 ml 1X PRN PRN 04/20/21 13:45 04/21/21 13:44 Vitamin B Complex/ Vitamin C (Eugenia-Randy) 1 tab DAILY 04/12/21 12:00 04/21/21 08:38 1 TAB Lab Laboratory Tests Test 04/20/21 14:47 04/21/21 08:21 04/21/21 10:34 Sodium Level 138 mmol/L (136-145) Potassium Level 4.3 mmol/L (3.5-5.1) Chloride Level 102 mmol/L (98-107) Carbon Dioxide Level 28 mmol/L (21-32) Anion Gap 8 (6-14) Blood Urea Nitrogen 23 mg/dL (7-20) Creatinine 5.2 mg/dL (0.6-1.0) Estimated GFR (Cockcroft-Gault) 8.0 Glucose Level 147 mg/dL (70-99) Calcium Level 8.1 mg/dL (8.5-10.1) Glucose (Fingerstick) 106 mg/dL (70-99) 100 mg/dL (70-99) Results All relevant outside records, renal labs, imaging studies, telemetry/EKG's were reviewed. Justicifation of Admission Dx: Justifications for Admission: Justification of Admission Dx: Yes Acute Renal Failure: RF Can't Be Managed Outpt Chronic Renal Failure: Renail Failure LACEY MALDONADO MD Apr 21, 2021 13:12
[2021-04-21 14:11] VITALS: BP 102/51
[2021-04-21 19:38] VITALS: BP 106/54
[2021-04-21] MEDS: ATORVASTATIN CALCIUM 40 MG TABLET. PO SCH (21:24)
[2021-04-21] MEDS: INSULIN GLARGINE SYRINGE. SQ SCH (21:26)
[2021-04-21 23:47] VITALS: BP 142/63
[2021-04-22 03:44] VITALS: BP 139/62
[2021-04-22] MEDS: PANTOPRAZOLE 40 MG TABLET.DR. PO SCH (06:21)
[2021-04-22] MEDS: HEPARIN for SUB-Q USE 5,000 UNIT/ML VIAL. SQ SCH ×3 (06:25→19:57)
[2021-04-22] MEDS: MIDODRINE 2.5 MG TABLET PO SCH ×3 (06:28→18:00)
[2021-04-22 07:30] VITALS: BP 138/65
[2021-04-22] MEDS: INSULIN LISPRO 300 UNITS/3 ML VIAL. SQ SCH ×3 (07:41→16:59)
[2021-04-22] MEDS: LACTOBACILLUS RHAMNOSUS GG 1 CAPSULE. PO SCH ×2 (09:41→19:55)
[2021-04-22] MEDS: FOLIC/VIT B COMP W-C (RENAL) TABLET. PO SCH (09:41)
[2021-04-22] MEDS: OXYBUTYNIN CHLORIDE 5 MG TABLET PO SCH ×3 (09:41→19:55)
[2021-04-22 10:56] VITALS: BP 99/64
--- NOTE | 2021-04-22 13:39 | PDOC ---
[employer] PROGRESS NOTE Date of Service DOS: DATE: 04/22/21 TIME: 13:08 Chief Complaint Chief Complaint Acute Kidney Injury Hypotension UTI Laceration to head HTN Diabetes type 2 Lymphedema Obesity OA COVID 19 History of Present Illness History of Present Illness 80yo female with PMHx afib, prior DVT/PE, OA, CKD, HTN, DM2 who comes to ED via EMS from her nursing facility [facility] for fall at SNF and abnormal urine and labs. She fell out of bed while her diaper was being changed the night prior to admission, notes she has bruises to left knee, left elbow, left flank scabbed abrasion to left scalp she thinks tore open. She think she had negative imaging prior to transfer to ED. She did not have loss of consciousness. Patient denies neck pain or head pain. Her only complaints are memory difficulties, weakness and debility and gluteal pain Patient does have a Navarro catheter in place and a tunneled single lumen RIJ, she notes since a discharge on 03/06 for debility she had Urology follow up and was admitted to [facility], does not recall most of her stay and does not know why she has a tunneled line in her right chest wall, does not think she is being given meds 04/09: Nephrology and urology consulted. Has chronic uretal stents bilaterally and getting tunneled catheter placed for HD. 04/10: Patient evaluated examined at bedside. Creatinine still quite elevated. Tunnel cath requested for today and HD tomorrow per nephrology. Continue current plan otherwise. When I saw patient she was resting in bed without much complaint. 04/12: Patient evaluated during dialysis. BUN and Creatinine are trending down since starting dialysis. Continue current plan. 04/13: Patient seen and examined at [facility] after her dialysis. Patient is doing well. 04/14: Patient seen at [facility]. She is doing well, awaiting acceptance into nursing facility. Chair time has been scheduled at [facility]. 04/15: Outpatient dialysis has been set-up at [facility]. 04/16: Needs SNF, has outpatient dialysis set up 04/17: Rapid COVID 19 returns positive, plans for dc to SNF and outpatient dialysis 04/18: Hemodialysis. No significant complaints. COVID-19 was positive on repeat testing. She is not currently hypoxic and not feel any symptoms 04/19: Orthostatic positive with therapy today. She just feels weak overall and feels her neck is weak. 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 Needs rehab. 04/20: Still orthostatic positive. She is a little stronger today but still profoundly weak. Still needs rehab. Hold antihypertensives and started midodrine today. 04/21: Still fairly orthostatic and very weak. She needs help getting up in bed and eating today. Started on midodrine. Needs continued dialysis. 04/22: Orthostasis minimally improved. Still feeling very weak. Navarro with no urine output replaced into the urinary bladder with some urine output nearly 100 cc. Vitals/I&O Vitals/I&O: Vital Signs Date Time Temp Pulse Resp B/P (MAP) Pulse Ox O2 Delivery O2 Flow Rate FiO2 04/22/21 10:56 98.2 88 16 99/64 (76) 97 Room Air 98.2 04/22/21 03:44 2.0 I & O 04/21/21 04/21/21 04/22/21 15:00 23:00 07:00 Intake Total 240 ml 240 ml Output Total 2 ml 0 ml Balance 238 ml 240 ml Physical Exam General: Cooperative, No acute distress Heart: Regular rate Lungs: Clear Abdomen: Normal bowel sounds, No tenderness Extremities: No clubbing Skin: No breakdown Labs Labs: Laboratory Tests Test 04/21/21 17:06 04/21/21 20:55 04/22/21 07:28 Glucose (Fingerstick) 104 mg/dL (70-99) 99 mg/dL (70-99) 99 mg/dL (70-99) Assessment and Plan Assessmemt and Plan Problems Medical Problems: (1) Acute renal failure Status: Acute Comment Review of Relevant I have reviewed the following items edis (where applicable) has been applied. Justifications for Admission Other Justification LAURIE GIBSON MD Apr 22, 2021 13:39
[2021-04-22 14:52] VITALS: BP 108/53
[2021-04-22 19:39] VITALS: BP 112/55
[2021-04-22] MEDS: ATORVASTATIN CALCIUM 40 MG TABLET. PO SCH (19:55)
[2021-04-22] MEDS: INSULIN GLARGINE SYRINGE. SQ SCH (19:56)
[2021-04-22 22:50] VITALS: BP 135/62
[2021-04-23 02:51] VITALS: BP 105/54
[2021-04-23] MEDS: HEPARIN for SUB-Q USE 5,000 UNIT/ML VIAL. SQ SCH ×3 (05:04→19:25)
[2021-04-23] MEDS: MIDODRINE 2.5 MG TABLET PO SCH ×3 (05:08→18:00)
[2021-04-23 05:49] LABS: CALCIUM 8.4 mg/dL (8.5-10.1); GFR 6.7
[2021-04-23 07:25] VITALS: BP 119/55
[2021-04-23] MEDS: INSULIN LISPRO 300 UNITS/3 ML VIAL. SQ SCH ×3 (07:35→17:00)
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
[2021-04-23] MEDS ORDERED: DIALYSIS PATIENT. MC PRN (08:45)
[2021-04-23] MEDS ORDERED: ALBUMIN HUMAN 25% 200 ML IV PRN (08:45)
[2021-04-23] MEDS ORDERED: IV NORMAL SALINE 1000ML BAG 1,000 ML IV PRN ×2 (08:45)
[2021-04-23] MEDS: OXYBUTYNIN CHLORIDE 5 MG TABLET PO SCH ×3 (09:00→19:25)
[2021-04-23] MEDS: LACTOBACILLUS RHAMNOSUS GG 1 CAPSULE. PO SCH ×2 (09:00→19:25)
--- NOTE | 2021-04-23 10:23 | PDOC ---
DATE OF SERVICE DATE: 04/23/21 TIME: 10: SUBJECTIVE ROS No complaints during dialysis Denies SOB, No N/V OBJECTIVE Vital Signs Vital Signs Date Time Temp Pulse Resp B/P (MAP) Pulse Ox O2 Delivery O2 Flow Rate FiO2 04/23/21 07:25 97.4 81 18 119/55 (76) 100 Room Air 97.4 I & 0 Intake and Output 04/23/21 07:00 Intake Total 60 ml Output Total 300 ml Balance -240 ml Intake Oral 60 ml Output Urine Total 300 ml # Bowel Movements 2 PHYSICAL EXAM Physical Exam General Appearance: no apparent distress,resting comfortably Skin: warm Respiratory: bilateral CTA Heart: S1S2 Abdomen: soft, bowel sounds present Genitourinary: figueredo + Extremities: pulses present Neurology: alert DIAGNOSIS/ASSESSMENT Assessment & Plan New Onset ESRD- on HD MWF , seen during treatment , tolerating well. Continue as ordered. Mustapha MANDUJANO Access Tunneled HDC . OP chair MWF @ [facility] 3 rd shift CoVid Rapid- positive on 04/17 UTI POA Hydronephrosis - S/P Bilateral Ureteral stents . Defer fu with Urology HX of PAfib Anemia - On BEATRICE ,Recd IV Venofer HTN- currently Low normal . DM II Per PT- Pt was orthostatic and unable to walk DC per Primary, awaiting placement COMMENT/RELEVANT DATA Meds Current Medications Medications (Trade) Dose Ordered Sig/Angy Start Time Stop Time Status Last Admin Dose Admin Acetaminophen (Tylenol) 650 mg PRN Q6HRS PRN 04/05/21 19:45 04/20/21 14:37 650 MG Albumin Human 200 ml @ 200 mls/hr 1X PRN PRN 04/23/21 08:45 04/23/21 14:44 Amlodipine Besylate (Norvasc) 5 mg DAILY 04/06/21 09:00 04/20/21 12:31 DC 04/19/21 10:28 5 MG Atorvastatin Calcium (Lipitor) 40 mg QHS 04/05/21 23:00 04/22/21 19:55 40 MG Cefazolin Sodium/ Dextrose 50 ml @ 100 mls/hr 1X ONCE 04/10/21 14:15 04/10/21 14:44 DC 04/10/21 14:21 100 MLS/HR Ceftriaxone Sodium (Rocephin) 1 gm DAILY 04/06/21 09:00 04/09/21 13:37 DC 04/09/21 12:00 1 GM Dextrose (Dextrose 50%-Water Syringe) 12.5 gm PRN Q15MIN PRN 04/05/21 22:30 Epoetin Romulo-epbx (RETACRIT for ESRD PTS) 10,000 unit MoWeFr@2100 04/13/21 21:00 04/20/21 21:10 10,000 UNIT Fentanyl Citrate (Fentanyl 2ml Vial) 50 mcg 1X ONCE 04/10/21 14:15 04/10/21 14:16 DC 04/10/21 14:20 50 MCG Ferrous Sulfate (Feosol) 325 mg BIDWMEALS 04/06/21 08:00 04/13/21 10:48 DC 04/12/21 17:41 325 MG Fluconazole (Diflucan) 50 mg DAILY 04/08/21 18:00 04/14/21 17:59 DC 04/14/21 09:42 50 MG Heparin Sodium (Porcine) (Heparin Sodium) 5,000 unit Q8HRS 04/15/21 22:00 04/23/21 05:04 5,000 UNIT Info (PHARMACY MONITORING -- do not chart) 1 each PRN DAILY PRN 04/23/21 08:45 UNV Insulin Glargine (Lantus Syringe) 8 unit QHS 04/05/21 23:00 04/22/21 19:56 8 UNIT Insulin Human Lispro (HumaLOG) 0-7 UNITS TIDWMEALS 04/06/21 08:00 04/15/21 12:18 4 UNITS Iron Sucrose 500 mg/Sodium Chloride 275 ml @ 78.571 mls/ hr 1X ONCE 04/13/21 11:00 04/13/21 14:29 DC 04/13/21 11:53 78.571 MLS/HR Lactobacillus Rhamnosus (Culturelle) 1 cap BID 04/06/21 09:00 04/22/21 19:55 1 CAP Lidocaine/ Epinephrine (LIDOCAINE 1%-EPI 1:100,000 Multi-Dose) 18 ml 1X ONCE 04/10/21 14:30 04/10/21 14:31 DC 04/10/21 14:00 18 ML Lidocaine/ Epinephrine (LIDOCAINE 2%-EPI 1:100,000 multi-dose) 13 ml 1X ONCE 04/10/21 14:15 04/10/21 14:23 DC Midazolam HCl (Versed) 1 mg 1X ONCE 04/10/21 14:15 04/10/21 14:16 DC 04/10/21 14:20 1 MG Midodrine (Proamatine) 2.5 mg [id number] 04/20/21 13:00 04/23/21 05:08 2.5 MG Olanzapine (ZyPREXA ZYDIS) 5 mg PRN BID PRN 04/05/21 19:45 Ondansetron HCl (Zofran) 4 mg PRN Q4HRS PRN 04/05/21 19:45 04/19/21 21:22 4 MG Oxybutynin Chloride (Ditropan) 5 mg [id number] 04/11/21 11:00 04/22/21 19:55 5 MG Pantoprazole Sodium (Protonix) 40 mg DAILY07 04/06/21 07:00 04/22/21 06:21 40 MG Polyethylene Glycol (miraLAX PACKET) 17 gm PRN DAILY PRN 04/05/21 22:30 Sodium Chloride 1,000 ml @ 400 mls/hr Q2H30M PRN 04/23/21 08:45 04/23/21 20:44 Sodium Chloride (Normal Saline Flush) 10 ml 1X PRN PRN 04/20/21 13:45 04/21/21 13:44 DC Vitamin B Complex/ Vitamin C (Eugenia-Randy) 1 tab DAILY 04/12/21 12:00 04/22/21 09:41 1 TAB Lab Laboratory Tests Test 04/22/21 16:30 04/22/21 19:53 04/23/21 04:10 04/23/21 07:27 Glucose (Fingerstick) 118 mg/dL (70-99) 130 mg/dL (70-99) 108 mg/dL (70-99) Sodium Level 139 mmol/L (136-145) Potassium Level 4.0 mmol/L (3.5-5.1) Chloride Level 100 mmol/L (98-107) Carbon Dioxide Level 26 mmol/L (21-32) Anion Gap 13 (6-14) Blood Urea Nitrogen 27 mg/dL (7-20) Creatinine 6.0 mg/dL (0.6-1.0) Estimated GFR (Cockcroft-Gault) 6.7 Glucose Level 97 mg/dL (70-99) Calcium Level 8.4 mg/dL (8.5-10.1) Results All relevant outside records, renal labs, imaging studies, telemetry/EKG's were reviewed. Justicifation of Admission Dx: Justifications for Admission: Justification of Admission Dx: Yes Acute Renal Failure: RF Can't Be Managed Outpt Chronic Renal Failure: Renail Failure MEREDITH CULP MD Apr 23, 2021 10:23
--- NOTE | 2021-04-23 11:36 | PDOC ---
[employer] PROGRESS NOTE Date of Service DOS: DATE: 04/23/21 TIME: 11:35 Chief Complaint Chief Complaint Acute Kidney Injury Hypotension UTI Laceration to head HTN Diabetes type 2 Lymphedema Obesity OA COVID 19 History of Present Illness History of Present Illness 80yo female with PMHx afib, prior DVT/PE, OA, CKD, HTN, DM2 who comes to ED via EMS from her nursing facility [facility] for fall at SNF and abnormal urine and labs. She fell out of bed while her diaper was being changed the night prior to admission, notes she has bruises to left knee, left elbow, left flank scabbed abrasion to left scalp she thinks tore open. She think she had negative imaging prior to transfer to ED. She did not have loss of consciousness. Patient denies neck pain or head pain. Her only complaints are memory difficulties, weakness and debility and gluteal pain Patient does have a Navarro catheter in place and a tunneled single lumen RIJ, she notes since a discharge on 03/06 for debility she had Urology follow up and was admitted to [facility], does not recall most of her stay and does not know why she has a tunneled line in her right chest wall, does not think she is being given meds 04/09: Nephrology and urology consulted. Has chronic uretal stents bilaterally and getting tunneled catheter placed for HD. 04/10: Patient evaluated examined at bedside. Creatinine still quite elevated. Tunnel cath requested for today and HD tomorrow per nephrology. Continue current plan otherwise. When I saw patient she was resting in bed without much complaint. 04/12: Patient evaluated during dialysis. BUN and Creatinine are trending down since starting dialysis. Continue current plan. 04/13: Patient seen and examined at [facility] after her dialysis. Patient is doing well. 04/14: Patient seen at [facility]. She is doing well, awaiting acceptance into nursing facility. Chair time has been scheduled at [facility]. 04/15: Outpatient dialysis has been set-up at [facility]. 04/16: Needs SNF, has outpatient dialysis set up 04/17: Rapid COVID 19 returns positive, plans for dc to SNF and outpatient dialysis 04/18: Hemodialysis. No significant complaints. COVID-19 was positive on repeat testing. She is not currently hypoxic and not feel any symptoms 04/19: Orthostatic positive with therapy today. She just feels weak overall and feels her neck is weak. 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 Needs rehab. 04/20: Still orthostatic positive. She is a little stronger today but still profoundly weak. Still needs rehab. Hold antihypertensives and started midodrine today. 04/21: Still fairly orthostatic and very weak. She needs help getting up in bed and eating today. Started on midodrine. Needs continued dialysis. 04/22: Orthostasis minimally improved. Still feeling very weak. Navarro with no urine output replaced into the urinary bladder with some urine output nearly 100 cc. 04/23 Valuated examined at bedside seen during dialysis. No major complaints today other than ongoing weakness. Looks like she will be able to go to rehab facility once out of Covid window. Otherwise continue current. Vitals/I&O Vitals/I&O: Vital Signs Date Time Temp Pulse Resp B/P (MAP) Pulse Ox O2 Delivery O2 Flow Rate FiO2 04/23/21 08:00 Room Air 2.0 04/23/21 07:25 97.4 81 18 119/55 (76) 100 97.4 I & O 04/22/21 04/22/21 04/23/21 15:00 23:00 07:00 Intake Total 0 ml 60 ml 0 ml Output Total 200 ml 100 ml Balance 0 ml -140 ml -100 ml Physical Exam General: Cooperative, No acute distress Heart: Regular rate Lungs: Clear Abdomen: Normal bowel sounds, No tenderness Extremities: No clubbing Skin: No breakdown Labs Labs: Laboratory Tests Test 04/22/21 16:30 04/22/21 19:53 04/23/21 04:10 04/23/21 07:27 Glucose (Fingerstick) 118 mg/dL (70-99) 130 mg/dL (70-99) 108 mg/dL (70-99) Sodium Level 139 mmol/L (136-145) Potassium Level 4.0 mmol/L (3.5-5.1) Chloride Level 100 mmol/L (98-107) Carbon Dioxide Level 26 mmol/L (21-32) Anion Gap 13 (6-14) Blood Urea Nitrogen 27 mg/dL (7-20) Creatinine 6.0 mg/dL (0.6-1.0) Estimated GFR (Cockcroft-Gault) 6.7 Glucose Level 97 mg/dL (70-99) Calcium Level 8.4 mg/dL (8.5-10.1) Assessment and Plan Assessmemt and Plan Problems Medical Problems: (1) Acute renal failure Status: Acute Comment Review of Relevant I have reviewed the following items edis (where applicable) has been applied. Justifications for Admission Other Justification LAURIE SHARMA MD Apr 23, 2021 11:36
[2021-04-23] MEDS: PANTOPRAZOLE 40 MG TABLET.DR. PO SCH (13:32)
[2021-04-23] MEDS: FOLIC/VIT B COMP W-C (RENAL) TABLET. PO SCH (13:34)
[2021-04-23 14:03] VITALS: BP 101/55
--- NOTE | 2021-04-23 14:33 | NUR ---
SS following up with discharge planning. SS reviewed pt chart and discussed with pt RN. Pt is currently on room air. COVID19 positive. PT/OT recommending snf unit. Hemodialysis. Pt accepted at [facility], ; fax [phone], and can admit on 04/27/2021 once ten days post COVID19 positive test. Pt has outpatient hemodialysis set up at [facility], ; fax [phone], Friday, Friday, and Friday. Facility reported that pt is cleared to start services on 04/30/2021. SS will continue to follow for discharge planning.
[2021-04-23] MEDS: ATORVASTATIN CALCIUM 40 MG TABLET. PO SCH (19:25)
--- NOTE | 2021-04-23 19:25 | NUR ---
patients blood pressure at admission was 159/117 HR-118, a Addendum: 04/23/21 at 1931 by SUSAN HAIDER LPN LPN [id number] patients blood pressure was 159/117 HR-118. when retaken it was 175/108 HR-132. notified Dr. Nieves. He ordered a Cardizem drip per protocol. ROSA ISELA Koehler placed the order and started the Cardizem drip.
[2021-04-23] MEDS: EPOETIN ALFA-EPBX for ESRD 20,000 UNIT/ML VIAL. SQ SCH (19:26)
[2021-04-23 19:54] VITALS: BP 121/60
[2021-04-23 22:54] VITALS: BP 125/68
[2021-04-24 02:56] VITALS: BP 95/57
[2021-04-24] MEDS: MIDODRINE 2.5 MG TABLET PO SCH ×3 (05:02→18:00)
[2021-04-24] MEDS: HEPARIN for SUB-Q USE 5,000 UNIT/ML VIAL. SQ SCH ×3 (05:03→21:42)
[2021-04-24] MEDS: PANTOPRAZOLE 40 MG TABLET.DR. PO SCH (05:04)
[2021-04-24 07:00] VITALS: BP 115/55
[2021-04-24] MEDS: INSULIN LISPRO 300 UNITS/3 ML VIAL. SQ SCH ×3 (07:47→17:00)
[2021-04-24] MEDS: FOLIC/VIT B COMP W-C (RENAL) TABLET. PO SCH (08:40)
[2021-04-24] MEDS: LACTOBACILLUS RHAMNOSUS GG 1 CAPSULE. PO SCH ×2 (08:40→21:41)
[2021-04-24] MEDS: OXYBUTYNIN CHLORIDE 5 MG TABLET PO SCH ×3 (08:40→21:41)
--- NOTE | 2021-04-24 10:40 | NUR ---
SS following up with discharge planning. SS reviewed pt chart and discussed with pt RN. Pt is currently on room air. COVID19 positive. PT/OT recommending intermediate unit. Hemodialysis. Pt accepted at [facility], ; fax [phone], and can admit on 04/27/2021 once ten days post COVID19 positive test. Pt has outpatient hemodialysis set up at [facility], ; fax [phone], Friday, Friday, and Friday. Facility reported that pt is cleared to start services on 04/30/2021. SS will continue to follow for discharge planning.
[2021-04-24 11:00] VITALS: BP 90/53
--- NOTE | 2021-04-24 11:56 | PDOC ---
DATE OF SERVICE DATE: 04/24/21 TIME: 11:55 SUBJECTIVE ROS No complaints Denies SOB, No N/V OBJECTIVE Vital Signs Vital Signs Date Time Temp Pulse Resp B/P (MAP) Pulse Ox O2 Delivery O2 Flow Rate FiO2 04/24/21 11:00 97.1 72 18 90/53 (65) 100 Room Air 97.1 04/24/21 08:00 2.0 I & 0 Intake and Output 04/24/21 07:00 Intake Total 250 ml Output Total 150 ml Balance 100 ml Intake Oral 250 ml Output Urine Total 150 ml # Bowel Movements 1 PHYSICAL EXAM Physical Exam General Appearance: no apparent distress,resting comfortably Skin: warm Respiratory: bilateral CTA Heart: S1S2 Abdomen: soft, bowel sounds present Genitourinary: figueredo + Extremities: pulses present Neurology: alert DIAGNOSIS/ASSESSMENT Assessment & Plan New Onset ESRD- on HD MWF , sNo indication for Dialysis today Access Tunneled HDC . OP chair MWF @ [facility] 3 rd shift CoVid Rapid- positive on 04/17 UTI POA Hydronephrosis - S/P Bilateral Ureteral stents . Defer fu with Urology HX of PAfib Anemia - On BEATRICE ,Recd IV Venofer HTN- currently Low normal . DM II Per PT- Pt was orthostatic and unable to walk DC per Primary, awaiting placement COMMENT/RELEVANT DATA Meds Current Medications Medications (Trade) Dose Ordered Sig/Angy Start Time Stop Time Status Last Admin Dose Admin Acetaminophen (Tylenol) 650 mg PRN Q6HRS PRN 04/05/21 19:45 04/20/21 14:37 650 MG Albumin Human 200 ml @ 200 mls/hr 1X PRN PRN 04/23/21 08:45 04/23/21 14:44 DC Amlodipine Besylate (Norvasc) 5 mg DAILY 04/06/21 09:00 04/20/21 12:31 DC 04/19/21 10:28 5 MG Atorvastatin Calcium (Lipitor) 40 mg QHS 04/05/21 23:00 04/23/21 19:25 40 MG Cefazolin Sodium/ Dextrose 50 ml @ 100 mls/hr 1X ONCE 04/10/21 14:15 04/10/21 14:44 DC 04/10/21 14:21 100 MLS/HR Ceftriaxone Sodium (Rocephin) 1 gm DAILY 04/06/21 09:00 04/09/21 13:37 DC 04/09/21 12:00 1 GM Dextrose (Dextrose 50%-Water Syringe) 12.5 gm PRN Q15MIN PRN 04/05/21 22:30 Epoetin Romulo-epbx (RETACRIT for ESRD PTS) 10,000 unit MoWeFr@2100 04/13/21 21:00 04/23/21 19:26 10,000 UNIT Fentanyl Citrate (Fentanyl 2ml Vial) 50 mcg 1X ONCE 04/10/21 14:15 04/10/21 14:16 DC 04/10/21 14:20 50 MCG Ferrous Sulfate (Feosol) 325 mg BIDWMEALS 04/06/21 08:00 04/13/21 10:48 DC 04/12/21 17:41 325 MG Fluconazole (Diflucan) 50 mg DAILY 04/08/21 18:00 04/14/21 17:59 DC 04/14/21 09:42 50 MG Heparin Sodium (Porcine) (Heparin Sodium) 5,000 unit Q8HRS 04/15/21 22:00 04/24/21 05:03 5,000 UNIT Info (PHARMACY MONITORING -- do not chart) 1 each PRN DAILY PRN 04/23/21 08:45 UNV Insulin Glargine (Lantus Syringe) 8 unit QHS 04/05/21 23:00 04/23/21 15:28 DC 04/22/21 19:56 8 UNIT Insulin Human Lispro (HumaLOG) 0-7 UNITS TIDWMEALS 04/06/21 08:00 04/15/21 12:18 4 UNITS Iron Sucrose 500 mg/Sodium Chloride 275 ml @ 78.571 mls/ hr 1X ONCE 04/13/21 11:00 04/13/21 14:29 DC 04/13/21 11:53 78.571 MLS/HR Lactobacillus Rhamnosus (Culturelle) 1 cap BID 04/06/21 09:00 04/24/21 08:40 1 CAP Lidocaine/ Epinephrine (LIDOCAINE 1%-EPI 1:100,000 Multi-Dose) 18 ml 1X ONCE 04/10/21 14:30 04/10/21 14:31 DC 04/10/21 14:00 18 ML Lidocaine/ Epinephrine (LIDOCAINE 2%-EPI 1:100,000 multi-dose) 13 ml 1X ONCE 04/10/21 14:15 04/10/21 14:23 DC Midazolam HCl (Versed) 1 mg 1X ONCE 04/10/21 14:15 04/10/21 14:16 DC 04/10/21 14:20 1 MG Midodrine (Proamatine) 2.5 mg [id number] 04/20/21 13:00 04/24/21 05:02 2.5 MG Olanzapine (ZyPREXA ZYDIS) 5 mg PRN BID PRN 04/05/21 19:45 Ondansetron HCl (Zofran) 4 mg PRN Q4HRS PRN 04/05/21 19:45 04/19/21 21:22 4 MG Oxybutynin Chloride (Ditropan) 5 mg [id number] 04/11/21 11:00 04/24/21 08:40 5 MG Pantoprazole Sodium (Protonix) 40 mg DAILY07 04/06/21 07:00 04/24/21 05:04 40 MG Polyethylene Glycol (miraLAX PACKET) 17 gm PRN DAILY PRN 04/05/21 22:30 Sodium Chloride 1,000 ml @ 400 mls/hr Q2H30M PRN 04/23/21 08:45 04/23/21 20:44 DC Sodium Chloride (Normal Saline Flush) 10 ml 1X PRN PRN 04/20/21 13:45 04/21/21 13:44 DC Vitamin B Complex/ Vitamin C (Eugenia-Randy) 1 tab DAILY 04/12/21 12:00 04/24/21 08:40 1 TAB Lab Laboratory Tests Test 04/23/21 16:11 04/23/21 21:18 04/24/21 07:22 04/24/21 11:20 Glucose (Fingerstick) 133 mg/dL (70-99) 116 mg/dL (70-99) 101 mg/dL (70-99) 103 mg/dL (70-99) Results All relevant outside records, renal labs, imaging studies, telemetry/EKG's were reviewed. Justicifation of Admission Dx: Justifications for Admission: Justification of Admission Dx: Yes Acute Renal Failure: RF Can't Be Managed Outpt Chronic Renal Failure: Renail Failure MEREDITH CULP MD Apr 24, 2021 11:56
--- NOTE | 2021-04-24 12:13 | PDOC ---
[employer] PROGRESS NOTE Date of Service DOS: DATE: 04/24/21 TIME: 12:12 Chief Complaint Chief Complaint Acute Kidney Injury Hypotension UTI Laceration to head HTN Diabetes type 2 Lymphedema Obesity OA COVID 19 History of Present Illness History of Present Illness 80yo female with PMHx afib, prior DVT/PE, OA, CKD, HTN, DM2 who comes to ED via EMS from her nursing facility [facility] for fall at SNF and abnormal urine and labs. She fell out of bed while her diaper was being changed the night prior to admission, notes she has bruises to left knee, left elbow, left flank scabbed abrasion to left scalp she thinks tore open. She think she had negative imaging prior to transfer to ED. She did not have loss of consciousness. Patient denies neck pain or head pain. Her only complaints are memory difficulties, weakness and debility and gluteal pain Patient does have a Navarro catheter in place and a tunneled single lumen RIJ, she notes since a discharge on 03/06 for debility she had Urology follow up and was admitted to [facility], does not recall most of her stay and does not know why she has a tunneled line in her right chest wall, does not think she is being given meds 04/09: Nephrology and urology consulted. Has chronic uretal stents bilaterally and getting tunneled catheter placed for HD. 04/10: Patient evaluated examined at bedside. Creatinine still quite elevated. Tunnel cath requested for today and HD tomorrow per nephrology. Continue current plan otherwise. When I saw patient she was resting in bed without much complaint. 04/12: Patient evaluated during dialysis. BUN and Creatinine are trending down since starting dialysis. Continue current plan. 04/13: Patient seen and examined at [facility] after her dialysis. Patient is doing well. 04/14: Patient seen at [facility]. She is doing well, awaiting acceptance into nursing facility. Chair time has been scheduled at [facility]. 04/15: Outpatient dialysis has been set-up at [facility]. 04/16: Needs SNF, has outpatient dialysis set up 04/17: Rapid COVID 19 returns positive, plans for dc to SNF and outpatient dialysis 04/18: Hemodialysis. No significant complaints. COVID-19 was positive on repeat testing. She is not currently hypoxic and not feel any symptoms 04/19: Orthostatic positive with therapy today. She just feels weak overall and feels her neck is weak. 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 Needs rehab. 04/20: Still orthostatic positive. She is a little stronger today but still profoundly weak. Still needs rehab. Hold antihypertensives and started midodrine today. 04/21: Still fairly orthostatic and very weak. She needs help getting up in bed and eating today. Started on midodrine. Needs continued dialysis. 04/22: Orthostasis minimally improved. Still feeling very weak. Navarro with no urine output replaced into the urinary bladder with some urine output nearly 100 cc. 04/23 Valuated examined at bedside seen during dialysis. No major complaints today other than ongoing weakness. Looks like she will be able to go to rehab facility once out of Covid window. Otherwise continue current. 04/24 Seen and examined at bedside. No major clinical changes. Accepted by facility on the as she will be out of Covid window then. Continue current and will plan for discharge that day Vitals/I&O Vitals/I&O: Vital Signs Date Time Temp Pulse Resp B/P (MAP) Pulse Ox O2 Delivery O2 Flow Rate FiO2 04/24/21 11:00 97.1 72 18 90/53 (65) 100 Room Air 97.1 04/24/21 08:00 2.0 I & O 04/23/21 04/23/21 04/24/21 15:00 23:00 07:00 Intake Total 150 ml 100 ml 0 ml Output Total 150 ml Balance 150 ml 100 ml -150 ml Physical Exam General: Cooperative, No acute distress Heart: Regular rate Lungs: Clear Abdomen: Normal bowel sounds, No tenderness Extremities: No clubbing Skin: No breakdown Labs Labs: Laboratory Tests Test 04/23/21 16:11 04/23/21 21:18 04/24/21 07:22 04/24/21 11:20 Glucose (Fingerstick) 133 mg/dL (70-99) 116 mg/dL (70-99) 101 mg/dL (70-99) 103 mg/dL (70-99) Assessment and Plan Assessmemt and Plan Problems Medical Problems: (1) Acute renal failure Status: Acute Comment Review of Relevant I have reviewed the following items edis (where applicable) has been applied. Justifications for Admission Other Justification LAURIE SHARMA MD Apr 24, 2021 12:13
[2021-04-24] MEDS: ACETAMINOPHEN 325 MG TABLET. PO PRN (12:35)
[2021-04-24 15:00] VITALS: BP 131/53
[2021-04-24] MEDS: ONDANSETRON PF 4 MG/2 ML VIAL. IVP PRN (15:46)
[2021-04-24 19:51] VITALS: BP 107/58
[2021-04-24] MEDS: ATORVASTATIN CALCIUM 40 MG TABLET. PO SCH (21:40)
[2021-04-24 23:00] VITALS: BP 97/54
[2021-04-25 02:36] VITALS: BP 92/50
[2021-04-25 04:48] LABS: CREATININE 6.4 mg/dL (0.6-1.0); GFR 6.3
[2021-04-25] MEDS: HEPARIN for SUB-Q USE 5,000 UNIT/ML VIAL. SQ SCH ×3 (05:35→20:54)
[2021-04-25 06:15] VITALS: BP 108/54
[2021-04-25] MEDS: PANTOPRAZOLE 40 MG TABLET.DR. PO SCH ×2 (07:00→09:05)
[2021-04-25] MEDS: INSULIN LISPRO 300 UNITS/3 ML VIAL. SQ SCH ×3 (08:00→17:00)
[2021-04-25] MEDS ORDERED: IV NORMAL SALINE 1000ML BAG 1,000 ML IV PRN ×2 (08:45)
[2021-04-25] MEDS ORDERED: DIALYSIS PATIENT. MC PRN (08:45)
[2021-04-25] MEDS ORDERED: ALBUMIN HUMAN 25% 200 ML IV PRN (08:45)
[2021-04-25] MEDS: LACTOBACILLUS RHAMNOSUS GG 1 CAPSULE. PO SCH ×3 (09:00→20:52)
[2021-04-25] MEDS: OXYBUTYNIN CHLORIDE 5 MG TABLET PO SCH ×4 (09:00→20:52)
[2021-04-25] MEDS: FOLIC/VIT B COMP W-C (RENAL) TABLET. PO SCH ×2 (09:00→09:05)
--- NOTE | 2021-04-25 09:00 | PDOC ---
[employer] PROGRESS NOTE Date of Service DOS: DATE: 04/25/21 TIME: 08:59 Chief Complaint Chief Complaint Acute Kidney Injury Hypotension UTI Laceration to head HTN Diabetes type 2 Lymphedema Obesity OA COVID 19 History of Present Illness History of Present Illness 80yo female with PMHx afib, prior DVT/PE, OA, CKD, HTN, DM2 who comes to ED via EMS from her nursing facility [facility] for fall at SNF and abnormal urine and labs. She fell out of bed while her diaper was being changed the night prior to admission, notes she has bruises to left knee, left elbow, left flank scabbed abrasion to left scalp she thinks tore open. She think she had negative imaging prior to transfer to ED. She did not have loss of consciousness. Patient denies neck pain or head pain. Her only complaints are memory difficulties, weakness and debility and gluteal pain Patient does have a Navarro catheter in place and a tunneled single lumen RIJ, she notes since a discharge on 03/06 for debility she had Urology follow up and was admitted to [facility], does not recall most of her stay and does not know why she has a tunneled line in her right chest wall, does not think she is being given meds 04/09: Nephrology and urology consulted. Has chronic uretal stents bilaterally and getting tunneled catheter placed for HD. 04/10: Patient evaluated examined at bedside. Creatinine still quite elevated. Tunnel cath requested for today and HD tomorrow per nephrology. Continue current plan otherwise. When I saw patient she was resting in bed without much complaint. 04/12: Patient evaluated during dialysis. BUN and Creatinine are trending down since starting dialysis. Continue current plan. 04/13: Patient seen and examined at [facility] after her dialysis. Patient is doing well. 04/14: Patient seen at [facility]. She is doing well, awaiting acceptance into nursing facility. Chair time has been scheduled at [facility]. 04/15: Outpatient dialysis has been set-up at [facility]. 04/16: Needs SNF, has outpatient dialysis set up 04/17: Rapid COVID 19 returns positive, plans for dc to SNF and outpatient dialysis 04/18: Hemodialysis. No significant complaints. COVID-19 was positive on repeat testing. She is not currently hypoxic and not feel any symptoms 04/19: Orthostatic positive with therapy today. She just feels weak overall and feels her neck is weak. 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 Needs rehab. 04/20: Still orthostatic positive. She is a little stronger today but still profoundly weak. Still needs rehab. Hold antihypertensives and started midodrine today. 04/21: Still fairly orthostatic and very weak. She needs help getting up in bed and eating today. Started on midodrine. Needs continued dialysis. 04/22: Orthostasis minimally improved. Still feeling very weak. Navarro with no urine output replaced into the urinary bladder with some urine output nearly 100 cc. 04/23 Valuated examined at bedside seen during dialysis. No major complaints today other than ongoing weakness. Looks like she will be able to go to rehab facility once out of Covid window. Otherwise continue current. 04/24 Seen and examined at bedside. No major clinical changes. Accepted by facility on the as she will be out of Covid window then. Continue current and will plan for discharge that day 04/25 Evaluate examined at bedside. Clinically not much change. Still planning for discharge Friday to facility. Vitals/I&O Vitals/I&O: Vital Signs Date Time Temp Pulse Resp B/P (MAP) Pulse Ox O2 Delivery O2 Flow Rate FiO2 04/25/21 06:15 97.9 75 20 108/54 (72) 99 Room Air 97.9 04/24/21 20:10 2.0 I & O 04/24/21 04/24/21 04/25/21 15:00 23:00 07:00 Intake Total 0 ml 50 ml Output Total 100 ml Balance 0 ml -50 ml Physical Exam General: Alert, Cooperative, No acute distress Heart: Regular rate Lungs: Clear Abdomen: Normal bowel sounds, No tenderness Extremities: No clubbing Skin: No breakdown Labs Labs: Laboratory Tests Test 04/24/21 11:20 04/24/21 17:00 04/24/21 20:38 04/25/21 04:30 Glucose (Fingerstick) 103 mg/dL (70-99) 110 mg/dL (70-99) 111 mg/dL (70-99) Sodium Level 134 mmol/L (136-145) Potassium Level 4.0 mmol/L (3.5-5.1) Chloride Level 97 mmol/L (98-107) Carbon Dioxide Level 27 mmol/L (21-32) Anion Gap 10 (6-14) Blood Urea Nitrogen 31 mg/dL (7-20) Creatinine 6.4 mg/dL (0.6-1.0) Estimated GFR (Cockcroft-Gault) 6.3 Glucose Level 92 mg/dL (70-99) Calcium Level 8.0 mg/dL (8.5-10.1) Test 04/25/21 07:57 Glucose (Fingerstick) 78 mg/dL (70-99) Assessment and Plan Assessmemt and Plan Problems Medical Problems: (1) Acute renal failure Status: Acute Comment Review of Relevant I have reviewed the following items edis (where applicable) has been applied. Justifications for Admission Other Justification LAURIE SHARMA MD Apr 25, 2021 09:00
[2021-04-25] MEDS: MIDODRINE 2.5 MG TABLET PO SCH ×3 (09:05→18:35)
--- NOTE | 2021-04-25 09:52 | NUR ---
SS following up with discharge planning. SS reviewed pt chart and discussed with pt RN. Pt is currently on room air. COVID19 positive. PT/OT recommending jail unit. Hemodialysis. Pt accepted at [facility], ; fax [phone], and can admit on 04/27/2021 once ten days post COVID19 positive test. Pt has outpatient hemodialysis set up at [facility], ; fax [phone], Friday, Friday, and Friday. Facility reported that pt is cleared to start services on 04/30/2021. SS will continue to follow for discharge planning.
--- NOTE | 2021-04-25 11:57 | PDOC ---
DATE OF SERVICE DATE: 04/25/21 TIME: 11:56 SUBJECTIVE ROS No complaints during dialysis Denies SOB, No N/V OBJECTIVE Vital Signs Vital Signs Date Time Temp Pulse Resp B/P (MAP) Pulse Ox O2 Delivery O2 Flow Rate FiO2 04/25/21 09:05 75 108/54 04/25/21 08:00 Room Air 04/25/21 06:15 97.9 20 99 97.9 04/24/21 20:10 2.0 I & 0 Intake and Output 04/25/21 07:00 Intake Total 50 ml Output Total 100 ml Balance -50 ml Intake Oral 50 ml Output Urine Total 100 ml PHYSICAL EXAM Physical Exam General Appearance: no apparent distress,resting comfortably Skin: warm Respiratory: bilateral CTA Heart: S1S2 Abdomen: soft, bowel sounds present Genitourinary: figueredo + Extremities: pulses present Neurology: alert DIAGNOSIS/ASSESSMENT Assessment & Plan New Onset ESRD- on HD MWF , Seen during dialysis. Toerating well. Continue as ordered. Mustapha MANDUJANO Access Tunneled HDC . OP chair MWF @ [facility] 3 rd shift CoVid Rapid- positive on 04/17 UTI POA Hydronephrosis - S/P Bilateral Ureteral stents . Defer fu with Urology HX of PAfib Anemia - On BEATRICE ,Recd IV Venofer HTN- currently Low normal . DM II Per PT- Pt was orthostatic and unable to walk DC per Primary, awaiting placement COMMENT/RELEVANT DATA Meds Current Medications Medications (Trade) Dose Ordered Sig/Angy Start Time Stop Time Status Last Admin Dose Admin Acetaminophen (Tylenol) 650 mg PRN Q6HRS PRN 04/05/21 19:45 04/24/21 12:35 650 MG Albumin Human 200 ml @ 200 mls/hr 1X PRN PRN 04/25/21 08:45 04/25/21 14:44 Amlodipine Besylate (Norvasc) 5 mg DAILY 04/06/21 09:00 04/20/21 12:31 DC 04/19/21 10:28 5 MG Atorvastatin Calcium (Lipitor) 40 mg QHS 04/05/21 23:00 04/24/21 21:40 40 MG Cefazolin Sodium/ Dextrose 50 ml @ 100 mls/hr 1X ONCE 04/10/21 14:15 04/10/21 14:44 DC 04/10/21 14:21 100 MLS/HR Ceftriaxone Sodium (Rocephin) 1 gm DAILY 04/06/21 09:00 04/09/21 13:37 DC 04/09/21 12:00 1 GM Dextrose (Dextrose 50%-Water Syringe) 12.5 gm PRN Q15MIN PRN 04/05/21 22:30 Epoetin Romulo-epbx (RETACRIT for ESRD PTS) 10,000 unit MoWeFr@2100 04/13/21 21:00 04/23/21 19:26 10,000 UNIT Fentanyl Citrate (Fentanyl 2ml Vial) 50 mcg 1X ONCE 04/10/21 14:15 04/10/21 14:16 DC 04/10/21 14:20 50 MCG Ferrous Sulfate (Feosol) 325 mg BIDWMEALS 04/06/21 08:00 04/13/21 10:48 DC 04/12/21 17:41 325 MG Fluconazole (Diflucan) 50 mg DAILY 04/08/21 18:00 04/14/21 17:59 DC 04/14/21 09:42 50 MG Heparin Sodium (Porcine) (Heparin Sodium) 5,000 unit Q8HRS 04/15/21 22:00 04/25/21 05:35 5,000 UNIT Info (PHARMACY MONITORING -- do not chart) 1 each PRN DAILY PRN 04/25/21 08:45 Insulin Glargine (Lantus Syringe) 8 unit QHS 04/05/21 23:00 04/23/21 15:28 DC 04/22/21 19:56 8 UNIT Insulin Human Lispro (HumaLOG) 0-7 UNITS TIDWMEALS 04/06/21 08:00 04/15/21 12:18 4 UNITS Iron Sucrose 500 mg/Sodium Chloride 275 ml @ 78.571 mls/ hr 1X ONCE 04/13/21 11:00 04/13/21 14:29 DC 04/13/21 11:53 78.571 MLS/HR Lactobacillus Rhamnosus (Culturelle) 1 cap BID 04/06/21 09:00 04/24/21 21:41 1 CAP Lidocaine/ Epinephrine (LIDOCAINE 1%-EPI 1:100,000 Multi-Dose) 18 ml 1X ONCE 04/10/21 14:30 04/10/21 14:31 DC 04/10/21 14:00 18 ML Lidocaine/ Epinephrine (LIDOCAINE 2%-EPI 1:100,000 multi-dose) 13 ml 1X ONCE 04/10/21 14:15 04/10/21 14:23 DC Midazolam HCl (Versed) 1 mg 1X ONCE 04/10/21 14:15 04/10/21 14:16 DC 04/10/21 14:20 1 MG Midodrine (Proamatine) 5 mg [id number] 04/25/21 13:00 Olanzapine (ZyPREXA ZYDIS) 5 mg PRN BID PRN 04/05/21 19:45 Ondansetron HCl (Zofran) 4 mg PRN Q4HRS PRN 04/05/21 19:45 04/24/21 15:46 4 MG Oxybutynin Chloride (Ditropan) 5 mg [id number] 04/11/21 11:00 04/24/21 21:41 5 MG Pantoprazole Sodium (Protonix) 40 mg DAILY07 04/06/21 07:00 04/24/21 05:04 40 MG Polyethylene Glycol (miraLAX PACKET) 17 gm PRN DAILY PRN 04/05/21 22:30 Sodium Chloride 1,000 ml @ 400 mls/hr Q2H30M PRN 04/25/21 08:45 04/25/21 20:44 Sodium Chloride (Normal Saline Flush) 10 ml 1X PRN PRN 04/20/21 13:45 04/21/21 13:44 DC Vitamin B Complex/ Vitamin C (Eugenia-Randy) 1 tab DAILY 04/12/21 12:00 04/24/21 08:40 1 TAB Lab Laboratory Tests Test 04/24/21 17:00 04/24/21 20:38 04/25/21 04:30 04/25/21 07:57 Glucose (Fingerstick) 110 mg/dL (70-99) 111 mg/dL (70-99) 78 mg/dL (70-99) Sodium Level 134 mmol/L (136-145) Potassium Level 4.0 mmol/L (3.5-5.1) Chloride Level 97 mmol/L (98-107) Carbon Dioxide Level 27 mmol/L (21-32) Anion Gap 10 (6-14) Blood Urea Nitrogen 31 mg/dL (7-20) Creatinine 6.4 mg/dL (0.6-1.0) Estimated GFR (Cockcroft-Gault) 6.3 Glucose Level 92 mg/dL (70-99) Calcium Level 8.0 mg/dL (8.5-10.1) Results All relevant outside records, renal labs, imaging studies, telemetry/EKG's were reviewed. Justicifation of Admission Dx: Justifications for Admission: Justification of Admission Dx: Yes Acute Renal Failure: RF Can't Be Managed Outpt Chronic Renal Failure: Renail Failure MEREDITH CULP MD Apr 25, 2021 11:57
[2021-04-25] MEDS: ACETAMINOPHEN 325 MG TABLET. PO PRN ×2 (12:32→21:03)
[2021-04-25 15:00] VITALS: BP 96/54
[2021-04-25 19:11] VITALS: BP 98/56
[2021-04-25] MEDS: ATORVASTATIN CALCIUM 40 MG TABLET. PO SCH (20:52)
[2021-04-25] MEDS: EPOETIN ALFA-EPBX for ESRD 20,000 UNIT/ML VIAL. SQ SCH (20:54)
[2021-04-25 22:35] VITALS: BP 127/60
[2021-04-26 02:00] VITALS: BP 104/55
[2021-04-26] MEDS: HEPARIN for SUB-Q USE 5,000 UNIT/ML VIAL. SQ SCH ×3 (06:26→21:52)
[2021-04-26 07:23] VITALS: BP 90/51
[2021-04-26] MEDS: INSULIN LISPRO 300 UNITS/3 ML VIAL. SQ SCH ×3 (08:00→17:00)
[2021-04-26] MEDS: LACTOBACILLUS RHAMNOSUS GG 1 CAPSULE. PO SCH ×2 (09:15→21:51)
[2021-04-26] MEDS: OXYBUTYNIN CHLORIDE 5 MG TABLET PO SCH ×3 (09:15→21:54)
[2021-04-26] MEDS: FOLIC/VIT B COMP W-C (RENAL) TABLET. PO SCH (09:15)
[2021-04-26] MEDS: PANTOPRAZOLE 40 MG TABLET.DR. PO SCH (09:15)
[2021-04-26] MEDS: MIDODRINE 2.5 MG TABLET PO SCH ×3 (09:15→16:26)
--- NOTE | 2021-04-26 09:52 | PDOC ---
DATE OF SERVICE DATE: 04/26/21 TIME: 09:51 SUBJECTIVE ROS No complaints Denies SOB, No N/V OBJECTIVE Vital Signs Vital Signs Date Time Temp Pulse Resp B/P (MAP) Pulse Ox O2 Delivery O2 Flow Rate FiO2 04/26/21 09:15 79 90/51 04/26/21 07:23 97.9 18 98 Room Air 97.9 I & 0 Intake and Output 04/26/21 07:00 Intake Total 510 ml Balance 510 ml Intake Oral 510 ml PHYSICAL EXAM Physical Exam General Appearance: no apparent distress,resting comfortably Skin: warm Respiratory: bilateral CTA Heart: S1S2 Abdomen: soft, bowel sounds present Genitourinary: figueredo + Extremities: pulses present Neurology: alert DIAGNOSIS/ASSESSMENT Assessment & Plan New Onset ESRD- on HD MWF , No indication for HD today. Access Tunneled HDC . OP chair MWF @ [facility] 3 rd shift CoVid Rapid- positive on 04/17 UTI POA Hydronephrosis - S/P Bilateral Ureteral stents . Defer fu with Urology HX of PAfib Anemia - On BEATRICE ,Recd IV Venofer HTN- currently Low normal . DM II Per PT- Pt was orthostatic and unable to walk DC per Primary, awaiting placement COMMENT/RELEVANT DATA Meds Current Medications Medications (Trade) Dose Ordered Sig/Angy Start Time Stop Time Status Last Admin Dose Admin Acetaminophen (Tylenol) 650 mg PRN Q6HRS PRN 04/05/21 19:45 04/25/21 21:03 650 MG Albumin Human 200 ml @ 200 mls/hr 1X PRN PRN 04/25/21 08:45 04/25/21 14:44 DC Amlodipine Besylate (Norvasc) 5 mg DAILY 04/06/21 09:00 04/20/21 12:31 DC 04/19/21 10:28 5 MG Atorvastatin Calcium (Lipitor) 40 mg QHS 04/05/21 23:00 04/25/21 20:52 40 MG Cefazolin Sodium/ Dextrose 50 ml @ 100 mls/hr 1X ONCE 04/10/21 14:15 04/10/21 14:44 DC 04/10/21 14:21 100 MLS/HR Ceftriaxone Sodium (Rocephin) 1 gm DAILY 04/06/21 09:00 04/09/21 13:37 DC 04/09/21 12:00 1 GM Dextrose (Dextrose 50%-Water Syringe) 12.5 gm PRN Q15MIN PRN 04/05/21 22:30 Epoetin Romulo-epbx (RETACRIT for ESRD PTS) 10,000 unit MoWeFr@2100 04/13/21 21:00 04/25/21 20:54 10,000 UNIT Fentanyl Citrate (Fentanyl 2ml Vial) 50 mcg 1X ONCE 04/10/21 14:15 04/10/21 14:16 DC 04/10/21 14:20 50 MCG Ferrous Sulfate (Feosol) 325 mg BIDWMEALS 04/06/21 08:00 04/13/21 10:48 DC 04/12/21 17:41 325 MG Fluconazole (Diflucan) 50 mg DAILY 04/08/21 18:00 04/14/21 17:59 DC 04/14/21 09:42 50 MG Heparin Sodium (Porcine) (Heparin Sodium) 5,000 unit Q8HRS 04/15/21 22:00 04/26/21 06:26 5,000 UNIT Info (PHARMACY MONITORING -- do not chart) 1 each PRN DAILY PRN 04/25/21 08:45 Insulin Glargine (Lantus Syringe) 8 unit QHS 04/05/21 23:00 04/23/21 15:28 DC 04/22/21 19:56 8 UNIT Insulin Human Lispro (HumaLOG) 0-7 UNITS TIDWMEALS 04/06/21 08:00 04/15/21 12:18 4 UNITS Iron Sucrose 500 mg/Sodium Chloride 275 ml @ 78.571 mls/ hr 1X ONCE 04/13/21 11:00 04/13/21 14:29 DC 04/13/21 11:53 78.571 MLS/HR Lactobacillus Rhamnosus (Culturelle) 1 cap BID 04/06/21 09:00 04/26/21 09:15 1 CAP Lidocaine/ Epinephrine (LIDOCAINE 1%-EPI 1:100,000 Multi-Dose) 18 ml 1X ONCE 04/10/21 14:30 04/10/21 14:31 DC 04/10/21 14:00 18 ML Lidocaine/ Epinephrine (LIDOCAINE 2%-EPI 1:100,000 multi-dose) 13 ml 1X ONCE 04/10/21 14:15 04/10/21 14:23 DC Midazolam HCl (Versed) 1 mg 1X ONCE 04/10/21 14:15 04/10/21 14:16 DC 04/10/21 14:20 1 MG Midodrine (Proamatine) 5 mg [id number] 04/25/21 13:00 04/26/21 09:15 5 MG Olanzapine (ZyPREXA ZYDIS) 5 mg PRN BID PRN 04/05/21 19:45 Ondansetron HCl (Zofran) 4 mg PRN Q4HRS PRN 04/05/21 19:45 04/24/21 15:46 4 MG Oxybutynin Chloride (Ditropan) 5 mg [id number] 04/11/21 11:00 04/26/21 09:15 5 MG Pantoprazole Sodium (Protonix) 40 mg DAILY07 04/06/21 07:00 04/26/21 09:15 40 MG Polyethylene Glycol (miraLAX PACKET) 17 gm PRN DAILY PRN 04/05/21 22:30 Sodium Chloride 1,000 ml @ 400 mls/hr Q2H30M PRN 04/25/21 08:45 04/25/21 20:44 DC Sodium Chloride (Normal Saline Flush) 10 ml 1X PRN PRN 04/20/21 13:45 04/21/21 13:44 DC Vitamin B Complex/ Vitamin C (Eugenia-Randy) 1 tab DAILY 04/12/21 12:00 04/26/21 09:15 1 TAB Lab Laboratory Tests Test 04/25/21 20:34 04/26/21 07:26 Glucose (Fingerstick) 153 mg/dL (70-99) 104 mg/dL (70-99) Results All relevant outside records, renal labs, imaging studies, telemetry/EKG's were reviewed. Justicifation of Admission Dx: Justifications for Admission: Justification of Admission Dx: Yes Acute Renal Failure: RF Can't Be Managed Outpt Chronic Renal Failure: Renail Failure MEREDITH CULP MD Apr 26, 2021 09:52
[2021-04-26 10:35] VITALS: BP 90/54
--- NOTE | 2021-04-26 12:00 | PDOC ---
[employer] PROGRESS NOTE Date of Service DOS: DATE: 04/26/21 TIME: 11:58 Chief Complaint Chief Complaint Acute Kidney Injury Hypotension UTI Laceration to head HTN Diabetes type 2 Lymphedema Obesity OA COVID 19 History of Present Illness History of Present Illness 80yo female with PMHx afib, prior DVT/PE, OA, CKD, HTN, DM2 who comes to ED via EMS from her nursing facility [facility] for fall at SNF and abnormal urine and labs. She fell out of bed while her diaper was being changed the night prior to admission, notes she has bruises to left knee, left elbow, left flank scabbed abrasion to left scalp she thinks tore open. She think she had negative imaging prior to transfer to ED. She did not have loss of consciousness. Patient denies neck pain or head pain. Her only complaints are memory difficulties, weakness and debility and gluteal pain Patient does have a Navarro catheter in place and a tunneled single lumen RIJ, she notes since a discharge on 03/06 for debility she had Urology follow up and was admitted to [facility], does not recall most of her stay and does not know why she has a tunneled line in her right chest wall, does not think she is being given meds 04/09: Nephrology and urology consulted. Has chronic uretal stents bilaterally and getting tunneled catheter placed for HD. 04/10: Patient evaluated examined at bedside. Creatinine still quite elevated. Tunnel cath requested for today and HD tomorrow per nephrology. Continue current plan otherwise. When I saw patient she was resting in bed without much complaint. 04/12: Patient evaluated during dialysis. BUN and Creatinine are trending down since starting dialysis. Continue current plan. 04/13: Patient seen and examined at [facility] after her dialysis. Patient is doing well. 04/14: Patient seen at [facility]. She is doing well, awaiting acceptance into nursing facility. Chair time has been scheduled at [facility]. 04/15: Outpatient dialysis has been set-up at [facility]. 04/16: Needs SNF, has outpatient dialysis set up 04/17: Rapid COVID 19 returns positive, plans for dc to SNF and outpatient dialysis 04/18: Hemodialysis. No significant complaints. COVID-19 was positive on repeat testing. She is not currently hypoxic and not feel any symptoms 04/19: Orthostatic positive with therapy today. She just feels weak overall and feels her neck is weak. 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 04/20: Still orthostatic positive. She is a little stronger today but still profoundly weak. Still needs rehab. Hold antihypertensives and started midodrine today. 04/21: Still fairly orthostatic and very weak. She needs help getting up in bed and eating today. Started on midodrine. Needs continued dialysis. 04/22: Orthostasis minimally improved. Still feeling very weak. Navarro with no urine output replaced into the urinary bladder with some urine output nearly 100 cc. 04/23 Valuated examined at bedside seen during dialysis. No major complaints today other than ongoing weakness. Looks like she will be able to go to rehab facility once out of Covid window. Otherwise continue current. 04/24 Seen and examined at bedside. No major clinical changes. Accepted by facility on the as she will be out of Covid window then. Continue current and will plan for discharge that day 04/25 Evaluate examined at bedside. Clinically not much change. Still planning for discharge Friday to facility. 04/26 Evaluate examined at bedside. Still having some trouble with orthostasis when working with PT. Increase midodrine yesterday we will see how today goes. Still hoping for discharge tomorrow. But we will see how PT session goes today Vitals/I&O Vitals/I&O: Vital Signs Date Time Temp Pulse Resp B/P (MAP) Pulse Ox O2 Delivery O2 Flow Rate FiO2 04/26/21 10:35 97.6 68 18 90/54 (66) 97 Room Air 97.6 I & O 04/25/21 04/25/21 04/26/21 14:59 22:59 06:59 Intake Total 0 ml 360 ml 150 ml Balance 0 ml 360 ml 150 ml Physical Exam General: Alert, Cooperative, No acute distress Heart: Regular rate Lungs: Clear Abdomen: Normal bowel sounds, No tenderness Extremities: No clubbing Skin: No breakdown Labs Labs: Laboratory Tests Test 04/25/21 20:34 04/26/21 07:26 04/26/21 11:29 Glucose (Fingerstick) 153 mg/dL (70-99) 104 mg/dL (70-99) 124 mg/dL (70-99) Assessment and Plan Assessmemt and Plan Problems Medical Problems: (1) Acute renal failure Status: Acute Comment Review of Relevant I have reviewed the following items edis (where applicable) has been applied. Medications: Current Medications Medications (Trade) Dose Ordered Sig/Angy Route PRN Reason Start Time Stop Time Status Last Admin Dose Admin Midodrine (Proamatine) 5 mg [id number] PO 04/25/21 13:00 04/26/21 09:15 Justifications for Admission Other Justification LAURIE SHARMA MD Apr 26, 2021 12:00
--- NOTE | 2021-04-26 13:57 | NUR ---
SS following up with discharge planning. SS reviewed pt chart and discussed with pt RN. Pt is currently on room air. COVID19 positive. PT/OT recommending care home unit. Hemodialysis. Pt accepted at [facility], ; fax [phone], and can admit on 04/27/2021 once ten days post COVID19 positive test. Pt has outpatient hemodialysis set up at [facility], ; fax [phone], Friday, Friday, and Friday. Facility reported that pt is cleared to start services on 04/30/2021. Clinical updates phoned and faxed to [facility]. SS will continue to follow for discharge planning.
[2021-04-26 14:02] VITALS: BP 93/60
[2021-04-26 19:00] VITALS: BP 121/59
[2021-04-26] MEDS: ACETAMINOPHEN 325 MG TABLET. PO PRN (21:52)
[2021-04-26] MEDS: ATORVASTATIN CALCIUM 40 MG TABLET. PO SCH (21:54)
[2021-04-26 22:29] VITALS: BP 110/64
[2021-04-27 02:34] VITALS: BP 122/62
[2021-04-27 05:41] LABS: CALCIUM 8.2 mg/dL (8.5-10.1); CREATININE 5.7 mg/dL (0.6-1.0); GFR 7.2; POTASSIUM 3.7 mmol/L (3.5-5.1)
[2021-04-27] MEDS: MIDODRINE 2.5 MG TABLET PO SCH ×2 (06:16→11:46)
[2021-04-27] MEDS: HEPARIN for SUB-Q USE 5,000 UNIT/ML VIAL. SQ SCH ×2 (06:18→11:46)
[2021-04-27 07:00] VITALS: BP 95/64
[2021-04-27] MEDS: INSULIN LISPRO 300 UNITS/3 ML VIAL. SQ SCH ×2 (07:02→11:46)
[2021-04-27] MEDS: FOLIC/VIT B COMP W-C (RENAL) TABLET. PO SCH (08:34)
[2021-04-27] MEDS: OXYBUTYNIN CHLORIDE 5 MG TABLET PO SCH ×2 (08:34→11:46)
[2021-04-27] MEDS: PANTOPRAZOLE 40 MG TABLET.DR. PO SCH (08:34)
[2021-04-27] MEDS: LACTOBACILLUS RHAMNOSUS GG 1 CAPSULE. PO SCH (08:34)
--- NOTE | 2021-04-27 10:06 | SNU/HH DC ---
DISCHARGE ORDERS DISCHARGE INFORMATION: DISCHARGE DATE: Apr 27, 2021 FINAL DIAGNOSIS Problems Medical Problems: (1) Acute renal failure Status: Acute CONDITION ON DISCHARGE: Stable CODE STATUS: Code Status: Full CUSTODIAL: SNF STAY <30 DAYS: Yes POST DISCHARGE ORDERS: ACTIVITY ORDERS: Activity as tolerated WEIGHT BEARING STATUS: As tolerated DIET AFTER DISCHARGE: Cardiac WOUND/INCISION CARE: Ice to area for comfort, No wound care needed CHECKS AFTER DISCHARGE: CHECKS AFTER DISCHARGE: Check blood press - daily, Check blood sugar, ac/hs, Check your Temp as needed TREATMENT/EQUIPMENT ORDERS: ADAPTIVE EQUIPMENT NEEDED: Bath Bench, Raised toilet seat w/arms, Walker Physical Therapy For: Evalulation/Treatment Occupational Therapy For: Evaluation/Treatment DISCHARGE MEDICATIONS: Home Meds Active Scripts Midodrine Hcl (MIDODRINE HCL) 2.5 Mg Tablet, 5 MG PO [id number] for hypotension for 30 Days, #90 TAB Prov:LAURIE SHARMA MD 04/27/21 Insulin Aspart (NOVOLOG) 100 Unit/1 Ml Cartridge, 5 UNIT SQ TIDAC for dm for 30 Days, #1 EACH Prov:NARCISO SHIELDS K III DO 04/17/21 Insulin Glargine,Hum.rec.anlog (LANTUS) 100 Unit/1 Ml Vial, 8 UNIT SQ QHS for . for 30 Days, #1 EACH Prov:NARCISO SHIELDS K III DO 04/17/21 Amlodipine Besylate (AMLODIPINE BESYLATE) 5 Mg Tablet, 5 MG PO DAILY for htn for 60 Days, #60 TAB Prov:LAURIE SHARMA MD 03/06/21 Linezolid (ZYVOX) 600 Mg Tablet, 600 MG PO BID for infection for 4 Days, #8 TAB Prov:LAURIE SHARMA MD 03/06/21 Amoxicillin/Potassium Clav (AMOX TR-K CLV 500-125 MG TAB) 1 Each Tablet, 1 TAB PO BID for infection for 4 Days, #8 TAB Prov:LAURIE SHARMA MD 03/06/21 Polyethylene Glycol 3350 (POLYETHYLENE GLYCOL 3350) 17 Gm Powd.pack, 17 GM PO DAILY PRN for CONSTIPATION for 30 Days, #30 PKT 1 Refill Prov:TIAN NYE MD 12/26/20 Aspirin (ASPIRIN) 81 Mg Tab.chew, 1 TAB PO DAILY for A-fib prophylaxis, #30 TAB 3 Refills Prov:TIAN NYE MD 12/26/20 Nystatin (NYSTOP) 60 Gm Powder, 1 VU TP QID for yeast infection for 15 Days, #1 MISC Prov:JASON TILLEY MD 10/21/19 Lactobacillus Rhamnosus Gg (CULTURELLE) 1 Each Cap.sprink, 1 CAP PO BID for probiotic for 30 Days, #60 CAP Prov:JASON TILLEY MD 10/21/19 Ferrous Sulfate (FEOSOL) 325 Mg Tablet, 325 MG PO BIDWMEALS for iron deficiency anemia for 30 Days, #60 TAB Prov:JASON TILLEY MD 10/21/19 Acetaminophen (TYLENOL) 325 Mg Tablet, 1-2 TAB PO QID PRN for PAIN, #60 TAB Prov:LILI SCHAEFER MD 09/09/19 Reported Medications Furosemide (FUROSEMIDE) 40 Mg Tablet, 1 TAB PO DAILY for edema, #30 TAB 5 Refills 10/14/19 Ergocalciferol (Vitamin D2) (VITAMIN D2) 50,000 Unit Capsule, 1 CAP PO WEEKLY, #4 CAP 5 Refills 06/21/16 Pantoprazole Sodium (PANTOPRAZOLE SODIUM ) 40 Mg Tablet.dr, 1 TAB PO DAILY, #30 TAB 3 Refills 04/01/16 Atorvastatin Calcium (ATORVASTATIN CALCIUM) 40 Mg Tablet, 1 TAB PO QHS, #90 TAB 3 Refills 04/01/16 LAURIE SHARMA MD Apr 27, 2021 10:06
[2021-04-27] MEDS ORDERED: MIDO2.5T PO (10:08)
[2021-04-27 10:29] VITALS: BP 112/60
--- NOTE | 2021-04-27 10:40 | NUR ---
SS following up with discharge planning. SS reviewed pt chart and discussed with pt RN. Pt is currently on room air. COVID19 positive. PT/OT recommending usp unit. Hemodialysis. Pt accepted at [facility], ; fax [phone]. Pt has outpatient hemodialysis set up at [facility], ; fax [phone], Friday, Friday, and Friday. Facility reported that pt is cleared to start services on 04/30/2021. Discharge orders received and phoned and faxed to [facility]. Pt will discharge today after dialysis and go to [facility] between 1530 and 1600. Pt, pt's RN, and pt's family notified.
[2021-04-27] MEDS ORDERED: DIALYSIS PATIENT. MC PRN ×2 (10:45)
[2021-04-27] MEDS ORDERED: ALBUMIN HUMAN 25% 200 ML IV PRN (10:45)
[2021-04-27] MEDS ORDERED: IV NORMAL SALINE 1000ML BAG 1,000 ML IV PRN ×2 (10:45)
--- NOTE | 2021-04-27 10:51 | PDOC ---
DATE OF SERVICE DATE: 04/27/21 TIME: 10:47 SUBJECTIVE ROS No complaints Denies SOB, No N/V OBJECTIVE Vital Signs Vital Signs Date Time Temp Pulse Resp B/P (MAP) Pulse Ox O2 Delivery O2 Flow Rate FiO2 04/27/21 10:29 97.0 84 18 112/60 (77) 100 Room Air 97.0 04/27/21 08:00 2.0 I & 0 Intake and Output 04/27/21 07:00 Intake Total 690 ml Output Total 300 ml Balance 390 ml Intake Oral 690 ml Output Urine Total 300 ml # Bowel Movements 1 PHYSICAL EXAM Physical Exam General Appearance: no apparent distress,resting comfortably Skin: warm Respiratory: bilateral CTA Heart: S1S2 Abdomen: soft, bowel sounds present Genitourinary: figueredo + Extremities: pulses present Neurology: alert DIAGNOSIS/ASSESSMENT Assessment & Plan New Onset ESRD- on HD MWF ,Dialysis today , discussed treatment plan with [facility] . OP chair MWF @ [facility] 3 rd shift CoVid Rapid- positive on 04/17 UTI POA Hydronephrosis - S/P Bilateral Ureteral stents . Defer fu with Urology HX of PAfib Anemia - On BEATRICE ,Recd IV Venofer History of HTN- has been low and Orthostatic . Continue Midodrine. Card Consult if deemed necessary per primary . Increase dose of Midodrine as indicated DM II Per PT- Pt was orthostatic and unable to walk DC per Primary, awaiting placement COMMENT/RELEVANT DATA Meds Current Medications Medications (Trade) Dose Ordered Sig/Angy Start Time Stop Time Status Last Admin Dose Admin Acetaminophen (Tylenol) 650 mg PRN Q6HRS PRN 04/05/21 19:45 04/26/21 21:52 650 MG Albumin Human 200 ml @ 200 mls/hr 1X PRN PRN 04/27/21 10:45 04/27/21 16:44 UNV Amlodipine Besylate (Norvasc) 5 mg DAILY 04/06/21 09:00 04/20/21 12:31 DC 04/19/21 10:28 5 MG Atorvastatin Calcium (Lipitor) 40 mg QHS 04/05/21 23:00 04/26/21 21:54 40 MG Cefazolin Sodium/ Dextrose 50 ml @ 100 mls/hr 1X ONCE 04/10/21 14:15 04/10/21 14:44 DC 04/10/21 14:21 100 MLS/HR Ceftriaxone Sodium (Rocephin) 1 gm DAILY 04/06/21 09:00 04/09/21 13:37 DC 04/09/21 12:00 1 GM Dextrose (Dextrose 50%-Water Syringe) 12.5 gm PRN Q15MIN PRN 04/05/21 22:30 Epoetin Romulo-epbx (RETACRIT for ESRD PTS) 10,000 unit MoWeFr@2100 04/13/21 21:00 04/25/21 20:54 10,000 UNIT Fentanyl Citrate (Fentanyl 2ml Vial) 50 mcg 1X ONCE 04/10/21 14:15 04/10/21 14:16 DC 04/10/21 14:20 50 MCG Ferrous Sulfate (Feosol) 325 mg BIDWMEALS 04/06/21 08:00 04/13/21 10:48 DC 04/12/21 17:41 325 MG Fluconazole (Diflucan) 50 mg DAILY 04/08/21 18:00 04/14/21 17:59 DC 04/14/21 09:42 50 MG Heparin Sodium (Porcine) (Heparin Sodium) 5,000 unit Q8HRS 04/15/21 22:00 04/27/21 06:18 5,000 UNIT Info (PHARMACY MONITORING -- do not chart) 1 each PRN DAILY PRN 04/27/21 10:45 UNV Insulin Glargine (Lantus Syringe) 8 unit QHS 04/05/21 23:00 04/23/21 15:28 DC 04/22/21 19:56 8 UNIT Insulin Human Lispro (HumaLOG) 0-7 UNITS TIDWMEALS 04/06/21 08:00 04/15/21 12:18 4 UNITS Iron Sucrose 500 mg/Sodium Chloride 275 ml @ 78.571 mls/ hr 1X ONCE 04/13/21 11:00 04/13/21 14:29 DC 04/13/21 11:53 78.571 MLS/HR Lactobacillus Rhamnosus (Culturelle) 1 cap BID 04/06/21 09:00 04/27/21 08:34 1 CAP Lidocaine/ Epinephrine (LIDOCAINE 1%-EPI 1:100,000 Multi-Dose) 18 ml 1X ONCE 04/10/21 14:30 04/10/21 14:31 DC 04/10/21 14:00 18 ML Lidocaine/ Epinephrine (LIDOCAINE 2%-EPI 1:100,000 multi-dose) 13 ml 1X ONCE 04/10/21 14:15 04/10/21 14:23 DC Midazolam HCl (Versed) 1 mg 1X ONCE 04/10/21 14:15 04/10/21 14:16 DC 04/10/21 14:20 1 MG Midodrine (Proamatine) 5 mg [id number] 04/25/21 13:00 04/26/21 16:26 5 MG Olanzapine (ZyPREXA ZYDIS) 5 mg PRN BID PRN 04/05/21 19:45 Ondansetron HCl (Zofran) 4 mg PRN Q4HRS PRN 04/05/21 19:45 04/24/21 15:46 4 MG Oxybutynin Chloride (Ditropan) 5 mg [id number] 04/11/21 11:00 04/27/21 08:34 5 MG Pantoprazole Sodium (Protonix) 40 mg DAILY07 04/06/21 07:00 04/27/21 08:34 40 MG Polyethylene Glycol (miraLAX PACKET) 17 gm PRN DAILY PRN 04/05/21 22:30 Sodium Chloride 1,000 ml @ 400 mls/hr Q2H30M PRN 04/27/21 10:45 04/27/21 22:44 UNV Sodium Chloride (Normal Saline Flush) 10 ml 1X PRN PRN 04/20/21 13:45 04/21/21 13:44 DC Vitamin B Complex/ Vitamin C (Eugenia-Randy) 1 tab DAILY 04/12/21 12:00 04/27/21 08:34 1 TAB Lab Laboratory Tests Test 04/26/21 11:29 04/26/21 16:18 04/26/21 20:25 04/27/21 05:15 Glucose (Fingerstick) 124 mg/dL (70-99) 139 mg/dL (70-99) 164 mg/dL (70-99) Sodium Level 138 mmol/L (136-145) Potassium Level 3.7 mmol/L (3.5-5.1) Chloride Level 100 mmol/L (98-107) Carbon Dioxide Level 27 mmol/L (21-32) Anion Gap 11 (6-14) Blood Urea Nitrogen 29 mg/dL (7-20) Creatinine 5.7 mg/dL (0.6-1.0) Estimated GFR (Cockcroft-Gault) 7.2 Glucose Level 116 mg/dL (70-99) Calcium Level 8.2 mg/dL (8.5-10.1) Test 04/27/21 07:36 04/27/21 10:42 Glucose (Fingerstick) 100 mg/dL (70-99) 172 mg/dL (70-99) Results All relevant outside records, renal labs, imaging studies, telemetry/EKG's were reviewed. Justicifation of Admission Dx: Justifications for Admission: Justification of Admission Dx: Yes Acute Renal Failure: RF Can't Be Managed Outpt Chronic Renal Failure: Renail Failure MEREDITH CULP MD Apr 27, 2021 10:51
[2021-04-27] MEDS ORDERED: diphenhydrAMINE 50 MG/ML VIAL IVP ONE (11:45)
--- NOTE | 2021-04-27 13:08 | NUR ---
Report called to Joshua at [facility]
--- NOTE | 2021-04-27 13:42 | PDOC3 ---
[facility]-Discharge Summary Date of Admission: Date of Admission: Apr 05, 2021 Date of Discharge: Date of Discharge: Apr 27, 2021 Hospital Course: Hospital Course: Chief Complaint Acute Kidney Injury Hypotension UTI Laceration to head HTN Diabetes type 2 Lymphedema Obesity OA COVID 19 History of Present Illness History of Present Illness 80yo female with PMHx afib, prior DVT/PE, OA, CKD, HTN, DM2 who comes to ED via EMS from her nursing facility [facility] for fall at SNF and abnormal urine and labs. She fell out of bed while her diaper was being changed the night prior to admission, notes she has bruises to left knee, left elbow, left flank scabbed abrasion to left scalp she thinks tore open. She think she had negative imaging prior to transfer to ED. She did not have loss of consciousness. Patient denies neck pain or head pain. Her only complaints are memory difficulties, weakness and debility and gluteal pain Patient does have a Navarro catheter in place and a tunneled single lumen RIJ, she notes since a discharge on 03/06 for debility she had Urology follow up and was admitted to [facility], does not recall most of her stay and does not know why she has a tunneled line in her right chest wall, does not think she is being given meds 04/09: Nephrology and urology consulted. Has chronic uretal stents bilaterally and getting tunneled catheter placed for HD. 04/10: Patient evaluated examined at bedside. Creatinine still quite elevated. Tunnel cath requested for today and HD tomorrow per nephrology. Continue current plan otherwise. When I saw patient she was resting in bed without much complaint. 04/12: Patient evaluated during dialysis. BUN and Creatinine are trending down since starting dialysis. Continue current plan. 04/13: Patient seen and examined at [facility] after her dialysis. Patient is doing well. 04/14: Patient seen at [facility]. She is doing well, awaiting acceptance into nursing facility. Chair time has been scheduled at [facility]. 04/15: Outpatient dialysis has been set-up at [facility]. 04/16: Needs SNF, has outpatient dialysis set up 04/17: Rapid COVID 19 returns positive, plans for dc to SNF and outpatient dialysis 04/18: Hemodialysis. No significant complaints. COVID-19 was positive on repeat testing. She is not currently hypoxic and not feel any symptoms 04/19: Orthostatic positive with therapy today. She just feels weak overall and feels her neck is weak. No loss of atm servicer strength. Needs rehab. 04/20: Still orthostatic positive. She is a little stronger today but still profoundly weak. Still needs rehab. Hold antihypertensives and started midodrine today. 04/21: Still fairly orthostatic and very weak. She needs help getting up in bed and eating today. Started on midodrine. Needs continued dialysis. 04/22: Orthostasis minimally improved. Still feeling very weak. Navarro with no urine output replaced into the urinary bladder with some urine output nearly 100 cc. 04/23 Valuated examined at bedside seen during dialysis. No major complaints today other than ongoing weakness. Looks like she will be able to go to rehab facility once out of Covid window. Otherwise continue current. 04/24 Seen and examined at bedside. No major clinical changes. Accepted by facility on the as she will be out of Covid window then. Continue current and will plan for discharge that day 04/25 Evaluate examined at bedside. Clinically not much change. Still planning for discharge Friday to facility. 04/26 Evaluate examined at bedside. Still having some trouble with orthostasis when working with PT. Increase midodrine yesterday we will see how today goes. Still hoping for discharge tomorrow. But we will see how PT session goes today 04/27 Evaluated examined at bedside. Was able to work with therapy yesterday. Will prescribe Midrin on discharge. Discharging to facility today. Greater than 30 minutes spent on this discharge. 19 minutes advance care planning. Disposition: Disposition/Orders: D/C to Another Facility Activity: Activity: Resume previous activity Diet: Diet: Cardiac Medications: Home Meds Active Scripts Midodrine Hcl (MIDODRINE HCL) 2.5 Mg Tablet, 5 MG PO [id number] for hypotension for 30 Days, #90 TAB Prov:LAURIE SHARMA MD 04/27/21 Insulin Aspart (NOVOLOG) 100 Unit/1 Ml Cartridge, 5 UNIT SQ TIDAC for dm for 30 Days, #1 EACH Prov:NARCISO SHIELDS III DO 04/17/21 Insulin Glargine,Hum.rec.anlog (LANTUS) 100 Unit/1 Ml Vial, 8 UNIT SQ QHS for . for 30 Days, #1 EACH Prov:TONEY SHIELDSL K III DO 04/17/21 Amlodipine Besylate (AMLODIPINE BESYLATE) 5 Mg Tablet, 5 MG PO DAILY for htn for 60 Days, #60 TAB Prov:LAURIE SHARMA MD 03/06/21 Linezolid (ZYVOX) 600 Mg Tablet, 600 MG PO BID for infection for 4 Days, #8 TAB Prov:LAURIE SHARMA MD 03/06/21 Amoxicillin/Potassium Clav (AMOX TR-K CLV 500-125 MG TAB) 1 Each Tablet, 1 TAB PO BID for infection for 4 Days, #8 TAB Prov:LAURIE SHARMA MD 03/06/21 Polyethylene Glycol 3350 (POLYETHYLENE GLYCOL 3350) 17 Gm Powd.pack, 17 GM PO DAILY PRN for CONSTIPATION for 30 Days, #30 PKT 1 Refill Prov:TIAN NYE MD 12/26/20 Aspirin (ASPIRIN) 81 Mg Tab.chew, 1 TAB PO DAILY for A-fib prophylaxis, #30 TAB 3 Refills Prov:TIAN NYE MD 12/26/20 Nystatin (NYSTOP) 60 Gm Powder, 1 VU TP QID for yeast infection for 15 Days, #1 MISC Prov:JASON TILLEY MD 10/21/19 Lactobacillus Rhamnosus Gg (CULTURELLE) 1 Each Cap.sprink, 1 CAP PO BID for probiotic for 30 Days, #60 CAP Prov:JASON TILLEY MD 10/21/19 Ferrous Sulfate (FEOSOL) 325 Mg Tablet, 325 MG PO BIDWMEALS for iron deficiency anemia for 30 Days, #60 TAB Prov:JASON TILLEY MD 10/21/19 Acetaminophen (TYLENOL) 325 Mg Tablet, 1-2 TAB PO QID PRN for PAIN, #60 TAB Prov:LILI SCHAEFER MD 09/09/19 Reported Medications Furosemide (FUROSEMIDE) 40 Mg Tablet, 1 TAB PO DAILY for edema, #30 TAB 5 Refills 10/14/19 Ergocalciferol (Vitamin D2) (VITAMIN D2) 50,000 Unit Capsule, 1 CAP PO WEEKLY, #4 CAP 5 Refills 06/21/16 Pantoprazole Sodium (PANTOPRAZOLE SODIUM ) 40 Mg Tablet.dr, 1 TAB PO DAILY, #30 TAB 3 Refills 04/01/16 Atorvastatin Calcium (ATORVASTATIN CALCIUM) 40 Mg Tablet, 1 TAB PO QHS, #90 TAB 3 Refills 04/01/16 Scheduled Amlodipine Besylate (Amlodipine Besylate), 5 MG PO DAILY Amoxicillin/Potassium Clav (Amox Tr-K Clv 500-125 Mg Tab), 1 TAB PO BID Aspirin (Aspirin), 1 TAB PO DAILY Atorvastatin Calcium (Atorvastatin Calcium), 1 TAB PO QHS, (Reported) Ergocalciferol (Vitamin D2) (Vitamin D2), 1 CAP PO WEEKLY, (Reported) Ferrous Sulfate (Feosol), 325 MG PO BIDWMEALS Furosemide (Furosemide), 1 TAB PO DAILY, (Reported) Insulin Aspart (Novolog), 5 UNIT SQ TIDAC Insulin Glargine,Hum.rec.anlog (Lantus), 8 UNIT SQ QHS Lactobacillus Rhamnosus Gg (Culturelle), 1 CAP PO BID Linezolid (Zyvox), 600 MG PO BID Midodrine Hcl (Midodrine Hcl), 5 MG PO [id number] Nystatin (Nystop), 1 VU TP QID Pantoprazole Sodium (Pantoprazole Sodium ), 1 TAB PO DAILY, (Reported) Scheduled PRN Acetaminophen (Tylenol), 1-2 TAB PO QID PRN for PAIN Polyethylene Glycol 3350 (Polyethylene Glycol 3350), 17 GM PO DAILY PRN for CONSTIPATION Justicifation of Admission Dx: Justifications for Admission: Justification of Admission Dx: Yes Acute Renal Failure: RF Can't Be Managed Outpt Chronic Renal Failure: Renail Failure LAURIE SHARMA MD Apr 27, 2021 13:42
[2021-04-27] MEDS: ACETAMINOPHEN 325 MG TABLET. PO PRN (13:56)
[2021-04-27 14:36] VITALS: BP 100/44
--- NOTE | 2021-04-27 16:15 | NUR ---
Pt picked up on a stretcher by [facility] for transport to [facility]
== END 2021-04-27 16:00 | DRG 698 ==
LOC: ER 16:01 → ED HOLD 19:40 → 5 SOUTH 04-06 17:59 → 4 NORTH 04-08 13:45 → 6 SOUTH 04-17 21:51
PROVIDERS: ADMIT Internal Medicine; ATTEND Internal Medicine
PROC: 30233N1 Transfusion of Nonautologous Red Blood Cells into Peripheral Vein, Percutaneous Approach (ICD-10-PCS; 2021-04-06)
PROC: 02H633Z Insertion of Infusion Device into Right Atrium, Percutaneous Approach (ICD-10-PCS; principal; 2021-04-10)
PROC: B5181ZA Fluoroscopy of Superior Vena Cava using Low Osmolar Contrast, Guidance (ICD-10-PCS; 2021-04-10)
PROC: B548ZZA Ultrasonography of Superior Vena Cava, Guidance (ICD-10-PCS; 2021-04-10)
PROC: 0JH63XZ Insertion of Tunneled Vascular Access Device into Chest Subcutaneous Tissue and Fascia, Percutaneous Approach (ICD-10-PCS; 2021-04-10)
PROC: 5A1D70Z Performance of Urinary Filtration, Intermittent, Less than 6 Hours Per Day (ICD-10-PCS; 2021-04-18)
PROC: 5A1D70Z Performance of Urinary Filtration, Intermittent, Less than 6 Hours Per Day (ICD-10-PCS; 2021-04-23)
PROC: 5A1D70Z Performance of Urinary Filtration, Intermittent, Less than 6 Hours Per Day (ICD-10-PCS; 2021-04-25)
PROC: 5A1D70Z Performance of Urinary Filtration, Intermittent, Less than 6 Hours Per Day (ICD-10-PCS; 2021-04-27)
DX: T83.511A Infection and inflammatory reaction due to indwelling urethral catheter, initial encounter (principal); N17.0 Acute kidney failure with tubular necrosis; N18.6 End stage renal disease; U07.1 COVID-19; N13.6 Pyonephrosis; I13.2 Hypertensive heart and chronic kidney disease with heart failure and with stage 5 chronic kidney disease, or end stage renal disease; D64.9 Anemia, unspecified; E78.00 Pure hypercholesterolemia, unspecified; E11.22 Type 2 diabetes mellitus with diabetic chronic kidney disease; E66.01 Morbid (severe) obesity due to excess calories; E78.5 Hyperlipidemia, unspecified; E86.0 Dehydration; E87.5 Hyperkalemia; I48.0 Paroxysmal atrial fibrillation; I50.9 Heart failure, unspecified; I89.0 Lymphedema, not elsewhere classified; S01.91XA Laceration without foreign body of unspecified part of head, initial encounter; S80.02XA Contusion of left knee, initial encounter; W06.XXXA Fall from bed, initial encounter; Y84.6 Urinary catheterization as the cause of abnormal reaction of the patient, or of later complication, without mention of misadventure at the time of the procedure; Y92.003 Bedroom of unspecified non-institutional (private) residence as the place of occurrence of the external cause; Z20.822 Contact with and (suspected) exposure to COVID-19; Z78.9 Other specified health status; Z82.49 Family history of ischemic heart disease and other diseases of the circulatory system; Z86.711 Personal history of pulmonary embolism; Z86.718 Personal history of other venous thrombosis and embolism; Z99.2 Dependence on renal dialysis; K21.9 Gastro-esophageal reflux disease without esophagitis; M10.9 Gout, unspecified; M19.90 Unspecified osteoarthritis, unspecified site; I95.9 Hypotension, unspecified; Z79.01 Long term (current) use of anticoagulants; D50.9 Iron deficiency anemia, unspecified
CPT/HCPCS: 36415; 36430; 36558; 71045; 74176; 76770; 76937; 77001; 80048; 80053; 81001; 82550; 82962; 83540; 83550; 83605; 84100; 84145; 84484; 85007; 85025; 85027; 85610; 86704; 86706; 86707; 86850; 86900; 86901; 86920; 87040; 87086; 87106; 87340; 87426; 93005; 99152; 99153; A4314; C1750; C1892; J0690; J0696; J1644; J1756; J1815; J2250; J2405; J3010; J3490; J7030; J7040; J7050; P9016; P9046; U0003; U0005; 97110-GO; 97110-GP; 97530-GO; 97530-GP; 97535-GO; 99285-25; G0378

== ENCOUNTER 2021-06-04 10:40 | Inpatient (IN) | payer MEDICARE ==
[~2021-06-04] VITALS: Ht 160 cm; Wt 89.5 kg
[~2021-06-04 10:40] MED LIST changes: +INSU100C4 SQ; +MIDO2.5T PO
--- NOTE | 2021-06-04 12:09 | PHYS DOC ---
Past Medical History Past Medical History: A-Fib, Anemia, CHF, Diabetes-Type II, DVT, High Cho lesterol, Hypertension, Pneumonia, Renal Failure, UTI, Other Additional Past Medical Histor: PE,lymphedema,RENAL FAILURE,ACUTE RESP FAILURE Past Surgical History: Tonsillectomy, Other Additional Past Surgical Histo: chest while /TUBES IN LUNGS Smoking Status: Never Smoker Alcohol Use: None Drug Use: None General Adult EDM: Chief Complaint: DIALYSIS PROBLEM HPI: HPI: Patient is a 81 year old female patient who presents for evaluation of problems with her temporary dialysis catheter. She is normally supposed to dialyze on Friday, Friday and Friday. She went to [facility] to have dialysis last Friday, but they report that the dialysis catheter "was not working." She does not know the details of this. She was subsequently sent to another outpatient facility to "have it fixed." She cannot remove the name or the facility, no other physician that she saw. She had a temperature of 101 degrees that day, so they told her to go home. She reportedly has been waiting for some sort of phone call back from the dialysis center or presumably from a vascular surgeon for follow-up, she never received any call, so she came in by ambulance today. She denies any physical pain or discomfort. She has not had a fever today. She has chronic urinary urgency and frequency, no changes today. She denies chest pain, dyspnea, palpitations, dizziness, headache, abdominal pain, nausea, vomiting. She denies bowel habit changes. She reports that she has been eating and drinking normally. She has no other complaints other than she needs dialysis, and she feels that there may be a problem with her dialysis catheter. These discussions were all had as an outpatient, I have no documentation of this, and I am only able to account for her previous inpatient visits. Review of Systems: Review of Systems: Constitutional: Denies fever or chills. [] HENT: Denies nasal congestion or sore throat. [] Respiratory: Denies cough or shortness of breath. [] Cardiovascular: Denies chest pain GI: Denies abdominal pain, nausea, vomiting, or diarrhea : Denies dysuria. She has chronic urinary urgency and frequency. No gross hematuria reported Musculoskeletal: Denies back pain or joint pain. [] Integument: Denies rash. [] Neurologic: Denies headache, focal weakness or sensory changes. Denies dizziness or syncope. Psychiatric: Denies depression or anxiety. [] Heart Score: C/O Chest Pain: No Risk Factors: Risk Factors: DM, Current or recent (<one month) smoker, HTN, HLP, family history of CAD, obesity. Risk Scores: Score 0 - 3: 2.5% MACE over next 6 weeks - Discharge Home Score 4 - 6: 20.3% MACE over next 6 weeks - Admit for Clinical Observation Score 7 - 10: 72.7% MACE over next 6 weeks - Early Invasive Strategies Allergies: Allergies: Allergies Coded Allergies Type Severity Reaction Last Updated Verified No Known Drug Allergies 04/05/21 No Physical Exam: PE: Constitutional: Well developed, well nourished, no acute distress, non-toxic appearance. Chronically ill-appearing female, frail, resting comfortably and in no acute distress HEENT: Normocephalic, atraumatic, bilateral external ears normal, oropharynx moist, no oral exudates, nose normal. [] Eyes: Conjunctive are clear, sclera anicteric Neck: Normal range of motion, no tenderness, supple, no stridor. No meningismus, trachea midline. Cardiovascular:Heart rate regular rhythm, +2 radial and +2 posterior tibial pulses bilaterally Lungs & Thorax: Bilateral breath sounds clear to auscultation, equal chest rise, no evidence of chest or thorax trauma, no rales, rhonchi or wheezes. No evidence of respiratory distress. Dialysis catheter in the right chest, no surrounding warmth or erythema. Abdomen: Abdomen is obese, soft, nondistended, nontender to palpation. Skin: Warm, dry, no erythema, no rash. [] Back: No tenderness, no CVA tenderness. [] Extremities: No tenderness, no cyanosis, no clubbing, ROM intact, no calf tenderness. Bilateral, symmetric 1+ lower extremity edema. Neurologic: Alert and oriented X 3, normal motor function, normal sensory function, no focal deficits noted. [] Psychologic: Affect normal, judgement normal, mood normal. She is very pleasant cooperative. Current Patient Data: Vital Signs: Vital Signs Date Time Temp Pulse Resp B/P (MAP) Pulse Ox O2 Delivery O2 Flow Rate FiO2 06/04/21 11:36 97.7 124 28 89/53 (65) 99 Room Air 97.7 EKG: EKG: EKG is interpreted 1234 Rhythm is sinus Rate is 92 bpm [place] is normal No STEMI Radiology/Procedures: Radiology/Procedures: [] Course & Med Decision Making: Course & Med Decision Making Pertinent Labs and Imaging studies reviewed. (See chart for details) Blood cultures obtained. Small fluid boluses given. IV Rocephin empirically given for urinary tract infection. Happily, her potassium appears to be normal. EKG is unremarkable. She still denies any physical complaints, pain or discomfort. I discussed the findings, differential diagnosis and plan of care. I explained my recommendation for hospitalization, nephrology consultation and likely vascular surgery consultation for troubleshooting of possible dialysis ca theter problems. She is comfortable with the plan of care. She is accepted for admission by Dr. Callahan. Sam Disclaimer: Sam Disclaimer: This electronic medical record was generated, in whole or in part, using a voice recognition dictation system. Departure Departure Impression: Primary Impression: UTI (urinary tract infection) Additional Impressions: Chronic kidney disease with end stage renal failure on dialysis Encounter for dialysis catheter care Disposition: ADMITTED INPATIENT Admitting Physician: CHATO (Dr. Callahan) Condition: STABLE Referrals: NON,STAFF (PCP) NILSA CALLAWAY DO Jun 04, 2021 12:09
[2021-06-04 12:47] LABS: BASO # 0.1 x10^3/uL (0.0-0.2); BASO % 1 % (0-3); EOS # 0.1 x10^3/uL (0.0-0.7); EOS % 1 % (0-3); HEMATOCRIT 25.5 % (36.0-47.0); HEMOGLOBIN 8.1 g/dL (12.0-15.5); LYMPH # 1.1 x10^3/uL (1.0-4.8); LYMPH % 14 % (24-48); MEAN CORPUSCULAR HEMOGLOBIN 31 pg (25-35); MEAN CORPUSCULAR HGB CONC 32 g/dL (31-37); MEAN CORPUSCULAR VOLUME 98 fL (79-100); MONO # 0.5 x10^3/uL (0.0-1.1); MONO % 7 % (0-9); NEUT % 77 % (31-73); PLATELET COUNT 410 x10^3/uL (140-400); RED BLOOD COUNT 2.61 x10^6/uL (3.50-5.40); RED CELL DISTRIBUTION WIDTH 17.3 % (11.5-14.5); WHITE BLOOD COUNT 7.7 x10^3/uL (4.0-11.0)
[2021-06-04 13:06] LABS: BILIRUBIN,URINE NEGATIVE (NEG); CLARITY,URINE TURBID; COLOR,URINE YELLOW; NITRITE,URINE NEGATIVE (NEG); PROTEIN,URINE 100 mg/dL (NEG-TRACE); UROBILINOGEN,URINE 0.2 mg/dL (0.2 mg/dL)
[2021-06-04 13:07] LABS: BACTERIA,URINE MANY /HPF (0-FEW); RBC,URINE FIELD OBSCURED /HPF (0-2); WBC,URINE TNTC /HPF (0-4)
[2021-06-04 13:32] LABS: CALCIUM 8.9 mg/dL (8.5-10.1); GFR 6.7; POTASSIUM 4.1 mmol/L (3.5-5.1)
[2021-06-04 13:38] LABS: ALBUMIN 1.9 g/dL (3.4-5.0); ALBUMIN/GLOBULIN RATIO 0.4 (1.0-1.7); TOTAL BILIRUBIN 0.2 mg/dL (0.2-1.0); TOTAL PROTEIN 6.9 g/dL (6.4-8.2)
[2021-06-04] MEDS ORDERED: IV NORMAL SALINE 500ML BAG 500 ML IV ONE (14:15)
[2021-06-04] MEDS ORDERED: cefTRIAXone IV Push 1 GM VIAL. IVP ONE (14:15)
[2021-06-04] MEDS ORDERED: ACETAMINOPHEN 325 MG TABLET. PO PRN ×3 (15:30→18:45)
[2021-06-04] MEDS ORDERED: CALCIUM CARBONATE 500 MG TAB.CHEW PO PRN (15:30)
[2021-06-04] MEDS ORDERED: ELECTROLYTE (NON-ICU) PROTOCOL. MC PRN (15:30)
[2021-06-04] MEDS ORDERED: ONDANSETRON PF 4 MG/2 ML VIAL. IVP PRN (15:30)
[2021-06-04 16:30] VITALS: BP 133/68
[2021-06-04 19:00] VITALS: BP 116/57
--- NOTE | 2021-06-04 19:09 | PDOC1 ---
History and Physical Date of Service: DOS: DATE: 06/04/21 TIME: 19:08 Chief Complaint: Chief Complain: dialysis catheter problem History of Present Illness: HPI: Patient is an 81yo female presenting for problem with dialysis catheter. MWF dialysis patient. Apparently went to dialysis last Friday and they informed her her dialysis line was not working and needed to have it fixed. She really is unsure of the details. Unable to go anywhere for this until she presented today. Was febrile to 101 and said she was told to go home from a different outpatient center? Either way presenting today needing dialysis. Other than this no major complaints Past Medical/Surgical History: PMH/PSH: Past Medical History: A-Fib, Anemia, CHF, Diabetes-Type II, DVT, High Cholesterol, Hypertension, Pneumonia, Renal Failure, UTI, Other Additional Past Medical Histor: PE,lymphedema,RENAL FAILURE,ACUTE RESP FAILURE Past Surgical History: Tonsillectomy, Other Additional Past Surgical Histo: chest while /TUBES IN LUNGS Smoking Status: Never Smoker Alcohol Use: None Drug Use: None Allergies: Allergies: Coded Allergies: No Known Drug Allergies (Unverified , 04/05/21) Family History: Family History: HTN Current Medications: Current Medications Current Medications Ceftriaxone Sodium (Rocephin) 1 gm 1X ONCE IVP Last administered on 06/04/21at 14:16; Start 06/04/21 at 14:15; Stop 06/04/21 at 14:16; Status DC Sodium Chloride 500 ml @ 500 mls/hr 1X ONCE IV Last administered on 06/04/21at 14:15; Start 06/04/21 at 14:15; Stop 06/04/21 at 15:14; Status DC Ondansetron HCl (Zofran) 4 mg PRN Q6HRS PRN IVP NAUSEA/VOMITING; Start 06/04/21 at 15:30 Calcium Carbonate/ Glycine (Tums) 500 mg PRN Q3HRS PRN PO UPSET STOMACH; Start 06/04/21 at 15:30 Info (Non-Icu Electrolyte Protocol) 1 ea PRN DAILY PRN MC SEE COMMENTS; Start 06/04/21 at 15:30 Acetaminophen (Tylenol) 650 mg PRN Q6HRS PRN PO Headaches, Temp > 101.5F; Start 06/04/21 at 15:30; Status Cancel Senna/Docusate Sodium (Senna Plus) 1 tab BID PO ; Start 06/04/21 at 21:00 Heparin Sodium (Porcine) (Heparin Sodium) 5,000 unit Q8HRS SQ ; Start 06/04/21 at 22:00 Acetaminophen (Tylenol) 325 mg PRN QID PRN PO PAIN; Start 06/04/21 at 18:30 Amlodipine Besylate (Norvasc) 5 mg DAILY PO ; Start 06/05/21 at 09:00 Aspirin (Aspirin Chewable) 81 mg DAILY PO ; Start 06/05/21 at 09:00 Atorvastatin Calcium (Lipitor) 40 mg QHS PO ; Start 06/04/21 at 21:00 Ergocalciferol (Vitamin D2) 50,000 unit WEEKLY PO ; Start 06/11/21 at 09:00 Ferrous Sulfate (Feosol) 325 mg BIDWMEALS PO ; Start 06/04/21 at 21:00 Furosemide (Lasix) 40 mg DAILY PO ; Start 06/05/21 at 09:00 Insulin Glargine (Lantus Syringe) 8 unit QHS SQ ; Start 06/04/21 at 21:00 Lactobacillus Rhamnosus (Culturelle) 1 cap BID PO ; Start 06/04/21 at 21:00 Midodrine (Proamatine) 5 mg [id number] PO ; Start 06/05/21 at 07:00 Nystatin (Nystop) 1 laurel QID TP ; Start 06/04/21 at 21:00 Pantoprazole Sodium (Protonix) 40 mg DAILYAC PO ; Start 06/05/21 at 07:30 Polyethylene Glycol (miraLAX PACKET) 17 gm DAILY PRN PO CONSTIPATION; Start 06/04/21 at 18:30 Insulin Human Lispro (HumaLOG) 5 units TIDWMEALS SQ ; Start 06/04/21 at 20:00 Acetaminophen (Tylenol) 650 mg PRN QID PRN PO PAIN; Start 06/04/21 at 18:45 Active Scripts Active Midodrine Hcl 2.5 Mg Tablet 5 Mg PO [id number] 30 Days Novolog (Insulin Aspart) 100 Unit/1 Ml Cartridge 5 Unit SQ TIDAC 30 Days Lantus (Insulin Glargine,Hum.rec.anlog) 100 Unit/1 Ml Vial 8 Unit SQ QHS 30 Days Amlodipine Besylate 5 Mg Tablet 5 Mg PO DAILY 60 Days Polyethylene Glycol 3350 17 Gm Powd.pack 17 Gm PO DAILY PRN 30 Days Aspirin 81 Mg Tab.chew 1 Tab PO DAILY Nystop (Nystatin) 60 Gm Powder 1 Laurel TP QID 15 Days Culturelle (Lactobacillus Rhamnosus Gg) 1 Each Cap.sprink 1 Cap PO BID 30 Days Feosol (Ferrous Sulfate) 325 Mg Tablet 325 Mg PO BIDWMEALS 30 Days Tylenol (Acetaminophen) 325 Mg Tablet 1-2 Tab PO QID PRN Reported Furosemide 40 Mg Tablet 1 Tab PO DAILY Vitamin D2 (Ergocalciferol (Vitamin D2)) 50,000 Unit Capsule 1 Cap PO WEEKLY Pantoprazole Sodium (Pantoprazole Sodium) 40 Mg Tablet.dr 1 Tab PO DAILY Atorvastatin Calcium 40 Mg Tablet 1 Tab PO QHS ROS: Review of Systems Review of System Unless noted in HPI 14pt ROS was negative Physical Exam: Vital Signs: Vital Signs Date Time Temp Pulse Resp B/P (MAP) Pulse Ox O2 Delivery O2 Flow Rate FiO2 06/04/21 17:00 Room Air 06/04/21 16:30 97.5 89 20 133/68 (89) 91 97.5 Physcial Exam: GEN: No apparent distress. Alert and oriented HEENT: Normal cephalic, atraumatic, external auditory canals are patent EYES: Extraocular muscles are intact, pupil are equally round and reactive to light and accommodation MUSCULOSKELETAL: Well developed , well nourished, good range of motion ENDOCRINE: No thyromegaly was palpated LYMPHATICS: No cervical chain or axillary nodes were noted HEMATOPOIETIC: No bruising NECK: Supple, no JVD, no thyromegaly was noted LUNGS: Clear to auscultation in all lung huggins without rhonchi or wheezing HEART: RRR, S1, S2 present. Peripheral pulses intact, no obvious murmurs noted ABDOMEN: Soft, nontender. Positive bowel sounds, no organomegaly, normal bowel sounds EXTREMITIES: Without clubbing, cyanosis, or edema. Pedal pulses intact. Negative Homans sign NEUROLOGIC: Normal speech and tone. A&O x 3, moves all extremities, no obvious focal deficits PSYCHIATRIC: Normal affect, normal mood. Stable SKIN: No ulcerations or rashes, good skin turgor, no jaundice VASCULAR: Good capillary refill, neurovascular bundle appears to be intact Labs: Labs: Laboratory Tests Test 06/04/21 12:30 06/04/21 12:45 06/04/21 16:45 06/04/21 17:11 White Blood Count 7.7 x10^3/uL (4.0-11.0) Red Blood Count 2.61 x10^6/uL (3.50-5.40) Hemoglobin 8.1 g/dL (12.0-15.5) Hematocrit 25.5 % (36.0-47.0) Mean Corpuscular Volume 98 fL (79-100) Mean Corpuscular Hemoglobin 31 pg (25-35) Mean Corpuscular Hemoglobin Concent 32 g/dL (31-37) Red Cell Distribution Width 17.3 % (11.5-14.5) Platelet Count 410 x10^3/uL (140-400) Neutrophils (%) (Auto) 77 % (31-73) Lymphocytes (%) (Auto) 14 % (24-48) Monocytes (%) (Auto) 7 % (0-9) Eosinophils (%) (Auto) 1 % (0-3) Basophils (%) (Auto) 1 % (0-3) Neutrophils # (Auto) 6.0 x10^3/uL (1.8-7.7) Lymphocytes # (Auto) 1.1 x10^3/uL (1.0-4.8) Monocytes # (Auto) 0.5 x10^3/uL (0.0-1.1) Eosinophils # (Auto) 0.1 x10^3/uL (0.0-0.7) Basophils # (Auto) 0.1 x10^3/uL (0.0-0.2) Sodium Level 141 mmol/L (136-145) Potassium Level 4.1 mmol/L (3.5-5.1) Chloride Level 104 mmol/L (98-107) Carbon Dioxide Level 23 mmol/L (21-32) Anion Gap 14 (6-14) Blood Urea Nitrogen 46 mg/dL (7-20) Creatinine 6.0 mg/dL (0.6-1.0) Estimated GFR (Cockcroft-Gault) 6.7 BUN/Creatinine Ratio 8 (6-20) Glucose Level 285 mg/dL (70-99) Lactic Acid Level 2.6 mmol/L (0.4-2.0) 1.2 mmol/L (0.4-2.0) Calcium Level 8.9 mg/dL (8.5-10.1) Total Bilirubin 0.2 mg/dL (0.2-1.0) Aspartate Amino Transf (AST/SGOT) 16 U/L (15-37) Alanine Aminotransferase (ALT/SGPT) 7 U/L (14-59) Alkaline Phosphatase 122 U/L (46-116) Total Protein 6.9 g/dL (6.4-8.2) Albumin 1.9 g/dL (3.4-5.0) Albumin/Globulin Ratio 0.4 (1.0-1.7) Urine Collection Type U cath Urine Color Yellow Urine Clarity Turbid Urine pH 7.0 (<5.0-8.0) Urine Specific [place] 1.025 (1.000-1.030) Urine Protein 100 mg/dL (NEG-TRACE) Urine Glucose (UA) Negative mg/dL (NEG) Urine Ketones (Stick) Negative mg/dL (NEG) Urine Blood Moderate (NEG) Urine Nitrite Negative (NEG) Urine Bilirubin Negative (NEG) Urine Urobilinogen Dipstick 0.2 mg/dL (0.2 mg/dL) Urine Leukocyte Esterase Large (NEG) Urine RBC Field obscured /HPF (0-2) Urine WBC Tntc /HPF (0-4) Urine Bacteria Many /HPF (0-FEW) Glucose (Fingerstick) 89 mg/dL (70-99) Laboratory Tests Test 06/04/21 12:30 06/04/21 12:45 06/04/21 16:45 06/04/21 17:11 White Blood Count 7.7 x10^3/uL (4.0-11.0) Red Blood Count 2.61 x10^6/uL (3.50-5.40) Hemoglobin 8.1 g/dL (12.0-15.5) Hematocrit 25.5 % (36.0-47.0) Mean Corpuscular Volume 98 fL (79-100) Mean Corpuscular Hemoglobin 31 pg (25-35) Mean Corpuscular Hemoglobin Concent 32 g/dL (31-37) Red Cell Distribution Width 17.3 % (11.5-14.5) Platelet Count 410 x10^3/uL (140-400) Neutrophils (%) (Auto) 77 % (31-73) Lymphocytes (%) (Auto) 14 % (24-48) Monocytes (%) (Auto) 7 % (0-9) Eosinophils (%) (Auto) 1 % (0-3) Basophils (%) (Auto) 1 % (0-3) Neutrophils # (Auto) 6.0 x10^3/uL (1.8-7.7) Lymphocytes # (Auto) 1.1 x10^3/uL (1.0-4.8) Monocytes # (Auto) 0.5 x10^3/uL (0.0-1.1) Eosinophils # (Auto) 0.1 x10^3/uL (0.0-0.7) Basophils # (Auto) 0.1 x10^3/uL (0.0-0.2) Sodium Level 141 mmol/L (136-145) Potassium Level 4.1 mmol/L (3.5-5.1) Chloride Level 104 mmol/L (98-107) Carbon Dioxide Level 23 mmol/L (21-32) Anion Gap 14 (6-14) Blood Urea Nitrogen 46 mg/dL (7-20) Creatinine 6.0 mg/dL (0.6-1.0) Estimated GFR (Cockcroft-Gault) 6.7 BUN/Creatinine Ratio 8 (6-20) Glucose Level 285 mg/dL (70-99) Lactic Acid Level 2.6 mmol/L (0.4-2.0) 1.2 mmol/L (0.4-2.0) Calcium Level 8.9 mg/dL (8.5-10.1) Total Bilirubin 0.2 mg/dL (0.2-1.0) Aspartate Amino Transf (AST/SGOT) 16 U/L (15-37) Alanine Aminotransferase (ALT/SGPT) 7 U/L (14-59) Alkaline Phosphatase 122 U/L (46-116) Total Protein 6.9 g/dL (6.4-8.2) Albumin 1.9 g/dL (3.4-5.0) Albumin/Globulin Ratio 0.4 (1.0-1.7) Urine Collection Type U cath Urine Color Yellow Urine Clarity Turbid Urine pH 7.0 (<5.0-8.0) Urine Specific [place] 1.025 (1.000-1.030) Urine Protein 100 mg/dL (NEG-TRACE) Urine Glucose (UA) Negative mg/dL (NEG) Urine Ketones (Stick) Negative mg/dL (NEG) Urine Blood Moderate (NEG) Urine Nitrite Negative (NEG) Urine Bilirubin Negative (NEG) Urine Urobilinogen Dipstick 0.2 mg/dL (0.2 mg/dL) Urine Leukocyte Esterase Large (NEG) Urine RBC Field obscured /HPF (0-2) Urine WBC Tntc /HPF (0-4) Urine Bacteria Many /HPF (0-FEW) Glucose (Fingerstick) 89 mg/dL (70-99) Assessment/Plan Assessment/Plan Dialysis catheter problem, renal failure, UTI; Hx Afib, CHF, DM2, HTN, HPLD -presenting today unable to receive dialysis since last Friday (went Friday but problem with line) -will consult IR regarding line as they last placed this -if urgent dialysis overnight can place temporary line at bedside -nephrology consultation -home meds resumed as indicated -renal diet -DVT prophylaxis -previously grew omar on urine, bacterial uti based on labs here, Rocephin in ER will continue -previously with hydronephrosis, if no improvement with dialysis can check imaging in regards to this Justifications for Admission Other Justification LAURIE SHARMA MD Jun 04, 2021 19:09
[2021-06-04] MEDS: INSULIN LISPRO 300 UNITS/3 ML VIAL. SQ SCH (20:00)
[2021-06-04] MEDS: FERROUS SULFATE 325 MG TABLET. PO SCH (21:00)
[2021-06-04] MEDS: INSULIN GLARGINE SYRINGE. SQ SCH (21:00)
[2021-06-04] MEDS: HEPARIN for SUB-Q USE 5,000 UNIT/ML VIAL. SQ SCH (21:51)
[2021-06-04] MEDS: SENNOSIDES/DOCUSATE 8.6/50MG TABLET. PO SCH (21:53)
[2021-06-04] MEDS: LACTOBACILLUS RHAMNOSUS GG 1 CAPSULE. PO SCH (21:53)
[2021-06-04] MEDS: ATORVASTATIN CALCIUM 40 MG TABLET. PO SCH (21:54)
[2021-06-04] MEDS: NYSTATIN TOPICAL POWDER 15GM BOTTLE. TP SCH (21:54)
[2021-06-04 23:30] VITALS: BP 101/43
[2021-06-05] VITALS (9 sets, daily range): BP systolic 92–127; BP diastolic 41–73
[2021-06-05] MEDS ORDERED: DEXTROSE 50% 25 GM / 50ML DISP.SYRIN. IV PRN (00:45)
[2021-06-05] MEDS ORDERED: IV DEXTROSE 5% 250 ML BAG. IV PRN (00:45)
[2021-06-05] MEDS: HEPARIN for SUB-Q USE 5,000 UNIT/ML VIAL. SQ SCH ×3 (05:51→21:18)
[2021-06-05] MEDS: MIDODRINE 5 MG TABLET PO SCH ×3 (07:00→18:14)
[2021-06-05] MEDS: PANTOPRAZOLE 40 MG TABLET.DR. PO SCH (07:30)
[2021-06-05] MEDS: INSULIN LISPRO 300 UNITS/3 ML VIAL. SQ SCH ×6 (08:00→18:25)
[2021-06-05] MEDS: FERROUS SULFATE 325 MG TABLET. PO SCH ×2 (08:00→15:53)
--- NOTE | 2021-06-05 08:22 | RAD ---
XR CHEST 1V Clinical Indication: Reason: eval dialysis line / Spl . Instructions: / History: Comparison: AP chest April 05, 2021. Findings: There is right IJ hemodialysis catheter, tip is in the right atrium. The cardiomediastinal silhouette is normal. Lungs are clear. There is no pneumothorax. No pleural effusion is appreciated. No acute b one abnormality. Degenerative endplate spurring of the thoracic spine. IMPRESSION: 1. Right IJ hemodialysis catheter tip is in the right atrium. 2. No acute cardiopulmonary process. Electronically signed by: Evan Del Rosario MD (06/05/2021 8:20 AM) [id number]
[2021-06-05] MEDS: LACTOBACILLUS RHAMNOSUS GG 1 CAPSULE. PO SCH ×2 (09:00→21:16)
[2021-06-05] MEDS: FUROSEMIDE 40 MG TABLET. PO SCH (09:00)
[2021-06-05] MEDS: NYSTATIN TOPICAL POWDER 15GM BOTTLE. TP SCH ×4 (09:00→21:00)
[2021-06-05] MEDS: ASPIRIN CHEWABLE 81 MG TABLET. PO SCH (09:00)
[2021-06-05] MEDS: SENNOSIDES/DOCUSATE 8.6/50MG TABLET. PO SCH ×2 (09:00→21:16)
--- NOTE | 2021-06-05 10:50 | PDOC2 ---
CONSULT Date of Consult Date of Consult DATE: 06/05/21 TIME: 10:46 Reason for Consult Reason for Consult: ESRD AND NON FUNCTIONING HD CATHETER Referring Physician Referring Physician: ZACHARY Identification/Chief Complaint Chief Complaint WEAKNESS AND NON FUNCTIONING TDC Source Source: Chart review, Patient History of Present Illness Reason for Visit: THIS IS AN 81 YR OLD WITH ESRD. HAS OP HD MWF. HAS BEEN UNABLE TO HAVE HD DUE TO NON FUNCTIONING HD CATHETER. WAS TO HAVE A NEW CATHETER OP BUT HAD A FEVER AND SO WAS NOT DONE. SHE IS NOW HERE AT THE HOSPITAL. NO FEVERS NOTED. NO LEUCOCYTOSIS. LABS C/W ESRD. SHE ALSO HAS A SEVERE UTI Past Medical History Cardiovascular: AFIB, HTN, Hyperlipidemia, Other Pulmonary: Pulmonary embolus, Other CENTRAL NERVOUS SYSTEM: Periperal neuropathy, Other GI: GERD Heme/Onc: Anemia NOS Hepatobiliary: No pertinent hx Psych: No pertinent hx Musculoskeletal: Osteoarthritis Rheumatologic: Gout Infectious disease: No pertinent hx Renal/: Chronic renal insuff, Acute renal failure Endocrine: Diabetes Past Surgical History Past Surgical History HX OF TUNNELED HD CATHETER Past Surgical History: Tonsillectomy Family History Family History: Hypertension Social History ALCOHOL: none Drugs: None Lives: Alone Current Problem List Problem List Problems Medical Problems: (1) Chronic kidney disease with end stage renal failure on dialysis Status: Acute (2) Encounter for dialysis catheter care Status: Acute Current Medications Current Medications Current Medications Ceftriaxone Sodium (Rocephin) 1 gm 1X ONCE IVP Last administered on 06/04/21at 14:16; Start 06/04/21 at 14:15; Stop 06/04/21 at 14:16; Status DC Sodium Chloride 500 ml @ 500 mls/hr 1X ONCE IV Last administered on 06/04/21at 14:15; Start 06/04/21 at 14:15; Stop 06/04/21 at 15:14; Status DC Ondansetron HCl (Zofran) 4 mg PRN Q6HRS PRN IVP NAUSEA/VOMITING; Start 06/04/21 at 15:30 Calcium Carbonate/ Glycine (Tums) 500 mg PRN Q3HRS PRN PO UPSET STOMACH; Start 06/04/21 at 15:30 Info (Non-Icu Electrolyte Protocol) 1 ea PRN DAILY PRN MC SEE COMMENTS; Start 06/04/21 at 15:30 Acetaminophen (Tylenol) 650 mg PRN Q6HRS PRN PO Headaches, Temp > 101.5F; Start 06/04/21 at 15:30; Status Cancel Senna/Docusate Sodium (Senna Plus) 1 tab BID PO Last administered on 06/04/21at 21:53; Start 06/04/21 at 21:00 Heparin Sodium (Porcine) (Heparin Sodium) 5,000 unit Q8HRS SQ Last administered on 06/05/21at 05:51; Start 06/04/21 at 22:00 Acetaminophen (Tylenol) 325 mg PRN QID PRN PO PAIN; Start 06/04/21 at 18:30 Amlodipine Besylate (Norvasc) 5 mg DAILY PO ; Start 06/05/21 at 09:00 Aspirin (Aspirin Chewable) 81 mg DAILY PO ; Start 06/05/21 at 09:00 Atorvastatin Calcium (Lipitor) 40 mg QHS PO Last administered on 06/04/21at 21:54; Start 06/04/21 at 21:00 Ergocalciferol (Vitamin D2) 50,000 unit WEEKLY PO ; Start 06/11/21 at 09:00 Ferrous Sulfate (Feosol) 325 mg BIDWMEALS PO Last administered on 06/04/21at 21:00; Start 06/04/21 at 21:00 Furosemide (Lasix) 40 mg DAILY PO ; Start 06/05/21 at 09:00 Insulin Glargine (Lantus Syringe) 8 unit QHS SQ ; Start 06/04/21 at 21:00 Lactobacillus Rhamnosus (Culturelle) 1 cap BID PO Last administered on 06/04/21at 21:53; Start 06/04/21 at 21:00 Midodrine (Proamatine) 5 mg [id number] PO ; Start 06/05/21 at 07:00 Nystatin (Nystop) 1 laurel QID TP Last administered on 06/04/21at 21:54; Start 06/04/21 at 21:00 Pantoprazole Sodium (Protonix) 40 mg DAILYAC PO ; Start 06/05/21 at 07:30 Polyethylene Glycol (miraLAX PACKET) 17 gm DAILY PRN PO CONSTIPATION; Start 06/04/21 at 18:30 Insulin Human Lispro (HumaLOG) 5 units TIDWMEALS SQ ; Start 06/04/21 at 20:00 Acetaminophen (Tylenol) 650 mg PRN QID PRN PO PAIN; Start 06/04/21 at 18:45 Ceftriaxone Sodium (Rocephin) 1 gm Q24H IVP ; Start 06/05/21 at 14:00 Insulin Human Lispro (HumaLOG) 0-7 UNITS TIDWMEALS SQ ; Start 06/05/21 at 08:00 Dextrose (Dextrose 50%-Water Syringe) 12.5 gm PRN Q15MIN PRN IV SEE COMMENTS; Start 06/05/21 at 00:45 Dextrose (Iv Dextrose 5%) 250 ml PRN Q15MIN PRN IV SEE COMMENTS; Start 06/05/21 at 00:45 Active Scripts Active Midodrine Hcl 2.5 Mg Tablet 5 Mg PO [id number] 30 Days Novolog (Insulin Aspart) 100 Unit/1 Ml Cartridge 5 Unit SQ TIDAC 30 Days Lantus (Insulin Glargine,Hum.rec.anlog) 100 Unit/1 Ml Vial 8 Unit SQ QHS 30 Days Amlodipine Besylate 5 Mg Tablet 5 Mg PO DAILY 60 Days Polyethylene Glycol 3350 17 Gm Powd.pack 17 Gm PO DAILY PRN 30 Days Aspirin 81 Mg Tab.chew 1 Tab PO DAILY Nystop (Nystatin) 60 Gm Powder 1 Laurel TP QID 15 Days Culturelle (Lactobacillus Rhamnosus Gg) 1 Each Cap.sprink 1 Cap PO BID 30 Days Feosol (Ferrous Sulfate) 325 Mg Tablet 325 Mg PO BIDWMEALS 30 Days Tylenol (Acetaminophen) 325 Mg Tablet 1-2 Tab PO QID PRN Reported Furosemide 40 Mg Tablet 1 Tab PO DAILY Vitamin D2 (Ergocalciferol (Vitamin D2)) 50,000 Unit Capsule 1 Cap PO WEEKLY Pantoprazole Sodium (Pantoprazole Sodium) 40 Mg Tablet.dr 1 Tab PO DAILY Atorvastatin Calcium 40 Mg Tablet 1 Tab PO QHS Allergies Allergies: Coded Allergies: No Known Drug Allergies (Unverified , 04/05/21) ROS General: YES: Fatigue, Malaise PSYCHOLOGICAL ROS: YES: Anxiety Eyes: Yes Decreased vision HEENT: YES: Heacaches Respiratory: YES: Cough Gastrointestinal: Yes Nausea, Yes Constipation Genitourinary: YES Dysuria, YES Other Musculoskeletal: Yes Muscular Weakness Neurological: Yes Weakness Skin: Yes Dry Skin Physical Exam Physical Exam RIGHT IJ TDC. CLEAN WITH NO DRAINAGE General: Alert, Cooperative, No acute distress HEENT: Atraumatic, PERRLA Lungs: Clear to auscultation Heart: Regular rate Abdomen: Normal bowel sounds, Soft, No tenderness Extremities: No cyanosis Skin: No breakdown Neuro: Normal speech Psych/Mental Status: Mental status NL, Mood NL MUSCULOSKELETAL: No joint tenderness, No deformity Vitals VITALS Vital Signs Date Time Temp Pulse Resp B/P (MAP) Pulse Ox O2 Delivery O2 Flow Rate FiO2 06/05/21 09:00 86 92/41 06/05/21 08:00 Room Air 06/05/21 07:00 98.3 18 96 98.3 Labs Labs Laboratory Tests Test 06/04/21 12:30 06/04/21 12:45 06/04/21 16:45 06/04/21 17:11 White Blood Count 7.7 x10^3/uL (4.0-11.0) Red Blood Count 2.61 x10^6/uL (3.50-5.40) Hemoglobin 8.1 g/dL (12.0-15.5) Hematocrit 25.5 % (36.0-47.0) Mean Corpuscular Volume 98 fL (79-100) Mean Corpuscular Hemoglobin 31 pg (25-35) Mean Corpuscular Hemoglobin Concent 32 g/dL (31-37) Red Cell Distribution Width 17.3 % (11.5-14.5) Platelet Count 410 x10^3/uL (140-400) Neutrophils (%) (Auto) 77 % (31-73) Lymphocytes (%) (Auto) 14 % (24-48) Monocytes (%) (Auto) 7 % (0-9) Eosinophils (%) (Auto) 1 % (0-3) Basophils (%) (Auto) 1 % (0-3) Neutrophils # (Auto) 6.0 x10^3/uL (1.8-7.7) Lymphocytes # (Auto) 1.1 x10^3/uL (1.0-4.8) Monocytes # (Auto) 0.5 x10^3/uL (0.0-1.1) Eosinophils # (Auto) 0.1 x10^3/uL (0.0-0.7) Basophils # (Auto) 0.1 x10^3/uL (0.0-0.2) Sodium Level 141 mmol/L (136-145) Potassium Level 4.1 mmol/L (3.5-5.1) Chloride Level 104 mmol/L (98-107) Carbon Dioxide Level 23 mmol/L (21-32) Anion Gap 14 (6-14) Blood Urea Nitrogen 46 mg/dL (7-20) Creatinine 6.0 mg/dL (0.6-1.0) Estimated GFR (Cockcroft-Gault) 6.7 BUN/Creatinine Ratio 8 (6-20) Glucose Level 285 mg/dL (70-99) Lactic Acid Level 2.6 mmol/L (0.4-2.0) 1.2 mmol/L (0.4-2.0) Calcium Level 8.9 mg/dL (8.5-10.1) Total Bilirubin 0.2 mg/dL (0.2-1.0) Aspartate Amino Transf (AST/SGOT) 16 U/L (15-37) Alanine Aminotransferase (ALT/SGPT) 7 U/L (14-59) Alkaline Phosphatase 122 U/L (46-116) Total Protein 6.9 g/dL (6.4-8.2) Albumin 1.9 g/dL (3.4-5.0) Albumin/Globulin Ratio 0.4 (1.0-1.7) Urine Collection Type U cath Urine Color Yellow Urine Clarity Turbid Urine pH 7.0 (<5.0-8.0) Urine Specific [place] 1.025 (1.000-1.030) Urine Protein 100 mg/dL (NEG-TRACE) Urine Glucose (UA) Negative mg/dL (NEG) Urine Ketones (Stick) Negative mg/dL (NEG) Urine Blood Moderate (NEG) Urine Nitrite Negative (NEG) Urine Bilirubin Negative (NEG) Urine Urobilinogen Dipstick 0.2 mg/dL (0.2 mg/dL) Urine Leukocyte Esterase Large (NEG) Urine RBC Field obscured /HPF (0-2) Urine WBC Tntc /HPF (0-4) Urine Bacteria Many /HPF (0-FEW) Glucose (Fingerstick) 89 mg/dL (70-99) Test 06/05/21 08:07 Glucose (Fingerstick) 110 mg/dL (70-99) Laboratory Tests Test 06/04/21 12:30 06/04/21 12:45 06/04/21 16:45 06/04/21 17:11 White Blood Count 7.7 x10^3/uL (4.0-11.0) Red Blood Count 2.61 x10^6/uL (3.50-5.40) Hemoglobin 8.1 g/dL (12.0-15.5) Hematocrit 25.5 % (36.0-47.0) Mean Corpuscular Volume 98 fL (79-100) Mean Corpuscular Hemoglobin 31 pg (25-35) Mean Corpuscular Hemoglobin Concent 32 g/dL (31-37) Red Cell Distribution Width 17.3 % (11.5-14.5) Platelet Count 410 x10^3/uL (140-400) Neutrophils (%) (Auto) 77 % (31-73) Lymphocytes (%) (Auto) 14 % (24-48) Monocytes (%) (Auto) 7 % (0-9) Eosinophils (%) (Auto) 1 % (0-3) Basophils (%) (Auto) 1 % (0-3) Neutrophils # (Auto) 6.0 x10^3/uL (1.8-7.7) Lymphocytes # (Auto) 1.1 x10^3/uL (1.0-4.8) Monocytes # (Auto) 0.5 x10^3/uL (0.0-1.1) Eosinophils # (Auto) 0.1 x10^3/uL (0.0-0.7) Basophils # (Auto) 0.1 x10^3/uL (0.0-0.2) Sodium Level 141 mmol/L (136-145) Potassium Level 4.1 mmol/L (3.5-5.1) Chloride Level 104 mmol/L (98-107) Carbon Dioxide Level 23 mmol/L (21-32) Anion Gap 14 (6-14) Blood Urea Nitrogen 46 mg/dL (7-20) Creatinine 6.0 mg/dL (0.6-1.0) Estimated GFR (Cockcroft-Gault) 6.7 BUN/Creatinine Ratio 8 (6-20) Glucose Level 285 mg/dL (70-99) Lactic Acid Level 2.6 mmol/L (0.4-2.0) 1.2 mmol/L (0.4-2.0) Calcium Level 8.9 mg/dL (8.5-10.1) Total Bilirubin 0.2 mg/dL (0.2-1.0) Aspartate Amino Transf (AST/SGOT) 16 U/L (15-37) Alanine Aminotransferase (ALT/SGPT) 7 U/L (14-59) Alkaline Phosphatase 122 U/L (46-116) Total Protein 6.9 g/dL (6.4-8.2) Albumin 1.9 g/dL (3.4-5.0) Albumin/Globulin Ratio 0.4 (1.0-1.7) Urine Collection Type U cath Urine Color Yellow Urine Clarity Turbid Urine pH 7.0 (<5.0-8.0) Urine Specific [place] 1.025 (1.000-1.030) Urine Protein 100 mg/dL (NEG-TRACE) Urine Glucose (UA) Negative mg/dL (NEG) Urine Ketones (Stick) Negative mg/dL (NEG) Urine Blood Moderate (NEG) Urine Nitrite Negative (NEG) Urine Bilirubin Negative (NEG) Urine Urobilinogen Dipstick 0.2 mg/dL (0.2 mg/dL) Urine Leukocyte Esterase Large (NEG) Urine RBC Field obscured /HPF (0-2) Urine WBC Tntc /HPF (0-4) Urine Bacteria Many /HPF (0-FEW) Glucose (Fingerstick) 89 mg/dL (70-99) Test 06/05/21 08:07 Glucose (Fingerstick) 110 mg/dL (70-99) Assessment/Plan Assessment/Plan IMP NON FUNCTIONING HD CATHETER ESRD ANEMIA UTI HTN PLAN WILL HAVE IR PLACE NEW TDC HD TOMORROW ANTIBIOTICS WILL ASK VASCULAR TO SEE FOR AV ACCESS START RETACRIT WILL FOLLOW LORRIE CHAVIS MD Jun 05, 2021 10:50
--- NOTE | 2021-06-05 10:59 | PDOC ---
[employer] PROGRESS NOTE Date of Service DOS: DATE: 06/05/21 TIME: 10:56 Chief Complaint Chief Complaint Dialysis catheter malfunction ESRD on dialysis UTI History of Ronda li CHF Diabetes Hypertension Hyperlipidemia History of Present Illness History of Present Illness 06/06/2019 Patient seen and examined , discussed with RN, chart reviewed She is scheduled to go to IR today for evaluation of her malfunctioning dialysis cath Vitals/I&O Vitals/I&O: Vital Signs Date Time Temp Pulse Resp B/P (MAP) Pulse Ox O2 Delivery O2 Flow Rate FiO2 06/05/21 09:00 86 92/41 06/05/21 08:00 Room Air 06/05/21 07:00 98.3 18 96 98.3 I & O 06/04/21 06/04/21 06/05/21 15:00 23:00 07:00 Intake Total 280 ml Balance 280 ml Physical Exam General: No acute distress Heart: Regular rate Lungs: Clear Abdomen: Normal bowel sounds, Soft, No tenderness Extremities: No cyanosis Skin: No breakdown Labs Labs: Laboratory Tests Test 06/04/21 12:30 06/04/21 12:45 06/04/21 16:45 06/04/21 17:11 White Blood Count 7.7 x10^3/uL (4.0-11.0) Red Blood Count 2.61 x10^6/uL (3.50-5.40) Hemoglobin 8.1 g/dL (12.0-15.5) Hematocrit 25.5 % (36.0-47.0) Mean Corpuscular Volume 98 fL (79-100) Mean Corpuscular Hemoglobin 31 pg (25-35) Mean Corpuscular Hemoglobin Concent 32 g/dL (31-37) Red Cell Distribution Width 17.3 % (11.5-14.5) Platelet Count 410 x10^3/uL (140-400) Neutrophils (%) (Auto) 77 % (31-73) Lymphocytes (%) (Auto) 14 % (24-48) Monocytes (%) (Auto) 7 % (0-9) Eosinophils (%) (Auto) 1 % (0-3) Basophils (%) (Auto) 1 % (0-3) Neutrophils # (Auto) 6.0 x10^3/uL (1.8-7.7) Lymphocytes # (Auto) 1.1 x10^3/uL (1.0-4.8) Monocytes # (Auto) 0.5 x10^3/uL (0.0-1.1) Eosinophils # (Auto) 0.1 x10^3/uL (0.0-0.7) Basophils # (Auto) 0.1 x10^3/uL (0.0-0.2) Sodium Level 141 mmol/L (136-145) Potassium Level 4.1 mmol/L (3.5-5.1) Chloride Level 104 mmol/L (98-107) Carbon Dioxide Level 23 mmol/L (21-32) Anion Gap 14 (6-14) Blood Urea Nitrogen 46 mg/dL (7-20) Creatinine 6.0 mg/dL (0.6-1.0) Estimated GFR (Cockcroft-Gault) 6.7 BUN/Creatinine Ratio 8 (6-20) Glucose Level 285 mg/dL (70-99) Lactic Acid Level 2.6 mmol/L (0.4-2.0) 1.2 mmol/L (0.4-2.0) Calcium Level 8.9 mg/dL (8.5-10.1) Total Bilirubin 0.2 mg/dL (0.2-1.0) Aspartate Amino Transf (AST/SGOT) 16 U/L (15-37) Alanine Aminotransferase (ALT/SGPT) 7 U/L (14-59) Alkaline Phosphatase 122 U/L (46-116) Total Protein 6.9 g/dL (6.4-8.2) Albumin 1.9 g/dL (3.4-5.0) Albumin/Globulin Ratio 0.4 (1.0-1.7) Urine Collection Type U cath Urine Color Yellow Urine Clarity Turbid Urine pH 7.0 (<5.0-8.0) Urine Specific [place] 1.025 (1.000-1.030) Urine Protein 100 mg/dL (NEG-TRACE) Urine Glucose (UA) Negative mg/dL (NEG) Urine Ketones (Stick) Negative mg/dL (NEG) Urine Blood Moderate (NEG) Urine Nitrite Negative (NEG) Urine Bilirubin Negative (NEG) Urine Urobilinogen Dipstick 0.2 mg/dL (0.2 mg/dL) Urine Leukocyte Esterase Large (NEG) Urine RBC Field obscured /HPF (0-2) Urine WBC Tntc /HPF (0-4) Urine Bacteria Many /HPF (0-FEW) Glucose (Fingerstick) 89 mg/dL (70-99) Test 06/05/21 08:07 Glucose (Fingerstick) 110 mg/dL (70-99) Assessment and Plan Assessmemt and Plan Problems Medical Problems: (1) Chronic kidney disease with end stage renal failure on dialysis Status: Acute (2) Encounter for dialysis catheter care Status: Acut Dialysis catheter malfunction ESRD on dialysis UTI History of A. guillermo CHF Diabetes Hypertension Hyperlipidemia Plan She is going to IR for dialysis catheter evaluation and treatment After that continue dialysis per nephrology Home meds DVT prophylaxis Full code Trend labs Encourage p.o. intake Continue Rocephin Comment Review of Relevant I have reviewed the following items edis (where applicable) has been applied. Medications: Current Medications Medications (Trade) Dose Ordered Sig/Angy Route PRN Reason Start Time Stop Time Status Last Admin Dose Admin Ceftriaxone Sodium (Rocephin) 1 gm 1X ONCE IVP 06/04/21 14:15 06/04/21 14:16 DC 06/04/21 14:16 Sodium Chloride 500 ml @ 500 mls/hr 1X ONCE IV 06/04/21 14:15 06/04/21 15:14 DC 06/04/21 14:15 Senna/Docusate Sodium (Senna Plus) 1 tab BID PO 06/04/21 21:00 06/04/21 21:53 Heparin Sodium (Porcine) (Heparin Sodium) 5,000 unit Q8HRS SQ 06/04/21 22:00 06/05/21 05:51 Atorvastatin Calcium (Lipitor) 40 mg QHS PO 06/04/21 21:00 06/04/21 21:54 Ferrous Sulfate (Feosol) 325 mg BIDWMEALS PO 06/04/21 21:00 06/04/21 21:00 Lactobacillus Rhamnosus (Culturelle) 1 cap BID PO 06/04/21 21:00 06/04/21 21:53 Nystatin (Nystop) 1 melissa QID TP 06/04/21 21:00 06/04/21 21:54 Justifications for Admission Other Justification NARCISO SHIELDS III DO Jun 05, 2021 10:59
--- NOTE | 2021-06-05 11:22 | NUR ---
SW following. Discussed with RN, pt from home with sister, room air, renal diet. Nephrology following. Pt does dialysis at [facility]. [facility] will continue to follow. Addendum: 06/05/21 at 1421 by CALOS CROW Pt current with [facility]. Recently discharged from [facility].
[2021-06-05] MEDS ORDERED: LIDOCAINE 1%/EPI 1:100,000 20 ML VIAL. ONE (13:30)
[2021-06-05] MEDS ORDERED: MIDAZOLAM HCL/PF 2 MG/2 ML VIAL. ONE (14:04)
[2021-06-05] MEDS ORDERED: fentaNYL PF VIAL 100 MCG/2 ML VIAL ONE (14:05)
[2021-06-05] MEDS ORDERED: LIDOCAINE 1%/EPI 1:100,000 20 ML VIAL. INJ ONE (14:30)
[2021-06-05] MEDS ORDERED: fentaNYL PF VIAL 100 MCG/2 ML VIAL IV ONE (14:30)
[2021-06-05] MEDS ORDERED: MIDAZOLAM HCL/PF 2 MG/2 ML VIAL. IV ONE (14:30)
--- NOTE | 2021-06-05 14:55 | NUR ---
Patient has return from IR. Pt alert and oriented. Dialysis dressing dry and intact, no shadowing apparent. No c/o pain at this time. VSS. Food tray ordered for patient, fresh water at bedside. No visitors with patient at this time.
--- NOTE | 2021-06-05 14:56 | RAD ---
US VENOUS MAPPING BILAT Clinical Indication: Reason: preop for dialysis access / Spl. Instructions: / History: Comparison: None. TECHNIQUE: Real-time ultrasound imaging of the superficial veins of the bilateral upper extremities i s performed with and without compression and augmentation maneuvers. Findings: The bilateral basilic and cephalic veins are patent. The right cephalic vein has diameter of 3.7 mm proximal and 1.8 mm distal. The right basilic vein has diameter 3.5 mm proximal and 1.4 mm distal. The left basilic vein has diameter 4.9 mm proximally and 1.3 mm distal. The left cephalic vein has diameter 3.9 mm proximal and 2.8 mm distal. Please refer to worksheet for additional details. IMPRESSION: Bilateral upper extremity superficial veins are patent. Electronically signed by: Evan Del Rosario MD (06/05/2021 2:53 PM) [id number]
--- NOTE | 2021-06-05 15:14 | RAD ---
Placement of right internal jugular tunnel hemodialysis catheter 06/05/2021 INDICATION: Nonfunctional catheter Consent: The procedure was explained in its entirety to the patient or the patients designated repres entative by a member of the treatment team, including a discussion of the risks, benefits and commonl y accepted alternatives to the procedure, as well as the expected consequences of no therapy whatsoev er. Discussion of the risks included, but was not limited to, those that are most frequent and thos e that are rare but possibly severe or life-threatening, as well as the possibility of unforeseen com plications. The right neck and chest including the pre-existing catheter were prepped and draped using maximum st erile technique, including the use of: Current guideline approved cutaneous antisepsis, a large steri le sheet to establish a sterile field. Additionally the capacitor pack press operator wore a hat, mask, sterile gloves, a sterile gown during the procedure as well as practiced acceptable hand hygiene prior to placing the l ine. Lidocaine was used for local anesthesia. Timeout procedure was performed. Fluoroscopic evaluation demonstrates a right internal jugular tunnel hemodialysis catheter with tip in right atrium. A guidewire was advanced through this catheter into the IVC. The catheter was removed. Over the wire a new 19 cm tip to cuff palindrome hemodialysis cath eter was advanced and deployed such that the catheter tip was in the mid right atrium with the patien t supine. The new catheter was found to flush and aspirate normally. The catheter was secured in plac e. Sterile dressings were applied. No immediate complications were identified. Sedation: The procedure was performed under conscious sedation including continuous cardiopulmonary m onitoring via a dedicated sedation nurse. [id number] sedation time: 30 minutes Total fluoroscopy time 2.1 minutes Dose area product 4 diamond centimeters squared IMPRESSION: Replacement of right internal jugular tunneled hemodialysis catheter as described Electronically signed by: Jitendra Mckeon MD (06/05/2021 3:12 PM) [id number]
[2021-06-05] MEDS: cefTRIAXone IV Push 1 GM VIAL. IVP SCH (15:48)
--- NOTE | 2021-06-05 17:09 | NUR ---
Patient does not want to use nystatin powder at this time as she does not currently have any redness/irritation below breasts or panis.
[2021-06-05] MEDS: INSULIN GLARGINE SYRINGE. SQ SCH (21:00)
[2021-06-05] MEDS: ATORVASTATIN CALCIUM 40 MG TABLET. PO SCH (21:16)
[2021-06-06] VITALS (9 sets, daily range): BP systolic 106–142; BP diastolic 43–66
[2021-06-06] MEDS: HEPARIN for SUB-Q USE 5,000 UNIT/ML VIAL. SQ SCH ×3 (06:03→21:15)
[2021-06-06 07:31] LABS: HEMATOCRIT 20.6 % (36.0-47.0); RED BLOOD COUNT 2.11 x10^6/uL (3.50-5.40); RED CELL DISTRIBUTION WIDTH 17.3 % (11.5-14.5); WHITE BLOOD COUNT 4.3 x10^3/uL (4.0-11.0)
[2021-06-06] MEDS: LACTOBACILLUS RHAMNOSUS GG 1 CAPSULE. PO SCH ×2 (07:33→21:16)
[2021-06-06] MEDS: FERROUS SULFATE 325 MG TABLET. PO SCH ×2 (07:33→17:00)
[2021-06-06] MEDS: PANTOPRAZOLE 40 MG TABLET.DR. PO SCH (07:33)
[2021-06-06] MEDS: ASPIRIN CHEWABLE 81 MG TABLET. PO SCH (07:34)
[2021-06-06] MEDS: MIDODRINE 5 MG TABLET PO SCH ×3 (07:34→18:00)
[2021-06-06] MEDS: INSULIN LISPRO 300 UNITS/3 ML VIAL. SQ SCH ×6 (07:35→17:00)
[2021-06-06] MEDS: SENNOSIDES/DOCUSATE 8.6/50MG TABLET. PO SCH ×2 (07:35→21:16)
[2021-06-06 07:38] LABS: HEMOGLOBIN 6.6 g/dL (12.0-15.5)
[2021-06-06 07:44] LABS: CALCIUM 8.5 mg/dL (8.5-10.1); CREATININE 5.2 mg/dL (0.6-1.0); POTASSIUM 4.2 mmol/L (3.5-5.1)
--- NOTE | 2021-06-06 08:02 | NUR ---
meal dose insulin not given as patient not going to eat breakfast
[2021-06-06] MEDS ORDERED: IV NORMAL SALINE 1000ML BAG 1,000 ML IV PRN ×2 (08:30)
[2021-06-06] MEDS ORDERED: ALBUMIN HUMAN 25% 200 ML IV PRN (08:30)
[2021-06-06] MEDS ORDERED: DIALYSIS PATIENT. MC PRN ×2 (08:30)
--- NOTE | 2021-06-06 08:59 | PDOC ---
[employer] PROGRESS NOTE Date of Service DOS: DATE: 06/06/21 TIME: 08:57 Chief Complaint Chief Complaint Dialysis catheter malfunction ESRD on dialysis UTI History of A. fib CHF Diabetes Hypertension Hyperlipidemia History of Present Illness History of Present Illness 06/06/2021 Patient seen and examined Discussed with Dr. Phil Villarreal would like to put a fistula in the left arm perhaps in a week or 2 after the UTI has resolved Appreciate Dr. Villarreal input 06/06/2019 Patient seen and examined , discussed with RN, chart reviewed She is scheduled to go to IR today for evaluation of her malfunctioning dialysis cath Vitals/I&O Vitals/I&O: Vital Signs Date Time Temp Pulse Resp B/P (MAP) Pulse Ox O2 Delivery O2 Flow Rate FiO2 06/06/21 07:34 80 107/54 06/06/21 07:00 97.5 17 98 97.5 06/06/21 03:07 Room Air 06/05/21 14:57 2.0 I & O 06/05/21 06/05/21 06/06/21 15:00 23:00 07:00 Intake Total 100 ml Balance 100 ml Physical Exam General: No acute distress Heart: Regular rate Lungs: Clear Abdomen: Normal bowel sounds, Soft, No tenderness Extremities: No cyanosis Skin: No breakdown Labs Labs: Laboratory Tests Test 06/05/21 11:20 06/05/21 17:16 06/05/21 18:27 06/06/21 06:43 Glucose (Fingerstick) 126 mg/dL (70-99) 195 mg/dL (70-99) 205 mg/dL (70-99) White Blood Count 4.3 x10^3/uL (4.0-11.0) Red Blood Count 2.11 x10^6/uL (3.50-5.40) Hemoglobin 6.6 g/dL (12.0-15.5) Hematocrit 20.6 % (36.0-47.0) Mean Corpuscular Volume 98 fL (79-100) Mean Corpuscular Hemoglobin 31 pg (25-35) Mean Corpuscular Hemoglobin Concent 32 g/dL (31-37) Red Cell Distribution Width 17.3 % (11.5-14.5) Platelet Count 346 x10^3/uL (140-400) Sodium Level 140 mmol/L (136-145) Potassium Level 4.2 mmol/L (3.5-5.1) Chloride Level 106 mmol/L (98-107) Carbon Dioxide Level 22 mmol/L (21-32) Anion Gap 12 (6-14) Blood Urea Nitrogen 44 mg/dL (7-20) Creatinine 5.2 mg/dL (0.6-1.0) Estimated GFR (Cockcroft-Gault) 8.0 Glucose Level 97 mg/dL (70-99) Calcium Level 8.5 mg/dL (8.5-10.1) Test 06/06/21 07:32 Glucose (Fingerstick) 89 mg/dL (70-99) Assessment and Plan Assessmemt and Plan Problems Medical Problems: (1) Chronic kidney disease with end stage renal failure on dialysis Status: Acute (2) Encounter for dialysis catheter care Status: Acute Dialysis catheter malfunction ESRD on dialysis UTI History of A. fib CHF Diabetes Hypertension Hyperlipidemia Plan Continue dialysis Dr. Villarreal would like to put a left arm AV graft in in a week or 2 after the UTI has resolved For now continue the following: Antibiotics Home meds DVT prophylaxis Full code Trend labs Encourage p.o. intake Continue Rocephin Discharge disposition pending Comment Review of Relevant I have reviewed the following items edis (where applicable) has been applied. Medications: Current Medications Medications (Trade) Dose Ordered Sig/Angy Route PRN Reason Start Time Stop Time Status Last Admin Dose Admin Aspirin (Aspirin Chewable) 81 mg DAILY PO 06/05/21 09:00 06/06/21 07:34 Ceftriaxone Sodium (Rocephin) 1 gm Q24H IVP 06/05/21 14:00 06/05/21 15:48 Midazolam HCl (Versed) 2 mg 1X ONCE IV 06/05/21 14:30 06/05/21 14:33 DC 06/05/21 14:15 Fentanyl Citrate (Fentanyl 2ml Vial) 50 mcg 1X ONCE IV 06/05/21 14:30 06/05/21 14:33 DC 06/05/21 14:12 Lidocaine/ Epinephrine (LIDOCAINE 1%-EPI 1:100,000 Multi-Dose) 20 ml 1X ONCE INJ 06/05/21 14:30 06/05/21 14:33 DC 06/05/21 14:30 Cefazolin Sodium/ Dextrose 50 ml @ 100 mls/hr 1X ONCE IV 06/05/21 14:30 06/05/21 14:59 DC 06/05/21 14:10 Justifications for Admission Other Justification NARCISO SHIELDS III DO Jun 06, 2021 08:58
[2021-06-06] MEDS: NYSTATIN TOPICAL POWDER 15GM BOTTLE. TP SCH ×4 (09:00→21:27)
--- NOTE | 2021-06-06 09:47 | PDOC2 ---
CONSULT Date of Consult Date of Consult DATE: 06/06/21 TIME: 09:39 Reason for Consult Reason for Consult: Need for dialysis access History of Present Illness Reason for Visit: The patient is an 81-year-old female with end-stage renal disease on chronic hemodialysis through a right chest permacath. She is right arm dominant. She prefers access in her left arm if possible. She has no pacemakers or defibrillators. She has been using her permacath for dialysis however it has had technical issues and then replaced. She has had no arm access procedures or surgeries in the past. She reports no weakness or pain in her arms or hands. She currently has an IV in her left lateral antecubital location. Vein mapping was performed of her bilateral upper extremities which I reviewed, the left arm shows adequate cephalic vein for a brachial artery to cephalic vein fistula. She is able to ambulate. She reports no significant pain in her legs. She does have chronic swelling. Past Medical History Cardiovascular: AFIB, HTN, Hyperlipidemia, Other Pulmonary: Pulmonary embolus, Other CENTRAL NERVOUS SYSTEM: Periperal neuropathy, Other GI: GERD Heme/Onc: Anemia NOS Hepatobiliary: No pertinent hx Psych: No pertinent hx Musculoskeletal: Osteoarthritis Rheumatologic: Gout Infectious disease: No pertinent hx Renal/: Chronic renal insuff, Acute renal failure Endocrine: Diabetes Past Surgical History Past Surgical History: Tonsillectomy Family History Family History: Hypertension Social History ALCOHOL: none Drugs: None Lives: Alone Current Problem List Problem List Problems Medical Problems: (1) Chronic kidney disease with end stage renal failure on dialysis Status: Acute (2) Encounter for dialysis catheter care Status: Acute Current Medications Current Medications Current Medications Ceftriaxone Sodium (Rocephin) 1 gm 1X ONCE IVP Last administered on 06/04/21at 14:16; Start 06/04/21 at 14:15; Stop 06/04/21 at 14:16; Status DC Sodium Chloride 500 ml @ 500 mls/hr 1X ONCE IV Last administered on 06/04/21at 14:15; Start 06/04/21 at 14:15; Stop 06/04/21 at 15:14; Status DC Ondansetron HCl (Zofran) 4 mg PRN Q6HRS PRN IVP NAUSEA/VOMITING Last administered on 06/05/21at 21:33; Start 06/04/21 at 15:30 Calcium Carbonate/ Glycine (Tums) 500 mg PRN Q3HRS PRN PO UPSET STOMACH Last administered on 06/05/21at 21:17; Start 06/04/21 at 15:30 Info (Non-Icu Electrolyte Protocol) 1 ea PRN DAILY PRN MC SEE COMMENTS; Start 06/04/21 at 15:30 Acetaminophen (Tylenol) 650 mg PRN Q6HRS PRN PO Headaches, Temp > 101.5F; Start 06/04/21 at 15:30; Status Cancel Senna/Docusate Sodium (Senna Plus) 1 tab BID PO Last administered on 06/06/21at 07:35; Start 06/04/21 at 21:00 Heparin Sodium (Porcine) (Heparin Sodium) 5,000 unit Q8HRS SQ Last administered on 06/06/21at 06:03; Start 06/04/21 at 22:00 Acetaminophen (Tylenol) 325 mg PRN QID PRN PO PAIN; Start 06/04/21 at 18:30 Amlodipine Besylate (Norvasc) 5 mg DAILY PO ; Start 06/05/21 at 09:00; Stop 06/05/21 at 14:34; Status DC Aspirin (Aspirin Chewable) 81 mg DAILY PO Last administered on 06/06/21at 07:34; Start 06/05/21 at 09:00 Atorvastatin Calcium (Lipitor) 40 mg QHS PO Last administered on 06/05/21at 21:16; Start 06/04/21 at 21:00 Ergocalciferol (Vitamin D2) 50,000 unit WEEKLY PO ; Start 06/11/21 at 09:00 Ferrous Sulfate (Feosol) 325 mg BIDWMEALS PO Last administered on 06/06/21at 07:33; Start 06/04/21 at 21:00 Furosemide (Lasix) 40 mg DAILY PO ; Start 06/05/21 at 09:00 Insulin Glargine (Lantus Syringe) 8 unit QHS SQ ; Start 06/04/21 at 21:00 Lactobacillus Rhamnosus (Culturelle) 1 cap BID PO Last administered on 06/06/21at 07:33; Start 06/04/21 at 21:00 Midodrine (Proamatine) 5 mg [id number] PO Last administered on 06/06/21 07:34; Start 06/05/21 at 07:00 Nystatin (Nystop) 1 laurel QID TP Last administered on 06/05/21at 21:00; Start 06/04/21 at 21:00 Pantoprazole Sodium (Protonix) 40 mg DAILYAC PO Last administered on 06/06/21at 07:33; Start 06/05/21 at 07:30 Polyethylene Glycol (miraLAX PACKET) 17 gm DAILY PRN PO CONSTIPATION; Start 06/04/21 at 18:30 Insulin Human Lispro (HumaLOG) 5 units TIDWMEALS SQ Last administered on 06/05/21at 18:25; Start 06/04/21 at 20:00 Acetaminophen (Tylenol) 650 mg PRN QID PRN PO PAIN; Start 06/04/21 at 18:45 Ceftriaxone Sodium (Rocephin) 1 gm Q24H IVP Last administered on 06/05/21at 15:48; Start 06/05/21 at 14:00 Insulin Human Lispro (HumaLOG) 0-7 UNITS TIDWMEALS SQ Last administered on 06/05/21at 18:24; Start 06/05/21 at 08:00 Dextrose (Dextrose 50%-Water Syringe) 12.5 gm PRN Q15MIN PRN IV SEE COMMENTS; Start 06/05/21 at 00:45 Dextrose (Iv Dextrose 5%) 250 ml PRN Q15MIN PRN IV SEE COMMENTS; Start 06/05/21 at 00:45 Epoetin Romulo-epbx (RETACRIT for ESRD PTS) 10,000 unit MoWeFr@2100 SQ ; Start 06/06/21 at 21:00 Lidocaine/ Epinephrine (LIDOCAINE 1%-EPI 1:100,000 Multi-Dose) 20 ml STK-MED ONC E .ROUTE ; Start 06/05/21 at 13:30; Stop 06/05/21 at 13:30; Status DC Midazolam HCl (Versed) 2 mg STK-MED ONCE .ROUTE ; Start 06/05/21 at 14:04; Stop 06/05/21 at 14:05; Status DC Fentanyl Citrate (Fentanyl 2ml Vial) 100 mcg STK-MED ONCE .ROUTE ; Start 06/05/21 at 14:05; Stop 06/05/21 at 14:05; Status DC Cefazolin Sodium/ Dextrose 50 ml @ As Directed STK-MED ONCE IV ; Start 06/05/21 at 14:05; Stop 06/05/21 at 14:05; Status DC Midazolam HCl (Versed) 2 mg 1X ONCE IV Last administered on 06/05/21at 14:15; Start 06/05/21 at 14:30; Stop 06/05/21 at 14:33; Status DC Fentanyl Citrate (Fentanyl 2ml Vial) 50 mcg 1X ONCE IV Last administered on at 14:12; Start 06/05/21 at 14:30; Stop 06/05/21 at 14:33; Status DC Lidocaine/ Epinephrine (LIDOCAINE 1%-EPI 1:100,000 Multi-Dose) 20 ml 1X ONCE INJ Last administered on 06/05/21at 14:30; Start 06/05/21 at 14:30; Stop 06/05/21 at 14:33; Status DC Cefazolin Sodium/ Dextrose 50 ml @ 100 mls/hr 1X ONCE IV Last administered on 06/05/21at 14:10; Start 06/05/21 at 14:30; Stop 06/05/21 at 14:59; Status DC Sodium Chloride 1,000 ml @ 1,000 mls/hr Q1H PRN IV hypotension; Start 06/06/21 at 08:30; Stop 06/06/21 at 14:29 Albumin Human 200 ml @ 200 mls/hr 1X PRN PRN IV Hypotension; Start 06/06/21 at 08:30; Stop 06/06/21 at 14:29 Sodium Chloride 1,000 ml @ 400 mls/hr Q2H30M PRN IV PATENCY; Start 06/06/21 at 08:30; Stop 06/06/21 at 20:29 Info (PHARMACY MONITORING -- do not chart) 1 each PRN DAILY PRN MC SEE COMMENTS; Start 06/06/21 at 08:30; Status UNV Info (PHARMACY MONITORING -- do not chart) 1 each PRN DAILY PRN MC SEE COMMENTS; Start 06/06/21 at 08:30 Active Scripts Active Midodrine Hcl 2.5 Mg Tablet 5 Mg PO [id number] 30 Days Novolog (Insulin Aspart) 100 Unit/1 Ml Cartridge 5 Unit SQ TIDAC 30 Days Lantus (Insulin Glargine,Hum.rec.anlog) 100 Unit/1 Ml Vial 8 Unit SQ QHS 30 Days Amlodipine Besylate 5 Mg Tablet 5 Mg PO DAILY 60 Days Polyethylene Glycol 3350 17 Gm Powd.pack 17 Gm PO DAILY PRN 30 Days Aspirin 81 Mg Tab.chew 1 Tab PO DAILY Nystop (Nystatin) 60 Gm Powder 1 Laurel TP QID 15 Days Culturelle (Lactobacillus Rhamnosus Gg) 1 Each Cap.sprink 1 Cap PO BID 30 Days Feosol (Ferrous Sulfate) 325 Mg Tablet 325 Mg PO BIDWMEALS 30 Days Tylenol (Acetaminophen) 325 Mg Tablet 1-2 Tab PO QID PRN Reported Furosemide 40 Mg Tablet 1 Tab PO DAILY Vitamin D2 (Ergocalciferol (Vitamin D2)) 50,000 Unit Capsule 1 Cap PO WEEKLY Pantoprazole Sodium (Pantoprazole Sodium) 40 Mg Tablet.dr 1 Tab PO DAILY Atorvastatin Calcium 40 Mg Tablet 1 Tab PO QHS Allergies Allergies: Coded Allergies: No Known Drug Allergies (Unverified , 04/05/21) Physical Exam General: Alert, Oriented X3 Extremities: Other (Bilateral lower extremities are warm, chronic swelling in the lower legs, palpable dorsalis pedis pulses bilaterally with no tissue breakdown in her feet) Skin: Other (Right chest permacath in place) Neuro: Normal speech Psych/Mental Status: Mental status NL MUSCULOSKELETAL: Other (The bilateral upper extremities are warm, no swelling in the arms, she does have significant obesity especially in her upper arms. The left arm has a lateral antecubital IV in place. She has palpable bilateral radial pulses, her left brachial artery pulse is intact and normal. She has intact motor and sensory function in her hands with 5 out of 5 strength. There is no tissue breakdown in her hands.) Vitals VITALS Vital Signs Date Time Temp Pulse Resp B/P (MAP) Pulse Ox O2 Delivery O2 Flow Rate FiO2 06/06/21 07:34 80 107/54 06/06/21 07:00 97.5 17 98 97.5 06/06/21 03:07 Room Air 06/05/21 14:57 2.0 Labs Labs Laboratory Tests Test 06/04/21 12:30 06/04/21 12:45 06/04/21 16:45 06/04/21 17:11 White Blood Count 7.7 x10^3/uL (4.0-11.0) Red Blood Count 2.61 x10^6/uL (3.50-5.40) Hemoglobin 8.1 g/dL (12.0-15.5) Hematocrit 25.5 % (36.0-47.0) Mean Corpuscular Volume 98 fL (79-100) Mean Corpuscular Hemoglobin 31 pg (25-35) Mean Corpuscular Hemoglobin Concent 32 g/dL (31-37) Red Cell Distribution Width 17.3 % (11.5-14.5) Platelet Count 410 x10^3/uL (140-400) Neutrophils (%) (Auto) 77 % (31-73) Lymphocytes (%) (Auto) 14 % (24-48) Monocytes (%) (Auto) 7 % (0-9) Eosinophils (%) (Auto) 1 % (0-3) Basophils (%) (Auto) 1 % (0-3) Neutrophils # (Auto) 6.0 x10^3/uL (1.8-7.7) Lymphocytes # (Auto) 1.1 x10^3/uL (1.0-4.8) Monocytes # (Auto) 0.5 x10^3/uL (0.0-1.1) Eosinophils # (Auto) 0.1 x10^3/uL (0.0-0.7) Basophils # (Auto) 0.1 x10^3/uL (0.0-0.2) Sodium Level 141 mmol/L (136-145) Potassium Level 4.1 mmol/L (3.5-5.1) Chloride Level 104 mmol/L (98-107) Carbon Dioxide Level 23 mmol/L (21-32) Anion Gap 14 (6-14) Blood Urea Nitrogen 46 mg/dL (7-20) Creatinine 6.0 mg/dL (0.6-1.0) Estimated GFR (Cockcroft-Gault) 6.7 BUN/Creatinine Ratio 8 (6-20) Glucose Level 285 mg/dL (70-99) Lactic Acid Level 2.6 mmol/L (0.4-2.0) 1.2 mmol/L (0.4-2.0) Calcium Level 8.9 mg/dL (8.5-10.1) Total Bilirubin 0.2 mg/dL (0.2-1.0) Aspartate Amino Transf (AST/SGOT) 16 U/L (15-37) Alanine Aminotransferase (ALT/SGPT) 7 U/L (14-59) Alkaline Phosphatase 122 U/L (46-116) Total Protein 6.9 g/dL (6.4-8.2) Albumin 1.9 g/dL (3.4-5.0) Albumin/Globulin Ratio 0.4 (1.0-1.7) Urine Collection Type U cath Urine Color Yellow Urine Clarity Turbid Urine pH 7.0 (<5.0-8.0) Urine Specific [place] 1.025 (1.000-1.030) Urine Protein 100 mg/dL (NEG-TRACE) Urine Glucose (UA) Negative mg/dL (NEG) Urine Ketones (Stick) Negative mg/dL (NEG) Urine Blood Moderate (NEG) Urine Nitrite Negative (NEG) Urine Bilirubin Negative (NEG) Urine Urobilinogen Dipstick 0.2 mg/dL (0.2 mg/dL) Urine Leukocyte Esterase Large (NEG) Urine RBC Field obscured /HPF (0-2) Urine WBC Tntc /HPF (0-4) Urine Bacteria Many /HPF (0-FEW) Glucose (Fingerstick) 89 mg/dL (70-99) Test 06/05/21 08:07 06/05/21 11:20 06/05/21 17:16 06/05/21 18:27 Glucose (Fingerstick) 110 mg/dL (70-99) 126 mg/dL (70-99) 195 mg/dL (70-99) 205 mg/dL (70-99) Test 06/06/21 06:43 06/06/21 07:32 White Blood Count 4.3 x10^3/uL (4.0-11.0) Red Blood Count 2.11 x10^6/uL (3.50-5.40) Hemoglobin 6.6 g/dL (12.0-15.5) Hematocrit 20.6 % (36.0-47.0) Mean Corpuscular Volume 98 fL (79-100) Mean Corpuscular Hemoglobin 31 pg (25-35) Mean Corpuscular Hemoglobin Concent 32 g/dL (31-37) Red Cell Distribution Width 17.3 % (11.5-14.5) Platelet Count 346 x10^3/uL (140-400) Sodium Level 140 mmol/L (136-145) Potassium Level 4.2 mmol/L (3.5-5.1) Chloride Level 106 mmol/L (98-107) Carbon Dioxide Level 22 mmol/L (21-32) Anion Gap 12 (6-14) Blood Urea Nitrogen 44 mg/dL (7-20) Creatinine 5.2 mg/dL (0.6-1.0) Estimated GFR (Cockcroft-Gault) 8.0 Glucose Level 97 mg/dL (70-99) Calcium Level 8.5 mg/dL (8.5-10.1) Glucose (Fingerstick) 89 mg/dL (70-99) Laboratory Tests Test 06/05/21 11:20 06/05/21 17:16 06/05/21 18:27 06/06/21 06:43 Glucose (Fingerstick) 126 mg/dL (70-99) 195 mg/dL (70-99) 205 mg/dL (70-99) White Blood Count 4.3 x10^3/uL (4.0-11.0) Red Blood Count 2.11 x10^6/uL (3.50-5.40) Hemoglobin 6.6 g/dL (12.0-15.5) Hematocrit 20.6 % (36.0-47.0) Mean Corpuscular Volume 98 fL (79-100) Mean Corpuscular Hemoglobin 31 pg (25-35) Mean Corpuscular Hemoglobin Concent 32 g/dL (31-37) Red Cell Distribution Width 17.3 % (11.5-14.5) Platelet Count 346 x10^3/uL (140-400) Sodium Level 140 mmol/L (136-145) Potassium Level 4.2 mmol/L (3.5-5.1) Chloride Level 106 mmol/L (98-107) Carbon Dioxide Level 22 mmol/L (21-32) Anion Gap 12 (6-14) Blood Urea Nitrogen 44 mg/dL (7-20) Creatinine 5.2 mg/dL (0.6-1.0) Estimated GFR (Cockcroft-Gault) 8.0 Glucose Level 97 mg/dL (70-99) Calcium Level 8.5 mg/dL (8.5-10.1) Test 06/06/21 07:32 Glucose (Fingerstick) 89 mg/dL (70-99) Assessment/Plan Assessment/Plan 81-year-old female with end-stage renal disease on chronic hemodialysis. She is currently receiving dialysis through a right chest permacath. She is right arm dominant. Vein mapping was reviewed. I recommend a left arm brachial artery to cephalic vein fistula. Her surgery will be scheduled this Friday. She is anemic with a hemoglobin of 6.6, she will need transfusion prior to surgery. LISSETTE AGUIRRE MD Jun 06, 2021 09:46
--- NOTE | 2021-06-06 10:37 | PDOC ---
Renal-Progress Notes Subjective Notes Notes NO NEW COMPLAINTS EXCEPT WEAKNESS History of Present Illness Hx of present illness STABLE Vitals Vitals Vital Signs Date Time Temp Pulse Resp B/P (MAP) Pulse Ox O2 Delivery O2 Flow Rate FiO2 06/06/21 07:34 80 107/54 06/06/21 07:00 97.5 17 98 97.5 06/06/21 03:07 Room Air 06/05/21 14:57 2.0 Weight Weight [ ] I.O. Intake and Output Intake and Output 06/06/21 07:00 Intake Total 100 ml Balance 100 ml Intake Oral 100 ml Labs Labs Laboratory Tests Test 06/05/21 11:20 06/05/21 17:16 06/05/21 18:27 06/06/21 06:43 Glucose (Fingerstick) 126 mg/dL (70-99) 195 mg/dL (70-99) 205 mg/dL (70-99) White Blood Count 4.3 x10^3/uL (4.0-11.0) Red Blood Count 2.11 x10^6/uL (3.50-5.40) Hemoglobin 6.6 g/dL (12.0-15.5) Hematocrit 20.6 % (36.0-47.0) Mean Corpuscular Volume 98 fL (79-100) Mean Corpuscular Hemoglobin 31 pg (25-35) Mean Corpuscular Hemoglobin Concent 32 g/dL (31-37) Red Cell Distribution Width 17.3 % (11.5-14.5) Platelet Count 346 x10^3/uL (140-400) Sodium Level 140 mmol/L (136-145) Potassium Level 4.2 mmol/L (3.5-5.1) Chloride Level 106 mmol/L (98-107) Carbon Dioxide Level 22 mmol/L (21-32) Anion Gap 12 (6-14) Blood Urea Nitrogen 44 mg/dL (7-20) Creatinine 5.2 mg/dL (0.6-1.0) Estimated GFR (Cockcroft-Gault) 8.0 Glucose Level 97 mg/dL (70-99) Calcium Level 8.5 mg/dL (8.5-10.1) Test 06/06/21 07:32 Glucose (Fingerstick) 89 mg/dL (70-99) Micro Micro Microbiology 06/04/21 Blood Culture - Preliminary, Resulted NO GROWTH AFTER 1 DAY 06/04/21 Urine Culture - Final, Complete Escherichia Coli Esbl Review of Systems Constitutional: yes: weakness, alert, oriented Ears/Nose/Throat: Yes: no symptom reported Eyes: Yes: no symptom reported Pulmonary: Yes no symptom reported Cardiovascular: Yes no symptom reported Gastrointestional: Yes: no symptom reported Genitourinary: Yes: no symptom reported Musculoskeletal: Yes: no symptom reported Skin: Yes no symptom reported Psychiatric/Neurological: Yes: no symptom reported Endocrine: Yes: no symptom reported Physical Exam General Appearance: no apparent distress Skin: warm Respiratory: bilateral CTA Heart: S1S2 Abdomen: soft, bowel sounds present Genitourinary: bladder flat Extremities: pulses present Neurology: alert, oriented Assessment Assessment IMP S/P NEW TUNNELED HD CATHETER-STILL HAS POOR FLOW ESRD ANEMIA UTI HTN PLAN HD TODAY UF MINIMUM PRBC TODAY ANTIBIOTICS CONT RETACRIT CHECK IRON STORES AVF PLACEMENT FRIDAY WILL FOLLOW LORRIE CHAVIS MD Jun 06, 2021 10:37
[2021-06-06] MEDS: FUROSEMIDE 40 MG TABLET. PO SCH (13:55)
[2021-06-06] MEDS: cefTRIAXone IV Push 1 GM VIAL. IVP SCH (15:54)
[2021-06-06] MEDS: AMOXICILLIN/K CLAV 500/125MG TABLET. PO SCH (17:00)
[2021-06-06] MEDS: INSULIN GLARGINE SYRINGE. SQ SCH (21:16)
[2021-06-06] MEDS: ATORVASTATIN CALCIUM 40 MG TABLET. PO SCH (21:16)
[2021-06-06] MEDS: EPOETIN ALFA-EPBX for ESRD 20,000 UNIT/ML VIAL. SQ SCH (21:16)
[2021-06-07 02:33] VITALS: BP 151/75
--- NOTE | 2021-06-07 02:43 | NUR ---
Assumed care of the patient 06/06/@ 1900. Patient is alert and oriented x4. Denies any pain or discomfort and this time. No complaints or concerns voiced. 1949 Hung first unit of PRBCs as ordered and transfused without any complications or reactions. 2333 Hung the second unit of PRBCs as ordered and transfused without any complications or reactions. 0233 Second unit completed and patient is alert and oriented. Denies any pain or discomfort. No complications or reactions noted and vital signs remained within range. Hemogram orders already in for this morning. Patient is in bed resting quietly. Call wray is in reach. Will continue to monitor.
[2021-06-07] MEDS: HEPARIN for SUB-Q USE 5,000 UNIT/ML VIAL. SQ SCH ×3 (06:24→22:05)
[2021-06-07] MEDS: MIDODRINE 5 MG TABLET PO SCH ×3 (07:00→17:03)
--- NOTE | 2021-06-07 07:22 | NUR ---
pt was not available for meds on 06/06 between [id number]. non admin those meds. was not done by RN from shift leader. HARVEY
[2021-06-07] MEDS: FERROUS SULFATE 325 MG TABLET. PO SCH ×2 (07:25→17:03)
[2021-06-07] MEDS: PANTOPRAZOLE 40 MG TABLET.DR. PO SCH (07:25)
[2021-06-07 07:40] LABS: HEMATOCRIT 27.8 % (36.0-47.0); RED BLOOD COUNT 2.96 x10^6/uL (3.50-5.40); WHITE BLOOD COUNT 4.4 x10^3/uL (4.0-11.0)
[2021-06-07 07:57] LABS: CALCIUM 8.5 mg/dL (8.5-10.1); CREATININE 4.7 mg/dL (0.6-1.0); GFR 8.9; POTASSIUM 4.5 mmol/L (3.5-5.1)
[2021-06-07] MEDS: INSULIN LISPRO 300 UNITS/3 ML VIAL. SQ SCH ×6 (08:00→16:22)
[2021-06-07 08:30] VITALS: BP 138/61
[2021-06-07] MEDS: AMOXICILLIN/K CLAV 500/125MG TABLET. PO SCH (08:56)
[2021-06-07] MEDS: ASPIRIN CHEWABLE 81 MG TABLET. PO SCH (08:56)
[2021-06-07] MEDS: FUROSEMIDE 40 MG TABLET. PO SCH (08:56)
[2021-06-07] MEDS: SENNOSIDES/DOCUSATE 8.6/50MG TABLET. PO SCH ×2 (08:56→22:03)
[2021-06-07] MEDS: LACTOBACILLUS RHAMNOSUS GG 1 CAPSULE. PO SCH ×2 (08:56→22:03)
[2021-06-07] MEDS: NYSTATIN TOPICAL POWDER 15GM BOTTLE. TP SCH ×4 (08:57→21:00)
--- NOTE | 2021-06-07 08:58 | EKG ---
[facility] [address] [place] [address] Test Date: 2021-06-04 Test Time: 12:32:36 Pat Name: MERRICK ARRIAGA Department: Room: Gender: F Recruiting Coordinator: : 1940 Requested By: NILSA CALLAWAY Order Number: [id number] Reading MD: Basil Caldwell Measurements Intervals [place] Rate: 92 P: -90 OR: 136 QRS: 27 QRSD: 76 T: 31 QT: 342 QTc: 428 Interpretive Statements SINUS RHYTHM Electronically Signed On 06-07-2021 8:59:25 [employer]UCLEAR PLANT OPERATOR by Basil Caldwell
--- NOTE | 2021-06-07 10:51 | PDOC ---
Renal-Progress Notes Subjective Notes Notes NO NEW COMPLAINTS History of Present Illness Hx of present illness STABLE Vitals Vitals Vital Signs Date Time Temp Pulse Resp B/P (MAP) Pulse Ox O2 Delivery O2 Flow Rate FiO2 06/07/21 08:30 98.0 70 20 138/61 (86) 98 Room Air 98.0 06/07/21 08:00 2.0 Weight Weight [ ] I.O. Intake and Output Intake and Output 06/07/21 07:00 Intake Total 195 ml Balance 195 ml Intake Oral 120 ml Blood Product IV Normal Saline Flush 75 ml # Voids 2 # Bowel Movements 1 Labs Labs Laboratory Tests Test 06/06/21 11:52 06/06/21 16:37 06/06/21 20:39 06/07/21 07:15 Glucose (Fingerstick) 191 mg/dL (70-99) 96 mg/dL (70-99) 114 mg/dL (70-99) White Blood Count 4.4 x10^3/uL (4.0-11.0) Red Blood Count 2.96 x10^6/uL (3.50-5.40) Hemoglobin 9.0 g/dL (12.0-15.5) Hematocrit 27.8 % (36.0-47.0) Mean Corpuscular Volume 94 fL (79-100) Mean Corpuscular Hemoglobin 30 pg (25-35) Mean Corpuscular Hemoglobin Concent 32 g/dL (31-37) Red Cell Distribution Width 18.0 % (11.5-14.5) Platelet Count 170 x10^3/uL (140-400) Sodium Level 144 mmol/L (136-145) Potassium Level 4.5 mmol/L (3.5-5.1) Chloride Level 110 mmol/L (98-107) Carbon Dioxide Level 25 mmol/L (21-32) Anion Gap 9 (6-14) Blood Urea Nitrogen 39 mg/dL (7-20) Creatinine 4.7 mg/dL (0.6-1.0) Estimated GFR (Cockcroft-Gault) 8.9 Glucose Level 92 mg/dL (70-99) Calcium Level 8.5 mg/dL (8.5-10.1) Iron Level 85 ug/dL (50-170) Total Iron Binding Capacity 107 ug/dL (250-450) Iron Saturation 79 % (15-34) Test 06/07/21 08:21 Glucose (Fingerstick) 101 mg/dL (70-99) Micro Micro Microbiology 06/04/21 Blood Culture - Preliminary, Resulted NO GROWTH AFTER 2 DAYS 06/04/21 Urine Culture - Final, Complete Escherichia Coli Esbl Review of Systems Constitutional: yes: weakness, alert, oriented Ears/Nose/Throat: Yes: no symptom reported Eyes: Yes: no symptom reported Pulmonary: Yes no symptom reported Cardiovascular: Yes no symptom reported Gastrointestional: Yes: no symptom reported Genitourinary: Yes: no symptom reported Musculoskeletal: Yes: no symptom reported Skin: Yes no symptom reported Psychiatric/Neurological: Yes: no symptom reported Endocrine: Yes: no symptom reported Physical Exam General Appearance: no apparent distress Skin: warm Respiratory: bilateral CTA Heart: S1S2 Abdomen: soft, bowel sounds present Genitourinary: bladder flat Extremities: pulses present Neurology: alert, oriented Assessment Assessment IMP S/P NEW TUNNELED HD CATHETER-STILL HAS POOR FLOW ESRD ANEMIA UTI HTN PLAN HD TOMORROW S/P PRBC ANTIBIOTICS CONT RETACRIT AVF PLACEMENT FRIDAY WILL FOLLOW LORRIE CHAVIS MD Jun 07, 2021 10:51
[2021-06-07 11:00] VITALS: BP 145/63
--- NOTE | 2021-06-07 11:37 | PDOC ---
PROGRESS NOTES Date of Service DATE: 06/07/21 TIME: 11:34 Subjective Subjective Patient seen in consultation yesterday for need for long-term dialysis access. Please see Dr. Villarreal's note for further details. Today she is without complaints, reports being right-handed. Denies procedures to left arm. She received tr ansfusion with Hgb 9.0 today. Objective Objective Vital Signs Date Time Temp Pulse Resp B/P (MAP) Pulse Ox O2 Delivery O2 Flow Rate FiO2 06/07/21 08:30 98.0 70 20 138/61 (86) 98 Room Air 98.0 06/07/21 08:00 2.0 Intake and Output 06/07/21 07:00 Intake Total 195 ml Balance 195 ml Intake Oral 120 ml Blood Product IV Normal Saline Flush 75 ml # Voids 2 # Bowel Movements 1 Physical Exam Physical Exam Awake, alert, in no apparent distress. Respirations nonlabored, room air Heart rate regular Left arm without IVs currently but evidence of sticks in the AC cubital area previously. Her hand is warm with excellent capillary refill. She has a very small superficial injury to her nailbed of her fifth finger. She has excellent radial pulse. Good right radial pulse. Abdomen obese, soft, nontender Assessment Assessment Problems Medical Problems: (1) Chronic kidney disease with end stage renal failure on dialysis Status: Acute (2) Encounter for dialysis catheter care Status: Acute Plan Plan of Care Plan for left arm brachiocephalic arteriovenous fistula tomorrow with Dr. Villarreal. Hgb stable today at 9.0 after transfusion. I did discuss with her if need arises will place AV graft. We discussed details of procedure, risks/benefits, expected postop course, expected maturation process. She has been understanding and agree to proceed as recommended. N.p.o. after midnight. Comment Review of Relevant I have reviewed the following items edis (where applicable) has been applied. Labs Laboratory Tests Test 06/05/21 17:16 06/05/21 18:27 06/06/21 06:43 06/06/21 07:32 Glucose (Fingerstick) 195 mg/dL (70-99) 205 mg/dL (70-99) 89 mg/dL (70-99) White Blood Count 4.3 x10^3/uL (4.0-11.0) Red Blood Count 2.11 x10^6/uL (3.50-5.40) Hemoglobin 6.6 g/dL (12.0-15.5) Hematocrit 20.6 % (36.0-47.0) Mean Corpuscular Volume 98 fL (79-100) Mean Corpuscular Hemoglobin 31 pg (25-35) Mean Corpuscular Hemoglobin Concent 32 g/dL (31-37) Red Cell Distribution Width 17.3 % (11.5-14.5) Platelet Count 346 x10^3/uL (140-400) Sodium Level 140 mmol/L (136-145) Potassium Level 4.2 mmol/L (3.5-5.1) Chloride Level 106 mmol/L (98-107) Carbon Dioxide Level 22 mmol/L (21-32) Anion Gap 12 (6-14) Blood Urea Nitrogen 44 mg/dL (7-20) Creatinine 5.2 mg/dL (0.6-1.0) Estimated GFR (Cockcroft-Gault) 8.0 Glucose Level 97 mg/dL (70-99) Calcium Level 8.5 mg/dL (8.5-10.1) Test 06/06/21 11:52 06/06/21 16:37 06/06/21 20:39 06/07/21 07:15 Glucose (Fingerstick) 191 mg/dL (70-99) 96 mg/dL (70-99) 114 mg/dL (70-99) White Blood Count 4.4 x10^3/uL (4.0-11.0) Red Blood Count 2.96 x10^6/uL (3.50-5.40) Hemoglobin 9.0 g/dL (12.0-15.5) Hematocrit 27.8 % (36.0-47.0) Mean Corpuscular Volume 94 fL (79-100) Mean Corpuscular Hemoglobin 30 pg (25-35) Mean Corpuscular Hemoglobin Concent 32 g/dL (31-37) Red Cell Distribution Width 18.0 % (11.5-14.5) Platelet Count 170 x10^3/uL (140-400) Sodium Level 144 mmol/L (136-145) Potassium Level 4.5 mmol/L (3.5-5.1) Chloride Level 110 mmol/L (98-107) Carbon Dioxide Level 25 mmol/L (21-32) Anion Gap 9 (6-14) Blood Urea Nitrogen 39 mg/dL (7-20) Creatinine 4.7 mg/dL (0.6-1.0) Estimated GFR (Cockcroft-Gault) 8.9 Glucose Level 92 mg/dL (70-99) Calcium Level 8.5 mg/dL (8.5-10.1) Iron Level 85 ug/dL (50-170) Total Iron Binding Capacity 107 ug/dL (250-450) Iron Saturation 79 % (15-34) Test 06/07/21 08:21 06/07/21 10:57 Glucose (Fingerstick) 101 mg/dL (70-99) 98 mg/dL (70-99) Laboratory Tests Test 06/06/21 11:52 06/06/21 16:37 06/06/21 20:39 06/07/21 07:15 Glucose (Fingerstick) 191 mg/dL (70-99) 96 mg/dL (70-99) 114 mg/dL (70-99) White Blood Count 4.4 x10^3/uL (4.0-11.0) Red Blood Count 2.96 x10^6/uL (3.50-5.40) Hemoglobin 9.0 g/dL (12.0-15.5) Hematocrit 27.8 % (36.0-47.0) Mean Corpuscular Volume 94 fL (79-100) Mean Corpuscular Hemoglobin 30 pg (25-35) Mean Corpuscular Hemoglobin Concent 32 g/dL (31-37) Red Cell Distribution Width 18.0 % (11.5-14.5) Platelet Count 170 x10^3/uL (140-400) Sodium Level 144 mmol/L (136-145) Potassium Level 4.5 mmol/L (3.5-5.1) Chloride Level 110 mmol/L (98-107) Carbon Dioxide Level 25 mmol/L (21-32) Anion Gap 9 (6-14) Blood Urea Nitrogen 39 mg/dL (7-20) Creatinine 4.7 mg/dL (0.6-1.0) Estimated GFR (Cockcroft-Gault) 8.9 Glucose Level 92 mg/dL (70-99) Calcium Level 8.5 mg/dL (8.5-10.1) Iron Level 85 ug/dL (50-170) Total Iron Binding Capacity 107 ug/dL (250-450) Iron Saturation 79 % (15-34) Test 06/07/21 08:21 06/07/21 10:57 Glucose (Fingerstick) 101 mg/dL (70-99) 98 mg/dL (70-99) Microbiology 06/04/21 Blood Culture - Preliminary, Resulted NO GROWTH AFTER 2 DAYS 06/04/21 Urine Culture - Final, Complete Escherichia Coli Esbl Medications Current Medications Ceftriaxone Sodium (Rocephin) 1 gm 1X ONCE IVP Last administered on 06/04/21at 14:16; Start 06/04/21 at 14:15; Stop 06/04/21 at 14:16; Status DC Sodium Chloride 500 ml @ 500 mls/hr 1X ONCE IV Last administered on 06/04/21at 14:15; Start 06/04/21 at 14:15; Stop 06/04/21 at 15:14; Status DC Ondansetron HCl (Zofran) 4 mg PRN Q6HRS PRN IVP NAUSEA/VOMITING Last administered on 06/05/21at 21:33; Start 06/04/21 at 15:30 Calcium Carbonate/ Glycine (Tums) 500 mg PRN Q3HRS PRN PO UPSET STOMACH Last administered on 06/05/21at 21:17; Start 06/04/21 at 15:30 Info (Non-Icu Electrolyte Protocol) 1 ea PRN DAILY PRN MC SEE COMMENTS; Start 06/04/21 at 15:30 Acetaminophen (Tylenol) 650 mg PRN Q6HRS PRN PO Headaches, Temp > 101.5F; Start 06/04/21 at 15:30; Status Cancel Senna/Docusate Sodium (Senna Plus) 1 tab BID PO Last administered on 06/07/21at 08:56; Start 06/04/21 at 21:00 Heparin Sodium (Porcine) (Heparin Sodium) 5,000 unit Q8HRS SQ Last administered on 06/07/21at 06:24; Start 06/04/21 at 22:00 Acetaminophen (Tylenol) 325 mg PRN QID PRN PO PAIN; Start 06/04/21 at 18:30 Amlodipine Besylate (Norvasc) 5 mg DAILY PO ; Start 06/05/21 at 09:00; Stop 06/05/21 at 14:34; Status DC Aspirin (Aspirin Chewable) 81 mg DAILY PO Last administered on 06/07/21 08:56; Start 06/05/21 at 09:00 Atorvastatin Calcium (Lipitor) 40 mg QHS PO Last administered on 06/06/21at 21:16; Start 06/04/21 at 21:00 Ergocalciferol (Vitamin D2) 50,000 unit WEEKLY PO ; Start 06/11/21 at 09:00 Ferrous Sulfate (Feosol) 325 mg BIDWMEALS PO Last administered on 06/07/21 07:25; Start 06/04/21 at 21:00 Furosemide (Lasix) 40 mg DAILY PO Last administered on 06/07/21 08:56; Start 06/05/21 at 09:00 Insulin Glargine (Lantus Syringe) 8 unit QHS SQ Last administered on 06/06/21at 21:16; Start 06/04/21 at 21:00 Lactobacillus Rhamnosus (Culturelle) 1 cap BID PO Last administered on 06/07/21 08:56; Start 06/04/21 at 21:00 Midodrine (Proamatine) 5 mg [id number] PO Last administered on 06/07/21at 07:00; Start 06/05/21 at 07:00 Nystatin (Nystop) 1 laurel QID TP Last administered on 06/07/21 08:57; Start 06/04/21 at 21:00 Pantoprazole Sodium (Protonix) 40 mg DAILYAC PO Last administered on 06/07/21 07:25; Start 06/05/21 at 07:30 Polyethylene Glycol (miraLAX PACKET) 17 gm DAILY PRN PO CONSTIPATION; Start 06/04/21 at 18:30 Insulin Human Lispro (HumaLOG) 5 units TIDWMEALS SQ Last administered on 06/06/21at 14:08; Start 06/04/21 at 20:00 Acetaminophen (Tylenol) 650 mg PRN QID PRN PO PAIN; Start 06/04/21 at 18:45 Ceftriaxone Sodium (Rocephin) 1 gm Q24H IVP Last administered on 06/06/21at 15:54; Start 06/05/21 at 14:00; Stop 06/06/21 at 16:04; Status DC Insulin Human Lispro (HumaLOG) 0-7 UNITS TIDWMEALS SQ Last administered on 06/06/21at 14:07; Start 06/05/21 at 08:00 Dextrose (Dextrose 50%-Water Syringe) 12.5 gm PRN Q15MIN PRN IV SEE COMMENTS; Start 06/05/21 at 00:45 Dextrose (Iv Dextrose 5%) 250 ml PRN Q15MIN PRN IV SEE COMMENTS; Start 06/05/21 at 00:45 Epoetin Romulo-epbx (RETACRIT for ESRD PTS) 10,000 unit MoWeFr@2100 SQ Last administered on 06/06/21at 21:16; Start 06/06/21 at 21:00 Lidocaine/ Epinephrine (LIDOCAINE 1%-EPI 1:100,000 Multi-Dose) 20 ml STK-MED ONCE .ROUTE ; Start 06/05/21 at 13:30; Stop 06/05/21 at 13:30; Status DC Midazolam HCl (Versed) 2 mg STK-MED ONCE .ROUTE ; Start 06/05/21 at 14:04; Stop 06/05/21 at 14:05; Status DC Fentanyl Citrate (Fentanyl 2ml Vial) 100 mcg STK-MED ONCE .ROUTE ; Start 06/05/21 at 14:05; Stop 06/05/21 at 14:05; Status DC Cefazolin Sodium/ Dextrose 50 ml @ As Directed STK-MED ONCE IV ; Start 06/05/21 at 14:05; Stop 06/05/21 at 14:05; Status DC Midazolam HCl (Versed) 2 mg 1X ONCE IV Last administered on 06/05/21at 14:15; Start 06/05/21 at 14:30; Stop 06/05/21 at 14:33; Status DC Fentanyl Citrate (Fentanyl 2ml Vial) 50 mcg 1X ONCE IV Last administered on 06/05/21at 14:12; Start 06/05/21 at 14:30; Stop 06/05/21 at 14:33; Status DC Lidocaine/ Epinephrine (LIDOCAINE 1%-EPI 1:100,000 Multi-Dose) 20 ml 1X ONCE INJ Last administered on 06/05/21at 14:30; Start 06/05/21 at 14:30; Stop 06/05/21 at 14:33; Status DC Cefazolin Sodium/ Dextrose 50 ml @ 100 mls/hr 1X ONCE IV Last administered on 06/05/21at 14:10; Start 06/05/21 at 14:30; Stop 06/05/21 at 14:59; Status DC Sodium Chloride 1,000 ml @ 1,000 mls/hr Q1H PRN IV hypotension; Start 06/06/21 at 08:30; Stop 06/06/21 at 14:29; Status DC Albumin Human 200 ml @ 200 mls/hr 1X PRN PRN IV Hypotension; Start 06/06/21 at 08:30; Stop 06/06/21 at 14:29; Status DC Sodium Chloride 1,000 ml @ 400 mls/hr Q2H30M PRN IV PATENCY; Start 06/06/21 at 08:30; Stop 06/06/21 at 20:29; Status DC Info (PHARMACY MONITORING -- do not chart) 1 each PRN DAILY PRN MC SEE COMMENT S; Start 06/06/21 at 08:30; Status UNV Info (PHARMACY MONITORING -- do not chart) 1 each PRN DAILY PRN MC SEE COMMENTS; Start 06/06/21 at 08:30 Amoxicillin/ Clavulanate Potassium (Augmentin 500/ 125mg) 1 tab DAILY PO Last administered on 06/07/21at 08:56; Start 06/06/21 at 17:00 Cefazolin Sodium/ Dextrose 50 ml @ 100 mls/hr 1X PREOP PRN IV PRIOR TO PROCEDURE; Start 06/08/21 at 06:00; Stop 06/08/21 at 18:00 Active Scripts Active Midodrine Hcl 2.5 Mg Tablet 5 Mg PO [id number] 30 Days Novolog (Insulin Aspart) 100 Unit/1 Ml Cartridge 5 Unit SQ TIDAC 30 Days Lantus (Insulin Glargine,Hum.rec.anlog) 100 Unit/1 Ml Vial 8 Unit SQ QHS 30 Days Amlodipine Besylate 5 Mg Tablet 5 Mg PO DAILY 60 Days Polyethylene Glycol 3350 17 Gm Powd.pack 17 Gm PO DAILY PRN 30 Days Aspirin 81 Mg Tab.chew 1 Tab PO DAILY Nystop (Nystatin) 60 Gm Powder 1 Laurel TP QID 15 Days Culturelle (Lactobacillus Rhamnosus Gg) 1 Each Cap.sprink 1 Cap PO BID 30 Days Feosol (Ferrous Sulfate) 325 Mg Tablet 325 Mg PO BIDWMEALS 30 Days Tylenol (Acetaminophen) 325 Mg Tablet 1-2 Tab PO QID PRN Reported Furosemide 40 Mg Tablet 1 Tab PO DAILY Vitamin D2 (Ergocalciferol (Vitamin D2)) 50,000 Unit Capsule 1 Cap PO WEEKLY Pantoprazole Sodium (Pantoprazole Sodium) 40 Mg Tablet. 1 Tab PO DAILY Atorvastatin Calcium 40 Mg Tablet 1 Tab PO QHS Vitals/I & O Vital Sign - Last 24 Hours 06/06/21 06/06/21 06/06/21 06/06/21 13:55 15:00 18:00 19:49 Temp 98.2 98.1 98.2 98.1 Pulse 78 82 76 80 Resp 18 B/P (MAP) 119/54 106/43 (64) 151/75 138/58 (84) Pulse Ox 98 98 O2 Delivery Room Air 06/06/21 06/06/21 06/06/21 06/06/21 20:00 20:07 21:19 23:00 Temp 98.3 98.0 98.1 98.3 98.0 98.1 Pulse 70 69 66 B/P (MAP) 141/62 (88) 142/62 (88) 139/60 (86) Pulse Ox 100 99 98 O2 Delivery Room Air Room Air Room Air O2 Flow Rate 2.0 06/06/21 06/07/21 06/07/21 06/07/21 23:44 02:33 07:00 08:00 Temp 98.3 98.3 98.3 98.3 Pulse 75 76 76 B/P (MAP) 141/66 (91) 151/75 (100) 151/75 Pulse Ox 99 97 O2 Delivery Room Air Room Air O2 Flow Rate 2.0 06/07/21 08:30 Temp 98.0 98.0 Pulse 70 Resp 20 B/P (MAP) 138/61 (86) Pulse Ox 98 O2 Delivery Room Air Intake and Output 06/06/21 06/06/21 06/07/21 15:00 23:00 07:00 Intake Total 145 ml 50 ml Balance 145 ml 50 ml Justifications for Admission Other Justification CYNTHIA LAMBERT Jun 07, 2021 11:37
--- NOTE | 2021-06-07 12:05 | PDOC ---
[employer] PROGRESS NOTE Date of Service DOS: DATE: 06/07/21 TIME: 12:04 Chief Complaint Chief Complaint Dialysis catheter malfunction ESRD on dialysis UTI History of A. fib CHF Diabetes Hypertension Hyperlipidemia History of Present Illness History of Present Illness 06/08/2019 Patient seen and examined extent discussed with RN Chart reviewed She is scheduled to go to the OR tomorrow for left arm graft dialysis access 06/06/2021 Patient seen and examined Discussed with Dr. Phil Villarreal would like to put a fistula in the left arm perhaps in a week or 2 after the UTI has resolved Appreciate Dr. Villarreal input 06/06/2019 Patient seen and examined , discussed with RN, chart reviewed She is scheduled to go to IR today for evaluation of her malfunctioning dialysis cath Vitals/I&O Vitals/I&O: Vital Signs Date Time Temp Pulse Resp B/P (MAP) Pulse Ox O2 Delivery O2 Flow Rate FiO2 06/07/21 08:30 98.0 70 20 138/61 (86) 98 Room Air 98.0 06/07/21 08:00 2.0 I & O 06/06/21 06/06/21 06/07/21 15:00 23:00 07:00 Intake Total 145 ml 50 ml Balance 145 ml 50 ml Physical Exam General: Alert, Oriented X3 Heart: Regular rate Lungs: Clear Abdomen: Normal bowel sounds, Soft, No tenderness Extremities: Other Skin: Other Labs Labs: Laboratory Tests Test 06/06/21 16:37 06/06/21 20:39 06/07/21 07:15 06/07/21 08:21 Glucose (Fingerstick) 96 mg/dL (70-99) 114 mg/dL (70-99) 101 mg/dL (70-99) White Blood Count 4.4 x10^3/uL (4.0-11.0) Red Blood Count 2.96 x10^6/uL (3.50-5.40) Hemoglobin 9.0 g/dL (12.0-15.5) Hematocrit 27.8 % (36.0-47.0) Mean Corpuscular Volume 94 fL (79-100) Mean Corpuscular Hemoglobin 30 pg (25-35) Mean Corpuscular Hemoglobin Concent 32 g/dL (31-37) Red Cell Distribution Width 18.0 % (11.5-14.5) Platelet Count 170 x10^3/uL (140-400) Sodium Level 144 mmol/L (136-145) Potassium Level 4.5 mmol/L (3.5-5.1) Chloride Level 110 mmol/L (98-107) Carbon Dioxide Level 25 mmol/L (21-32) Anion Gap 9 (6-14) Blood Urea Nitrogen 39 mg/dL (7-20) Creatinine 4.7 mg/dL (0.6-1.0) Estimated GFR (Cockcroft-Gault) 8.9 Glucose Level 92 mg/dL (70-99) Calcium Level 8.5 mg/dL (8.5-10.1) Iron Level 85 ug/dL (50-170) Total Iron Binding Capacity 107 ug/dL (250-450) Iron Saturation 79 % (15-34) Test 06/07/21 10:57 Glucose (Fingerstick) 98 mg/dL (70-99) Assessment and Plan Assessmemt and Plan Problems Medical Problems: (1) Chronic kidney disease with end stage renal failure on dialysis Status: Acute (2) Encounter for dialysis catheter care Status: Acute Dialysis catheter malfunction ESRD on dialysis UTI History of A. fib CHF Diabetes Hypertension Hyperlipidemia Plan Continue dialysis Dr. Villarreal taking the patient to the OR tomorrow for left arm graft dialysis access For now continue the following: Antibiotics Home meds DVT prophylaxis Full code Trend labs Encourage p.o. intake Continue Rocephin Discharge disposition pending Comment Review of Relevant I have reviewed the following items edis (where applicable) has been applied. Medications: Current Medications Medications (Trade) Dose Ordered Sig/Angy Route PRN Reason Start Time Stop Time Status Last Admin Dose Admin Epoetin Romulo-epbx (RETACRIT for ESRD PTS) 10,000 unit MoWeFr@2100 SQ 06/06/21 21:00 06/06/21 21:16 Amoxicillin/ Clavulanate Potassium (Augmentin 500/ 125mg) 1 tab DAILY PO 06/06/21 17:00 06/07/21 08:56 Justifications for Admission Other Justification NARCISO SHIELDS III DO Jun 07, 2021 12:05
[2021-06-07] MEDS: POLYETHYLENE GLYCOL 3350 17 GM PACKET. PO PRN ×2 (14:24→22:03)
[2021-06-07 15:00] VITALS: BP 138/64
--- NOTE | 2021-06-07 15:22 | NUR ---
SS following for discharge planning. SS reviewed pt chart and discussed with pt RN. Pt is from home with sister and is currently on room air. Pt has outpatient hemodialysis at [facility]. Pt was on services with [facility], ; fax [phone]. Nephrology and Vascular following. Pt having graft placed tomorrow. SS will continue to follow for discharge planning.
[2021-06-07 19:00] VITALS: BP 134/69
--- NOTE | 2021-06-07 20:27 | NUR ---
Assumed care of the patient in bed alert and oriented watching television without any distress. Received call from chon Serra stating patients results from [facility] stated patient is Covid+
[2021-06-07] MEDS: ATORVASTATIN CALCIUM 40 MG TABLET. PO SCH (22:03)
[2021-06-07] MEDS: INSULIN GLARGINE SYRINGE. SQ SCH (22:05)
[2021-06-07 23:40] VITALS: BP 138/70
[2021-06-08 03:29] VITALS: BP 149/77
[2021-06-08] MEDS ORDERED: MORPHINE SULFATE 2 MG/ML INJ. IVP PRN (06:00)
[2021-06-08] MEDS ORDERED: HYDROmorphone 2 MG/ML INJ. IVP PRN (06:00)
[2021-06-08] MEDS: HEPARIN for SUB-Q USE 5,000 UNIT/ML VIAL. SQ SCH ×3 (06:00→21:12)
[2021-06-08] MEDS ORDERED: HEPARIN SODIUM 5,000 UNIT in IV NORMAL SALINE 500ML BAG 500 ML IRR ONE (06:00)
[2021-06-08] MEDS ORDERED: ceFAZolin 2GM PREMIX 2 GM/50 ML BAG IV ONE (06:00)
[2021-06-08] MEDS ORDERED: PROCHLORPERAZINE 10 MG/2 ML VIAL. IVP PRN (06:00)
[2021-06-08] MEDS ORDERED: fentaNYL PF VIAL 100 MCG/2 ML VIAL IVP PRN ×2 (06:00)
[2021-06-08] MEDS ORDERED: IV RINGERS,LACTATED 1000ML 1,000 ML IV SCH (06:00)
[2021-06-08 06:20] LABS: HEMATOCRIT 29.3 % (36.0-47.0); HEMOGLOBIN 9.5 g/dL (12.0-15.5); RED BLOOD COUNT 3.1 x10^6/uL (3.50-5.40); RED CELL DISTRIBUTION WIDTH 17.7 % (11.5-14.5); WHITE BLOOD COUNT 5.7 x10^3/uL (4.0-11.0)
[2021-06-08 06:43] LABS: CALCIUM 8.8 mg/dL (8.5-10.1); CREATININE 4.8 mg/dL (0.6-1.0); GFR 8.7; POTASSIUM 4.4 mmol/L (3.5-5.1)
[2021-06-08 07:00] VITALS: BP 129/64
[2021-06-08] MEDS: MIDODRINE 5 MG TABLET PO SCH ×3 (07:00→17:27)
[2021-06-08] MEDS: INSULIN LISPRO 300 UNITS/3 ML VIAL. SQ SCH ×6 (08:00→17:00)
[2021-06-08] MEDS: ASPIRIN CHEWABLE 81 MG TABLET. PO SCH (08:35)
[2021-06-08] MEDS: PANTOPRAZOLE 40 MG TABLET.DR. PO SCH (08:35)
[2021-06-08] MEDS: AMOXICILLIN/K CLAV 500/125MG TABLET. PO SCH (08:35)
[2021-06-08] MEDS: FUROSEMIDE 40 MG TABLET. PO SCH (08:36)
[2021-06-08] MEDS: LACTOBACILLUS RHAMNOSUS GG 1 CAPSULE. PO SCH ×2 (08:36→21:15)
[2021-06-08] MEDS: SENNOSIDES/DOCUSATE 8.6/50MG TABLET. PO SCH ×2 (08:36→21:15)
[2021-06-08] MEDS: FERROUS SULFATE 325 MG TABLET. PO SCH ×2 (08:36→17:00)
[2021-06-08] MEDS: NYSTATIN TOPICAL POWDER 15GM BOTTLE. TP SCH ×4 (09:00→21:17)
--- NOTE | 2021-06-08 10:01 | PDOC ---
Provider Note Date of Service: DATE: 06/08/21 TIME: 09:58 Provider Note Provider Note Vascular update: Pt was scheduled for elective left arm AVF creation today, however she tested positive for COVID yesterday afternoon. Therefore since surgery is elective we proceeded to cancel and reschedule. She is scheduled for surgery 06/22/[address] Villarreal, we will plan this as an outpatient procedure. Discussed with nursing staff who will discuss with pt. We will sign off and see for surgery in a couple weeks, please call with further questions or concerns. Justicifation of Admission Dx: Justifications for Admission: Justification of Admission Dx: Yes Acute Renal Failure: RF Can't Be Managed Outpt Chronic Renal Failure: Renail Failure CYNTHIA LAMBERT Jun 08, 2021 10:01
[2021-06-08] MEDS ORDERED: DIALYSIS PATIENT. MC PRN (10:30)
[2021-06-08] MEDS ORDERED: IV NORMAL SALINE 1000ML BAG 1,000 ML IV PRN ×2 (10:30)
--- NOTE | 2021-06-08 10:55 | PDOC ---
Renal-Progress Notes Subjective Notes Notes NO NEW COMPLAINTS History of Present Illness Hx of present illness STABLE Vitals Vitals Vital Signs Date Time Temp Pulse Resp B/P (MAP) Pulse Ox O2 Delivery O2 Flow Rate FiO2 06/08/21 07:00 97.6 74 20 129/64 (85) 98 Room Air 97.6 06/07/21 08:00 2.0 Weight Weight [ ] I.O. Intake and Output Intake and Output 06/08/21 07:00 Intake Total 240 ml Output Total 300 ml Balance -60 ml Intake Oral 240 ml Output Urine Total 300 ml # Voids 2 # Bowel Movements 1 Labs Labs Laboratory Tests Test 06/07/21 10:57 06/07/21 13:00 06/07/21 15:52 06/07/21 20:10 Glucose (Fingerstick) 98 mg/dL (70-99) 108 mg/dL (70-99) 188 mg/dL (70-99) Coronavirus (COVID-19)(PCR) Positive (NOT DETECTD) SARS-CoV-2 Antigen (Rapid) Negative (NEGATIVE) Test 06/08/21 06:05 06/08/21 07:20 06/08/21 10:52 White Blood Count 5.7 x10^3/uL (4.0-11.0) Red Blood Count 3.10 x10^6/uL (3.50-5.40) Hemoglobin 9.5 g/dL (12.0-15.5) Hematocrit 29.3 % (36.0-47.0) Mean Corpuscular Volume 95 fL (79-100) Mean Corpuscular Hemoglobin 31 pg (25-35) Mean Corpuscular Hemoglobin Concent 32 g/dL (31-37) Red Cell Distribution Width 17.7 % (11.5-14.5) Platelet Count 393 x10^3/uL (140-400) Sodium Level 145 mmol/L (136-145) Potassium Level 4.4 mmol/L (3.5-5.1) Chloride Level 110 mmol/L (98-107) Carbon Dioxide Level 25 mmol/L (21-32) Anion Gap 10 (6-14) Blood Urea Nitrogen 43 mg/dL (7-20) Creatinine 4.8 mg/dL (0.6-1.0) Estimated GFR (Cockcroft-Gault) 8.7 Glucose Level 91 mg/dL (70-99) Calcium Level 8.8 mg/dL (8.5-10.1) Glucose (Fingerstick) 91 mg/dL (70-99) 130 mg/dL (70-99) Micro Micro Microbiology 06/04/21 Blood Culture - Preliminary, Resulted NO GROWTH AFTER 3 DAYS 06/04/21 Urine Culture - Final, Complete Escherichia Coli Esbl Review of Systems Constitutional: yes: weakness, alert, oriented Ears/Nose/Throat: Yes: no symptom reported Eyes: Yes: no symptom reported Pulmonary: Yes no symptom reported Cardiovascular: Yes no symptom reported Gastrointestional: Yes: no symptom reported Genitourinary: Yes: no symptom reported Musculoskeletal: Yes: no symptom reported Skin: Yes no symptom reported Psychiatric/Neurological: Yes: no symptom reported Endocrine: Yes: no symptom reported Physical Exam General Appearance: no apparent distress Skin: warm Respiratory: bilateral CTA Heart: S1S2 Abdomen: soft, bowel sounds present Genitourinary: bladder flat Extremities: pulses present Neurology: alert, oriented Assessment Assessment IMP S/P NEW TUNNELED HD CATHETER-STILL HAS POOR FLOW ESRD ANEMIA UTI HTN COVID 19 POS PLAN HD TODAY ANTIBIOTICS CONT RETACRIT AVF PLACEMENT POSTPONED WILL FOLLOW LORRIE CHAVIS MD Jun 08, 2021 10:55
[2021-06-08 11:00] VITALS: BP 147/67
--- NOTE | 2021-06-08 11:32 | PDOC ---
[employer] PROGRESS NOTE Date of Service DOS: DATE: 06/08/21 TIME: 11:27 Chief Complaint Chief Complaint Dialysis catheter malfunction ESRD on dialysis UTI History of A. guillermo CHF Diabetes Hypertension Hyperlipidemia History of Present Illness History of Present Illness 06/08/2021: Afebrile. Patient denies any shortness of breath, nausea, vomiting, or diarrhea. She is COVID-19 positive, but due to lack of any symptoms I believe this PCR finding is residual from remote illness. She has tunneled hemodialysis catheter in place, and is scheduled for hemodialysis today. Due to positive COVID-19 status vascular surgery scheduled surgical revision of her fistula until 06/22/21. She does still complain of urinary urgency. Due to some stated weakness in difficulty getting around the house, I will have patient work with physical therapy evaluate for SNF. 06/08/2019 Patient seen and examined extent discussed with RN Chart reviewed She is scheduled to go to the OR tomorrow for left arm graft dialysis access 06/06/2021 Patient seen and examined Discussed with Dr. Phil Villarreal would like to put a fistula in the left arm perhaps in a week or 2 after the UTI has resolved Appreciate Dr. Villarreal input 06/06/2019 Patient seen and examined , discussed with RN, chart reviewed She is scheduled to go to IR today for evaluation of her malfunctioning dialysis cath Vitals/I&O Vitals/I&O: Vital Signs Date Time Temp Pulse Resp B/P (MAP) Pulse Ox O2 Delivery O2 Flow Rate FiO2 06/08/21 11:00 97.6 78 20 147/67 (93) 98 Room Air 97.6 06/07/21 08:00 2.0 I & O 06/07/21 06/07/21 06/08/21 15:00 23:00 07:00 Intake Total 60 ml 180 ml Output Total 300 ml Balance -300 ml 60 ml 180 ml Physical Exam General: Alert, Oriented X3 Heart: Regular rate Lungs: Clear Abdomen: Normal bowel sounds, Soft, No tenderness Extremities: Other Skin: Other Labs Labs: Laboratory Tests Test 06/07/21 13:00 06/07/21 15:52 06/07/21 20:10 06/08/21 06:05 Coronavirus (COVID-19)(PCR) Positive (NOT DETECTD) SARS-CoV-2 Antigen (Rapid) Negative (NEGATIVE) Glucose (Fingerstick) 108 mg/dL (70-99) 188 mg/dL (70-99) White Blood Count 5.7 x10^3/uL (4.0-11.0) Red Blood Count 3.10 x10^6/uL (3.50-5.40) Hemoglobin 9.5 g/dL (12.0-15.5) Hematocrit 29.3 % (36.0-47.0) Mean Corpuscular Volume 95 fL (79-100) Mean Corpuscular Hemoglobin 31 pg (25-35) Mean Corpuscular Hemoglobin Concent 32 g/dL (31-37) Red Cell Distribution Width 17.7 % (11.5-14.5) Platelet Count 393 x10^3/uL (140-400) Sodium Level 145 mmol/L (136-145) Potassium Level 4.4 mmol/L (3.5-5.1) Chloride Level 110 mmol/L (98-107) Carbon Dioxide Level 25 mmol/L (21-32) Anion Gap 10 (6-14) Blood Urea Nitrogen 43 mg/dL (7-20) Creatinine 4.8 mg/dL (0.6-1.0) Estimated GFR (Cockcroft-Gault) 8.7 Glucose Level 91 mg/dL (70-99) Calcium Level 8.8 mg/dL (8.5-10.1) Test 06/08/21 07:20 06/08/21 10:52 Glucose (Fingerstick) 91 mg/dL (70-99) 130 mg/dL (70-99) Assessment and Plan Assessmemt and Plan Problems Medical Problems: (1) Chronic kidney disease with end stage 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 Justifications for Admission Other Justification TIAN NYE MD Jun 08, 2021 11:32
[2021-06-08 15:00] VITALS: BP 142/71
--- NOTE | 2021-06-08 15:10 | NUR ---
SS following up with discharge planning. SS reviewed pt chart and discussed with pt RN. Pt is currently on room air. COVID19 positive since 04/17/2021. Vascular rescheduled procedure for two weeks from now. PT/OT ordered. Pt has outpatient hemodialysis at [facility]. Pt is current with [facility], ; fax [phone]. SS will continue to follow for discharge planning.
--- NOTE | 2021-06-08 15:22 | NUR ---
Patient last tested COVID positive by pcr on 04/17/21- This information was shared with Vascular Surgery. No changes in timing of fistula placement was made at time of phone call. I spoke with Meghana Barba who stated she would share this information with the others and if patient is still here on Friday they may revisit an earlier placement.
[2021-06-08 19:55] VITALS: BP 122/70
[2021-06-08] MEDS: INSULIN GLARGINE SYRINGE. SQ SCH (21:00)
[2021-06-08] MEDS: ATORVASTATIN CALCIUM 40 MG TABLET. PO SCH (21:15)
[2021-06-08] MEDS: EPOETIN ALFA-EPBX for ESRD 20,000 UNIT/ML VIAL. SQ SCH (21:16)
[2021-06-08 23:43] VITALS: BP 114/61
[2021-06-09 03:35] VITALS: BP 120/69
[2021-06-09] MEDS: MIDODRINE 5 MG TABLET PO SCH ×3 (06:11→17:01)
[2021-06-09] MEDS: HEPARIN for SUB-Q USE 5,000 UNIT/ML VIAL. SQ SCH ×3 (06:13→21:20)
[2021-06-09 07:00] VITALS: BP 117/60
[2021-06-09] MEDS: INSULIN LISPRO 300 UNITS/3 ML VIAL. SQ SCH ×7 (08:00→17:03)
[2021-06-09] MEDS: NYSTATIN TOPICAL POWDER 15GM BOTTLE. TP SCH ×4 (09:00→21:17)
[2021-06-09] MEDS: LACTOBACILLUS RHAMNOSUS GG 1 CAPSULE. PO SCH ×2 (09:13→21:15)
[2021-06-09] MEDS: SENNOSIDES/DOCUSATE 8.6/50MG TABLET. PO SCH ×2 (09:13→21:15)
[2021-06-09] MEDS: AMOXICILLIN/K CLAV 500/125MG TABLET. PO SCH (09:13)
[2021-06-09] MEDS: ASPIRIN CHEWABLE 81 MG TABLET. PO SCH (09:13)
[2021-06-09] MEDS: FERROUS SULFATE 325 MG TABLET. PO SCH ×2 (09:13→17:01)
[2021-06-09] MEDS: PANTOPRAZOLE 40 MG TABLET.DR. PO SCH (09:14)
[2021-06-09] MEDS: FUROSEMIDE 40 MG TABLET. PO SCH (09:14)
[2021-06-09 11:00] VITALS: BP 115/61
[2021-06-09 15:00] VITALS: BP 125/60
[2021-06-09 19:00] VITALS: BP 153/71
[2021-06-09] MEDS: INSULIN GLARGINE SYRINGE. SQ SCH (21:00)
[2021-06-09] MEDS: ATORVASTATIN CALCIUM 40 MG TABLET. PO SCH (21:15)
[2021-06-09 23:00] VITALS: BP 144/66
[2021-06-10 03:00] VITALS: BP 124/68
[2021-06-10] MEDS: MIDODRINE 5 MG TABLET PO SCH ×3 (06:07→17:26)
[2021-06-10] MEDS: HEPARIN for SUB-Q USE 5,000 UNIT/ML VIAL. SQ SCH ×3 (06:08→21:16)
[2021-06-10 07:00] VITALS: BP 129/63
[2021-06-10] MEDS: SENNOSIDES/DOCUSATE 8.6/50MG TABLET. PO SCH ×2 (08:05→21:12)
[2021-06-10] MEDS: LACTOBACILLUS RHAMNOSUS GG 1 CAPSULE. PO SCH ×2 (08:05→21:12)
[2021-06-10] MEDS: FUROSEMIDE 40 MG TABLET. PO SCH (08:05)
[2021-06-10] MEDS: FERROUS SULFATE 325 MG TABLET. PO SCH ×2 (08:05→17:25)
[2021-06-10] MEDS: AMOXICILLIN/K CLAV 500/125MG TABLET. PO SCH (08:05)
[2021-06-10] MEDS: INSULIN LISPRO 300 UNITS/3 ML VIAL. SQ SCH ×6 (08:06→17:28)
[2021-06-10] MEDS: PANTOPRAZOLE 40 MG TABLET.DR. PO SCH (08:06)
[2021-06-10] MEDS: ASPIRIN CHEWABLE 81 MG TABLET. PO SCH (08:47)
[2021-06-10] MEDS: NYSTATIN TOPICAL POWDER 15GM BOTTLE. TP SCH ×4 (08:47→21:13)
[2021-06-10 10:00] VITALS: BP 128/65
--- NOTE | 2021-06-10 12:20 | PDOC ---
[facility] [facility] PROGRESS NOTE Date of Service DOS: DATE: 06/10/21 TIME: 12:19 Chief Complaint Chief Complaint LATE ENTRY, pt seen 3.12 Dialysis catheter malfunction ESRD on dialysis UTI History of Ronda li CHF Diabetes Hypertension Hyperlipidemia History of Present Illness History of Present Illness 06/09, not much change, needs skilled 06/08/2021: Afebrile. Patient denies any shortness of breath, nausea, vomiting, or diarrhea. She is COVID-19 positive, but due to lack of any symptoms I believe this PCR finding is residual from remote illness. She has tunneled hemodialysis catheter in place, and is scheduled for hemodialysis today. Due to positive COVID-19 status vascular surgery scheduled surgical revision of her fistula until 06/22/21. She does still complain of urinary urgency. Due to some stated weakness in difficulty getting around the house, I will have patient work with physical therapy evaluate for SNF. 06/08/2019 Patient seen and examined extent discussed with RN Chart reviewed She is scheduled to go to the OR tomorrow for left arm graft dialysis access 06/06/2021 Patient seen and examined Discussed with Dr. Phil Villarreal would like to put a fistula in the left arm perhaps in a week or 2 after the UTI has resolved Appreciate Dr. Villarreal input 06/06/2019 Patient seen and examined , discussed with RN, chart reviewed She is scheduled to go to IR today for evaluation of her malfunctioning dialysis cath Vitals/I&O Vitals/I&O: Vital Signs Date Time Temp Pulse Resp B/P (MAP) Pulse Ox O2 Delivery O2 Flow Rate FiO2 06/10/21 10:00 97.6 62 20 128/65 (86) 99 Room Air 97.6 I & O 06/09/21 06/09/21 06/10/21 15:00 23:00 07:00 Intake Total 240 ml 390 ml 90 ml Balance 240 ml 390 ml 90 ml Physical Exam General: Alert, Oriented X3 Heart: Regular rate Lungs: Clear Abdomen: Normal bowel sounds, Soft, No tenderness Extremities: Other Skin: Other Labs Labs: Laboratory Tests Test 06/09/21 16:29 06/09/21 21:18 06/10/21 07:21 06/10/21 11:34 Glucose (Fingerstick) 207 mg/dL (70-99) 101 mg/dL (70-99) 113 mg/dL (70-99) 67 mg/dL (70-99) Assessment and Plan Assessmemt and Plan Problems Medical Problems: (1) Chronic kidney disease with end stage 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 Justifications for Admission Other Justification LILI SCHAEFER MD Jun 10, 2021 12:20
--- NOTE | 2021-06-10 12:49 | PDOC ---
[facility] [facility] PROGRESS NOTE Date of Service DOS: DATE: 06/10/21 TIME: 12:47 Chief Complaint Chief Complaint weakness and debility, poor function Dialysis catheter malfunction ESRD on dialysis UTI History of A. fib CHF Diabetes Hypertension Hyperlipidemia History of Present Illness History of Present Illness 06/10, eating, feedign self but very weak, cannot sit up, lying too far back to eat well but refused to let me help her get propped up in bed to eat. needs PT and OT too weak to go home, will need skilled, prob long-term placement 06/09, not much change, needs skilled 06/08/2021: Afebrile. Patient denies any shortness of breath, nausea, vomiting, or diarrhea. She is COVID-19 positive, but due to lack of any symptoms I believe this PCR finding is residual from remote illness. She has tunneled hemodialysis catheter in place, and is scheduled for hemodialysis today. Due to positive COVID-19 status vascular surgery scheduled surgical revision of her fistula until 06/22/21. She does still complain of urinary urgency. Due to some stated weakness in difficulty getting around the house, I will have patient work with physical therapy evaluate for SNF. 06/08/2019 Patient seen and examined extent discussed with RN Chart reviewed She is scheduled to go to the OR tomorrow for left arm graft dialysis access 06/06/2021 Patient seen and examined Discussed with Dr. Phil Villarreal would like to put a fistula in the left arm perhaps in a week or 2 after the UTI has resolved Appreciate Dr. Villarreal input 06/06/2019 Patient seen and examined , discussed with RN, chart reviewed She is scheduled to go to IR today for evaluation of her malfunctioning dialysis cath Vitals/I&O Vitals/I&O: Vital Signs Date Time Temp Pulse Resp B/P (MAP) Pulse Ox O2 Delivery O2 Flow Rate FiO2 06/10/21 10:00 97.6 62 20 128/65 (86) 99 Room Air 97.6 I & O 06/09/21 06/09/21 06/10/21 15:00 23:00 07:00 Intake Total 240 ml 390 ml 90 ml Balance 240 ml 390 ml 90 ml Physical Exam General: Alert, Oriented X3 Heart: Regular rate Lungs: Clear Abdomen: Normal bowel sounds, Soft, No tenderness Extremities: Other Skin: Other Labs Labs: Laboratory Tests Test 06/09/21 16:29 06/09/21 21:18 06/10/21 07:21 06/10/21 11:34 Glucose (Fingerstick) 207 mg/dL (70-99) 101 mg/dL (70-99) 113 mg/dL (70-99) 67 mg/dL (70-99) Assessment and Plan Assessmemt and Plan Problems Medical Problems: (1) Chronic kidney disease with end stage 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 Justifications for Admission Other Justification LILI SCHAEFER MD Jun 10, 2021 12:49
[2021-06-10 15:00] VITALS: BP 122/64
[2021-06-10 19:00] VITALS: BP 115/61
[2021-06-10] MEDS: INSULIN GLARGINE SYRINGE. SQ SCH (21:00)
[2021-06-10] MEDS: ATORVASTATIN CALCIUM 40 MG TABLET. PO SCH (21:12)
[2021-06-10 23:00] VITALS: BP 138/74
[2021-06-11 03:00] VITALS: BP 126/69
[2021-06-11] MEDS: MIDODRINE 5 MG TABLET PO SCH ×3 (06:15→17:14)
[2021-06-11] MEDS: HEPARIN for SUB-Q USE 5,000 UNIT/ML VIAL. SQ SCH ×3 (06:18→20:47)
[2021-06-11 07:00] VITALS: BP 109/52
[2021-06-11] MEDS: INSULIN LISPRO 300 UNITS/3 ML VIAL. SQ SCH ×5 (08:00→17:00)
[2021-06-11] MEDS: FERROUS SULFATE 325 MG TABLET. PO SCH ×2 (08:18→16:41)
[2021-06-11] MEDS: ASPIRIN CHEWABLE 81 MG TABLET. PO SCH (08:18)
[2021-06-11] MEDS: LACTOBACILLUS RHAMNOSUS GG 1 CAPSULE. PO SCH ×2 (08:18→20:41)
[2021-06-11] MEDS: PANTOPRAZOLE 40 MG TABLET.DR. PO SCH (08:18)
[2021-06-11] MEDS: SENNOSIDES/DOCUSATE 8.6/50MG TABLET. PO SCH ×2 (08:18→20:41)
[2021-06-11] MEDS: AMOXICILLIN/K CLAV 500/125MG TABLET. PO SCH (08:18)
[2021-06-11] MEDS: NYSTATIN TOPICAL POWDER 15GM BOTTLE. TP SCH ×4 (08:19→20:45)
[2021-06-11] MEDS: FUROSEMIDE 40 MG TABLET. PO SCH (08:19)
[2021-06-11] MEDS ORDERED: ERGOCALCIFEROL (VITAMIN D2) 50,000 UNIT CAPSULE. PO SCH (09:00)
--- NOTE | 2021-06-11 09:47 | PDOC ---
DATE OF SERVICE DATE: 06/11/21 TIME: 09:47 SUBJECTIVE ROS No complaints , sitting up in chair OBJECTIVE Vital Signs Vital Signs Date Time Temp Pulse Resp B/P (MAP) Pulse Ox O2 Delivery O2 Flow Rate FiO2 06/11/21 07:00 98.0 74 18 109/52 (71) 97 Room Air 98.0 I & 0 Intake and Output 06/11/21 07:00 Intake Total 620 ml Balance 620 ml Intake Oral 620 ml # Voids 3 # Bowel Movements 1 PHYSICAL EXAM Physical Exam General Appearance: no apparent distress,resting comfortably Skin: warm Respiratory: bilateral CTA Heart: S1S2 Abdomen: soft, bowel sounds present Genitourinary: figueredo + Extremities: pulses present Neurology: alert DIAGNOSIS/ASSESSMENT Assessment & Plan ESRD- on HD MWF F @ [facility] , Dialysis today , Discussed treatment plan with [facility] . AVF Postponed 05/02 COVID positive , Vascular plans to do as OP CoVid Rapid- positive on 04/17 Hydronephrosis - S/P Bilateral Ureteral stents fu with Urology HX of PAfib Anemia - On BEATRICE ,Recd IV Venofer ; currently on Retacrit HTN- currently Low normal . DM II COMMENT/RELEVANT DATA Meds Current Medications Medications (Trade) Dose Ordered Sig/Angy Start Time Stop Time Status Last Admin Dose Admin Acetaminophen (Tylenol) 650 mg PRN QID PRN 06/04/21 18:45 Albumin Human 200 ml @ 200 mls/hr 1X PRN PRN 06/06/21 08:30 06/06/21 14:29 DC Amlodipine Besylate (Norvasc) 5 mg DAILY 06/05/21 09:00 06/05/21 14:34 DC Amoxicillin/ Clavulanate Potassium (Augmentin 500/ 125mg) 1 tab DAILY 06/06/21 17:00 06/11/21 08:18 1 TAB Aspirin (Aspirin Chewable) 81 mg DAILY 06/05/21 09:00 06/11/21 08:18 81 MG Atorvastatin Calcium (Lipitor) 40 mg QHS 06/04/21 21:00 06/10/21 21:12 40 MG Calcium Carbonate/ Glycine (Tums) 500 mg PRN Q3HRS PRN 06/04/21 15:30 06/05/21 21:17 500 MG Cefazolin Sodium 1 gm/Sodium Chloride 500 ml @ 500 mls/hr 1X ONCE 06/08/21 06:00 06/08/21 06:59 DC Cefazolin Sodium/ Dextrose 50 ml @ 100 mls/hr 1X PREOP PRN 06/08/21 06:00 06/08/21 18:00 DC Ceftriaxone Sodium (Rocephin) 1 gm Q24H 06/05/21 14:00 06/06/21 16:04 DC 06/06/21 15:54 1 GM Dextrose (Dextrose 50%-Water Syringe) 12.5 gm PRN Q15MIN PRN 06/05/21 00:45 Dextrose (Iv Dextrose 5%) 250 ml PRN Q15MIN PRN 06/05/21 00:45 Epoetin Romulo-epbx (RETACRIT for ESRD PTS) 10,000 unit MoWeFr@2100 06/06/21 21:00 06/08/21 21:16 10,000 UNIT Ergocalciferol (Vitamin D2) 50,000 unit WEEKLY 06/11/21 09:00 06/11/21 08:18 50,000 UNIT Fentanyl Citrate (Fentanyl 2ml Vial) 50 mcg PRN Q5MIN PRN 06/08/21 06:00 06/09/21 05:59 DC Ferrous Sulfate (Feosol) 325 mg BIDWMEALS 06/04/21 21:00 06/11/21 08:18 325 MG Furosemide (Lasix) 40 mg DAILY 06/05/21 09:00 06/11/21 08:19 40 MG Heparin Sodium (Porcine) (Heparin Sodium) 5,000 unit Q8HRS 06/04/21 22:00 06/11/21 06:18 5,000 UNIT Heparin Sodium (Porcine) 5000 unit/Sodium Chloride 505 ml @ 505 mls/hr 1X ONCE 06/08/21 06:00 06/08/21 06:59 DC Hydromorphone HCl (Dilaudid) 0.5 mg PRN Q10MIN PRN 06/08/21 06:00 06/09/21 05:59 DC Info (Non-Icu Electrolyte Protocol) 1 ea PRN DAILY PRN 06/04/21 15:30 Info (PHARMACY MONITORING -- do not chart) 1 each PRN DAILY PRN 06/08/21 10:30 Cancel Insulin Glargine (Lantus Syringe) 8 unit QHS 06/04/21 21:00 06/07/21 22:05 8 UNIT Insulin Human Lispro (HumaLOG) 0-7 UNITS TIDWMEALS 06/05/21 08:00 06/10/21 17:28 3 UNITS Lactobacillus Rhamnosus (Culturelle) 1 cap BID 06/04/21 21:00 06/11/21 08:18 1 CAP Lidocaine/ Epinephrine (LIDOCAINE 1%-EPI 1:100,000 Multi-Dose) 20 ml 1X ONCE 06/05/21 14:30 06/05/21 14:33 DC 06/05/21 14:30 9 ML Midazolam HCl (Versed) 2 mg 1X ONCE 06/05/21 14:30 06/05/21 14:33 DC 06/05/21 14:15 2 MG Midodrine (Proamatine) 5 mg [id number] 06/05/21 07:00 06/11/21 06:15 5 MG Morphine Sulfate (Morphine Sulfate) 1 mg PRN Q10MIN PRN 06/08/21 06:00 06/09/21 05:59 DC Nystatin (Nystop) 1 melissa QID 06/04/21 21:00 06/11/21 08:19 1 MELISSA Ondansetron HCl (Zofran) 4 mg PRN Q6HRS PRN 06/04/21 15:30 06/05/21 21:33 4 MG Pantoprazole Sodium (Protonix) 40 mg DAILYAC 06/05/21 07:30 06/11/21 08:18 40 MG Polyethylene Glycol (miraLAX PACKET) 17 gm DAILY PRN 06/04/21 18:30 06/07/21 22:03 17 GM Prochlorperazine Edisylate (Compazine) 5 mg PACU PRN PRN 06/08/21 06:00 06/09/21 05:59 DC Ringer's Solution 1,000 ml @ 30 mls/hr Q24H 06/08/21 06:00 06/08/21 17:59 DC Senna/Docusate Sodium (Senna Plus) 1 tab BID 06/04/21 21:00 06/11/21 08:18 1 TAB Sodium Chloride 1,000 ml @ 400 mls/hr Q2H30M PRN 06/08/21 10:30 06/08/21 22:29 DC Lab Laboratory Tests Test 06/10/21 11:34 06/10/21 16:31 06/10/21 21:23 06/11/21 08:00 Glucose (Fingerstick) 67 mg/dL (70-99) 158 mg/dL (70-99) 84 mg/dL (70-99) 109 mg/dL (70-99) Results All relevant outside records, renal labs, imaging studies, telemetry/EKG's were reviewed. Justicifation of Admission Dx: Justifications for Admission: Justification of Admission Dx: Yes Acute Renal Failure: RF Can't Be Managed Outpt Chronic Renal Failure: Renail Failure MEREDITH CULP MD Jun 11, 2021 09:47
[2021-06-11 11:00] VITALS: BP 117/73
--- NOTE | 2021-06-11 12:02 | PDOC ---
[employer] [facility] PROGRESS NOTE Date of Service DOS: DATE: 06/11/21 TIME: 12:00 Chief Complaint Chief Complaint weakness and debility, poor function Dialysis catheter malfunction ESRD on dialysis UTI History of A. fib CHF Diabetes Hypertension Hyperlipidemia History of Present Illness History of Present Illness 06/11: Patient seen and evaluated bedside. She is to have hemodialysis today at some point. To be reevaluated by vascular surgery for possible revision of chronic fistula some point this week. OT recommending home with home health when ready. consumer services consultant informed me that she has no halfway days. Some postural nausea/pain today when she sat up, alleviated with reclining. Suspect chronic mesenteric ischemia. 06/10, eating, feedign self but very weak, cannot sit up, lying too far back to eat well but refused to let me help her get propped up in bed to eat. needs PT and OT too weak to go home, will need skilled, prob long-term placement 06/09, not much change, needs skilled 06/08/2021: Afebrile. Patient denies any shortness of breath, nausea, vomiting, or diarrhea. She is COVID-19 positive, but due to lack of any symptoms I believe this PCR finding is residual from remote illness. She has tunneled hemodialysis catheter in place, and is scheduled for hemodialysis today. Due to positive COVID-19 status vascular surgery scheduled surgical revision of her fistula until 06/22/21. She does still complain of urinary urgency. Due to some stated weakness in difficulty getting around the house, I will have patient work with physical therapy evaluate for SNF. 06/08/2019 Patient seen and examined extent discussed with RN Chart reviewed She is scheduled to go to the OR tomorrow for left arm graft dialysis access 06/06/2021 Patient seen and examined Discussed with Dr. Phil Villarreal would like to put a fistula in the left arm perhaps in a week or 2 after the UTI has resolved Appreciate Dr. Villarreal input 06/06/2019 Patient seen and examined , discussed with RN, chart reviewed She is scheduled to go to IR today for evaluation of her malfunctioning dialysis cath Vitals/I&O Vitals/I&O: Vital Signs Date Time Temp Pulse Resp B/P (MAP) Pulse Ox O2 Delivery O2 Flow Rate FiO2 06/11/21 08:00 Room Air 06/11/21 07:00 98.0 74 18 109/52 (71) 97 98.0 I & O 06/10/21 06/10/21 06/11/21 15:00 23:00 07:00 Intake Total 120 ml 500 ml Balance 120 ml 500 ml Physical Exam General: Alert, Oriented X3 Heart: Regular rate Lungs: Clear Abdomen: Normal bowel sounds, Soft, No tenderness Extremities: Other Skin: Other Labs Labs: Laboratory Tests Test 06/10/21 16:31 06/10/21 21:23 06/11/21 08:00 06/11/21 11:37 Glucose (Fingerstick) 158 mg/dL (70-99) 84 mg/dL (70-99) 109 mg/dL (70-99) 201 mg/dL (70-99) Assessment and Plan Assessmemt and Plan Problems Medical Problems: (1) Chronic kidney disease with end stage 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 Medications: Current Medications Medications (Trade) Dose Ordered Sig/Angy Route PRN Reason Start Time Stop Time Status Last Admin Dose Admin Ergocalciferol (Vitamin D2) 50,000 unit WEEKLY PO 06/11/21 09:00 06/11/21 08:18 Justifications for Admission Other Justification TIAN NYE MD Jun 11, 2021 12:02
[2021-06-11] MEDS ORDERED: ALBUMIN HUMAN 25% 200 ML IV PRN (12:45)
[2021-06-11] MEDS ORDERED: 0.9 % SODIUM CHLORIDE 10 ML DISP.SYRIN. IV PRN ×2 (12:45)
[2021-06-11] MEDS ORDERED: IV NORMAL SALINE 1000ML BAG 1,000 ML IV PRN ×2 (12:45)
[2021-06-11] MEDS ORDERED: DIALYSIS PATIENT. MC PRN ×2 (12:45)
--- NOTE | 2021-06-11 13:06 | NUR ---
SW following. Discussed with RN, pt from home, room air, renal diet. Pt will discharge home with [facility] when medically stable. SW will continue to follow.
[2021-06-11 19:00] VITALS: BP_SYST 109; BP_SYST 121; BP_DIAS 61; BP_DIAS 62
[2021-06-11] MEDS: EPOETIN ALFA-EPBX for ESRD 20,000 UNIT/ML VIAL. SQ SCH (20:42)
[2021-06-11] MEDS: INSULIN GLARGINE SYRINGE. SQ SCH (20:44)
[2021-06-11] MEDS: ATORVASTATIN CALCIUM 40 MG TABLET. PO SCH (20:44)
[2021-06-11 23:00] VITALS: BP 109/62
[2021-06-12 03:27] VITALS: BP 131/69
[2021-06-12] MEDS: MIDODRINE 5 MG TABLET PO SCH ×3 (06:10→17:34)
[2021-06-12] MEDS: HEPARIN for SUB-Q USE 5,000 UNIT/ML VIAL. SQ SCH ×3 (06:14→21:14)
[2021-06-12 07:00] VITALS: BP 141/72
[2021-06-12] MEDS: INSULIN LISPRO 300 UNITS/3 ML VIAL. SQ SCH ×6 (08:00→17:00)
[2021-06-12] MEDS: NYSTATIN TOPICAL POWDER 15GM BOTTLE. TP SCH ×4 (08:17→21:05)
[2021-06-12] MEDS: ASPIRIN CHEWABLE 81 MG TABLET. PO SCH (08:17)
[2021-06-12] MEDS: AMOXICILLIN/K CLAV 500/125MG TABLET. PO SCH (08:17)
[2021-06-12] MEDS: SENNOSIDES/DOCUSATE 8.6/50MG TABLET. PO SCH ×2 (08:17→21:08)
[2021-06-12] MEDS: FUROSEMIDE 40 MG TABLET. PO SCH (08:17)
[2021-06-12] MEDS: PANTOPRAZOLE 40 MG TABLET.DR. PO SCH (08:17)
[2021-06-12] MEDS: FERROUS SULFATE 325 MG TABLET. PO SCH ×2 (08:17→17:30)
[2021-06-12] MEDS: LACTOBACILLUS RHAMNOSUS GG 1 CAPSULE. PO SCH ×2 (08:17→21:05)
--- NOTE | 2021-06-12 09:35 | PDOC ---
DATE OF SERVICE DATE: 06/12/21 TIME: 09:35 SUBJECTIVE ROS Vasovagal episode this morning Also some vomiting, BP's low , tachycardic initially Reports has good UOP (Not recorded) OBJECTIVE Vital Signs Vital Signs Date Time Temp Pulse Resp B/P (MAP) Pulse Ox O2 Delivery O2 Flow Rate FiO2 06/12/21 07:00 98.2 77 18 141/72 (95) 97 Room Air 98.2 I & 0 Intake and Output 06/12/21 07:00 Intake Total 100 ml Output Total 0 ml Balance 100 ml Intake Oral 100 ml Output Urine Total 0 ml # Voids 1 PHYSICAL EXAM Physical Exam General Appearance: no apparent distress,resting comfortably Skin: warm Respiratory: bilateral CTA Heart: S1S2 Abdomen: soft, bowel sounds present Genitourinary: figueredo + Extremities: pulses present Neurology: alert DIAGNOSIS/ASSESSMENT Assessment & Plan ESRD- on HD MWF F @ [facility] , No indication for dialysis today . Bladder scan- pt reports good UOP- Not recorded . If persistent Hypotension check [facility] Tunneled [facility] , replaced recently, still not functioning well . AVF Postponed 2/ COVID positive , Vascular plans to do as OP Hypotension- ? vasovagal . Recommend IV NS 500 mls , monitor. CoVid Rapid- positive on 04/17 Hydronephrosis - S/P Bilateral Ureteral stents fu with Urology HX of PAfib Anemia - On BEATRICE ,Recd IV Venofer ; currently on Retacrit HTN- currently Low normal . DM II COMMENT/RELEVANT DATA Meds Current Medications Medications (Trade) Dose Ordered Sig/Anyg Start Time Stop Time Status Last Admin Dose Admin Acetaminophen (Tylenol) 650 mg PRN QID PRN 06/04/21 18:45 Albumin Human 200 ml @ 200 mls/hr 1X PRN PRN 06/11/21 12:45 06/11/21 18:44 DC Amlodipine Besylate (Norvasc) 5 mg DAILY 06/05/21 09:00 06/05/21 14:34 DC Amoxicillin/ Clavulanate Potassium (Augmentin 500/ 125mg) 1 tab DAILY 06/06/21 17:00 06/12/21 08:17 1 TAB Aspirin (Aspirin Chewable) 81 mg DAILY 06/05/21 09:00 06/12/21 08:17 81 MG Atorvastatin Calcium (Lipitor) 40 mg QHS 06/04/21 21:00 06/11/21 20:44 40 MG Calcium Carbonate/ Glycine (Tums) 500 mg PRN Q3HRS PRN 06/04/21 15:30 06/05/21 21:17 500 MG Cefazolin Sodium 1 gm/Sodium Chloride 500 ml @ 500 mls/hr 1X ONCE 06/08/21 06:00 06/08/21 06:59 DC Cefazolin Sodium/ Dextrose (Ancef 2gm Premix) 2 gm STK-MED ONCE 06/08/21 06:00 06/11/21 12:35 DC Ceftriaxone Sodium (Rocephin) 1 gm Q24H 06/05/21 14:00 06/06/21 16:04 DC 06/06/21 15:54 1 GM Dextrose (Dextrose 50%-Water Syringe) 12.5 gm PRN Q15MIN PRN 06/05/21 00:45 Dextrose (Iv Dextrose 5%) 250 ml PRN Q15MIN PRN 06/05/21 00:45 Epoetin Romulo-epbx (RETACRIT for ESRD PTS) 10,000 unit MoWeFr@2100 06/06/21 21:00 06/11/21 20:42 10,000 UNIT Ergocalciferol (Vitamin D2) 50,000 unit WEEKLY 06/11/21 09:00 06/11/21 08:18 50,000 UNIT Fentanyl Citrate (Fentanyl 2ml Vial) 50 mcg PRN Q5MIN PRN 06/08/21 06:00 06/09/21 05:59 DC Ferrous Sulfate (Feosol) 325 mg BIDWMEALS 06/04/21 21:00 06/12/21 08:17 325 MG Furosemide (Lasix) 40 mg DAILY 06/05/21 09:00 06/12/21 08:17 40 MG Heparin Sodium (Porcine) (Heparin Sodium) 5,000 unit Q8HRS 06/04/21 22:00 06/12/21 06:14 5,000 UNIT Heparin Sodium (Porcine) 5000 unit/Sodium Chloride 505 ml @ 505 mls/hr 1X ONCE 06/08/21 06:00 06/08/21 06:59 DC Hydromorphone HCl (Dilaudid) 0.5 mg PRN Q10MIN PRN 06/08/21 06:00 06/09/21 05:59 DC Info (Non-Icu Electrolyte Protocol) 1 ea PRN DAILY PRN 06/04/21 15:30 Info (PHARMACY MONITORING -- do not chart) 1 each PRN DAILY PRN 06/11/21 12:45 Insulin Glargine (Lantus Syringe) 8 unit QHS 06/04/21 21:00 06/07/21 22:05 8 UNIT Insulin Human Lispro (HumaLOG) 0-7 UNITS TIDWMEALS 06/05/21 08:00 06/10/21 17:28 3 UNITS Lactobacillus Rhamnosus (Culturelle) 1 cap BID 06/04/21 21:00 06/12/21 08:17 1 CAP Lidocaine/ Epinephrine (LIDOCAINE 1%-EPI 1:100,000 Multi-Dose) 20 ml 1X ONCE 06/05/21 14:30 06/05/21 14:33 DC 06/05/21 14:30 9 ML Midazolam HCl (Versed) 2 mg 1X ONCE 06/05/21 14:30 06/05/21 14:33 DC 06/05/21 14:15 2 MG Midodrine (Proamatine) 5 mg [id number] 06/05/21 07:00 06/12/21 06:10 5 MG Morphine Sulfate (Morphine Sulfate) 1 mg PRN Q10MIN PRN 06/08/21 06:00 06/09/21 05:59 DC Nystatin (Nystop) 1 melissa QID 06/04/21 21:00 06/12/21 08:17 1 MELISSA Ondansetron HCl (Zofran) 4 mg PRN Q6HRS PRN 06/04/21 15:30 06/05/21 21:33 4 MG Pantoprazole Sodium (Protonix) 40 mg DAILYAC 06/05/21 07:30 06/12/21 08:17 40 MG Polyethylene Glycol (miraLAX PACKET) 17 gm DAILY PRN 06/04/21 18:30 06/07/21 22:03 17 GM Prochlorperazine Edisylate (Compazine) 5 mg PACU PRN PRN 06/08/21 06:00 06/09/21 05:59 DC Ringer's Solution 1,000 ml @ 30 mls/hr Q24H 06/08/21 06:00 06/08/21 17:59 DC Senna/Docusate Sodium (Senna Plus) 1 tab BID 06/04/21 21:00 06/12/21 08:17 1 TAB Sodium Chloride 1,000 ml @ 400 mls/hr Q2H30M PRN 06/11/21 12:45 06/12/21 00:44 DC Sodium Chloride (Normal Saline Flush) 10 ml 1X PRN PRN 06/11/21 12:45 06/12/21 12:44 Lab Laboratory Tests Test 06/11/21 11:37 06/11/21 20:35 06/12/21 08:06 Glucose (Fingerstick) 201 mg/dL (70-99) 110 mg/dL (70-99) 103 mg/dL (70-99) Results All relevant outside records, renal labs, imaging studies, telemetry/EKG's were reviewed. Justicifation of Admission Dx: Justifications for Admission: Justification of Admission Dx: Yes Acute Renal Failure: RF Can't Be Managed Outpt Chronic Renal Failure: Renail Failure MEREDITH CULP MD Jun 12, 2021 09:35
[2021-06-12] MEDS ORDERED: IV NORMAL SALINE 500ML BAG 500 ML IV ONE (10:15)
[2021-06-12 11:00] VITALS: BP 110/58
--- NOTE | 2021-06-12 11:46 | PDOC ---
[employer] PROGRESS NOTE Date of Service DOS: DATE: 06/12/21 TIME: 11:44 Chief Complaint Chief Complaint Weakness and debility, poor function Dialysis catheter malfunction ESRD on dialysis UTI History of A. fib CHF Diabetes Hypertension Hyperlipidemia History of Present Illness History of Present Illness 06/13/2019 Patient seen and examined Discussed with RN Chart reviewed Discussed with case management We are hoping to discharge with home health later today however she had a episode of hypotension and tachycardia Hope to discharge tomorrow instead we are giving her some IV fluids 06/11: Patient seen and evaluated bedside. She is to have hemodialysis today at some point. To be reevaluated by vascular surgery for possible revision of chronic fistula some point this week. OT recommending home with home health when ready. disability services coordinator informed me that she has no assisted days. Some postural nausea/pain today when she sat up, alleviated with reclining. Suspect chronic mesenteric ischemia. 06/10, eating, feedign self but very weak, cannot sit up, lying too far back to eat well but refused to let me help her get propped up in bed to eat. needs PT and OT too weak to go home, will need skilled, prob long-term placement 06/09, not much change, needs skilled 06/08/2021: Afebrile. Patient denies any shortness of breath, nausea, vomiting, or diarrhea. She is COVID-19 positive, but due to lack of any symptoms I believe this PCR finding is residual from remote illness. She has tunneled hemodialysis catheter in place, and is scheduled for hemodialysis today. Due to positive COVID-19 status vascular surgery scheduled surgical revision of her fistula until 06/22/21. She does still complain of urinary urgency. Due to some stated weakness in difficulty getting around the house, I will have patient work with physical therapy evaluate for SNF. 06/08/2019 Patient seen and examined extent discussed with RN Chart reviewed She is scheduled to go to the OR tomorrow for left arm graft dialysis access 06/06/2021 Patient seen and examined Discussed with Dr. Phil Villarreal would like to put a fistula in the left arm perhaps in a week or 2 after the UTI has resolved Appreciate Dr. Villarreal input 06/06/2019 Patient seen and examined , discussed with RN, chart reviewed She is scheduled to go to IR today for evaluation of her malfunctioning dialysis cath Vitals/I&O Vitals/I&O: Vital Signs Date Time Temp Pulse Resp B/P (MAP) Pulse Ox O2 Delivery O2 Flow Rate FiO2 06/12/21 08:00 Room Air 06/12/21 07:00 98.2 77 18 141/72 (95) 97 98.2 I & O 06/11/21 06/11/21 06/12/21 15:00 23:00 07:00 Intake Total 100 ml Output Total 0 ml Balance 100 ml 0 ml Physical Exam General: Alert, Oriented X3 Heart: Regular rate Lungs: Clear Abdomen: Normal bowel sounds, Soft, No tenderness Extremities: Other Skin: Other Labs Labs: Laboratory Tests Test 06/11/21 20:35 06/12/21 08:06 06/12/21 09:55 06/12/21 11:24 Glucose (Fingerstick) 110 mg/dL (70-99) 103 mg/dL (70-99) 237 mg/dL (70-99) 174 mg/dL (70-99) Assessment and Plan Assessmemt and Plan Problems Medical Problems: (1) Chronic kidney disease with end stage renal failure on dialysis Status: Acute (2) Encounter for dialysis catheter care Status: Acute Weakness and debility, poor function Dialysis catheter malfunction ESRD on dialysis UTI History of A. fib CHF Diabetes Hypertension Hyperlipidemia Plan Since she had an episode of hypotension and reflex tachycardia were going to give some IV fluid Hope to discharge tomorrow For now continue the following Home meds Dialysis per nephrology Trend labs PT OT Encourage p.o. intake Discharge tomorrow with home health if stable Comment Review of Relevant I have reviewed the following items edis (where applicable) has been applied. Medications: Current Medications Medications (Trade) Dose Ordered Sig/Angy Route PRN Reason Start Time Stop Time Status Last Admin Dose Admin Sodium Chloride 500 ml @ 500 mls/hr 1X ONCE IV 06/12/21 10:15 06/12/21 11:14 DC 06/12/21 10:18 Justifications for Admission Other Justification NARCISO SHIELDS III DO Jun 12, 2021 11:46
--- NOTE | 2021-06-12 13:02 | NUR ---
SW following. Discussed with RN, SW discussed with [facility] - they are going to check if pt has met her out of pocket max to cover SNF. Awaiting outcome. Pt not medically ready for discharge today. SW will continue to follow.
[2021-06-12 15:00] VITALS: BP 133/63
--- NOTE | 2021-06-12 15:42 | NUR ---
Assumed patient care at 1500. In agreement with most recent nursing assessment. Will continue to monitor.
[2021-06-12 19:00] VITALS: BP 120/64
[2021-06-12] MEDS: ATORVASTATIN CALCIUM 40 MG TABLET. PO SCH (21:04)
[2021-06-12] MEDS: INSULIN GLARGINE SYRINGE. SQ SCH (21:13)
[2021-06-12 23:00] VITALS: BP 141/69
[2021-06-13 02:47] VITALS: BP 122/51
[2021-06-13] MEDS: HEPARIN for SUB-Q USE 5,000 UNIT/ML VIAL. SQ SCH ×3 (06:34→21:13)
[2021-06-13 07:00] VITALS: BP 124/62
[2021-06-13] MEDS: MIDODRINE 5 MG TABLET PO SCH ×3 (07:00→17:39)
[2021-06-13] MEDS: INSULIN LISPRO 300 UNITS/3 ML VIAL. SQ SCH ×6 (07:58→17:00)
[2021-06-13] MEDS: FERROUS SULFATE 325 MG TABLET. PO SCH ×2 (08:00→17:40)
[2021-06-13] MEDS: PANTOPRAZOLE 40 MG TABLET.DR. PO SCH (08:02)
[2021-06-13] MEDS ORDERED: DIALYSIS PATIENT. MC PRN ×2 (08:30)
[2021-06-13] MEDS ORDERED: ALBUMIN HUMAN 25% 200 ML IV PRN (08:30)
[2021-06-13] MEDS ORDERED: 0.9 % SODIUM CHLORIDE 10 ML DISP.SYRIN. IV PRN ×2 (08:30)
[2021-06-13] MEDS ORDERED: IV NORMAL SALINE 1000ML BAG 1,000 ML IV PRN ×2 (08:30)
[2021-06-13] MEDS: SENNOSIDES/DOCUSATE 8.6/50MG TABLET. PO SCH ×2 (09:00→21:11)
[2021-06-13] MEDS: NYSTATIN TOPICAL POWDER 15GM BOTTLE. TP SCH ×4 (09:00→21:06)
[2021-06-13] MEDS: ASPIRIN CHEWABLE 81 MG TABLET. PO SCH (09:00)
[2021-06-13] MEDS: LACTOBACILLUS RHAMNOSUS GG 1 CAPSULE. PO SCH ×2 (09:00→21:05)
[2021-06-13] MEDS: AMOXICILLIN/K CLAV 500/125MG TABLET. PO SCH (09:00)
[2021-06-13 09:17] LABS: BASO % 1 % (0-3); EOS # 0.3 x10^3/uL (0.0-0.7); EOS % 6 % (0-3); HEMATOCRIT 28.6 % (36.0-47.0); HEMOGLOBIN 9.2 g/dL (12.0-15.5); LYMPH # 1.3 x10^3/uL (1.0-4.8); LYMPH % 26 % (24-48); MEAN CORPUSCULAR HEMOGLOBIN 31 pg (25-35); MEAN CORPUSCULAR HGB CONC 32 g/dL (31-37); MEAN CORPUSCULAR VOLUME 96 fL (79-100); MONO # 0.3 x10^3/uL (0.0-1.1); MONO % 7 % (0-9); NEUT # 2.9 x10^3/uL (1.8-7.7); NEUT % 61 % (31-73); PLATELET COUNT 320 x10^3/uL (140-400); RED BLOOD COUNT 2.98 x10^6/uL (3.50-5.40); RED CELL DISTRIBUTION WIDTH 17.4 % (11.5-14.5); WHITE BLOOD COUNT 4.9 x10^3/uL (4.0-11.0)
[2021-06-13 09:25] LABS: CREATININE 2.3 mg/dL (0.6-1.0); GFR 20.4; PHOSPHORUS 2.5 mg/dL (2.6-4.7); POTASSIUM 3.2 mmol/L (3.5-5.1)
--- NOTE | 2021-06-13 09:43 | PDOC ---
[employer] PROGRESS NOTE Date of Service DOS: DATE: 06/13/21 TIME: 09:39 Chief Complaint Chief Complaint Weakness and debility, poor function Dialysis catheter malfunction ESRD on dialysis UTI History of A. fib CHF Diabetes Hypertension Hyperlipidemia History of Present Illness History of Present Illness 06/13/2021: Patient seen in dialysis. Had a vasovagal episode yesterday after getting home from the toilet after a bowel movement. She felt better after laying down. States that this happens occasionally, but this episode seems to have lasted longer. 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 She is agreeable to SNF, but insurance cannot pay she will go home with home health. 06/13/2019 Patient seen and examined Discussed with RN Chart reviewed Discussed with case management We are hoping to discharge with home health later today however she had a episode of hypotension and tachycardia Hope to discharge tomorrow instead we are giving her some IV fluids 06/11: Patient seen and evaluated bedside. She is to have hemodialysis today at some point. To be reevaluated by vascular surgery for possible revision of chronic fistula some point this week. OT recommending home with home health when ready. supervisor customer services informed me that she has no fci days. Some postural nausea/pain today when she sat up, alleviated with reclining. Suspect chronic mesenteric ischemia. 06/10, eating, feedign self but very weak, cannot sit up, lying too far back to eat well but refused to let me help her get propped up in bed to eat. needs PT and OT too weak to go home, will need skilled, prob long-term placement 06/09, not much change, needs skilled 06/08/2021: Afebrile. Patient denies any shortness of breath, nausea, vomiting, or diarrhea. She is COVID-19 positive, but due to lack of any symptoms I believe this PCR finding is residual from remote illness. She has tunneled hemodialysis catheter in place, and is scheduled for hemodialysis today. Due to positive COVID-19 status vascular surgery scheduled surgical revision of her fistula until 06/22/21. She does still complain of urinary urgency. Due to some stated weakness in difficulty getting around the house, I will have patient work with physical therapy evaluate for SNF. 06/08/2019 Patient seen and examined extent discussed with RN Chart reviewed She is scheduled to go to the OR tomorrow for left arm graft dialysis access 06/06/2021 Patient seen and examined Discussed with Dr. Phil Villarreal would like to put a fistula in the left arm perhaps in a week or 2 after the UTI has resolved Appreciate Dr. Villarreal input 06/06/2019 Patient seen and examined , discussed with RN, chart reviewed She is scheduled to go to IR today for evaluation of her malfunctioning dialysis cath Vitals/I&O Vitals/I&O: Vital Signs Date Time Temp Pulse Resp B/P (MAP) Pulse Ox O2 Delivery O2 Flow Rate FiO2 06/13/21 07:00 97.7 72 16 124/62 (82) 98 Room Air 97.7 I & O 06/12/21 06/12/21 06/13/21 15:00 23:00 07:00 Intake Total 200 ml 200 ml 550 ml Balance 200 ml 200 ml 550 ml Physical Exam General: Alert, Oriented X3 Heart: Regular rate Lungs: Clear Abdomen: Normal bowel sounds, Soft, No tenderness Extremities: Other Skin: Other Labs Labs: Laboratory Tests Test 06/12/21 09:55 06/12/21 11:24 06/12/21 17:15 06/12/21 21:08 Glucose (Fingerstick) 237 mg/dL (70-99) 174 mg/dL (70-99) 153 mg/dL (70-99) 110 mg/dL (70-99) Test 06/13/21 07:17 06/13/21 08:45 Glucose (Fingerstick) 90 mg/dL (70-99) White Blood Count 4.9 x10^3/uL (4.0-11.0) Red Blood Count 2.98 x10^6/uL (3.50-5.40) Hemoglobin 9.2 g/dL (12.0-15.5) Hematocrit 28.6 % (36.0-47.0) Mean Corpuscular Volume 96 fL (79-100) Mean Corpuscular Hemoglobin 31 pg (25-35) Mean Corpuscular Hemoglobin Concent 32 g/dL (31-37) Red Cell Distribution Width 17.4 % (11.5-14.5) Platelet Count 320 x10^3/uL (140-400) Neutrophils (%) (Auto) 61 % (31-73) Lymphocytes (%) (Auto) 26 % (24-48) Monocytes (%) (Auto) 7 % (0-9) Eosinophils (%) (Auto) 6 % (0-3) Basophils (%) (Auto) 1 % (0-3) Neutrophils # (Auto) 2.9 x10^3/uL (1.8-7.7) Lymphocytes # (Auto) 1.3 x10^3/uL (1.0-4.8) Monocytes # (Auto) 0.3 x10^3/uL (0.0-1.1) Eosinophils # (Auto) 0.3 x10^3/uL (0.0-0.7) Basophils # (Auto) 0.0 x10^3/uL (0.0-0.2) Sodium Level 141 mmol/L (136-145) Potassium Level 3.2 mmol/L (3.5-5.1) Chloride Level 104 mmol/L (98-107) Carbon Dioxide Level 32 mmol/L (21-32) Anion Gap 5 (6-14) Blood Urea Nitrogen 13 mg/dL (7-20) Creatinine 2.3 mg/dL (0.6-1.0) Estimated GFR (Cockcroft-Gault) 20.4 Glucose Level 103 mg/dL (70-99) Calcium Level 8.0 mg/dL (8.5-10.1) Phosphorus Level 2.5 mg/dL (2.6-4.7) Albumin 2.0 g/dL (3.4-5.0) Assessment and Plan Assessmemt and Plan Problems Medical Problems: (1) Chronic kidney disease with end stage 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 Medications: Current Medications Medications (Trade) Dose Ordered Sig/Angy Route PRN Reason Start Time Stop Time Status Last Admin Dose Admin Sodium Chloride 500 ml @ 500 mls/hr 1X ONCE IV 06/12/21 10:15 06/12/21 11:14 DC 06/12/21 10:18 Justifications for Admission Other Justification TIAN NYE MD Jun 13, 2021 09:43
--- NOTE | 2021-06-13 10:23 | PDOC ---
DATE OF SERVICE DATE: 06/13/21 TIME: 10:19 SUBJECTIVE ROS States feeling better, No vomiting, No Dizziness . Denies SOB OBJECTIVE Vital Signs Vital Signs Date Time Temp Pulse Resp B/P (MAP) Pulse Ox O2 Delivery O2 Flow Rate FiO2 06/13/21 08:00 Room Air 06/13/21 07:00 97.7 72 16 124/62 (82) 98 97.7 I & 0 Intake and Output 06/13/21 07:00 Intake Total 950 ml Balance 950 ml Intake Oral 950 ml # Voids 5 # Bowel Movements 3 PHYSICAL EXAM Physical Exam General Appearance: no apparent distress,resting comfortably Skin: warm Respiratory: bilateral CTA Heart: S1S2 Abdomen: soft, bowel sounds present Genitourinary: figueredo + Extremities: pulses present Neurology: alert DIAGNOSIS/ASSESSMENT Assessment & Plan DIAGNOSIS/ASSESSMENT Assessment & Plan ESRD- on HD MWF F @ [facility] , Seen during dialysis , tolerating well, No complaints. Continue as ordered, dw DRN . Access Tunneled HDC functioning well per DRn AVF Postponed 05/02 COVID positive , Vascular plans to do as OP Hypotension- ? vasovagal 06/12, given IVF Resolved . Ordered bladder scan- Not sure if done CoVid Rapid- positive on 04/17 Hydronephrosis - S/P Bilateral Ureteral stents fu with Urology HX of PAfib Anemia - On BEATRICE ,Recd IV Venofer ; currently on Retacrit HTN- currently Low normal . DM II COMMENT/RELEVANT DATA Meds Current Medications Medications (Trade) Dose Ordered Sig/Angy Start Time Stop Time Status Last Admin Dose Admin Acetaminophen (Tylenol) 650 mg PRN QID PRN 06/04/21 18:45 Albumin Human 200 ml @ 200 mls/hr 1X PRN PRN 06/13/21 08:30 06/13/21 14:29 Amlodipine Besylate (Norvasc) 5 mg DAILY 06/05/21 09:00 06/05/21 14:34 DC Amoxicillin/ Clavulanate Potassium (Augmentin 500/ 125mg) 1 tab DAILY 06/06/21 17:00 06/12/21 08:17 1 TAB Aspirin (Aspirin Chewable) 81 mg DAILY 06/05/21 09:00 06/12/21 08:17 81 MG Atorvastatin Calcium (Lipitor) 40 mg QHS 06/04/21 21:00 06/12/21 21:04 40 MG Calcium Carbonate/ Glycine (Tums) 500 mg PRN Q3HRS PRN 06/04/21 15:30 06/05/21 21:17 500 MG Cefazolin Sodium 1 gm/Sodium Chloride 500 ml @ 500 mls/hr 1X ONCE 06/08/21 06:00 06/08/21 06:59 DC Cefazolin Sodium/ Dextrose (Ancef 2gm Premix) 2 gm STK-MED ONCE 06/08/21 06:00 06/11/21 12:35 DC Ceftriaxone Sodium (Rocephin) 1 gm Q24H 06/05/21 14:00 06/06/21 16:04 DC 06/06/21 15:54 1 GM Dextrose (Dextrose 50%-Water Syringe) 12.5 gm PRN Q15MIN PRN 06/05/21 00:45 Dextrose (Iv Dextrose 5%) 250 ml PRN Q15MIN PRN 06/05/21 00:45 Epoetin Romulo-epbx (RETACRIT for ESRD PTS) 10,000 unit MoWeFr@2100 06/06/21 21:00 06/11/21 20:42 10,000 UNIT Ergocalciferol (Vitamin D2) 50,000 unit WEEKLY 06/11/21 09:00 06/11/21 08:18 50,000 UNIT Fentanyl Citrate (Fentanyl 2ml Vial) 50 mcg PRN Q5MIN PRN 06/08/21 06:00 06/09/21 05:59 DC Ferrous Sulfate (Feosol) 325 mg BIDWMEALS 06/04/21 21:00 06/12/21 17:30 325 MG Furosemide (Lasix) 40 mg DAILY 06/05/21 09:00 06/12/21 11:39 DC 06/12/21 08:17 40 MG Heparin Sodium (Porcine) (Heparin Sodium) 5,000 unit Q8HRS 06/04/21 22:00 06/13/21 06:34 5,000 UNIT Heparin Sodium (Porcine) 5000 unit/Sodium Chloride 505 ml @ 505 mls/hr 1X ONCE 06/08/21 06:00 06/08/21 06:59 DC Hydromorphone HCl (Dilaudid) 0.5 mg PRN Q10MIN PRN 06/08/21 06:00 06/09/21 05:59 DC Info (Non-Icu Electrolyte Protocol) 1 ea PRN DAILY PRN 06/04/21 15:30 Info (PHARMACY MONITORING -- do not chart) 1 each PRN DAILY PRN 06/13/21 08:30 Insulin Glargine (Lantus Syringe) 8 unit QHS 06/04/21 21:00 06/12/21 21:13 8 UNIT Insulin Human Lispro (HumaLOG) 0-7 UNITS TIDWMEALS 06/05/21 08:00 06/10/21 17:28 3 UNITS Lactobacillus Rhamnosus (Culturelle) 1 cap BID 06/04/21 21:00 06/12/21 21:05 1 CAP Lidocaine/ Epinephrine (LIDOCAINE 1%-EPI 1:100,000 Multi-Dose) 20 ml 1X ONCE 06/05/21 14:30 06/05/21 14:33 DC 06/05/21 14:30 9 ML Midazolam HCl (Versed) 2 mg 1X ONCE 06/05/21 14:30 06/05/21 14:33 DC 06/05/21 14:15 2 MG Midodrine (Proamatine) 5 mg [id number] 06/05/21 07:00 06/12/21 06:10 5 MG Morphine Sulfate (Morphine Sulfate) 1 mg PRN Q10MIN PRN 06/08/21 06:00 06/09/21 05:59 DC Nystatin (Nystop) 1 melissa QID 06/04/21 21:00 06/12/21 21:05 1 MELISSA Ondansetron HCl (Zofran) 4 mg PRN Q6HRS PRN 06/04/21 15:30 06/05/21 21:33 4 MG Pantoprazole Sodium (Protonix) 40 mg DAILYAC 06/05/21 07:30 06/13/21 08:02 40 MG Polyethylene Glycol (miraLAX PACKET) 17 gm DAILY PRN 06/04/21 18:30 06/07/21 22:03 17 GM Prochlorperazine Edisylate (Compazine) 5 mg PACU PRN PRN 06/08/21 06:00 06/09/21 05:59 DC Ringer's Solution 1,000 ml @ 30 mls/hr Q24H 06/08/21 06:00 06/08/21 17:59 DC Senna/Docusate Sodium (Senna Plus) 1 tab BID 06/04/21 21:00 06/12/21 08:17 1 TAB Sodium Chloride 1,000 ml @ 400 mls/hr Q2H30M PRN 06/13/21 08:30 06/13/21 20:29 Sodium Chloride (Normal Saline Flush) 10 ml 1X PRN PRN 06/13/21 08:30 06/14/21 08:29 Lab Laboratory Tests Test 06/12/21 11:24 06/12/21 17:15 06/12/21 21:08 06/13/21 07:17 Glucose (Fingerstick) 174 mg/dL (70-99) 153 mg/dL (70-99) 110 mg/dL (70-99) 90 mg/dL (70-99) Test 06/13/21 08:45 White Blood Count 4.9 x10^3/uL (4.0-11.0) Red Blood Count 2.98 x10^6/uL (3.50-5.40) Hemoglobin 9.2 g/dL (12.0-15.5) Hematocrit 28.6 % (36.0-47.0) Mean Corpuscular Volume 96 fL (79-100) Mean Corpuscular Hemoglobin 31 pg (25-35) Mean Corpuscular Hemoglobin Concent 32 g/dL (31-37) Red Cell Distribution Width 17.4 % (11.5-14.5) Platelet Count 320 x10^3/uL (140-400) Neutrophils (%) (Auto) 61 % (31-73) Lymphocytes (%) (Auto) 26 % (24-48) Monocytes (%) (Auto) 7 % (0-9) Eosinophils (%) (Auto) 6 % (0-3) Basophils (%) (Auto) 1 % (0-3) Neutrophils # (Auto) 2.9 x10^3/uL (1.8-7.7) Lymphocytes # (Auto) 1.3 x10^3/uL (1.0-4.8) Monocytes # (Auto) 0.3 x10^3/uL (0.0-1.1) Eosinophils # (Auto) 0.3 x10^3/uL (0.0-0.7) Basophils # (Auto) 0.0 x10^3/uL (0.0-0.2) Sodium Level 141 mmol/L (136-145) Potassium Level 3.2 mmol/L (3.5-5.1) Chloride Level 104 mmol/L (98-107) Carbon Dioxide Level 32 mmol/L (21-32) Anion Gap 5 (6-14) Blood Urea Nitrogen 13 mg/dL (7-20) Creatinine 2.3 mg/dL (0.6-1.0) Estimated GFR (Cockcroft-Gault) 20.4 Glucose Level 103 mg/dL (70-99) Calcium Level 8.0 mg/dL (8.5-10.1) Phosphorus Level 2.5 mg/dL (2.6-4.7) Albumin 2.0 g/dL (3.4-5.0) Results All relevant outside records, renal labs, imaging studies, telemetry/EKG's were reviewed. Justicifation of Admission Dx: Justifications for Admission: Justification of Admission Dx: Yes Acute Renal Failure: RF Can't Be Managed Outpt Chronic Renal Failure: Renail Failure MEREDITH CULP MD Jun 13, 2021 10:23
--- NOTE | 2021-06-13 10:36 | NUR ---
SS following up with discharge planning. SS reviewed pt chart and discussed with pt RN. Pt is currently on room air. COVID19 recovered. Pt has outpatient hemodialysis at [facility], ; fax [phone], Friday, Friday, and Friday 3rd shift. Pt was receiving transportation to and from dialysis through [facility]. Pt current on services with [facility], ; fax [phone]. PT/OT recommended fpc unit. Referral was sent to [facility], ; fax [phone]. Pt declined by [facility]. Pt in co-pay days for fpc unit. SS met with pt and discussed. Pt has not been approved for Medicaid at this time and cannot afford co-pay or LTC placement. Pt requesting home with home healthcare. SS discussed with Marlys from [facility] and left message for SW at [facility]. Pt's RN notified. SS will continue to follow for discharge planning. Addendum: 06/13/21 at 1106 by JADA DO SS SS informed that SW from [facility] has arranged [facility] for pt. SS informed that Medicaid application is pending but pt has $[id number] life insurance policy and mortgage on her home and probable wont get approved for Medicaid. Pt accepted on services with [facility].
[2021-06-13 11:00] VITALS: BP 104/54
[2021-06-13 15:00] VITALS: BP 104/56
[2021-06-13] MEDS ORDERED: POTASSIUM CHLORIDE 20 MEQ TABLET.ER. PO ONE (16:30)
[2021-06-13 19:00] VITALS: BP 123/60
[2021-06-13] MEDS: ATORVASTATIN CALCIUM 40 MG TABLET. PO SCH (21:05)
[2021-06-13] MEDS: EPOETIN ALFA-EPBX for ESRD 20,000 UNIT/ML VIAL. SQ SCH (21:05)
[2021-06-13] MEDS: INSULIN GLARGINE SYRINGE. SQ SCH (21:12)
[2021-06-13 23:00] VITALS: BP 121/66
[2021-06-14 03:00] VITALS: BP 125/64
[2021-06-14] MEDS: HEPARIN for SUB-Q USE 5,000 UNIT/ML VIAL. SQ SCH ×2 (05:41→14:00)
[2021-06-14 07:00] VITALS: BP 99/54
[2021-06-14] MEDS: INSULIN LISPRO 300 UNITS/3 ML VIAL. SQ SCH ×4 (08:00→12:53)
[2021-06-14] MEDS: NYSTATIN TOPICAL POWDER 15GM BOTTLE. TP SCH ×2 (09:00→12:54)
--- NOTE | 2021-06-14 09:18 | PDOC ---
DATE OF SERVICE DATE: 06/14/21 TIME: 09:15 SUBJECTIVE ROS States feeling better, No vomiting, No Dizziness . Denies SOB OBJECTIVE Vital Signs Vital Signs Date Time Temp Pulse Resp B/P (MAP) Pulse Ox O2 Delivery O2 Flow Rate FiO2 06/14/21 03:00 98.3 80 16 125/64 (84) 98 Room Air 98.3 I & 0 Intake and Output 06/14/21 07:00 Intake Total 1160 ml Output Total 0 ml Balance 1160 ml Intake Oral 1160 ml Output Urine Total 0 ml # Voids 2 PHYSICAL EXAM Physical Exam General Appearance: no apparent distress,resting comfortably Skin: warm Respiratory: bilateral CTA Heart: S1S2 Abdomen: soft, bowel sounds present Genitourinary: figueredo + Extremities: pulses present Neurology: alert DIAGNOSIS/ASSESSMENT Assessment & Plan ESRD- on HD MWF F @ [facility] , Currently no indication for dialysis today Access Tunneled HDC functioning well per DRn AVF Postponed 05/02 COVID positive , Vascular plans to do as OP Hypotension- ? vasovagal 06/12, given IVF Resolved CoVid Rapid- positive on 04/17 Hydronephrosis - S/P Bilateral Ureteral stents fu with Urology HX of PAfib Anemia - On BEATRICE ,Recd IV Venofer ; currently on Retacrit HTN- currently Low normal . DM II COMMENT/RELEVANT DATA Meds Current Medications Medications (Trade) Dose Ordered Sig/Angy Start Time Stop Time Status Last Admin Dose Admin Acetaminophen (Tylenol) 650 mg PRN QID PRN 06/04/21 18:45 Albumin Human 200 ml @ 200 mls/hr 1X PRN PRN 06/13/21 08:30 06/13/21 14:29 DC Amlodipine Besylate (Norvasc) 5 mg DAILY 06/05/21 09:00 06/05/21 14:34 DC Amoxicillin/ Clavulanate Potassium (Augmentin 500/ 125mg) 1 tab DAILY 06/06/21 17:00 06/12/21 08:17 1 TAB Aspirin (Aspirin Chewable) 81 mg DAILY 06/05/21 09:00 06/12/21 08:17 81 MG Atorvastatin Calcium (Lipitor) 40 mg QHS 06/04/21 21:00 06/13/21 21:05 40 MG Calcium Carbonate/ Glycine (Tums) 500 mg PRN Q3HRS PRN 06/04/21 15:30 06/05/21 21:17 500 MG Cefazolin Sodium 1 gm/Sodium Chloride 500 ml @ 500 mls/hr 1X ONCE 06/08/21 06:00 06/08/21 06:59 DC Cefazolin Sodium/ Dextrose (Ancef 2gm Premix) 2 gm STK-MED ONCE 06/08/21 06:00 06/11/21 12:35 DC Ceftriaxone Sodium (Rocephin) 1 gm Q24H 06/05/21 14:00 06/06/21 16:04 DC 06/06/21 15:54 1 GM Dextrose (Dextrose 50%-Water Syringe) 12.5 gm PRN Q15MIN PRN 06/05/21 00:45 Dextrose (Iv Dextrose 5%) 250 ml PRN Q15MIN PRN 06/05/21 00:45 Epoetin Romulo-epbx (RETACRIT for ESRD PTS) 10,000 unit MoWeFr@2100 06/06/21 21:00 06/13/21 21:05 10,000 UNIT Ergocalciferol (Vitamin D2) 50,000 unit WEEKLY 06/11/21 09:00 06/11/21 08:18 50,000 UNIT Fentanyl Citrate (Fentanyl 2ml Vial) 50 mcg PRN Q5MIN PRN 06/08/21 06:00 06/09/21 05:59 DC Ferrous Sulfate (Feosol) 325 mg BIDWMEALS 06/04/21 21:00 06/13/21 17:40 325 MG Furosemide (Lasix) 40 mg DAILY 06/05/21 09:00 06/12/21 11:39 DC 06/12/21 08:17 40 MG Heparin Sodium (Porcine) (Heparin Sodium) 5,000 unit Q8HRS 06/04/21 22:00 06/14/21 05:41 5,000 UNIT Heparin Sodium (Porcine) 5000 unit/Sodium Chloride 505 ml @ 505 mls/hr 1X ONCE 06/08/21 06:00 06/08/21 06:59 DC Hydromorphone HCl (Dilaudid) 0.5 mg PRN Q10MIN PRN 06/08/21 06:00 06/09/21 05:59 DC Info (Non-Icu Electrolyte Protocol) 1 ea PRN DAILY PRN 06/04/21 15:30 Info (PHARMACY MONITORING -- do not chart) 1 each PRN DAILY PRN 06/13/21 08:30 Insulin Glargine (Lantus Syringe) 8 unit QHS 06/04/21 21:00 06/13/21 21:12 8 UNIT Insulin Human Lispro (HumaLOG) 0-7 UNITS TIDWMEALS 06/05/21 08:00 06/10/21 17:28 3 UNITS Lactobacillus Rhamnosus (Culturelle) 1 cap BID 06/04/21 21:00 06/13/21 21:05 1 CAP Lidocaine/ Epinephrine (LIDOCAINE 1%-EPI 1:100,000 Multi-Dose) 20 ml 1X ONCE 06/05/21 14:30 06/05/21 14:33 DC 06/05/21 14:30 9 ML Midazolam HCl (Versed) 2 mg 1X ONCE 06/05/21 14:30 06/05/21 14:33 DC 06/05/21 14:15 2 MG Midodrine (Proamatine) 5 mg [id number] 06/05/21 07:00 06/13/21 17:39 5 MG Morphine Sulfate (Morphine Sulfate) 1 mg PRN Q10MIN PRN 06/08/21 06:00 06/09/21 05:59 DC Nystatin (Nystop) 1 melissa QID 06/04/21 21:00 06/13/21 21:06 1 MELISSA Ondansetron HCl (Zofran) 4 mg PRN Q6HRS PRN 06/04/21 15:30 06/05/21 21:33 4 MG Pantoprazole Sodium (Protonix) 40 mg DAILYAC 06/05/21 07:30 06/13/21 08:02 40 MG Polyethylene Glycol (miraLAX PACKET) 17 gm DAILY PRN 06/04/21 18:30 06/07/21 22:03 17 GM Potassium Chloride (Klor-Con) 40 meq 1X ONCE 06/13/21 16:30 06/13/21 16:31 DC 06/13/21 17:39 40 MEQ Prochlorperazine Edisylate (Compazine) 5 mg PACU PRN PRN 06/08/21 06:00 06/09/21 05:59 DC Ringer's Solution 1,000 ml @ 30 mls/hr Q24H 06/08/21 06:00 06/08/21 17:59 DC Senna/Docusate Sodium (Senna Plus) 1 tab BID 06/04/21 21:00 06/12/21 08:17 1 TAB Sodium Chloride 1,000 ml @ 400 mls/hr Q2H30M PRN 06/13/21 08:30 06/13/21 20:29 DC Sodium Chloride (Normal Saline Flush) 10 ml 1X PRN PRN 06/13/21 08:30 06/14/21 08:29 DC Lab Laboratory Tests Test 06/13/21 12:13 06/13/21 16:41 06/13/21 20:25 06/14/21 07:03 Glucose (Fingerstick) 103 mg/dL (70-99) 141 mg/dL (70-99) 198 mg/dL (70-99) 122 mg/dL (70-99) Results All relevant outside records, renal labs, imaging studies, telemetry/EKG's were reviewed. Justicifation of Admission Dx: Justifications for Admission: Justification of Admission Dx: Yes Acute Renal Failure: RF Can't Be Managed Outpt Chronic Renal Failure: Renail Failure MEREDITH CULP MD Jun 14, 2021 09:18
[2021-06-14] MEDS: LACTOBACILLUS RHAMNOSUS GG 1 CAPSULE. PO SCH (10:14)
[2021-06-14] MEDS: FERROUS SULFATE 325 MG TABLET. PO SCH (10:15)
[2021-06-14] MEDS: AMOXICILLIN/K CLAV 500/125MG TABLET. PO SCH (10:15)
[2021-06-14] MEDS: SENNOSIDES/DOCUSATE 8.6/50MG TABLET. PO SCH (10:15)
[2021-06-14] MEDS: MIDODRINE 5 MG TABLET PO SCH ×2 (10:15→12:54)
[2021-06-14] MEDS: ASPIRIN CHEWABLE 81 MG TABLET. PO SCH (10:15)
[2021-06-14] MEDS: PANTOPRAZOLE 40 MG TABLET.DR. PO SCH (10:15)
[2021-06-14 11:00] VITALS: BP 118/55
--- NOTE | 2021-06-14 11:03 | NUR ---
MIGNON following. Discussed with RN, pt from home, will discharge home with [facility] possibly today. MIGNON will continue to follow. Addendum: 06/14/21 at 1415 by CALOS CROW Discharge orders faxed to [facility]. MIGNON arranged transportation with [facility] for between [phone]. Pt's address is actually [address] [place] [address], [id number]. MIGNON made hotline report (Intake ID# [id number]) due to poor support and unsafe discharge for pt. Pt is a high risk readmission.
[2021-06-14 12:54] VITALS: BP 118/55
--- NOTE | 2021-06-14 13:05 | PDOC ---
[employer] PROGRESS NOTE Date of Service DOS: DATE: 06/14/21 TIME: 13:03 Chief Complaint Chief Complaint Weakness and debility, poor function Dialysis catheter malfunction ESRD on dialysis UTI History of A. fib CHF Diabetes Hypertension Hyperlipidemia History of Present Illness History of Present Illness 06/14/2021: Patient seen and evaluated. He had episode of nausea with one episode of vomiting today. Laid down with improvement in symptoms. Discussed with patient, suspect mesenteric/colonic ischemia and discussed measures to manage her symptoms at home. She is scheduled for surgery 06/22/[address] Villarreal to correct her fistula. Plan is to discharge patient home with home health. Greater than 30 minutes been spent in the management space discharge. 06/13/2021: Patient seen in dialysis. Had a vasovagal episode yesterday after getting home from the toilet after a bowel movement. She felt better after laying down. States that this happens occasionally, but this episode seems to have lasted longer. 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 She is agreeable to SNF, but insurance cannot pay she will go home with home health. 06/13/2019 Patient seen and examined Discussed with RN Chart reviewed Discussed with case management We are hoping to discharge with home health later today however she had a episode of hypotension and tachycardia Hope to discharge tomorrow instead we are giving her some IV fluids 06/11: Patient seen and evaluated bedside. She is to have hemodialysis today at some point. To be reevaluated by vascular surgery for possible revision of chronic fistula some point this week. OT recommending home with home health when ready. client services representative informed me that she has no prison days. Some postural nausea/pain today when she sat up, alleviated with reclining. Suspect chronic mesenteric ischemia. 06/10, eating, feedign self but very weak, cannot sit up, lying too far back to eat well but refused to let me help her get propped up in bed to eat. needs PT and OT too weak to go home, will need skilled, prob long-term placement 06/09, not much change, needs skilled 06/08/2021: Afebrile. Patient denies any shortness of breath, nausea, vomiting, or diarrhea. She is COVID-19 positive, but due to lack of any symptoms I believe this PCR finding is residual from remote illness. She has tunneled hemodialysis catheter in place, and is scheduled for hemodialysis today. Due to positive COVID-19 status vascular surgery scheduled surgical revision of her fistula until 06/22/21. She does still complain of urinary urgency. Due to some stated weakness in difficulty getting around the house, I will have patient work with physical therapy evaluate for SNF. 06/08/2019 Patient seen and examined extent discussed with RN Chart reviewed She is scheduled to go to the OR tomorrow for left arm graft dialysis access 06/06/2021 Patient seen and examined Discussed with Dr. Phil Villarreal would like to put a fistula in the left arm perhaps in a week or 2 after the UTI has resolved Appreciate Dr. Villarreal input 06/06/2019 Patient seen and examined , discussed with RN, chart reviewed She is scheduled to go to IR today for evaluation of her malfunctioning dialysis cath Vitals/I&O Vitals/I&O: Vital Signs Date Time Temp Pulse Resp B/P (MAP) Pulse Ox O2 Delivery O2 Flow Rate FiO2 06/14/21 12:54 81 118/55 06/14/21 11:00 97.4 18 100 Room Air 97.4 06/14/21 08:00 2.0 I & O 06/13/21 06/13/21 06/14/21 15:00 23:00 07:00 Intake Total 720 ml 440 ml Output Total 0 ml Balance 720 ml 440 ml 0 ml Physical Exam General: Alert, Oriented X3 Heart: Regular rate Lungs: Clear Abdomen: Normal bowel sounds, Soft, No tenderness Extremities: Other Skin: Other Labs Labs: Laboratory Tests Test 06/13/21 16:41 06/13/21 20:25 06/14/21 07:03 06/14/21 11:25 Glucose (Fingerstick) 141 mg/dL (70-99) 198 mg/dL (70-99) 122 mg/dL (70-99) 161 mg/dL (70-99) Assessment and Plan Assessmemt and Plan Problems Medical Problems: (1) Chronic kidney disease with end stage 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 Medications: Current Medications Medications (Trade) Dose Ordered Sig/Angy Route PRN Reason Start Time Stop Time Status Last Admin Dose Admin Potassium Chloride (Klor-Con) 40 meq 1X ONCE PO 06/13/21 16:30 06/13/21 16:31 DC 06/13/21 17:39 Justifications for Admission Other Justification TIAN NYE MD Jun 14, 2021 13:05
--- NOTE | 2021-06-14 13:07 | PDOC3 ---
Discharge Summary Visit Information Date of Admission: Jun 04, 2021 Date of Discharge: Jun 14, 2021 Final Diagnosis Problems Medical Problems: (1) Chronic kidney disease with end stage renal failure on dialysis Status: Acute (2) Encounter for dialysis catheter care Status: Acute Brief Hospital Course Allergies Allergies Coded Allergies Type Severity Reaction Last Updated Verified I S O L A T I O N *CONTACT* Allergy Unknown 06/06/21 Yes No Known Medication Allergies Allergy Unknown 06/06/21 Yes Vital Signs Vital Signs Date Time Temp Pulse Resp B/P (MAP) Pulse Ox O2 Delivery O2 Flow Rate FiO2 06/14/21 12:54 81 118/55 06/14/21 11:00 97.4 18 100 Room Air 97.4 06/14/21 08:00 2.0 Lab Results Laboratory Tests Test 06/12/21 17:15 06/12/21 21:08 06/13/21 07:17 06/13/21 08:45 Glucose (Fingerstick) 153 mg/dL (70-99) 110 mg/dL (70-99) 90 mg/dL (70-99) White Blood Count 4.9 x10^3/uL (4.0-11.0) Red Blood Count 2.98 x10^6/uL (3.50-5.40) Hemoglobin 9.2 g/dL (12.0-15.5) Hematocrit 28.6 % (36.0-47.0) Mean Corpuscular Volume 96 fL (79-100) Mean Corpuscular Hemoglobin 31 pg (25-35) Mean Corpuscular Hemoglobin Concent 32 g/dL (31-37) Red Cell Distribution Width 17.4 % (11.5-14.5) Platelet Count 320 x10^3/uL (140-400) Neutrophils (%) (Auto) 61 % (31-73) Lymphocytes (%) (Auto) 26 % (24-48) Monocytes (%) (Auto) 7 % (0-9) Eosinophils (%) (Auto) 6 % (0-3) Basophils (%) (Auto) 1 % (0-3) Neutrophils # (Auto) 2.9 x10^3/uL (1.8-7.7) Lymphocytes # (Auto) 1.3 x10^3/uL (1.0-4.8) Monocytes # (Auto) 0.3 x10^3/uL (0.0-1.1) Eosinophils # (Auto) 0.3 x10^3/uL (0.0-0.7) Basophils # (Auto) 0.0 x10^3/uL (0.0-0.2) Sodium Level 141 mmol/L (136-145) Potassium Level 3.2 mmol/L (3.5-5.1) Chloride Level 104 mmol/L (98-107) Carbon Dioxide Level 32 mmol/L (21-32) Anion Gap 5 (6-14) Blood Urea Nitrogen 13 mg/dL (7-20) Creatinine 2.3 mg/dL (0.6-1.0) Estimated GFR (Cockcroft-Gault) 20.4 Glucose Level 103 mg/dL (70-99) Calcium Level 8.0 mg/dL (8.5-10.1) Phosphorus Level 2.5 mg/dL (2.6-4.7) Albumin 2.0 g/dL (3.4-5.0) Test 06/13/21 12:13 06/13/21 16:41 06/13/21 20:25 06/14/21 07:03 Glucose (Fingerstick) 103 mg/dL (70-99) 141 mg/dL (70-99) 198 mg/dL (70-99) 122 mg/dL (70-99) Test 06/14/21 11:25 Glucose (Fingerstick) 161 mg/dL (70-99) Laboratory Tests Test 06/13/21 16:41 06/13/21 20:25 06/14/21 07:03 06/14/21 11:25 Glucose (Fingerstick) 141 mg/dL (70-99) 198 mg/dL (70-99) 122 mg/dL (70-99) 161 mg/dL (70-99) Brief Hospital Course Ms. Cheng is a 81 old female who presented with dialysis catheter problem: Patient is an 81yo female presenting for problem with dialysis catheter. MWF dialysis patient. Apparently went to dialysis last Friday and they informed her her dialysis line was not working and needed to have it fixed. She really is unsure of the details. Unable to go anywhere for this until she presented today. Was febrile to 101 and said she was told to go home from a different outpatient center? Either way presenting today needing dialysis. Other than this no major complaints. 06/14/2021: Patient seen and evaluated. He had episode of nausea with one episode of vomiting today. Laid down with improvement in symptoms. Discussed with patient, suspect mesenteric/colonic ischemia and discussed measures to manage her symptoms at home. She is scheduled for surgery 06/22/[address] Villarreal to correct her fistula. Plan is to discharge patient home with home health. Greater than 30 minutes been spent in the management space discharge. 06/13/2021: Patient seen in dialysis. Had a vasovagal episode yesterday after getting home from the toilet after a bowel movement. She felt better after laying down. States that this happens occasionally, but this episode seems to have lasted longer. 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 She is agreeable to SNF, but insurance cannot pay she will go home with home health. 06/13/2019 Patient seen and examined Discussed with RN Chart reviewed Discussed with case management We are hoping to discharge with home health later today however she had a episode of hypotension and tachycardia Hope to discharge tomorrow instead we are giving her some IV fluids 06/11: Patient seen and evaluated bedside. She is to have hemodialysis today at some point. To be reevaluated by vascular surgery for possible revision of chronic fistula some point this week. OT recommending home with home health when ready. technical services librarian informed me that she has no long-term days. Some postural nausea/pain today when she sat up, alleviated with reclining. Suspect chronic mesenteric ischemia. 06/10, eating, feedign self but very weak, cannot sit up, lying too far back to eat well but refused to let me help her get propped up in bed to eat. needs PT and OT too weak to go home, will need skilled, prob long-term placement 06/09, not much change, needs skilled 06/08/2021: Afebrile. Patient denies any shortness of breath, nausea, vomiting, or diarrhea. She is COVID-19 positive, but due to lack of any symptoms I believe this PCR finding is residual from remote illness. She has tunneled hemodialysis catheter in place, and is scheduled for hemodialysis today. Due to positive COVID-19 status vascular surgery scheduled surgical revision of her fistula until 06/22/21. She does still complain of urinary urgency. Due to some stated weakness in difficulty getting around the house, I will have patient work with physical therapy evaluate for SNF. 06/08/2019 Patient seen and examined extent discussed with RN Chart reviewed She is scheduled to go to the OR tomorrow for left arm graft dialysis access 06/06/2021 Patient seen and examined Discussed with Dr. Phil Villarreal would like to put a fistula in the left arm perhaps in a week or 2 after the UTI has resolved Appreciate Dr. Villarreal input 06/06/2019 Patient seen and examined , discussed with RN, chart reviewed She is scheduled to go to IR today for evaluation of her malfunctioning dialysis cath Discharge Information Condition at Discharge: Stable Disposition/Orders: D/C to Home w/ HH Scheduled Amlodipine Besylate (Amlodipine Besylate) 5 Mg Tablet, 5 MG PO DAILY for htn for 60 Days, #60 Prescribed by: LAURIE SHARMA MD on 03/06/21 1108 Last Action: Continued on 06/04/211828 by [facility] Aspirin (Aspirin) 81 Mg Tab.chew, 1 TAB PO DAILY for A-fib prophylaxis, #30 Ref 3 Prescribed by: TIAN NYE MD on 12/26/20 1313 Last Action: Continued on 06/04/211828 by [facility] Atorvastatin Calcium (Atorvastatin Calcium) 40 Mg Tablet, 1 TAB PO QHS, #90 Ref 3 (Reported) Entered as Reported by: RADHA SIDHU on 04/01/16 1143 Last Action: Continued on 06/04/211828 by [facility] Ergocalciferol (Vitamin D2) (Vitamin D2) 50,000 Unit Capsule, 1 CAP PO WEEKLY, #4 Ref 5 (Reported) Entered as Reported by: JOELLEN GARBER on 06/21/16 0712 Last Action: Continued on 06/04/211828 by [facility] Ferrous Sulfate (Feosol) 325 Mg Tablet, 325 MG PO BIDWMEALS for iron deficiency anemia for 30 Days, #60 Prescribed by: JASON TILLEY MD on 10/21/19 0943 Last Action: Continued on 06/04/211828 by [facility] Furosemide (Furosemide) 40 Mg Tablet, 1 TAB PO DAILY for edema, #30 Ref 5 (Reported) Entered as Reported by: MARISEL JORGE RN on 10/14/19 1542 Last Action: Continued on 06/04/211828 by [facility] Insulin Aspart (Novolog) 100 Unit/1 Ml Cartridge, 5 UNIT SQ TIDAC for dm for 30 Days, #1 Prescribed by: NARCISO SHIELDS on 04/17/21 1021 Last Action: Converted on 06/04/211828 by [facility] Insulin Glargine,Hum.rec.anlog (Lantus) 100 Unit/1 Ml Vial, 8 UNIT SQ QHS for . for 30 Days, #1 Prescribed by: NARCISO SHIELDS on 04/17/21 1021 Last Action: Continued on 06/04/211828 by [facility] Lactobacillus Rhamnosus Gg (Culturelle) 1 Each Cap.sprink, 1 CAP PO BID for probiotic for 30 Days, #60 Prescribed by: JASON TILLEY MD on 10/21/19 0943 Last Action: Continued on 06/04/211828 by [facility] Midodrine Hcl (Midodrine Hcl) 2.5 Mg Tablet, 5 MG PO [id number] for hypotension for 30 Days, #90 Prescribed by: LAURIE SHARMA MD on 04/27/21 1008 Last Action: Continued on 06/04/211828 by [facility] Nystatin (Nystop) 60 Gm Powder, 1 VU TP QID for yeast infection for 15 Days, #1 Prescribed by: JASON TILLEY MD on 10/21/19 0943 Last Action: Continued on 06/04/211828 by [facility] Pantoprazole Sodium (Pantoprazole Sodium ) 40 Mg Tablet.dr, 1 TAB PO DAILY, #30 Ref 3 (Reported) Entered as Reported by: RADHA SIDHU on 04/01/16 1143 Last Action: Continued on 06/04/211828 by [facility] Scheduled PRN Acetaminophen (Tylenol) 325 Mg Tablet, 1-2 TAB PO QID PRN for PAIN, #60 Prescribed by: LILI SCHAEFER on 09/09/19 0954 Last Action: Continued on 06/04/211828 by [facility] Polyethylene Glycol 3350 (Polyethylene Glycol 3350) 17 Gm Powd.pack, 17 GM PO DAILY PRN for CONSTIPATION for 30 Days, #30 Ref 1 Prescribed by: TIAN NYE MD on 12/26/20 1313 Last Action: Continued on 06/04/211828 by [facility] Justicifation of Admission Dx: Justifications for Admission: Justification of Admission Dx: Yes Acute Renal Failure: RF Can't Be Managed Outpt Chronic Renal Failure: Renail Failure TIAN NYE MD Jun 14, 2021 13:07
--- NOTE | 2021-06-14 13:13 | SNU/HH DC ---
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 RN For Eval/Treatment: Yes Physical Therapy For: Evalulation/Treatment Occupational Therapy For: Evaluation/Treatment Pt Meets Homebound Status: Extreme weakness w/ amb. POST DISCHARGE ORDERS: Activity Instructions for Disc: Activity as tolerated Weight Bearing Status after Di: As tolerated DIET AFTER DISCHARGE: Cardiac Wound/Incision Care: Ice to area for comfort, No wound care needed CHECKS AFTER DISCHARGE: Checks after discharge: Check blood press - daily, Check blood sugar, ac/hs, Check your Temp as needed TREATMENT/EQUIPMENT ORDERS: Adaptive Equipment Issued: Bath Bench, Raised toilet seat w/arms, Walker CERTIFICATION STATEMENT: Certification Statement: Certification Statement: Based on the above finding, I certify that this patient is confined to the home and needs intermittent halfway care, physical therapy and/or speech therapy, or continues to need occupational therapy.~ This patient is under my care, and I have initiated the establishment of the plan of care.~ This patient will be followed by myself or a community physician who will periodically review the plan of care. Home Meds Active Scripts Midodrine Hcl (MIDODRINE HCL) 2.5 Mg Tablet, 5 MG PO [id number] for hypotension for 30 Days, #90 TAB Prov:LAURIE SHARMA MD 04/27/21 Insulin Aspart (NOVOLOG) 100 Unit/1 Ml Cartridge, 5 UNIT SQ TIDAC for dm for 30 Days, #1 EACH Prov:CASTLETONEYL K III DO 04/17/21 Insulin Glargine,Hum.rec.anlog (LANTUS) 100 Unit/1 Ml Vial, 8 UNIT SQ QHS for . for 30 Days, #1 EACH Prov:CASTLE,NIAL K III DO 04/17/21 Polyethylene Glycol 3350 (POLYETHYLENE GLYCOL 3350) 17 Gm Powd.pack, 17 GM PO DAILY PRN for CONSTIPATION for 30 Days, #30 PKT 1 Refill Prov:TIAN NYE MD 12/26/20 Aspirin (ASPIRIN) 81 Mg Tab.chew, 1 TAB PO DAILY for A-fib prophylaxis, #30 TAB 3 Refills Prov:TIAN NYE MD 12/26/20 Nystatin (NYSTOP) 60 Gm Powder, 1 VU TP QID for yeast infection for 15 Days, #1 MISC Prov:JASON TILLEY MD 10/21/19 Lactobacillus Rhamnosus Gg (CULTURELLE) 1 Each Cap.sprink, 1 CAP PO BID for probiotic for 30 Days, #60 CAP Prov:JASON TILLEY MD 10/21/19 Ferrous Sulfate (FEOSOL) 325 Mg Tablet, 325 MG PO BIDWMEALS for iron deficiency anemia for 30 Days, #60 TAB Prov:JASON TILLEY MD 10/21/19 Acetaminophen (TYLENOL) 325 Mg Tablet, 1-2 TAB PO QID PRN for PAIN, #60 TAB Prov:LILI SCHAEFER MD 09/09/19 Reported Medications Ergocalciferol (Vitamin D2) (VITAMIN D2) 50,000 Unit Capsule, 1 CAP PO WEEKLY, #4 CAP 5 Refills 06/21/16 Pantoprazole Sodium (PANTOPRAZOLE SODIUM ) 40 Mg Tablet.dr, 1 TAB PO DAILY, #30 TAB 3 Refills 04/01/16 Atorvastatin Calcium (ATORVASTATIN CALCIUM) 40 Mg Tablet, 1 TAB PO QHS, #90 TAB 3 Refills 04/01/16 Discontinued Reported Medications Furosemide (FUROSEMIDE) 40 Mg Tablet, 1 TAB PO DAILY for edema, #30 TAB 5 Refil ls 10/14/19 Discontinued Scripts Amlodipine Besylate (AMLODIPINE BESYLATE) 5 Mg Tablet, 5 MG PO DAILY for htn for 60 Days, #60 TAB Prov:LAURIE SHARMA MD 03/06/21 TIAN NYE MD Jun 14, 2021 13:13
--- NOTE | 2021-06-14 15:49 | NUR ---
Discharge Note: MERRICK ARRIAGA Discharge instructions and discharge home medications reviewed with Patient and a copy given. All questions have been answered and understanding verbalized. The following instructions and handouts were given: follow up instructions, medication education, malnutrition education Discontinued lines and drains: 20 gauge right FA, tip intact. pt tolerated well. Patient discharged to home with home health [facility].
[2021-06-21] MEDS ORDERED: INSU100I13 SQ (12:11)
== END 2021-06-14 16:15 | disposition home health service (06) | DRG 698 ==
LOC: ER 10:40 → 5 NORTH 14:10
PROVIDERS: ADMIT Student in an Organized Health Care Education/Training Program; ATTEND Student in an Organized Health Care Education/Training Program
PROC: 0J2TXYZ Change Other Device in Trunk Subcutaneous Tissue and Fascia, External Approach (ICD-10-PCS; principal; 2021-06-05)
PROC: 30233N1 Transfusion of Nonautologous Red Blood Cells into Peripheral Vein, Percutaneous Approach (ICD-10-PCS; 2021-06-06)
PROC: 5A1D70Z Performance of Urinary Filtration, Intermittent, Less than 6 Hours Per Day (ICD-10-PCS; 2021-06-06)
PROC: 5A1D70Z Performance of Urinary Filtration, Intermittent, Less than 6 Hours Per Day (ICD-10-PCS; 2021-06-08)
PROC: 5A1D70Z Performance of Urinary Filtration, Intermittent, Less than 6 Hours Per Day (ICD-10-PCS; 2021-06-11)
PROC: 5A1D70Z Performance of Urinary Filtration, Intermittent, Less than 6 Hours Per Day (ICD-10-PCS; 2021-06-13)
DX: T82.41XA Breakdown (mechanical) of vascular dialysis catheter, initial encounter (principal); N18.6 End stage renal disease; U07.1 COVID-19; I13.2 Hypertensive heart and chronic kidney disease with heart failure and with stage 5 chronic kidney disease, or end stage renal disease; Z16.12 Extended spectrum beta lactamase (ESBL) resistance; N13.6 Pyonephrosis; E11.22 Type 2 diabetes mellitus with diabetic chronic kidney disease; E78.00 Pure hypercholesterolemia, unspecified; E78.5 Hyperlipidemia, unspecified; I50.9 Heart failure, unspecified; Y71.2 Prosthetic and other implants, materials and accessory cardiovascular devices associated with adverse incidents; E11.42 Type 2 diabetes mellitus with diabetic polyneuropathy; K21.9 Gastro-esophageal reflux disease without esophagitis; I95.9 Hypotension, unspecified; R53.81 Other malaise; D64.9 Anemia, unspecified; B96.20 Unspecified Escherichia coli [E. coli] as the cause of diseases classified elsewhere; I48.0 Paroxysmal atrial fibrillation; Z79.4 Long term (current) use of insulin; Z79.899 Other long term (current) drug therapy; Z82.49 Family history of ischemic heart disease and other diseases of the circulatory system; Z86.711 Personal history of pulmonary embolism; Z99.2 Dependence on renal dialysis; Z86.718 Personal history of other venous thrombosis and embolism
CPT/HCPCS: 36415; 36430; 36581; 71045; 77001; 80048; 80053; 80069; 81001; 82962; 83540; 83550; 83605; 85025; 85027; 86850; 86900; 86901; 86920; 87040; 87077; 87086; 87186; 87426; 93005; 93970; 96361; 96374; 99152; 99153; C1750; C1769; J0690; J0696; J1644; J1815; J2250; J2405; J3010; J3490; J7040; P9016; U0003; 97530-GO; 97530-GP; 97535-GO; 99285-25; G0378

== ENCOUNTER 2021-06-20 11:11 | Emergency (ER) | payer MEDICARE ==
[~2021-06-20] VITALS: Ht 177.8 cm; Wt 114.0 kg
[2021-06-20] MEDS ORDERED: ONDANSETRON ODT 4 MG TAB.RAPDIS. PO ONE (11:45)
[2021-06-20 12:15] LABS: BASO % 1 % (0-3); EOS # 0.1 x10^3/uL (0.0-0.7); EOS % 2 % (0-3); HEMATOCRIT 31.4 % (36.0-47.0); LYMPH # 0.8 x10^3/uL (1.0-4.8); LYMPH % 12 % (24-48); MEAN CORPUSCULAR HEMOGLOBIN 31 pg (25-35); MEAN CORPUSCULAR HGB CONC 32 g/dL (31-37); MEAN CORPUSCULAR VOLUME 96 fL (79-100); MONO # 0.4 x10^3/uL (0.0-1.1); MONO % 6 % (0-9); NEUT # 5.1 x10^3/uL (1.8-7.7); NEUT % 80 % (31-73); PLATELET COUNT 344 x10^3/uL (140-400); RED BLOOD COUNT 3.26 x10^6/uL (3.50-5.40); RED CELL DISTRIBUTION WIDTH 18.1 % (11.5-14.5); WHITE BLOOD COUNT 6.4 x10^3/uL (4.0-11.0)
[2021-06-20 12:33] LABS: INFLUENZA A PATIENT NEGATIVE (NEGATIVE); INFLUENZA B PATIENT NEGATIVE (NEGATIVE)
--- NOTE | 2021-06-20 12:36 | RAD ---
AP chest. HISTORY: Nausea AP view was taken of the chest. Lungs are free of infiltrates. Heart is normal in size. Right dialysi s catheter extends to the right atrium unchanged. There is no effusion. IMPRESSION: 1. No acute infiltrates. Electronically signed by: Noah Rowley MD (06/20/2021 12:34 PM) [facility]
[2021-06-20 12:37] LABS: ANION GAP 10 (6-14); BLOOD UREA NITROGEN 42 mg/dL (7-20); BUN/CREATININE RATIO 10 (6-20); CALCIUM 8.9 mg/dL (8.5-10.1); CARBON DIOXIDE 28 mmol/L (21-32); CHLORIDE 107 mmol/L (98-107); CREATININE 4.3 mg/dL (0.6-1.0); GFR 9.9; GLUCOSE 134 mg/dL (70-99); POTASSIUM 3.9 mmol/L (3.5-5.1); SODIUM 145 mmol/L (136-145)
[2021-06-20 12:44] LABS: ALBUMIN 2.4 g/dL (3.4-5.0); ALBUMIN/GLOBULIN RATIO 0.6 (1.0-1.7); ALK PHOS 104 U/L (46-116); AST (SGOT) 15 U/L (15-37); LIPASE 108 U/L (73-393); MAGNESIUM 1.9 mg/dL (1.8-2.4); TOTAL BILIRUBIN 0.3 mg/dL (0.2-1.0); TOTAL PROTEIN 6.3 g/dL (6.4-8.2)
[2021-06-20 13:03] LABS: ALT (SGPT) < 6 U/L (14-59)
--- NOTE | 2021-06-20 13:10 | PHYS DOC ---
Past Medical History Past Medical History: A-Fib, Anemia, CHF, Diabetes-Type II, DVT, High Cholesterol, Hypertension, Pneumonia, Renal Failure, UTI, Other Additional Past Medical Histor: PE,lymphedema,RENAL FAILURE,ACUTE RESP FAILURE Past Surgical History: Tonsillectomy, Other Additional Past Surgical Histo: chest while infant/TUBES IN LUNGS, DIALYSIS SHUNT Smoking Status: Never Smoker Alcohol Use: None Drug Use: None Adult General Chief Complaint Chief Complaint: NAUSEA/VOMITING/DIARRHEA HPI HPI Patient is a 81 year old female with history of end-stage renal disease. She is on a Friday hemodialysis schedule. Went for dialysis today patient became nauseated was transported to the hospital. Her nausea actually improved upon arrival. After obtaining an EKG though she said it recurred. This seems to be somewhat positional. She does not have any abdominal pain, fever, shortness of breath, chest pain or other symptoms. Review of Systems Review of Systems Constitutional: Denies fever Eyes: Denies change in visual acuity or eye pain HENT: Denies sore throat Respiratory: Denies shortness of breath Cardiovascular: Denies chest pain GI: Denies abd pain : Denies dysuria Musculoskeletal: Denies back or extremity injury Integument: Denies rash or skin lesions Neurologic: Denies headache, focal weakness or sensory changes All other systems were reviewed and found to be within normal limits, except as documented in this note. Current Medications Current Medications Current Medications Medications (Trade) Dose Ordered Sig/Angy Start Time Stop Time Status Last Admin Dose Admin Ondansetron HCl (Zofran Odt) 4 mg 1X ONCE 06/20/21 11:45 06/20/21 11:46 DC 06/20/21 11:58 4 MG Allergies Allergies Allergies Coded Allergies Type Severity Reaction Last Updated Verified I S O L A T I O N *CONTACT* Allergy Unknown 06/06/21 Yes No Known Medication Allergies Allergy Unknown 06/06/21 Yes Physical Exam Physical Exam Constitutional: Well developed, well nourished, no acute distress, non-toxic appearance. HENT: Normocephalic, atraumatic, bilateral external ears normal, mucosa moist, nose normal. Eyes: EOMI, conjunctiva normal, no discharge. Neck: Normal range of motion, supple, no stridor, no meningeal signs. Cardiovascular: Regular rate and rhythm Lungs & Thorax: Bilateral breath sounds clear to auscultation, right subclavian dialysis catheter in place Abdomen: Soft, no tenderness or obvious masses Skin: Warm, dry, no erythema, no rash. Extremities: No tenderness, no cyanosis, no clubbing, ROM intact, no edema. Neurologic: Alert and oriented, normal motor function, normal sensory function, no focal deficits noted. Psychologic: Affect normal, judgement normal, mood normal. Current Patient Data Vital Signs Vital Signs Date Time Temp Pulse Resp B/P (MAP) Pulse Ox O2 Delivery O2 Flow Rate FiO2 06/20/21 12:00 72 18 110/63 (79) 98 Room Air 06/20/21 11:11 97.6 97.6 Lab Values Laboratory Tests Test 06/20/21 12:04 06/20/21 12:08 White Blood Count 6.4 x10^3/uL (4.0-11.0) Red Blood Count 3.26 x10^6/uL (3.50-5.40) L Hemoglobin 10.0 g/dL (12.0-15.5) L Hematocrit 31.4 % (36.0-47.0) L Mean Corpuscular Volume 96 fL (79-100) Mean Corpuscular Hemoglobin 31 pg (25-35) Mean Corpuscular Hemoglobin Concent 32 g/dL (31-37) Red Cell Distribution Width 18.1 % (11.5-14.5) H Platelet Count 344 x10^3/uL (140-400) Neutrophils (%) (Auto) 80 % (31-73) H Lymphocytes (%) (Auto) 12 % (24-48) L Monocytes (%) (Auto) 6 % (0-9) Eosinophils (%) (Auto) 2 % (0-3) Basophils (%) (Auto) 1 % (0-3) Neutrophils # (Auto) 5.1 x10^3/uL (1.8-7.7) Lymphocytes # (Auto) 0.8 x10^3/uL (1.0-4.8) L Monocytes # (Auto) 0.4 x10^3/uL (0.0-1.1) Eosinophils # (Auto) 0.1 x10^3/uL (0.0-0.7) Basophils # (Auto) 0.0 x10^3/uL (0.0-0.2) Sodium Level 145 mmol/L (136-145) Potassium Level 3.9 mmol/L (3.5-5.1) Chloride Level 107 mmol/L (98-107) Carbon Dioxide Level 28 mmol/L (21-32) Anion Gap 10 (6-14) Blood Urea Nitrogen 42 mg/dL (7-20) H Creatinine 4.3 mg/dL (0.6-1.0) H Estimated GFR (Cockcroft-Gault) 9.9 BUN/Creatinine Ratio 10 (6-20) Glucose Level 134 mg/dL (70-99) H Calcium Level 8.9 mg/dL (8.5-10.1) Magnesium Level 1.9 mg/dL (1.8-2.4) Total Bilirubin 0.3 mg/dL (0.2-1.0) Aspartate Amino Transferase (AST) 15 U/L (15-37) Alanine Aminotransferase (ALT) < 6 U/L (14-59) L Alkaline Phosphatase 104 U/L (46-116) Troponin I High Sensitivity 51 ng/L (4-50) H Total Protein 6.3 g/dL (6.4-8.2) L Albumin 2.4 g/dL (3.4-5.0) L Albumin/Globulin Ratio 0.6 (1.0-1.7) L Lipase 108 U/L (73-393) Influenza Type A Antigen Negative (NEGATIVE) Influenza Type B Antigen Negative (NEGATIVE) SARS-CoV-2 Antigen (Rapid) Negative (NEGATIVE) Laboratory Tests 06/20/21 12:04 Laboratory Tests 06/20/21 12:04 EKG EKG [] Interpretation Time: 12 EKG shows a sinus rhythm with a rate of 86. TN, QRS and QT corrected within normal limits. No ST segment elevation or depression. Radiology/Procedures Radiology/Procedures [] Impressions: PATIENT: MERRICK ARRIAGA AACCOUNT: [id number]#: [id number] : 1940 LOCATION: ER AGE: 81 SEX: F EXAM STATUS: REG ER ORD. PHYSICIAN: KEVAN HERNANDEZ MD REASON: nausea PROCEDURE: CHEST AP ONLY AP chest. HISTORY: Nausea AP view was taken of the chest. Lungs are free of infiltrates. Heart is normal in size. Right dialysis catheter extends to the right atrium unchanged. There is no effusion. IMPRESSION: 1. No acute infiltrates. Electronically signed by: Noah Rowley MD (06/20/2021 12:34 PM) [facility] DICTATED and SIGNED BY: NOAH ROWLEY MD DATE: 06/20/21 1233 Course & Med Decision Making Course & Med Decision Making Pertinent Labs and Imaging studies reviewed. (See chart for details) [] Is an 81-year-old female with nausea. Symptoms have resolved with Zofran. Lab work is fairly unrevealing. She is stable for transport back to dialysis. Dragon Disclaimer Dragon Disclaimer This electronic medical record was generated, in whole or in part, using a voice recognition dictation system. Departure Departure Impression: Primary Impression: Chronic kidney disease with end stage renal failure on dialysis Additional Impression: Nausea Disposition: 01 HOME / SELF CARE / HOMELESS Condition: STABLE Referrals: HARPREET ZAMORA MD (PCP) Problem Qualifiers KEVAN HERNANDEZ MD Jun 20, 2021 13:10
[2021-06-20 14:15] VITALS: BP 107/70
--- NOTE | 2021-06-21 07:52 | EKG ---
[facility] [address] [place] [address] Test Date: 2021-06-20 Test Time: 11:57:07 Pat Name: MERRICK ARRIAGA Department: Room: Gender: F Arch Support Maker: : 1940 Requested By: KEVAN HERNANDEZ Order Number: [id number] Reading MD: Lam Gale MD Measurements Intervals [place] Rate: 86 P: 38 MD: 198 QRS: 34 QRSD: 76 T: 35 QT: 372 QTc: 448 Interpretive Statements SINUS RHYTHM Electronically Signed On 06-22-2021 17:43:53 CDT by Lam Gale MD
[2021-06-21] MEDS ORDERED: INSU100I13 SQ (12:11)
== END 2021-06-20 14:52 | disposition home or self-care (01) ==
LOC: ER 11:11
DX: I13.2 Hypertensive heart and chronic kidney disease with heart failure and with stage 5 chronic kidney disease, or end stage renal disease (principal); E11.22 Type 2 diabetes mellitus with diabetic chronic kidney disease; N18.6 End stage renal disease; I50.9 Heart failure, unspecified; R11.0 Nausea; I48.91 Unspecified atrial fibrillation; E78.00 Pure hypercholesterolemia, unspecified; Z20.822 Contact with and (suspected) exposure to COVID-19; Z99.2 Dependence on renal dialysis; Z86.2 Personal history of diseases of the blood and blood-forming organs and certain disorders involving the immune mechanism; Z86.718 Personal history of other venous thrombosis and embolism; Z87.440 Personal history of urinary (tract) infections; Z88.8 Allergy status to other drugs, medicaments and biological substances
CPT/HCPCS: 36415; 71045; 80053; 83690; 83735; 84484; 85025; 87428; 93005; 99284

== ENCOUNTER 2021-06-22 10:30 | Day surgery (SDC) | payer MEDICARE ==
[~2021-06-22] VITALS: Ht 160 cm; Wt 89.5 kg
[~2021-06-22 10:30] MED LIST changes: +HEPARIN SODIUM 5,000 UNIT in IV NORMAL SALINE 500ML BAG 500 ML IRR ONE; +HYDROmorphone 2 MG/ML INJ. IVP PRN; +INSU100I13 SQ; +IV RINGERS,LACTATED 1000ML 1,000 ML IV SCH; +PROCHLORPERAZINE 10 MG/2 ML VIAL. IVP PRN; +fentaNYL PF VIAL 100 MCG/2 ML VIAL IVP PRN
[2021-06-22] MEDS ORDERED: SEVOFLURANE > 120 MINUTES. IH ONE (11:09)
[2021-06-22] MEDS ORDERED: LIDOCAINE 2% PF 5 ML VIAL. ONE (11:09)
[2021-06-22] MEDS ORDERED: PROPOFOL 10 MG/ML (20ML) VIAL. IV ONE (11:09)
[2021-06-22] MEDS ORDERED: fentaNYL PF VIAL 100 MCG/2 ML VIAL ONE ×2 (11:09→13:35)
[2021-06-22] MEDS ORDERED: ONDANSETRON PF 4 MG/2 ML VIAL. ONE (11:09)
[2021-06-22] MEDS ORDERED: DEXAMETHASONE SOD PHOS 4 MG/ML VIAL ONE (11:09)
[2021-06-22] MEDS ORDERED: LIDOCAINE 1% Multi-Dose 20 ML VIAL. ONE (11:11)
[2021-06-22] MEDS ORDERED: PAPAVERINE 60 MG/2 ML VIAL. ONE (11:11)
[2021-06-22] MEDS ORDERED: SURGICEL FIBRILLAR 1X2 EACH. ONE (11:11)
[2021-06-22 11:16] LABS: BASO # 0.1 x10^3/uL (0.0-0.2); BASO % 2 % (0-3); EOS # 0.3 x10^3/uL (0.0-0.7); EOS % 5 % (0-3); HEMATOCRIT 33.2 % (36.0-47.0); HEMOGLOBIN 10.4 g/dL (12.0-15.5); LYMPH # 1.2 x10^3/uL (1.0-4.8); LYMPH % 19 % (24-48); MEAN CORPUSCULAR HEMOGLOBIN 31 pg (25-35); MEAN CORPUSCULAR HGB CONC 31 g/dL (31-37); MEAN CORPUSCULAR VOLUME 98 fL (79-100); MONO # 0.5 x10^3/uL (0.0-1.1); MONO % 8 % (0-9); NEUT # 4.1 x10^3/uL (1.8-7.7); NEUT % 66 % (31-73); PLATELET COUNT 382 x10^3/uL (140-400); RED CELL DISTRIBUTION WIDTH 17.8 % (11.5-14.5); WHITE BLOOD COUNT 6.2 x10^3/uL (4.0-11.0)
[2021-06-22 11:35] LABS: CALCIUM 9.1 mg/dL (8.5-10.1); CREATININE 4.1 mg/dL (0.6-1.0); GFR 10.5; POTASSIUM 4.6 mmol/L (3.5-5.1)
[2021-06-22] MEDS ORDERED: INSULIN LISPRO 100 UNIT/ML 3ML VIAL for OP,RR ONLY. SQ PRN (13:30)
[2021-06-22] MEDS ORDERED: HYDR-2759 PO (13:31)
--- NOTE | 2021-06-22 13:31 | PDOC4 ---
OPERATIVE NOTE Pre-Op Diagnosis: End-stage renal disease on chronic hemodialysis needing long-term dialysis access Post-Op Diagnosis: Same Procedure Performed: Left arm brachial artery to cephalic vein fistula Surgeon: Lissette Villarreal MD Anesthesia Type: Meghana Barba NP Blood Loss: Approximately 20 mL Specimans Obtained: None Findings: The left arm cephalic vein was patent and at least 5 to 6 mm in diameter at the antecubital location. Complications: None Operative Note: The patient was brought to the operating room placed on table in supine position. She received general anesthesia monitored throughout the case by the anesthesiologist. I placed a tourniquet in the left upper arm and ultrasound was used to evaluate her left upper arm veins. The cephalic vein was patent and at least 5 mm in diameter and fairly superficial under the skin level. This was an optimal vein for a brachial artery to cephalic vein fistula. The left arm and hand were circumferentially prepped and draped in normal sterile fashion. I made a transverse incision just distal to the antecubital location over the area of the cephalic vein and brachial artery. I dissected down through the loco bcutaneous tissue down to the cephalic vein. The cephalic vein was patent and at least 5 to 6 mm in diameter. We dissected out proximally and distally within the wound. Medial to this we dissected deeper down through the subtendinous tissue and fascia down to the brachial space. The brachial artery was soft and noncalcified and had a strong palpable pulse within it. I dissected out proximally and distally. I heparinized with 4000 units of heparin. After 3 minutes we ligated the distal cephalic vein and branches with silk ties. I transected the vein proximal to this and we then reinforced the branches with clips. There was a large vein branch which we used as a good so that the end of the cephalic vein was widely patent. We brought this over to the area of the brachial artery. We clamped the brachial artery proximally and distally with spring bulldogs. We made a longitudinal arteriotomy in the anterior wall of the brachial artery. We performed an end to side anastomosis with running 6-0 Prolene suture. Prior to finishing this we backbled and flushed the vessels. There was pulsatile inflow through the brachial artery and good backbleeding. We finished the anastomosis and restored blood flow. The cephalic vein dilated very nicely it was probably at least 7 to 8 mm in diameter when arterialized. We explored proximally within the wound and there was 1 large side branch which we ligated with silk ties and clips. There is good hemostasis. We irrigated with antibiotic solution. Doppler was used and there is strong dopplerable flow in the proximal and distal brachial artery and at the radial location at the wrist. We left fibular over the vessels. We closed the subcutaneous tissue with running 3-0 Vicryl suture and closed the skin with running 4-0 Vicryl subcuticular suture. Steri-Strips and a sterile dressing were placed. She tolerated the surgery well with no immediate complications. LISSETTE VILLARREAL MD Jun 22, 2021 13:31
[2021-06-22] MEDS: fentaNYL PF VIAL 100 MCG/2 ML VIAL IVP PRN ×2 (13:36→13:45)
[2021-06-22] MEDS ORDERED: MORPHINE SULFATE 2 MG/ML INJ. ONE (13:55)
[2021-06-22] MEDS: MORPHINE SULFATE 2 MG/ML INJ. IVP PRN ×2 (13:55→14:05)
[2021-06-22] MEDS ORDERED: HYDROcodone/APAP 5/325MG 1 TAB TABLET ONE (14:01)
[2021-06-22 14:20] VITALS: BP 106/62
[2021-06-22] MEDS ORDERED: HYDROcodone/APAP 5/325MG 1 TAB TABLET PO ONE (15:30)
== END 2021-06-22 16:20 | disposition home or self-care (01) ==
LOC: SURG 10:30
PROVIDERS: ATTEND Surgery Vascular Surgery
DX: I12.0 Hypertensive chronic kidney disease with stage 5 chronic kidney disease or end stage renal disease (principal); N18.6 End stage renal disease; I48.91 Unspecified atrial fibrillation; E78.00 Pure hypercholesterolemia, unspecified; E11.22 Type 2 diabetes mellitus with diabetic chronic kidney disease; G47.30 Sleep apnea, unspecified; K21.9 Gastro-esophageal reflux disease without esophagitis; E66.9 Obesity, unspecified; M19.90 Unspecified osteoarthritis, unspecified site; M10.9 Gout, unspecified; Z99.2 Dependence on renal dialysis; Z79.82 Long term (current) use of aspirin; Z79.899 Other long term (current) drug therapy; Z98.890 Other specified postprocedural states
CPT/HCPCS: 36415; 36821; 80048; 82962; 85025; A4213; A4364; A4930; A6402; J0690; J1100; J1644; J2270; J2405; J2440; J2704; J3010; J3490; J7040; A4452; A6443

== ENCOUNTER 2021-06-26 12:29 | Inpatient (IN) | payer MEDICARE ==
[~2021-06-26] VITALS: Ht 160 cm; Wt 93.4 kg
[~2021-06-26 12:29] MED LIST changes: -HEPARIN SODIUM 5,000 UNIT in IV NORMAL SALINE 500ML BAG 500 ML IRR ONE; +HYDR-2759 PO; -HYDROmorphone 2 MG/ML INJ. IVP PRN; -IV RINGERS,LACTATED 1000ML 1,000 ML IV SCH; -PROCHLORPERAZINE 10 MG/2 ML VIAL. IVP PRN; -fentaNYL PF VIAL 100 MCG/2 ML VIAL IVP PRN
[2021-06-26] MEDS ORDERED: oxyCODONE/APAP 5/325 1 TAB TABLET PO ONE (12:30)
--- NOTE | 2021-06-26 14:07 | PHYS DOC ---
Past Medical History Past Medical History: A-Fib, Anemia, CHF, Diabetes-Type II, DVT, High Cho lesterol, Hypertension, Pneumonia, Renal Failure, UTI, Other Additional Past Medical Histor: PE,lymphedema,RENAL FAILURE,ACUTE RESP FAILURE, dialysis Past Surgical History: Tonsillectomy, Other Additional Past Surgical Histo: chest while /TUBES IN LUNGS, DIALYSIS SHUNT Smoking Status: Never Smoker Alcohol Use: None Drug Use: None General Adult EDM: Chief Complaint: DIALYSIS PROBLEM HPI: HPI: Patient is an 81-year-old female that presents today with a malfunction tunneled dialysis catheter. Patient states that last Friday she had an AV fistula placed in her left upper arm area, she then states that she was sent to dialysis, she states that during dialysis she was only able to complete 3 hours of her 4 hours dialysis treatment because of possible malfunction of her catheter in her right upper chest wall, she states that she was sent home from the dialysis center to follow-up on Friday, she states she went Friday and they were unable to dialyze her due to a malfunctioning catheter and instructed her to return today to see if they could manipulate the catheter to working and today again her catheter was unable to be used for dialysis. Patient denies chest pain or shortness of breath. Review of Systems: Review of Systems: Constitutional: Denies fever or chills. [] Eyes: Denies change in visual acuity. [] HENT: Denies nasal congestion or sore throat. [] Respiratory: Denies cough or shortness of breath. [] Cardiovascular: Denies chest pain or edema. [] GI: Denies abdominal pain, nausea, vomiting, bloody stools or diarrhea. [] : Denies dysuria. [] Musculoskeletal: Malfunctioning right upper chest wall tunneled dialysis catheter Integument: Denies rash. [] Neurologic: Denies headache, focal weakness or sensory changes. [] Endocrine: Denies polyuria or polydipsia. [] Lymphatic: Denies swollen glands. [] Psychiatric: Denies depression or anxiety. [] Heart Score: C/O Chest Pain: No Risk Factors: Risk Factors: DM, Current or recent (<one month) smoker, HTN, HLP, family history of CAD, obesity. Risk Scores: Score 0 - 3: 2.5% MACE over next 6 weeks - Discharge Home Score 4 - 6: 20.3% MACE over next 6 weeks - Admit for Clinical Observation Score 7 - 10: 72.7% MACE over next 6 weeks - Early Invasive Strategies Current Medications: Current Medications Medications (Trade) Dose Ordered Sig/Angy Start Time Stop Time Status Last Admin Dose Admin Oxycodone/ Acetaminophen (Percocet 5/325) 2 tab 1X ONCE 06/26/21 12:30 06/26/21 12:31 Cancel Allergies: Allergies: Allergies Coded Allergies Type Severity Reaction Last Updated Verified I S O L A T I O N *CONTACT* Allergy Unknown 06/06/21 Yes No Known Medication Allergies Allergy Unknown 06/26/21 Yes Physical Exam: PE: Constitutional: Well developed, well nourished, no acute distress, non-toxic appearance. [] HENT: Normocephalic, atraumatic, bilateral external ears normal, oropharynx moist, no oral exudates, nose normal. [] Eyes: PERRLA, EOMI, conjunctiva normal, no discharge. [] Neck: Normal range of motion, no tenderness, supple, no stridor. [] Cardiovascular:Heart rate regular rhythm, no murmur [] Lungs & Thorax: Bilateral breath sounds diminished, right upper chest wall tunneled dialysis catheter noted Abdomen: Bowel sounds normal, soft, no tenderness, no masses, no pulsatile masses. [] Skin: Warm, dry, no erythema, no rash. [] Back: No tenderness, no CVA tenderness. [] Extremities: left upper arm fistula noted Steri-Strips are in place incision is well approximated, no signs and symptoms of infection noted, positive bruit auscultated and thrill palpated. Left radial pulse 2+ Neurologic: Alert and oriented X 3, normal motor function, normal sensory function, no focal deficits noted. [] Psychologic: Affect normal, judgement normal, mood normal. [] Current Patient Data: Labs: Laboratory Tests Test 06/26/21 14:40 White Blood Count 6.5 x10^3/uL Red Blood Count 2.87 x10^6/uL Hemoglobin 8.7 g/dL Hematocrit 27.4 % Mean Corpuscular Volume 95 fL Mean Corpuscular Hemoglobin 30 pg Mean Corpuscular Hemoglobin Concent 32 g/dL Red Cell Distribution Width 17.1 % Platelet Count 302 x10^3/uL Neutrophils (%) (Auto) 81 % Lymphocytes (%) (Auto) 13 % Monocytes (%) (Auto) 4 % Eosinophils (%) (Auto) 2 % Basophils (%) (Auto) 1 % Neutrophils # (Auto) 5.3 x10^3/uL Lymphocytes # (Auto) 0.8 x10^3/uL Monocytes # (Auto) 0.3 x10^3/uL Eosinophils # (Auto) 0.1 x10^3/uL Basophils # (Auto) 0.1 x10^3/uL Prothrombin Time 14.9 SEC Prothromb Time International Ratio 1.2 Activated Partial Thromboplast Time 28 SEC Sodium Level 148 mmol/L Potassium Level 4.4 mmol/L Chloride Level 111 mmol/L Carbon Dioxide Level 28 mmol/L Anion Gap 9 Blood Urea Nitrogen 41 mg/dL Creatinine 4.4 mg/dL Estimated GFR (Cockcroft-Gault) 9.7 BUN/Creatinine Ratio 9 Glucose Level 100 mg/dL Calcium Level 8.7 mg/dL Total Bilirubin 0.3 mg/dL Aspartate Amino Transf (AST/SGOT) 18 U/L Alanine Aminotransferase (ALT/SGPT) < 6 U/L Alkaline Phosphatase 100 U/L Total Protein 6.4 g/dL Albumin 2.0 g/dL Albumin/Globulin Ratio 0.5 Current Medications Medications (Trade) Dose Ordered Sig/Angy Route PRN Reason Start Time Stop Time Status Last Admin Dose Admin Oxycodone/ Acetaminophen (Percocet 5/325) 2 tab 1X ONCE PO 06/26/21 12:30 06/26/21 12:31 Cancel Vital Signs: Vital Signs Date Time Temp Pulse Resp B/P (MAP) Pulse Ox O2 Delivery O2 Flow Rate FiO2 06/26/21 14:05 92 19 131/66 (87) 97 Room Air 06/26/21 13:05 88 16 126/66 (86) 98 Room Air 06/26/21 12:38 97.5 93 20 139/76 (97) 93 Room Air 97.5 Vital Signs Date Time Temp Pulse Resp B/P (MAP) Pulse Ox O2 Delivery O2 Flow Rate FiO2 06/26/21 12:38 97.5 93 20 139/76 (97) 93 Room Air 97.5 EKG: EKG: [] Radiology/Procedures: Radiology/Procedures: [] Course & Med Decision Making: Course & Med Decision Making Pertinent Labs and Imaging studies reviewed. (See chart for details) 1300 spoke to IR exchanging this catheter from the emergency department they state that the patient will need conscious sedation for the procedure so she will need to be admitted for aftercare from the procedure. Patient has also missed a couple dialysis treatments so she probably needs to be evaluated by nephrology as well is what they recommended. [address] Cruz he is agreeable to admitting this patient so that the tunneled dialysis catheter can be staged and the patient can have hemodialysis. Dragon Disclaimer: Dragon Disclaimer: This electronic medical record was generated, in whole or in part, using a voice recognition dictation system. Departure Departure Impression: Primary Impression: Malfunction of device Qualified Codes: T85.698A - Other mechanical complication of other specified internal prosthetic devices, implants and grafts, initial encounter Disposition: ADMITTED INPATIENT Admitting Physician: CHATO Condition: STABLE Referrals: HARPREET ZAMORA MD (PCP) NETO DEL ANGEL APRN Jun 26, 2021 14:07
[2021-06-26 15:00] LABS: BASO # 0.1 x10^3/uL (0.0-0.2); BASO % 1 % (0-3); EOS # 0.1 x10^3/uL (0.0-0.7); EOS % 2 % (0-3); HEMATOCRIT 27.4 % (36.0-47.0); HEMOGLOBIN 8.7 g/dL (12.0-15.5); LYMPH # 0.8 x10^3/uL (1.0-4.8); LYMPH % 13 % (24-48); MEAN CORPUSCULAR HEMOGLOBIN 30 pg (25-35); MEAN CORPUSCULAR HGB CONC 32 g/dL (31-37); MEAN CORPUSCULAR VOLUME 95 fL (79-100); MONO # 0.3 x10^3/uL (0.0-1.1); MONO % 4 % (0-9); NEUT # 5.3 x10^3/uL (1.8-7.7); NEUT % 81 % (31-73); PLATELET COUNT 302 x10^3/uL (140-400); RED BLOOD COUNT 2.87 x10^6/uL (3.50-5.40); RED CELL DISTRIBUTION WIDTH 17.1 % (11.5-14.5); WHITE BLOOD COUNT 6.5 x10^3/uL (4.0-11.0)
[2021-06-26 15:14] LABS: ANION GAP 9 (6-14); BLOOD UREA NITROGEN 41 mg/dL (7-20); BUN/CREATININE RATIO 9 (6-20); CALCIUM 8.7 mg/dL (8.5-10.1); CARBON DIOXIDE 28 mmol/L (21-32); CHLORIDE 111 mmol/L (98-107); CREATININE 4.4 mg/dL (0.6-1.0); GFR 9.7; GLUCOSE 100 mg/dL (70-99); POTASSIUM 4.4 mmol/L (3.5-5.1); SODIUM 148 mmol/L (136-145)
[2021-06-26 15:17] LABS: PROTHROMBIN TIME PATIENT 14.9 SEC (11.7-14.0)
[2021-06-26 15:25] LABS: ALBUMIN/GLOBULIN RATIO 0.5 (1.0-1.7); ALK PHOS 100 U/L (46-116); AST (SGOT) 18 U/L (15-37); TOTAL BILIRUBIN 0.3 mg/dL (0.2-1.0); TOTAL PROTEIN 6.4 g/dL (6.4-8.2)
[2021-06-26 15:27] LABS: ALT (SGPT) < 6 U/L (14-59)
--- NOTE | 2021-06-26 15:53 | EKG ---
[facility] [address] [place] [address] Test Date: 2021-06-26 Test Time: 14:49:55 Pat Name: MERRICK ARRIAGA Department: Room: ED HOLD 14 Gender: F Ear Nose Throat Surgeon: : 1940 Requested By: NETO DEL ANGEL Order Number: [id number] Reading MD: Basil Caldwell Measurements Intervals [place] Rate: 92 P: 37 NC: 180 QRS: 22 QRSD: 72 T: 24 QT: 368 QTc: 460 Interpretive Statements SINUS RHYTHM Electronically Signed On 06-30-2021 21:43:18 CDT by Basil Caldwell
[2021-06-26 17:00] VITALS: BP 142/76
[2021-06-26] MEDS ORDERED: ONDANSETRON PF 4 MG/2 ML VIAL. IVP PRN (17:00)
[2021-06-26] MEDS ORDERED: ZOLPIDEM 5 MG TABLET. PO PRN (17:00)
[2021-06-26] MEDS ORDERED: HYDROcodone/APAP 5/325MG 1 TAB TABLET PO PRN (17:00)
[2021-06-26] MEDS ORDERED: ACETAMINOPHEN 325 MG TABLET. PO PRN (17:00)
--- NOTE | 2021-06-26 17:08 | PDOC1 ---
History and Physical Date of Admission Date of Admission DATE: 06/26/21 TIME: 17:07 Identification/Chief Complaint Chief Complaint Nonfunctioning dialysis catheter Source Source: Chart review, Patient History of Present Illness History of Present Illness Patient is a 81-year-old female with past medical history ESRD on HD M/W/F, who presents from her dialysis center due to a malfunctioning tunneled dialysis catheter. On 06/22/2021 she had revision of left arm brachial artery to cephalic vein fistula. Patient states that she was only able to complete 3 of her scheduled 4 hours of dialysis because of possible malfunctioning her catheter in her right chest wall on Friday. When she followed up on Friday she was unable to dialyze her due to a malfunctioning catheter and instructed her to return today to see if they could manipulate the catheter to working. Today again her catheter was unable to be used for dialysis, so she was sent to the ED. labs on admission showed hemoglobin 8.7, hematocrit 27.4, sodium 148, BUN 47, creatinine 4.4, albumin 2.0, CBG 100. She will be admitted with IR and nephrology for further medical management. Past Medical History Cardiovascular: AFIB, HTN, Hyperlipidemia, Other Pulmonary: Pulmonary embolus, Other CENTRAL NERVOUS SYSTEM: Periperal neuropathy, Other GI: GERD Heme/Onc: Anemia NOS Hepatobiliary: No pertinent hx Psych: No pertinent hx Rheumatologic: Gout Infectious disease: No pertinent hx Renal/: Chronic renal insuff, Acute renal failure Endocrine: Diabetes Past Surgical History Past Surgical History: Tonsillectomy Family History Family History: Hypertension Social History Smoke: No ALCOHOL: none Drugs: None Current Problem List Problem List Problems Medical Problems: (1) Malfunction of device Status: Acute Current Medications Current Medications Current Medications Oxycodone/ Acetaminophen (Percocet 5/325) 2 tab 1X ONCE PO ; Start 06/26/21 at 12:30; Stop 06/26/21 at 12:31; Status Cancel Active Scripts Active Hydrocodone-Acetamin 5-325 mg (Hydrocodone/Acetaminophen) 1 Each Tablet 1 Each PO Q4HRS PRN Novolog (Insulin Aspart) 100 Unit/1 Ml Cartridge 5 Unit SQ TIDAC 30 Days Polyethylene Glycol 3350 17 Gm Powd.pack 17 Gm PO DAILY PRN 30 Days Aspirin 81 Mg Tab.chew 1 Tab PO DAILY Nystop (Nystatin) 60 Gm Powder 1 [place] TP QID 15 Days Culturelle (Lactobacillus Rhamnosus Gg) 1 Each Cap.sprink 1 Cap PO BID 30 Days Feosol (Ferrous Sulfate) 325 Mg Tablet 325 Mg PO BIDWMEALS 30 Days Tylenol (Acetaminophen) 325 Mg Tablet 1-2 Tab PO QID PRN Reported Lantus Solostar (Insulin Glargine,Hum.rec.anlog) 100 Unit/1 Ml Insuln.pen 30 Unit SQ QHS Vitamin D2 (Ergocalciferol (Vitamin D2)) 50,000 Unit Capsule 1 Cap PO WEEKLY Pantoprazole Sodium (Pantoprazole Sodium) 40 Mg Tablet.dr 1 Tab PO DAILY Atorvastatin Calcium 40 Mg Tablet 1 Tab PO QHS Allergies Allergies: Coded Allergies: I S O L A T I O N *CONTACT* (Verified Allergy, Unknown, 06/06/21) ESBL No Known Medication Allergies (Verified Allergy, Unknown, 06/26/21) ROS Review of System GENERAL: No history of weight change, weakness or fevers. SKIN: No bruising, hair changes or rashes. EYES: No blurred, double or loss of vision. NOSE AND THROAT: No history of nosebleeds, hoarseness or sore throat. HEART: Denies chest pain, denies palpitations. LUNGS: Denies cough, hemoptysis, wheezing or shortness of breath. GASTROINTESTINAL: Denies nausea, vomiting, abdominal pain. GENITOURINARY: Denies dysuria, frequency, urgency, hematuria. NEUROLOGIC: Denies history of numbness, tingling, tremor or weakness. PSYCHIATRIC: Denies anxiety, denies depression. ENDOCRINE: No history of heat or cold intolerance, polyuria or polydipsia. EXTREMITIES: Denies muscle weakness, joint pain, pain on walking or stiffness. Physical Exam Physical Exam General: Alert, Oriented X3, Cooperative, no acute distress HEENT: Atraumatic, EOMI Lungs: Bibasilar rales Heart: RRR, no rubs Cardiovascular: S1, S2 [] Abdomen: Normal bowel sounds, Soft, No tenderness Extremities: Bilateral leg edema Skin: Tunneled HD catheter to right chest wall no breakdown, No significant lesion Neuro: Normal speech, Sensation intact Psych/Mental Status: Mental status NL, Mood NL Vitals Vitals Vital Signs Date Time Temp Pulse Resp B/P (MAP) Pulse Ox O2 Delivery O2 Flow Rate FiO2 06/26/21 14:05 92 19 131/66 (87) 97 Room Air 06/26/21 12:38 97.5 97.5 Labs Labs Laboratory Tests Test 06/26/21 14:40 White Blood Count 6.5 x10^3/uL (4.0-11.0) Red Blood Count 2.87 x10^6/uL (3.50-5.40) Hemoglobin 8.7 g/dL (12.0-15.5) Hematocrit 27.4 % (36.0-47.0) Mean Corpuscular Volume 95 fL (79-100) Mean Corpuscular Hemoglobin 30 pg (25-35) Mean Corpuscular Hemoglobin Concent 32 g/dL (31-37) Red Cell Distribution Width 17.1 % (11.5-14.5) Platelet Count 302 x10^3/uL (140-400) Neutrophils (%) (Auto) 81 % (31-73) Lymphocytes (%) (Auto) 13 % (24-48) Monocytes (%) (Auto) 4 % (0-9) Eosinophils (%) (Auto) 2 % (0-3) Basophils (%) (Auto) 1 % (0-3) Neutrophils # (Auto) 5.3 x10^3/uL (1.8-7.7) Lymphocytes # (Auto) 0.8 x10^3/uL (1.0-4.8) Monocytes # (Auto) 0.3 x10^3/uL (0.0-1.1) Eosinophils # (Auto) 0.1 x10^3/uL (0.0-0.7) Basophils # (Auto) 0.1 x10^3/uL (0.0-0.2) Prothrombin Time 14.9 SEC (11.7-14.0) Prothromb Time International Ratio 1.2 (0.8-1.1) Activated Partial Thromboplast Time 28 SEC (24-38) Sodium Level 148 mmol/L (136-145) Potassium Level 4.4 mmol/L (3.5-5.1) Chloride Level 111 mmol/L (98-107) Carbon Dioxide Level 28 mmol/L (21-32) Anion Gap 9 (6-14) Blood Urea Nitrogen 41 mg/dL (7-20) Creatinine 4.4 mg/dL (0.6-1.0) Estimated GFR (Cockcroft-Gault) 9.7 BUN/Creatinine Ratio 9 (6-20) Glucose Level 100 mg/dL (70-99) Calcium Level 8.7 mg/dL (8.5-10.1) Total Bilirubin 0.3 mg/dL (0.2-1.0) Aspartate Amino Transf (AST/SGOT) 18 U/L (15-37) Alanine Aminotransferase (ALT/SGPT) < 6 U/L (14-59) Alkaline Phosphatase 100 U/L (46-116) Total Protein 6.4 g/dL (6.4-8.2) Albumin 2.0 g/dL (3.4-5.0) Albumin/Globulin Ratio 0.5 (1.0-1.7) Laboratory Tests Test 06/26/21 14:40 White Blood Count 6.5 x10^3/uL (4.0-11.0) Red Blood Count 2.87 x10^6/uL (3.50-5.40) Hemoglobin 8.7 g/dL (12.0-15.5) Hematocrit 27.4 % (36.0-47.0) Mean Corpuscular Volume 95 fL (79-100) Mean Corpuscular Hemoglobin 30 pg (25-35) Mean Corpuscular Hemoglobin Concent 32 g/dL (31-37) Red Cell Distribution Width 17.1 % (11.5-14.5) Platelet Count 302 x10^3/uL (140-400) Neutrophils (%) (Auto) 81 % (31-73) Lymphocytes (%) (Auto) 13 % (24-48) Monocytes (%) (Auto) 4 % (0-9) Eosinophils (%) (Auto) 2 % (0-3) Basophils (%) (Auto) 1 % (0-3) Neutrophils # (Auto) 5.3 x10^3/uL (1.8-7.7) Lymphocytes # (Auto) 0.8 x10^3/uL (1.0-4.8) Monocytes # (Auto) 0.3 x10^3/uL (0.0-1.1) Eosinophils # (Auto) 0.1 x10^3/uL (0.0-0.7) Basophils # (Auto) 0.1 x10^3/uL (0.0-0.2) Prothrombin Time 14.9 SEC (11.7-14.0) Prothromb Time International Ratio 1.2 (0.8-1.1) Activated Partial Thromboplast Time 28 SEC (24-38) Sodium Level 148 mmol/L (136-145) Potassium Level 4.4 mmol/L (3.5-5.1) Chloride Level 111 mmol/L (98-107) Carbon Dioxide Level 28 mmol/L (21-32) Anion Gap 9 (6-14) Blood Urea Nitrogen 41 mg/dL (7-20) Creatinine 4.4 mg/dL (0.6-1.0) Estimated GFR (Cockcroft-Gault) 9.7 BUN/Creatinine Ratio 9 (6-20) Glucose Level 100 mg/dL (70-99) Calcium Level 8.7 mg/dL (8.5-10.1) Total Bilirubin 0.3 mg/dL (0.2-1.0) Aspartate Amino Transf (AST/SGOT) 18 U/L (15-37) Alanine Aminotransferase (ALT/SGPT) < 6 U/L (14-59) Alkaline Phosphatase 100 U/L (46-116) Total Protein 6.4 g/dL (6.4-8.2) Albumin 2.0 g/dL (3.4-5.0) Albumin/Globulin Ratio 0.5 (1.0-1.7) VTE Prophylaxis Ordered VTE Prophylaxis Devices: No VTE Pharmacological Prophylaxi: Yes Assessment/Plan Assessment/Plan Malfunctioning tunneled hemodialysis catheter ESRD on HD Normocytic anemia DM2 Severe malnutrition Plan: Place consult to IR for placement of malfunctioning dialysis catheter We will consult nephrology for continued hemodialysis Once replaced patient will likely discharge home with self-care Resume home medications FEN - Cardiac diet PPX - Heparin FULL CODE. Patient names her sister (Reina Martin) as surrogate decision-maker Dispo - inpatient for above Justifications for Admission Other Justification TIAN NYE MD Jun 26, 2021 17:08
[2021-06-26] MEDS ORDERED: POLYETHYLENE GLYCOL 3350 17 GM PACKET. PO PRN (17:15)
[2021-06-26] MEDS: PANTOPRAZOLE 40 MG TABLET.DR. PO SCH (18:11)
[2021-06-26] MEDS: FERROUS SULFATE 325 MG TABLET. PO SCH (18:12)
[2021-06-26] MEDS: ASPIRIN CHEWABLE 81 MG TABLET. PO SCH (18:12)
--- NOTE | 2021-06-26 18:12 | NUR ---
Non-administered patients Aspirin, due to patient having a procedure tomorrow to assess her Hemodialysis catheter.
[2021-06-26 19:00] VITALS: BP 107/46
[2021-06-26] MEDS ORDERED: C.DIFF MED SCREEN BY RX. MC ONE (19:45)
[2021-06-26] MEDS: HEPARIN for SUB-Q USE 5,000 UNIT/ML VIAL. SQ SCH (21:00)
[2021-06-26] MEDS: INSULIN GLARGINE SYRINGE. SQ SCH (21:00)
[2021-06-26] MEDS: ATORVASTATIN CALCIUM 40 MG TABLET. PO SCH (22:35)
[2021-06-26] MEDS: NYSTATIN TOPICAL POWDER 15GM BOTTLE. TP SCH (22:35)
[2021-06-26 23:00] VITALS: BP 100/47
[2021-06-27] VITALS (15 sets, daily range): BP systolic 95–169; BP diastolic 37–103
[2021-06-27 06:14] LABS: BASO # 0.1 x10^3/uL (0.0-0.2); BASO % 1 % (0-3); EOS # 0.5 x10^3/uL (0.0-0.7); EOS % 10 % (0-3); HEMATOCRIT 25.8 % (36.0-47.0); HEMOGLOBIN 8.3 g/dL (12.0-15.5); LYMPH # 1.5 x10^3/uL (1.0-4.8); LYMPH % 27 % (24-48); MEAN CORPUSCULAR HEMOGLOBIN 31 pg (25-35); MEAN CORPUSCULAR HGB CONC 32 g/dL (31-37); MEAN CORPUSCULAR VOLUME 96 fL (79-100); MONO # 0.4 x10^3/uL (0.0-1.1); MONO % 7 % (0-9); NEUT # 3.1 x10^3/uL (1.8-7.7); NEUT % 56 % (31-73); PLATELET COUNT 294 x10^3/uL (140-400); RED CELL DISTRIBUTION WIDTH 17.1 % (11.5-14.5); WHITE BLOOD COUNT 5.6 x10^3/uL (4.0-11.0)
[2021-06-27 06:27] LABS: CALCIUM 8.4 mg/dL (8.5-10.1); CREATININE 4.7 mg/dL (0.6-1.0); GFR 8.9; POTASSIUM 3.9 mmol/L (3.5-5.1)
[2021-06-27] MEDS: INSULIN LISPRO 300 UNITS/3 ML VIAL. SQ SCH ×3 (08:00→17:00)
[2021-06-27] MEDS ORDERED: LIDOCAINE 1%/EPI 1:100,000 20 ML VIAL. ONE (08:34)
--- NOTE | 2021-06-27 08:36 | NUR ---
PT/OT request for orders: Screen complete and indicates likely need for PT/OT. Please order if you agree. Thanks Maximus Curran PT
[2021-06-27] MEDS ORDERED: HEPARIN for IV BOLUS 10,000 UNIT/10 ML VIAL. ONE (08:41)
[2021-06-27] MEDS ORDERED: fentaNYL PF VIAL 100 MCG/2 ML VIAL ONE (08:55)
[2021-06-27] MEDS ORDERED: MIDAZOLAM HCL/PF 2 MG/2 ML VIAL. ONE (08:55)
[2021-06-27] MEDS: ASPIRIN CHEWABLE 81 MG TABLET. PO SCH (09:00)
[2021-06-27] MEDS: HEPARIN for SUB-Q USE 5,000 UNIT/ML VIAL. SQ SCH ×2 (09:07→19:38)
--- NOTE | 2021-06-27 09:07 | NUR ---
Non-administered patients AM dose of Hepatin SQ due to patient getting a procedure this AM.
--- NOTE | 2021-06-27 09:12 | PDOC2 ---
CONSULT Date of Consult Date of Consult DATE: 06/27/21 TIME: 09:12 Reason for Consult Reason for Consult: ESRD Identification/Chief Complaint Chief Complaint " I was sent as my catheter was not working " Source Source: Chart review History of Present Illness Reason for Visit: Patient is a 81-year-old CF with history ESRD on HD M/W/F, who presents from her dialysis center due to a malfunctioning tunneled dialysis catheter. On 06/22/2021 she had revision of left arm brachial artery to cephalic vein fistula. She has been having frequent malfunction of her dialysis catheter and has been replace many times in past few weeks Her TDC was replaced this morning by IR at [facility] per patient . Denies any N/V/. No F/C. No SOB. Past Medical History Cardiovascular: AFIB, HTN, Hyperlipidemia, Other Pulmonary: Pulmonary embolus, Other CENTRAL NERVOUS SYSTEM: Periperal neuropathy, Other GI: GERD Heme/Onc: Anemia NOS Hepatobiliary: No pertinent hx Psych: No pertinent hx Rheumatologic: Gout Infectious disease: No pertinent hx Renal/: Chronic renal insuff, Acute renal failure Endocrine: Diabetes Past Surgical History Past Surgical History: Tonsillectomy Family History Family History: Hypertension Social History No ALCOHOL: none Drugs: None Lives: Alone Current Problem List Problem List Problems Medical Problems: (1) Malfunction of device Status: Acute Current Medications Current Medications Current Medications Oxycodone/ Acetaminophen (Percocet 5/325) 2 tab 1X ONCE PO ; Start 06/26/21 at 12:30; Stop 06/26/21 at 12:31; Status Cancel Ondansetron HCl (Zofran) 4 mg PRN Q6HRS PRN IVP NAUSEA/VOMITING; Start 06/26/21 at 17:00 Zolpidem Tartrate (Ambien) 5 mg PRN QHS PRN PO INSOMNIA, MAY REPEAT IN 1HR; Start 06/26/21 at 17:00 Acetaminophen/ Hydrocodone Bitart (Lortab 5/325) 1 tab PRN Q4HRS PRN PO MILD PAIN 1-3; Start 06/26/21 at 17:00 Acetaminophen (Tylenol) 650 mg PRN Q6HRS PRN PO Headaches, Temp > 101.5F; Start 06/26/21 at 17:00 Aspirin (Aspirin Chewable) 81 mg DAILY PO ; Start 06/26/21 at 18:00 Atorvastatin Calcium (Lipitor) 40 mg QHS PO Last administered on 06/26/21at 22:35; Start 06/26/21 at 21:00 Ergocalciferol (Vitamin D2) 50,000 unit WEEKLY PO ; Start 07/03/21 at 09:00 Ferrous Sulfate (Feosol) 325 mg BIDWMEALS PO Last administered on 06/26/21at 18:12; Start 06/26/21 at 18:00 Nystatin (Nystop) 1 laurel QID TP Last administered on 06/26/21at 22:35; Start 06/26/21 at 21:00 Pantoprazole Sodium (Protonix) 40 mg DAILY PO Last administered on 06/26/21at 18:11; Start 06/26/21 at 18:00 Polyethylene Glycol (miraLAX PACKET) 17 gm DAILY PRN PO CONSTIPATION; Start 06/26/21 at 17:15 Insulin Human Lispro (HumaLOG) 5 units TIDWMEALS SQ ; Start 06/27/21 at 08:00 Insulin Glargine (Lantus Syringe) 30 unit QHS SQ ; Start 06/26/21 at 21:00 Heparin Sodium (Porcine) (Heparin Sodium) 5,000 unit Q12HR SQ ; Start 06/26/21 at 21:00 Pharmacy Consult (C.diff Med Screen By Rx) 1 each 1X ONCE MC ; Start 06/26/21 at 19:45; Stop 06/26/21 at 19:46; Status UNV Lidocaine/ Epinephrine (LIDOCAINE 1%-EPI 1:100,000 Multi-Dose) 20 ml STK-MED ONCE .ROUTE ; Start 06/27/21 at 08:34; Stop 06/27/21 at 08:34; Status DC Heparin Sodium (Porcine) (Heparin Sodium) 10,000 unit STK-MED ONCE .ROUTE ; Start 06/27/21 at 08:41; Stop 06/27/21 at 08:42; Status DC Midazolam HCl (Versed) 2 mg STK-MED ONCE .ROUTE ; Start 06/27/21 at 08:55; Stop 06/27/21 at 08:55; Status DC Fentanyl Citrate (Fentanyl 2ml Vial) 100 mcg STK-MED ONCE .ROUTE ; Start 06/27/21 at 08:55; Stop 06/27/21 at 08:55; Status DC Cefazolin Sodium/ Dextrose 50 ml @ As Directed STK-MED ONCE IV ; Start 06/27/21 at 08:55; Stop 06/27/21 at 08:55; Status DC Active Scripts Active Novolog (Insulin Aspart) 100 Unit/1 Ml Cartridge 5 Unit SQ TIDAC 30 Days Polyethylene Glycol 3350 17 Gm Powd.pack 17 Gm PO DAILY PRN 30 Days Aspirin 81 Mg Tab.chew 1 Tab PO DAILY Nystop (Nystatin) 60 Gm Powder 1 Laurel TP QID 15 Days Culturelle (Lactobacillus Rhamnosus Gg) 1 Each Cap.sprink 1 Cap PO BID 30 Days Feosol (Ferrous Sulfate) 325 Mg Tablet 325 Mg PO BIDWMEALS 30 Days Tylenol (Acetaminophen) 325 Mg Tablet 1-2 Tab PO QID PRN Reported Vitamin D2 (Ergocalciferol (Vitamin D2)) 50,000 Unit Capsule 1 Cap PO WEEKLY Pantoprazole Sodium (Pantoprazole Sodium) 40 Mg Tablet.dr 1 Tab PO DAILY Atorvastatin Calcium 40 Mg Tablet 1 Tab PO QHS Allergies Allergies: Coded Allergies: I S O L A T I O N *CONTACT* (Verified Allergy, Unknown, 06/06/21) ESBL No Known Medication Allergies (Verified Allergy, Unknown, 06/26/21) ROS Review of System As per HPI, rest of the ROS is negative Physical Exam Physical Exam General Appearance: no apparent distress,resting comfortably Skin: warm Respiratory: bilateral CTA Heart: S1S2 Abdomen: soft, bowel sounds present Genitourinary: figueredo + Extremities: pulses present Neurology: alert Vital Signs Vital Signs Date Time Temp Pulse Resp B/P (MAP) Pulse Ox O2 Delivery O2 Flow Rate FiO2 06/27/21 07:00 97.9 89 16 134/37 (69) 93 97.9 06/26/21 20:00 Room Air Assessment & Plan ESRD- on HD MWF F @ [facility] , admitted for malfunctioning HDC; replaced this morning. Dialysis today. Discussed treatment plan with [facility] , replaced again this morning. Was replaced at access Center last week On 06/22/2021 she had revision of left arm brachial artery to cephalic vein fistula. Hydronephrosis - S/P Bilateral Ureteral stents fu with Urology Anemia- Gets IV Fe an BEATRICE on Dialysis days as OP per Protocol HX of PAfib Anemia - On BEATRICE ,Recd IV Venofer ; currently on Retacrit HTN- currently Low normal . DM II Labs Labs Laboratory Tests Test 06/26/21 14:40 06/26/21 21:32 06/27/21 05:30 White Blood Count 6.5 x10^3/uL (4.0-11.0) 5.6 x10^3/uL (4.0-11.0) Red Blood Count 2.87 x10^6/uL (3.50-5.40) 2.70 x10^6/uL (3.50-5.40) Hemoglobin 8.7 g/dL (12.0-15.5) 8.3 g/dL (12.0-15.5) Hematocrit 27.4 % (36.0-47.0) 25.8 % (36.0-47.0) Mean Corpuscular Volume 95 fL (79-100) 96 fL (79-100) Mean Corpuscular Hemoglobin 30 pg (25-35) 31 pg (25-35) Mean Corpuscular Hemoglobin Concent 32 g/dL (31-37) 32 g/dL (31-37) Red Cell Distribution Width 17.1 % (11.5-14.5) 17.1 % (11.5-14.5) Platelet Count 302 x10^3/uL (140-400) 294 x10^3/uL (140-400) Neutrophils (%) (Auto) 81 % (31-73) 56 % (31-73) Lymphocytes (%) (Auto) 13 % (24-48) 27 % (24-48) Monocytes (%) (Auto) 4 % (0-9) 7 % (0-9) Eosinophils (%) (Auto) 2 % (0-3) 10 % (0-3) Basophils (%) (Auto) 1 % (0-3) 1 % (0-3) Neutrophils # (Auto) 5.3 x10^3/uL (1.8-7.7) 3.1 x10^3/uL (1.8-7.7) Lymphocytes # (Auto) 0.8 x10^3/uL (1.0-4.8) 1.5 x10^3/uL (1.0-4.8) Monocytes # (Auto) 0.3 x10^3/uL (0.0-1.1) 0.4 x10^3/uL (0.0-1.1) Eosinophils # (Auto) 0.1 x10^3/uL (0.0-0.7) 0.5 x10^3/uL (0.0-0.7) Basophils # (Auto) 0.1 x10^3/uL (0.0-0.2) 0.1 x10^3/uL (0.0-0.2) Prothrombin Time 14.9 SEC (11.7-14.0) Prothromb Time International Ratio 1.2 (0.8-1.1) Activated Partial Thromboplast Time 28 SEC (24-38) Sodium Level 148 mmol/L (136-145) 144 mmol/L (136-145) Potassium Level 4.4 mmol/L (3.5-5.1) 3.9 mmol/L (3.5-5.1) Chloride Level 111 mmol/L (98-107) 109 mmol/L (98-107) Carbon Dioxide Level 28 mmol/L (21-32) 23 mmol/L (21-32) Anion Gap 9 (6-14) 12 (6-14) Blood Urea Nitrogen 41 mg/dL (7-20) 42 mg/dL (7-20) Creatinine 4.4 mg/dL (0.6-1.0) 4.7 mg/dL (0.6-1.0) Estimated GFR (Cockcroft-Gault) 9.7 8.9 BUN/Creatinine Ratio 9 (6-20) Glucose Level 100 mg/dL (70-99) 107 mg/dL (70-99) Calcium Level 8.7 mg/dL (8.5-10.1) 8.4 mg/dL (8.5-10.1) Total Bilirubin 0.3 mg/dL (0.2-1.0) Aspartate Amino Transf (AST/SGOT) 18 U/L (15-37) Alanine Aminotransferase (ALT/SGPT) < 6 U/L (14-59) Alkaline Phosphatase 100 U/L (46-116) Total Protein 6.4 g/dL (6.4-8.2) Albumin 2.0 g/dL (3.4-5.0) Albumin/Globulin Ratio 0.5 (1.0-1.7) Glucose (Fingerstick) 158 mg/dL (70-99) Laboratory Tests Test 06/26/21 14:40 06/26/21 21:32 06/27/21 05:30 White Blood Count 6.5 x10^3/uL (4.0-11.0) 5.6 x10^3/uL (4.0-11.0) Red Blood Count 2.87 x10^6/uL (3.50-5.40) 2.70 x10^6/uL (3.50-5.40) Hemoglobin 8.7 g/dL (12.0-15.5) 8.3 g/dL (12.0-15.5) Hematocrit 27.4 % (36.0-47.0) 25.8 % (36.0-47.0) Mean Corpuscular Volume 95 fL (79-100) 96 fL (79-100) Mean Corpuscular Hemoglobin 30 pg (25-35) 31 pg (25-35) Mean Corpuscular Hemoglobin Concent 32 g/dL (31-37) 32 g/dL (31-37) Red Cell Distribution Width 17.1 % (11.5-14.5) 17.1 % (11.5-14.5) Platelet Count 302 x10^3/uL (140-400) 294 x10^3/uL (140-400) Neutrophils (%) (Auto) 81 % (31-73) 56 % (31-73) Lymphocytes (%) (Auto) 13 % (24-48) 27 % (24-48) Monocytes (%) (Auto) 4 % (0-9) 7 % (0-9) Eosinophils (%) (Auto) 2 % (0-3) 10 % (0-3) Basophils (%) (Auto) 1 % (0-3) 1 % (0-3) Neutrophils # (Auto) 5.3 x10^3/uL (1.8-7.7) 3.1 x10^3/uL (1.8-7.7) Lymphocytes # (Auto) 0.8 x10^3/uL (1.0-4.8) 1.5 x10^3/uL (1.0-4.8) Monocytes # (Auto) 0.3 x10^3/uL (0.0-1.1) 0.4 x10^3/uL (0.0-1.1) Eosinophils # (Auto) 0.1 x10^3/uL (0.0-0.7) 0.5 x10^3/uL (0.0-0.7) Basophils # (Auto) 0.1 x10^3/uL (0.0-0.2) 0.1 x10^3/uL (0.0-0.2) Prothrombin Time 14.9 SEC (11.7-14.0) Prothromb Time International Ratio 1.2 (0.8-1.1) Activated Partial Thromboplast Time 28 SEC (24-38) Sodium Level 148 mmol/L (136-145) 144 mmol/L (136-145) Potassium Level 4.4 mmol/L (3.5-5.1) 3.9 mmol/L (3.5-5.1) Chloride Level 111 mmol/L (98-107) 109 mmol/L (98-107) Carbon Dioxide Level 28 mmol/L (21-32) 23 mmol/L (21-32) Anion Gap 9 (6-14) 12 (6-14) Blood Urea Nitrogen 41 mg/dL (7-20) 42 mg/dL (7-20) Creatinine 4.4 mg/dL (0.6-1.0) 4.7 mg/dL (0.6-1.0) Estimated GFR (Cockcroft-Gault) 9.7 8.9 BUN/Creatinine Ratio 9 (6-20) Glucose Level 100 mg/dL (70-99) 107 mg/dL (70-99) Calcium Level 8.7 mg/dL (8.5-10.1) 8.4 mg/dL (8.5-10.1) Total Bilirubin 0.3 mg/dL (0.2-1.0) Aspartate Amino Transf (AST/SGOT) 18 U/L (15-37) Alanine Aminotransferase (ALT/SGPT) < 6 U/L (14-59) Alkaline Phosphatase 100 U/L (46-116) Total Protein 6.4 g/dL (6.4-8.2) Albumin 2.0 g/dL (3.4-5.0) Albumin/Globulin Ratio 0.5 (1.0-1.7) Glucose (Fingerstick) 158 mg/dL (70-99) Review All relevant outside records, renal labs, imaging studies, telemetry/EKG's were reviewed. MEREDITH CULP MD Jun 27, 2021 09:12
[2021-06-27] MEDS ORDERED: MIDAZOLAM HCL/PF 2 MG/2 ML VIAL. IV ONE (09:45)
[2021-06-27] MEDS ORDERED: LIDOCAINE 1%/EPI 1:100,000 20 ML VIAL. INJ ONE (09:45)
[2021-06-27] MEDS ORDERED: fentaNYL PF VIAL 100 MCG/2 ML VIAL IV ONE (09:45)
[2021-06-27] MEDS ORDERED: IV NORMAL SALINE 1000ML BAG 1,000 ML IV PRN ×2 (11:00)
[2021-06-27] MEDS ORDERED: DIALYSIS PATIENT. MC PRN ×2 (11:00→16:30)
[2021-06-27] MEDS: PANTOPRAZOLE 40 MG TABLET.DR. PO SCH (12:51)
[2021-06-27] MEDS: FERROUS SULFATE 325 MG TABLET. PO SCH ×2 (12:51→20:45)
[2021-06-27] MEDS: NYSTATIN TOPICAL POWDER 15GM BOTTLE. TP SCH ×4 (12:52→20:46)
--- NOTE | 2021-06-27 13:00 | PDOC ---
[employer] PROGRESS NOTE Date of Service DOS: DATE: 06/27/21 TIME: 12:58 Chief Complaint Chief Complaint Malfunctioning tunneled hemodialysis catheter ESRD on HD Normocytic anemia DM2 Severe malnutrition History of Present Illness History of Present Illness 06/27: Patient seen and evaluated at bedside. She had tunneled dialysis catheter replaced by IR. She is scheduled for dialysis today. Barring any setbacks with new catheter she will discharge home with family care. Will prepare discharge accordingly. Greater than 30 minutes spent managing the discharge of this patient. Vitals/I&O Vitals/I&O: Vital Signs Date Time Temp Pulse Resp B/P (MAP) Pulse Ox O2 Delivery O2 Flow Rate FiO2 06/27/21 11:00 97.8 99 18 101/46 (64) 93 97.8 06/27/21 10:03 Nasal Cannula 2.0 Physical Exam General: Alert, Oriented X3, Cooperative Heart: Regular rate Lungs: Clear Abdomen: Soft Extremities: No cyanosis Skin: No rashes Labs Labs: Laboratory Tests Test 06/26/21 14:40 06/26/21 21:32 06/27/21 05:30 06/27/21 10:42 White Blood Count 6.5 x10^3/uL (4.0-11.0) 5.6 x10^3/uL (4.0-11.0) Red Blood Count 2.87 x10^6/uL (3.50-5.40) 2.70 x10^6/uL (3.50-5.40) Hemoglobin 8.7 g/dL (12.0-15.5) 8.3 g/dL (12.0-15.5) Hematocrit 27.4 % (36.0-47.0) 25.8 % (36.0-47.0) Mean Corpuscular Volume 95 fL (79-100) 96 fL (79-100) Mean Corpuscular Hemoglobin 30 pg (25-35) 31 pg (25-35) Mean Corpuscular Hemoglobin Concent 32 g/dL (31-37) 32 g/dL (31-37) Red Cell Distribution Width 17.1 % (11.5-14.5) 17.1 % (11.5-14.5) Platelet Count 302 x10^3/uL (140-400) 294 x10^3/uL (140-400) Neutrophils (%) (Auto) 81 % (31-73) 56 % (31-73) Lymphocytes (%) (Auto) 13 % (24-48) 27 % (24-48) Monocytes (%) (Auto) 4 % (0-9) 7 % (0-9) Eosinophils (%) (Auto) 2 % (0-3) 10 % (0-3) Basophils (%) (Auto) 1 % (0-3) 1 % (0-3) Neutrophils # (Auto) 5.3 x10^3/uL (1.8-7.7) 3.1 x10^3/uL (1.8-7.7) Lymphocytes # (Auto) 0.8 x10^3/uL (1.0-4.8) 1.5 x10^3/uL (1.0-4.8) Monocytes # (Auto) 0.3 x10^3/uL (0.0-1.1) 0.4 x10^3/uL (0.0-1.1) Eosinophils # (Auto) 0.1 x10^3/uL (0.0-0.7) 0.5 x10^3/uL (0.0-0.7) Basophils # (Auto) 0.1 x10^3/uL (0.0-0.2) 0.1 x10^3/uL (0.0-0.2) Prothrombin Time 14.9 SEC (11.7-14.0) Prothromb Time International Ratio 1.2 (0.8-1.1) Activated Partial Thromboplast Time 28 SEC (24-38) Sodium Level 148 mmol/L (136-145) 144 mmol/L (136-145) Potassium Level 4.4 mmol/L (3.5-5.1) 3.9 mmol/L (3.5-5.1) Chloride Level 111 mmol/L (98-107) 109 mmol/L (98-107) Carbon Dioxide Level 28 mmol/L (21-32) 23 mmol/L (21-32) Anion Gap 9 (6-14) 12 (6-14) Blood Urea Nitrogen 41 mg/dL (7-20) 42 mg/dL (7-20) Creatinine 4.4 mg/dL (0.6-1.0) 4.7 mg/dL (0.6-1.0) Estimated GFR (Cockcroft-Gault) 9.7 8.9 BUN/Creatinine Ratio 9 (6-20) Glucose Level 100 mg/dL (70-99) 107 mg/dL (70-99) Calcium Level 8.7 mg/dL (8.5-10.1) 8.4 mg/dL (8.5-10.1) Total Bilirubin 0.3 mg/dL (0.2-1.0) Aspartate Amino Transf (AST/SGOT) 18 U/L (15-37) Alanine Aminotransferase (ALT/SGPT) < 6 U/L (14-59) Alkaline Phosphatase 100 U/L (46-116) Total Protein 6.4 g/dL (6.4-8.2) Albumin 2.0 g/dL (3.4-5.0) Albumin/Globulin Ratio 0.5 (1.0-1.7) Glucose (Fingerstick) 158 mg/dL (70-99) 130 mg/dL (70-99) Assessment and Plan Assessmemt and Plan Problems Medical Problems: (1) Malfunction of device Status: Acute Comment Review of Relevant I have reviewed the following items edis (where applicable) has been applied. Medications: Current Medications Medications (Trade) Dose Ordered Sig/Angy Route PRN Reason Start Time Stop Time Status Last Admin Dose Admin Atorvastatin Calcium (Lipitor) 40 mg QHS PO 06/26/21 21:00 06/26/21 22:35 Ferrous Sulfate (Feosol) 325 mg BIDWMEALS PO 06/26/21 18:00 06/27/21 12:51 Nystatin (Nystop) 1 melissa QID TP 06/26/21 21:00 06/27/21 12:52 Pantoprazole Sodium (Protonix) 40 mg DAILY PO 06/26/21 18:00 06/27/21 12:51 Midazolam HCl (Versed) 2 mg 1X ONCE IV 06/27/21 09:45 06/27/21 09:46 DC 06/27/21 10:00 Fentanyl Citrate (Fentanyl 2ml Vial) 100 mcg 1X ONCE IV 06/27/21 09:45 06/27/21 09:46 DC 06/27/21 09:58 Lidocaine/ Epinephrine (LIDOCAINE 1%-EPI 1:100,000 Multi-Dose) 20 ml 1X ONCE INJ 06/27/21 09:45 06/27/21 09:46 DC 06/27/21 10:00 Cefazolin Sodium/ Dextrose 50 ml @ 100 mls/hr 1X ONCE IV 06/27/21 09:45 06/27/21 10:14 DC 06/27/21 09:57 Heparin Sodium (Porcine) (Heparin Sodium) 2,800 unit 1X ONCE INT CAT 06/27/21 10:30 06/27/21 10:31 DC 06/27/21 10:30 Justifications for Admission Other Justification TIAN NYE MD Jun 27, 2021 13:00
--- NOTE | 2021-06-27 13:03 | PDOC3 ---
Discharge Summary Visit Information Date of Admission: Jun 26, 2021 Date of Discharge: Jun 27, 2021 Final Diagnosis Problems Medical Problems: (1) Malfunction of device Status: Acute Brief Hospital Course Allergies Allergies Coded Allergies Type Severity Reaction Last Updated Verified I S O L A T I O N *CONTACT* Allergy Unknown 06/06/21 Yes No Known Medication Allergies Allergy Unknown 06/26/21 Yes Vital Signs Vital Signs Date Time Temp Pulse Resp B/P (MAP) Pulse Ox O2 Delivery O2 Flow Rate FiO2 06/27/21 11:00 97.8 99 18 101/46 (64) 93 97.8 06/27/21 10:03 Nasal Cannula 2.0 Lab Results Laboratory Tests Test 06/26/21 14:40 06/26/21 21:32 06/27/21 05:30 06/27/21 10:42 White Blood Count 6.5 x10^3/uL (4.0-11.0) 5.6 x10^3/uL (4.0-11.0) Red Blood Count 2.87 x10^6/uL (3.50-5.40) 2.70 x10^6/uL (3.50-5.40) Hemoglobin 8.7 g/dL (12.0-15.5) 8.3 g/dL (12.0-15.5) Hematocrit 27.4 % (36.0-47.0) 25.8 % (36.0-47.0) Mean Corpuscular Volume 95 fL (79-100) 96 fL (79-100) Mean Corpuscular Hemoglobin 30 pg (25-35) 31 pg (25-35) Mean Corpuscular Hemoglobin Concent 32 g/dL (31-37) 32 g/dL (31-37) Red Cell Distribution Width 17.1 % (11.5-14.5) 17.1 % (11.5-14.5) Platelet Count 302 x10^3/uL (140-400) 294 x10^3/uL (140-400) Neutrophils (%) (Auto) 81 % (31-73) 56 % (31-73) Lymphocytes (%) (Auto) 13 % (24-48) 27 % (24-48) Monocytes (%) (Auto) 4 % (0-9) 7 % (0-9) Eosinophils (%) (Auto) 2 % (0-3) 10 % (0-3) Basophils (%) (Auto) 1 % (0-3) 1 % (0-3) Neutrophils # (Auto) 5.3 x10^3/uL (1.8-7.7) 3.1 x10^3/uL (1.8-7.7) Lymphocytes # (Auto) 0.8 x10^3/uL (1.0-4.8) 1.5 x10^3/uL (1.0-4.8) Monocytes # (Auto) 0.3 x10^3/uL (0.0-1.1) 0.4 x10^3/uL (0.0-1.1) Eosinophils # (Auto) 0.1 x10^3/uL (0.0-0.7) 0.5 x10^3/uL (0.0-0.7) Basophils # (Auto) 0.1 x10^3/uL (0.0-0.2) 0.1 x10^3/uL (0.0-0.2) Prothrombin Time 14.9 SEC (11.7-14.0) Prothromb Time International Ratio 1.2 (0.8-1.1) Activated Partial Thromboplast Time 28 SEC (24-38) Sodium Level 148 mmol/L (136-145) 144 mmol/L (136-145) Potassium Level 4.4 mmol/L (3.5-5.1) 3.9 mmol/L (3.5-5.1) Chloride Level 111 mmol/L (98-107) 109 mmol/L (98-107) Carbon Dioxide Level 28 mmol/L (21-32) 23 mmol/L (21-32) Anion Gap 9 (6-14) 12 (6-14) Blood Urea Nitrogen 41 mg/dL (7-20) 42 mg/dL (7-20) Creatinine 4.4 mg/dL (0.6-1.0) 4.7 mg/dL (0.6-1.0) Estimated GFR (Cockcroft-Gault) 9.7 8.9 BUN/Creatinine Ratio 9 (6-20) Glucose Level 100 mg/dL (70-99) 107 mg/dL (70-99) Calcium Level 8.7 mg/dL (8.5-10.1) 8.4 mg/dL (8.5-10.1) Total Bilirubin 0.3 mg/dL (0.2-1.0) Aspartate Amino Transf (AST/SGOT) 18 U/L (15-37) Alanine Aminotransferase (ALT/SGPT) < 6 U/L (14-59) Alkaline Phosphatase 100 U/L (46-116) Total Protein 6.4 g/dL (6.4-8.2) Albumin 2.0 g/dL (3.4-5.0) Albumin/Globulin Ratio 0.5 (1.0-1.7) Glucose (Fingerstick) 158 mg/dL (70-99) 130 mg/dL (70-99) Laboratory Tests Test 06/26/21 14:40 06/26/21 21:32 06/27/21 05:30 06/27/21 10:42 White Blood Count 6.5 x10^3/uL (4.0-11.0) 5.6 x10^3/uL (4.0-11.0) Red Blood Count 2.87 x10^6/uL (3.50-5.40) 2.70 x10^6/uL (3.50-5.40) Hemoglobin 8.7 g/dL (12.0-15.5) 8.3 g/dL (12.0-15.5) Hematocrit 27.4 % (36.0-47.0) 25.8 % (36.0-47.0) Mean Corpuscular Volume 95 fL (79-100) 96 fL (79-100) Mean Corpuscular Hemoglobin 30 pg (25-35) 31 pg (25-35) Mean Corpuscular Hemoglobin Concent 32 g/dL (31-37) 32 g/dL (31-37) Red Cell Distribution Width 17.1 % (11.5-14.5) 17.1 % (11.5-14.5) Platelet Count 302 x10^3/uL (140-400) 294 x10^3/uL (140-400) Neutrophils (%) (Auto) 81 % (31-73) 56 % (31-73) Lymphocytes (%) (Auto) 13 % (24-48) 27 % (24-48) Monocytes (%) (Auto) 4 % (0-9) 7 % (0-9) Eosinophils (%) (Auto) 2 % (0-3) 10 % (0-3) Basophils (%) (Auto) 1 % (0-3) 1 % (0-3) Neutrophils # (Auto) 5.3 x10^3/uL (1.8-7.7) 3.1 x10^3/uL (1.8-7.7) Lymphocytes # (Auto) 0.8 x10^3/uL (1.0-4.8) 1.5 x10^3/uL (1.0-4.8) Monocytes # (Auto) 0.3 x10^3/uL (0.0-1.1) 0.4 x10^3/uL (0.0-1.1) Eosinophils # (Auto) 0.1 x10^3/uL (0.0-0.7) 0.5 x10^3/uL (0.0-0.7) Basophils # (Auto) 0.1 x10^3/uL (0.0-0.2) 0.1 x10^3/uL (0.0-0.2) Prothrombin Time 14.9 SEC (11.7-14.0) Prothromb Time International Ratio 1.2 (0.8-1.1) Activated Partial Thromboplast Time 28 SEC (24-38) Sodium Level 148 mmol/L (136-145) 144 mmol/L (136-145) Potassium Level 4.4 mmol/L (3.5-5.1) 3.9 mmol/L (3.5-5.1) Chloride Level 111 mmol/L (98-107) 109 mmol/L (98-107) Carbon Dioxide Level 28 mmol/L (21-32) 23 mmol/L (21-32) Anion Gap 9 (6-14) 12 (6-14) Blood Urea Nitrogen 41 mg/dL (7-20) 42 mg/dL (7-20) Creatinine 4.4 mg/dL (0.6-1.0) 4.7 mg/dL (0.6-1.0) Estimated GFR (Cockcroft-Gault) 9.7 8.9 BUN/Creatinine Ratio 9 (6-20) Glucose Level 100 mg/dL (70-99) 107 mg/dL (70-99) Calcium Level 8.7 mg/dL (8.5-10.1) 8.4 mg/dL (8.5-10.1) Total Bilirubin 0.3 mg/dL (0.2-1.0) Aspartate Amino Transf (AST/SGOT) 18 U/L (15-37) Alanine Aminotransferase (ALT/SGPT) < 6 U/L (14-59) Alkaline Phosphatase 100 U/L (46-116) Total Protein 6.4 g/dL (6.4-8.2) Albumin 2.0 g/dL (3.4-5.0) Albumin/Globulin Ratio 0.5 (1.0-1.7) Glucose (Fingerstick) 158 mg/dL (70-99) 130 mg/dL (70-99) Brief Hospital Course Ms. Cheng is a 81 old female who presented with: Malfunctioning tunneled hemodialysis catheter ESRD on HD Normocytic anemia DM2 Severe malnutrition Patient is a 81-year-old female with past medical history ESRD on HD M/W/, who presents from her dialysis center due to a malfunctioning tunneled dialysis catheter. On 06/22/2021 she had revision of left arm brachial artery to cephalic vein fistula. Patient states that she was only able to complete 3 of her scheduled 4 hours of dialysis because of possible malfunctioning her catheter in her right chest wall on Friday. When she followed up on Friday she was unable to dialyze her due to a malfunctioning catheter and instructed her to return today to see if they could manipulate the catheter to working. Today again her catheter was unable to be used for dialysis, so she was sent to the ED. labs on admission showed hemoglobin 8.7, hematocrit 27.4, sodium 148, BUN 47, creatinine 4.4, albumin 2.0, CBG 100. She will be admitted with IR and nephrology for further medical management. 06/27: Patient seen and evaluated at bedside. She had tunneled dialysis catheter replaced by IR. She is scheduled for dialysis today. Barring any setbacks with new catheter she will discharge home with family care. Will prepare discharge accordingly. Greater than 30 minutes spent managing the discharge of this patient. Discharge Information Condition at Discharge: Improved Disposition/Orders: D/C to Home w/ HH Scheduled Aspirin (Aspirin) 81 Mg Tab.chew, 1 TAB PO DAILY for A-fib prophylaxis, #30 Ref 3 Prescribed by: TIAN NYE MD on 12/26/20 1313 Last Action: Reviewed on 06/26/211949 by CHEIKH CABRAL Atorvastatin Calcium (Atorvastatin Calcium) 40 Mg Tablet, 1 TAB PO QHS, #90 Ref 3 (Reported) Entered as Reported by: RADHA SIDHU on 04/01/16 1143 Last Action: Reviewed on 06/26/211949 by CHEIKH CABRAL Ergocalciferol (Vitamin D2) (Vitamin D2) 50,000 Unit Capsule, 1 CAP PO WEEKLY, #4 Ref 5 (Reported) Entered as Reported by: JOELLEN GARBER on 06/21/16 0712 Last Action: Reviewed on 06/26/211949 by CHEIKH CABRAL Ferrous Sulfate (Feosol) 325 Mg Tablet, 325 MG PO BIDWMEALS for iron deficiency anemia for 30 Days, #60 Prescribed by: JASON TILLEY MD on 10/21/19942 Last Action: Reviewed on 06/26/211949 by CHEIKH CABRAL Insulin Aspart (Novolog) 100 Unit/1 Ml Cartridge, 5 UNIT SQ TIDAC for dm for 30 Days, #1 Prescribed by: NARCISO SHIELDS on 04/17/21 1021 Last Action: Reviewed on 06/26/211949 by CHEIKH CABRAL Lactobacillus Rhamnosus Gg (Culturelle) 1 Each Cap.sprink, 1 CAP PO BID for probiotic for 30 Days, #60 Prescribed by: JASON TILLEY MD on 10/21/19942 Last Action: Reviewed on 06/26/211949 by CHEIKH CABRAL Nystatin (Nystop) 60 Gm Powder, 1 VU TP QID for yeast infection for 15 Days, #1 Prescribed by: JASON TILLEY MD on 10/21/19942 Last Action: Reviewed on 06/26/211949 by CHEIKH CABRAL Pantoprazole Sodium (Pantoprazole Sodium ) 40 Mg Tablet.dr, 1 TAB PO DAILY, #30 Ref 3 (Reported) Entered as Reported by: RADHA SIDHU on 04/01/16 1143 Last Action: Reviewed on 06/26/211949 by CHEIKH CABRAL Scheduled PRN Acetaminophen (Tylenol) 325 Mg Tablet, 1-2 TAB PO QID PRN for PAIN, #60 Prescribed by: LILI SCHAEFER on 09/09/19 0954 Last Action: Reviewed on 06/26/211949 by CHEIKH CABRAL Polyethylene Glycol 3350 (Polyethylene Glycol 3350) 17 Gm Powd.pack, 17 GM PO DAILY PRN for CONSTIPATION for 30 Days, #30 Ref 1 Prescribed by: TIAN NYE MD on 12/26/20 1313 Last Action: Reviewed on 06/26/211949 by CHEIKH CABRAL Discontinued Medications Insulin Glargine,Hum.rec.anlog (Lantus Solostar) 100 Unit/1 Ml Insuln.pen, 30 UNIT SQ QHS for control diabetes, #15 Ref 3 (Reported) Entered as Reported by: MARLENE GARCIA on 06/21/21 1211 Last Action: Discontinued on 06/26/211949 by CHEIKH CABRAL Justicifation of Admission Dx: Justifications for Admission: Justification of Admission Dx: Yes Acute Renal Failure: RF Can't Be Managed Outpt Chronic Renal Failure: Renail Failure TIAN NYE MD Jun 27, 2021 13:03
--- NOTE | 2021-06-27 14:11 | RAD ---
Procedure: Tunneled dialysis catheter placement, and removal of existing tunnel hemodialysis catheter with fluoroscopy. Indication: Adult female with indwelling dialysis catheter with normal function. Antiboitic: Antibiotic was administered intravenously within 1 hour of the procedure start time. Sedation: Conscious sedation using a combination of Versed and fentanyl was provided for 35 minutes, including continuous monitoring of the patients heart rate, rhythm, blood pressure, oxygen saturation and level of arousability by a trained independent observer. Sterility: All elements of maximal sterile barrier technique including the use of a cap, mask, steril e gown, sterile gloves, large sterile sheet, appropriate hand hygiene, and 2% chlorhexidine for cutan eous antisepsis (or acceptable alternative antiseptic per current guidelines) were followed for this procedure. Exposure: Kerma-Area Product: 5 Gycm2 Technique and Findings: Following informed consent, the patient was prepped and draped in the usual s terile fashion. All elements of maximum sterile barrier technique were employed. Fluoroscopy over the existing catheter revealed the catheter to be intact. Manual flows were assessed and found to be poo r within the venous port. Attempts to reposition the catheter into effective location were unsuccessf ul. 2% lidocaine was used to achieve local anesthesia over the right neck. Under ultrasound guidance, a 21-gauge micropuncture needle was used to gain access to the right internal jugular vein. This ve in was seen to be widely patent. A hardcopy ultrasound image was recorded. A small dermatotomy was m isiah and the needle was exchanged over a wire for a transitional sheath, used to guide an Amplatz wire into the IVC. Attention was then turned to the anterior chest wall, which was copiously anesthetized with 2% lidocaine plus epinephrine. A small incision was made and a 23 cm palindrome dialysis cathet er was tunneled subcutaneously towards the right neck dermatotomy. A transitional sheath was exchange d for serial dilators followed by a peel-away sheath which was inserted under fluoroscopic control. T he catheter was then deployed through the peel-away sheath. Fluoroscopy confirmed that the distal ti p resided in the proximal right atrium. The catheter flushed and aspirated with ease and was then pac ked with heparin and sutured to the skin. The right neck dermatotomy was closed with Dermabond. The pre-existing tunneled hemodialysis catheter was then removed and hemostasis was achieved with man ual compression. The patient tolerated the procedure well and left the radiology department in stable condition. Impression: 1. Successful placement of a right IJ tunneled dialysis catheter as described. 2. Removal of the pre-existing right IJ hemodialysis catheter without complication. Electronically signed by: Miguel Chung MD (06/27/2021 2:09 PM) [id number]
[2021-06-27] MEDS: INSULIN GLARGINE SYRINGE. SQ SCH (20:45)
[2021-06-27] MEDS: ATORVASTATIN CALCIUM 40 MG TABLET. PO SCH (20:45)
[2021-06-28 03:00] VITALS: BP 100/47
[2021-06-28 05:09] LABS: BASO # 0.1 x10^3/uL (0.0-0.2); BASO % 1 % (0-3); EOS # 0.5 x10^3/uL (0.0-0.7); EOS % 9 % (0-3); HEMOGLOBIN 8.6 g/dL (12.0-15.5); LYMPH # 1.3 x10^3/uL (1.0-4.8); LYMPH % 24 % (24-48); MEAN CORPUSCULAR HEMOGLOBIN 30 pg (25-35); MEAN CORPUSCULAR HGB CONC 32 g/dL (31-37); MEAN CORPUSCULAR VOLUME 95 fL (79-100); MONO # 0.4 x10^3/uL (0.0-1.1); MONO % 8 % (0-9); NEUT # 3.1 x10^3/uL (1.8-7.7); NEUT % 58 % (31-73); PLATELET COUNT 243 x10^3/uL (140-400); RED BLOOD COUNT 2.85 x10^6/uL (3.50-5.40); RED CELL DISTRIBUTION WIDTH 16.8 % (11.5-14.5); WHITE BLOOD COUNT 5.4 x10^3/uL (4.0-11.0)
[2021-06-28 05:49] LABS: CALCIUM 8.2 mg/dL (8.5-10.1); CREATININE 2.7 mg/dL (0.6-1.0); POTASSIUM 3.9 mmol/L (3.5-5.1)
[2021-06-28 07:00] VITALS: BP 105/52
[2021-06-28] MEDS: INSULIN LISPRO 300 UNITS/3 ML VIAL. SQ SCH ×3 (08:00→17:00)
[2021-06-28] MEDS ORDERED: FAMOTIDINE 20 MG TABLET. PO SCH (09:00)
--- NOTE | 2021-06-28 09:05 | PDOC ---
DATE OF SERVICE DATE: 06/28/21 TIME: 09:05 SUBJECTIVE ROS stable. No complaints No issues during dialysis yesterday OBJECTIVE Vital Signs Vital Signs Date Time Temp Pulse Resp B/P (MAP) Pulse Ox O2 Delivery O2 Flow Rate FiO2 06/28/21 07:00 98.0 88 18 105/52 (69) 98 Room Air 98.0 06/27/21 10:03 2.0 I & 0 Intake and Output 06/28/21 07:00 Intake Total 700 ml Balance 700 ml Intake Oral 700 ml # Voids 3 # Bowel Movements 2 PHYSICAL EXAM Physical Exam GGeneral Appearance: no apparent distress,resting comfortably Skin: warm Respiratory: bilateral CTA Heart: S1S2 Abdomen: soft, bowel sounds present Genitourinary: figueredo + Extremities: pulses present Neurology: alert Vital Signs Vital Signs Date Time Temp Pulse Resp B/P (MAP) Pulse Ox O2 Delivery O2 Flow Rate FiO2 06/27/21 07:00 97.9 89 16 134/37 (69) 93 97.9 06/26/21 20:00 Room Air DIAGNOSIS/ASSESSMENT Assessment & Plan ESRD- on HD MWF F @ [facility] , admitted for malfunctioning HDC; replaced 06/27/21 Dialyzed yesterday, currently no indication for dialysis today Access Tunneled HDC , replaced again 06/27 Was replaced at access Center last week On 06/22/2021 she had revision of left arm brachial artery to cephalic vein fistula. No issues with TDC yesterday . If dced to resume HD at OP unit tomorrow Hydronephrosis - S/P Bilateral Ureteral stents fu with Urology Anemia- Gets IV Fe an BEATRICE on Dialysis days as OP per Protocol HX of PAfib Anemia - On BEATRICE ,Recd IV Venofer ; currently on Retacrit HTN- currently Low normal . DM II COMMENT/RELEVANT DATA Meds Current Medications Medications (Trade) Dose Ordered Sig/Angy Start Time Stop Time Status Last Admin Dose Admin Acetaminophen (Tylenol) 650 mg PRN Q6HRS PRN 06/26/21 17:00 Acetaminophen/ Hydrocodone Bitart (Lortab 5/325) 1 tab PRN Q4HRS PRN 06/26/21 17:00 Aspirin (Aspirin Chewable) 81 mg DAILY 06/26/21 18:00 Atorvastatin Calcium (Lipitor) 40 mg QHS 06/26/21 21:00 06/27/21 20:45 40 MG Cefazolin Sodium/ Dextrose 50 ml @ 100 mls/hr 1X ONCE 06/27/21 09:45 06/27/21 10:14 DC 06/27/21 09:57 100 MLS/HR Ergocalciferol (Vitamin D2) 50,000 unit WEEKLY 07/03/21 09:00 Famotidine (Pepcid) 20 mg Q48H 06/28/21 09:00 Fentanyl Citrate (Fentanyl 2ml Vial) 100 mcg 1X ONCE 06/27/21 09:45 06/27/21 09:46 DC 06/27/21 09:58 75 MCG Ferrous Sulfate (Feosol) 325 mg BIDWMEALS 06/26/21 18:00 06/27/21 20:45 325 MG Heparin Sodium (Porcine) (Heparin Sodium) 2,800 unit 1X ONCE 06/27/21 10:30 06/27/21 10:31 DC 06/27/21 10:30 2,800 UNIT Info (PHARMACY MONITORING -- do not chart) 1 each PRN DAILY PRN 06/27/21 16:30 Insulin Glargine (Lantus Syringe) 30 unit QHS 06/26/21 21:00 Insulin Human Lispro (HumaLOG) 5 units TIDWMEALS 06/27/21 08:00 Lidocaine/ Epinephrine (LIDOCAINE 1%-EPI 1:100,000 Multi-Dose) 20 ml 1X ONCE 06/27/21 09:45 06/27/21 09:46 DC 06/27/21 10:00 10 ML Midazolam HCl (Versed) 2 mg 1X ONCE 06/27/21 09:45 06/27/21 09:46 DC 06/27/21 10:00 1 MG Nystatin (Nystop) 1 melissa QID 06/26/21 21:00 06/27/21 20:46 1 MELISSA Ondansetron HCl (Zofran) 4 mg PRN Q6HRS PRN 06/26/21 17:00 Oxycodone/ Acetaminophen (Percocet 5/325) 2 tab 1X ONCE 06/26/21 12:30 06/26/21 12:31 Cancel Pantoprazole Sodium (Protonix) 40 mg DAILY 06/26/21 18:00 06/27/21 16:44 DC 06/27/21 12:51 40 MG Pharmacy Consult (C.diff Med Screen By Rx) 1 each 1X ONCE 06/26/21 19:45 06/26/21 19:46 UNV Polyethylene Glycol (miraLAX PACKET) 17 gm DAILY PRN 06/26/21 17:15 Sodium Chloride 1,000 ml @ 400 mls/hr Q2H30M PRN 06/27/21 11:00 06/27/21 22:59 DC Zolpidem Tartrate (Ambien) 5 mg PRN QHS PRN 06/26/21 17:00 Lab Laboratory Tests Test 06/27/21 10:42 06/27/21 16:55 06/27/21 20:38 06/28/21 04:30 Glucose (Fingerstick) 130 mg/dL (70-99) 126 mg/dL (70-99) Hepatitis B Surface Antigen Nonreactive (Nonreactive) Hepatitis B Surface Antibody Nonreactive White Blood Count 5.4 x10^3/uL (4.0-11.0) Red Blood Count 2.85 x10^6/uL (3.50-5.40) Hemoglobin 8.6 g/dL (12.0-15.5) Hematocrit 27.0 % (36.0-47.0) Mean Corpuscular Volume 95 fL (79-100) Mean Corpuscular Hemoglobin 30 pg (25-35) Mean Corpuscular Hemoglobin Concent 32 g/dL (31-37) Red Cell Distribution Width 16.8 % (11.5-14.5) Platelet Count 243 x10^3/uL (140-400) Neutrophils (%) (Auto) 58 % (31-73) Lymphocytes (%) (Auto) 24 % (24-48) Monocytes (%) (Auto) 8 % (0-9) Eosinophils (%) (Auto) 9 % (0-3) Basophils (%) (Auto) 1 % (0-3) Neutrophils # (Auto) 3.1 x10^3/uL (1.8-7.7) Lymphocytes # (Auto) 1.3 x10^3/uL (1.0-4.8) Monocytes # (Auto) 0.4 x10^3/uL (0.0-1.1) Eosinophils # (Auto) 0.5 x10^3/uL (0.0-0.7) Basophils # (Auto) 0.1 x10^3/uL (0.0-0.2) Sodium Level 143 mmol/L (136-145) Potassium Level 3.9 mmol/L (3.5-5.1) Chloride Level 106 mmol/L (98-107) Carbon Dioxide Level 28 mmol/L (21-32) Anion Gap 9 (6-14) Blood Urea Nitrogen 20 mg/dL (7-20) Creatinine 2.7 mg/dL (0.6-1.0) Estimated GFR (Cockcroft-Gault) 17.0 Glucose Level 109 mg/dL (70-99) Calcium Level 8.2 mg/dL (8.5-10.1) Test 06/28/21 08:19 Glucose (Fingerstick) 105 mg/dL (70-99) Results All relevant outside records, renal labs, imaging studies, telemetry/EKG's were reviewed. Justicifation of Admission Dx: Justifications for Admission: Justification of Admission Dx: Yes Acute Renal Failure: RF Can't Be Managed Outpt Chronic Renal Failure: Renail Failure MEREDITH CULP MD Jun 28, 2021 09:05
[2021-06-28] MEDS: FERROUS SULFATE 325 MG TABLET. PO SCH ×2 (10:02→17:42)
[2021-06-28] MEDS: ASPIRIN CHEWABLE 81 MG TABLET. PO SCH (10:03)
[2021-06-28] MEDS: NYSTATIN TOPICAL POWDER 15GM BOTTLE. TP SCH ×3 (10:04→17:00)
[2021-06-28] MEDS: HEPARIN for SUB-Q USE 5,000 UNIT/ML VIAL. SQ SCH (10:09)
--- NOTE | 2021-06-28 10:10 | NUR ---
Nurse's note: The patient wanted to rest this morning, requested to take meds later. She also refused to eat breakfast; scheduled insulin not administered.
[2021-06-28 11:00] VITALS: BP 118/53
--- NOTE | 2021-06-28 12:31 | SNU/HH DC ---
DISCHARGE WITH HOME HEALTH DISCHARGE INFORMATION: Discharge Date: Jun 28, 2021 Final Diagnosis: Problems Medical Problems: (1) Malfunction of device Status: Acute Condition on Discharge: Stable CODE STATUS: Code Status: Full HOME HEALTH: Face to Face: I certify this patient is under my care and that I, or a nurse practitioner or physician's occupational therapist assistant working with me, had a face to face encounter that meets the physician face to face encounter requirements with this patient on 06/28/2021. RN For Eval/Treatment: Yes Physical Therapy For: Evalulation/Treatment Occupational Therapy For: Evaluation/Treatment Pt Meets Homebound Status: Poor coordination w/ amb., Extreme weakness w/ amb. POST DISCHARGE ORDERS: Activity Instructions for Disc: Activity as tolerated Weight Bearing Status after Di: As tolerated DIET AFTER DISCHARGE: Cardiac Wound/Incision Care: Ice to area for comfort, No wound care needed CHECKS AFTER DISCHARGE: Checks after discharge: Check blood press - daily, Check blood sugar, ac/hs, Check your Temp as needed Comment: IJ\chest TREATMENT/EQUIPMENT ORDERS: Adaptive Equipment Issued: Bath Bench, Raised toilet seat w/arms, Walker CERTIFICATION STATEMENT: Certification Statement: Certification Statement: Based on the above finding, I certify that this patient is confined to the home and needs intermittent fpc care, physical therapy and/or speech therapy, or continues to need occupational therapy.~ This patient is under my care, and I have initiated the establishment of the plan of care.~ This patient will be followed by myself or a community physician who will periodically review the plan of care. Home Meds Active Scripts Insulin Aspart (NOVOLOG) 100 Unit/1 Ml Cartridge, 5 UNIT SQ TIDAC for dm for 30 Days, #1 EACH Prov:NARCISO SHIELDS III DO 04/17/21 Polyethylene Glycol 3350 (POLYETHYLENE GLYCOL 3350) 17 Gm Powd.pack, 17 GM PO DAILY PRN for CONSTIPATION for 30 Days, #30 PKT 1 Refill Prov:TIAN NYE MD 12/26/20 Aspirin (ASPIRIN) 81 Mg Tab.chew, 1 TAB PO DAILY for A-fib prophylaxis, #30 TAB 3 Refills Prov:TIAN NYE MD 12/26/20 Nystatin (NYSTOP) 60 Gm Powder, 1 VU TP QID for yeast infection for 15 Days, #1 MISC Prov:JASON TILLEY MD 10/21/19 Lactobacillus Rhamnosus Gg (CULTURELLE) 1 Each Cap.sprink, 1 CAP PO BID for probiotic for 30 Days, #60 CAP Prov:JASON TILLEY MD 10/21/19 Ferrous Sulfate (FEOSOL) 325 Mg Tablet, 325 MG PO BIDWMEALS for iron deficiency anemia for 30 Days, #60 TAB Prov:JASON TILLEY MD 10/21/19 Acetaminophen (TYLENOL) 325 Mg Tablet, 1-2 TAB PO QID PRN for PAIN, #60 TAB Prov:LILI SCHAEFER MD 09/09/19 Reported Medications Ergocalciferol (Vitamin D2) (VITAMIN D2) 50,000 Unit Capsule, 1 CAP PO WEEKLY, #4 CAP 5 Refills 06/21/16 Pantoprazole Sodium (PANTOPRAZOLE SODIUM ) 40 Mg Tablet.dr, 1 TAB PO DAILY, #30 TAB 3 Refills 04/01/16 Atorvastatin Calcium (ATORVASTATIN CALCIUM) 40 Mg Tablet, 1 TAB PO QHS, #90 TAB 3 Refills 04/01/16 Discontinued Reported Medications Insulin Glargine,Hum.rec.anlog (LANTUS SOLOSTAR) 100 Unit/1 Ml Insuln.pen, 30 UNIT SQ QHS for control diabetes, #15 ML 3 Refills 06/21/21 TIAN NYE MD Jun 28, 2021 12:31
--- NOTE | 2021-06-28 12:57 | PDOC3 ---
Discharge Summary Visit Information Date of Admission: Jun 26, 2021 Date of Discharge: Jun 27, 2021 Final Diagnosis Problems Medical Problems: (1) Malfunction of device Status: Acute Brief Hospital Course Allergies Allergies Coded Allergies Type Severity Reaction Last Updated Verified I S O L A T I O N *CONTACT* Allergy Unknown 06/06/21 Yes No Known Medication Allergies Allergy Unknown 06/26/21 Yes Vital Signs Vital Signs Date Time Temp Pulse Resp B/P (MAP) Pulse Ox O2 Delivery O2 Flow Rate FiO2 06/28/21 11:00 97.3 77 18 118/53 (74) 97 Room Air 97.3 06/27/21 10:03 2.0 Lab Results Laboratory Tests Test 06/26/21 14:40 06/26/21 21:32 06/27/21 05:30 06/27/21 10:42 White Blood Count 6.5 x10^3/uL (4.0-11.0) 5.6 x10^3/uL (4.0-11.0) Red Blood Count 2.87 x10^6/uL (3.50-5.40) 2.70 x10^6/uL (3.50-5.40) Hemoglobin 8.7 g/dL (12.0-15.5) 8.3 g/dL (12.0-15.5) Hematocrit 27.4 % (36.0-47.0) 25.8 % (36.0-47.0) Mean Corpuscular Volume 95 fL (79-100) 96 fL (79-100) Mean Corpuscular Hemoglobin 30 pg (25-35) 31 pg (25-35) Mean Corpuscular Hemoglobin Concent 32 g/dL (31-37) 32 g/dL (31-37) Red Cell Distribution Width 17.1 % (11.5-14.5) 17.1 % (11.5-14.5) Platelet Count 302 x10^3/uL (140-400) 294 x10^3/uL (140-400) Neutrophils (%) (Auto) 81 % (31-73) 56 % (31-73) Lymphocytes (%) (Auto) 13 % (24-48) 27 % (24-48) Monocytes (%) (Auto) 4 % (0-9) 7 % (0-9) Eosinophils (%) (Auto) 2 % (0-3) 10 % (0-3) Basophils (%) (Auto) 1 % (0-3) 1 % (0-3) Neutrophils # (Auto) 5.3 x10^3/uL (1.8-7.7) 3.1 x10^3/uL (1.8-7.7) Lymphocytes # (Auto) 0.8 x10^3/uL (1.0-4.8) 1.5 x10^3/uL (1.0-4.8) Monocytes # (Auto) 0.3 x10^3/uL (0.0-1.1) 0.4 x10^3/uL (0.0-1.1) Eosinophils # (Auto) 0.1 x10^3/uL (0.0-0.7) 0.5 x10^3/uL (0.0-0.7) Basophils # (Auto) 0.1 x10^3/uL (0.0-0.2) 0.1 x10^3/uL (0.0-0.2) Prothrombin Time 14.9 SEC (11.7-14.0) Prothromb Time International Ratio 1.2 (0.8-1.1) Activated Partial Thromboplast Time 28 SEC (24-38) Sodium Level 148 mmol/L (136-145) 144 mmol/L (136-145) Potassium Level 4.4 mmol/L (3.5-5.1) 3.9 mmol/L (3.5-5.1) Chloride Level 111 mmol/L (98-107) 109 mmol/L (98-107) Carbon Dioxide Level 28 mmol/L (21-32) 23 mmol/L (21-32) Anion Gap 9 (6-14) 12 (6-14) Blood Urea Nitrogen 41 mg/dL (7-20) 42 mg/dL (7-20) Creatinine 4.4 mg/dL (0.6-1.0) 4.7 mg/dL (0.6-1.0) Estimated GFR (Cockcroft-Gault) 9.7 8.9 BUN/Creatinine Ratio 9 (6-20) Glucose Level 100 mg/dL (70-99) 107 mg/dL (70-99) Calcium Level 8.7 mg/dL (8.5-10.1) 8.4 mg/dL (8.5-10.1) Total Bilirubin 0.3 mg/dL (0.2-1.0) Aspartate Amino Transf (AST/SGOT) 18 U/L (15-37) Alanine Aminotransferase (ALT/SGPT) < 6 U/L (14-59) Alkaline Phosphatase 100 U/L (46-116) Total Protein 6.4 g/dL (6.4-8.2) Albumin 2.0 g/dL (3.4-5.0) Albumin/Globulin Ratio 0.5 (1.0-1.7) Glucose (Fingerstick) 158 mg/dL (70-99) 130 mg/dL (70-99) Test 06/27/21 16:55 06/27/21 20:38 06/28/21 04:30 06/28/21 08:19 Hepatitis B Surface Antigen Nonreactive (Nonreactive) Hepatitis B Surface Antibody Nonreactive Glucose (Fingerstick) 126 mg/dL (70-99) 105 mg/dL (70-99) White Blood Count 5.4 x10^3/uL (4.0-11.0) Red Blood Count 2.85 x10^6/uL (3.50-5.40) Hemoglobin 8.6 g/dL (12.0-15.5) Hematocrit 27.0 % (36.0-47.0) Mean Corpuscular Volume 95 fL (79-100) Mean Corpuscular Hemoglobin 30 pg (25-35) Mean Corpuscular Hemoglobin Concent 32 g/dL (31-37) Red Cell Distribution Width 16.8 % (11.5-14.5) Platelet Count 243 x10^3/uL (140-400) Neutrophils (%) (Auto) 58 % (31-73) Lymphocytes (%) (Auto) 24 % (24-48) Monocytes (%) (Auto) 8 % (0-9) Eosinophils (%) (Auto) 9 % (0-3) Basophils (%) (Auto) 1 % (0-3) Neutrophils # (Auto) 3.1 x10^3/uL (1.8-7.7) Lymphocytes # (Auto) 1.3 x10^3/uL (1.0-4.8) Monocytes # (Auto) 0.4 x10^3/uL (0.0-1.1) Eosinophils # (Auto) 0.5 x10^3/uL (0.0-0.7) Basophils # (Auto) 0.1 x10^3/uL (0.0-0.2) Sodium Level 143 mmol/L (136-145) Potassium Level 3.9 mmol/L (3.5-5.1) Chloride Level 106 mmol/L (98-107) Carbon Dioxide Level 28 mmol/L (21-32) Anion Gap 9 (6-14) Blood Urea Nitrogen 20 mg/dL (7-20) Creatinine 2.7 mg/dL (0.6-1.0) Estimated GFR (Cockcroft-Gault) 17.0 Glucose Level 109 mg/dL (70-99) Calcium Level 8.2 mg/dL (8.5-10.1) Test 06/28/21 11:45 Glucose (Fingerstick) 106 mg/dL (70-99) Laboratory Tests Test 06/27/21 16:55 06/27/21 20:38 06/28/21 04:30 06/28/21 08:19 Hepatitis B Surface Antigen Nonreactive (Nonreactive) Hepatitis B Surface Antibody Nonreactive Glucose (Fingerstick) 126 mg/dL (70-99) 105 mg/dL (70-99) White Blood Count 5.4 x10^3/uL (4.0-11.0) Red Blood Count 2.85 x10^6/uL (3.50-5.40) Hemoglobin 8.6 g/dL (12.0-15.5) Hematocrit 27.0 % (36.0-47.0) Mean Corpuscular Volume 95 fL (79-100) Mean Corpuscular Hemoglobin 30 pg (25-35) Mean Corpuscular Hemoglobin Concent 32 g/dL (31-37) Red Cell Distribution Width 16.8 % (11.5-14.5) Platelet Count 243 x10^3/uL (140-400) Neutrophils (%) (Auto) 58 % (31-73) Lymphocytes (%) (Auto) 24 % (24-48) Monocytes (%) (Auto) 8 % (0-9) Eosinophils (%) (Auto) 9 % (0-3) Basophils (%) (Auto) 1 % (0-3) Neutrophils # (Auto) 3.1 x10^3/uL (1.8-7.7) Lymphocytes # (Auto) 1.3 x10^3/uL (1.0-4.8) Monocytes # (Auto) 0.4 x10^3/uL (0.0-1.1) Eosinophils # (Auto) 0.5 x10^3/uL (0.0-0.7) Basophils # (Auto) 0.1 x10^3/uL (0.0-0.2) Sodium Level 143 mmol/L (136-145) Potassium Level 3.9 mmol/L (3.5-5.1) Chloride Level 106 mmol/L (98-107) Carbon Dioxide Level 28 mmol/L (21-32) Anion Gap 9 (6-14) Blood Urea Nitrogen 20 mg/dL (7-20) Creatinine 2.7 mg/dL (0.6-1.0) Estimated GFR (Cockcroft-Gault) 17.0 Glucose Level 109 mg/dL (70-99) Calcium Level 8.2 mg/dL (8.5-10.1) Test 06/28/21 11:45 Glucose (Fingerstick) 106 mg/dL (70-99) Brief Hospital Course Malfunctioning tunneled hemodialysis catheter ESRD on HD Normocytic anemia DM2 Severe malnutrition History of Present Illness 06/27: Patient seen and evaluated at bedside. She had tunneled dialysis catheter replaced by IR. She is scheduled for dialysis today. Barring any setbacks with new catheter she will discharge home with family care. Will prepare discharge accordingly. Greater than 30 minutes spent managing the discharge of this patient. 06/28: Patient evaluated bedside. No complaints, she feels comfortable discharging home today with home health. I will write for home health orders. Greater than 30 minutes spent managing the discharge this patient Discharge Information Condition at Discharge: Stable Disposition/Orders: D/C to Home w/ HH Scheduled Aspirin (Aspirin) 81 Mg Tab.chew, 1 TAB PO DAILY for A-fib prophylaxis, #30 Ref 3 Prescribed by: TIAN NYE MD on 12/26/20 1313 Last Action: Reviewed on 06/26/211949 by CHEIKH CABRAL Atorvastatin Calcium (Atorvastatin Calcium) 40 Mg Tablet, 1 TAB PO QHS, #90 Ref 3 (Reported) Entered as Reported by: RADHA SIDHU on 04/01/16 1143 Last Action: Reviewed on 06/26/211949 by CHEIKH CABRAL Ergocalciferol (Vitamin D2) (Vitamin D2) 50,000 Unit Capsule, 1 CAP PO WEEKLY, #4 Ref 5 (Reported) Entered as Reported by: JOELLEN GARBER on 06/21/16 0712 Last Action: Reviewed on 06/26/211949 by CHEIKH CABRAL Ferrous Sulfate (Feosol) 325 Mg Tablet, 325 MG PO BIDWMEALS for iron deficiency anemia for 30 Days, #60 Prescribed by: JASON TILLEY MD on 10/21/1943 Last Action: Reviewed on 06/26/211949 by CHEIKH CABRAL Insulin Aspart (Novolog) 100 Unit/1 Ml Cartridge, 5 UNIT SQ TIDAC for dm for 30 Days, #1 Prescribed by: NARCISO SHIELDS on 04/17/21 1021 Last Action: Reviewed on 06/26/211949 by CHEIKH CABRAL Lactobacillus Rhamnosus Gg (Culturelle) 1 Each Cap.sprink, 1 CAP PO BID for probiotic for 30 Days, #60 Prescribed by: JASON TILLEY MD on 10/21/19942 Last Action: Reviewed on 06/26/211949 by CHEIKH CABRAL Nystatin (Nystop) 60 Gm Powder, 1 VU TP QID for yeast infection for 15 Days, #1 Prescribed by: JASON TILLEY MD on 10/21/19942 Last Action: Reviewed on 06/26/211949 by CHEIKH CABRAL Pantoprazole Sodium (Pantoprazole Sodium ) 40 Mg Tablet.dr, 1 TAB PO DAILY, #30 Ref 3 (Reported) Entered as Reported by: RADHA SIDHU on 04/01/16 1143 Last Action: Reviewed on 06/26/211949 by CHEIKH CABRAL Scheduled PRN Acetaminophen (Tylenol) 325 Mg Tablet, 1-2 TAB PO QID PRN for PAIN, #60 Prescribed by: LILI SCHAEFER on 09/09/19 0954 Last Action: Reviewed on 06/26/211949 by CHEIKH CABRAL Polyethylene Glycol 3350 (Polyethylene Glycol 3350) 17 Gm Powd.pack, 17 GM PO DAILY PRN for CONSTIPATION for 30 Days, #30 Ref 1 Prescribed by: TIAN NYE MD on 12/26/20 1313 Last Action: Reviewed on 06/26/211949 by CHEIKH CABRAL Discontinued Medications Insulin Glargine,Hum.rec.anlog (Lantus Solostar) 100 Unit/1 Ml Insuln.pen, 30 UNIT SQ QHS for control diabetes, #15 Ref 3 (Reported) Entered as Reported by: MARLENE GARCIA on 06/21/21 1211 Last Action: Discontinued on 06/26/211949 by CHEIKH CABRAL Justicifation of Admission Dx: Justifications for Admission: Justification of Admission Dx: Yes Acute Renal Failure: RF Can't Be Managed Outpt Chronic Renal Failure: Renail Failure TIAN NYE MD Jun 28, 2021 12:57
--- NOTE | 2021-06-28 12:57 | PDOC ---
[employer] PROGRESS NOTE Date of Service DOS: DATE: 06/28/21 TIME: 12:53 Chief Complaint Chief Complaint Malfunctioning tunneled hemodialysis catheter ESRD on HD Normocytic anemia DM2 Severe malnutrition History of Present Illness History of Present Illness 06/27: Patient seen and evaluated at bedside. She had tunneled dialysis catheter replaced by IR. She is scheduled for dialysis today. Barring any setbacks with new catheter she will discharge home with family care. Will prepare discharge accordingly. Greater than 30 minutes spent managing the discharge of this patient. 06/28: Patient evaluated bedside. No complaints, she feels comfortable discharging home today with home health. I will write for home health orders. Greater than 30 minutes spent managing the discharge this patient Vitals/I&O Vitals/I&O: Vital Signs Date Time Temp Pulse Resp B/P (MAP) Pulse Ox O2 Delivery O2 Flow Rate FiO2 06/28/21 11:00 97.3 77 18 118/53 (74) 97 Room Air 97.3 06/27/21 10:03 2.0 I & O 06/27/21 06/27/21 06/28/21 15:00 23:00 07:00 Intake Total 500 ml 100 ml 100 ml Balance 500 ml 100 ml 100 ml Physical Exam General: Alert, Oriented X3, Cooperative Heart: Regular rate Lungs: Clear Abdomen: Soft Extremities: No cyanosis Skin: No rashes Labs Labs: Laboratory Tests Test 06/27/21 16:55 06/27/21 20:38 06/28/21 04:30 06/28/21 08:19 Hepatitis B Surface Antigen Nonreactive (Nonreactive) Hepatitis B Surface Antibody Nonreactive Glucose (Fingerstick) 126 mg/dL (70-99) 105 mg/dL (70-99) White Blood Count 5.4 x10^3/uL (4.0-11.0) Red Blood Count 2.85 x10^6/uL (3.50-5.40) Hemoglobin 8.6 g/dL (12.0-15.5) Hematocrit 27.0 % (36.0-47.0) Mean Corpuscular Volume 95 fL (79-100) Mean Corpuscular Hemoglobin 30 pg (25-35) Mean Corpuscular Hemoglobin Concent 32 g/dL (31-37) Red Cell Distribution Width 16.8 % (11.5-14.5) Platelet Count 243 x10^3/uL (140-400) Neutrophils (%) (Auto) 58 % (31-73) Lymphocytes (%) (Auto) 24 % (24-48) Monocytes (%) (Auto) 8 % (0-9) Eosinophils (%) (Auto) 9 % (0-3) Basophils (%) (Auto) 1 % (0-3) Neutrophils # (Auto) 3.1 x10^3/uL (1.8-7.7) Lymphocytes # (Auto) 1.3 x10^3/uL (1.0-4.8) Monocytes # (Auto) 0.4 x10^3/uL (0.0-1.1) Eosinophils # (Auto) 0.5 x10^3/uL (0.0-0.7) Basophils # (Auto) 0.1 x10^3/uL (0.0-0.2) Sodium Level 143 mmol/L (136-145) Potassium Level 3.9 mmol/L (3.5-5.1) Chloride Level 106 mmol/L (98-107) Carbon Dioxide Level 28 mmol/L (21-32) Anion Gap 9 (6-14) Blood Urea Nitrogen 20 mg/dL (7-20) Creatinine 2.7 mg/dL (0.6-1.0) Estimated GFR (Cockcroft-Gault) 17.0 Glucose Level 109 mg/dL (70-99) Calcium Level 8.2 mg/dL (8.5-10.1) Test 06/28/21 11:45 Glucose (Fingerstick) 106 mg/dL (70-99) Assessment and Plan Assessmemt and Plan Problems Medical Problems: (1) Malfunction of device Status: Acute Comment Review of Relevant I have reviewed the following items edis (where applicable) has been applied. Medications: Current Medications Medications (Trade) Dose Ordered Sig/Angy Route PRN Reason Start Time Stop Time Status Last Admin Dose Admin Famotidine (Pepcid) 20 mg Q48H PO 06/28/21 09:00 06/28/21 10:03 Justifications for Admission Other Justification TIAN NYE MD Jun 28, 2021 12:57
--- NOTE | 2021-06-28 14:24 | NUR ---
SS following for discharge planning. SS reviewed pt chart and discussed with pt RN. Pt is currently on room air. Discharge orders received for home with home healthcare and phoned and faxed to [facility], ; fax [phone]. Pt will discharge today and return to home between 1800 and 1830 via [facility], . [facility] notified of discharge. Pt's RN notified.
[2021-06-28 15:00] VITALS: BP 107/48
--- NOTE | 2021-06-28 19:37 | NUR ---
Discharge Note: MERRICK ARRIAGA Discharge instructions and discharge home medications reviewed with Patient and a copy given. All questions have been answered and understanding verbalized. The following instructions and handouts were given: Home meds as directed Resume dialysis as scheduled Follow up with PCP in a week Discontinued lines and drains: IV intact, no complications noted. Patient discharged to [facility]
[2021-07-03] MEDS ORDERED: ERGOCALCIFEROL (VITAMIN D2) 50,000 UNIT CAPSULE. PO SCH (09:00)
== END 2021-06-28 19:30 | disposition home health service (06) | DRG 673 ==
LOC: ER 12:29 → ED HOLD 14:14 → 2 NORTH 16:45
PROVIDERS: ADMIT Family Medicine; ATTEND Family Medicine
PROC: 0JH63XZ Insertion of Tunneled Vascular Access Device into Chest Subcutaneous Tissue and Fascia, Percutaneous Approach (ICD-10-PCS; principal; 2021-06-27)
PROC: 0JPT3XZ Removal of Tunneled Vascular Access Device from Trunk Subcutaneous Tissue and Fascia, Percutaneous Approach (ICD-10-PCS; 2021-06-27)
PROC: 02PA33Z Removal of Infusion Device from Heart, Percutaneous Approach (ICD-10-PCS; 2021-06-27)
PROC: 02H633Z Insertion of Infusion Device into Right Atrium, Percutaneous Approach (ICD-10-PCS; 2021-06-27)
PROC: B518ZZA Fluoroscopy of Superior Vena Cava, Guidance (ICD-10-PCS; 2021-06-27)
PROC: B548ZZA Ultrasonography of Superior Vena Cava, Guidance (ICD-10-PCS; 2021-06-27)
PROC: 5A1D70Z Performance of Urinary Filtration, Intermittent, Less than 6 Hours Per Day (ICD-10-PCS; 2021-06-27)
DX: T82.41XA Breakdown (mechanical) of vascular dialysis catheter, initial encounter (principal); E43 Unspecified severe protein-calorie malnutrition; N18.6 End stage renal disease; I13.2 Hypertensive heart and chronic kidney disease with heart failure and with stage 5 chronic kidney disease, or end stage renal disease; N13.30 Unspecified hydronephrosis; E11.22 Type 2 diabetes mellitus with diabetic chronic kidney disease; E78.00 Pure hypercholesterolemia, unspecified; E78.5 Hyperlipidemia, unspecified; I50.9 Heart failure, unspecified; Y71.2 Prosthetic and other implants, materials and accessory cardiovascular devices associated with adverse incidents; E11.42 Type 2 diabetes mellitus with diabetic polyneuropathy; K21.9 Gastro-esophageal reflux disease without esophagitis; D64.9 Anemia, unspecified; I48.0 Paroxysmal atrial fibrillation; Z79.4 Long term (current) use of insulin; Z82.49 Family history of ischemic heart disease and other diseases of the circulatory system; Z86.711 Personal history of pulmonary embolism; Z99.2 Dependence on renal dialysis; Z86.718 Personal history of other venous thrombosis and embolism; Z87.440 Personal history of urinary (tract) infections; Z87.01 Personal history of pneumonia (recurrent)
CPT/HCPCS: 36415; 36558; 36589; 76937; 77001; 80048; 80053; 82962; 85025; 85610; 85730; 86706; 87340; 93005; 96361; 96374; 99152; 99153; C1750; C1892; J0690; J1644; J1815; J2250; J3010; J3490; 99285-25; G0378

== ENCOUNTER 2021-07-09 14:05 | Inpatient (IN) | payer MEDICARE ==
[~2021-07-09] VITALS: Ht 165.1 cm; Wt 87.9 kg
[2021-07-09] MEDS ORDERED: IV NORMAL SALINE 250ML 250 ML IV ONE (14:30)
[2021-07-09 14:40] LABS: BASO # 0.1 x10^3/uL (0.0-0.2); BASO % 1 % (0-3); EOS # 0.1 x10^3/uL (0.0-0.7); EOS % 1 % (0-3); HEMATOCRIT 31.3 % (36.0-47.0); HEMOGLOBIN 10.1 g/dL (12.0-15.5); LYMPH # 1.2 x10^3/uL (1.0-4.8); LYMPH % 14 % (24-48); MEAN CORPUSCULAR HEMOGLOBIN 31 pg (25-35); MEAN CORPUSCULAR HGB CONC 32 g/dL (31-37); MEAN CORPUSCULAR VOLUME 95 fL (79-100); MONO # 0.7 x10^3/uL (0.0-1.1); MONO % 8 % (0-9); NEUT # 6.4 x10^3/uL (1.8-7.7); NEUT % 77 % (31-73); PLATELET COUNT 316 x10^3/uL (140-400); RED BLOOD COUNT 3.28 x10^6/uL (3.50-5.40); RED CELL DISTRIBUTION WIDTH 16.9 % (11.5-14.5); WHITE BLOOD COUNT 8.4 x10^3/uL (4.0-11.0)
[2021-07-09 14:49] LABS: ANION GAP 15 (6-14); BLOOD UREA NITROGEN 33 mg/dL (7-20); BUN/CREATININE RATIO 7 (6-20); CARBON DIOXIDE 26 mmol/L (21-32); CHLORIDE 99 mmol/L (98-107); CREATININE 4.7 mg/dL (0.6-1.0); GFR 8.9; GLUCOSE 220 mg/dL (70-99); POTASSIUM 3.9 mmol/L (3.5-5.1); SODIUM 140 mmol/L (136-145)
[2021-07-09 14:55] LABS: ALBUMIN 2.2 g/dL (3.4-5.0); ALBUMIN/GLOBULIN RATIO 0.4 (1.0-1.7); ALK PHOS 119 U/L (46-116); AST (SGOT) 19 U/L (15-37); MAGNESIUM 1.7 mg/dL (1.8-2.4); TOTAL BILIRUBIN 0.7 mg/dL (0.2-1.0); TOTAL PROTEIN 7.3 g/dL (6.4-8.2)
--- NOTE | 2021-07-09 15:05 | RAD ---
AP chest. HISTORY: Weakness AP view was taken of the chest. There is a right dialysis catheter extending to the right atrium with out change. Lungs are free of infiltrates. Heart is normal in size. There is no effusion. IMPRESSION: 1. No acute infiltrates. Electronically signed by: Noah Rowley MD (07/09/2021 3:03 PM) [facility]
[2021-07-09 15:06] LABS: ALT (SGPT) < 6 U/L (14-59)
--- NOTE | 2021-07-09 15:18 | RAD ---
Examination: CT HEAD INDICATION: Weakness COMPARISON: 10/08/2020 Exposure: One or more of the following individualized dose reduction techniques were utilized for thi s examination: 1. Automated exposure control 2. Adjustment of the mA and/or kV according to patient size 3. Use of iterative reconstruction technique TECHNIQUE: 5 mm contiguous axial images were obtained from the skull base to the vertex in both bone and soft tissue algorithm. FINDINGS: Mild bilateral periventricular white matter hypodensities likely chronic small vessel ischemic diseas e. No evidence of acute intracranial hemorrhage. No extra-axial fluid collections. No mass effect or midline shift. Ventricular size is appropriate. Basal cisterns are patent. No fractures identified.Dumont-white differentiation is preserved.Globes and orbits are within normal l imits. Paranasal sinuses and mastoid air cells are clear. IMPRESSION: No acute intracranial findings. Electronically signed by: Wei Tobin MD (07/09/2021 3:16 PM) [id number]
--- NOTE | 2021-07-09 17:32 | PHYS DOC ---
Past Medical History Past Medical History: A-Fib, Anemia, CHF, Diabetes-Type II, DVT, High Cholesterol, Hypertension, Pneumonia, Renal Failure, UTI, Other Additional Past Medical Histor: PE,lymphedema,RENAL FAILURE,ACUTE RESP FAILURE, dialysis Past Surgical History: Other Additional Past Surgical Histo: chest while /TUBES IN LUNGS, DIALYSIS SHUNT Smoking Status: Never Smoker Alcohol Use: None Drug Use: None General Adult EDM: Chief Complaint: WEAKNESS/GENERALIZED HPI: HPI: Patient is a 81 year old female with a history of A. fib, hypertension, high cholesterol, end-stage kidney disease on dialysis Friday last dialyzed on Friday presenting to the ED today complaining of general weakness that began this morning when she woke up. She states she was unable to get out of bed. Patient denies any chest pain, shortness of breath. Denies any fever, coughing or congestion. States she lives with her sister who is not in good health and not able to care for her either. She states she has home health they are not able to care for her. Review of Systems: Review of Systems: Constitutional: Denies fever or chills. [] Eyes: Denies change in visual acuity. [] HENT: Denies nasal congestion or sore throat. [] Respiratory: Denies cough or shortness of breath. [] Cardiovascular: Denies chest pain or edema. [] GI: Denies abdominal pain, nausea, vomiting, bloody stools or diarrhea. [] : Denies dysuria. [] Musculoskeletal: Denies back pain or joint pain. [] Integument: Denies rash. [] Neurologic: Reports generalized weakness. Denies headache, focal weakness or sensory changes. [] Psychiatric: Denies depression or anxiety. [] Heart Score: C/O Chest Pain: N/A Risk Factors: Risk Factors: DM, Current or recent (<one month) smoker, HTN, HLP, family history of CAD, obesity. Risk Scores: Score 0 - 3: 2.5% MACE over next 6 weeks - Discharge Home Score 4 - 6: 20.3% MACE over next 6 weeks - Admit for Clinical Observation Score 7 - 10: 72.7% MACE over next 6 weeks - Early Invasive Strategies Current Medications: Current Medications Medications (Trade) Dose Ordered Sig/Angy Start Time Stop Time Status Last Admin Dose Admin Sodium Chloride 250 ml @ 250 mls/hr 1X ONCE 07/09/21 14:30 07/09/21 15:29 DC 07/09/21 15:33 250 MLS/HR Allergies: Allergies: Allergies Coded Allergies Type Severity Reaction Last Updated Verified I S O L A T I O N *CONTACT* Allergy Unknown 06/06/21 Yes No Known Medication Allergies Allergy Unknown 06/26/21 Yes Physical Exam: PE: Constitutional: Well developed, well nourished, no acute distress, non-toxic appearance. [] HENT: Normocephalic, atraumatic, bilateral external ears normal, oropharynx moist, no oral exudates, nose normal. [] Eyes: PERRLA, EOMI, conjunctiva normal, no discharge. [] Neck: Normal range of motion, no tenderness, supple, no stridor. [] Cardiovascular:Heart rate regular rhythm, no murmur dialysis catheter noted on the right upper chest Lungs & Thorax: Bilateral breath sounds clear to auscultation [] Abdomen: Bowel sounds normal, soft, no tenderness, no masses, no pulsatile masses. [] Skin: Warm, dry, no erythema, no rash. [] Back: No tenderness, no CVA tenderness. [] Extremities: No tenderness, no cyanosis, no clubbing, ROM intact, +2 bilateral pedal edema Neurologic: Alert and oriented X 3, normal motor function, normal sensory function, no focal deficits noted. Cranial nerves II through XII intact Psychologic: Affect normal, judgement normal, mood normal. [] Current Patient Data: Labs: Laboratory Tests Test 07/09/21 14:15 White Blood Count 8.4 x10^3/uL (4.0-11.0) Red Blood Count 3.28 x10^6/uL (3.50-5.40) L Hemoglobin 10.1 g/dL (12.0-15.5) L Hematocrit 31.3 % (36.0-47.0) L Mean Corpuscular Volume 95 fL (79-100) Mean Corpuscular Hemoglobin 31 pg (25-35) Mean Corpuscular Hemoglobin Concent 32 g/dL (31-37) Red Cell Distribution Width 16.9 % (11.5-14.5) H Platelet Count 316 x10^3/uL (140-400) Neutrophils (%) (Auto) 77 % (31-73) H Lymphocytes (%) (Auto) 14 % (24-48) L Monocytes (%) (Auto) 8 % (0-9) Eosinophils (%) (Auto) 1 % (0-3) Basophils (%) (Auto) 1 % (0-3) Neutrophils # (Auto) 6.4 x10^3/uL (1.8-7.7) Lymphocytes # (Auto) 1.2 x10^3/uL (1.0-4.8) Monocytes # (Auto) 0.7 x10^3/uL (0.0-1.1) Eosinophils # (Auto) 0.1 x10^3/uL (0.0-0.7) Basophils # (Auto) 0.1 x10^3/uL (0.0-0.2) Sodium Level 140 mmol/L (136-145) Potassium Level 3.9 mmol/L (3.5-5.1) Chloride Level 99 mmol/L (98-107) Carbon Dioxide Level 26 mmol/L (21-32) Anion Gap 15 (6-14) H Blood Urea Nitrogen 33 mg/dL (7-20) H Creatinine 4.7 mg/dL (0.6-1.0) H Estimated GFR (Cockcroft-Gault) 8.9 BUN/Creatinine Ratio 7 (6-20) Glucose Level 220 mg/dL (70-99) H Calcium Level 9.0 mg/dL (8.5-10.1) Magnesium Level 1.7 mg/dL (1.8-2.4) L Total Bilirubin 0.7 mg/dL (0.2-1.0) Aspartate Amino Transferase (AST) 19 U/L (15-37) Alanine Aminotransferase (ALT) < 6 U/L (14-59) L Alkaline Phosphatase 119 U/L (46-116) H Troponin I High Sensitivity 21 ng/L (4-50) CY-Qek-E-Type Natriuretic Peptide 5017 pg/mL (0-449) H Total Protein 7.3 g/dL (6.4-8.2) Albumin 2.2 g/dL (3.4-5.0) L Albumin/Globulin Ratio 0.4 (1.0-1.7) L Thyroid Stimulating Hormone (TSH) 1.555 uIU/mL (0.358-3.74) Laboratory Tests 07/09/21 14:15 Laboratory Tests 07/09/21 14:15 Vital Signs: Vital Signs Date Time Temp Pulse Resp B/P (MAP) Pulse Ox O2 Delivery O2 Flow Rate FiO2 07/09/21 14:23 98.2 103 22 111/71 (84) 100 Room Air 98.2 EKG: EK interpreted by Dr. Finch sinus tachycardia heart rate 106 no STEMI Radiology/Procedures: Radiology/Procedures: []PROCEDURE: CT HEAD WO CONTRAST Examination: CT HEAD INDICATION: Weakness COMPARISON: 10/08/2020 Exposure: One or more of the following individualized dose reduction techniques were utilized for this examination: 1. Automated exposure control 2. Adjustment of the mA and/or kV according to patient size 3. Use of iterative reconstruction technique TECHNIQUE: 5 mm contiguous axial images were obtained from the skull base to the vertex in both bone and soft tissue algorithm. FINDINGS: Mild bilateral periventricular white matter hypodensities likely chronic small vessel ischemic disease. No evidence of acute intracranial hemorrhage. No extra-axial fluid collections. No mass effect or midline shift. Ventricular size is appropriate. Basal cisterns are patent. No fractures identified.Dumont-white differentiation is preserved.Globes and orbits are within normal limits. Paranasal sinuses and mastoid air cells are clear. IMPRESSION: No acute intracranial findings. Electronically signed by: Wei Tobin MD (07/09/2021 3:16 PM) [id number] DICTATED and SIGNED BY: WEI TOBIN MD DATE: 07/09/21 1512 PROCEDURE: PORTABLE CHEST 1V AP chest. HISTORY: Weakness AP view was taken of the chest. There is a right dialysis catheter extending to the right atrium without change. Lungs are free of infiltrates. Heart is normal in size. There is no effusion. IMPRESSION: 1. No acute infiltrates. Electronically signed by: Noah Rowley MD (07/09/2021 3:03 PM) [facility] DICTATED and SIGNED BY: NOAH ROWLEY MD DATE: 07/09/21 1502 Course & Med Decision Making: Course & Med Decision Making Pertinent Labs and Imaging studies reviewed. (See chart for details) This 81-year-old female patient on dialysis presented today to be evaluated for generalized weakness, symptoms of been going on since this morning. Patient was unable to get out of bed. Chest x-ray is negative for any acute findings, CT of the head is negative. CBC with a normal WBC, hemoglobin 10.1 with hematocrit of 31.3. Glucose 220, creatinine 4.7 with BUN of 33. Potassium is normal, BNP 5017. Spoke with Dr. Cruz who accepted patient for admission Routine consult placed for nephrology Sam Disclaimer: Sam Disclaimer: This electronic medical record was generated, in whole or in part, using a voice recognition dictation system. Departure Departure Impression: Primary Impression: Generalized weakness Additional Impression: ESRD (end stage renal disease) Disposition: ADMITTED INPATIENT Condition: STABLE Referrals: HARPREET ZAMORA MD (PCP) DESHAWN OWUSU APRN Jul 09, 2021 17:32
[2021-07-09] MEDS ORDERED: ACETAMINOPHEN 325 MG TABLET. PO PRN ×2 (18:15→18:30)
[2021-07-09] MEDS ORDERED: ONDANSETRON PF 4 MG/2 ML VIAL. IVP PRN ×2 (18:15→18:30)
[2021-07-09] MEDS ORDERED: IV DEXTROSE 5% 250 ML BAG. IV PRN (18:30)
[2021-07-09] MEDS ORDERED: MAGNESIUM HYDROXIDE 2,400 MG/30 ML ORAL.SUSP. PO PRN (18:30)
[2021-07-09] MEDS ORDERED: POLYETHYLENE GLYCOL 3350 17 GM PACKET. PO PRN (18:30)
[2021-07-09] MEDS ORDERED: HYDROcodone/APAP 5/325MG 1 TAB TABLET PO PRN (18:30)
[2021-07-09] MEDS ORDERED: DEXTROSE 50% 25 GM / 50ML DISP.SYRIN. IV PRN (18:30)
[2021-07-09] MEDS ORDERED: ZOLPIDEM 5 MG TABLET. PO PRN (18:30)
--- NOTE | 2021-07-09 18:31 | PDOC1 ---
History and Physical Date of Admission Date of Admission DATE: 07/09/21 TIME: 18:27 Identification/Chief Complaint Chief Complaint Weakness Source Source: Caregiver, Chart review, Patient History of Present Illness History of Present Illness Patient is a 81-year-old female with past medical history ESRD on HD Friday/Friday/Friday, who presents to the ED with complaints of generalized weakness. Apparently she was unable to get out of bed this morning, so she called EMS. Patient was at home with her sister who is also in poor health. Labs on admission showed hemoglobin 10.1, hematocrit 31.3, BUN 33, creatinine 4.7, CBG 220, albumin 2.2. Patient will be admitted for further medical management. Past Medical History Cardiovascular: AFIB, HTN, Hyperlipidemia, Other Pulmonary: Pulmonary embolus, Other CENTRAL NERVOUS SYSTEM: Periperal neuropathy, Other GI: GERD Heme/Onc: Anemia NOS Hepatobiliary: No pertinent hx Psych: No pertinent hx Rheumatologic: Gout Infectious disease: No pertinent hx Renal/: Chronic renal insuff, Acute renal failure Endocrine: Diabetes Past Surgical History Past Surgical History: Tonsillectomy Family History Family History: Hypertension Social History Smoke: No ALCOHOL: none Drugs: None Current Medications Current Medications Current Medications Sodium Chloride 250 ml @ 250 mls/hr 1X ONCE IV Last administered on 07/09/21at 15:33; Start 07/09/21 at 14:30; Stop 07/09/21 at 15:29; Status DC Ondansetron HCl (Zofran) 4 mg PRN Q8HRS PRN IVP NAUSEA/VOMITING; Start 07/09/21 at 18:15; Stop 07/10/21 at 18:14 Acetaminophen (Tylenol) 650 mg PRN Q4HRS PRN PO FEVER > 100.3'F; Start 07/09/21 at 18:15; Stop 07/10/21 at 18:14 Ondansetron HCl (Zofran) 4 mg PRN Q6HRS PRN IVP NAUSEA/VOMITING; Start 07/09/21 at 18:30 Zolpidem Tartrate (Ambien) 5 mg PRN QHS PRN PO INSOMNIA, MAY REPEAT IN 1HR; Start 07/09/21 at 18:30 Acetaminophen/ Hydrocodone Bitart (Lortab 5/325) 1 tab PRN Q4HRS PRN PO MILD PAIN 1-3; Start 07/09/21 at 18:30; Status UNV Acetaminophen (Tylenol) 650 mg PRN Q6HRS PRN PO Headaches, Temp > 101.5F; Start 07/09/21 at 18:30; Status UNV Magnesium Hydroxide (Milk Of Magnesia) 2,400 mg PRN Q12HR PRN PO CONSTIPATION; Start 07/09/21 at 18:30; Status UNV Heparin Sodium (Porcine) (Heparin Sodium) 5,000 unit Q12HR SQ ; Start 07/09/21 at 21:00; Status UNV Active Scripts Active Novolog (Insulin Aspart) 100 Unit/1 Ml Cartridge 5 Unit SQ TIDAC 30 Days Polyethylene Glycol 3350 17 Gm Powd.pack 17 Gm PO DAILY PRN 30 Days Aspirin 81 Mg Tab.chew 1 Tab PO DAILY Nystop (Nystatin) 60 Gm Powder 1 [place] TP QID 15 Days Culturelle (Lactobacillus Rhamnosus Gg) 1 Each Cap.sprink 1 Cap PO BID 30 Days Feosol (Ferrous Sulfate) 325 Mg Tablet 325 Mg PO BIDWMEALS 30 Days Tylenol (Acetaminophen) 325 Mg Tablet 1-2 Tab PO QID PRN Reported Vitamin D2 (Ergocalciferol (Vitamin D2)) 50,000 Unit Capsule 1 Cap PO WEEKLY Pantoprazole Sodium (Pantoprazole Sodium) 40 Mg Tablet.dr 1 Tab PO DAILY Atorvastatin Calcium 40 Mg Tablet 1 Tab PO QHS Allergies Allergies: Coded Allergies: I S O L A T I O N *CONTACT* (Verified Allergy, Unknown, 06/06/21) ESBL No Known Medication Allergies (Verified Allergy, Unknown, 06/26/21) ROS Review of System GENERAL: Generalized weakness. No history of weight change or fevers. SKIN: No bruising, hair changes or rashes. EYES: No blurred, double or loss of vision. NOSE AND THROAT: No history of nosebleeds, hoarseness or sore throat. HEART: Denies chest pain, denies palpitations. LUNGS: Denies cough, hemoptysis, wheezing or shortness of breath. GASTROINTESTINAL: Denies nausea, vomiting, abdominal pain. GENITOURINARY: Denies dysuria, frequency, urgency, hematuria. NEUROLOGIC: Denies history of numbness, tingling, or tremor. PSYCHIATRIC: Denies anxiety, denies depression. ENDOCRINE: No history of heat or cold intolerance, polyuria or polydipsia. EXTREMITIES: Denies joint pain, pain on walking or stiffness. Physical Exam Physical Exam General: Alert, Oriented X3, Cooperative, No acute distress HEENT: PERRLA, EOMI Lungs: Clear to auscultation, Normal air movement Heart: RRR, no murmurs Cardiovascular: S1, S2 Abdomen: Normal bowel sounds, Soft, No tenderness Extremities: No clubbing, No cyanosis Skin: No rashes, No significant lesion Neuro: Normal speech, Normal tone, Sensation intact Psych/Mental Status: Mental status NL, Mood NL Vitals Vitals Vital Signs Date Time Temp Pulse Resp B/P (MAP) Pulse Ox O2 Delivery O2 Flow Rate FiO2 07/09/21 14:23 98.2 103 22 111/71 (84) 100 Room Air 98.2 Labs Labs Laboratory Tests Test 07/09/21 14:15 07/09/21 17:00 White Blood Count 8.4 x10^3/uL (4.0-11.0) Red Blood Count 3.28 x10^6/uL (3.50-5.40) Hemoglobin 10.1 g/dL (12.0-15.5) Hematocrit 31.3 % (36.0-47.0) Mean Corpuscular Volume 95 fL (79-100) Mean Corpuscular Hemoglobin 31 pg (25-35) Mean Corpuscular Hemoglobin Concent 32 g/dL (31-37) Red Cell Distribution Width 16.9 % (11.5-14.5) Platelet Count 316 x10^3/uL (140-400) Neutrophils (%) (Auto) 77 % (31-73) Lymphocytes (%) (Auto) 14 % (24-48) Monocytes (%) (Auto) 8 % (0-9) Eosinophils (%) (Auto) 1 % (0-3) Basophils (%) (Auto) 1 % (0-3) Neutrophils # (Auto) 6.4 x10^3/uL (1.8-7.7) Lymphocytes # (Auto) 1.2 x10^3/uL (1.0-4.8) Monocytes # (Auto) 0.7 x10^3/uL (0.0-1.1) Eosinophils # (Auto) 0.1 x10^3/uL (0.0-0.7) Basophils # (Auto) 0.1 x10^3/uL (0.0-0.2) Sodium Level 140 mmol/L (136-145) Potassium Level 3.9 mmol/L (3.5-5.1) Chloride Level 99 mmol/L (98-107) Carbon Dioxide Level 26 mmol/L (21-32) Anion Gap 15 (6-14) Blood Urea Nitrogen 33 mg/dL (7-20) Creatinine 4.7 mg/dL (0.6-1.0) Estimated GFR (Cockcroft-Gault) 8.9 BUN/Creatinine Ratio 7 (6-20) Glucose Level 220 mg/dL (70-99) Calcium Level 9.0 mg/dL (8.5-10.1) Magnesium Level 1.7 mg/dL (1.8-2.4) Total Bilirubin 0.7 mg/dL (0.2-1.0) Aspartate Amino Transf (AST/SGOT) 19 U/L (15-37) Alanine Aminotransferase (ALT/SGPT) < 6 U/L (14-59) Alkaline Phosphatase 119 U/L (46-116) Troponin I High Sensitivity 21 ng/L (4-50) 17 ng/L (4-50) LF-Nar-M-Type Natriuretic Peptide 5017 pg/mL (0-449) Total Protein 7.3 g/dL (6.4-8.2) Albumin 2.2 g/dL (3.4-5.0) Albumin/Globulin Ratio 0.4 (1.0-1.7) Thyroid Stimulating Hormone (TSH) 1.555 uIU/mL (0.358-3.74) Laboratory Tests Test 07/09/21 14:15 07/09/21 17:00 White Blood Count 8.4 x10^3/uL (4.0-11.0) Red Blood Count 3.28 x10^6/uL (3.50-5.40) Hemoglobin 10.1 g/dL (12.0-15.5) Hematocrit 31.3 % (36.0-47.0) Mean Corpuscular Volume 95 fL (79-100) Mean Corpuscular Hemoglobin 31 pg (25-35) Mean Corpuscular Hemoglobin Concent 32 g/dL (31-37) Red Cell Distribution Width 16.9 % (11.5-14.5) Platelet Count 316 x10^3/uL (140-400) Neutrophils (%) (Auto) 77 % (31-73) Lymphocytes (%) (Auto) 14 % (24-48) Monocytes (%) (Auto) 8 % (0-9) Eosinophils (%) (Auto) 1 % (0-3) Basophils (%) (Auto) 1 % (0-3) Neutrophils # (Auto) 6.4 x10^3/uL (1.8-7.7) Lymphocytes # (Auto) 1.2 x10^3/uL (1.0-4.8) Monocytes # (Auto) 0.7 x10^3/uL (0.0-1.1) Eosinophils # (Auto) 0.1 x10^3/uL (0.0-0.7) Basophils # (Auto) 0.1 x10^3/uL (0.0-0.2) Sodium Level 140 mmol/L (136-145) Potassium Level 3.9 mmol/L (3.5-5.1) Chloride Level 99 mmol/L (98-107) Carbon Dioxide Level 26 mmol/L (21-32) Anion Gap 15 (6-14) Blood Urea Nitrogen 33 mg/dL (7-20) Creatinine 4.7 mg/dL (0.6-1.0) Estimated GFR (Cockcroft-Gault) 8.9 BUN/Creatinine Ratio 7 (6-20) Glucose Level 220 mg/dL (70-99) Calcium Level 9.0 mg/dL (8.5-10.1) Magnesium Level 1.7 mg/dL (1.8-2.4) Total Bilirubin 0.7 mg/dL (0.2-1.0) Aspartate Amino Transf (AST/SGOT) 19 U/L (15-37) Alanine Aminotransferase (ALT/SGPT) < 6 U/L (14-59) Alkaline Phosphatase 119 U/L (46-116) Troponin I High Sensitivity 21 ng/L (4-50) 17 ng/L (4-50) RJ-Crv-T-Type Natriuretic Peptide 5017 pg/mL (0-449) Total Protein 7.3 g/dL (6.4-8.2) Albumin 2.2 g/dL (3.4-5.0) Albumin/Globulin Ratio 0.4 (1.0-1.7) Thyroid Stimulating Hormone (TSH) 1.555 uIU/mL (0.358-3.74) VTE Prophylaxis Ordered VTE Prophylaxis Devices: No VTE Pharmacological Prophylaxi: Yes Assessment/Plan Assessment/Plan Physical debility ESRD on HD DM2 Normocytic anemia Severe malnutrition Plan: Will place consult to nephrology to continue regular dialysis schedule PT/OT We will need to work out better discharge planning for patient given her poor living condition FEN - Cardiac/diabetic/renal diet PPX - Heparin FULL CODE/surrogate decision-maker is her sister (Reina Martin) Dispo - inpatient for above Justifications for Admission Other Justification TIAN NYE MD Jul 09, 2021 18:31
--- NOTE | 2021-07-09 18:56 | EKG ---
[facility] [address] [place] [address] Test Date: 2021-07-09 Test Time: 14:37:01 Pat Name: MERRICK ARRIAGA Department: Room: [facility] Gender: F Certified Nursing Assistant: : 1940 Requested By: DESHAWN OWUSU Order Number: [id number] Reading MD: Basil Caldwell Measurements Intervals [place] Rate: 106 P: -52 MT: 148 QRS: 38 QRSD: 84 T: 51 QT: 342 QTc: 456 Interpretive Statements SINUS TACHYCARDIA Electronically Signed On 07-13-2021 13:49:42 CDT by Basil Caldwell
[2021-07-09 19:00] VITALS: BP 127/56
[2021-07-09] MEDS: LACTOBACILLUS RHAMNOSUS GG 1 CAPSULE. PO SCH (20:58)
[2021-07-09] MEDS: ATORVASTATIN CALCIUM 40 MG TABLET. PO SCH (20:58)
[2021-07-09] MEDS: HEPARIN for SUB-Q USE 5,000 UNIT/ML VIAL. SQ SCH (21:03)
[2021-07-09] MEDS: NYSTATIN TOPICAL POWDER 15GM BOTTLE. TP SCH (21:05)
[2021-07-09 23:03] VITALS: BP 106/53
[2021-07-10 02:32] VITALS: BP 96/58
[2021-07-10] MEDS ORDERED: C.DIFF MED SCREEN BY RX. MC ONE (04:00)
[2021-07-10] MEDS ORDERED: FURO40TA4 PO (05:09)
[2021-07-10] MEDS ORDERED: MIDO5TAB4 PO (05:09)
[2021-07-10] MEDS ORDERED: INSU100I13 SQ (05:09)
--- NOTE | 2021-07-10 06:17 | NUR ---
Pt goes to [facility] Dialysis Eliazar W, F. Bariatric Program Coordinator Kiley at [facility] called to check on patient. Patient stated that Kiley could have any information that she needed. Yolis stated that last Dialysis date was July 06 and that her target weight is 88.5 KG. Per Kiley she has been working with the patient and her sister Reina to get Patient, Miranda, into a [facility] operator care facility called [facility], in [place], [place]. This facility has a Dialysis center within it. Pt is agreeable that she does need some extra help and at time of admission stated that she would be willing to go to a facility after discharge. Pt has had some recent Bowel and Bladder incontinence and per patient her memory hasn't been the greatest, along with some generalized weakness. Addendum: 07/10/21 at 0633 by REYNALDO BAR RN RN Yolis stated that she would be able to give any information needed to help with D/C planning and can be reached at [phone], if not available stated that nurse Gatica or any floor nurse could be of assistance to our SW.
[2021-07-10 07:00] VITALS: BP 89/42
[2021-07-10] MEDS ORDERED: PANTOPRAZOLE 40 MG TABLET.DR. PO SCH (07:30)
[2021-07-10] MEDS: INSULIN LISPRO 300 UNITS/3 ML VIAL. SQ SCH ×6 (08:00→17:00)
[2021-07-10 08:42] LABS: BASO # 0.1 x10^3/uL (0.0-0.2); BASO % 1 % (0-3); EOS # 0.2 x10^3/uL (0.0-0.7); EOS % 3 % (0-3); HEMATOCRIT 29.5 % (36.0-47.0); HEMOGLOBIN 9.2 g/dL (12.0-15.5); LYMPH # 1.4 x10^3/uL (1.0-4.8); LYMPH % 23 % (24-48); MEAN CORPUSCULAR HEMOGLOBIN 30 pg (25-35); MEAN CORPUSCULAR HGB CONC 31 g/dL (31-37); MEAN CORPUSCULAR VOLUME 97 fL (79-100); MONO # 0.7 x10^3/uL (0.0-1.1); MONO % 11 % (0-9); NEUT # 3.8 x10^3/uL (1.8-7.7); NEUT % 62 % (31-73); PLATELET COUNT 364 x10^3/uL (140-400); RED BLOOD COUNT 3.04 x10^6/uL (3.50-5.40); WHITE BLOOD COUNT 6.2 x10^3/uL (4.0-11.0)
[2021-07-10] MEDS: FERROUS SULFATE 325 MG TABLET. PO SCH ×2 (08:57→17:25)
[2021-07-10] MEDS: ASPIRIN CHEWABLE 81 MG TABLET. PO SCH (08:57)
[2021-07-10] MEDS: LACTOBACILLUS RHAMNOSUS GG 1 CAPSULE. PO SCH ×2 (08:58→20:25)
[2021-07-10] MEDS: NYSTATIN TOPICAL POWDER 15GM BOTTLE. TP SCH ×4 (09:00→20:29)
[2021-07-10 09:03] LABS: ALBUMIN/GLOBULIN RATIO 0.5 (1.0-1.7); ALK PHOS 103 U/L (46-116); ALT (SGPT) < 6 U/L (14-59); ANION GAP 13 (6-14); AST (SGOT) 15 U/L (15-37); BLOOD UREA NITROGEN 37 mg/dL (7-20); BUN/CREATININE RATIO 8 (6-20); CALCIUM 8.4 mg/dL (8.5-10.1); CARBON DIOXIDE 25 mmol/L (21-32); CHLORIDE 101 mmol/L (98-107); CREATININE 4.5 mg/dL (0.6-1.0); GFR 9.4; GLUCOSE 110 mg/dL (70-99); POTASSIUM 3.8 mmol/L (3.5-5.1); SODIUM 139 mmol/L (136-145); TOTAL BILIRUBIN 0.5 mg/dL (0.2-1.0)
[2021-07-10] MEDS: HEPARIN for SUB-Q USE 5,000 UNIT/ML VIAL. SQ SCH ×2 (09:05→20:25)
[2021-07-10] MEDS ORDERED: DIALYSIS PATIENT. MC PRN ×2 (10:30)
--- NOTE | 2021-07-10 10:42 | PDOC2 ---
CONSULT Date of Consult Date of Consult DATE: 07/10/21 TIME: 10:37 Reason for Consult Reason for Consult: ESRD Referring Physician Referring Physician: PARRIS Identification/Chief Complaint Chief Complaint WEAKNESS Source Source: Chart review, Patient History of Present Illness Reason for Visit: THIS IS AN 81 YR OLD PT WITH ESRD. ON OP HD ON MWF. UNABLE TO GO TO HER TX YESTERDAY DUE TO WEAKNESS. SHE WAS UNABLE TO GET OUT OF BED AND CALLED EMS. LABS ARE C/W ESRD. SHE HAS RIGHT IJ TDC FOR ACCESS AND NEWLY PLACED LEFT ARM AV ACCESS THAT IS NOT READY FOR ACCESS JUST YET. Past Medical History Cardiovascular: AFIB, HTN, Hyperlipidemia, Other Pulmonary: Pulmonary embolus, Other CENTRAL NERVOUS SYSTEM: Periperal neuropathy, Other GI: GERD Heme/Onc: Anemia NOS Hepatobiliary: No pertinent hx Psych: No pertinent hx Rheumatologic: Gout Infectious disease: No pertinent hx Renal/: Chronic renal insuff, Acute renal failure Endocrine: Diabetes, Hyperparathyroidism Past Surgical History Past Surgical History: Tonsillectomy Family History Family History: Hypertension Social History No ALCOHOL: none Drugs: None Lives: with Family Current Medications Current Medications Current Medications Sodium Chloride 250 ml @ 250 mls/hr 1X ONCE IV Last administered on 07/09/21at 15:33; Start 07/09/21 at 14:30; Stop 07/09/21 at 15:29; Status DC Ondansetron HCl (Zofran) 4 mg PRN Q8HRS PRN IVP NAUSEA/VOMITING; Start 07/09/21 at 18:15; Stop 07/10/21 at 18:14 Acetaminophen (Tylenol) 650 mg PRN Q4HRS PRN PO FEVER > 100.3'F; Start 07/09/21 at 18:15; Stop 07/10/21 at 18:14 Ondansetron HCl (Zofran) 4 mg PRN Q6HRS PRN IVP NAUSEA/VOMITING; Start 07/09/21 at 18:30 Zolpidem Tartrate (Ambien) 5 mg PRN QHS PRN PO INSOMNIA, MAY REPEAT IN 1HR; Start 07/09/21 at 18:30 Acetaminophen/ Hydrocodone Bitart (Lortab 5/325) 1 tab PRN Q4HRS PRN PO MILD PAIN 1-3; Start 07/09/21 at 18:30 Acetaminophen (Tylenol) 650 mg PRN Q6HRS PRN PO Headaches, Temp > 101.5F; Start 07/09/21 at 18:30 Magnesium Hydroxide (Milk Of Magnesia) 2,400 mg PRN Q12HR PRN PO CONSTIPATION, 2ND CHOICE; Start 07/09/21 at 18:30 Heparin Sodium (Porcine) (Heparin Sodium) 5,000 unit Q12HR SQ Last administered on 07/10/21at 09:05; Start 07/09/21 at 21:00 Aspirin (Aspirin Chewable) 81 mg DAILY PO Last administered on 07/10/21at 08:57; Start 07/10/21 at 09:00 Atorvastatin Calcium (Lipitor) 40 mg QHS PO Last administered on 07/09/21at 2 0:58; Start 07/09/21 at 21:00 Ergocalciferol (Vitamin D2) 50,000 unit WEEKLY PO ; Start 07/16/21 at 09:00 Ferrous Sulfate (Feosol) 325 mg BIDWMEALS PO Last administered on 07/10/21at 08:57; Start 07/10/21 at 08:00 Lactobacillus Rhamnosus (Culturelle) 1 cap BID PO Last administered on 07/10/21at 08:58; Start 07/09/21 at 21:00 Nystatin (Nystop) 1 laurel QID TP Last administered on 07/09/21at 21:05; Start 07/09/21 at 21:00 Pantoprazole Sodium (Protonix) 40 mg DAILYAC PO Last administered on 07/10/21at 06:20; Start 07/10/21 at 07:30 Polyethylene Glycol (miraLAX PACKET) 17 gm DAILY PRN PO CONSTIPATION, 1ST CHOICE; Start 07/09/21 at 18:30 Insulin Human Lispro (HumaLOG) 5 units TIDWMEALS SQ ; Start 07/10/21 at 08:00 Insulin Human Lispro (HumaLOG) 0-9 UNITS TIDWMEALS SQ ; Start 07/10/21 at 08:00 Dextrose (Dextrose 50%-Water Syringe) 12.5 gm PRN Q15MIN PRN IV SEE COMMENTS; Start 07/09/21 at 18:30 Dextrose (Iv Dextrose 5%) 250 ml PRN Q15MIN PRN IV SEE COMMENTS; Start 07/09/21 at 18:30 Pharmacy Consult (C.diff Med Screen By Rx) 1 each 1X ONCE MC ; Start 07/10/21 at 04:00; Stop 07/10/21 at 04:01; Status DC Info (PHARMACY MONITORING -- do not chart) 1 each PRN DAILY PRN MC SEE COMMENTS; Start 07/10/21 at 10:30 Info (PHARMACY MONITORING -- do not chart) 1 each PRN DAILY PRN MC SEE COMMENTS; Start 07/10/21 at 10:30; Stop 07/10/21 at 10:35; Status DC Active Scripts Active Novolog (Insulin Aspart) 100 Unit/1 Ml Cartridge 5 Unit SQ TIDAC 30 Days Polyethylene Glycol 3350 17 Gm Powd.pack 17 Gm PO DAILY PRN 30 Days Aspirin 81 Mg Tab.chew 1 Tab PO DAILY Nystop (Nystatin) 60 Gm Powder 1 Laurel TP QID 15 Days Tylenol (Acetaminophen) 325 Mg Tablet 1-2 Tab PO QID PRN Reported Furosemide 40 Mg Tablet 40 Mg PO DAILY Midodrine Hcl 5 Mg Tablet 5 Mg PO TID Lantus Solostar (Insulin Glargine,Hum.rec.anlog) 100 Unit/1 Ml Insuln.pen 8 Unit SQ QHS Vitamin D2 (Ergocalciferol (Vitamin D2)) 50,000 Unit Capsule 1 Cap PO WEEKLY Pantoprazole Sodium (Pantoprazole Sodium) 40 Mg Tablet.dr 1 Tab PO DAILY Atorvastatin Calcium 40 Mg Tablet 1 Tab PO QHS Allergies Allergies: Coded Allergies: I S O L A T I O N *CONTACT* (Verified Allergy, Unknown, 06/06/21) ESBL No Known Medication Allergies (Verified Allergy, Unknown, 06/26/21) ROS General: YES: Fatigue PSYCHOLOGICAL ROS: YES: Anxiety Eyes: Yes Decreased vision HEENT: YES: Heacaches Respiratory: YES: Cough Gastrointestinal: Yes Constipation Genitourinary: YES Incontinence Musculoskeletal: Yes Muscular Weakness Neurological: Yes Weakness Skin: Yes Dry Skin Physical Exam Physical Exam RIGHT IJ TDC, LEFT ARM AV ACCESS HAS A THRILL AND BRUIT. General: Alert, Cooperative, No acute distress HEENT: Atraumatic Lungs: Clear to auscultation Heart: Regular rate Abdomen: Normal bowel sounds, No tenderness Extremities: No cyanosis Neuro: Normal speech Psych/Mental Status: Mental status NL, Mood NL MUSCULOSKELETAL: No joint tenderness, No deformity, No swelling Vitals VITALS Vital Signs Date Time Temp Pulse Resp B/P (MAP) Pulse Ox O2 Delivery O2 Flow Rate FiO2 07/10/21 07:00 98.2 80 19 89/42 (58) 100 Room Air 98.2 Labs Labs Laboratory Tests Test 07/09/21 14:15 07/09/21 17:00 07/09/21 20:20 07/09/21 20:52 White Blood Count 8.4 x10^3/uL (4.0-11.0) Red Blood Count 3.28 x10^6/uL (3.50-5.40) Hemoglobin 10.1 g/dL (12.0-15.5) Hematocrit 31.3 % (36.0-47.0) Mean Corpuscular Volume 95 fL (79-100) Mean Corpuscular Hemoglobin 31 pg (25-35) Mean Corpuscular Hemoglobin Concent 32 g/dL (31-37) Red Cell Distribution Width 16.9 % (11.5-14.5) Platelet Count 316 x10^3/uL (140-400) Neutrophils (%) (Auto) 77 % (31-73) Lymphocytes (%) (Auto) 14 % (24-48) Monocytes (%) (Auto) 8 % (0-9) Eosinophils (%) (Auto) 1 % (0-3) Basophils (%) (Auto) 1 % (0-3) Neutrophils # (Auto) 6.4 x10^3/uL (1.8-7.7) Lymphocytes # (Auto) 1.2 x10^3/uL (1.0-4.8) Monocytes # (Auto) 0.7 x10^3/uL (0.0-1.1) Eosinophils # (Auto) 0.1 x10^3/uL (0.0-0.7) Basophils # (Auto) 0.1 x10^3/uL (0.0-0.2) Sodium Level 140 mmol/L (136-145) Potassium Level 3.9 mmol/L (3.5-5.1) Chloride Level 99 mmol/L (98-107) Carbon Dioxide Level 26 mmol/L (21-32) Anion Gap 15 (6-14) Blood Urea Nitrogen 33 mg/dL (7-20) Creatinine 4.7 mg/dL (0.6-1.0) Estimated GFR (Cockcroft-Gault) 8.9 BUN/Creatinine Ratio 7 (6-20) Glucose Level 220 mg/dL (70-99) Calcium Level 9.0 mg/dL (8.5-10.1) Magnesium Level 1.7 mg/dL (1.8-2.4) Total Bilirubin 0.7 mg/dL (0.2-1.0) Aspartate Amino Transf (AST/SGOT) 19 U/L (15-37) Alanine Aminotransferase (ALT/SGPT) < 6 U/L (14-59) Alkaline Phosphatase 119 U/L (46-116) Troponin I High Sensitivity 21 ng/L (4-50) 17 ng/L (4-50) 16 ng/L (4-50) CW-Sam-I-Type Natriuretic Peptide 5017 pg/mL (0-449) Total Protein 7.3 g/dL (6.4-8.2) Albumin 2.2 g/dL (3.4-5.0) Albumin/Globulin Ratio 0.4 (1.0-1.7) Thyroid Stimulating Hormone (TSH) 1.555 uIU/mL (0.358-3.74) Glucose (Fingerstick) 100 mg/dL (70-99) Test 07/10/21 07:24 07/10/21 08:15 Glucose (Fingerstick) 82 mg/dL (70-99) White Blood Count 6.2 x10^3/uL (4.0-11.0) Red Blood Count 3.04 x10^6/uL (3.50-5.40) Hemoglobin 9.2 g/dL (12.0-15.5) Hematocrit 29.5 % (36.0-47.0) Mean Corpuscular Volume 97 fL (79-100) Mean Corpuscular Hemoglobin 30 pg (25-35) Mean Corpuscular Hemoglobin Concent 31 g/dL (31-37) Red Cell Distribution Width 17.0 % (11.5-14.5) Platelet Count 364 x10^3/uL (140-400) Neutrophils (%) (Auto) 62 % (31-73) Lymphocytes (%) (Auto) 23 % (24-48) Monocytes (%) (Auto) 11 % (0-9) Eosinophils (%) (Auto) 3 % (0-3) Basophils (%) (Auto) 1 % (0-3) Neutrophils # (Auto) 3.8 x10^3/uL (1.8-7.7) Lymphocytes # (Auto) 1.4 x10^3/uL (1.0-4.8) Monocytes # (Auto) 0.7 x10^3/uL (0.0-1.1) Eosinophils # (Auto) 0.2 x10^3/uL (0.0-0.7) Basophils # (Auto) 0.1 x10^3/uL (0.0-0.2) Sodium Level 139 mmol/L (136-145) Potassium Level 3.8 mmol/L (3.5-5.1) Chloride Level 101 mmol/L (98-107) Carbon Dioxide Level 25 mmol/L (21-32) Anion Gap 13 (6-14) Blood Urea Nitrogen 37 mg/dL (7-20) Creatinine 4.5 mg/dL (0.6-1.0) Estimated GFR (Cockcroft-Gault) 9.4 BUN/Creatinine Ratio 8 (6-20) Glucose Level 110 mg/dL (70-99) Calcium Level 8.4 mg/dL (8.5-10.1) Total Bilirubin 0.5 mg/dL (0.2-1.0) Aspartate Amino Transf (AST/SGOT) 15 U/L (15-37) Alanine Aminotransferase (ALT/SGPT) < 6 U/L (14-59) Alkaline Phosphatase 103 U/L (46-116) Total Protein 6.0 g/dL (6.4-8.2) Albumin 2.0 g/dL (3.4-5.0) Albumin/Globulin Ratio 0.5 (1.0-1.7) Laboratory Tests Test 07/09/21 14:15 07/09/21 17:00 07/09/21 20:20 07/09/21 20:52 White Blood Count 8.4 x10^3/uL (4.0-11.0) Red Blood Count 3.28 x10^6/uL (3.50-5.40) Hemoglobin 10.1 g/dL (12.0-15.5) Hematocrit 31.3 % (36.0-47.0) Mean Corpuscular Volume 95 fL (79-100) Mean Corpuscular Hemoglobin 31 pg (25-35) Mean Corpuscular Hemoglobin Concent 32 g/dL (31-37) Red Cell Distribution Width 16.9 % (11.5-14.5) Platelet Count 316 x10^3/uL (140-400) Neutrophils (%) (Auto) 77 % (31-73) Lymphocytes (%) (Auto) 14 % (24-48) Monocytes (%) (Auto) 8 % (0-9) Eosinophils (%) (Auto) 1 % (0-3) Basophils (%) (Auto) 1 % (0-3) Neutrophils # (Auto) 6.4 x10^3/uL (1.8-7.7) Lymphocytes # (Auto) 1.2 x10^3/uL (1.0-4.8) Monocytes # (Auto) 0.7 x10^3/uL (0.0-1.1) Eosinophils # (Auto) 0.1 x10^3/uL (0.0-0.7) Basophils # (Auto) 0.1 x10^3/uL (0.0-0.2) Sodium Level 140 mmol/L (136-145) Potassium Level 3.9 mmol/L (3.5-5.1) Chloride Level 99 mmol/L (98-107) Carbon Dioxide Level 26 mmol/L (21-32) Anion Gap 15 (6-14) Blood Urea Nitrogen 33 mg/dL (7-20) Creatinine 4.7 mg/dL (0.6-1.0) Estimated GFR (Cockcroft-Gault) 8.9 BUN/Creatinine Ratio 7 (6-20) Glucose Level 220 mg/dL (70-99) Calcium Level 9.0 mg/dL (8.5-10.1) Magnesium Level 1.7 mg/dL (1.8-2.4) Total Bilirubin 0.7 mg/dL (0.2-1.0) Aspartate Amino Transf (AST/SGOT) 19 U/L (15-37) Alanine Aminotransferase (ALT/SGPT) < 6 U/L (14-59) Alkaline Phosphatase 119 U/L (46-116) Troponin I High Sensitivity 21 ng/L (4-50) 17 ng/L (4-50) 16 ng/L (4-50) XT-Juo-Y-Type Natriuretic Peptide 5017 pg/mL (0-449) Total Protein 7.3 g/dL (6.4-8.2) Albumin 2.2 g/dL (3.4-5.0) Albumin/Globulin Ratio 0.4 (1.0-1.7) Thyroid Stimulating Hormone (TSH) 1.555 uIU/mL (0.358-3.74) Glucose (Fingerstick) 100 mg/dL (70-99) Test 07/10/21 07:24 07/10/21 08:15 Glucose (Fingerstick) 82 mg/dL (70-99) White Blood Count 6.2 x10^3/uL (4.0-11.0) Red Blood Count 3.04 x10^6/uL (3.50-5.40) Hemoglobin 9.2 g/dL (12.0-15.5) Hematocrit 29.5 % (36.0-47.0) Mean Corpuscular Volume 97 fL (79-100) Mean Corpuscular Hemoglobin 30 pg (25-35) Mean Corpuscular Hemoglobin Concent 31 g/dL (31-37) Red Cell Distribution Width 17.0 % (11.5-14.5) Platelet Count 364 x10^3/uL (140-400) Neutrophils (%) (Auto) 62 % (31-73) Lymphocytes (%) (Auto) 23 % (24-48) Monocytes (%) (Auto) 11 % (0-9) Eosinophils (%) (Auto) 3 % (0-3) Basophils (%) (Auto) 1 % (0-3) Neutrophils # (Auto) 3.8 x10^3/uL (1.8-7.7) Lymphocytes # (Auto) 1.4 x10^3/uL (1.0-4.8) Monocytes # (Auto) 0.7 x10^3/uL (0.0-1.1) Eosinophils # (Auto) 0.2 x10^3/uL (0.0-0.7) Basophils # (Auto) 0.1 x10^3/uL (0.0-0.2) Sodium Level 139 mmol/L (136-145) Potassium Level 3.8 mmol/L (3.5-5.1) Chloride Level 101 mmol/L (98-107) Carbon Dioxide Level 25 mmol/L (21-32) Anion Gap 13 (6-14) Blood Urea Nitrogen 37 mg/dL (7-20) Creatinine 4.5 mg/dL (0.6-1.0) Estimated GFR (Cockcroft-Gault) 9.4 BUN/Creatinine Ratio 8 (6-20) Glucose Level 110 mg/dL (70-99) Calcium Level 8.4 mg/dL (8.5-10.1) Total Bilirubin 0.5 mg/dL (0.2-1.0) Aspartate Amino Transf (AST/SGOT) 15 U/L (15-37) Alanine Aminotransferase (ALT/SGPT) < 6 U/L (14-59) Alkaline Phosphatase 103 U/L (46-116) Total Protein 6.0 g/dL (6.4-8.2) Albumin 2.0 g/dL (3.4-5.0) Albumin/Globulin Ratio 0.5 (1.0-1.7) Assessment/Plan Assessment/Plan IMP ESRD ANEMIA DM II HTN DECONDITIONING FAILURE TO THRIVE PLAN HD TODAY UF TO TW START EPOGEN CONSIDER NH PLACEMENT WILL FOLLOW LORRIE CHAVIS MD Jul 10, 2021 10:42
--- NOTE | 2021-07-10 11:32 | NUR ---
SS following for discharge planning. SS reviewed pt chart and discussed with pt RN. Pt is from home with sister and is currently on room air. Pt has outpatient hemodialysis at [facility], ; fax [phone]. Pt has home healthcare services with [facility], ; fax [phone]. Pt needing placement in facility. Pt has [employer] Medicare Replacement and is currently in co-pay days for group home unit. Pt reporting that she is unable to pay co-pays for group home unit and is unable to pay privately for LTC placement. SW at [facility] has been working on Medicaid application with pt. Medicaid has not been approved at this time. Per MIGNON, at [facility], pt is needing to provide additional financial documentation. SW at [facility] is assisting as well. SS contacted [facility], , and was notified that they are extremely familiar with pt and her sister. They have enrolled pt and sister in Caregivers Program and are assisting with services in the community as well. [facility] also working to assist with transportation to and from dialysis. DCF hotline completed for social situation and pt needs. Intake# [id number]. SS was notified that all services in the community are doing everything they can to assist pt at this time with needs. SS will continue to follow for discharge planning.
--- NOTE | 2021-07-10 13:23 | PDOC ---
[employer] PROGRESS NOTE Date of Service DOS: DATE: 07/10/21 TIME: 13:17 Chief Complaint Chief Complaint Assessment/Plan Failure to thrive in adult Physical debility ESRD on HD DM2 Normocytic anemia Severe malnutrition Plan: Nephrology consulted for HD Pending PT OT evaluation Social work/CM consulted FEN - Cardiac/diabetic/renal diet PPX - Heparin FULL CODE/surrogate decision-maker is her sister (Reina Martin) Dispo - inpatient for above History of Present Illness History of Present Illness 81-year-old female with past medical history ESRD on HD MWF who presents to the ED with complaints of generalized weakness. Apparently she was unable to get out of bed this morning, so she called EMS. Patient was at home with her sister who is also in poor health. Labs on admission showed hemoglobin 10.1, hematocrit 31.3, BUN 33, creatinine 4.7, CBG 220, albumin 2.2. Patient will be admitted for further medical management. 07/10/2021 No acute events overnight. Patient seen examined bedside. Resting comfortably. Blood pressure soft in the 90s over 50s. 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 Patient's chart, labs, images were reviewed and discussed with RN Vitals/I&O Vitals/I&O: Vital Signs Date Time Temp Pulse Resp B/P (MAP) Pulse Ox O2 Delivery O2 Flow Rate FiO2 07/10/21 08:00 Room Air 07/10/21 07:00 98.2 80 19 89/42 (58) 100 98.2 I & O 07/09/21 07/09/21 07/10/21 15:00 23:00 07:00 Intake Total 240 ml 0 ml Output Total 0 ml Balance 240 ml 0 ml Physical Exam General: Alert, Cooperative, No acute distress Heart: Regular rate Lungs: Clear Abdomen: Normal bowel sounds, No tenderness Extremities: No cyanosis Labs Labs: Laboratory Tests Test 07/09/21 14:15 07/09/21 17:00 07/09/21 20:20 07/09/21 20:52 White Blood Count 8.4 x10^3/uL (4.0-11.0) Red Blood Count 3.28 x10^6/uL (3.50-5.40) Hemoglobin 10.1 g/dL (12.0-15.5) Hematocrit 31.3 % (36.0-47.0) Mean Corpuscular Volume 95 fL (79-100) Mean Corpuscular Hemoglobin 31 pg (25-35) Mean Corpuscular Hemoglobin Concent 32 g/dL (31-37) Red Cell Distribution Width 16.9 % (11.5-14.5) Platelet Count 316 x10^3/uL (140-400) Neutrophils (%) (Auto) 77 % (31-73) Lymphocytes (%) (Auto) 14 % (24-48) Monocytes (%) (Auto) 8 % (0-9) Eosinophils (%) (Auto) 1 % (0-3) Basophils (%) (Auto) 1 % (0-3) Neutrophils # (Auto) 6.4 x10^3/uL (1.8-7.7) Lymphocytes # (Auto) 1.2 x10^3/uL (1.0-4.8) Monocytes # (Auto) 0.7 x10^3/uL (0.0-1.1) Eosinophils # (Auto) 0.1 x10^3/uL (0.0-0.7) Basophils # (Auto) 0.1 x10^3/uL (0.0-0.2) Sodium Level 140 mmol/L (136-145) Potassium Level 3.9 mmol/L (3.5-5.1) Chloride Level 99 mmol/L (98-107) Carbon Dioxide Level 26 mmol/L (21-32) Anion Gap 15 (6-14) Blood Urea Nitrogen 33 mg/dL (7-20) Creatinine 4.7 mg/dL (0.6-1.0) Estimated GFR (Cockcroft-Gault) 8.9 BUN/Creatinine Ratio 7 (6-20) Glucose Level 220 mg/dL (70-99) Calcium Level 9.0 mg/dL (8.5-10.1) Magnesium Level 1.7 mg/dL (1.8-2.4) Total Bilirubin 0.7 mg/dL (0.2-1.0) Aspartate Amino Transf (AST/SGOT) 19 U/L (15-37) Alanine Aminotransferase (ALT/SGPT) < 6 U/L (14-59) Alkaline Phosphatase 119 U/L (46-116) Troponin I High Sensitivity 21 ng/L (4-50) 17 ng/L (4-50) 16 ng/L (4-50) NB-Aez-Z-Type Natriuretic Peptide 5017 pg/mL (0-449) Total Protein 7.3 g/dL (6.4-8.2) Albumin 2.2 g/dL (3.4-5.0) Albumin/Globulin Ratio 0.4 (1.0-1.7) Thyroid Stimulating Hormone (TSH) 1.555 uIU/mL (0.358-3.74) Glucose (Fingerstick) 100 mg/dL (70-99) Test 07/10/21 07:24 07/10/21 08:15 Glucose (Fingerstick) 82 mg/dL (70-99) White Blood Count 6.2 x10^3/uL (4.0-11.0) Red Blood Count 3.04 x10^6/uL (3.50-5.40) Hemoglobin 9.2 g/dL (12.0-15.5) Hematocrit 29.5 % (36.0-47.0) Mean Corpuscular Volume 97 fL (79-100) Mean Corpuscular Hemoglobin 30 pg (25-35) Mean Corpuscular Hemoglobin Concent 31 g/dL (31-37) Red Cell Distribution Width 17.0 % (11.5-14.5) Platelet Count 364 x10^3/uL (140-400) Neutrophils (%) (Auto) 62 % (31-73) Lymphocytes (%) (Auto) 23 % (24-48) Monocytes (%) (Auto) 11 % (0-9) Eosinophils (%) (Auto) 3 % (0-3) Basophils (%) (Auto) 1 % (0-3) Neutrophils # (Auto) 3.8 x10^3/uL (1.8-7.7) Lymphocytes # (Auto) 1.4 x10^3/uL (1.0-4.8) Monocytes # (Auto) 0.7 x10^3/uL (0.0-1.1) Eosinophils # (Auto) 0.2 x10^3/uL (0.0-0.7) Basophils # (Auto) 0.1 x10^3/uL (0.0-0.2) Sodium Level 139 mmol/L (136-145) Potassium Level 3.8 mmol/L (3.5-5.1) Chloride Level 101 mmol/L (98-107) Carbon Dioxide Level 25 mmol/L (21-32) Anion Gap 13 (6-14) Blood Urea Nitrogen 37 mg/dL (7-20) Creatinine 4.5 mg/dL (0.6-1.0) Estimated GFR (Cockcroft-Gault) 9.4 BUN/Creatinine Ratio 8 (6-20) Glucose Level 110 mg/dL (70-99) Calcium Level 8.4 mg/dL (8.5-10.1) Total Bilirubin 0.5 mg/dL (0.2-1.0) Aspartate Amino Transf (AST/SGOT) 15 U/L (15-37) Alanine Aminotransferase (ALT/SGPT) < 6 U/L (14-59) Alkaline Phosphatase 103 U/L (46-116) Total Protein 6.0 g/dL (6.4-8.2) Albumin 2.0 g/dL (3.4-5.0) Albumin/Globulin Ratio 0.5 (1.0-1.7) Hepatitis B Surface Antigen Nonreactive (Nonreactive) Hepatitis B Surface Antibody Nonreactive Comment Review of Relevant I have reviewed the following items edis (where applicable) has been applied. Medications: Current Medications Medications (Trade) Dose Ordered Sig/Angy Route PRN Reason Start Time Stop Time Status Last Admin Dose Admin Sodium Chloride 250 ml @ 250 mls/hr 1X ONCE IV 07/09/21 14:30 07/09/21 15:29 DC 07/09/21 15:33 Heparin Sodium (Porcine) (Heparin Sodium) 5,000 unit Q12HR SQ 07/09/21 21:00 07/10/21 09:05 Aspirin (Aspirin Chewable) 81 mg DAILY PO 07/10/21 09:00 07/10/21 08:57 Atorvastatin Calcium (Lipitor) 40 mg QHS PO 07/09/21 21:00 07/09/21 20:58 Ferrous Sulfate (Feosol) 325 mg BIDWMEALS PO 07/10/21 08:00 07/10/21 08:57 Lactobacillus Rhamnosus (Culturelle) 1 cap BID PO 07/09/21 21:00 07/10/21 08:58 Nystatin (Nystop) 1 melissa QID TP 07/09/21 21:00 07/09/21 21:05 Pantoprazole Sodium (Protonix) 40 mg DAILYAC PO 07/10/21 07:30 07/10/21 06:20 Justifications for Admission Other Justification ANN WATKINS MD Jul 10, 2021 13:23
[2021-07-10 15:00] VITALS: BP 103/57
--- NOTE | 2021-07-10 16:48 | NUR ---
Pharmacy Medication Review S: Consulted for medication review re: C.diff Risk Assessment score of 4 O: MERRICK ARRIAGA is a 81 year old with: Previous C.diff infection: No Previous hospitalization: Within 30 days Recent antibiotics: No Use of gastric acid suppressor: Yes Transfer from OR/LTAC: No Current antibiotic regimen: NONE Current acid suppression regimen: PROTONIX A: Patient has been identified as having risk factors for C.diff infection as noted above. P: Antibiotic Regimen recommendation made: N/A Probiotic ordered: continued from home med list PPI changed to [id number]: YES [facility], 07/10/21 [id number]
[2021-07-10 19:00] VITALS: BP 104/59
[2021-07-10] MEDS: ATORVASTATIN CALCIUM 40 MG TABLET. PO SCH (20:25)
[2021-07-10 22:53] VITALS: BP 96/50
[2021-07-11 02:32] VITALS: BP 97/54
[2021-07-11 04:44] LABS: HEMATOCRIT 27.2 % (36.0-47.0); HEMOGLOBIN 8.8 g/dL (12.0-15.5); RED BLOOD COUNT 2.9 x10^6/uL (3.50-5.40); RED CELL DISTRIBUTION WIDTH 16.6 % (11.5-14.5); WHITE BLOOD COUNT 5.8 x10^3/uL (4.0-11.0)
[2021-07-11 05:20] LABS: CALCIUM 8.1 mg/dL (8.5-10.1); CREATININE 3.7 mg/dL (0.6-1.0); GFR 11.8; POTASSIUM 3.9 mmol/L (3.5-5.1)
[2021-07-11 07:00] VITALS: BP 97/52
[2021-07-11] MEDS ORDERED: DIALYSIS PATIENT. MC PRN ×2 (07:30)
[2021-07-11] MEDS ORDERED: IV NORMAL SALINE 1000ML BAG 1,000 ML IV PRN ×2 (07:30)
[2021-07-11] MEDS: INSULIN LISPRO 300 UNITS/3 ML VIAL. SQ SCH ×6 (08:00→17:00)
[2021-07-11] MEDS: FERROUS SULFATE 325 MG TABLET. PO SCH ×2 (08:00→17:00)
[2021-07-11] MEDS: HEPARIN for SUB-Q USE 5,000 UNIT/ML VIAL. SQ SCH ×2 (09:00→20:38)
[2021-07-11] MEDS: LACTOBACILLUS RHAMNOSUS GG 1 CAPSULE. PO SCH ×2 (09:00→20:38)
[2021-07-11] MEDS: NYSTATIN TOPICAL POWDER 15GM BOTTLE. TP SCH ×4 (09:00→20:44)
--- NOTE | 2021-07-11 10:28 | PDOC ---
Renal-Progress Notes Subjective Notes Notes NO NEW COMPLAINTS History of Present Illness Hx of present illness STABLE Vitals Vitals Vital Signs Date Time Temp Pulse Resp B/P (MAP) Pulse Ox O2 Delivery O2 Flow Rate FiO2 07/11/21 07:00 98.6 98 20 97/52 (67) 98 Room Air 98.6 Weight Weight [ ] I.O. Intake and Output Intake and Output 07/11/21 07:00 Intake Total 240 ml Balance 240 ml Intake Oral 240 ml # Voids 1 Labs Labs Laboratory Tests Test 07/10/21 16:52 07/10/21 20:14 07/11/21 03:55 07/11/21 07:48 Glucose (Fingerstick) 90 mg/dL (70-99) 205 mg/dL (70-99) 132 mg/dL (70-99) White Blood Count 5.8 x10^3/uL (4.0-11.0) Red Blood Count 2.90 x10^6/uL (3.50-5.40) Hemoglobin 8.8 g/dL (12.0-15.5) Hematocrit 27.2 % (36.0-47.0) Mean Corpuscular Volume 94 fL (79-100) Mean Corpuscular Hemoglobin 31 pg (25-35) Mean Corpuscular Hemoglobin Concent 33 g/dL (31-37) Red Cell Distribution Width 16.6 % (11.5-14.5) Platelet Count 319 x10^3/uL (140-400) Sodium Level 139 mmol/L (136-145) Potassium Level 3.9 mmol/L (3.5-5.1) Chloride Level 103 mmol/L (98-107) Carbon Dioxide Level 29 mmol/L (21-32) Anion Gap 7 (6-14) Blood Urea Nitrogen 19 mg/dL (7-20) Creatinine 3.7 mg/dL (0.6-1.0) Estimated GFR (Cockcroft-Gault) 11.8 Glucose Level 132 mg/dL (70-99) Calcium Level 8.1 mg/dL (8.5-10.1) Review of Systems Constitutional: yes: weakness, alert, oriented Ears/Nose/Throat: Yes: no symptom reported Eyes: Yes: no symptom reported Pulmonary: Yes no symptom reported Cardiovascular: Yes no symptom reported Gastrointestional: Yes: no symptom reported Genitourinary: Yes: no symptom reported Musculoskeletal: Yes: muscle stiffness Skin: Yes no symptom reported Psychiatric/Neurological: Yes: no symptom reported Endocrine: Yes: no symptom reported Physical Exam General Appearance: no apparent distress Skin: warm Respiratory: decreased breath sounds Heart: S1S2 Abdomen: soft, bowel sounds present Genitourinary: bladder flat Extremities: pulses present Neurology: alert Assessment Assessment IMP [id number] IJ TDC ANEMIA DM II HTN DECONDITIONING FAILURE TO THRIVE PLAN HD TODAY UF TO TW EPOGEN SW AWARE OF PLACEMENT NEEDS WILL FOLLOW LORRIE CHAVIS MD Jul 11, 2021 10:28
--- NOTE | 2021-07-11 11:24 | PDOC ---
[employer] [facility] PROGRESS NOTE Date of Service DOS: DATE: 07/11/21 TIME: 11:08 Chief Complaint Chief Complaint Assessment/Plan Failure to thrive in adult Physical debility ESRD on HD DM2 Normocytic anemia Severe malnutrition Plan: Nephrology consulted for HD Pending PT OT evaluation Social work/CM consulted FEN - Cardiac/diabetic/renal diet PPX - Heparin FULL CODE/surrogate decision-maker is her sister (Reina Martin) Dispo -working with several social workers in [facility] and at this facility to get her into an LTAC or SNF. History of Present Illness History of Present Illness 81-year-old female with past medical history ESRD on HD MWF who presents to the ED with complaints of generalized weakness. Apparently she was unable to get out of bed this morning, so she called EMS. Patient was at home with her sister who is also in poor health. Labs on admission showed hemoglobin 10.1, hematocrit 31.3, BUN 33, creatinine 4.7, CBG 220, albumin 2.2. Patient will be admitted for further medical management. 07/10/2021 No acute events overnight. Patient seen examined bedside. Resting comfortably. Blood pressure soft in the 90s over 50s. rider ticket worker discussing with several telephonic case manager at several institutions including her dialysis company, home health company, etc. Patient's chart, labs, images were reviewed and discussed with RN 07/11/2021 No acute events overnight. Patient seen examined during dialysis. Tolerating well. Very debilitated and unable to care for herself at home. Unsafe for discharge. Social work still working on her case. Patient's chart, labs, images were reviewed and discussed with RN Vitals/I&O Vitals/I&O: Vital Signs Date Time Temp Pulse Resp B/P (MAP) Pulse Ox O2 Delivery O2 Flow Rate FiO2 07/11/21 07:00 98.6 98 20 97/52 (67) 98 Room Air 98.6 I & O 07/10/21 07/10/21 07/11/21 15:00 23:00 07:00 Intake Total 240 ml 0 ml Balance 240 ml 0 ml Physical Exam General: Alert, Cooperative, No acute distress Heart: Regular rate Lungs: Clear Abdomen: Normal bowel sounds, No tenderness Extremities: No cyanosis Labs Labs: Laboratory Tests Test 07/10/21 16:52 07/10/21 20:14 07/11/21 03:55 07/11/21 07:48 Glucose (Fingerstick) 90 mg/dL (70-99) 205 mg/dL (70-99) 132 mg/dL (70-99) White Blood Count 5.8 x10^3/uL (4.0-11.0) Red Blood Count 2.90 x10^6/uL (3.50-5.40) Hemoglobin 8.8 g/dL (12.0-15.5) Hematocrit 27.2 % (36.0-47.0) Mean Corpuscular Volume 94 fL (79-100) Mean Corpuscular Hemoglobin 31 pg (25-35) Mean Corpuscular Hemoglobin Concent 33 g/dL (31-37) Red Cell Distribution Width 16.6 % (11.5-14.5) Platelet Count 319 x10^3/uL (140-400) Sodium Level 139 mmol/L (136-145) Potassium Level 3.9 mmol/L (3.5-5.1) Chloride Level 103 mmol/L (98-107) Carbon Dioxide Level 29 mmol/L (21-32) Anion Gap 7 (6-14) Blood Urea Nitrogen 19 mg/dL (7-20) Creatinine 3.7 mg/dL (0.6-1.0) Estimated GFR (Cockcroft-Gault) 11.8 Glucose Level 132 mg/dL (70-99) Calcium Level 8.1 mg/dL (8.5-10.1) Comment Review of Relevant I have reviewed the following items edis (where applicable) has been applied. Justifications for Admission Other Justification ANN WATKINS MD Jul 11, 2021 11:24
[2021-07-11] MEDS: ASPIRIN CHEWABLE 81 MG TABLET. PO SCH (13:03)
[2021-07-11 15:00] VITALS: BP 99/53
--- NOTE | 2021-07-11 15:36 | NUR ---
SS following up with discharge planning. SS reviewed pt chart and discussed with pt RN. Pt is currently on room air. Pt has outpatient hemodialysis at [facility], ; fax [phone]. Pt has home healthcare services with [facility], ; fax [phone]. Pt needing placement in facility. Pt does not have Medicaid at this time. SW at [facility] is working on Medicaid application and is needing additional documentation such as bank statements. Pt also has life insurance policy that needs to be liquidated. Pt reporting that she cannot afford to private pay for placement and cannot afford co-pays for senior living unit. Pt and sister working with the Department of [facility] on Aging as well. Discharge plan is currently to return to home with continued services at discharge. SS will continue to follow for discharge planning.
[2021-07-11 19:00] VITALS: BP 105/52
[2021-07-11] MEDS: ATORVASTATIN CALCIUM 40 MG TABLET. PO SCH (20:41)
[2021-07-11] MEDS ORDERED: EPOETIN ALFA-EPBX for ESRD 20,000 UNIT/ML VIAL. SQ SCH (21:00)
[2021-07-11] MEDS ORDERED: FAMOTIDINE 20 MG TABLET. PO SCH (21:00)
[2021-07-11] MEDS ORDERED: EPOETIN ALFA 20,000 UNIT/ML VIAL for DIALYSIS PTS. SQ SCH (21:00)
[2021-07-11 23:00] VITALS: BP 96/54
[2021-07-12 02:56] VITALS: BP 109/55
[2021-07-12 07:00] VITALS: BP 107/59
[2021-07-12] MEDS: INSULIN LISPRO 300 UNITS/3 ML VIAL. SQ SCH ×6 (08:00→17:27)
[2021-07-12] MEDS: NYSTATIN TOPICAL POWDER 15GM BOTTLE. TP SCH ×4 (09:00→20:46)
[2021-07-12] MEDS: ASPIRIN CHEWABLE 81 MG TABLET. PO SCH (09:01)
[2021-07-12] MEDS: LACTOBACILLUS RHAMNOSUS GG 1 CAPSULE. PO SCH ×2 (09:01→20:43)
[2021-07-12] MEDS: FERROUS SULFATE 325 MG TABLET. PO SCH ×2 (09:02→16:35)
[2021-07-12] MEDS: HEPARIN for SUB-Q USE 5,000 UNIT/ML VIAL. SQ SCH ×2 (09:09→20:44)
--- NOTE | 2021-07-12 10:45 | PDOC ---
Renal-Progress Notes Subjective Notes Notes NO NEW COMPLAINTS History of Present Illness Hx of present illness STABLE Vitals Vitals Vital Signs Date Time Temp Pulse Resp B/P (MAP) Pulse Ox O2 Delivery O2 Flow Rate FiO2 07/12/21 07:00 97.5 88 16 107/59 (75) 98 Room Air 97.5 Weight Weight [ ] I.O. Intake and Output Intake and Output 07/12/21 07:00 Intake Total 340 ml Balance 340 ml Intake Oral 340 ml # Voids 2 Labs Labs Laboratory Tests Test 07/11/21 12:56 07/11/21 17:14 07/11/21 20:36 07/12/21 07:46 Glucose (Fingerstick) 90 mg/dL (70-99) 184 mg/dL (70-99) 144 mg/dL (70-99) 101 mg/dL (70-99) Review of Systems Constitutional: yes: weakness, alert, oriented Ears/Nose/Throat: Yes: no symptom reported Eyes: Yes: no symptom reported Pulmonary: Yes no symptom reported Cardiovascular: Yes no symptom reported Gastrointestional: Yes: no symptom reported Genitourinary: Yes: no symptom reported Musculoskeletal: Yes: muscle stiffness Skin: Yes no symptom reported Psychiatric/Neurological: Yes: no symptom reported Endocrine: Yes: no symptom reported Physical Exam General Appearance: no apparent distress Skin: warm Respiratory: decreased breath sounds Heart: S1S2 Abdomen: soft, bowel sounds present Genitourinary: bladder flat Extremities: pulses present Neurology: alert Assessment Assessment IMP [id number] IJ TDC ANEMIA DM II HTN DECONDITIONING FAILURE TO THRIVE PLAN HD TOMORROW EPOGEN SW AWARE OF PLACEMENT NEEDS WILL FOLLOW LORRIE CHAVIS MD Jul 12, 2021 10:45
[2021-07-12 11:00] VITALS: BP 95/52
--- NOTE | 2021-07-12 11:49 | PDOC ---
[employer] [facility] PROGRESS NOTE Date of Service DOS: DATE: 07/12/21 TIME: 11:31 Chief Complaint Chief Complaint Assessment/Plan Failure to thrive in adult Physical debility ESRD on HD DM2 Normocytic anemia Severe malnutrition Plan: Nephrology consulted for HD Pending PT OT evaluation Social work/CM consulted FEN - Cardiac/diabetic/renal diet PPX - Heparin FULL CODE/surrogate decision-maker is her sister (Reina Martin) Dispo -working with several social workers in [facility] and at this facility to get her into an LTAC or SNF. History of Present Illness History of Present Illness 81-year-old female with past medical history ESRD on HD MWF who presents to the ED with complaints of generalized weakness. Apparently she was unable to get out of bed this morning, so she called EMS. Patient was at home with her sister who is also in poor health. Labs on admission showed hemoglobin 10.1, hematocrit 31.3, BUN 33, creatinine 4.7, CBG 220, albumin 2.2. Patient will be admitted for further medical management. 07/10/2021 No acute events overnight. Patient seen examined bedside. Resting comfortably. Blood pressure soft in the 90s over 50s. stockroom worker discussing with several comp field case manager at several institutions including her dialysis company, home health company, etc. Patient's chart, labs, images were reviewed and discussed with RN 07/11/2021 No acute events overnight. Patient seen examined during dialysis. Tolerating well. Very debilitated and unable to care for herself at home. Unsafe for discharge. Social work still working on her case. Patient's chart, labs, images were reviewed and discussed with RN 07/12/2021 No acute events overnight. Patient seen examined bedside. Sugars in the 30s and I have adjusted her insulin regimen. Blood pressure also the low 90s 200s systolic. So I have started midodrine for her. Patient's chart, labs, images were reviewed and discussed with RN Vitals/I&O Vitals/I&O: Vital Signs Date Time Temp Pulse Resp B/P (MAP) Pulse Ox O2 Delivery O2 Flow Rate FiO2 07/12/21 07:00 97.5 88 16 107/59 (75) 98 Room Air 97.5 I & O 07/11/21 07/11/21 07/12/21 15:00 23:00 07:00 Intake Total 0 ml 340 ml Balance 0 ml 340 ml Physical Exam General: Alert, Cooperative, No acute distress Heart: Regular rate Lungs: Clear Abdomen: Normal bowel sounds, No tenderness Extremities: No cyanosis Labs Labs: Laboratory Tests Test 07/11/21 12:56 07/11/21 17:14 07/11/21 20:36 07/12/21 07:46 Glucose (Fingerstick) 90 mg/dL (70-99) 184 mg/dL (70-99) 144 mg/dL (70-99) 101 mg/dL (70-99) Test 07/12/21 11:20 07/12/21 11:22 Glucose (Fingerstick) 34 mg/dL (70-99) 34 mg/dL (70-99) Comment Review of Relevant I have reviewed the following items edis (where applicable) has been applied. Medications: Current Medications Medications (Trade) Dose Ordered Sig/Angy Route PRN Reason Start Time Stop Time Status Last Admin Dose Admin Famotidine (Pepcid) 20 mg Q48H PO 07/11/21 21:00 07/11/21 20:39 Epoetin Romulo (PROCRIT for DIALYSIS PTS) 10,000 unit MoWeFr@2100 SQ 07/11/21 21:00 07/11/21 21:36 Justifications for Admission Other Justification ANN WATKINS MD Jul 12, 2021 11:49
--- NOTE | 2021-07-12 12:07 | NUR ---
Patient had a blood glucose of 34 at 1120. IV Dextrose and apple juice were given. Blood glucose was rechecked at 1145 and it came up to 134. Patient is eating and no insulin will be given for this meal.
--- NOTE | 2021-07-12 12:55 | NUR ---
SS following up with discharge planning. SS reviewed pt chart and discussed with pt RN. Pt is currently on room air. Pt has outpatient hemodialysis at [facility] ; fax [phone]. Pt has home healthcare services with [facility], ; fax [phone]. Pt needing placement in facility. Pt does not have Medicaid at this time. SW at [facility] is working on Medicaid application and is needing additional documentation such as bank statements. Pt also has life insurance policy that needs to be liquidated. Pt reporting that she cannot afford to private pay for placement and cannot afford co-pays for assisted unit. Pt and sister working with the Department of [facility] on Aging as well. Discharge plan is currently to return to home with continued services at discharge. SS will continue to follow for discharge planning.
[2021-07-12 15:00] VITALS: BP 102/52
[2021-07-12] MEDS: MIDODRINE 2.5 MG TABLET PO SCH ×2 (16:35→17:23)
[2021-07-12 19:00] VITALS: BP 94/51
[2021-07-12] MEDS: ATORVASTATIN CALCIUM 40 MG TABLET. PO SCH (20:43)
[2021-07-12 23:00] VITALS: BP 89/61
[2021-07-13 02:53] VITALS: BP 106/54
[2021-07-13 07:00] VITALS: BP 93/50
[2021-07-13] MEDS: INSULIN LISPRO 300 UNITS/3 ML VIAL. SQ SCH ×6 (08:00→16:55)
[2021-07-13] MEDS: FERROUS SULFATE 325 MG TABLET. PO SCH ×2 (08:00→16:09)
[2021-07-13] MEDS: ASPIRIN CHEWABLE 81 MG TABLET. PO SCH (08:26)
[2021-07-13] MEDS: LACTOBACILLUS RHAMNOSUS GG 1 CAPSULE. PO SCH (08:26)
[2021-07-13] MEDS: MIDODRINE 2.5 MG TABLET PO SCH ×3 (08:26→16:09)
[2021-07-13] MEDS: HEPARIN for SUB-Q USE 5,000 UNIT/ML VIAL. SQ SCH (08:27)
[2021-07-13] MEDS: NYSTATIN TOPICAL POWDER 15GM BOTTLE. TP SCH ×3 (08:27→15:37)
[2021-07-13] MEDS ORDERED: 0.9 % SODIUM CHLORIDE 10 ML DISP.SYRIN. IV PRN ×2 (08:45)
[2021-07-13] MEDS ORDERED: DIALYSIS PATIENT. MC PRN ×2 (08:45)
[2021-07-13] MEDS ORDERED: IV NORMAL SALINE 1000ML BAG 1,000 ML IV PRN ×2 (08:45)
[2021-07-13] MEDS ORDERED: ALTEPLASE 2 MG VIAL INT CAT ONE (10:45)
--- NOTE | 2021-07-13 10:55 | SNU/HH DC ---
DISCHARGE WITH HOME HEALTH DISCHARGE INFORMATION: Discharge Date: Jul 13, 2021 Condition on Discharge: Guarded HOME HEALTH: Face to Face: I certify this patient is under my care and that I, or a nurse practitioner or physician's processing assistant working with me, had a face to face encounter that meets the physician face to face encounter requirements with this patient on []. Medical Complications: CHF, DM, Falls Custodial For: Assess Cardiopulm Status, Assess & Educate Safety, Diabetic Care, Enteral Feeding Care, Medication Management RN For Eval/Treatment: Yes Physical Therapy For: Evalulation/Treatment Occupational Therapy For: Evaluation/Treatment Home Health Aide For: Self-care SOLICITOR PATENT For: Community Resources Pt Meets Homebound Status: Poor coordination w/ amb., Unsteady balance w/ amb,, Extreme weakness w/ amb., Fatigue w/ amb., Frequent falls w/ injury, Limited distance walking POST DISCHARGE ORDERS: Activity Instructions for Disc: Activity as tolerated Weight Bearing Status after Di: As tolerated DIET AFTER DISCHARGE: Cardiac Wound/Incision Care: Ice to area for comfort, No wound care needed CHECKS AFTER DISCHARGE: Checks after discharge: Check blood press - daily, Check blood sugar, ac/hs, Check your Temp as needed FOLLOW-UP: Follow up with: PCP within 2 weeks of discharge Follow Up With: Nephrology for your regular HD sessions DC TO SNF LABS: CBC, renal panel in 1 week TREATMENT/EQUIPMENT ORDERS: Adaptive Equipment Issued: Bath Bench, Raised toilet seat w/arms, Walker CERTIFICATION STATEMENT: Certification Statement: Certification Statement: Based on the above finding, I certify that this patient is confined to the home and needs intermittent assisted care, physical therapy and/or speech therapy, or continues to need occupational therapy.~ This patient is under my care, and I have initiated the establishment of the plan of care.~ This patient will be followed by myself or a community physician who will periodically review the plan of care. Home Meds Active Scripts Insulin Aspart (NOVOLOG) 100 Unit/1 Ml Cartridge, 5 UNIT SQ TIDAC for dm for 30 Days, #1 EACH Prov:NARCISO SHIELDS III DO 04/17/21 Polyethylene Glycol 3350 (POLYETHYLENE GLYCOL 3350) 17 Gm Powd.pack, 17 GM PO DAILY PRN for CONSTIPATION for 30 Days, #30 PKT 1 Refill Prov:TIAN NYE MD 12/26/20 Aspirin (ASPIRIN) 81 Mg Tab.chew, 1 TAB PO DAILY for A-fib prophylaxis, #30 TAB 3 Refills Prov:TIAN NYE MD 12/26/20 Nystatin (NYSTOP) 60 Gm Powder, 1 VU TP QID for yeast infection for 15 Days, #1 MISC Prov:JASON TILLEY MD 10/21/19 Acetaminophen (TYLENOL) 325 Mg Tablet, 1-2 TAB PO QID PRN for PAIN, #60 TAB Prov:LILI SCHAEFER MD 09/09/19 Reported Medications Midodrine Hcl (MIDODRINE HCL) 5 Mg Tablet, 5 MG PO TID for , TAB 07/10/21 Insulin Glargine,Hum.rec.anlog (LANTUS SOLOSTAR) 100 Unit/1 Ml Insuln.pen, 8 UNIT SQ QHS for , #15 ML 3 Refills 07/10/21 Ergocalciferol (Vitamin D2) (VITAMIN D2) 50,000 Unit Capsule, 1 CAP PO WEEKLY, #4 CAP 5 Refills 06/21/16 Pantoprazole Sodium (PANTOPRAZOLE SODIUM ) 40 Mg Tablet.dr, 1 TAB PO DAILY, #30 TAB 3 Refills 04/01/16 Atorvastatin Calcium (ATORVASTATIN CALCIUM) 40 Mg Tablet, 1 TAB PO QHS, #90 TAB 3 Refills 04/01/16 Discontinued Reported Medications Furosemide (FUROSEMIDE) 40 Mg Tablet, 40 MG PO DAILY for , TAB 07/10/21 ANN WATKINS MD Jul 13, 2021 10:55
--- NOTE | 2021-07-13 11:22 | PDOC ---
Renal-Progress Notes Subjective Notes Notes NO NEW COMPLAINTS History of Present Illness Hx of present illness STABLE Vitals Vitals Vital Signs Date Time Temp Pulse Resp B/P (MAP) Pulse Ox O2 Delivery O2 Flow Rate FiO2 07/13/21 08:26 84 93/50 07/13/21 07:58 Room Air 07/13/21 07:00 97.8 16 98 97.8 Weight Weight [ ] I.O. Intake and Output Intake and Output 07/13/21 07:00 Intake Total 336 ml Output Total 1 ml Balance 335 ml Intake Oral 336 ml Output Urine Total 1 ml # Voids 1 Labs Labs Laboratory Tests Test 07/12/21 11:22 07/12/21 11:45 07/12/21 11:49 07/12/21 17:00 Glucose (Fingerstick) 34 mg/dL (70-99) 134 mg/dL (70-99) 168 mg/dL (70-99) Glucose Level 125 mg/dL (70-99) Test 07/12/21 20:35 07/13/21 08:14 Glucose (Fingerstick) 104 mg/dL (70-99) 127 mg/dL (70-99) Review of Systems Constitutional: yes: weakness, alert, oriented Ears/Nose/Throat: Yes: no symptom reported Eyes: Yes: no symptom reported Pulmonary: Yes no symptom reported Cardiovascular: Yes no symptom reported Gastrointestional: Yes: no symptom reported Genitourinary: Yes: no symptom reported Musculoskeletal: Yes: muscle stiffness Skin: Yes no symptom reported Psychiatric/Neurological: Yes: no symptom reported Endocrine: Yes: no symptom reported Physical Exam General Appearance: no apparent distress Skin: warm Respiratory: decreased breath sounds Heart: S1S2 Abdomen: soft, bowel sounds present Genitourinary: bladder flat Extremities: pulses present Neurology: alert Assessment Assessment IMP [id number] IJ TDC ANEMIA DM II HTN DECONDITIONING FAILURE TO THRIVE PLAN HD TODAY UF TO TW BFR POOR WILL USE TPA IF NEEDED EPOGEN SW AWARE OF PLACEMENT NEEDS WILL FOLLOW LORRIE CHAVIS MD Jul 13, 2021 11:22
[2021-07-13] MEDS ORDERED: MIDODRINE 2.5 MG TABLET PO ONE (11:30)
--- NOTE | 2021-07-13 11:32 | NUR ---
SS following up with discharge planning. SS reviewed pt chart and discussed with pt RN. Pt is currently on room air. Pt has outpatient hemodialysis at [facility], ; fax [phone]. Discharge orders received for home with home healthcare and sent to [facility], ; [phone]. Pt will discharge today and return to home between 1700 and 1730 via [facility], . Pt and pt's RN notified.
[2021-07-13 15:00] VITALS: BP 99/55
[2021-07-13 16:09] VITALS: BP 99/55
--- NOTE | 2021-07-13 17:22 | NUR ---
Discharge Note: MERRICK ARRIAGA [address] Discharge instructions and discharge home medications reviewed with Patient and a copy given. All questions have been answered and understanding verbalized. The following instructions and handouts were given: information about activity, diet, medications, follow up appointments. Discontinued lines and drains: IV line in right AC removed, catheter tip intact. Patient discharged to home with [facility] transferred patient to transport vehicle via [employer].
[2021-07-16] MEDS ORDERED: ERGOCALCIFEROL (VITAMIN D2) 50,000 UNIT CAPSULE. PO SCH (09:00)
--- NOTE | 2021-07-17 16:01 | PDOC3 ---
[facility]-Discharge Summary Date of Admission: Date of Admission: Jul 09, 2021 Date of Discharge: Date of Discharge: Jul 13, 2021 Discharge Diagnosis: Discharge Diagnosis: Failure to thrive in adult Physical debility ESRD on HD DM2 Normocytic anemia Severe malnutrition Consults: Consults: Nephrology: PLAN HD TODAY UF TO TW BFR POOR WILL USE TPA IF NEEDED EPOGEN SW AWARE OF PLACEMENT NEEDS WILL FOLLOW Procedures: Procedures: PROCEDURE: CT HEAD WO CONTRAST Examination: CT HEAD INDICATION: Weakness COMPARISON: 10/08/2020 Exposure: One or more of the following individualized dose reduction techniques were utilized for this examination: 1. Automated exposure control 2. Adjustment of the mA and/or kV according to patient size 3. Use of iterative reconstruction technique TECHNIQUE: 5 mm contiguous axial images were obtained from the skull base to the vertex in both bone and soft tissue algorithm. FINDINGS: Mild bilateral periventricular white matter hypodensities likely chronic small vessel ischemic disease. No evidence of acute intracranial hemorrhage. No extra-axial fluid collections. No mass effect or midline shift. Ventricular size is appropriate. Basal cisterns are patent. No fractures identified.Dumont-white differentiation is preserved.Globes and orbits are within normal limits. Paranasal sinuses and mastoid air cells are clear. IMPRESSION: No acute intracranial findings. PROCEDURE: PORTABLE CHEST 1V AP chest. HISTORY: Weakness AP view was taken of the chest. There is a right dialysis catheter extending to the right atrium without change. Lungs are free of infiltrates. Heart is normal in size. There is no effusion. IMPRESSION: 1. No acute infiltrates. Hospital Course: Hospital Course: 81-year-old female with past medical history ESRD on HD MWF who presents to the ED with complaints of generalized weakness. Apparently she was unable to get out of bed this morning, so she called EMS. Patient was at home with her sister who is also in poor health. Labs on admission showed hemoglobin 10.1, he matocrit 31.3, BUN 33, creatinine 4.7, CBG 220, albumin 2.2. Patient will be admitted for further medical management. 07/10/2021 No acute events overnight. Patient seen examined bedside. Resting comfortably. Blood pressure soft in the 90s over 50s. 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 Patient's chart, labs, images were reviewed and discussed with RN 07/11/2021 No acute events overnight. Patient seen examined during dialysis. Tolerating well. Very debilitated and unable to care for herself at home. Unsafe for discharge. Social work still working on her case. Patient's chart, labs, images were reviewed and discussed with RN 07/12/2021 No acute events overnight. Patient seen examined bedside. Sugars in the 30s and I have adjusted her insulin regimen. Blood pressure also the low 90s 200s systolic. So I have started midodrine for her. Patient's chart, labs, images were reviewed and discussed with RN Patient will be discharged with high risk for readmission due to patient unable to care for self at home. She does have help from her sister but she felt this is Adequate. Patient has multiple resources outside of the hospital to assist her with placement. However it is not feasible for the hospital to keep her if there is no active medical issues to address. Patient's chart, labs, images were reviewed and discussed with home health care social worker and case management team. Rest of hospital course was uneventful Disposition: Disposition/Orders: D/C to Home w/ HH Activity: Activity: Resume previous activity Diet: Diet: Renal Medications: Home Meds Active Scripts Insulin Aspart (NOVOLOG) 100 Unit/1 Ml Cartridge, 5 UNIT SQ TIDAC for dm for 30 Days, #1 EACH Prov:NARCISO SHIELDS III DO 04/17/21 Polyethylene Glycol 3350 (POLYETHYLENE GLYCOL 3350) 17 Gm Powd.pack, 17 GM PO DAILY PRN for CONSTIPATION for 30 Days, #30 PKT 1 Refill Prov:TIAN NYE MD 12/26/20 Aspirin (ASPIRIN) 81 Mg Tab.chew, 1 TAB PO DAILY for A-fib prophylaxis, #30 TAB 3 Refills Prov:TIAN NYE MD 12/26/20 Nystatin (NYSTOP) 60 Gm Powder, 1 VU TP QID for yeast infection for 15 Days, #1 MISC Prov:JASON TILLEY MD 10/21/19 Acetaminophen (TYLENOL) 325 Mg Tablet, 1-2 TAB PO QID PRN for PAIN, #60 TAB Prov:LILI SCHAEFER MD 09/09/19 Reported Medications Midodrine Hcl (MIDODRINE HCL) 5 Mg Tablet, 5 MG PO TID for , TAB 07/10/21 Insulin Glargine,Hum.rec.anlog (LANTUS SOLOSTAR) 100 Unit/1 Ml Insuln.pen, 8 UNIT SQ QHS for , #15 ML 3 Refills 07/10/21 Ergocalciferol (Vitamin D2) (VITAMIN D2) 50,000 Unit Capsule, 1 CAP PO WEEKLY, #4 CAP 5 Refills 06/21/16 Pantoprazole Sodium (PANTOPRAZOLE SODIUM ) 40 Mg Tablet.dr, 1 TAB PO DAILY, #30 TAB 3 Refills 04/01/16 Atorvastatin Calcium (ATORVASTATIN CALCIUM) 40 Mg Tablet, 1 TAB PO QHS, #90 TAB 3 Refills 04/01/16 Discontinued Reported Medications Furosemide (FUROSEMIDE) 40 Mg Tablet, 40 MG PO DAILY for , TAB 07/10/21 Scheduled Aspirin (Aspirin), 1 TAB PO DAILY Atorvastatin Calcium (Atorvastatin Calcium), 1 TAB PO QHS, (Reported) Ergocalciferol (Vitamin D2) (Vitamin D2), 1 CAP PO WEEKLY, (Reported) Insulin Aspart (Novolog), 5 UNIT SQ TIDAC Insulin Glargine,Hum.rec.anlog (Lantus Solostar), 8 UNIT SQ QHS, (Reported) Midodrine Hcl (Midodrine Hcl), 5 MG PO TID, (Reported) Nystatin (Nystop), 1 VU TP QID Pantoprazole Sodium (Pantoprazole Sodium ), 1 TAB PO DAILY, (Reported) Scheduled PRN Acetaminophen (Tylenol), 1-2 TAB PO QID PRN for PAIN Polyethylene Glycol 3350 (Polyethylene Glycol 3350), 17 GM PO DAILY PRN for CONSTIPATION Discontinued Medications Furosemide (Furosemide), 40 MG PO DAILY, (Reported) Total Time: Total Time: Total time spent was 35 minutes in preparing scripts, discharge planning with SWI and RN and preparing this discharge summary Patient seen and examined on day of discharge. No acute abnormal findings. Justicifation of Admission Dx: Justifications for Admission: Justification of Admission Dx: Yes Acute Renal Failure: RF Can't Be Managed Outpt Chronic Renal Failure: Renail Failure ANN WATKINS MD Jul 17, 2021 16:01
== END 2021-07-13 17:22 | disposition home health service (06) | DRG 291 ==
LOC: ER 14:05 → ED HOLD 17:53 → 6 SOUTH 18:29
PROVIDERS: ADMIT Family Medicine; ATTEND Family Medicine
PROC: 5A1D70Z Performance of Urinary Filtration, Intermittent, Less than 6 Hours Per Day (ICD-10-PCS; 2021-07-10)
PROC: 5A1D70Z Performance of Urinary Filtration, Intermittent, Less than 6 Hours Per Day (ICD-10-PCS; 2021-07-11)
PROC: 5A1D70Z Performance of Urinary Filtration, Intermittent, Less than 6 Hours Per Day (ICD-10-PCS; principal; 2021-07-13)
DX: I13.2 Hypertensive heart and chronic kidney disease with heart failure and with stage 5 chronic kidney disease, or end stage renal disease (principal); E43 Unspecified severe protein-calorie malnutrition; N18.6 End stage renal disease; R62.7 Adult failure to thrive; K21.9 Gastro-esophageal reflux disease without esophagitis; D64.9 Anemia, unspecified; E11.22 Type 2 diabetes mellitus with diabetic chronic kidney disease; E78.00 Pure hypercholesterolemia, unspecified; E78.5 Hyperlipidemia, unspecified; I48.91 Unspecified atrial fibrillation; I50.9 Heart failure, unspecified; Z82.49 Family history of ischemic heart disease and other diseases of the circulatory system; Z86.711 Personal history of pulmonary embolism; Z99.2 Dependence on renal dialysis; E21.3 Hyperparathyroidism, unspecified; M10.9 Gout, unspecified; Z68.32 Body mass index [BMI] 32.0-32.9, adult
CPT/HCPCS: 36415; 71045; 80048; 80053; 82947; 82962; 83735; 83880; 84443; 84484; 85025; 85027; 86317; 86706; 87340; 93005; 96360; J1644; J1815; J2997; J7050; 97530-GP; 97535-GO; 99285-25; G0378; J7030; Q4081